=== PATIENT | female | born 1970 | race Caucasian/White ===

== ENCOUNTER 2018-09-12 16:51 | Inpatient (IN) ==
[2018-09-12] MEDS ORDERED: GLUCAGON 1 MG VIAL IM PRN (18:55)
[2018-09-12] MEDS ORDERED: ONDANSETRON 4 MG/2 ML VIAL IV PRN (18:55)
[2018-09-12] MEDS ORDERED: DEXTROSE 50% 25 GM/50 ML SYRINGE IV PRN (18:55)
[2018-09-12] MEDS ORDERED: PROMETHAZINE 25 MG/1 ML VIAL IM PRN (18:55)
[2018-09-12] MEDS: SODIUM CHLORIDE 0.9% 1,000 ML IV SCH (20:00)
[2018-09-12] MEDS ORDERED: INSULIN REGULAR 100 UNIT/ML SUBCUT SCH (21:00)
[2018-09-12] MEDS: INSULIN REGULAR 100 UNIT/ML SUBCUT SCH (23:17)
[2018-09-12] MEDS ORDERED: INFLUENZA VIRUS VACCINE 0.5 ML SYRINGE IM ONE (23:31)
[2018-09-12] MEDS ORDERED: PNEUMOCOCCAL VACCINE (23 VALENT) 0.5 ML VIAL IM ONE (23:31)
[2018-09-13] MEDS: MORPHINE 4 MG/1 ML VIAL IV PRN ×3 (01:37→21:19)
[2018-09-13] MEDS: SODIUM CHLORIDE 0.9% 1,000 ML IV SCH ×3 (03:35→22:27)
[2018-09-13 08:12] LABS: Basophils % 0.5 % (0.0-0.8); Eosinophils # 0.1 10*3/uL (0.0-0.87); Eosinophils % 2.3 % (0.00-10.9); Hemoglobin 11.7 GM/DL (12.0-16.0); Immature Granulocytes % 1.1 %; Immature Granulocytes Absolute 0.07 #; Lymphocytes # 1.9 10*3/uL (1.4-4.0); Lymphocytes % 30.7 % (21.3-54.2); Mean Corpuscular HGB Conc 32.5 GM/DL (32-36); Mean Corpuscular Hemoglobin 30 PG (27-34); Mean Corpuscular Volume 92.3 FL (87-102); Mean Platelet Volume 12.1 FL (9.6-12.0); Monocytes # 0.6 10*3/uL (0.11-0.8); Monocytes % 8.9 % (1.7-12.7); Neutrophils # 3.5 10*3/uL (1.4-7.4); Neutrophils % 56.5 % (38.7-73.9); Platelet Count 223 T/CUMM (130-400); Red Cell Distribution Width 14.6 % (9.3-17.3); White Blood Count 6.2 T/CUMM (4-12)
[2018-09-13] MEDS: INSULIN REGULAR 100 UNIT/ML SUBCUT SCH ×4 (08:26→21:13)
[2018-09-13] MEDS: LISINOPRIL 20 MG TABLET PO SCH (08:27)
[2018-09-13 08:44] LABS: Albumin 1.8 G/DL (3.4-5.0); Bilirubin,Total 6.6 MG/DL (0.2-1.0); Calcium 8.1 MG/DL (8.5-10.1); Osmolality,Calculated 278.7 MOS/KG (273-304); Potassium 3.9 MMOL/L (3.5-5.1); Total Protein 5.8 G/DL (6.4-8.3)
[2018-09-13 09:35] LABS: Hepatitis A Ab IgM Quant 0.09 Index; Hepatitis A Ab IgM Result Negative (Negative); Hepatitis B Core IgM Quant 0.08 Index; Hepatitis B Core IgM Result Negative (Negative); Hepatitis B Surface Ag Quant < 0.10 Index; Hepatitis B Surface Ag Result Negative (Negative); Hepatitis C Virus Ab Quant > 11.00 Index; Hepatitis C Virus Ab Result Positive (Negative)
[2018-09-13] MEDS ORDERED: DEXTROSE 50% 25 GM/50 ML VIAL IV PRN (10:27)
[2018-09-13] MEDS ORDERED: GLUCAGON 1 MG VIAL IM PRN (10:27)
[2018-09-14] MEDS: SODIUM CHLORIDE 0.9% 1,000 ML IV SCH ×3 (01:34→18:30)
[2018-09-14 05:02] LABS: Basophils % 0.4 % (0.0-0.8); Eosinophils # 0.1 10*3/uL (0.0-0.87); Eosinophils % 1.9 % (0.00-10.9); Hematocrit 35.5 VOL% (35.7-47.0); Immature Granulocytes % 0.8 %; Immature Granulocytes Absolute 0.04 #; Lymphocytes # 1.6 10*3/uL (1.4-4.0); Lymphocytes % 29.8 % (21.3-54.2); Mean Corpuscular Hemoglobin 29 PG (27-34); Mean Corpuscular Volume 94.4 FL (87-102); Mean Platelet Volume 12.5 FL (9.6-12.0); Monocytes # 0.7 10*3/uL (0.11-0.8); Monocytes % 12.3 % (1.7-12.7); Neutrophils # 2.9 10*3/uL (1.4-7.4); Neutrophils % 54.8 % (38.7-73.9); Platelet Count 202 T/CUMM (130-400); Red Blood Count 3.76 MC/CUMM (3.8-5.5); Red Cell Distribution Width 14.6 % (9.3-17.3); White Blood Count 5.3 T/CUMM (4-12)
[2018-09-14 05:38] LABS: Albumin 1.7 G/DL (3.4-5.0); Bilirubin,Total 5.9 MG/DL (0.2-1.0); Calcium 8.1 MG/DL (8.5-10.1); Osmolality,Calculated 279.1 MOS/KG (273-304); Potassium 4.1 MMOL/L (3.5-5.1); Total Protein 5.5 G/DL (6.4-8.3)
[2018-09-14] MEDS: INSULIN REGULAR 100 UNIT/ML SUBCUT SCH (08:25)
[2018-09-14] MEDS: LISINOPRIL 20 MG TABLET PO SCH (08:26)
[2018-09-14] MEDS: MORPHINE 4 MG/1 ML VIAL IV PRN ×3 (08:26→22:40)
[2018-09-14] MEDS: INSULIN LISPRO 100 UNIT/ML SUBCUT SCH ×3 (12:29→20:29)
[2018-09-15] MEDS: SODIUM CHLORIDE 0.9% 1,000 ML IV SCH ×3 (04:15→17:29)
[2018-09-15] MEDS: MORPHINE 4 MG/1 ML VIAL IV PRN ×4 (04:17→21:26)
[2018-09-15 05:33] LABS: Basophils % 0.3 % (0.0-0.8); Eosinophils # 0.1 10*3/uL (0.0-0.87); Eosinophils % 2.1 % (0.00-10.9); Hematocrit 35.5 VOL% (35.7-47.0); Hemoglobin 11.2 GM/DL (12.0-16.0); Immature Granulocytes Absolute 0.06 #; Lymphocytes % 32.2 % (21.3-54.2); Mean Corpuscular HGB Conc 31.5 GM/DL (32-36); Mean Corpuscular Hemoglobin 30 PG (27-34); Mean Corpuscular Volume 93.4 FL (87-102); Monocytes # 0.7 10*3/uL (0.11-0.8); Monocytes % 11.1 % (1.7-12.7); Neutrophils # 3.2 10*3/uL (1.4-7.4); Neutrophils % 53.3 % (38.7-73.9); Platelet Count 211 T/CUMM (130-400); Red Cell Distribution Width 14.5 % (9.3-17.3); White Blood Count 6.1 T/CUMM (4-12)
[2018-09-15 05:53] LABS: Albumin 1.8 G/DL (3.4-5.0); Bilirubin,Total 4.7 MG/DL (0.2-1.0); Calcium 8.8 MG/DL (8.5-10.1); Osmolality,Calculated 277.1 MOS/KG (273-304); Potassium 4.1 MMOL/L (3.5-5.1); Total Protein 5.7 G/DL (6.4-8.3)
[2018-09-15] MEDS: LISINOPRIL 20 MG TABLET PO SCH ×2 (08:22→12:34)
[2018-09-15] MEDS: INSULIN LISPRO 100 UNIT/ML SUBCUT SCH ×4 (08:22→21:25)
[2018-09-15] MEDS: glipiZIDE 10 MG TABLET PO SCH (17:28)
[2018-09-16] MEDS: SODIUM CHLORIDE 0.9% 1,000 ML IV SCH ×2 (03:30→13:11)
[2018-09-16 04:31] LABS: Basophils % 0.4 % (0.0-0.8); Eosinophils # 0.1 10*3/uL (0.0-0.87); Hematocrit 36.5 VOL% (35.7-47.0); Hemoglobin 11.5 GM/DL (12.0-16.0); Immature Granulocytes % 1.2 %; Immature Granulocytes Absolute 0.06 #; Lymphocytes # 1.4 10*3/uL (1.4-4.0); Mean Corpuscular HGB Conc 31.5 GM/DL (32-36); Mean Corpuscular Hemoglobin 30 PG (27-34); Mean Corpuscular Volume 94.3 FL (87-102); Mean Platelet Volume 11.8 FL (9.6-12.0); Monocytes # 0.6 10*3/uL (0.11-0.8); Monocytes % 12.4 % (1.7-12.7); Neutrophils # 2.9 10*3/uL (1.4-7.4); Platelet Count 203 T/CUMM (130-400); Red Blood Count 3.87 MC/CUMM (3.8-5.5); Red Cell Distribution Width 14.5 % (9.3-17.3); White Blood Count 5.1 T/CUMM (4-12)
[2018-09-16 04:49] LABS: Albumin 1.8 G/DL (3.4-5.0); Bilirubin,Total 3.5 MG/DL (0.2-1.0); Calcium 8.7 MG/DL (8.5-10.1); Osmolality,Calculated 277.7 MOS/KG (273-304); Potassium 4.2 MMOL/L (3.5-5.1); Total Protein 5.8 G/DL (6.4-8.3)
[2018-09-16] MEDS: MORPHINE 4 MG/1 ML VIAL IV PRN (06:42)
[2018-09-16] MEDS: INSULIN LISPRO 100 UNIT/ML SUBCUT SCH ×4 (08:32→20:30)
[2018-09-16] MEDS: glipiZIDE 10 MG TABLET PO SCH ×2 (08:33→17:18)
[2018-09-16] MEDS: LISINOPRIL 20 MG TABLET PO SCH (09:08)
[2018-09-16] MEDS ORDERED: ONDANSETRON ODT 4 MG TABLET PO PRN (13:43)
[2018-09-16] MEDS: DICYCLOMINE 10 MG CAPSULE PO PRN ×2 (15:10→20:30)
[2018-09-16] MEDS: PANTOPRAZOLE 40 MG TABLET PO SCH (15:10)
[2018-09-17 05:08] LABS: Basophils % 0.4 % (0.0-0.8); Eosinophils # 0.1 10*3/uL (0.0-0.87); Eosinophils % 1.5 % (0.00-10.9); Hematocrit 35.6 VOL% (35.7-47.0); Hemoglobin 11.5 GM/DL (12.0-16.0); Immature Granulocytes % 1.1 %; Immature Granulocytes Absolute 0.06 #; Lymphocytes # 1.7 10*3/uL (1.4-4.0); Lymphocytes % 30.5 % (21.3-54.2); Mean Corpuscular HGB Conc 32.3 GM/DL (32-36); Mean Corpuscular Hemoglobin 30 PG (27-34); Mean Corpuscular Volume 93.9 FL (87-102); Mean Platelet Volume 12.7 FL (9.6-12.0); Monocytes # 0.7 10*3/uL (0.11-0.8); Monocytes % 11.8 % (1.7-12.7); Neutrophils % 54.7 % (38.7-73.9); Platelet Count 193 T/CUMM (130-400); Red Blood Count 3.79 MC/CUMM (3.8-5.5); Red Cell Distribution Width 14.3 % (9.3-17.3); White Blood Count 5.5 T/CUMM (4-12)
[2018-09-17 05:43] LABS: Albumin 1.7 G/DL (3.4-5.0); Bilirubin,Total 2.6 MG/DL (0.2-1.0); Calcium 9.1 MG/DL (8.5-10.1); Osmolality,Calculated 288.1 MOS/KG (273-304); Potassium 3.9 MMOL/L (3.5-5.1); Total Protein 5.9 G/DL (6.4-8.3)
[2018-09-17] MEDS: LISINOPRIL 20 MG TABLET PO SCH (08:22)
[2018-09-17] MEDS: INSULIN LISPRO 100 UNIT/ML SUBCUT SCH ×3 (08:23→17:06)
[2018-09-17] MEDS: glipiZIDE 10 MG TABLET PO SCH ×2 (08:23→17:06)
[2018-09-17] MEDS: PANTOPRAZOLE 40 MG TABLET PO SCH (08:24)
[2018-09-17 11:46] VITALS: BP 149/74
[2018-09-17] MEDS: DICYCLOMINE 10 MG CAPSULE PO PRN (13:43)
== END 2018-09-17 17:09 | disposition home or self-care (01) | DRG 443 ==
LOC: N.3E 18:12 → SUATTDRO 18:12
PROVIDERS: ADMIT Internal Medicine; ATTEND Internal Medicine

== ENCOUNTER 2020-12-04 15:47 | Inpatient (IN) ==
[2020-12-04] MEDS ORDERED: NALOXONE 0.4 MG/ML VIAL IV STA ×2 (16:11)
[2020-12-04] MEDS ORDERED: NALOXONE 0.4 MG/ML VIAL ONE (16:11)
[2020-12-04 16:49] LABS: Basophils % 0.1 % (0.0-0.8); Eosinophils % 0.3 % (0.00-10.9); Hematocrit 28.1 VOL% (35.7-47.0); Hemoglobin 8.5 GM/DL (12.0-16.0); Immature Granulocytes % 0.9 %; Immature Granulocytes Absolute 0.09 #; Lymphocytes # 0.7 10*3/uL (1.4-4.0); Lymphocytes % 6.3 % (21.3-54.2); Mean Corpuscular HGB Conc 30.2 GM/DL (32-36); Mean Corpuscular Volume 93.7 FL (87-102); Mean Platelet Volume 9.3 FL (9.6-12.0); Monocytes % 10.8 % (1.7-12.7); Neutrophils % 81.6 % (38.7-73.9); Platelet Count 344 T/CUMM (130-400); Red Cell Distribution Width 14.5 % (9.3-17.3); White Blood Count 10.6 T/CUMM (4-12)
[2020-12-04 16:58] LABS: Bacteria,Urine Occasional /HPF (Few); Bilirubin,Urine Negative (Negative); Blood, Urine Negative (Negative); Glucose,Urine (UA) >=500 mg/dL (Negative); Hyaline Casts,Urine 1 /LPF (0-3); Ketones,Urine Negative (Negative); Mucus,Urine Occasional /LPF (Occasional); Nitrite,Urine Negative (Negative); Protein,Urine >=500 MG/DL; RBC,Urine 1 /HPF (0-4); Squamous Epithelial Cell,Urine Occasional /HPF (0-10); Urine Appearance CLEAR (Clear); Urine Color Yellow (Yellow); Urine Urobilinogen < 2.0 EU/DL (0.2-1.0); WBC,Urine 13 /HPF (0-6)
[2020-12-04 17:06] LABS: Barbiturates Screen,Urine Negative (Negative); Benzodiazepines Screen,Urine Negative (Negative); Cannabinoid Screen,Urine Negative (Negative); Opiate Screen,Urine Negative (Negative); Phencyclidine Screen,Urine Negative (Negative)
[2020-12-04] MEDS ORDERED: LIDOCAINE 2%/EPI 20 ML VIAL ONE (17:07)
[2020-12-04 17:08] LABS: Lactic Acid 0.5 MMOL/L (0.4-2.0)
[2020-12-04 17:09] LABS: Alanine Aminotransferase 38 U/L (13-56); Alkaline Phosphatase 84 U/L (45-117); Aspartate Amino Transferase 27 U/L (0-37); Bilirubin,Total < 0.39 MG/DL (0.2-1.0); Blood Urea Nitrogen 89 MG/DL (7-18); Calcium 8.5 MG/DL (8.5-10.1); Carbon Dioxide 25 MMOL/L (21-32); Estimated Glom Filtration Rate 8 ML/MIN; Glucose 206 MG/DL (74-106); Osmolality,Calculated 302.1 MOS/KG (273-304); Potassium 4.6 MMOL/L (3.5-5.1); Sodium 135 MMOL/L (136-145); Total Protein 7.6 G/DL (5.0-7.5)
[2020-12-04 17:29] LABS: Urine Specific Gravity 1.014 (1.001-1.035)
[2020-12-04] MEDS ORDERED: GLUCAGON 1 MG VIAL IM PRN (18:17)
[2020-12-04] MEDS ORDERED: LEVOFLOXACIN INJ 100 ML IV ONE (18:27)
[2020-12-04] MEDS ORDERED: LEVOFLOXACIN INJ 500 MG in PREMIX 1 EACH IV ONE (18:30)
[2020-12-04 21:36] LABS: Hepatitis B Core IgM Quant 0.13 Index; Hepatitis B Surface Ag Quant < 0.10 Index; Hepatitis B Surface Ag Result Non-Reactive (NonReactive); Hepatitis C Virus Ab Quant > 11.00 Index; Hepatitis C Virus Ab Result Reactive (NonReactive)
[2020-12-04] MEDS: SODIUM CHLORIDE 0.9% 1,000 ML IV SCH (22:35)
[2020-12-04] MEDS: ENOXAPARIN 30 MG/0.3 ML SYRINGE SUBCUT SCH (22:39)
[2020-12-05] MEDS: INSULIN LISPRO 100 UNIT/ML SUBCUT SCH ×5 (00:34→20:39)
[2020-12-05 02:20] LABS: LDH,Pleural Fluid 414 U/L; Total Protein,Pleural Fluid 4.6 G/DL
[2020-12-05 03:12] LABS: Eosinophils,Pleural Fluid 2 %; Lymphocytes,Pleural Fluid 6 %; Monocytes,Pleural Fluid 2 %; Neutrophils,Pleural Fluid 90 %
[2020-12-05 03:13] LABS: RBC,Pleural Fluid 12641 T/CUMM
[2020-12-05 06:05] LABS: Basophils % 0.1 % (0.0-0.8); Eosinophils # 0.1 10*3/uL (0.0-0.87); Eosinophils % 0.7 % (0.00-10.9); Hematocrit 25.7 VOL% (35.7-47.0); Hemoglobin 7.8 GM/DL (12.0-16.0); Immature Granulocytes % 0.5 %; Immature Granulocytes Absolute 0.05 #; Lymphocytes # 1.1 10*3/uL (1.4-4.0); Lymphocytes % 10.7 % (21.3-54.2); Mean Corpuscular HGB Conc 30.4 GM/DL (32-36); Mean Corpuscular Volume 93.8 FL (87-102); Mean Platelet Volume 9.4 FL (9.6-12.0); Monocytes % 11.5 % (1.7-12.7); Neutrophils % 76.5 % (38.7-73.9); Platelet Count 324 T/CUMM (130-400); Red Blood Count 2.74 MC/CUMM (3.8-5.5); Red Cell Distribution Width 14.6 % (9.3-17.3); White Blood Count 9.8 T/CUMM (4-12)
[2020-12-05 06:39] LABS: Albumin 1.6 G/DL (3.4-5.0); Bilirubin,Total 1.1 MG/DL (0.2-1.0); Calcium 8.3 MG/DL (8.5-10.1); Osmolality,Calculated 300.8 MOS/KG (273-304); Potassium 4.3 MMOL/L (3.5-5.1); Total Protein 6.6 G/DL (5.0-7.5)
[2020-12-05] MEDS: SODIUM CHLORIDE 0.9% 1,000 ML IV SCH ×2 (06:42→13:03)
[2020-12-05] MEDS: MORPHINE 4 MG/1 ML VIAL IV PRN ×3 (08:28→23:04)
[2020-12-05] MEDS: CEFEPIME 1,000 MG in SODIUM CHLORIDE 0.9% 100 ML IV SCH (10:24)
[2020-12-05] MEDS: PANTOPRAZOLE 40 MG TABLET PO SCH (10:24)
[2020-12-05] MEDS: LACTATED RINGERS 1,000 ML IV SCH ×2 (13:49→20:31)
[2020-12-05] MEDS: ENOXAPARIN 30 MG/0.3 ML SYRINGE SUBCUT SCH (20:39)
[2020-12-06] MEDS: LACTATED RINGERS 1,000 ML IV SCH ×3 (03:16→20:01)
[2020-12-06] MEDS: MORPHINE 4 MG/1 ML VIAL IV PRN ×3 (03:49→21:23)
[2020-12-06 05:27] LABS: Basophils % 0.2 % (0.0-0.8); Eosinophils # 0.1 10*3/uL (0.0-0.87); Eosinophils % 1.3 % (0.00-10.9); Hematocrit 25.9 VOL% (35.7-47.0); Hemoglobin 7.6 GM/DL (12.0-16.0); Immature Granulocytes Absolute 0.11 #; Lymphocytes # 1.2 10*3/uL (1.4-4.0); Lymphocytes % 11.1 % (21.3-54.2); Mean Corpuscular HGB Conc 29.3 GM/DL (32-36); Mean Corpuscular Volume 93.8 FL (87-102); Mean Platelet Volume 9.5 FL (9.6-12.0); Monocytes % 12.2 % (1.7-12.7); Neutrophils % 74.2 % (38.7-73.9); Platelet Count 362 T/CUMM (130-400); Red Blood Count 2.76 MC/CUMM (3.8-5.5); Red Cell Distribution Width 14.6 % (9.3-17.3); White Blood Count 10.7 T/CUMM (4-12)
[2020-12-06 05:57] LABS: Calcium 7.9 MG/DL (8.5-10.1); Osmolality,Calculated 300.8 MOS/KG (273-304); Potassium 4.6 MMOL/L (3.5-5.1)
[2020-12-06 06:06] LABS: Total Protein 6.8 G/DL (5.0-7.5)
[2020-12-06 07:20] LABS: Immunoglobulin A (Chem) 141 MG/DL (70-400); Immunoglobulin G (Chem) 2180 MG/DL (700-1600); Immunoglobulin M (Chem) 58 MG/DL (40-230); Random Urine Protein (Bench) 279 MG/DL (<11.9); Total Protein (Chem) 6.8 G/DL (6.4-8.3)
[2020-12-06 08:32] LABS: Albumin (SPE) 2.8 G/DL (3.2-5.3); Albumin (SPE) Rel % 40.6 %; Alpha 1 (SPE) 0.3 G/DL (0.1-0.4); Alpha 1 (SPE) Rel % 4.7 %; Alpha 2 (SPE) 0.8 G/DL (0.4-1.0); Alpha 2 (SPE) Rel % 12.1 %; Beta (SPE) 0.6 G/DL (0.5-1.1); Beta (SPE) Rel % 8.1 %; Gamma (SPE) 2.3 G/DL (0.7-1.7); Gamma (SPE) Rel % 34.5 %
[2020-12-06 09:10] LABS: Albumin (UPER) 217.3 MG/DL; Albumin (UPER) Rel% 77.9 %; Alpha 1 (UPER) 8.9 MG/DL; Alpha 1 (UPER) Rel% 3.2 %; Alpha 2 (UPER) 23.2 MG/DL; Alpha 2 (UPER) Rel % 8.3 %; Beta (UPER) 20.4 MG/DL; Beta (UPER) Rel % 7.3 %; Gamma (UPER) 9.2 MG/DL; Gamma (UPER) Rel % 3.3 %
[2020-12-06] MEDS: PANTOPRAZOLE 40 MG TABLET PO SCH (09:24)
[2020-12-06] MEDS: CEFEPIME 1,000 MG in SODIUM CHLORIDE 0.9% 100 ML IV SCH (09:24)
[2020-12-06] MEDS: INSULIN LISPRO 100 UNIT/ML SUBCUT SCH ×4 (09:43→19:44)
[2020-12-06] MEDS: LEVOFLOXACIN INJ 500 MG in PREMIX 1 EACH IV SCH (11:02)
[2020-12-06 12:28] LABS: Immuno Free Light Chain Lambda 26.15 MG/DL (0.57-2.63)
[2020-12-06] MEDS ORDERED: LEVOFLOXACIN INJ 250 MG in PREMIX 1 EACH IV SCH (18:00)
[2020-12-06] MEDS: ENOXAPARIN 30 MG/0.3 ML SYRINGE SUBCUT SCH (21:23)
[2020-12-07] MEDS: LACTATED RINGERS 1,000 ML IV SCH ×2 (03:05→15:57)
[2020-12-07 06:48] LABS: Basophils % 0.2 % (0.0-0.8); Eosinophils # 0.1 10*3/uL (0.0-0.87); Eosinophils % 1.4 % (0.00-10.9); Hematocrit 26.2 VOL% (35.7-47.0); Hemoglobin 7.6 GM/DL (12.0-16.0); Immature Granulocytes % 1.2 %; Immature Granulocytes Absolute 0.11 #; Lymphocytes # 0.7 10*3/uL (1.4-4.0); Lymphocytes % 7.9 % (21.3-54.2); Mean Corpuscular Volume 96.7 FL (87-102); Mean Platelet Volume 9.3 FL (9.6-12.0); Monocytes % 10.2 % (1.7-12.7); Neutrophils % 79.1 % (38.7-73.9); Platelet Count 344 T/CUMM (130-400); Red Blood Count 2.71 MC/CUMM (3.8-5.5); Red Cell Distribution Width 14.4 % (9.3-17.3); White Blood Count 9.3 T/CUMM (4-12)
[2020-12-07 07:29] LABS: Protein/Creatinine Ratio,Urine 4.5 RATIO
[2020-12-07 07:42] LABS: Calcium 8.3 MG/DL (8.5-10.1); Osmolality,Calculated 299.8 MOS/KG (273-304); Potassium 4.9 MMOL/L (3.5-5.1)
[2020-12-07] MEDS: ONDANSETRON 4 MG/2 ML VIAL IV PRN (07:49)
[2020-12-07] MEDS: INSULIN LISPRO 100 UNIT/ML SUBCUT SCH ×4 (08:23→20:33)
[2020-12-07 08:37] LABS: PT Patient Result 11.2 SECS (9.8-11.9)
[2020-12-07] MEDS: CEFEPIME 1,000 MG in SODIUM CHLORIDE 0.9% 100 ML IV SCH (09:03)
[2020-12-07] MEDS ORDERED: DIAZEPAM 5 MG TABLET PO ONE (09:30)
[2020-12-07] MEDS: PANTOPRAZOLE 40 MG TABLET PO SCH (09:36)
[2020-12-07] MEDS ORDERED: flumazeniL 0.5 MG/5 ML VIAL IV ONE (13:00)
[2020-12-07] MEDS: ENOXAPARIN 30 MG/0.3 ML SYRINGE SUBCUT SCH (20:33)
[2020-12-07] MEDS: ALBUTEROL/IPRATROPIUM 3 ML NEB RESP TX SCH (23:30)
[2020-12-08 05:17] LABS: Basophils % 0.3 % (0.0-0.8); Eosinophils # 0.1 10*3/uL (0.0-0.87); Eosinophils % 0.8 % (0.00-10.9); Hematocrit 24.2 VOL% (35.7-47.0); Immature Granulocytes % 0.9 %; Immature Granulocytes Absolute 0.07 #; Lymphocytes # 0.6 10*3/uL (1.4-4.0); Mean Corpuscular HGB Conc 28.9 GM/DL (32-36); Mean Corpuscular Volume 95.3 FL (87-102); Mean Platelet Volume 9.3 FL (9.6-12.0); Monocytes % 9.6 % (1.7-12.7); Neutrophils % 80.4 % (38.7-73.9); Platelet Count 311 T/CUMM (130-400); Red Blood Count 2.54 MC/CUMM (3.8-5.5); Red Cell Distribution Width 14.1 % (9.3-17.3); White Blood Count 7.4 T/CUMM (4-12)
[2020-12-08 05:45] LABS: Osmolality,Calculated 303.5 MOS/KG (273-304); Potassium 5.3 MMOL/L (3.5-5.1)
[2020-12-08 06:03] LABS: Anisocytosis 1+; Macrocytosis Slight; Platelet Estimate Normal
[2020-12-08] MEDS: ALBUTEROL/IPRATROPIUM 3 ML NEB RESP TX SCH ×3 (07:35→19:23)
[2020-12-08] MEDS: INSULIN LISPRO 100 UNIT/ML SUBCUT SCH ×4 (07:44→21:00)
[2020-12-08] MEDS: LACTATED RINGERS 1,000 ML IV SCH ×2 (07:44→21:00)
[2020-12-08] MEDS: CEFEPIME 1,000 MG in SODIUM CHLORIDE 0.9% 100 ML IV SCH (08:31)
[2020-12-08] MEDS: PANTOPRAZOLE 40 MG TABLET PO SCH (08:31)
[2020-12-08] MEDS: LEVOFLOXACIN INJ 500 MG in PREMIX 1 EACH IV SCH (10:28)
[2020-12-08] MEDS: ONDANSETRON 4 MG/2 ML VIAL IV PRN ×2 (11:58→18:17)
[2020-12-08] MEDS: ENOXAPARIN 30 MG/0.3 ML SYRINGE SUBCUT SCH (21:00)
[2020-12-09] MEDS: ALBUTEROL/IPRATROPIUM 3 ML NEB RESP TX SCH ×4 (00:03→19:08)
[2020-12-09] MEDS: hydrALAZINE 20 MG/1 ML VIAL IV PRN (06:45)
[2020-12-09 06:51] LABS: ABG Base Excess -2.5 MMOL/L (-2.5-2.5); ABG HCO3 22.2 MMOL/L (20-26); ABG Oxygen Saturation 93.8 % (95-100); ABG PCO2 46.1 MM HG (35-48); ABG PH 7.316 (7.35-7.45); ABG PO2 75.3 MM HG (80-95); ABG TCO2 22.3 MMOL/L (23-27)
[2020-12-09] MEDS: MORPHINE 4 MG/1 ML VIAL IV PRN ×2 (07:01→20:00)
[2020-12-09] MEDS: LACTATED RINGERS 1,000 ML IV SCH ×2 (07:05→10:28)
[2020-12-09] MEDS: INSULIN LISPRO 100 UNIT/ML SUBCUT SCH ×4 (07:55→20:00)
[2020-12-09 08:03] LABS: Eosinophils # 0.2 10*3/uL (0.0-0.87); Eosinophils % 1.9 % (0.00-10.9); Hematocrit 23.8 VOL% (35.7-47.0); Hemoglobin 7.2 GM/DL (12.0-16.0); Immature Granulocytes % 0.9 %; Immature Granulocytes Absolute 0.07 #; Lymphocytes # 0.7 10*3/uL (1.4-4.0); Lymphocytes % 8.6 % (21.3-54.2); Mean Corpuscular HGB Conc 30.3 GM/DL (32-36); Mean Corpuscular Volume 94.1 FL (87-102); Mean Platelet Volume 9.4 FL (9.6-12.0); Monocytes % 10.1 % (1.7-12.7); Neutrophils % 78.5 % (38.7-73.9); Platelet Count 314 T/CUMM (130-400); Red Blood Count 2.53 MC/CUMM (3.8-5.5); Red Cell Distribution Width 14.3 % (9.3-17.3); White Blood Count 7.8 T/CUMM (4-12)
[2020-12-09] MEDS: hydrALAZINE 25 MG TABLET PO SCH ×3 (08:37→20:00)
[2020-12-09] MEDS: METOPROLOL TARTRATE 25 MG TABLET PO SCH ×2 (08:37→20:00)
[2020-12-09] MEDS: PANTOPRAZOLE 40 MG TABLET PO SCH (08:37)
[2020-12-09] MEDS: CEFEPIME 1,000 MG in SODIUM CHLORIDE 0.9% 100 ML IV SCH (08:38)
[2020-12-09] MEDS: ISOSORBIDE DINITRATE 10 MG TABLET PO SCH ×3 (08:38→20:00)
[2020-12-09] MEDS: LEVOTHYROXINE 100 MCG TABLET PO SCH (08:38)
[2020-12-09] MEDS: ESCITALOPRAM 10 MG TABLET PO SCH (08:38)
[2020-12-09 12:09] LABS: Calcium 7.9 MG/DL (8.5-10.1); Osmolality,Calculated 307.3 MOS/KG (273-304); Potassium 5.2 MMOL/L (3.5-5.1)
[2020-12-09] MEDS: ONDANSETRON 4 MG/2 ML VIAL IV PRN ×2 (13:16→20:02)
[2020-12-09] MEDS: ENOXAPARIN 30 MG/0.3 ML SYRINGE SUBCUT SCH (20:00)
[2020-12-10] MEDS: ALBUTEROL/IPRATROPIUM 3 ML NEB RESP TX SCH ×4 (00:53→19:44)
[2020-12-10 06:34] LABS: Basophils % 0.2 % (0.0-0.8); Eosinophils # 0.2 10*3/uL (0.0-0.87); Eosinophils % 2.5 % (0.00-10.9); Hematocrit 21.6 VOL% (35.7-47.0); Hemoglobin 6.7 GM/DL (12.0-16.0); Immature Granulocytes % 1.2 %; Immature Granulocytes Absolute 0.08 #; Lymphocytes # 0.6 10*3/uL (1.4-4.0); Lymphocytes % 9.1 % (21.3-54.2); Mean Corpuscular Volume 92.3 FL (87-102); Platelet Count 282 T/CUMM (130-400); Red Blood Count 2.34 MC/CUMM (3.8-5.5); Red Cell Distribution Width 14.4 % (9.3-17.3); White Blood Count 6.5 T/CUMM (4-12)
[2020-12-10 06:52] LABS: Calcium 8.2 MG/DL (8.5-10.1); Osmolality,Calculated 305.4 MOS/KG (273-304); Potassium 4.8 MMOL/L (3.5-5.1)
[2020-12-10] MEDS: LEVOTHYROXINE 100 MCG TABLET PO SCH (07:07)
[2020-12-10] MEDS ORDERED: SODIUM CHLORIDE 0.9% 1,000 ML IV PRN (07:21)
[2020-12-10] MEDS: CEFEPIME 1,000 MG in SODIUM CHLORIDE 0.9% 100 ML IV SCH (08:13)
[2020-12-10] MEDS: ISOSORBIDE DINITRATE 10 MG TABLET PO SCH ×3 (08:14→21:54)
[2020-12-10] MEDS: INSULIN LISPRO 100 UNIT/ML SUBCUT SCH ×4 (08:14→20:51)
[2020-12-10] MEDS: ESCITALOPRAM 10 MG TABLET PO SCH (08:14)
[2020-12-10] MEDS: METOPROLOL TARTRATE 25 MG TABLET PO SCH ×2 (08:14→21:54)
[2020-12-10] MEDS: ERGOCALCIFEROL 50,000 UNIT CAPSULE PO SCH (08:14)
[2020-12-10] MEDS: hydrALAZINE 25 MG TABLET PO SCH ×3 (08:14→21:54)
[2020-12-10] MEDS: PANTOPRAZOLE 40 MG TABLET PO SCH (08:14)
[2020-12-10] MEDS: LACTATED RINGERS 1,000 ML IV SCH ×3 (08:18→17:26)
[2020-12-10] MEDS ORDERED: HEPARIN/NACL 0.9% 2 UNITS/ML 500 ML IV ONE (08:56)
[2020-12-10] MEDS ORDERED: PHENYLEPHRINE DRIP 20 MG/250 ML PREMIX IV ONE (08:56)
[2020-12-10] MEDS ORDERED: propofoL 200 MG/20 ML VIAL IV ONE (09:32)
[2020-12-10] MEDS ORDERED: ROCURONIUM 50 MG/5 ML VIAL IV ONE ×2 (09:32→11:04)
[2020-12-10] MEDS ORDERED: LIDOCAINE 2% 5 ML VIAL ONE ×2 (09:32→11:04)
[2020-12-10] MEDS ORDERED: fentaNYL 100 MCG/2 ML VIAL ONE (09:33)
[2020-12-10] MEDS ORDERED: TALC INTRAPLEURAL POWDER 3 GM VIAL INTRAPLEUR ONE (09:53)
[2020-12-10] MEDS ORDERED: VANCOMYCIN 1,000 MG VIAL ONE (10:25)
[2020-12-10] MEDS ORDERED: VANCOMYCIN INJ 1,000 MG in SODIUM CHLORIDE 0.9% 250 ML IV ONE (11:00)
[2020-12-10] MEDS ORDERED: PHENYLEPHRINE 1 MG/10 ML SYRINGE IV ONE ×2 (11:04→11:30)
[2020-12-10] MEDS ORDERED: SEVOFLURANE 1 UNIT/15 MINUTE INH ONE (11:04)
[2020-12-10] MEDS ORDERED: ceFAZolin 1,000 MG VIAL ONE (11:04)
[2020-12-10] MEDS ORDERED: SODIUM CHLORIDE 0.9% 250 ML IV ONE (11:16)
[2020-12-10] MEDS ORDERED: ONDANSETRON 4 MG/2 ML VIAL IV PRN (12:50)
[2020-12-10] MEDS ORDERED: HYDROmorphone 2 MG/1 ML VIAL IV PRN (12:50)
[2020-12-10] MEDS: hydrALAZINE 20 MG/1 ML VIAL IV PRN (13:58)
[2020-12-10] MEDS: metOLazone 5 MG TABLET PO SCH (14:11)
[2020-12-10] MEDS: LEVOFLOXACIN INJ 500 MG in PREMIX 1 EACH IV SCH (14:11)
[2020-12-10] MEDS: MORPHINE 4 MG/1 ML VIAL IV PRN ×2 (17:25→21:18)
[2020-12-10] MEDS: KETOROLAC 10 MG TABLET PO SCH (18:34)
[2020-12-10] MEDS: METOCLOPRAMIDE 5 MG TABLET PO SCH (21:54)
[2020-12-10] MEDS: GABAPENTIN 100 MG CAPSULE PO SCH (21:54)
[2020-12-10] MEDS: APIXABAN 2.5 MG TABLET PO SCH (21:54)
[2020-12-11] MEDS: LACTATED RINGERS 1,000 ML IV SCH ×5 (01:48→20:00)
[2020-12-11] MEDS: metOLazone 5 MG TABLET PO SCH ×2 (01:49→13:45)
[2020-12-11] MEDS: KETOROLAC 10 MG TABLET PO SCH ×4 (01:49→19:23)
[2020-12-11] MEDS: MORPHINE 4 MG/1 ML VIAL IV PRN (01:50)
[2020-12-11] MEDS: hydrALAZINE 20 MG/1 ML VIAL IV PRN (01:50)
[2020-12-11] MEDS: ALBUTEROL/IPRATROPIUM 3 ML NEB RESP TX SCH ×5 (02:28→23:56)
[2020-12-11 04:43] LABS: Basophils % 0.1 % (0.0-0.8); Eosinophils # 0.1 10*3/uL (0.0-0.87); Eosinophils % 1.2 % (0.00-10.9); Hematocrit 26.8 VOL% (35.7-47.0); Hemoglobin 8.1 GM/DL (12.0-16.0); Immature Granulocytes % 1.1 %; Immature Granulocytes Absolute 0.09 #; Lymphocytes # 0.5 10*3/uL (1.4-4.0); Lymphocytes % 5.8 % (21.3-54.2); Mean Corpuscular HGB Conc 30.2 GM/DL (32-36); Mean Corpuscular Volume 90.2 FL (87-102); Monocytes % 7.2 % (1.7-12.7); Neutrophils % 84.6 % (38.7-73.9); Platelet Count 320 T/CUMM (130-400); Red Blood Count 2.97 MC/CUMM (3.8-5.5); Red Cell Distribution Width 16.6 % (9.3-17.3); White Blood Count 8.1 T/CUMM (4-12)
[2020-12-11 05:05] LABS: ABG Base Excess -3.4 MMOL/L (-2.5-2.5); ABG HCO3 21.6 MMOL/L (20-26); ABG Oxygen Saturation 97.3 % (95-100); ABG PH 7.298 (7.35-7.45); ABG PO2 99.5 MM HG (80-95); ABG TCO2 21.7 MMOL/L (23-27)
[2020-12-11 05:09] LABS: Calcium 8.1 MG/DL (8.5-10.1); Osmolality,Calculated 304.3 MOS/KG (273-304)
[2020-12-11] MEDS: LEVOTHYROXINE 100 MCG TABLET PO SCH (06:21)
[2020-12-11] MEDS: DEXTROSE 50% 25 GM/50 ML VIAL IV PRN ×2 (07:13→16:45)
[2020-12-11] MEDS: INSULIN LISPRO 100 UNIT/ML SUBCUT SCH ×4 (07:30→20:01)
[2020-12-11] MEDS: ASPIRIN CHEW 81 MG TABLET PO SCH (08:08)
[2020-12-11] MEDS: APIXABAN 2.5 MG TABLET PO SCH ×2 (08:08→20:01)
[2020-12-11] MEDS: METOPROLOL TARTRATE 25 MG TABLET PO SCH ×2 (08:08→20:01)
[2020-12-11] MEDS: METOCLOPRAMIDE 5 MG TABLET PO SCH ×2 (08:08→20:01)
[2020-12-11] MEDS: amLODIPine 10 MG TABLET PO SCH (08:08)
[2020-12-11] MEDS: ESCITALOPRAM 10 MG TABLET PO SCH (08:08)
[2020-12-11] MEDS: ISOSORBIDE DINITRATE 10 MG TABLET PO SCH ×3 (08:08→20:01)
[2020-12-11] MEDS: PANTOPRAZOLE 40 MG TABLET PO SCH (08:08)
[2020-12-11] MEDS: ATORVASTATIN 40 MG TABLET PO SCH (08:08)
[2020-12-11] MEDS: FUROSEMIDE 80 MG TABLET PO SCH (08:08)
[2020-12-11] MEDS: hydrALAZINE 25 MG TABLET PO SCH ×3 (08:08→20:01)
[2020-12-11] MEDS: lisinopriL 5 MG TABLET PO SCH (08:08)
[2020-12-11] MEDS: GABAPENTIN 100 MG CAPSULE PO SCH ×2 (08:08→20:01)
[2020-12-11] MEDS: CEFEPIME 1,000 MG in SODIUM CHLORIDE 0.9% 100 ML IV SCH (08:12)
[2020-12-11] MEDS ORDERED: MEROPENEM 1,000 MG in SODIUM CHLORIDE 0.9% 100 ML IV SCH (12:00)
[2020-12-11] MEDS: MEROPENEM 500 MG in SODIUM CHLORIDE 0.9% 100 ML IV SCH (13:45)
[2020-12-11] MEDS: ACETYLCYSTEINE 20% 800 MG/4 ML VIAL RESP TX SCH ×2 (16:12→23:56)
[2020-12-12] MEDS: KETOROLAC 10 MG TABLET PO SCH ×4 (01:13→17:32)
[2020-12-12] MEDS: metOLazone 5 MG TABLET PO SCH ×2 (02:25→14:08)
[2020-12-12] MEDS: LACTATED RINGERS 1,000 ML IV SCH ×4 (02:25→19:19)
[2020-12-12 05:04] LABS: Basophils % 0.1 % (0.0-0.8); Eosinophils # 0.2 10*3/uL (0.0-0.87); Eosinophils % 2.5 % (0.00-10.9); Hematocrit 26.9 VOL% (35.7-47.0); Immature Granulocytes % 1.3 %; Lymphocytes # 0.7 10*3/uL (1.4-4.0); Lymphocytes % 9.2 % (21.3-54.2); Mean Corpuscular HGB Conc 29.7 GM/DL (32-36); Mean Corpuscular Volume 91.2 FL (87-102); Monocytes % 8.1 % (1.7-12.7); Neutrophils % 78.8 % (38.7-73.9); Platelet Count 320 T/CUMM (130-400); Red Blood Count 2.95 MC/CUMM (3.8-5.5); Red Cell Distribution Width 16.9 % (9.3-17.3); White Blood Count 7.9 T/CUMM (4-12)
[2020-12-12 05:25] LABS: Osmolality,Calculated 311.7 MOS/KG (273-304); Potassium 5.1 MMOL/L (3.5-5.1)
[2020-12-12] MEDS: DILTIAZEM INJ 100 MG in SODIUM CHLORIDE 0.9% 100 ML IV SCH (05:51)
[2020-12-12] MEDS ORDERED: METOPROLOL TARTRATE 5 MG/5 ML VIAL IV ONE (06:02)
[2020-12-12] MEDS ORDERED: DILTIAZEM 50 MG/10 ML VIAL IV ONE (06:28)
[2020-12-12] MEDS ORDERED: SODIUM CHLORIDE 0.9% 250 ML IV ONE (06:28)
[2020-12-12] MEDS ORDERED: DILTIAZEM 25 MG/5 ML VIAL IV ONE (06:30)
[2020-12-12] MEDS: LEVOTHYROXINE 100 MCG TABLET PO SCH (06:54)
[2020-12-12] MEDS: ACETYLCYSTEINE 20% 800 MG/4 ML VIAL RESP TX SCH ×2 (07:32→13:24)
[2020-12-12] MEDS: ALBUTEROL/IPRATROPIUM 3 ML NEB RESP TX SCH ×3 (07:32→19:43)
[2020-12-12] MEDS: INSULIN LISPRO 100 UNIT/ML SUBCUT SCH ×3 (08:00→16:41)
[2020-12-12] MEDS: ATORVASTATIN 40 MG TABLET PO SCH (08:28)
[2020-12-12] MEDS: METOCLOPRAMIDE 5 MG TABLET PO SCH ×2 (08:28→20:51)
[2020-12-12] MEDS: ESCITALOPRAM 10 MG TABLET PO SCH (08:28)
[2020-12-12] MEDS: lisinopriL 5 MG TABLET PO SCH (08:28)
[2020-12-12] MEDS: METOPROLOL TARTRATE 25 MG TABLET PO SCH ×2 (08:28→20:50)
[2020-12-12] MEDS: amLODIPine 10 MG TABLET PO SCH (08:28)
[2020-12-12] MEDS: ASPIRIN CHEW 81 MG TABLET PO SCH (08:28)
[2020-12-12] MEDS: PANTOPRAZOLE 40 MG TABLET PO SCH (08:28)
[2020-12-12] MEDS: APIXABAN 2.5 MG TABLET PO SCH ×2 (08:28→20:51)
[2020-12-12] MEDS: GABAPENTIN 100 MG CAPSULE PO SCH ×2 (08:35→20:44)
[2020-12-12] MEDS ORDERED: AMIODARONE INJ 450 MG in DEXTROSE 5% 241 ML IV SCH (09:00)
[2020-12-12] MEDS ORDERED: LACTATED RINGERS 250 ML IV ONE (09:25)
[2020-12-12] MEDS ORDERED: PHENYLEPHRINE DRIP 40 MG/250 ML PREMIX IV ONE (09:28)
[2020-12-12] MEDS ORDERED: PHENYLEPHRINE DRIP 40 MG/250 ML PREMIX IV PRN (09:30)
[2020-12-12] MEDS: LEVOFLOXACIN INJ 500 MG in PREMIX 1 EACH IV SCH (10:05)
[2020-12-12] MEDS: hydrALAZINE 25 MG TABLET PO SCH ×3 (10:11→21:14)
[2020-12-12] MEDS: FUROSEMIDE 80 MG TABLET PO SCH (10:13)
[2020-12-12] MEDS: ISOSORBIDE DINITRATE 10 MG TABLET PO SCH ×3 (10:13→21:14)
[2020-12-12 13:30] LABS: ABG Base Excess -2.7 MMOL/L (-2.5-2.5); ABG Oxygen Saturation 93.9 % (95-100); ABG PCO2 55.8 MM HG (35-48); ABG PH 7.257 (7.35-7.45); ABG PO2 77.4 MM HG (80-95); ABG TCO2 23.4 MMOL/L (23-27)
[2020-12-12] MEDS: MEROPENEM 500 MG in SODIUM CHLORIDE 0.9% 100 ML IV SCH (14:08)
[2020-12-12] MEDS: AMIODARONE INJ 450 MG in DEXTROSE 5% 241 ML IV SCH (17:25)
[2020-12-13] MEDS: INSULIN LISPRO 100 UNIT/ML SUBCUT SCH ×4 (00:07→18:30)
[2020-12-13] MEDS: ALBUTEROL/IPRATROPIUM 3 ML NEB RESP TX SCH ×4 (00:15→20:18)
[2020-12-13] MEDS: ACETYLCYSTEINE 20% 800 MG/4 ML VIAL RESP TX SCH ×3 (00:15→14:09)
[2020-12-13] MEDS: KETOROLAC 10 MG TABLET PO SCH ×4 (00:20→18:10)
[2020-12-13] MEDS: metOLazone 5 MG TABLET PO SCH ×2 (00:20→13:45)
[2020-12-13 04:36] LABS: Basophils % 0.1 % (0.0-0.8); Eosinophils # 0.2 10*3/uL (0.0-0.87); Eosinophils % 1.8 % (0.00-10.9); Hematocrit 27.8 VOL% (35.7-47.0); Hemoglobin 8.5 GM/DL (12.0-16.0); Immature Granulocytes % 1.3 %; Immature Granulocytes Absolute 0.11 #; Lymphocytes # 0.8 10*3/uL (1.4-4.0); Lymphocytes % 9.3 % (21.3-54.2); Mean Corpuscular HGB Conc 30.6 GM/DL (32-36); Mean Corpuscular Volume 91.1 FL (87-102); Mean Platelet Volume 9.1 FL (9.6-12.0); Monocytes % 7.7 % (1.7-12.7); Neutrophils % 79.8 % (38.7-73.9); Platelet Count 290 T/CUMM (130-400); Red Blood Count 3.05 MC/CUMM (3.8-5.5); Red Cell Distribution Width 16.8 % (9.3-17.3); White Blood Count 8.5 T/CUMM (4-12)
[2020-12-13 04:48] LABS: Alanine Aminotransferase < 6 U/L (13-56); Albumin 1.4 G/DL (3.4-5.0); Alkaline Phosphatase 60 U/L (45-117); Aspartate Amino Transferase 14 U/L (0-37); Bilirubin,Total < 0.39 MG/DL (0.2-1.0); Blood Urea Nitrogen 90 MG/DL (7-18); Carbon Dioxide 23 MMOL/L (21-32); Estimated Glom Filtration Rate 10 ML/MIN; Glucose 98 MG/DL (74-106); Osmolality,Calculated 306.4 MOS/KG (273-304); Potassium 5.8 MMOL/L (3.5-5.1); Sodium 140 MMOL/L (136-145); Total Protein 6.2 G/DL (5.0-7.5)
[2020-12-13 04:49] LABS: ABG Base Excess -2.9 MMOL/L (-2.5-2.5); ABG HCO3 22.6 MMOL/L (20-26); ABG Oxygen Saturation 96.7 % (95-100); ABG PH 7.348 (7.35-7.45); ABG PO2 96.2 MM HG (80-95); ABG TCO2 23.9 MMOL/L (23-27)
[2020-12-13] MEDS: DILTIAZEM INJ 100 MG in SODIUM CHLORIDE 0.9% 100 ML IV SCH (05:30)
[2020-12-13] MEDS: LEVOTHYROXINE 100 MCG TABLET PO SCH (06:07)
[2020-12-13] MEDS: METOCLOPRAMIDE 5 MG TABLET PO SCH ×2 (08:51→20:27)
[2020-12-13] MEDS: GABAPENTIN 100 MG CAPSULE PO SCH ×2 (08:51→20:27)
[2020-12-13] MEDS: ATORVASTATIN 40 MG TABLET PO SCH (08:51)
[2020-12-13] MEDS: APIXABAN 2.5 MG TABLET PO SCH ×2 (08:51→20:27)
[2020-12-13] MEDS: ASPIRIN CHEW 81 MG TABLET PO SCH (08:51)
[2020-12-13] MEDS: METOPROLOL TARTRATE 25 MG TABLET PO SCH ×2 (08:51→20:27)
[2020-12-13] MEDS: ESCITALOPRAM 10 MG TABLET PO SCH (08:51)
[2020-12-13] MEDS: FUROSEMIDE 80 MG TABLET PO SCH (08:51)
[2020-12-13] MEDS: AMIODARONE INJ 450 MG in DEXTROSE 5% 241 ML IV SCH (10:43)
[2020-12-13] MEDS: hydrALAZINE 25 MG TABLET PO SCH ×3 (12:00→23:00)
[2020-12-13] MEDS: ISOSORBIDE DINITRATE 10 MG TABLET PO SCH ×3 (12:01→23:00)
[2020-12-13] MEDS: lisinopriL 5 MG TABLET PO SCH (12:01)
[2020-12-13] MEDS: amLODIPine 10 MG TABLET PO SCH (12:01)
[2020-12-13] MEDS: SKIN HEALING OINT (AQUAPHOR) 50 GM TUBE TOP SCH (13:45)
[2020-12-13] MEDS: MEROPENEM 500 MG in SODIUM CHLORIDE 0.9% 100 ML IV SCH (14:45)
[2020-12-13] MEDS: PANTOPRAZOLE 40 MG VIAL IV SCH (14:45)
[2020-12-13] MEDS: FUROSEMIDE 40 MG/4 ML VIAL IV SCH (15:56)
[2020-12-13] MEDS: AMIODARONE 200 MG TABLET PO SCH (20:27)
[2020-12-14] MEDS: ACETYLCYSTEINE 20% 800 MG/4 ML VIAL RESP TX SCH ×3 (00:10→15:05)
[2020-12-14] MEDS: ALBUTEROL/IPRATROPIUM 3 ML NEB RESP TX SCH ×4 (00:10→19:57)
[2020-12-14] MEDS: INSULIN LISPRO 100 UNIT/ML SUBCUT SCH ×5 (00:22→23:52)
[2020-12-14] MEDS: metOLazone 5 MG TABLET PO SCH ×2 (00:23→15:58)
[2020-12-14] MEDS: KETOROLAC 10 MG TABLET PO SCH ×4 (00:23→17:16)
[2020-12-14 04:56] LABS: ABG Base Excess -2.8 MMOL/L (-2.5-2.5); ABG HCO3 22.1 MMOL/L (20-26); ABG Oxygen Saturation 98.4 % (95-100); ABG PH 7.298 (7.35-7.45); ABG TCO2 21.9 MMOL/L (23-27); Basophils % 0.2 % (0.0-0.8); Eosinophils # 0.2 10*3/uL (0.0-0.87); Eosinophils % 1.8 % (0.00-10.9); Hematocrit 28.1 VOL% (35.7-47.0); Hemoglobin 8.3 GM/DL (12.0-16.0); Immature Granulocytes % 1.3 %; Immature Granulocytes Absolute 0.12 #; Lymphocytes # 0.8 10*3/uL (1.4-4.0); Lymphocytes % 8.7 % (21.3-54.2); Mean Corpuscular HGB Conc 29.5 GM/DL (32-36); Mean Corpuscular Volume 92.4 FL (87-102); Mean Platelet Volume 8.8 FL (9.6-12.0); Monocytes % 6.9 % (1.7-12.7); Neutrophils % 81.1 % (38.7-73.9); Platelet Count 266 T/CUMM (130-400); Red Blood Count 3.04 MC/CUMM (3.8-5.5); Red Cell Distribution Width 16.4 % (9.3-17.3); White Blood Count 9.4 T/CUMM (4-12)
[2020-12-14 05:09] LABS: Osmolality,Calculated 309.3 MOS/KG (273-304); Potassium 5.4 MMOL/L (3.5-5.1)
[2020-12-14] MEDS: LEVOTHYROXINE 100 MCG TABLET PO SCH (06:00)
[2020-12-14] MEDS: METOCLOPRAMIDE 5 MG TABLET PO SCH ×2 (09:11→20:38)
[2020-12-14] MEDS: AMIODARONE 200 MG TABLET PO SCH ×2 (09:11→20:38)
[2020-12-14] MEDS: ISOSORBIDE DINITRATE 10 MG TABLET PO SCH ×3 (09:11→20:37)
[2020-12-14] MEDS: ASPIRIN CHEW 81 MG TABLET PO SCH (09:11)
[2020-12-14] MEDS: lisinopriL 5 MG TABLET PO SCH (09:12)
[2020-12-14] MEDS: amLODIPine 10 MG TABLET PO SCH (09:12)
[2020-12-14] MEDS: ATORVASTATIN 40 MG TABLET PO SCH (09:12)
[2020-12-14] MEDS: PANTOPRAZOLE 40 MG VIAL IV SCH (09:12)
[2020-12-14] MEDS: METOPROLOL TARTRATE 25 MG TABLET PO SCH ×2 (09:12→20:38)
[2020-12-14] MEDS: GABAPENTIN 100 MG CAPSULE PO SCH ×2 (09:12→20:38)
[2020-12-14] MEDS: ESCITALOPRAM 10 MG TABLET PO SCH (09:12)
[2020-12-14] MEDS: FUROSEMIDE 40 MG/4 ML VIAL IV SCH ×2 (09:13→15:59)
[2020-12-14] MEDS: SKIN HEALING OINT (AQUAPHOR) 50 GM TUBE TOP SCH (11:20)
[2020-12-14] MEDS: APIXABAN 2.5 MG TABLET PO SCH ×2 (12:08→20:38)
[2020-12-14] MEDS: MEROPENEM 500 MG in SODIUM CHLORIDE 0.9% 100 ML IV SCH (12:08)
[2020-12-14] MEDS ORDERED: HEPARIN 10,000 UNIT/10 ML VIAL IV SCH (16:30)
[2020-12-15] MEDS: KETOROLAC 10 MG TABLET PO SCH ×3 (00:22→11:53)
[2020-12-15] MEDS: ALBUTEROL/IPRATROPIUM 3 ML NEB RESP TX SCH ×4 (00:30→20:07)
[2020-12-15] MEDS: ACETYLCYSTEINE 20% 800 MG/4 ML VIAL RESP TX SCH ×3 (00:30→15:09)
[2020-12-15 04:24] LABS: ABG Base Excess -0.5 MMOL/L (-2.5-2.5); ABG Oxygen Saturation 99.5 % (95-100); ABG PCO2 47.7 MM HG (35-48); ABG PH 7.337 (7.35-7.45); ABG TCO2 23.7 MMOL/L (23-27)
[2020-12-15 04:30] LABS: Basophils % 0.3 % (0.0-0.8); Eosinophils # 0.3 10*3/uL (0.0-0.87); Eosinophils % 2.4 % (0.00-10.9); Hematocrit 29.5 VOL% (35.7-47.0); Hemoglobin 8.8 GM/DL (12.0-16.0); Immature Granulocytes % 1.4 %; Immature Granulocytes Absolute 0.16 #; Lymphocytes # 0.7 10*3/uL (1.4-4.0); Lymphocytes % 6.3 % (21.3-54.2); Mean Corpuscular HGB Conc 29.8 GM/DL (32-36); Mean Corpuscular Volume 91.3 FL (87-102); Mean Platelet Volume 9.4 FL (9.6-12.0); Monocytes % 6.9 % (1.7-12.7); Neutrophils % 82.7 % (38.7-73.9); Platelet Count 328 T/CUMM (130-400); Red Blood Count 3.23 MC/CUMM (3.8-5.5); Red Cell Distribution Width 16.3 % (9.3-17.3); White Blood Count 11.8 T/CUMM (4-12)
[2020-12-15 05:25] LABS: Alanine Aminotransferase < 9 U/L (13-56); Albumin 1.5 G/DL (3.4-5.0); Alkaline Phosphatase 75 U/L (45-117); Aspartate Amino Transferase 16 U/L (0-37); Blood Urea Nitrogen 74 MG/DL (7-18); Calcium 7.8 MG/DL (8.5-10.1); Carbon Dioxide 25 MMOL/L (21-32); Estimated Glom Filtration Rate 11 ML/MIN; Glucose 100 MG/DL (74-106); Osmolality,Calculated 302.3 MOS/KG (273-304); Potassium 4.7 MMOL/L (3.5-5.1); Sodium 141 MMOL/L (136-145); Total Protein 6.5 G/DL (5.0-7.5)
[2020-12-15] MEDS: LEVOTHYROXINE 100 MCG TABLET PO SCH (06:19)
[2020-12-15] MEDS: INSULIN LISPRO 100 UNIT/ML SUBCUT SCH ×4 (06:31→20:34)
[2020-12-15] MEDS ORDERED: ALPRAZolam 0.25 MG TABLET PO PRN (08:13)
[2020-12-15] MEDS: PANTOPRAZOLE 40 MG VIAL IV SCH (09:11)
[2020-12-15] MEDS: ISOSORBIDE DINITRATE 10 MG TABLET PO SCH ×3 (09:12→23:50)
[2020-12-15] MEDS: GABAPENTIN 100 MG CAPSULE PO SCH ×2 (09:12→20:33)
[2020-12-15] MEDS: ESCITALOPRAM 10 MG TABLET PO SCH (09:12)
[2020-12-15] MEDS: ATORVASTATIN 40 MG TABLET PO SCH (09:12)
[2020-12-15] MEDS: METOCLOPRAMIDE 5 MG TABLET PO SCH ×2 (09:12→20:33)
[2020-12-15] MEDS: ASPIRIN CHEW 81 MG TABLET PO SCH (09:12)
[2020-12-15] MEDS: APIXABAN 2.5 MG TABLET PO SCH ×2 (09:12→20:33)
[2020-12-15] MEDS: AMIODARONE 200 MG TABLET PO SCH ×2 (09:13→20:34)
[2020-12-15] MEDS: amLODIPine 10 MG TABLET PO SCH (09:13)
[2020-12-15] MEDS: lisinopriL 5 MG TABLET PO SCH (09:13)
[2020-12-15] MEDS: METOPROLOL TARTRATE 25 MG TABLET PO SCH ×2 (09:13→20:44)
[2020-12-15] MEDS: SKIN HEALING OINT (AQUAPHOR) 50 GM TUBE TOP SCH (09:13)
[2020-12-15] MEDS: MEROPENEM 500 MG in SODIUM CHLORIDE 0.9% 100 ML IV SCH (11:53)
[2020-12-15] MEDS ORDERED: ZINC OXIDE PASTE 113 GM TUBE TOP PRN (17:13)
[2020-12-16] MEDS: ALBUTEROL/IPRATROPIUM 3 ML NEB RESP TX SCH ×4 (00:49→19:32)
[2020-12-16] MEDS: ACETYLCYSTEINE 20% 800 MG/4 ML VIAL RESP TX SCH ×4 (00:49→13:58)
[2020-12-16 04:38] LABS: Basophils % 0.3 % (0.0-0.8); Eosinophils # 0.2 10*3/uL (0.0-0.87); Eosinophils % 2.3 % (0.00-10.9); Hematocrit 26.3 VOL% (35.7-47.0); Hemoglobin 8.1 GM/DL (12.0-16.0); Immature Granulocytes % 1.5 %; Immature Granulocytes Absolute 0.15 #; Lymphocytes # 1.1 10*3/uL (1.4-4.0); Lymphocytes % 11.2 % (21.3-54.2); Mean Corpuscular HGB Conc 30.8 GM/DL (32-36); Mean Corpuscular Volume 89.2 FL (87-102); Mean Platelet Volume 9.3 FL (9.6-12.0); Monocytes % 9.5 % (1.7-12.7); Neutrophils % 75.2 % (38.7-73.9); Platelet Count 266 T/CUMM (130-400); Red Blood Count 2.95 MC/CUMM (3.8-5.5); Red Cell Distribution Width 16.3 % (9.3-17.3); White Blood Count 9.9 T/CUMM (4-12)
[2020-12-16 05:02] LABS: Alanine Aminotransferase < 6 U/L (13-56); Albumin 1.4 G/DL (3.4-5.0); Alkaline Phosphatase 74 U/L (45-117); Aspartate Amino Transferase 16 U/L (0-37); Bilirubin,Total < 0.39 MG/DL (0.2-1.0); Blood Urea Nitrogen 45 MG/DL (7-18); Calcium 7.3 MG/DL (8.5-10.1); Carbon Dioxide 28 MMOL/L (21-32); Estimated Glom Filtration Rate 16 ML/MIN; Glucose 86 MG/DL (74-106); Osmolality,Calculated 291.3 MOS/KG (273-304); Potassium 4.4 MMOL/L (3.5-5.1); Sodium 141 MMOL/L (136-145); Total Protein 5.9 G/DL (5.0-7.5)
[2020-12-16] MEDS: LEVOTHYROXINE 100 MCG TABLET PO SCH (06:34)
[2020-12-16] MEDS: INSULIN LISPRO 100 UNIT/ML SUBCUT SCH ×4 (07:55→21:57)
[2020-12-16] MEDS: amLODIPine 10 MG TABLET PO SCH (08:33)
[2020-12-16] MEDS: AMIODARONE 200 MG TABLET PO SCH ×2 (08:33→21:57)
[2020-12-16] MEDS: APIXABAN 2.5 MG TABLET PO SCH ×2 (08:33→21:56)
[2020-12-16] MEDS: METOCLOPRAMIDE 5 MG TABLET PO SCH ×2 (08:33→21:56)
[2020-12-16] MEDS: ASPIRIN CHEW 81 MG TABLET PO SCH (08:33)
[2020-12-16] MEDS: METOPROLOL TARTRATE 25 MG TABLET PO SCH ×2 (08:33→21:56)
[2020-12-16] MEDS: ATORVASTATIN 40 MG TABLET PO SCH (08:33)
[2020-12-16] MEDS: SKIN HEALING OINT (AQUAPHOR) 50 GM TUBE TOP SCH (08:34)
[2020-12-16] MEDS: ESCITALOPRAM 10 MG TABLET PO SCH (08:34)
[2020-12-16] MEDS: lisinopriL 5 MG TABLET PO SCH (08:34)
[2020-12-16] MEDS: ISOSORBIDE DINITRATE 10 MG TABLET PO SCH ×3 (08:34→21:56)
[2020-12-16] MEDS: GABAPENTIN 100 MG CAPSULE PO SCH ×2 (08:34→21:56)
[2020-12-16] MEDS: PANTOPRAZOLE 40 MG VIAL IV SCH (08:37)
[2020-12-16] MEDS: MEROPENEM 500 MG in SODIUM CHLORIDE 0.9% 100 ML IV SCH (13:37)
[2020-12-17] MEDS: ALBUTEROL/IPRATROPIUM 3 ML NEB RESP TX SCH ×4 (01:09→19:41)
[2020-12-17] MEDS: ACETYLCYSTEINE 20% 800 MG/4 ML VIAL RESP TX SCH ×3 (01:09→15:38)
[2020-12-17 06:00] LABS: Basophils % 0.2 % (0.0-0.8); Eosinophils # 0.2 10*3/uL (0.0-0.87); Eosinophils % 1.8 % (0.00-10.9); Hemoglobin 7.8 GM/DL (12.0-16.0); Immature Granulocytes % 1.5 %; Immature Granulocytes Absolute 0.19 #; Lymphocytes # 1.1 10*3/uL (1.4-4.0); Lymphocytes % 8.6 % (21.3-54.2); Mean Corpuscular HGB Conc 31.2 GM/DL (32-36); Mean Corpuscular Volume 90.3 FL (87-102); Mean Platelet Volume 9.6 FL (9.6-12.0); Monocytes % 8.7 % (1.7-12.7); Neutrophils % 79.2 % (38.7-73.9); Platelet Count 256 T/CUMM (130-400); Red Blood Count 2.77 MC/CUMM (3.8-5.5); Red Cell Distribution Width 16.2 % (9.3-17.3); White Blood Count 12.6 T/CUMM (4-12)
[2020-12-17] MEDS: LEVOTHYROXINE 100 MCG TABLET PO SCH (06:06)
[2020-12-17 06:27] LABS: Alanine Aminotransferase < 6 U/L (13-56); Albumin 1.5 G/DL (3.4-5.0); Alkaline Phosphatase 75 U/L (45-117); Aspartate Amino Transferase 15 U/L (0-37); Bilirubin,Total < 0.39 MG/DL (0.2-1.0); Blood Urea Nitrogen 54 MG/DL (7-18); Calcium 7.7 MG/DL (8.5-10.1); Carbon Dioxide 26 MMOL/L (21-32); Estimated Glom Filtration Rate 14 ML/MIN; Glucose 78 MG/DL (74-106); Osmolality,Calculated 294.3 MOS/KG (273-304); Potassium 4.5 MMOL/L (3.5-5.1); Sodium 141 MMOL/L (136-145); Total Protein 5.8 G/DL (5.0-7.5)
[2020-12-17] MEDS: AMIODARONE 200 MG TABLET PO SCH ×2 (09:08→20:57)
[2020-12-17] MEDS: METOCLOPRAMIDE 5 MG TABLET PO SCH ×2 (09:09→20:57)
[2020-12-17] MEDS: METOPROLOL TARTRATE 25 MG TABLET PO SCH ×2 (09:09→20:57)
[2020-12-17] MEDS: ASPIRIN CHEW 81 MG TABLET PO SCH (09:09)
[2020-12-17] MEDS: GABAPENTIN 100 MG CAPSULE PO SCH ×2 (09:10→20:56)
[2020-12-17] MEDS: INSULIN LISPRO 100 UNIT/ML SUBCUT SCH ×4 (09:10→20:57)
[2020-12-17] MEDS: ATORVASTATIN 40 MG TABLET PO SCH (09:10)
[2020-12-17] MEDS: lisinopriL 5 MG TABLET PO SCH (09:10)
[2020-12-17] MEDS: ESCITALOPRAM 10 MG TABLET PO SCH (09:10)
[2020-12-17] MEDS: ERGOCALCIFEROL 50,000 UNIT CAPSULE PO SCH (09:10)
[2020-12-17] MEDS: APIXABAN 2.5 MG TABLET PO SCH ×2 (09:10→20:56)
[2020-12-17] MEDS: ISOSORBIDE DINITRATE 10 MG TABLET PO SCH ×3 (09:10→20:57)
[2020-12-17] MEDS: SKIN HEALING OINT (AQUAPHOR) 50 GM TUBE TOP SCH (09:11)
[2020-12-17] MEDS: PANTOPRAZOLE 40 MG VIAL IV SCH (09:11)
[2020-12-17] MEDS: amLODIPine 10 MG TABLET PO SCH (09:11)
[2020-12-17] MEDS: MEROPENEM 500 MG in SODIUM CHLORIDE 0.9% 100 ML IV SCH (16:45)
[2020-12-18] MEDS: ACETYLCYSTEINE 20% 800 MG/4 ML VIAL RESP TX SCH ×3 (01:24→13:22)
[2020-12-18] MEDS: ALBUTEROL/IPRATROPIUM 3 ML NEB RESP TX SCH ×4 (01:25→19:48)
[2020-12-18 04:48] LABS: Basophils % 0.2 % (0.0-0.8); Eosinophils # 0.3 10*3/uL (0.0-0.87); Eosinophils % 2.6 % (0.00-10.9); Hematocrit 25.3 VOL% (35.7-47.0); Hemoglobin 7.6 GM/DL (12.0-16.0); Immature Granulocytes % 1.5 %; Immature Granulocytes Absolute 0.14 #; Lymphocytes # 1.1 10*3/uL (1.4-4.0); Lymphocytes % 11.3 % (21.3-54.2); Mean Corpuscular Volume 91.3 FL (87-102); Mean Platelet Volume 9.5 FL (9.6-12.0); Neutrophils % 73.4 % (38.7-73.9); Platelet Count 265 T/CUMM (130-400); Red Blood Count 2.77 MC/CUMM (3.8-5.5); Red Cell Distribution Width 16.1 % (9.3-17.3); White Blood Count 9.5 T/CUMM (4-12)
[2020-12-18 05:11] LABS: Calcium 7.4 MG/DL (8.5-10.1); Osmolality,Calculated 290.1 MOS/KG (273-304); Potassium 4.3 MMOL/L (3.5-5.1)
[2020-12-18] MEDS: LEVOTHYROXINE 100 MCG TABLET PO SCH (07:40)
[2020-12-18] MEDS ORDERED: BUPIVACAINE 0.5% 50 ML VIAL ONE (08:34)
[2020-12-18] MEDS ORDERED: HEPARIN 5,000 UNIT/1 ML VIAL ONE (08:34)
[2020-12-18] MEDS ORDERED: LIDOCAINE 1%/EPI INJ 20 ML VIAL ONE (08:34)
[2020-12-18] MEDS: INSULIN LISPRO 100 UNIT/ML SUBCUT SCH ×4 (08:42→21:21)
[2020-12-18] MEDS ORDERED: SODIUM CHLORIDE 0.9% 250 ML IV SCH (09:00)
[2020-12-18] MEDS ORDERED: fentaNYL 100 MCG/2 ML VIAL ONE (09:04)
[2020-12-18] MEDS ORDERED: MIDAZOLAM 2 MG/2 ML VIAL ONE (09:04)
[2020-12-18] MEDS ORDERED: SODIUM CHLORIDE 0.9% 100 ML IV ONE (09:05)
[2020-12-18] MEDS ORDERED: propofoL 200 MG/20 ML VIAL IV ONE (09:05)
[2020-12-18] MEDS ORDERED: LIDOCAINE 2% 5 ML VIAL ONE (09:05)
[2020-12-18] MEDS: GABAPENTIN 100 MG CAPSULE PO SCH ×2 (09:33→21:21)
[2020-12-18] MEDS: amLODIPine 10 MG TABLET PO SCH (09:33)
[2020-12-18] MEDS: ISOSORBIDE DINITRATE 10 MG TABLET PO SCH ×3 (09:33→21:20)
[2020-12-18] MEDS: AMIODARONE 200 MG TABLET PO SCH ×2 (09:33→21:21)
[2020-12-18] MEDS: ESCITALOPRAM 10 MG TABLET PO SCH (09:33)
[2020-12-18] MEDS: APIXABAN 2.5 MG TABLET PO SCH ×2 (09:33→21:21)
[2020-12-18] MEDS: ASPIRIN CHEW 81 MG TABLET PO SCH (09:33)
[2020-12-18] MEDS: ATORVASTATIN 40 MG TABLET PO SCH (09:33)
[2020-12-18] MEDS: METOPROLOL TARTRATE 25 MG TABLET PO SCH ×2 (09:33→21:20)
[2020-12-18] MEDS: lisinopriL 5 MG TABLET PO SCH (09:33)
[2020-12-18] MEDS: METOCLOPRAMIDE 5 MG TABLET PO SCH ×2 (09:34→21:27)
[2020-12-18] MEDS: SKIN HEALING OINT (AQUAPHOR) 50 GM TUBE TOP SCH (10:53)
[2020-12-18] MEDS: PANTOPRAZOLE 40 MG VIAL IV SCH (12:28)
[2020-12-18] MEDS: MEROPENEM 500 MG in SODIUM CHLORIDE 0.9% 100 ML IV SCH (12:28)
[2020-12-18] MEDS ORDERED: MAGNESIUM CHLORIDE 64 MG TABLET PO ONE (13:23)
[2020-12-19] MEDS: ALBUTEROL/IPRATROPIUM 3 ML NEB RESP TX SCH ×4 (00:21→19:00)
[2020-12-19] MEDS: ACETYLCYSTEINE 20% 800 MG/4 ML VIAL RESP TX SCH ×3 (00:21→14:36)
[2020-12-19] MEDS: LEVOTHYROXINE 100 MCG TABLET PO SCH (06:00)
[2020-12-19 06:10] LABS: Basophils % 0.5 % (0.0-0.8); Eosinophils # 0.3 10*3/uL (0.0-0.87); Eosinophils % 3.2 % (0.00-10.9); Hematocrit 25.8 VOL% (35.7-47.0); Hemoglobin 7.9 GM/DL (12.0-16.0); Immature Granulocytes % 1.4 %; Immature Granulocytes Absolute 0.12 #; Lymphocytes # 1.2 10*3/uL (1.4-4.0); Lymphocytes % 13.4 % (21.3-54.2); Mean Corpuscular HGB Conc 30.6 GM/DL (32-36); Mean Corpuscular Volume 89.3 FL (87-102); Mean Platelet Volume 9.7 FL (9.6-12.0); Monocytes % 10.5 % (1.7-12.7); Platelet Count 263 T/CUMM (130-400); Red Blood Count 2.89 MC/CUMM (3.8-5.5); Red Cell Distribution Width 16.1 % (9.3-17.3); White Blood Count 8.7 T/CUMM (4-12)
[2020-12-19 06:41] LABS: Calcium 7.9 MG/DL (8.5-10.1); Osmolality,Calculated 286.5 MOS/KG (273-304); Potassium 4.8 MMOL/L (3.5-5.1)
[2020-12-19] MEDS: INSULIN LISPRO 100 UNIT/ML SUBCUT SCH ×4 (08:00→21:29)
[2020-12-19] MEDS: GABAPENTIN 100 MG CAPSULE PO SCH ×2 (09:13→21:29)
[2020-12-19] MEDS: SEVELAMER CARBONATE 800 MG TABLET PO SCH ×3 (09:13→16:22)
[2020-12-19] MEDS: ASPIRIN CHEW 81 MG TABLET PO SCH (09:13)
[2020-12-19] MEDS: PANTOPRAZOLE 40 MG VIAL IV SCH (09:13)
[2020-12-19] MEDS: ISOSORBIDE DINITRATE 10 MG TABLET PO SCH ×3 (09:13→21:29)
[2020-12-19] MEDS: METOCLOPRAMIDE 5 MG TABLET PO SCH ×2 (09:14→21:29)
[2020-12-19] MEDS: APIXABAN 2.5 MG TABLET PO SCH ×2 (09:14→21:29)
[2020-12-19] MEDS: ATORVASTATIN 40 MG TABLET PO SCH (09:14)
[2020-12-19] MEDS: METOPROLOL TARTRATE 25 MG TABLET PO SCH ×2 (09:14→21:32)
[2020-12-19] MEDS: SKIN HEALING OINT (AQUAPHOR) 50 GM TUBE TOP SCH (09:14)
[2020-12-19] MEDS: AMIODARONE 200 MG TABLET PO SCH ×2 (09:14→21:32)
[2020-12-19] MEDS: lisinopriL 5 MG TABLET PO SCH (09:14)
[2020-12-19] MEDS: ESCITALOPRAM 10 MG TABLET PO SCH (09:15)
[2020-12-19] MEDS: amLODIPine 10 MG TABLET PO SCH (09:15)
[2020-12-19] MEDS: MEROPENEM 500 MG in SODIUM CHLORIDE 0.9% 100 ML IV SCH (11:40)
[2020-12-19 16:13] LABS: Basophils % 0.3 % (0.0-0.8); Eosinophils # 0.3 10*3/uL (0.0-0.87); Eosinophils % 3.3 % (0.00-10.9); Hematocrit 24.7 VOL% (35.7-47.0); Hemoglobin 7.8 GM/DL (12.0-16.0); Immature Granulocytes % 1.4 %; Immature Granulocytes Absolute 0.12 #; Lymphocytes # 0.8 10*3/uL (1.4-4.0); Lymphocytes % 8.7 % (21.3-54.2); Mean Corpuscular HGB Conc 31.6 GM/DL (32-36); Mean Corpuscular Volume 87.9 FL (87-102); Mean Platelet Volume 9.5 FL (9.6-12.0); Monocytes % 10.1 % (1.7-12.7); Neutrophils % 76.2 % (38.7-73.9); Platelet Count 259 T/CUMM (130-400); Red Blood Count 2.81 MC/CUMM (3.8-5.5); Red Cell Distribution Width 15.9 % (9.3-17.3); White Blood Count 8.7 T/CUMM (4-12)
[2020-12-19 16:37] LABS: % Iron Saturation 28.1 % (18-50); Ferritin 229.8 ng/ml (8-252)
[2020-12-19 16:39] LABS: Folate 5.9 NG/ML (5.38-24.0); Vitamin B12 493 PG/ML (211-911)
[2020-12-19 17:34] LABS: Sedimentation Rate-Westergren 112 MM/HR (0-20)
[2020-12-19] MEDS ORDERED: IRON SUCROSE 100 MG/5 ML VIAL IV ONE (19:21)
[2020-12-20] MEDS: ACETYLCYSTEINE 20% 800 MG/4 ML VIAL RESP TX SCH ×3 (00:33→15:26)
[2020-12-20] MEDS: ALBUTEROL/IPRATROPIUM 3 ML NEB RESP TX SCH ×4 (00:33→19:03)
[2020-12-20 05:12] LABS: Basophils % 0.3 % (0.0-0.8); Eosinophils # 0.3 10*3/uL (0.0-0.87); Eosinophils % 3.4 % (0.00-10.9); Hematocrit 24.8 VOL% (35.7-47.0); Hemoglobin 7.4 GM/DL (12.0-16.0); Immature Granulocytes % 1.3 %; Lymphocytes % 13.1 % (21.3-54.2); Mean Corpuscular HGB Conc 29.8 GM/DL (32-36); Mean Corpuscular Volume 90.5 FL (87-102); Mean Platelet Volume 9.5 FL (9.6-12.0); Monocytes % 13.6 % (1.7-12.7); Neutrophils % 68.3 % (38.7-73.9); Platelet Count 241 T/CUMM (130-400); Red Blood Count 2.74 MC/CUMM (3.8-5.5); Red Cell Distribution Width 15.9 % (9.3-17.3); White Blood Count 7.7 T/CUMM (4-12)
[2020-12-20 05:30] LABS: Calcium 7.5 MG/DL (8.5-10.1); Potassium 4.4 MMOL/L (3.5-5.1)
[2020-12-20] MEDS: LEVOTHYROXINE 100 MCG TABLET PO SCH (06:39)
[2020-12-20] MEDS ORDERED: SODIUM CHLORIDE 0.9% 1,000 ML IV PRN (07:49)
[2020-12-20] MEDS: INSULIN LISPRO 100 UNIT/ML SUBCUT SCH ×4 (09:28→22:08)
[2020-12-20] MEDS: PANTOPRAZOLE 40 MG VIAL IV SCH (09:28)
[2020-12-20] MEDS: METOPROLOL TARTRATE 25 MG TABLET PO SCH ×2 (09:29→22:07)
[2020-12-20] MEDS: APIXABAN 2.5 MG TABLET PO SCH ×2 (09:29→22:07)
[2020-12-20] MEDS: ATORVASTATIN 40 MG TABLET PO SCH (09:29)
[2020-12-20] MEDS: ISOSORBIDE DINITRATE 10 MG TABLET PO SCH ×3 (09:29→22:07)
[2020-12-20] MEDS: SEVELAMER CARBONATE 800 MG TABLET PO SCH ×3 (09:29→16:27)
[2020-12-20] MEDS: AMIODARONE 200 MG TABLET PO SCH ×2 (09:29→22:08)
[2020-12-20] MEDS: ASPIRIN CHEW 81 MG TABLET PO SCH (09:29)
[2020-12-20] MEDS: lisinopriL 5 MG TABLET PO SCH (09:29)
[2020-12-20] MEDS: METOCLOPRAMIDE 5 MG TABLET PO SCH ×2 (09:30→22:08)
[2020-12-20] MEDS: ESCITALOPRAM 10 MG TABLET PO SCH (09:30)
[2020-12-20] MEDS: SKIN HEALING OINT (AQUAPHOR) 50 GM TUBE TOP SCH (09:30)
[2020-12-20] MEDS: amLODIPine 10 MG TABLET PO SCH (09:30)
[2020-12-20] MEDS: GABAPENTIN 100 MG CAPSULE PO SCH ×2 (09:30→22:07)
[2020-12-20] MEDS: MEROPENEM 500 MG in SODIUM CHLORIDE 0.9% 100 ML IV SCH (12:47)
[2020-12-21] MEDS: ALBUTEROL/IPRATROPIUM 3 ML NEB RESP TX SCH ×4 (00:20→20:30)
[2020-12-21] MEDS: ACETYLCYSTEINE 20% 800 MG/4 ML VIAL RESP TX SCH ×3 (00:20→14:45)
[2020-12-21 05:43] LABS: Basophils % 0.4 % (0.0-0.8); Eosinophils # 0.3 10*3/uL (0.0-0.87); Eosinophils % 3.3 % (0.00-10.9); Hematocrit 29.6 VOL% (35.7-47.0); Hemoglobin 8.9 GM/DL (12.0-16.0); Immature Granulocytes % 1.1 %; Lymphocytes # 1.2 10*3/uL (1.4-4.0); Lymphocytes % 12.6 % (21.3-54.2); Mean Corpuscular HGB Conc 30.1 GM/DL (32-36); Mean Corpuscular Volume 91.6 FL (87-102); Mean Platelet Volume 9.8 FL (9.6-12.0); Monocytes % 12.1 % (1.7-12.7); Neutrophils % 70.5 % (38.7-73.9); Platelet Count 249 T/CUMM (130-400); Red Blood Count 3.23 MC/CUMM (3.8-5.5); Red Cell Distribution Width 15.4 % (9.3-17.3); White Blood Count 9.1 T/CUMM (4-12)
[2020-12-21 05:46] LABS: Potassium 4.5 MMOL/L (3.5-5.1)
[2020-12-21] MEDS: INSULIN LISPRO 100 UNIT/ML SUBCUT SCH ×3 (08:28→17:48)
[2020-12-21] MEDS ORDERED: AMIODARONE 200 MG TABLET PO SCH (09:00)
[2020-12-21] MEDS: amLODIPine 10 MG TABLET PO SCH (09:07)
[2020-12-21] MEDS: SEVELAMER CARBONATE 800 MG TABLET PO SCH ×3 (09:07→17:48)
[2020-12-21] MEDS: GABAPENTIN 100 MG CAPSULE PO SCH (09:07)
[2020-12-21] MEDS: ATORVASTATIN 40 MG TABLET PO SCH (09:08)
[2020-12-21] MEDS: ASPIRIN CHEW 81 MG TABLET PO SCH (09:08)
[2020-12-21] MEDS: METOPROLOL TARTRATE 25 MG TABLET PO SCH (09:08)
[2020-12-21] MEDS: LEVOTHYROXINE 100 MCG TABLET PO SCH (09:08)
[2020-12-21] MEDS: ESCITALOPRAM 10 MG TABLET PO SCH (09:08)
[2020-12-21] MEDS: ISOSORBIDE DINITRATE 10 MG TABLET PO SCH ×2 (09:08→17:47)
[2020-12-21] MEDS: METOCLOPRAMIDE 5 MG TABLET PO SCH (09:09)
[2020-12-21] MEDS: lisinopriL 5 MG TABLET PO SCH (09:09)
[2020-12-21] MEDS: APIXABAN 2.5 MG TABLET PO SCH (09:09)
[2020-12-21] MEDS: SKIN HEALING OINT (AQUAPHOR) 50 GM TUBE TOP SCH (09:11)
[2020-12-21] MEDS: MEROPENEM 500 MG in SODIUM CHLORIDE 0.9% 100 ML IV SCH (12:22)
[2020-12-21] MEDS: PANTOPRAZOLE 40 MG VIAL IV SCH (14:55)
[2020-12-21 16:35] VITALS: BP 134/75
== END 2020-12-21 19:30 | DRG 121 ==
LOC: EDUNIT# → EDBD → N.ED 15:47 → SUATTDRO 18:17 → N.TELES 18:17 → N.CC 12-10 12:21 → N.TELES 12-16 13:09
PROVIDERS: ADMIT Internal Medicine; ATTEND Internal Medicine

== ENCOUNTER 2020-12-30 06:30 | Inpatient (IN) ==
[2020-12-30 07:15] LABS: Basophils % 0.4 % (0.0-0.8); Eosinophils # 0.4 10*3/uL (0.0-0.87); Eosinophils % 5.9 % (0.00-10.9); Hematocrit 32.3 VOL% (35.7-47.0); Hemoglobin 9.8 GM/DL (12.0-16.0); Immature Granulocytes % 0.4 %; Immature Granulocytes Absolute 0.03 #; Lymphocytes # 1.4 10*3/uL (1.4-4.0); Lymphocytes % 20.3 % (21.3-54.2); Mean Corpuscular HGB Conc 30.3 GM/DL (32-36); Mean Corpuscular Volume 90.2 FL (87-102); Mean Platelet Volume 9.4 FL (9.6-12.0); Monocytes % 9.8 % (1.7-12.7); Neutrophils % 63.2 % (38.7-73.9); Platelet Count 311 T/CUMM (130-400); Red Blood Count 3.58 MC/CUMM (3.8-5.5); Red Cell Distribution Width 14.7 % (9.3-17.3); White Blood Count 6.9 T/CUMM (4-12)
[2020-12-30 07:37] LABS: Albumin 2.3 G/DL (3.4-5.0); Bilirubin,Total 0.4 MG/DL (0.2-1.0); Calcium 8.4 MG/DL (8.5-10.1); Osmolality,Calculated 276.1 MOS/KG (273-304); Potassium 4.1 MMOL/L (3.5-5.1); Total Protein 8.1 G/DL (6.4-8.2)
[2020-12-30] MEDS ORDERED: GLUCAGON 1 MG VIAL IM PRN (11:13)
[2020-12-30] MEDS ORDERED: ZALEPLON 5 MG CAPSULE PO PRN (11:13)
[2020-12-30] MEDS ORDERED: DEXTROSE 50% 25 GM/50 ML VIAL IV PRN (11:13)
[2020-12-30] MEDS ORDERED: MORPHINE 4 MG/1 ML VIAL IV PRN (11:23)
[2020-12-30] MEDS: cefTRIAXone 1,000 MG in SYRINGE 1 EACH IV SCH (13:51)
[2020-12-30] MEDS: INSULIN REGULAR 100 UNIT/ML SUBCUT SCH ×2 (15:53→20:13)
[2020-12-31 05:09] LABS: Basophils % 0.6 % (0.0-0.8); Eosinophils # 0.3 10*3/uL (0.0-0.87); Eosinophils % 5.3 % (0.00-10.9); Hematocrit 26.1 VOL% (35.7-47.0); Hemoglobin 8.2 GM/DL (12.0-16.0); Immature Granulocytes % 0.5 %; Immature Granulocytes Absolute 0.03 #; Lymphocytes # 1.1 10*3/uL (1.4-4.0); Lymphocytes % 16.8 % (21.3-54.2); Mean Corpuscular HGB Conc 31.4 GM/DL (32-36); Mean Corpuscular Volume 88.2 FL (87-102); Mean Platelet Volume 9.3 FL (9.6-12.0); Neutrophils % 64.8 % (38.7-73.9); Platelet Count 254 T/CUMM (130-400); Red Blood Count 2.96 MC/CUMM (3.8-5.5); Red Cell Distribution Width 14.6 % (9.3-17.3); White Blood Count 6.4 T/CUMM (4-12)
[2020-12-31 05:45] LABS: Calcium 8.3 MG/DL (8.5-10.1); Potassium 3.8 MMOL/L (3.5-5.1); Risk Ratio 1.89; Thyroid Stimulating Hormone 5.85 uIU/ml (0.358-3.74)
[2020-12-31] MEDS: INSULIN REGULAR 100 UNIT/ML SUBCUT SCH ×4 (07:20→20:42)
[2020-12-31] MEDS: PANTOPRAZOLE 40 MG TABLET PO SCH (08:31)
[2020-12-31] MEDS ORDERED: HEPARIN 10,000 UNIT/10 ML VIAL IV SCH (12:00)
[2020-12-31] MEDS: cefTRIAXone 1,000 MG in SYRINGE 1 EACH IV SCH (14:23)
[2020-12-31] MEDS: ONDANSETRON 4 MG/2 ML VIAL IV PRN (19:53)
[2021-01-01 05:47] LABS: Basophils % 0.6 % (0.0-0.8); Eosinophils # 0.3 10*3/uL (0.0-0.87); Eosinophils % 4.6 % (0.00-10.9); Hematocrit 29.5 VOL% (35.7-47.0); Hemoglobin 9.2 GM/DL (12.0-16.0); Immature Granulocytes % 0.7 %; Immature Granulocytes Absolute 0.04 #; Mean Corpuscular HGB Conc 31.2 GM/DL (32-36); Mean Corpuscular Volume 88.6 FL (87-102); Mean Platelet Volume 9.2 FL (9.6-12.0); Monocytes % 10.2 % (1.7-12.7); Neutrophils % 64.9 % (38.7-73.9); Platelet Count 288 T/CUMM (130-400); Red Blood Count 3.33 MC/CUMM (3.8-5.5); Red Cell Distribution Width 14.6 % (9.3-17.3); White Blood Count 5.4 T/CUMM (4-12)
[2021-01-01 06:10] LABS: Calcium 8.4 MG/DL (8.5-10.1); Osmolality,Calculated 269.1 MOS/KG (273-304); Potassium 3.6 MMOL/L (3.5-5.1)
[2021-01-01] MEDS: INSULIN REGULAR 100 UNIT/ML SUBCUT SCH ×3 (08:36→16:39)
[2021-01-01] MEDS: PANTOPRAZOLE 40 MG TABLET PO SCH (08:37)
[2021-01-01] MEDS: cefTRIAXone 1,000 MG in SYRINGE 1 EACH IV SCH (11:01)
[2021-01-01] MEDS: ONDANSETRON 4 MG/2 ML VIAL IV PRN (11:05)
[2021-01-01 16:04] VITALS: BP 175/72
== END 2021-01-01 17:48 | DRG 203 ==
LOC: EDBD → EDUNIT# → N.ED 06:30 → SUATTDRO 11:13 → N.EDINP 11:13 → N.5E 12:53
PROVIDERS: ADMIT Internal Medicine Nephrology; ATTEND Internal Medicine

== ENCOUNTER 2021-07-15 11:49 | Inpatient (IN) ==
[2021-07-15 12:42] LABS: Basophils % 0.2 % (0.0-0.8); Eosinophils % 0.2 % (0.00-10.9); Hematocrit 29.8 VOL% (35.7-47.0); Hemoglobin 9.6 GM/DL (12.0-16.0); Immature Granulocytes Absolute 0.05 #; Lymphocytes # 0.3 10*3/uL (1.4-4.0); Lymphocytes % 6.6 % (21.3-54.2); Mean Corpuscular HGB Conc 32.2 GM/DL (32-36); Mean Corpuscular Volume 97.4 FL (87-102); Monocytes % 3.4 % (1.7-12.7); Neutrophils % 88.6 % (38.7-73.9); Platelet Count 196 T/CUMM (130-400); Red Blood Count 3.06 MC/CUMM (3.8-5.5); Red Cell Distribution Width 15.9 % (9.3-17.3)
[2021-07-15 12:54] LABS: PT Patient Result 10.9 SECS (10.5-12.0)
[2021-07-15 13:57] LABS: Alanine Aminotransferase 32 U/L (13-56); Albumin 2.7 G/DL (3.4-5.0); Alkaline Phosphatase 84 U/L (45-117); Aspartate Amino Transferase 26 U/L (0-37); Bilirubin,Total < 0.39 MG/DL (0.20-1.00); Blood Urea Nitrogen 72 MG/DL (7-18); Calcium 8.8 MG/DL (8.5-10.1); Carbon Dioxide 24 MMOL/L (21-32); Estimated Glom Filtration Rate 6 ML/MIN; Ferritin 1777.8 ng/mL (8-252); Glucose 83 MG/DL (74-106); Osmolality,Calculated 283.5 MOS/KG (273-304); Potassium 4.7 MMOL/L (3.5-5.1); Sodium 132 MMOL/L (136-145); Total Protein 7.3 G/DL (6.4-8.2)
[2021-07-15] MEDS ORDERED: GLUCAGON 1 MG VIAL IM PRN (14:57)
[2021-07-15] MEDS ORDERED: DEXTROSE 50% 25 GM/50 ML VIAL IV PRN (14:57)
[2021-07-15] MEDS ORDERED: AZITHROMYCIN INJ 500 MG in SODIUM CHLORIDE 0.9% 250 ML IV ONE (14:57)
[2021-07-15] MEDS ORDERED: HEPARIN 5,000 UNIT/1 ML VIAL SUBCUT SCH (15:00)
[2021-07-15] MEDS: FAMOTIDINE 20 MG TABLET PO SCH (15:40)
[2021-07-15] MEDS: HEPARIN 5,000 UNIT/1 ML VIAL SUBCUT SCH (16:08)
[2021-07-15] MEDS ORDERED: VANCOMYCIN INJ 500 MG in SODIUM CHLORIDE 0.9% 250 ML IV PRN (16:42)
[2021-07-15] MEDS: INSULIN LISPRO 100 UNIT/ML SUBCUT SCH ×2 (18:02→21:14)
[2021-07-15] MEDS: ONDANSETRON 4 MG/2 ML VIAL IV PRN (18:11)
[2021-07-15] MEDS: ACETAMINOPHEN 325 MG TABLET PO PRN (18:12)
[2021-07-15] MEDS: GABAPENTIN 100 MG CAPSULE PO SCH (18:12)
[2021-07-15] MEDS: SEVELAMER CARBONATE 800 MG TABLET PO SCH ×2 (18:13→22:10)
[2021-07-15] MEDS: METOCLOPRAMIDE 5 MG TABLET PO SCH (18:14)
[2021-07-15] MEDS: METOPROLOL TARTRATE 25 MG TABLET PO SCH (18:14)
[2021-07-15] MEDS: ISOSORBIDE DINITRATE 10 MG TABLET PO SCH ×2 (18:14→22:10)
[2021-07-15] MEDS: AMIODARONE 200 MG TABLET PO SCH (18:14)
[2021-07-15] MEDS: ESCITALOPRAM 10 MG TABLET PO SCH (18:14)
[2021-07-15] MEDS: CEFEPIME 1,000 MG in SODIUM CHLORIDE 0.9% 100 ML IV SCH (18:30)
[2021-07-15] MEDS ORDERED: VANCOMYCIN INJ 1,750 MG in SODIUM CHLORIDE 0.9% 500 ML IV ONE (21:00)
[2021-07-15] MEDS: ASCORBIC ACID 500 MG TABLET PO SCH (22:10)
[2021-07-16] MEDS: HEPARIN 5,000 UNIT/1 ML VIAL SUBCUT SCH ×2 (00:15→08:21)
[2021-07-16] MEDS: ACETAMINOPHEN 325 MG TABLET PO PRN ×3 (02:44→21:22)
[2021-07-16 03:44] LABS: Hematocrit 29.9 VOL% (35.7-47.0); Hemoglobin 9.3 GM/DL (12.0-16.0); Immature Granulocytes Absolute 0.04 #; Lymphocytes # 0.4 10*3/uL (1.4-4.0); Lymphocytes % 8.7 % (21.3-54.2); Mean Corpuscular HGB Conc 31.1 GM/DL (32-36); Mean Platelet Volume 9.7 FL (9.6-12.0); Monocytes % 3.2 % (1.7-12.7); Neutrophils % 87.1 % (38.7-73.9); Platelet Count 169 T/CUMM (130-400); Red Blood Count 2.96 MC/CUMM (3.8-5.5); Red Cell Distribution Width 15.8 % (9.3-17.3)
[2021-07-16 04:12] LABS: Calcium 8.4 MG/DL (8.5-10.1); Ferritin 1813.7 ng/mL (8-252); Osmolality,Calculated 283.8 MOS/KG (273-304); Potassium 5.3 MMOL/L (3.5-5.1)
[2021-07-16] MEDS: ONDANSETRON 4 MG/2 ML VIAL IV PRN ×2 (04:43→09:06)
[2021-07-16] MEDS: amLODIPine 10 MG TABLET PO SCH (06:20)
[2021-07-16] MEDS: AMIODARONE 200 MG TABLET PO SCH ×2 (06:20→17:55)
[2021-07-16] MEDS: LEVOTHYROXINE 100 MCG TABLET PO SCH (06:20)
[2021-07-16] MEDS: METOCLOPRAMIDE 5 MG TABLET PO SCH ×2 (06:20→16:20)
[2021-07-16] MEDS: ISOSORBIDE DINITRATE 10 MG TABLET PO SCH ×3 (06:20→21:23)
[2021-07-16] MEDS: GABAPENTIN 100 MG CAPSULE PO SCH ×2 (06:20→16:21)
[2021-07-16] MEDS: ASPIRIN CHEW 81 MG TABLET PO SCH (06:20)
[2021-07-16] MEDS: SEVELAMER CARBONATE 800 MG TABLET PO SCH ×3 (06:20→21:22)
[2021-07-16] MEDS: METOPROLOL TARTRATE 25 MG TABLET PO SCH ×2 (06:58→16:20)
[2021-07-16] MEDS: AZITHROMYCIN 250 MG TABLET PO SCH (08:19)
[2021-07-16] MEDS: ZINC GLUCONATE 50 MG TABLET PO SCH (08:19)
[2021-07-16] MEDS: ASCORBIC ACID 500 MG TABLET PO SCH ×2 (08:19→21:22)
[2021-07-16] MEDS: CHOLECALCIFEROL 1,000 UNIT TABLET PO SCH (08:19)
[2021-07-16] MEDS: buPROPion SR 150 MG TABLET PO SCH (08:19)
[2021-07-16] MEDS: ATORVASTATIN 40 MG TABLET PO SCH (08:20)
[2021-07-16] MEDS: DEXAMETHASONE 4 MG/1 ML VIAL IV SCH (08:20)
[2021-07-16] MEDS: INSULIN LISPRO 100 UNIT/ML SUBCUT SCH ×4 (08:43→21:45)
[2021-07-16] MEDS ORDERED: PROMETHAZINE INJ 25 MG in SODIUM CHLORIDE 0.9% 50 ML IV PRN (08:54)
[2021-07-16] MEDS ORDERED: EPOETIN ALFA-EPBX 2,000 UNIT/ML VIAL IV PRN (08:57)
[2021-07-16] MEDS: BISACODYL 5 MG TABLET PO PRN (09:06)
[2021-07-16] MEDS: MORPHINE 2 MG/1 ML SYRINGE IV PRN (16:18)
[2021-07-16] MEDS: CEFEPIME 1,000 MG in SODIUM CHLORIDE 0.9% 100 ML IV SCH (16:19)
[2021-07-16] MEDS: FAMOTIDINE 20 MG TABLET PO SCH (16:20)
[2021-07-16] MEDS: ESCITALOPRAM 10 MG TABLET PO SCH (16:22)
[2021-07-16] MEDS: APIXABAN 2.5 MG TABLET PO SCH (21:20)
[2021-07-17] MEDS: MORPHINE 2 MG/1 ML SYRINGE IV PRN ×2 (01:57→16:20)
[2021-07-17 04:29] LABS: Hematocrit 29.3 VOL% (35.7-47.0); Hemoglobin 9.1 GM/DL (12.0-16.0); Immature Granulocytes % 1.1 %; Immature Granulocytes Absolute 0.05 #; Lymphocytes # 0.4 10*3/uL (1.4-4.0); Lymphocytes % 7.6 % (21.3-54.2); Mean Corpuscular HGB Conc 31.1 GM/DL (32-36); Mean Corpuscular Volume 99.7 FL (87-102); Mean Platelet Volume 9.4 FL (9.6-12.0); Neutrophils % 86.3 % (38.7-73.9); Platelet Count 194 T/CUMM (130-400); Red Blood Count 2.94 MC/CUMM (3.8-5.5); Red Cell Distribution Width 15.5 % (9.3-17.3); White Blood Count 4.6 T/CUMM (4-12)
[2021-07-17 04:54] LABS: Calcium 8.2 MG/DL (8.5-10.1); Osmolality,Calculated 283.1 MOS/KG (273-304); Potassium 4.7 MMOL/L (3.5-5.1)
[2021-07-17] MEDS: AMIODARONE 200 MG TABLET PO SCH ×2 (06:00→16:18)
[2021-07-17] MEDS: METOPROLOL TARTRATE 25 MG TABLET PO SCH ×2 (06:00→16:18)
[2021-07-17] MEDS: ASPIRIN CHEW 81 MG TABLET PO SCH (06:00)
[2021-07-17] MEDS: METOCLOPRAMIDE 5 MG TABLET PO SCH ×2 (06:00→16:17)
[2021-07-17] MEDS: amLODIPine 10 MG TABLET PO SCH (06:00)
[2021-07-17] MEDS: GABAPENTIN 100 MG CAPSULE PO SCH ×2 (06:00→16:18)
[2021-07-17] MEDS: SEVELAMER CARBONATE 800 MG TABLET PO SCH ×3 (06:00→21:52)
[2021-07-17] MEDS: LEVOTHYROXINE 100 MCG TABLET PO SCH (06:00)
[2021-07-17] MEDS: ISOSORBIDE DINITRATE 10 MG TABLET PO SCH ×3 (06:00→21:52)
[2021-07-17] MEDS: AZITHROMYCIN 250 MG TABLET PO SCH (08:30)
[2021-07-17] MEDS: BISACODYL 5 MG TABLET PO PRN (08:30)
[2021-07-17] MEDS: buPROPion SR 150 MG TABLET PO SCH (08:30)
[2021-07-17] MEDS: ZINC GLUCONATE 50 MG TABLET PO SCH (08:30)
[2021-07-17] MEDS: INSULIN LISPRO 100 UNIT/ML SUBCUT SCH ×4 (08:31→21:52)
[2021-07-17] MEDS: ASCORBIC ACID 500 MG TABLET PO SCH ×2 (08:31→21:52)
[2021-07-17] MEDS: APIXABAN 2.5 MG TABLET PO SCH ×2 (08:33→21:52)
[2021-07-17] MEDS: ONDANSETRON 4 MG/2 ML VIAL IV PRN (08:35)
[2021-07-17] MEDS: DEXAMETHASONE 4 MG/1 ML VIAL IV SCH (08:39)
[2021-07-17] MEDS: ACETAMINOPHEN 325 MG TABLET PO PRN ×2 (08:40→21:52)
[2021-07-17] MEDS: ATORVASTATIN 40 MG TABLET PO SCH (08:40)
[2021-07-17] MEDS: CHOLECALCIFEROL 1,000 UNIT TABLET PO SCH (08:40)
[2021-07-17] MEDS: guaiFENesin/DM ER 600-30 MG TABLET PO PRN (08:52)
[2021-07-17] MEDS ORDERED: LEVOFLOXACIN INJ 500 MG/100 ML PREMIX IV ONE (13:00)
[2021-07-17] MEDS: FAMOTIDINE 20 MG TABLET PO SCH (14:24)
[2021-07-17] MEDS: ESCITALOPRAM 10 MG TABLET PO SCH (16:18)
[2021-07-18 04:39] LABS: Hematocrit 30.2 VOL% (35.7-47.0); Hemoglobin 9.3 GM/DL (12.0-16.0); Immature Granulocytes % 1.2 %; Immature Granulocytes Absolute 0.06 #; Lymphocytes # 0.3 10*3/uL (1.4-4.0); Lymphocytes % 5.4 % (21.3-54.2); Mean Corpuscular HGB Conc 30.8 GM/DL (32-36); Mean Corpuscular Volume 100.3 FL (87-102); Mean Platelet Volume 9.5 FL (9.6-12.0); Monocytes % 3.6 % (1.7-12.7); Neutrophils % 89.8 % (38.7-73.9); Platelet Count 198 T/CUMM (130-400); Red Blood Count 3.01 MC/CUMM (3.8-5.5); Red Cell Distribution Width 15.3 % (9.3-17.3); White Blood Count 5.2 T/CUMM (4-12)
[2021-07-18 05:02] LABS: Calcium 8.3 MG/DL (8.5-10.1); Potassium 4.8 MMOL/L (3.5-5.1)
[2021-07-18] MEDS: amLODIPine 10 MG TABLET PO SCH (06:03)
[2021-07-18] MEDS: METOCLOPRAMIDE 5 MG TABLET PO SCH ×2 (06:03→17:45)
[2021-07-18] MEDS: SEVELAMER CARBONATE 800 MG TABLET PO SCH ×3 (06:03→20:48)
[2021-07-18] MEDS: ISOSORBIDE DINITRATE 10 MG TABLET PO SCH ×3 (06:03→21:41)
[2021-07-18] MEDS: AMIODARONE 200 MG TABLET PO SCH ×2 (06:03→17:44)
[2021-07-18] MEDS: GABAPENTIN 100 MG CAPSULE PO SCH (06:03)
[2021-07-18] MEDS: LEVOTHYROXINE 100 MCG TABLET PO SCH (06:03)
[2021-07-18] MEDS: METOPROLOL TARTRATE 25 MG TABLET PO SCH ×2 (06:03→17:44)
[2021-07-18] MEDS: ASPIRIN CHEW 81 MG TABLET PO SCH (06:03)
[2021-07-18] MEDS: INSULIN LISPRO 100 UNIT/ML SUBCUT SCH ×4 (07:15→20:47)
[2021-07-18] MEDS: ATORVASTATIN 40 MG TABLET PO SCH (08:51)
[2021-07-18] MEDS: buPROPion SR 150 MG TABLET PO SCH (08:51)
[2021-07-18] MEDS: DEXAMETHASONE 4 MG/1 ML VIAL IV SCH (08:51)
[2021-07-18] MEDS: ASCORBIC ACID 500 MG TABLET PO SCH ×2 (08:51→20:48)
[2021-07-18] MEDS: CHOLECALCIFEROL 1,000 UNIT TABLET PO SCH (08:51)
[2021-07-18] MEDS: ZINC GLUCONATE 50 MG TABLET PO SCH (08:51)
[2021-07-18] MEDS: AZITHROMYCIN 250 MG TABLET PO SCH (08:51)
[2021-07-18] MEDS: APIXABAN 2.5 MG TABLET PO SCH ×2 (08:51→20:46)
[2021-07-18] MEDS: FAMOTIDINE 20 MG TABLET PO SCH (15:53)
[2021-07-18] MEDS ORDERED: DEXTROSE 50% 25 GM/50 ML VIAL IV PRN (16:39)
[2021-07-18] MEDS: ESCITALOPRAM 10 MG TABLET PO SCH (17:44)
[2021-07-19] MEDS: ACETAMINOPHEN 325 MG TABLET PO PRN (02:49)
[2021-07-19] MEDS: ASPIRIN CHEW 81 MG TABLET PO SCH (06:31)
[2021-07-19] MEDS: METOPROLOL TARTRATE 25 MG TABLET PO SCH ×2 (06:32→18:15)
[2021-07-19] MEDS: amLODIPine 10 MG TABLET PO SCH (06:32)
[2021-07-19] MEDS: AMIODARONE 200 MG TABLET PO SCH ×2 (06:32→18:14)
[2021-07-19] MEDS: LEVOTHYROXINE 100 MCG TABLET PO SCH (06:33)
[2021-07-19] MEDS: SEVELAMER CARBONATE 800 MG TABLET PO SCH ×3 (06:33→21:35)
[2021-07-19] MEDS: METOCLOPRAMIDE 5 MG TABLET PO SCH ×2 (06:33→18:15)
[2021-07-19] MEDS: ISOSORBIDE DINITRATE 10 MG TABLET PO SCH ×3 (06:35→21:36)
[2021-07-19 07:38] LABS: Eosinophils % 0.2 % (0.00-10.9); Hematocrit 28.1 VOL% (35.7-47.0); Hemoglobin 8.7 GM/DL (12.0-16.0); Immature Granulocytes % 1.5 %; Lymphocytes # 0.3 10*3/uL (1.4-4.0); Mean Corpuscular Volume 99.6 FL (87-102); Mean Platelet Volume 9.1 FL (9.6-12.0); Monocytes % 3.4 % (1.7-12.7); Neutrophils % 89.9 % (38.7-73.9); Platelet Count 197 T/CUMM (130-400); Red Blood Count 2.82 MC/CUMM (3.8-5.5); White Blood Count 6.6 T/CUMM (4-12)
[2021-07-19 08:07] LABS: Calcium 8.7 MG/DL (8.5-10.1); Osmolality,Calculated 281.4 MOS/KG (273-304); Potassium 4.8 MMOL/L (3.5-5.1)
[2021-07-19] MEDS: INSULIN LISPRO 100 UNIT/ML SUBCUT SCH ×4 (08:22→21:35)
[2021-07-19] MEDS: DEXAMETHASONE 4 MG/1 ML VIAL IV SCH (08:45)
[2021-07-19] MEDS: CHOLECALCIFEROL 1,000 UNIT TABLET PO SCH (08:46)
[2021-07-19] MEDS: ASCORBIC ACID 500 MG TABLET PO SCH ×2 (08:46→21:35)
[2021-07-19] MEDS: APIXABAN 2.5 MG TABLET PO SCH ×2 (08:46→21:36)
[2021-07-19] MEDS: ATORVASTATIN 40 MG TABLET PO SCH (08:46)
[2021-07-19] MEDS: buPROPion SR 150 MG TABLET PO SCH (08:50)
[2021-07-19] MEDS: ZINC GLUCONATE 50 MG TABLET PO SCH (08:51)
[2021-07-19] MEDS: AZITHROMYCIN 250 MG TABLET PO SCH (08:51)
[2021-07-19] MEDS: LEVOFLOXACIN INJ 250 MG/50 ML PREMIX IV SCH (13:18)
[2021-07-19] MEDS: FAMOTIDINE 20 MG TABLET PO SCH (15:28)
[2021-07-19] MEDS: ESCITALOPRAM 10 MG TABLET PO SCH (18:15)
[2021-07-19] MEDS: MELATONIN 3 MG TABLET PO PRN (23:47)
[2021-07-20] MEDS: guaiFENesin/DM ER 600-30 MG TABLET PO PRN ×2 (03:43→21:20)
[2021-07-20 05:23] LABS: Ferritin 3369.4 ng/mL (8-252)
[2021-07-20] MEDS: ASPIRIN CHEW 81 MG TABLET PO SCH (05:34)
[2021-07-20] MEDS: ISOSORBIDE DINITRATE 10 MG TABLET PO SCH ×3 (05:36→21:20)
[2021-07-20] MEDS: SEVELAMER CARBONATE 800 MG TABLET PO SCH ×3 (05:36→21:20)
[2021-07-20] MEDS: METOPROLOL TARTRATE 25 MG TABLET PO SCH ×2 (05:36→17:40)
[2021-07-20] MEDS: AMIODARONE 200 MG TABLET PO SCH ×2 (05:36→17:40)
[2021-07-20] MEDS: METOCLOPRAMIDE 5 MG TABLET PO SCH (05:36)
[2021-07-20] MEDS: amLODIPine 10 MG TABLET PO SCH (05:36)
[2021-07-20] MEDS: LEVOTHYROXINE 100 MCG TABLET PO SCH (05:37)
[2021-07-20] MEDS: INSULIN LISPRO 100 UNIT/ML SUBCUT SCH ×4 (08:32→21:19)
[2021-07-20 10:17] LABS: Hepatitis B Core IgM Quant 0.08 Index; Hepatitis B Surface Ag Quant < 0.10 Index; Hepatitis B Surface Ag Result Non-Reactive (NonReactive); Hepatitis C Virus Ab Quant > 11.00 Index
[2021-07-20 10:48] LABS: Hepatitis C Virus Ab Result Reactive (NonReactive)
[2021-07-20 11:30] LABS: ABG Base Excess 2.1 MMOL/L (-2.5-2.5); ABG HCO3 26.2 MMOL/L (20-26); ABG Oxygen Saturation 91.1 % (95-100); ABG PCO2 38.7 MM HG (35-48); ABG PH 7.448 (7.35-7.45); ABG PO2 58.3 MM HG (80-95); ABG TCO2 27.4 MMOL/L (23-27); Allen Test Positive
[2021-07-20 11:47] LABS: Eosinophils % 0.3 % (0.00-10.9); Hematocrit 30.8 VOL% (35.7-47.0); Hemoglobin 9.9 GM/DL (12.0-16.0); Immature Granulocytes Absolute 0.08 #; Lymphocytes # 0.2 10*3/uL (1.4-4.0); Lymphocytes % 2.9 % (21.3-54.2); Mean Corpuscular HGB Conc 32.1 GM/DL (32-36); Mean Corpuscular Volume 97.2 FL (87-102); Mean Platelet Volume 8.8 FL (9.6-12.0); Monocytes % 2.1 % (1.7-12.7); Neutrophils % 93.7 % (38.7-73.9); Platelet Count 196 T/CUMM (130-400); Red Blood Count 3.17 MC/CUMM (3.8-5.5); Red Cell Distribution Width 15.1 % (9.3-17.3); White Blood Count 7.9 T/CUMM (4-12)
[2021-07-20 11:48] LABS: Alanine Aminotransferase 16 U/L (13-56); Albumin 2.4 G/DL (3.4-5.0); Alkaline Phosphatase 61 U/L (45-117); Aspartate Amino Transferase 25 U/L (0-37); Bilirubin,Indirect 0.3 MG/DL (0.0-1.0); Bilirubin,Total < 0.39 MG/DL (0.20-1.00); Blood Urea Nitrogen 66 MG/DL (7-18); Calcium 9.5 MG/DL (8.5-10.1); Carbon Dioxide 21 MMOL/L (21-32); Estimated Glom Filtration Rate 8 ML/MIN; Glucose 61 MG/DL (74-106); Osmolality,Calculated 278.7 MOS/KG (273-304); Potassium 5.7 MMOL/L (3.5-5.1); Sodium 131 MMOL/L (136-145); Total Protein 7.3 G/DL (6.4-8.2)
[2021-07-20 12:23] LABS: Anisocytosis 1+; Band Neutrophils 12 % (0-10); Eosinophils 2 % (0-10); Lymphocytes 1 % (20-55); Platelet Estimate Normal; Segmented Neutrophils 81 % (50-85); Total Cells Counted 100
[2021-07-20 12:24] LABS: Macrocytosis 1+; Tear Drop Cells Few
[2021-07-20] MEDS: DEXAMETHASONE 4 MG/1 ML VIAL IV SCH (12:38)
[2021-07-20] MEDS: APIXABAN 2.5 MG TABLET PO SCH ×2 (12:38→21:19)
[2021-07-20] MEDS: ATORVASTATIN 40 MG TABLET PO SCH (12:38)
[2021-07-20] MEDS: CHOLECALCIFEROL 1,000 UNIT TABLET PO SCH (12:38)
[2021-07-20] MEDS: ASCORBIC ACID 500 MG TABLET PO SCH ×2 (12:38→21:20)
[2021-07-20] MEDS: buPROPion SR 150 MG TABLET PO SCH (12:39)
[2021-07-20] MEDS: ZINC GLUCONATE 50 MG TABLET PO SCH (12:39)
[2021-07-20] MEDS ORDERED: ALBUTEROL 2.5 MG/3 ML NEB RESP TX PRN (14:27)
[2021-07-20] MEDS: FAMOTIDINE 20 MG TABLET PO SCH (14:55)
[2021-07-20] MEDS: ONDANSETRON 4 MG/2 ML VIAL IV PRN (16:05)
[2021-07-20] MEDS: ESCITALOPRAM 10 MG TABLET PO SCH (17:40)
[2021-07-20] MEDS: MELATONIN 3 MG TABLET PO PRN (21:21)
[2021-07-21] MEDS: SEVELAMER CARBONATE 800 MG TABLET PO SCH ×3 (05:45→20:53)
[2021-07-21] MEDS: METOPROLOL TARTRATE 25 MG TABLET PO SCH ×2 (05:45→17:35)
[2021-07-21] MEDS: AMIODARONE 200 MG TABLET PO SCH ×2 (05:45→17:35)
[2021-07-21] MEDS: ASPIRIN CHEW 81 MG TABLET PO SCH (05:45)
[2021-07-21] MEDS: amLODIPine 10 MG TABLET PO SCH (05:45)
[2021-07-21] MEDS: ISOSORBIDE DINITRATE 10 MG TABLET PO SCH ×3 (05:45→21:06)
[2021-07-21 06:11] LABS: Hematocrit 28.7 VOL% (35.7-47.0); Hemoglobin 9.1 GM/DL (12.0-16.0); Immature Granulocytes % 0.8 %; Immature Granulocytes Absolute 0.05 #; Lymphocytes # 0.2 10*3/uL (1.4-4.0); Lymphocytes % 2.6 % (21.3-54.2); Mean Corpuscular HGB Conc 31.7 GM/DL (32-36); Mean Corpuscular Volume 98.6 FL (87-102); Mean Platelet Volume 9.7 FL (9.6-12.0); Monocytes % 1.8 % (1.7-12.7); Neutrophils % 94.8 % (38.7-73.9); Platelet Count 201 T/CUMM (130-400); Red Blood Count 2.91 MC/CUMM (3.8-5.5); Red Cell Distribution Width 15.1 % (9.3-17.3); White Blood Count 6.6 T/CUMM (4-12)
[2021-07-21 06:17] LABS: ABG Base Excess 1.5 MMOL/L (-2.5-2.5); ABG HCO3 26.3 MMOL/L (20-26); ABG Oxygen Saturation 87.2 % (95-100); ABG PCO2 42.6 MM HG (35-48); ABG PH 7.409 (7.35-7.45); ABG PO2 53.3 MM HG (80-95); ABG TCO2 27.6 MMOL/L (23-27); Allen Test Positive; Pt O2 Delivery Device Other
[2021-07-21 06:32] LABS: Albumin 2.1 G/DL (3.4-5.0); Bilirubin,Direct 0.14 MG/DL (0.0-0.20); Bilirubin,Indirect 0.9 MG/DL (0.0-1.0); Calcium 9.3 MG/DL (8.5-10.1); Potassium 5.1 MMOL/L (3.5-5.1); Total Protein 6.9 G/DL (6.4-8.2)
[2021-07-21] MEDS ORDERED: MORPHINE 2 MG/1 ML SYRINGE ONE (06:33)
[2021-07-21] MEDS ORDERED: ETOMIDATE 20 MG/10 ML VIAL IV ONE ×2 (06:42→06:45)
[2021-07-21] MEDS ORDERED: VECURONIUM 10 MG VIAL IV ONE ×2 (06:42→06:45)
[2021-07-21] MEDS: LEVOTHYROXINE 100 MCG TABLET PO SCH (06:50)
[2021-07-21 07:01] LABS: Band Neutrophils 1 % (0-10); Lymphocytes 1 % (20-55); Segmented Neutrophils 93 % (50-85); Total Cells Counted 100
[2021-07-21 07:02] LABS: Anisocytosis 1+; Macrocytosis Slight; Platelet Estimate Normal; Tear Drop Cells Few
[2021-07-21 07:47] LABS: ABG Base Excess -0.3 MMOL/L (-2.5-2.5); ABG HCO3 26.6 MMOL/L (20-26); ABG Oxygen Saturation 91.9 % (95-100); ABG PCO2 54.1 MM HG (35-48); ABG PH 7.309 (7.35-7.45); ABG PO2 69.6 MM HG (80-95); ABG TCO2 28.2 MMOL/L (23-27)
[2021-07-21] MEDS: INSULIN LISPRO 100 UNIT/ML SUBCUT SCH ×4 (07:47→20:18)
[2021-07-21] MEDS: ZINC GLUCONATE 50 MG TABLET PO SCH (08:06)
[2021-07-21] MEDS: ASCORBIC ACID 500 MG TABLET PO SCH ×2 (08:06→20:53)
[2021-07-21] MEDS: APIXABAN 2.5 MG TABLET PO SCH ×2 (08:06→20:53)
[2021-07-21] MEDS: buPROPion SR 150 MG TABLET PO SCH (08:06)
[2021-07-21] MEDS: ATORVASTATIN 40 MG TABLET PO SCH (08:06)
[2021-07-21] MEDS: CHOLECALCIFEROL 1,000 UNIT TABLET PO SCH (08:06)
[2021-07-21] MEDS: DEXAMETHASONE 4 MG/1 ML VIAL IV SCH (08:08)
[2021-07-21] MEDS ORDERED: FUROSEMIDE 40 MG/4 ML VIAL IV ONE (11:08)
[2021-07-21] MEDS: methylPREDNISolone SOD SUC 40 MG/1 ML VIAL IV SCH ×3 (12:43→23:20)
[2021-07-21] MEDS: LEVOFLOXACIN INJ 250 MG/50 ML PREMIX IV SCH (13:13)
[2021-07-21] MEDS: ALBUTEROL INHALER 18 GM INH SCH ×3 (13:31→20:17)
[2021-07-21] MEDS: FAMOTIDINE 20 MG/2 ML VIAL IV SCH (15:13)
[2021-07-21] MEDS: ESCITALOPRAM 10 MG TABLET PO SCH (17:35)
[2021-07-22] MEDS: ALBUTEROL INHALER 18 GM INH SCH ×4 (00:10→18:34)
[2021-07-22 04:13] LABS: ABG Base Excess -3.1 MMOL/L (-2.5-2.5); ABG HCO3 23.1 MMOL/L (20-26); ABG Oxygen Saturation 97.4 % (95-100); ABG PCO2 46.2 MM HG (35-48); ABG PH 7.316 (7.35-7.45); ABG PO2 103.7 MM HG (80-95); ABG TCO2 24.5 MMOL/L (23-27)
[2021-07-22 04:28] LABS: Hematocrit 30.8 VOL% (35.7-47.0); Hemoglobin 9.2 GM/DL (12.0-16.0); Immature Granulocytes % 0.8 %; Immature Granulocytes Absolute 0.06 #; Lymphocytes # 0.1 10*3/uL (1.4-4.0); Lymphocytes % 1.5 % (21.3-54.2); Mean Corpuscular HGB Conc 29.9 GM/DL (32-36); Mean Platelet Volume 9.5 FL (9.6-12.0); Monocytes % 1.7 % (1.7-12.7); Platelet Count 212 T/CUMM (130-400); Red Blood Count 3.08 MC/CUMM (3.8-5.5); Red Cell Distribution Width 14.9 % (9.3-17.3); White Blood Count 7.2 T/CUMM (4-12)
[2021-07-22 04:53] LABS: Band Neutrophils 1 % (0-10); Lymphocytes 3 % (20-55); Segmented Neutrophils 95 % (50-85); Total Cells Counted 100
[2021-07-22 04:54] LABS: Macrocytosis Slight; Platelet Estimate Normal; Polychromasia Slight
[2021-07-22] MEDS: ASPIRIN CHEW 81 MG TABLET PO SCH (05:01)
[2021-07-22] MEDS: METOPROLOL TARTRATE 25 MG TABLET PO SCH ×2 (05:01→16:00)
[2021-07-22] MEDS: LEVOTHYROXINE 100 MCG TABLET PO SCH (05:01)
[2021-07-22] MEDS: AMIODARONE 200 MG TABLET PO SCH ×2 (05:01→16:00)
[2021-07-22] MEDS: SEVELAMER CARBONATE 800 MG TABLET PO SCH ×3 (05:01→21:03)
[2021-07-22] MEDS: amLODIPine 10 MG TABLET PO SCH (05:01)
[2021-07-22] MEDS: ISOSORBIDE DINITRATE 10 MG TABLET PO SCH ×3 (05:02→21:03)
[2021-07-22] MEDS: methylPREDNISolone SOD SUC 40 MG/1 ML VIAL IV SCH ×3 (05:02→17:02)
[2021-07-22 05:04] LABS: Albumin 2.2 G/DL (3.4-5.0); Bilirubin,Total 0.5 MG/DL (0.20-1.00); Calcium 9.3 MG/DL (8.5-10.1); Osmolality,Calculated 283.5 MOS/KG (273-304); Total Protein 7.2 G/DL (6.4-8.2)
[2021-07-22 05:19] LABS: Calcium 9.2 MG/DL (8.5-10.1); Ferritin 5978.2 ng/mL (8-252); Free T4 (Free Thyroxine) 1.37 NG/DL (0.76-1.46); Osmolality,Calculated 286.4 MOS/KG (273-304)
[2021-07-22 05:51] LABS: Potassium 6.1 MMOL/L (3.5-5.1)
[2021-07-22] MEDS: INSULIN LISPRO 100 UNIT/ML SUBCUT SCH ×3 (07:38→18:34)
[2021-07-22] MEDS: ZINC GLUCONATE 50 MG TABLET PO SCH (08:29)
[2021-07-22] MEDS: APIXABAN 2.5 MG TABLET PO SCH ×2 (08:29→21:03)
[2021-07-22] MEDS: ASCORBIC ACID 500 MG TABLET PO SCH ×2 (08:29→21:03)
[2021-07-22] MEDS: buPROPion SR 150 MG TABLET PO SCH (08:29)
[2021-07-22] MEDS: ATORVASTATIN 40 MG TABLET PO SCH (08:29)
[2021-07-22] MEDS: CHOLECALCIFEROL 1,000 UNIT TABLET PO SCH (08:29)
[2021-07-22] MEDS: AZITHROMYCIN INJ 500 MG in SODIUM CHLORIDE 0.9% 250 ML IV SCH (09:40)
[2021-07-22] MEDS: FAMOTIDINE 20 MG/2 ML VIAL IV SCH (14:03)
[2021-07-22] MEDS ORDERED: TOCILIZUMAB 800 MG in SODIUM CHLORIDE 0.9% 100 ML IV ONE (15:00)
[2021-07-22] MEDS: ESCITALOPRAM 10 MG TABLET PO SCH (16:00)
[2021-07-23] MEDS: INSULIN LISPRO 100 UNIT/ML SUBCUT SCH ×4 (00:10→18:14)
[2021-07-23] MEDS: ALBUTEROL INHALER 18 GM INH SCH ×4 (00:11→19:02)
[2021-07-23] MEDS: methylPREDNISolone SOD SUC 40 MG/1 ML VIAL IV SCH ×4 (00:24→18:15)
[2021-07-23 04:38] LABS: ABG Base Excess -0.1 MMOL/L (-2.5-2.5); ABG HCO3 24.4 MMOL/L (20-26); ABG Oxygen Saturation 98.1 % (95-100); ABG PCO2 42.6 MM HG (35-48); ABG PH 7.379 (7.35-7.45); ABG TCO2 23.1 MMOL/L (23-27)
[2021-07-23] MEDS: LEVOTHYROXINE 100 MCG TABLET PO SCH (05:46)
[2021-07-23] MEDS: SEVELAMER CARBONATE 800 MG TABLET PO SCH ×2 (05:46→21:56)
[2021-07-23] MEDS: METOPROLOL TARTRATE 25 MG TABLET PO SCH ×2 (05:46→21:56)
[2021-07-23] MEDS: AMIODARONE 200 MG TABLET PO SCH ×2 (05:46→22:04)
[2021-07-23] MEDS: ISOSORBIDE DINITRATE 10 MG TABLET PO SCH ×2 (05:46→21:55)
[2021-07-23] MEDS: amLODIPine 10 MG TABLET PO SCH (05:46)
[2021-07-23] MEDS: ASPIRIN CHEW 81 MG TABLET PO SCH (05:46)
[2021-07-23 06:44] LABS: Hematocrit 29.6 VOL% (35.7-47.0); Hemoglobin 9.1 GM/DL (12.0-16.0); Immature Granulocytes % 0.9 %; Immature Granulocytes Absolute 0.08 #; Lymphocytes # 0.1 10*3/uL (1.4-4.0); Lymphocytes % 1.1 % (21.3-54.2); Mean Corpuscular HGB Conc 30.7 GM/DL (32-36); Mean Corpuscular Volume 99.3 FL (87-102); Mean Platelet Volume 9.4 FL (9.6-12.0); Monocytes % 2.3 % (1.7-12.7); Neutrophils % 95.7 % (38.7-73.9); Platelet Count 206 T/CUMM (130-400); Red Blood Count 2.98 MC/CUMM (3.8-5.5); Red Cell Distribution Width 14.4 % (9.3-17.3); White Blood Count 9.3 T/CUMM (4-12)
[2021-07-23 07:10] LABS: Calcium 9.2 MG/DL (8.5-10.1); Osmolality,Calculated 282.5 MOS/KG (273-304); Potassium 4.3 MMOL/L (3.5-5.1)
[2021-07-23 07:14] LABS: Band Neutrophils 5 % (0-10); Lymphocytes 1 % (20-55); Platelet Estimate Normal; Segmented Neutrophils 93 % (50-85); Total Cells Counted 100
[2021-07-23 07:15] LABS: Anisocytosis 2+; Macrocytosis Slight; Polychromasia Slight; Tear Drop Cells Few
[2021-07-23] MEDS: ATORVASTATIN 40 MG TABLET PO SCH (08:37)
[2021-07-23] MEDS: ASCORBIC ACID 500 MG TABLET PO SCH ×2 (08:37→22:03)
[2021-07-23] MEDS: APIXABAN 2.5 MG TABLET PO SCH ×2 (08:37→21:57)
[2021-07-23] MEDS: CHOLECALCIFEROL 1,000 UNIT TABLET PO SCH (08:38)
[2021-07-23] MEDS: ZINC GLUCONATE 50 MG TABLET PO SCH (08:38)
[2021-07-23] MEDS: buPROPion SR 150 MG TABLET PO SCH (08:38)
[2021-07-23] MEDS: AZITHROMYCIN INJ 500 MG in SODIUM CHLORIDE 0.9% 250 ML IV SCH (08:39)
[2021-07-23] MEDS: NYSTATIN 500,000 UNIT/5 ML UDCUP SWISH/SWAL SCH ×4 (13:37→21:58)
[2021-07-23] MEDS: LEVOFLOXACIN INJ 250 MG/50 ML PREMIX IV SCH (13:45)
[2021-07-23] MEDS ORDERED: SODIUM CHLORIDE 1 GM TABLET PO SCH (15:00)
[2021-07-23] MEDS ORDERED: SODIUM BICARBONATE 50 MEQ/50 ML VIAL IV ONE (16:53)
[2021-07-23] MEDS ORDERED: CALCIUM CHLORIDE 1,000 MG/10 ML SYRINGE IV ONE (16:54)
[2021-07-23] MEDS ORDERED: SODIUM BICARB INJ 150 MEQ in STERILE WATER INJ 1,000 ML IV SCH (17:00)
[2021-07-23] MEDS ORDERED: CALCIUM GLUCONATE 1,000 MG in SODIUM CHLORIDE 0.9% 100 ML IV ONE (17:00)
[2021-07-23] MEDS: FAMOTIDINE 20 MG/2 ML VIAL IV SCH (18:14)
[2021-07-23] MEDS: guaiFENesin/DM ER 600-30 MG TABLET PO PRN (21:55)
[2021-07-23] MEDS: ESCITALOPRAM 10 MG TABLET PO SCH (21:56)
[2021-07-24] MEDS: INSULIN LISPRO 100 UNIT/ML SUBCUT SCH ×4 (00:55→18:15)
[2021-07-24] MEDS: methylPREDNISolone SOD SUC 40 MG/1 ML VIAL IV SCH ×4 (01:48→12:06)
[2021-07-24] MEDS: ALBUTEROL INHALER 18 GM INH SCH ×4 (01:53→18:16)
[2021-07-24 03:30] LABS: ABG Base Excess 1.5 MMOL/L (-2.5-2.5); ABG HCO3 25.7 MMOL/L (20-26); ABG Oxygen Saturation 97.5 % (95-100); ABG PH 7.453 (7.35-7.45); ABG PO2 96.7 MM HG (80-95); ABG TCO2 22.7 MMOL/L (23-27)
[2021-07-24] MEDS ORDERED: hydrALAZINE 20 MG/1 ML VIAL IV ONE (03:40)
[2021-07-24 05:03] LABS: Hematocrit 33.7 VOL% (35.7-47.0); Hemoglobin 10.3 GM/DL (12.0-16.0); Immature Granulocytes % 1.1 %; Immature Granulocytes Absolute 0.14 #; Lymphocytes # 0.2 10*3/uL (1.4-4.0); Lymphocytes % 1.6 % (21.3-54.2); Mean Corpuscular HGB Conc 30.6 GM/DL (32-36); Mean Corpuscular Volume 98.3 FL (87-102); Mean Platelet Volume 9.3 FL (9.6-12.0); Monocytes % 2.4 % (1.7-12.7); Neutrophils % 94.9 % (38.7-73.9); Platelet Count 215 T/CUMM (130-400); Red Blood Count 3.43 MC/CUMM (3.8-5.5); Red Cell Distribution Width 14.4 % (9.3-17.3); White Blood Count 12.4 T/CUMM (4-12)
[2021-07-24 05:22] LABS: Lymphocytes 1 % (20-55); Segmented Neutrophils 98 % (50-85); Total Cells Counted 100
[2021-07-24 05:23] LABS: Hypochromia Slight; Macrocytosis Slight; Ovalocytes Slight
[2021-07-24 05:24] LABS: Platelet Estimate Normal
[2021-07-24 05:37] LABS: Calcium 9.2 MG/DL (8.5-10.1); Osmolality,Calculated 288.2 MOS/KG (273-304); Potassium 4.9 MMOL/L (3.5-5.1)
[2021-07-24] MEDS: LEVOTHYROXINE 100 MCG TABLET PO SCH (06:50)
[2021-07-24] MEDS: ACETAMINOPHEN 325 MG TABLET PO PRN ×3 (06:50→22:30)
[2021-07-24] MEDS: ISOSORBIDE DINITRATE 10 MG TABLET PO SCH ×3 (08:07→21:17)
[2021-07-24] MEDS: ASPIRIN CHEW 81 MG TABLET PO SCH (08:07)
[2021-07-24] MEDS: AMIODARONE 200 MG TABLET PO SCH ×2 (08:07→21:16)
[2021-07-24] MEDS: APIXABAN 2.5 MG TABLET PO SCH ×2 (08:07→21:16)
[2021-07-24] MEDS: ASCORBIC ACID 500 MG TABLET PO SCH ×2 (08:08→21:17)
[2021-07-24] MEDS: ZINC GLUCONATE 50 MG TABLET PO SCH (08:08)
[2021-07-24] MEDS: amLODIPine 10 MG TABLET PO SCH (08:08)
[2021-07-24] MEDS: ATORVASTATIN 40 MG TABLET PO SCH (08:08)
[2021-07-24] MEDS: CHOLECALCIFEROL 1,000 UNIT TABLET PO SCH (08:08)
[2021-07-24] MEDS: buPROPion SR 150 MG TABLET PO SCH (08:08)
[2021-07-24] MEDS: METOPROLOL TARTRATE 25 MG TABLET PO SCH ×2 (08:08→21:17)
[2021-07-24] MEDS: SEVELAMER CARBONATE 800 MG TABLET PO SCH ×3 (08:08→21:17)
[2021-07-24] MEDS: NYSTATIN 500,000 UNIT/5 ML UDCUP SWISH/SWAL SCH ×4 (08:08→21:18)
[2021-07-24] MEDS: AZITHROMYCIN INJ 500 MG in SODIUM CHLORIDE 0.9% 250 ML IV SCH (08:33)
[2021-07-24] MEDS: FAMOTIDINE 20 MG/2 ML VIAL IV SCH (15:23)
[2021-07-24] MEDS: ESCITALOPRAM 10 MG TABLET PO SCH (21:17)
[2021-07-25] MEDS: INSULIN LISPRO 100 UNIT/ML SUBCUT SCH ×5 (00:40→23:46)
[2021-07-25] MEDS: methylPREDNISolone SOD SUC 40 MG/1 ML VIAL IV SCH ×5 (00:41→23:41)
[2021-07-25] MEDS: ALBUTEROL INHALER 18 GM INH SCH ×4 (01:00→18:32)
[2021-07-25 04:50] LABS: ABG Base Excess 0.3 MMOL/L (-2.5-2.5); ABG HCO3 24.1 MMOL/L (20-26); ABG Oxygen Saturation 98.3 % (95-100); ABG PCO2 35.6 MM HG (35-48); ABG PH 7.448 (7.35-7.45); ABG PO2 119.9 MM HG (80-95); ABG TCO2 25.2 MMOL/L (23-27)
[2021-07-25] MEDS: ACETAMINOPHEN 325 MG TABLET PO PRN ×2 (06:12→09:41)
[2021-07-25] MEDS: LEVOTHYROXINE 100 MCG TABLET PO SCH (06:12)
[2021-07-25 06:46] LABS: Basophils % 0.1 % (0.0-0.8); Hematocrit 30.4 VOL% (35.7-47.0); Hemoglobin 9.5 GM/DL (12.0-16.0); Immature Granulocytes % 0.6 %; Immature Granulocytes Absolute 0.07 #; Lymphocytes # 0.3 10*3/uL (1.4-4.0); Mean Corpuscular HGB Conc 31.3 GM/DL (32-36); Mean Corpuscular Volume 96.8 FL (87-102); Mean Platelet Volume 9.9 FL (9.6-12.0); Monocytes % 7.1 % (1.7-12.7); Neutrophils % 89.2 % (38.7-73.9); Platelet Count 122 T/CUMM (130-400); Red Blood Count 3.14 MC/CUMM (3.8-5.5); White Blood Count 11.5 T/CUMM (4-12)
[2021-07-25 07:05] LABS: Eosinophils 1 % (0-10); Hypochromia 1+; Lymphocytes 4 % (20-55); Segmented Neutrophils 91 % (50-85); Total Cells Counted 100
[2021-07-25 07:06] LABS: Macrocytosis 1+; Platelet Estimate Adequate
[2021-07-25 07:23] LABS: Calcium 8.7 MG/DL (8.5-10.1); Osmolality,Calculated 290.5 MOS/KG (273-304); Potassium 4.3 MMOL/L (3.5-5.1)
[2021-07-25] MEDS: AMIODARONE 200 MG TABLET PO SCH ×2 (08:37→20:00)
[2021-07-25] MEDS: SEVELAMER CARBONATE 800 MG TABLET PO SCH ×2 (08:37→15:16)
[2021-07-25] MEDS: ZINC GLUCONATE 50 MG TABLET PO SCH (08:37)
[2021-07-25] MEDS: ASCORBIC ACID 500 MG TABLET PO SCH ×2 (08:37→20:00)
[2021-07-25] MEDS: METOPROLOL TARTRATE 25 MG TABLET PO SCH ×2 (08:37→20:00)
[2021-07-25] MEDS: ISOSORBIDE DINITRATE 10 MG TABLET PO SCH ×3 (08:37→20:00)
[2021-07-25] MEDS: APIXABAN 2.5 MG TABLET PO SCH ×2 (08:37→20:00)
[2021-07-25] MEDS: CHOLECALCIFEROL 1,000 UNIT TABLET PO SCH (08:37)
[2021-07-25] MEDS: ASPIRIN CHEW 81 MG TABLET PO SCH (08:37)
[2021-07-25] MEDS: buPROPion SR 150 MG TABLET PO SCH (08:37)
[2021-07-25] MEDS: amLODIPine 10 MG TABLET PO SCH (08:37)
[2021-07-25] MEDS: ATORVASTATIN 40 MG TABLET PO SCH (08:38)
[2021-07-25] MEDS: NYSTATIN 500,000 UNIT/5 ML UDCUP SWISH/SWAL SCH ×4 (08:38→20:00)
[2021-07-25] MEDS: AZITHROMYCIN INJ 500 MG in SODIUM CHLORIDE 0.9% 250 ML IV SCH (08:45)
[2021-07-25] MEDS: INSULIN GLARGINE 100 UNIT/ML SUBCUT SCH (09:24)
[2021-07-25] MEDS: LEVOFLOXACIN INJ 250 MG/50 ML PREMIX IV SCH (12:28)
[2021-07-25] MEDS: FAMOTIDINE 20 MG/2 ML VIAL IV SCH (15:13)
[2021-07-25] MEDS: ESCITALOPRAM 10 MG TABLET PO SCH (20:00)
[2021-07-26] MEDS: ALBUTEROL INHALER 18 GM INH SCH ×5 (01:57→20:44)
[2021-07-26 04:46] LABS: ABG Base Excess -3.1 MMOL/L (-2.5-2.5); ABG HCO3 21.7 MMOL/L (20-26); ABG Oxygen Saturation 93.5 % (95-100); ABG PCO2 40.1 MM HG (35-48); ABG PH 7.351 (7.35-7.45); ABG PO2 73.6 MM HG (80-95); ABG TCO2 20.4 MMOL/L (23-27)
[2021-07-26 05:32] LABS: Basophils % 0.1 % (0.0-0.8); Eosinophils % 0.1 % (0.00-10.9); Hematocrit 30.7 VOL% (35.7-47.0); Hemoglobin 9.7 GM/DL (12.0-16.0); Immature Granulocytes % 0.8 %; Immature Granulocytes Absolute 0.09 #; Lymphocytes # 0.2 10*3/uL (1.4-4.0); Lymphocytes % 2.2 % (21.3-54.2); Mean Corpuscular HGB Conc 31.6 GM/DL (32-36); Mean Corpuscular Volume 96.2 FL (87-102); Mean Platelet Volume 10.9 FL (9.6-12.0); Monocytes % 4.5 % (1.7-12.7); NRBC # 0.02 10*3/uL; Neutrophils % 92.3 % (38.7-73.9); Platelet Count 100 T/CUMM (130-400); Red Blood Count 3.19 MC/CUMM (3.8-5.5); Red Cell Distribution Width 13.6 % (9.3-17.3)
[2021-07-26 05:38] LABS: Calcium 8.9 MG/DL (8.5-10.1); Osmolality,Calculated 291.4 MOS/KG (273-304); Potassium 5.3 MMOL/L (3.5-5.1)
[2021-07-26] MEDS: INSULIN LISPRO 100 UNIT/ML SUBCUT SCH ×3 (05:55→17:26)
[2021-07-26] MEDS: methylPREDNISolone SOD SUC 40 MG/1 ML VIAL IV SCH ×3 (05:56→17:16)
[2021-07-26] MEDS: LEVOTHYROXINE 100 MCG TABLET PO SCH (05:56)
[2021-07-26 06:00] LABS: Lymphocytes 5 % (20-55); Platelet Estimate Adequate; Segmented Neutrophils 93 % (50-85); Total Cells Counted 100
[2021-07-26] MEDS: ZINC GLUCONATE 50 MG TABLET PO SCH (08:18)
[2021-07-26] MEDS: buPROPion SR 150 MG TABLET PO SCH (08:18)
[2021-07-26] MEDS: METOPROLOL TARTRATE 25 MG TABLET PO SCH ×2 (08:19→20:39)
[2021-07-26] MEDS: ASPIRIN CHEW 81 MG TABLET PO SCH (08:19)
[2021-07-26] MEDS: ISOSORBIDE DINITRATE 10 MG TABLET PO SCH ×3 (08:19→20:39)
[2021-07-26] MEDS: CHOLECALCIFEROL 1,000 UNIT TABLET PO SCH (08:19)
[2021-07-26] MEDS: amLODIPine 10 MG TABLET PO SCH (08:19)
[2021-07-26] MEDS: APIXABAN 2.5 MG TABLET PO SCH ×2 (08:19→20:39)
[2021-07-26] MEDS: ATORVASTATIN 40 MG TABLET PO SCH (08:19)
[2021-07-26] MEDS: ASCORBIC ACID 500 MG TABLET PO SCH ×2 (08:19→20:40)
[2021-07-26] MEDS: INSULIN GLARGINE 100 UNIT/ML SUBCUT SCH (08:20)
[2021-07-26] MEDS: AMIODARONE 200 MG TABLET PO SCH ×2 (08:20→20:49)
[2021-07-26] MEDS: SEVELAMER CARBONATE POWDER 2.4 GM PACK PO SCH ×3 (08:20→17:16)
[2021-07-26] MEDS: NYSTATIN 500,000 UNIT/5 ML UDCUP SWISH/SWAL SCH ×4 (08:20→20:39)
[2021-07-26] MEDS: AZITHROMYCIN INJ 500 MG in SODIUM CHLORIDE 0.9% 250 ML IV SCH (08:52)
[2021-07-26] MEDS ORDERED: INSULIN GLARGINE 100 UNIT/ML SUBCUT ONE (12:28)
[2021-07-26] MEDS: FAMOTIDINE 20 MG/2 ML VIAL IV SCH (14:08)
[2021-07-26] MEDS ORDERED: HEPARIN 10,000 UNIT/10 ML VIAL IV ONE (16:00)
[2021-07-26] MEDS: ESCITALOPRAM 10 MG TABLET PO SCH (20:40)
[2021-07-26] MEDS: SODIUM BICARBONATE 650 MG TABLET PO SCH (20:48)
[2021-07-27] MEDS: ACETAMINOPHEN 325 MG TABLET PO PRN ×2 (00:15→12:10)
[2021-07-27] MEDS: methylPREDNISolone SOD SUC 40 MG/1 ML VIAL IV SCH ×5 (00:25→21:38)
[2021-07-27] MEDS: INSULIN LISPRO 100 UNIT/ML SUBCUT SCH ×4 (00:35→17:52)
[2021-07-27] MEDS: ALBUTEROL INHALER 18 GM INH SCH ×4 (03:46→20:49)
[2021-07-27 04:52] LABS: ABG Base Excess -0.6 MMOL/L (-2.5-2.5); ABG HCO3 23.9 MMOL/L (20-26); ABG Oxygen Saturation 97.5 % (95-100); ABG PCO2 38.4 MM HG (35-48); ABG PH 7.403 (7.35-7.45); ABG PO2 98.9 MM HG (80-95); ABG TCO2 21.9 MMOL/L (23-27)
[2021-07-27 06:00] LABS: Hematocrit 32.1 VOL% (35.7-47.0); Immature Granulocytes % 0.8 %; Immature Granulocytes Absolute 0.09 #; Lymphocytes # 0.2 10*3/uL (1.4-4.0); Lymphocytes % 1.8 % (21.3-54.2); Mean Corpuscular HGB Conc 31.2 GM/DL (32-36); Mean Corpuscular Volume 97.6 FL (87-102); Mean Platelet Volume 10.8 FL (9.6-12.0); Monocytes % 6.6 % (1.7-12.7); Neutrophils % 90.8 % (38.7-73.9); Platelet Count 111 T/CUMM (130-400); Red Blood Count 3.29 MC/CUMM (3.8-5.5); Red Cell Distribution Width 13.6 % (9.3-17.3); White Blood Count 11.4 T/CUMM (4-12)
[2021-07-27 06:13] LABS: Calcium 8.7 MG/DL (8.5-10.1); Osmolality,Calculated 291.4 MOS/KG (273-304); Potassium 4.7 MMOL/L (3.5-5.1)
[2021-07-27] MEDS: LEVOTHYROXINE 100 MCG TABLET PO SCH (06:20)
[2021-07-27 06:41] LABS: Band Neutrophils 1 % (0-10); Lymphocytes 2 % (20-55); Segmented Neutrophils 91 % (50-85); Total Cells Counted 100
[2021-07-27 06:42] LABS: Hypochromia 1+; Platelet Estimate Decreased
[2021-07-27] MEDS: AZITHROMYCIN INJ 500 MG in SODIUM CHLORIDE 0.9% 250 ML IV SCH (08:56)
[2021-07-27] MEDS: ASCORBIC ACID 500 MG TABLET PO SCH ×2 (08:57→20:43)
[2021-07-27] MEDS: INSULIN GLARGINE 100 UNIT/ML SUBCUT SCH (08:57)
[2021-07-27] MEDS: CHOLECALCIFEROL 1,000 UNIT TABLET PO SCH (08:58)
[2021-07-27] MEDS: buPROPion SR 150 MG TABLET PO SCH (08:58)
[2021-07-27] MEDS: METOPROLOL TARTRATE 25 MG TABLET PO SCH ×2 (08:58→20:44)
[2021-07-27] MEDS: amLODIPine 10 MG TABLET PO SCH (08:58)
[2021-07-27] MEDS: APIXABAN 2.5 MG TABLET PO SCH ×2 (08:58→21:11)
[2021-07-27] MEDS: ASPIRIN CHEW 81 MG TABLET PO SCH (08:58)
[2021-07-27] MEDS: ATORVASTATIN 40 MG TABLET PO SCH (08:58)
[2021-07-27] MEDS: SODIUM BICARBONATE 650 MG TABLET PO SCH ×2 (08:58→21:13)
[2021-07-27] MEDS: NYSTATIN 500,000 UNIT/5 ML UDCUP SWISH/SWAL SCH ×4 (08:58→20:44)
[2021-07-27] MEDS: AMIODARONE 200 MG TABLET PO SCH ×2 (08:58→20:42)
[2021-07-27] MEDS: ISOSORBIDE DINITRATE 10 MG TABLET PO SCH ×3 (08:58→20:43)
[2021-07-27] MEDS: ZINC GLUCONATE 50 MG TABLET PO SCH (09:23)
[2021-07-27] MEDS: SEVELAMER CARBONATE POWDER 2.4 GM PACK PO SCH ×3 (09:23→17:53)
[2021-07-27] MEDS: cefTRIAXone 1,000 MG in SODIUM CHLORIDE 0.9% 100 ML IV SCH (11:33)
[2021-07-27 13:05] LABS: ABG Base Excess -2.7 MMOL/L (-2.5-2.5); ABG HCO3 22.2 MMOL/L (20-26); ABG PCO2 39.5 MM HG (35-48); ABG PH 7.363 (7.35-7.45); ABG PO2 87.9 MM HG (80-95); ABG TCO2 20.2 MMOL/L (23-27)
[2021-07-27] MEDS: FAMOTIDINE 20 MG/2 ML VIAL IV SCH (14:09)
[2021-07-27] MEDS: ESCITALOPRAM 10 MG TABLET PO SCH (20:44)
[2021-07-28] MEDS: INSULIN LISPRO 100 UNIT/ML SUBCUT SCH ×4 (00:45→17:55)
[2021-07-28] MEDS: ALBUTEROL INHALER 18 GM INH SCH ×4 (01:25→18:55)
[2021-07-28 04:43] LABS: Basophils % 0.2 % (0.0-0.8); Hematocrit 29.8 VOL% (35.7-47.0); Hemoglobin 9.7 GM/DL (12.0-16.0); Immature Granulocytes % 0.9 %; Immature Granulocytes Absolute 0.12 #; Lymphocytes # 0.3 10*3/uL (1.4-4.0); Lymphocytes % 2.7 % (21.3-54.2); Mean Corpuscular HGB Conc 32.6 GM/DL (32-36); Mean Corpuscular Volume 95.2 FL (87-102); Mean Platelet Volume 11.2 FL (9.6-12.0); Monocytes % 6.8 % (1.7-12.7); Neutrophils % 89.4 % (38.7-73.9); Platelet Count 132 T/CUMM (130-400); Red Blood Count 3.13 MC/CUMM (3.8-5.5); Red Cell Distribution Width 13.7 % (9.3-17.3); White Blood Count 12.6 T/CUMM (4-12)
[2021-07-28 05:10] LABS: Calcium 8.9 MG/DL (8.5-10.1); Osmolality,Calculated 296.9 MOS/KG (273-304); Potassium 4.7 MMOL/L (3.5-5.1)
[2021-07-28 05:10] LABS: ABG Base Excess -3.7 MMOL/L (-2.5-2.5); ABG HCO3 21.2 MMOL/L (20-26); ABG Oxygen Saturation 97.8 % (95-100); ABG PCO2 37.7 MM HG (35-48); ABG PH 7.368 (7.35-7.45); ABG PO2 117.3 MM HG (80-95); ABG TCO2 22.4 MMOL/L (23-27)
[2021-07-28 05:24] LABS: Ferritin 2158.1 ng/mL (8-252)
[2021-07-28 05:44] LABS: Hypochromia 1+; Lymphocytes 4 % (20-55); Segmented Neutrophils 92 % (50-85); Total Cells Counted 100
[2021-07-28 05:45] LABS: Macrocytosis Slight; Ovalocytes Slight; Platelet Estimate Adequate
[2021-07-28] MEDS: LEVOTHYROXINE 100 MCG TABLET PO SCH (06:45)
[2021-07-28] MEDS: ISOSORBIDE DINITRATE 10 MG TABLET PO SCH ×3 (08:21→21:06)
[2021-07-28] MEDS: INSULIN GLARGINE 100 UNIT/ML SUBCUT SCH (08:21)
[2021-07-28] MEDS: ASPIRIN CHEW 81 MG TABLET PO SCH (08:22)
[2021-07-28] MEDS: CHOLECALCIFEROL 1,000 UNIT TABLET PO SCH (08:22)
[2021-07-28] MEDS: SODIUM BICARBONATE 650 MG TABLET PO SCH ×2 (08:22→21:06)
[2021-07-28] MEDS: METOPROLOL TARTRATE 25 MG TABLET PO SCH ×2 (08:22→21:07)
[2021-07-28] MEDS: ASCORBIC ACID 500 MG TABLET PO SCH ×2 (08:22→21:06)
[2021-07-28] MEDS: APIXABAN 2.5 MG TABLET PO SCH ×2 (08:23→21:07)
[2021-07-28] MEDS: AMIODARONE 200 MG TABLET PO SCH ×2 (08:23→21:06)
[2021-07-28] MEDS: ZINC GLUCONATE 50 MG TABLET PO SCH (08:23)
[2021-07-28] MEDS: ATORVASTATIN 40 MG TABLET PO SCH (08:23)
[2021-07-28] MEDS: NYSTATIN 500,000 UNIT/5 ML UDCUP SWISH/SWAL SCH ×4 (08:23→21:07)
[2021-07-28] MEDS: amLODIPine 10 MG TABLET PO SCH (08:23)
[2021-07-28] MEDS: SEVELAMER CARBONATE POWDER 2.4 GM PACK PO SCH ×3 (08:31→17:55)
[2021-07-28] MEDS: buPROPion 75 MG TABLET PO SCH ×2 (08:32→21:07)
[2021-07-28 10:21] LABS: HIV Antigen/Antibody Result Nonreactive (Nonreactive)
[2021-07-28] MEDS: methylPREDNISolone SOD SUC 40 MG/1 ML VIAL IV SCH (11:07)
[2021-07-28] MEDS: cefTRIAXone 1,000 MG in SODIUM CHLORIDE 0.9% 100 ML IV SCH (11:07)
[2021-07-28] MEDS: FAMOTIDINE 20 MG/2 ML VIAL IV SCH (15:33)
[2021-07-28] MEDS: ESCITALOPRAM 10 MG TABLET PO SCH (21:06)
[2021-07-29] MEDS: methylPREDNISolone SOD SUC 40 MG/1 ML VIAL IV SCH ×3 (01:02→23:13)
[2021-07-29] MEDS: ALBUTEROL INHALER 18 GM INH SCH ×4 (01:03→18:49)
[2021-07-29] MEDS: INSULIN LISPRO 100 UNIT/ML SUBCUT SCH ×5 (01:15→23:14)
[2021-07-29 05:13] LABS: Calcium 8.9 MG/DL (8.5-10.1); Osmolality,Calculated 306.2 MOS/KG (273-304); Potassium 5.1 MMOL/L (3.5-5.1)
[2021-07-29] MEDS: LEVOTHYROXINE 100 MCG TABLET PO SCH (05:30)
[2021-07-29 05:42] LABS: ABG Base Excess -5.5 MMOL/L (-2.5-2.5); ABG HCO3 19.9 MMOL/L (20-26); ABG Oxygen Saturation 98.1 % (95-100); ABG PCO2 37.4 MM HG (35-48); ABG PH 7.334 (7.35-7.45)
[2021-07-29] MEDS: ZINC GLUCONATE 50 MG TABLET PO SCH (08:51)
[2021-07-29] MEDS: APIXABAN 2.5 MG TABLET PO SCH ×2 (08:51→20:39)
[2021-07-29] MEDS: buPROPion 75 MG TABLET PO SCH ×2 (08:51→20:38)
[2021-07-29] MEDS: ISOSORBIDE DINITRATE 10 MG TABLET PO SCH ×3 (08:51→20:39)
[2021-07-29] MEDS: ASPIRIN CHEW 81 MG TABLET PO SCH (08:51)
[2021-07-29] MEDS: ASCORBIC ACID 500 MG TABLET PO SCH ×2 (08:51→20:38)
[2021-07-29] MEDS: SEVELAMER CARBONATE POWDER 2.4 GM PACK PO SCH ×3 (08:51→16:11)
[2021-07-29] MEDS: amLODIPine 10 MG TABLET PO SCH (08:51)
[2021-07-29] MEDS: ATORVASTATIN 40 MG TABLET PO SCH (08:51)
[2021-07-29] MEDS: METOPROLOL TARTRATE 25 MG TABLET PO SCH ×2 (08:51→20:39)
[2021-07-29] MEDS: SODIUM BICARBONATE 650 MG TABLET PO SCH ×2 (08:51→20:38)
[2021-07-29] MEDS: CHOLECALCIFEROL 1,000 UNIT TABLET PO SCH (08:51)
[2021-07-29] MEDS: AMIODARONE 200 MG TABLET PO SCH ×2 (08:52→20:39)
[2021-07-29] MEDS: INSULIN GLARGINE 100 UNIT/ML SUBCUT SCH (08:52)
[2021-07-29] MEDS: NYSTATIN 500,000 UNIT/5 ML UDCUP SWISH/SWAL SCH ×4 (08:52→20:39)
[2021-07-29] MEDS: cefTRIAXone 1,000 MG in SODIUM CHLORIDE 0.9% 100 ML IV SCH (11:32)
[2021-07-29] MEDS: FAMOTIDINE 20 MG/2 ML VIAL IV SCH (15:29)
[2021-07-29] MEDS ORDERED: HEPARIN 10,000 UNIT/10 ML VIAL IV SCH (16:45)
[2021-07-29] MEDS ORDERED: SODIUM CHLORIDE 0.9% 250 ML IV ONE (17:18)
[2021-07-29] MEDS ORDERED: NOREPINEPHRINE 8 MG in SODIUM CHLORIDE 0.9% 242 ML IV PRN (17:18)
[2021-07-29] MEDS ORDERED: NOREPINEPHRINE 4 MG/4 ML VIAL IV ONE (17:27)
[2021-07-29] MEDS: ESCITALOPRAM 10 MG TABLET PO SCH (20:39)
[2021-07-30] MEDS: ALBUTEROL INHALER 18 GM INH SCH ×4 (00:53→18:02)
[2021-07-30 04:24] LABS: Allen Test Positive; Pt O2 Delivery Device Ventilator
[2021-07-30 04:26] LABS: ABG Base Excess -1.8 MMOL/L (-2.5-2.5); ABG HCO3 22.3 MMOL/L (20-26); ABG Oxygen Saturation 97.1 % (95-100); ABG PCO2 35.1 MM HG (35-48); ABG PO2 102.8 MM HG (80-95); ABG TCO2 23.3 MMOL/L (23-27)
[2021-07-30 04:55] LABS: Basophils % 0.1 % (0.0-0.8); Hematocrit 31.8 VOL% (35.7-47.0); Hemoglobin 10.4 GM/DL (12.0-16.0); Immature Granulocytes % 0.7 %; Immature Granulocytes Absolute 0.16 #; Lymphocytes # 0.6 10*3/uL (1.4-4.0); Lymphocytes % 2.6 % (21.3-54.2); Mean Corpuscular HGB Conc 32.7 GM/DL (32-36); Mean Corpuscular Volume 93.8 FL (87-102); Mean Platelet Volume 11.1 FL (9.6-12.0); Monocytes % 8.8 % (1.7-12.7); Neutrophils % 87.8 % (38.7-73.9); Platelet Count 183 T/CUMM (130-400); Red Blood Count 3.39 MC/CUMM (3.8-5.5); Red Cell Distribution Width 13.9 % (9.3-17.3); White Blood Count 22.3 T/CUMM (4-12)
[2021-07-30 05:16] LABS: Albumin 2.4 G/DL (3.4-5.0); Bilirubin,Total 0.8 MG/DL (0.20-1.00); Calcium 8.7 MG/DL (8.5-10.1); Osmolality,Calculated 296.2 MOS/KG (273-304); Potassium 3.8 MMOL/L (3.5-5.1); Total Protein 5.9 G/DL (6.4-8.2)
[2021-07-30 05:16] LABS: Band Neutrophils 1 % (0-10); Lymphocytes 7 % (20-55); Platelet Estimate Normal; Segmented Neutrophils 88 % (50-85); Total Cells Counted 100
[2021-07-30] MEDS: INSULIN LISPRO 100 UNIT/ML SUBCUT SCH ×4 (05:26→23:30)
[2021-07-30] MEDS: LEVOTHYROXINE 100 MCG TABLET PO SCH (05:26)
[2021-07-30] MEDS: NYSTATIN 500,000 UNIT/5 ML UDCUP SWISH/SWAL SCH ×4 (08:49→20:52)
[2021-07-30] MEDS: ZINC GLUCONATE 50 MG TABLET PO SCH (08:49)
[2021-07-30] MEDS: ASCORBIC ACID 500 MG TABLET PO SCH ×2 (08:49→20:53)
[2021-07-30] MEDS: SODIUM BICARBONATE 650 MG TABLET PO SCH ×2 (08:49→20:52)
[2021-07-30] MEDS: CHOLECALCIFEROL 1,000 UNIT TABLET PO SCH (08:49)
[2021-07-30] MEDS: ISOSORBIDE DINITRATE 10 MG TABLET PO SCH ×3 (08:49→20:52)
[2021-07-30] MEDS: METOPROLOL TARTRATE 25 MG TABLET PO SCH ×2 (08:50→20:53)
[2021-07-30] MEDS: SEVELAMER CARBONATE POWDER 2.4 GM PACK PO SCH ×3 (08:50→16:01)
[2021-07-30] MEDS: ASPIRIN CHEW 81 MG TABLET PO SCH (08:50)
[2021-07-30] MEDS: INSULIN GLARGINE 100 UNIT/ML SUBCUT SCH (08:50)
[2021-07-30] MEDS: APIXABAN 2.5 MG TABLET PO SCH ×2 (08:50→20:20)
[2021-07-30] MEDS: FLUCONAZOLE INJ 200 MG/100 ML PREMIX IV SCH (08:50)
[2021-07-30] MEDS: ATORVASTATIN 40 MG TABLET PO SCH (08:50)
[2021-07-30] MEDS: amLODIPine 10 MG TABLET PO SCH (08:50)
[2021-07-30] MEDS: AMIODARONE 200 MG TABLET PO SCH ×2 (08:50→20:53)
[2021-07-30] MEDS: buPROPion 75 MG TABLET PO SCH ×2 (09:03→20:52)
[2021-07-30] MEDS: methylPREDNISolone SOD SUC 40 MG/1 ML VIAL IV SCH ×2 (11:40→23:29)
[2021-07-30] MEDS: cefTRIAXone 1,000 MG in SODIUM CHLORIDE 0.9% 100 ML IV SCH (11:43)
[2021-07-30] MEDS: PANTOPRAZOLE 40 MG TABLET PO SCH ×2 (11:43→21:07)
[2021-07-30] MEDS: FAMOTIDINE 20 MG/2 ML VIAL IV SCH (15:23)
[2021-07-30] MEDS: hydrALAZINE 20 MG/1 ML VIAL IV PRN (18:26)
[2021-07-30] MEDS: ESCITALOPRAM 10 MG TABLET PO SCH (20:53)
[2021-07-31] MEDS: ALBUTEROL INHALER 18 GM INH SCH ×3 (00:25→13:09)
[2021-07-31 03:29] LABS: ABG Base Excess -2.6 MMOL/L (-2.5-2.5); ABG HCO3 21.6 MMOL/L (20-26); ABG Oxygen Saturation 90.4 % (95-100); ABG PCO2 34.8 MM HG (35-48); ABG TCO2 22.6 MMOL/L (23-27)
[2021-07-31] MEDS: LEVOTHYROXINE 100 MCG TABLET PO SCH (05:23)
[2021-07-31] MEDS: INSULIN LISPRO 100 UNIT/ML SUBCUT SCH ×3 (05:23→17:27)
[2021-07-31 05:36] LABS: Basophils % 0.1 % (0.0-0.8); Hemoglobin 9.3 GM/DL (12.0-16.0); Immature Granulocytes % 1.3 %; Immature Granulocytes Absolute 0.19 #; Lymphocytes # 0.3 10*3/uL (1.4-4.0); Lymphocytes % 1.8 % (21.3-54.2); Mean Corpuscular HGB Conc 32.1 GM/DL (32-36); Mean Corpuscular Volume 94.2 FL (87-102); Mean Platelet Volume 11.6 FL (9.6-12.0); Monocytes % 4.6 % (1.7-12.7); Neutrophils % 92.2 % (38.7-73.9); Platelet Count 148 T/CUMM (130-400); Red Blood Count 3.08 MC/CUMM (3.8-5.5); Red Cell Distribution Width 13.8 % (9.3-17.3); White Blood Count 14.5 T/CUMM (4-12)
[2021-07-31 06:02] LABS: Lymphocytes 1 % (20-55); Platelet Estimate Adequate; Segmented Neutrophils 96 % (50-85); Total Cells Counted 100
[2021-07-31 06:03] LABS: Hypochromia 1+; Microcytosis 1+
[2021-07-31 06:05] LABS: Albumin 2.6 G/DL (3.4-5.0); Bilirubin,Total 0.7 MG/DL (0.20-1.00); Calcium 9.5 MG/DL (8.5-10.1); Osmolality,Calculated 306.5 MOS/KG (273-304); Potassium 4.3 MMOL/L (3.5-5.1); Total Protein 5.9 G/DL (6.4-8.2)
[2021-07-31] MEDS: FLUCONAZOLE INJ 200 MG/100 ML PREMIX IV SCH (08:19)
[2021-07-31] MEDS: CHOLECALCIFEROL 1,000 UNIT TABLET PO SCH (08:20)
[2021-07-31] MEDS: buPROPion 75 MG TABLET PO SCH ×2 (08:20→21:48)
[2021-07-31] MEDS: METOPROLOL TARTRATE 25 MG TABLET PO SCH ×2 (08:21→21:46)
[2021-07-31] MEDS: APIXABAN 2.5 MG TABLET PO SCH (08:21)
[2021-07-31] MEDS: SODIUM BICARBONATE 650 MG TABLET PO SCH ×2 (08:21→21:46)
[2021-07-31] MEDS: ATORVASTATIN 40 MG TABLET PO SCH (08:21)
[2021-07-31] MEDS: ASCORBIC ACID 500 MG TABLET PO SCH ×2 (08:22→21:46)
[2021-07-31] MEDS: ISOSORBIDE DINITRATE 10 MG TABLET PO SCH ×3 (08:22→21:46)
[2021-07-31] MEDS: ASPIRIN CHEW 81 MG TABLET PO SCH (08:22)
[2021-07-31] MEDS: amLODIPine 10 MG TABLET PO SCH (08:22)
[2021-07-31] MEDS: ZINC GLUCONATE 50 MG TABLET PO SCH (08:22)
[2021-07-31] MEDS: AMIODARONE 200 MG TABLET PO SCH ×2 (08:22→21:46)
[2021-07-31] MEDS: SEVELAMER CARBONATE POWDER 2.4 GM PACK PO SCH ×3 (08:22→16:02)
[2021-07-31] MEDS: NYSTATIN 500,000 UNIT/5 ML UDCUP SWISH/SWAL SCH ×4 (08:22→21:46)
[2021-07-31] MEDS: INSULIN GLARGINE 100 UNIT/ML SUBCUT SCH (08:22)
[2021-07-31] MEDS: PANTOPRAZOLE 40 MG TABLET PO SCH ×2 (08:22→21:46)
[2021-07-31] MEDS: cefTRIAXone 1,000 MG in SODIUM CHLORIDE 0.9% 100 ML IV SCH (11:27)
[2021-07-31] MEDS: methylPREDNISolone SOD SUC 40 MG/1 ML VIAL IV SCH (11:28)
[2021-07-31] MEDS: ALBUTEROL/IPRATROPIUM 3 ML NEB RESP TX SCH ×3 (15:00→23:51)
[2021-07-31] MEDS: ESCITALOPRAM 10 MG TABLET PO SCH (21:48)
[2021-08-01] MEDS: INSULIN LISPRO 100 UNIT/ML SUBCUT SCH ×4 (01:38→18:37)
[2021-08-01] MEDS: ALBUTEROL/IPRATROPIUM 3 ML NEB RESP TX SCH ×5 (03:28→19:21)
[2021-08-01 03:46] LABS: ABG Base Excess 0.8 MMOL/L (-2.5-2.5); ABG HCO3 25.1 MMOL/L (20-26); ABG Oxygen Saturation 94.3 % (95-100); ABG PCO2 36.9 MM HG (35-48); ABG PH 7.437 (7.35-7.45); ABG PO2 73.7 MM HG (80-95); ABG TCO2 22.8 MMOL/L (23-27)
[2021-08-01 04:02] LABS: Hematocrit 29.3 VOL% (35.7-47.0); Hemoglobin 9.6 GM/DL (12.0-16.0); Immature Granulocytes % 0.7 %; Lymphocytes # 0.4 10*3/uL (1.4-4.0); Lymphocytes % 2.7 % (21.3-54.2); Mean Corpuscular HGB Conc 32.8 GM/DL (32-36); Mean Corpuscular Volume 94.8 FL (87-102); Mean Platelet Volume 11.3 FL (9.6-12.0); Neutrophils % 87.6 % (38.7-73.9); Platelet Count 158 T/CUMM (130-400); Red Blood Count 3.09 MC/CUMM (3.8-5.5); Red Cell Distribution Width 13.9 % (9.3-17.3); White Blood Count 13.6 T/CUMM (4-12)
[2021-08-01 04:24] LABS: Band Neutrophils 1 % (0-10); Eosinophils 1 % (0-10); Hypochromia 1+; Lymphocytes 4 % (20-55); Microcytosis 1+; Platelet Estimate Adequate; Segmented Neutrophils 87 % (50-85); Total Cells Counted 100
[2021-08-01 04:30] LABS: Calcium 8.6 MG/DL (8.5-10.1); Potassium 4.1 MMOL/L (3.5-5.1)
[2021-08-01] MEDS: LEVOTHYROXINE 100 MCG TABLET PO SCH (07:00)
[2021-08-01] MEDS: SEVELAMER CARBONATE POWDER 2.4 GM PACK PO SCH ×3 (08:17→18:37)
[2021-08-01] MEDS: SODIUM BICARBONATE 650 MG TABLET PO SCH (08:17)
[2021-08-01] MEDS: amLODIPine 10 MG TABLET PO SCH (08:17)
[2021-08-01] MEDS: ATORVASTATIN 40 MG TABLET PO SCH (08:17)
[2021-08-01] MEDS: NYSTATIN 500,000 UNIT/5 ML UDCUP SWISH/SWAL SCH ×4 (08:17→21:27)
[2021-08-01] MEDS: METOPROLOL TARTRATE 25 MG TABLET PO SCH ×2 (08:18→21:27)
[2021-08-01] MEDS: ASPIRIN CHEW 81 MG TABLET PO SCH (08:18)
[2021-08-01] MEDS: PANTOPRAZOLE 40 MG TABLET PO SCH ×2 (08:18→21:27)
[2021-08-01] MEDS: CHOLECALCIFEROL 1,000 UNIT TABLET PO SCH (08:18)
[2021-08-01] MEDS: ISOSORBIDE DINITRATE 10 MG TABLET PO SCH ×3 (08:18→21:27)
[2021-08-01] MEDS: ZINC GLUCONATE 50 MG TABLET PO SCH (08:19)
[2021-08-01] MEDS: ASCORBIC ACID 500 MG TABLET PO SCH ×2 (08:19→21:27)
[2021-08-01] MEDS: FLUCONAZOLE INJ 200 MG/100 ML PREMIX IV SCH (08:22)
[2021-08-01] MEDS: AMIODARONE 200 MG TABLET PO SCH ×2 (08:25→21:27)
[2021-08-01] MEDS: LACTULOSE 20 GM/30 ML UDCUP PO SCH ×2 (08:26→21:26)
[2021-08-01] MEDS ORDERED: INSULIN GLARGINE 100 UNIT/ML SUBCUT SCH (09:00)
[2021-08-01] MEDS ORDERED: methylPREDNISolone SOD SUC 40 MG/1 ML VIAL IV SCH (09:00)
[2021-08-01] MEDS: buPROPion 75 MG TABLET PO SCH ×2 (11:04→21:32)
[2021-08-01] MEDS: cefTRIAXone 1,000 MG in SODIUM CHLORIDE 0.9% 100 ML IV SCH (11:04)
[2021-08-01] MEDS: ESCITALOPRAM 10 MG TABLET PO SCH (21:27)
[2021-08-02] MEDS: ALBUTEROL/IPRATROPIUM 3 ML NEB RESP TX SCH ×7 (00:51→23:48)
[2021-08-02] MEDS: INSULIN LISPRO 100 UNIT/ML SUBCUT SCH ×4 (01:30→18:40)
[2021-08-02 06:33] LABS: Basophils % 0.1 % (0.0-0.8); Hematocrit 28.9 VOL% (35.7-47.0); Hemoglobin 9.2 GM/DL (12.0-16.0); Immature Granulocytes % 1.2 %; Immature Granulocytes Absolute 0.19 #; Lymphocytes # 0.6 10*3/uL (1.4-4.0); Lymphocytes % 3.4 % (21.3-54.2); Mean Corpuscular HGB Conc 31.8 GM/DL (32-36); Mean Corpuscular Volume 95.4 FL (87-102); Mean Platelet Volume 11.1 FL (9.6-12.0); Monocytes % 9.4 % (1.7-12.7); Neutrophils % 85.9 % (38.7-73.9); Platelet Count 170 T/CUMM (130-400); Red Blood Count 3.03 MC/CUMM (3.8-5.5); Red Cell Distribution Width 13.9 % (9.3-17.3); White Blood Count 16.4 T/CUMM (4-12)
[2021-08-02 06:55] LABS: Hypochromia 1+; Lymphocytes 2 % (20-55); Microcytosis 1+; Platelet Estimate Adequate; Segmented Neutrophils 84 % (50-85); Total Cells Counted 100
[2021-08-02 06:59] LABS: Albumin 2.6 G/DL (3.4-5.0); Bilirubin,Total 1.6 MG/DL (0.20-1.00); Calcium 9.2 MG/DL (8.5-10.1); Osmolality,Calculated 302.2 MOS/KG (273-304); Potassium 4.6 MMOL/L (3.5-5.1); Thyroid Stimulating Hormone 2.27 uIU/ml (0.358-3.74); Total Protein 5.8 G/DL (6.4-8.2)
[2021-08-02] MEDS: LEVOTHYROXINE 100 MCG TABLET PO SCH (07:00)
[2021-08-02] MEDS: ISOSORBIDE DINITRATE 10 MG TABLET PO SCH ×2 (08:11→14:16)
[2021-08-02] MEDS: METOPROLOL TARTRATE 25 MG TABLET PO SCH (08:12)
[2021-08-02] MEDS: predniSONE 20 MG TABLET PO SCH (08:12)
[2021-08-02] MEDS: AMIODARONE 200 MG TABLET PO SCH (08:12)
[2021-08-02] MEDS: CHOLECALCIFEROL 1,000 UNIT TABLET PO SCH (08:12)
[2021-08-02] MEDS: NYSTATIN 500,000 UNIT/5 ML UDCUP SWISH/SWAL SCH ×3 (08:12→17:12)
[2021-08-02] MEDS: LACTULOSE 20 GM/30 ML UDCUP PO SCH (08:12)
[2021-08-02] MEDS: amLODIPine 10 MG TABLET PO SCH (08:12)
[2021-08-02] MEDS: ATORVASTATIN 40 MG TABLET PO SCH (08:13)
[2021-08-02] MEDS: FLUCONAZOLE INJ 200 MG/100 ML PREMIX IV SCH (08:13)
[2021-08-02] MEDS: buPROPion 75 MG TABLET PO SCH (08:13)
[2021-08-02] MEDS: ZINC GLUCONATE 50 MG TABLET PO SCH (08:13)
[2021-08-02] MEDS: ASPIRIN CHEW 81 MG TABLET PO SCH (08:13)
[2021-08-02] MEDS: PANTOPRAZOLE 40 MG TABLET PO SCH (08:13)
[2021-08-02] MEDS: SEVELAMER CARBONATE POWDER 2.4 GM PACK PO SCH ×3 (08:13→17:12)
[2021-08-02] MEDS: INSULIN GLARGINE 100 UNIT/ML SUBCUT SCH (08:13)
[2021-08-02] MEDS: ASCORBIC ACID 500 MG TABLET PO SCH (08:13)
[2021-08-02] MEDS: cefTRIAXone 1,000 MG in SODIUM CHLORIDE 0.9% 100 ML IV SCH (11:50)
[2021-08-02 17:06] LABS: Herpesvirus 7 IgM Ab by IFA <1:20
[2021-08-03] MEDS: ISOSORBIDE DINITRATE 10 MG TABLET PO SCH ×4 (01:52→21:16)
[2021-08-03] MEDS: LACTULOSE 20 GM/30 ML UDCUP PO SCH ×3 (01:52→21:16)
[2021-08-03] MEDS: AMIODARONE 200 MG TABLET PO SCH ×3 (01:52→21:16)
[2021-08-03] MEDS: ESCITALOPRAM 10 MG TABLET PO SCH ×2 (01:53→21:26)
[2021-08-03] MEDS: METOPROLOL TARTRATE 25 MG TABLET PO SCH ×3 (01:53→21:16)
[2021-08-03] MEDS: ASCORBIC ACID 500 MG TABLET PO SCH ×3 (01:53→21:16)
[2021-08-03] MEDS: buPROPion 75 MG TABLET PO SCH ×3 (01:53→21:29)
[2021-08-03] MEDS: NYSTATIN 500,000 UNIT/5 ML UDCUP SWISH/SWAL SCH ×5 (01:54→21:17)
[2021-08-03] MEDS: PANTOPRAZOLE 40 MG TABLET PO SCH (01:55)
[2021-08-03] MEDS ORDERED: VANCOMYCIN INJ 2,000 MG in SODIUM CHLORIDE 0.9% 500 ML IV ONE (02:00)
[2021-08-03] MEDS: INSULIN LISPRO 100 UNIT/ML SUBCUT SCH ×4 (02:53→18:18)
[2021-08-03] MEDS: ALBUTEROL/IPRATROPIUM 3 ML NEB RESP TX SCH ×6 (03:17→23:41)
[2021-08-03] MEDS: LEVOTHYROXINE 100 MCG TABLET PO SCH (06:14)
[2021-08-03] MEDS: OMEPRAZOLE ODT 20 MG TABLET NG SCH (09:14)
[2021-08-03] MEDS: amLODIPine 10 MG TABLET PO SCH (09:14)
[2021-08-03] MEDS: ZINC GLUCONATE 50 MG TABLET PO SCH (09:15)
[2021-08-03] MEDS: predniSONE 20 MG TABLET PO SCH (09:15)
[2021-08-03] MEDS: CHOLECALCIFEROL 1,000 UNIT TABLET PO SCH (09:15)
[2021-08-03] MEDS: ATORVASTATIN 40 MG TABLET PO SCH (09:15)
[2021-08-03] MEDS: ASPIRIN CHEW 81 MG TABLET PO SCH (09:16)
[2021-08-03] MEDS: INSULIN GLARGINE 100 UNIT/ML SUBCUT SCH (09:17)
[2021-08-03] MEDS: FLUCONAZOLE INJ 200 MG/100 ML PREMIX IV SCH (09:18)
[2021-08-03] MEDS: SEVELAMER CARBONATE POWDER 2.4 GM PACK PO SCH ×3 (09:21→18:18)
[2021-08-03] MEDS: cefTRIAXone 1,000 MG in SODIUM CHLORIDE 0.9% 100 ML IV SCH (12:22)
[2021-08-03 20:47] LABS: ABG Base Excess 0.4 MMOL/L (-2.5-2.5); ABG HCO3 24.7 MMOL/L (20-26); ABG Oxygen Saturation 92.2 % (95-100); ABG PCO2 33.3 MM HG (35-48); ABG PH 7.463 (7.35-7.45); ABG PO2 65.2 MM HG (80-95); ABG TCO2 22.1 MMOL/L (23-27)
[2021-08-03] MEDS: ACETAMINOPHEN 325 MG TABLET PO PRN (21:13)
[2021-08-03 21:51] LABS: Basophils % 0.1 % (0.0-0.8); Hematocrit 27.2 VOL% (35.7-47.0); Hemoglobin 8.4 GM/DL (12.0-16.0); Immature Granulocytes % 0.7 %; Immature Granulocytes Absolute 0.11 #; Lymphocytes # 0.4 10*3/uL (1.4-4.0); Lymphocytes % 2.4 % (21.3-54.2); Mean Corpuscular HGB Conc 30.9 GM/DL (32-36); Mean Corpuscular Volume 98.6 FL (87-102); Mean Platelet Volume 11.4 FL (9.6-12.0); Monocytes % 6.5 % (1.7-12.7); Neutrophils % 90.3 % (38.7-73.9); Platelet Count 145 T/CUMM (130-400); Red Blood Count 2.76 MC/CUMM (3.8-5.5); Red Cell Distribution Width 13.8 % (9.3-17.3); White Blood Count 14.9 T/CUMM (4-12)
[2021-08-03 22:07] LABS: Alanine Aminotransferase 38 U/L (13-56); Albumin 2.5 G/DL (3.4-5.0); Alkaline Phosphatase 86 U/L (45-117); Aspartate Amino Transferase 25 U/L (0-37); Bilirubin,Total < 0.39 MG/DL (0.20-1.00); Blood Urea Nitrogen 80 MG/DL (7-18); Calcium 8.5 MG/DL (8.5-10.1); Carbon Dioxide 26 MMOL/L (21-32); Estimated Glom Filtration Rate 13 ML/MIN; Glucose 214 MG/DL (74-106); Potassium 4.7 MMOL/L (3.5-5.1); Sodium 136 MMOL/L (136-145); Total Protein 5.2 G/DL (6.4-8.2)
[2021-08-03 22:16] LABS: Eosinophils 2 % (0-10); Lymphocytes 4 % (20-55); Metamyelocytes 1 %; Platelet Estimate Adequate; Segmented Neutrophils 87 % (50-85); Total Cells Counted 100
[2021-08-03 22:18] LABS: Hypochromia Slight
[2021-08-03] MEDS: ONDANSETRON 4 MG/2 ML VIAL IV PRN (22:31)
[2021-08-03] MEDS ORDERED: ETOMIDATE 20 MG/10 ML VIAL IV ONE ×2 (22:56→23:02)
[2021-08-03] MEDS ORDERED: VECURONIUM 10 MG VIAL IV ONE ×2 (22:56→23:03)
[2021-08-04] MEDS: INSULIN LISPRO 100 UNIT/ML SUBCUT SCH ×4 (00:46→18:34)
[2021-08-04 00:53] LABS: ABG Base Excess 0.7 MMOL/L (-2.5-2.5); ABG HCO3 25.1 MMOL/L (20-26); ABG PCO2 36.5 MM HG (35-48); ABG PH 7.438 (7.35-7.45); ABG TCO2 22.9 MMOL/L (23-27)
[2021-08-04] MEDS: PIPERACILLIN/TAZOBACTAM 3,375 MG in SODIUM CHLORIDE 0.9% 100 ML IV SCH ×2 (00:54→12:34)
[2021-08-04 01:06] LABS: Bilirubin,Urine Negative (Negative); Blood, Urine Moderate mg/dL (Negative); Glucose,Urine (UA) Negative (Negative); Ketones,Urine Negative (Negative); Nitrite,Urine Negative (Negative); Protein,Urine 100 MG/DL; RBC,Urine 460 /HPF (0-4); Squamous Epithelial Cell,Urine Many /HPF (0-10); Urine Appearance CLOUDY (Clear); Urine Color Yellow (Yellow); Urine Specific Gravity 1.006 (1.001-1.035); Urine Urobilinogen < 2.0 EU/DL (0.2-1.0)
[2021-08-04] MEDS ORDERED: VANCOMYCIN INJ 2,000 MG in SODIUM CHLORIDE 0.9% 500 ML IV ONE ×2 (02:00→05:00)
[2021-08-04] MEDS: ALBUTEROL/IPRATROPIUM 3 ML NEB RESP TX SCH ×6 (02:15→23:12)
[2021-08-04 04:00] LABS: Hematocrit 22.5 VOL% (35.7-47.0); Hemoglobin 7.2 GM/DL (12.0-16.0); Immature Granulocytes % 0.7 %; Immature Granulocytes Absolute 0.08 #; Lymphocytes # 0.8 10*3/uL (1.4-4.0); Lymphocytes % 6.8 % (21.3-54.2); Monocytes % 9.7 % (1.7-12.7); Neutrophils % 82.8 % (38.7-73.9); Platelet Count 107 T/CUMM (130-400); Red Blood Count 2.32 MC/CUMM (3.8-5.5); Red Cell Distribution Width 13.8 % (9.3-17.3); White Blood Count 11.3 T/CUMM (4-12)
[2021-08-04 04:09] LABS: Albumin 2.2 G/DL (3.4-5.0); Bilirubin,Total 0.4 MG/DL (0.20-1.00); Calcium 8.6 MG/DL (8.5-10.1); Osmolality,Calculated 296.2 MOS/KG (273-304); Potassium 4.3 MMOL/L (3.5-5.1); Total Protein 4.9 G/DL (6.4-8.2)
[2021-08-04] MEDS: LEVOTHYROXINE 100 MCG TABLET PO SCH (06:00)
[2021-08-04] MEDS: LACTULOSE 20 GM/30 ML UDCUP PO SCH ×2 (08:21→20:50)
[2021-08-04] MEDS: ASCORBIC ACID 500 MG TABLET PO SCH ×2 (08:22→20:49)
[2021-08-04] MEDS: CHOLECALCIFEROL 1,000 UNIT TABLET PO SCH (08:22)
[2021-08-04] MEDS: ASPIRIN CHEW 81 MG TABLET PO SCH (08:22)
[2021-08-04] MEDS: NYSTATIN 500,000 UNIT/5 ML UDCUP SWISH/SWAL SCH ×4 (08:23→20:50)
[2021-08-04] MEDS: ZINC GLUCONATE 50 MG TABLET PO SCH (08:23)
[2021-08-04] MEDS: ISOSORBIDE DINITRATE 10 MG TABLET PO SCH ×3 (08:23→20:50)
[2021-08-04] MEDS: AMIODARONE 200 MG TABLET PO SCH ×2 (08:23→20:49)
[2021-08-04] MEDS: SEVELAMER CARBONATE POWDER 2.4 GM PACK PO SCH ×3 (08:23→19:33)
[2021-08-04] MEDS: predniSONE 20 MG TABLET PO SCH (08:23)
[2021-08-04] MEDS: OMEPRAZOLE ODT 20 MG TABLET NG SCH (08:23)
[2021-08-04] MEDS: buPROPion 75 MG TABLET PO SCH ×2 (08:23→20:49)
[2021-08-04] MEDS: INSULIN GLARGINE 100 UNIT/ML SUBCUT SCH (08:24)
[2021-08-04] MEDS: MICAFUNGIN 100 MG in SODIUM CHLORIDE 0.9% 100 ML IV SCH (08:24)
[2021-08-04] MEDS: METOPROLOL TARTRATE 25 MG TABLET PO SCH ×2 (08:36→20:50)
[2021-08-04] MEDS: amLODIPine 10 MG TABLET PO SCH (08:36)
[2021-08-04] MEDS: ATORVASTATIN 40 MG TABLET PO SCH (08:41)
[2021-08-04] MEDS ORDERED: SODIUM CHLORIDE 0.9% 1,000 ML IV PRN (09:38)
[2021-08-04] MEDS: FAMOTIDINE 20 MG/2 ML VIAL IV SCH (10:46)
[2021-08-04] MEDS: methylPREDNISolone SOD SUC 40 MG/1 ML VIAL IV SCH ×2 (10:48→18:35)
[2021-08-04 18:05] LABS: Hematocrit 31.5 VOL% (35.7-47.0); Hemoglobin 9.7 GM/DL (12.0-16.0)
[2021-08-04] MEDS: ESCITALOPRAM 10 MG TABLET PO SCH (20:50)
[2021-08-05] MEDS: INSULIN LISPRO 100 UNIT/ML SUBCUT SCH ×4 (01:04→18:15)
[2021-08-05] MEDS: PIPERACILLIN/TAZOBACTAM 3,375 MG in SODIUM CHLORIDE 0.9% 100 ML IV SCH ×3 (01:05→23:53)
[2021-08-05] MEDS: methylPREDNISolone SOD SUC 40 MG/1 ML VIAL IV SCH ×3 (02:30→18:00)
[2021-08-05] MEDS: ALBUTEROL/IPRATROPIUM 3 ML NEB RESP TX SCH ×6 (03:27→23:00)
[2021-08-05 04:11] LABS: Allen Test Positive; Pt O2 Delivery Device Ventilator
[2021-08-05 04:12] LABS: ABG Base Excess -4.3 MMOL/L (-2.5-2.5); ABG HCO3 19.4 MMOL/L (20-26); ABG Oxygen Saturation 98.6 % (95-100); ABG PH 7.415 (7.35-7.45); ABG PO2 184.3 MM HG (80-95); ABG TCO2 20.4 MMOL/L (23-27)
[2021-08-05] MEDS: LEVOTHYROXINE 100 MCG TABLET PO SCH (05:40)
[2021-08-05 06:29] LABS: Basophils % 0.1 % (0.0-0.8); Hematocrit 30.6 VOL% (35.7-47.0); Hemoglobin 9.8 GM/DL (12.0-16.0); Immature Granulocytes % 0.7 %; Lymphocytes # 0.2 10*3/uL (1.4-4.0); Lymphocytes % 1.2 % (21.3-54.2); Mean Corpuscular Volume 91.9 FL (87-102); Mean Platelet Volume 11.5 FL (9.6-12.0); Monocytes % 2.8 % (1.7-12.7); Neutrophils % 95.2 % (38.7-73.9); Platelet Count 108 T/CUMM (130-400); Red Blood Count 3.33 MC/CUMM (3.8-5.5); White Blood Count 13.7 T/CUMM (4-12)
[2021-08-05 06:53] LABS: Hypochromia 1+; Lymphocytes 1 % (20-55); Microcytosis 1+; Platelet Estimate Decreased; Segmented Neutrophils 95 % (50-85); Total Cells Counted 100
[2021-08-05 06:56] LABS: Calcium 8.9 MG/DL (8.5-10.1); Osmolality,Calculated 308.4 MOS/KG (273-304); Potassium 4.9 MMOL/L (3.5-5.1)
[2021-08-05 07:21] LABS: Alanine Aminotransferase 29 U/L (13-56); Albumin 2.4 G/DL (3.4-5.0); Alkaline Phosphatase 125 U/L (45-117); Aspartate Amino Transferase 17 U/L (0-37); Bilirubin,Total < 0.39 MG/DL (0.20-1.00); Blood Urea Nitrogen 104 MG/DL (7-18); Calcium 8.9 MG/DL (8.5-10.1); Carbon Dioxide 19 MMOL/L (21-32); Estimated Glom Filtration Rate 10 ML/MIN; Glucose 301 MG/DL (74-106); Osmolality,Calculated 311.2 MOS/KG (273-304); Potassium 4.9 MMOL/L (3.5-5.1); Sodium 134 MMOL/L (136-145); Total Protein 5.4 G/DL (6.4-8.2)
[2021-08-05] MEDS ORDERED: VANCOMYCIN INJ 750 MG in SODIUM CHLORIDE 0.9% 250 ML IV PRN (09:00)
[2021-08-05] MEDS: INSULIN GLARGINE 100 UNIT/ML SUBCUT SCH (09:39)
[2021-08-05] MEDS: FAMOTIDINE 20 MG/2 ML VIAL IV SCH (09:41)
[2021-08-05] MEDS: ATORVASTATIN 40 MG TABLET PO SCH (09:42)
[2021-08-05] MEDS: ASPIRIN CHEW 81 MG TABLET PO SCH (09:42)
[2021-08-05] MEDS: NYSTATIN 500,000 UNIT/5 ML UDCUP SWISH/SWAL SCH ×4 (09:42→20:23)
[2021-08-05] MEDS: METOPROLOL TARTRATE 25 MG TABLET PO SCH ×2 (09:42→20:23)
[2021-08-05] MEDS: ASCORBIC ACID 500 MG TABLET PO SCH ×2 (09:42→20:24)
[2021-08-05] MEDS: AMIODARONE 200 MG TABLET PO SCH ×2 (09:42→20:24)
[2021-08-05] MEDS: amLODIPine 10 MG TABLET PO SCH (09:42)
[2021-08-05] MEDS: CHOLECALCIFEROL 1,000 UNIT TABLET PO SCH (09:43)
[2021-08-05] MEDS: buPROPion 75 MG TABLET PO SCH ×2 (09:43→20:23)
[2021-08-05] MEDS: ZINC GLUCONATE 50 MG TABLET PO SCH (09:43)
[2021-08-05] MEDS: MICAFUNGIN 100 MG in SODIUM CHLORIDE 0.9% 100 ML IV SCH (09:44)
[2021-08-05] MEDS: LACTULOSE 20 GM/30 ML UDCUP PO SCH ×2 (09:45→20:32)
[2021-08-05] MEDS: ISOSORBIDE DINITRATE 10 MG TABLET PO SCH ×3 (09:46→20:23)
[2021-08-05] MEDS: SEVELAMER CARBONATE POWDER 2.4 GM PACK PO SCH ×3 (09:47→17:59)
[2021-08-05] MEDS ORDERED: VANCOMYCIN INJ 750 MG in SODIUM CHLORIDE 0.9% 250 ML IV ONE (17:00)
[2021-08-05] MEDS: ESCITALOPRAM 10 MG TABLET PO SCH (20:23)
[2021-08-06] MEDS: INSULIN LISPRO 100 UNIT/ML SUBCUT SCH ×5 (00:28→23:41)
[2021-08-06] MEDS: ALBUTEROL/IPRATROPIUM 3 ML NEB RESP TX SCH ×5 (02:33→19:01)
[2021-08-06] MEDS: methylPREDNISolone SOD SUC 40 MG/1 ML VIAL IV SCH ×3 (04:14→18:28)
[2021-08-06 04:20] LABS: ABG Base Excess 1.3 MMOL/L (-2.5-2.5); ABG HCO3 25.6 MMOL/L (20-26); ABG Oxygen Saturation 99.5 % (95-100); ABG PCO2 32.1 MM HG (35-48); ABG PH 7.486 (7.35-7.45); ABG TCO2 21.8 MMOL/L (23-27)
[2021-08-06 06:36] LABS: Basophils % 0.1 % (0.0-0.8); Hematocrit 31.7 VOL% (35.7-47.0); Hemoglobin 10.2 GM/DL (12.0-16.0); Immature Granulocytes Absolute 0.14 #; Lymphocytes # 0.2 10*3/uL (1.4-4.0); Lymphocytes % 1.5 % (21.3-54.2); Mean Corpuscular HGB Conc 32.2 GM/DL (32-36); Mean Corpuscular Volume 91.4 FL (87-102); Mean Platelet Volume 11.4 FL (9.6-12.0); Monocytes % 2.6 % (1.7-12.7); Neutrophils % 94.8 % (38.7-73.9); Platelet Count 110 T/CUMM (130-400); Red Blood Count 3.47 MC/CUMM (3.8-5.5); Red Cell Distribution Width 16.8 % (9.3-17.3); White Blood Count 13.6 T/CUMM (4-12)
[2021-08-06 06:42] LABS: INR 0.9; PT Patient Result 10.5 SECS (10.5-12.0)
[2021-08-06 07:03] LABS: Albumin 2.3 G/DL (3.4-5.0); Bilirubin,Total 0.8 MG/DL (0.20-1.00); Calcium 8.9 MG/DL (8.5-10.1); Osmolality,Calculated 290.1 MOS/KG (273-304); Potassium 4.4 MMOL/L (3.5-5.1); Total Protein 5.4 G/DL (6.4-8.2)
[2021-08-06 07:06] LABS: Band Neutrophils 1 % (0-10); Lymphocytes 2 % (20-55); Platelet Estimate Normal; Segmented Neutrophils 94 % (50-85); Total Cells Counted 100
[2021-08-06] MEDS ORDERED: fentaNYL 100 MCG/2 ML VIAL ONE (07:56)
[2021-08-06] MEDS ORDERED: MIDAZOLAM 2 MG/2 ML VIAL ONE (07:56)
[2021-08-06] MEDS ORDERED: LACTATED RINGERS 1,000 ML IV SCH (08:00)
[2021-08-06] MEDS ORDERED: BUPIVACAINE MPF 0.25% 30 ML VIAL ONE (08:01)
[2021-08-06] MEDS: SODIUM CHLORIDE 0.9% 1,000 ML IV SCH (08:02)
[2021-08-06] MEDS ORDERED: SEVOFLURANE 1 UNIT/15 MINUTE INH ONE ×2 (08:18→09:51)
[2021-08-06] MEDS ORDERED: ROCURONIUM 50 MG/5 ML VIAL IV ONE (08:20)
[2021-08-06] MEDS ORDERED: ceFAZolin 1,000 MG VIAL ONE (09:33)
[2021-08-06] MEDS ORDERED: SODIUM CHLORIDE 0.9% 250 ML IV ONE (09:51)
[2021-08-06] MEDS: MICAFUNGIN 100 MG in SODIUM CHLORIDE 0.9% 100 ML IV SCH (10:17)
[2021-08-06] MEDS: FAMOTIDINE 20 MG/2 ML VIAL IV SCH (10:22)
[2021-08-06] MEDS: ASCORBIC ACID 500 MG TABLET PO SCH ×2 (10:51→20:13)
[2021-08-06] MEDS: ASPIRIN CHEW 81 MG TABLET PO SCH (10:52)
[2021-08-06] MEDS: buPROPion 75 MG TABLET PO SCH ×2 (10:52→20:13)
[2021-08-06] MEDS: ISOSORBIDE DINITRATE 10 MG TABLET PO SCH ×3 (10:52→20:13)
[2021-08-06] MEDS: CHOLECALCIFEROL 1,000 UNIT TABLET PO SCH (10:52)
[2021-08-06] MEDS: AMIODARONE 200 MG TABLET PO SCH ×2 (10:53→20:13)
[2021-08-06] MEDS: ZINC GLUCONATE 50 MG TABLET PO SCH (10:53)
[2021-08-06] MEDS: LEVOTHYROXINE 100 MCG TABLET PO SCH (10:53)
[2021-08-06] MEDS: ATORVASTATIN 40 MG TABLET PO SCH (10:53)
[2021-08-06] MEDS: LACTULOSE 20 GM/30 ML UDCUP PO SCH ×2 (10:54→20:12)
[2021-08-06] MEDS: amLODIPine 10 MG TABLET PO SCH (10:54)
[2021-08-06] MEDS: METOPROLOL TARTRATE 25 MG TABLET PO SCH ×2 (10:54→20:13)
[2021-08-06] MEDS: INSULIN GLARGINE 100 UNIT/ML SUBCUT SCH (10:55)
[2021-08-06] MEDS: NYSTATIN 500,000 UNIT/5 ML UDCUP SWISH/SWAL SCH ×4 (10:56→20:12)
[2021-08-06] MEDS: SEVELAMER CARBONATE POWDER 2.4 GM PACK PO SCH ×3 (10:56→16:57)
[2021-08-06] MEDS: PIPERACILLIN/TAZOBACTAM 3,375 MG in SODIUM CHLORIDE 0.9% 100 ML IV SCH ×2 (11:35→23:42)
[2021-08-06] MEDS: ESCITALOPRAM 10 MG TABLET PO SCH (20:13)
[2021-08-07] MEDS: ALBUTEROL/IPRATROPIUM 3 ML NEB RESP TX SCH ×7 (00:20→23:12)
[2021-08-07] MEDS: methylPREDNISolone SOD SUC 40 MG/1 ML VIAL IV SCH ×3 (01:15→18:23)
[2021-08-07 03:39] LABS: ABG Base Excess -1.8 MMOL/L (-2.5-2.5); ABG HCO3 21.2 MMOL/L (20-26); ABG Oxygen Saturation 98.6 % (95-100); ABG PCO2 29.8 MM HG (35-48); ABG PO2 171.7 MM HG (80-95); ABG TCO2 22.1 MMOL/L (23-27)
[2021-08-07 05:40] LABS: Basophils % 0.1 % (0.0-0.8); Hematocrit 29.7 VOL% (35.7-47.0); Hemoglobin 9.7 GM/DL (12.0-16.0); Immature Granulocytes % 0.7 %; Immature Granulocytes Absolute 0.08 #; Lymphocytes # 0.2 10*3/uL (1.4-4.0); Lymphocytes % 1.6 % (21.3-54.2); Mean Corpuscular HGB Conc 32.7 GM/DL (32-36); Mean Corpuscular Volume 92.2 FL (87-102); Mean Platelet Volume 12.2 FL (9.6-12.0); Monocytes % 2.7 % (1.7-12.7); Neutrophils % 94.9 % (38.7-73.9); Platelet Count 97 T/CUMM (130-400); Red Blood Count 3.22 MC/CUMM (3.8-5.5); Red Cell Distribution Width 16.7 % (9.3-17.3); White Blood Count 12.3 T/CUMM (4-12)
[2021-08-07] MEDS: INSULIN LISPRO 100 UNIT/ML SUBCUT SCH ×3 (05:43→18:17)
[2021-08-07 05:59] LABS: Albumin 2.4 G/DL (3.4-5.0); Bilirubin,Total 0.5 MG/DL (0.20-1.00); Osmolality,Calculated 295.2 MOS/KG (273-304); Potassium 4.6 MMOL/L (3.5-5.1); Total Protein 5.5 G/DL (6.4-8.2)
[2021-08-07 06:06] LABS: Hypochromia 1+; Microcytosis 1+; Platelet Estimate Decreased; Segmented Neutrophils 96 % (50-85); Total Cells Counted 100
[2021-08-07] MEDS ORDERED: INSULIN GLARGINE 100 UNIT/ML SUBCUT SCH (09:00)
[2021-08-07] MEDS: FAMOTIDINE 20 MG/2 ML VIAL IV SCH (10:10)
[2021-08-07 10:44] LABS: Fungitell Quantitative Value 207 pg/mL (<60 pg/mL)
[2021-08-07] MEDS: SEVELAMER CARBONATE POWDER 2.4 GM PACK PO SCH ×3 (10:55→17:09)
[2021-08-07] MEDS: LACTULOSE 20 GM/30 ML UDCUP PO SCH ×2 (10:55→21:25)
[2021-08-07] MEDS: NYSTATIN 500,000 UNIT/5 ML UDCUP SWISH/SWAL SCH ×4 (10:55→21:24)
[2021-08-07] MEDS: MICAFUNGIN 100 MG in SODIUM CHLORIDE 0.9% 100 ML IV SCH (10:59)
[2021-08-07] MEDS: AMIODARONE 200 MG TABLET PO SCH ×2 (11:47→21:25)
[2021-08-07] MEDS: LEVOTHYROXINE 100 MCG TABLET PO SCH (11:47)
[2021-08-07] MEDS: amLODIPine 10 MG TABLET PO SCH (11:48)
[2021-08-07] MEDS: METOPROLOL TARTRATE 25 MG TABLET PO SCH ×2 (11:48→21:27)
[2021-08-07] MEDS: ISOSORBIDE DINITRATE 10 MG TABLET PO SCH ×3 (11:48→21:25)
[2021-08-07] MEDS ORDERED: propofoL 200 MG/20 ML VIAL IV ONE (13:07)
[2021-08-07] MEDS ORDERED: LIDOCAINE 2% 5 ML VIAL ONE (13:07)
[2021-08-07] MEDS ORDERED: MIDAZOLAM 2 MG/2 ML VIAL ONE (13:07)
[2021-08-07] MEDS ORDERED: ETOMIDATE 20 MG/10 ML VIAL IV ONE (13:10)
[2021-08-07] MEDS ORDERED: PHENYLEPHRINE 1 MG/10 ML SYRINGE IV ONE (13:25)
[2021-08-07] MEDS: PIPERACILLIN/TAZOBACTAM 3,375 MG in SODIUM CHLORIDE 0.9% 100 ML IV SCH (13:58)
[2021-08-07] MEDS: ATORVASTATIN 40 MG TABLET PO SCH (14:02)
[2021-08-07] MEDS: ASPIRIN CHEW 81 MG TABLET PO SCH (14:02)
[2021-08-07] MEDS: ASCORBIC ACID 500 MG TABLET PO SCH ×2 (14:02→21:24)
[2021-08-07] MEDS: buPROPion 75 MG TABLET PO SCH ×2 (14:03→21:25)
[2021-08-07] MEDS: CHOLECALCIFEROL 1,000 UNIT TABLET PO SCH (14:03)
[2021-08-07] MEDS: ZINC GLUCONATE 50 MG TABLET PO SCH (14:03)
[2021-08-07] MEDS ORDERED: VANCOMYCIN INJ 750 MG in SODIUM CHLORIDE 0.9% 250 ML IV ONE (17:00)
[2021-08-07] MEDS: SODIUM CHLORIDE 0.9% 1,000 ML IV SCH (17:50)
[2021-08-07] MEDS: ESCITALOPRAM 10 MG TABLET PO SCH (21:25)
[2021-08-08] MEDS: PIPERACILLIN/TAZOBACTAM 3,375 MG in SODIUM CHLORIDE 0.9% 100 ML IV SCH ×2 (00:19→12:00)
[2021-08-08] MEDS: INSULIN LISPRO 100 UNIT/ML SUBCUT SCH ×4 (01:32→18:41)
[2021-08-08] MEDS: methylPREDNISolone SOD SUC 40 MG/1 ML VIAL IV SCH ×3 (01:49→17:25)
[2021-08-08] MEDS: ALBUTEROL/IPRATROPIUM 3 ML NEB RESP TX SCH ×5 (04:00→19:40)
[2021-08-08 04:10] LABS: ABG Base Excess -0.9 MMOL/L (-2.5-2.5); ABG HCO3 22.6 MMOL/L (20-26); ABG Oxygen Saturation 98.1 % (95-100); ABG PCO2 33.2 MM HG (35-48); ABG PH 7.451 (7.35-7.45); ABG PO2 123.8 MM HG (80-95); ABG TCO2 23.6 MMOL/L (23-27)
[2021-08-08] MEDS: LEVOTHYROXINE 100 MCG TABLET PO SCH (05:37)
[2021-08-08 06:33] LABS: Albumin 2.4 G/DL (3.4-5.0); Bilirubin,Total 1.2 MG/DL (0.20-1.00); Calcium 8.7 MG/DL (8.5-10.1); Potassium 4.4 MMOL/L (3.5-5.1); Total Protein 5.3 G/DL (6.4-8.2)
[2021-08-08] MEDS: NYSTATIN 500,000 UNIT/5 ML UDCUP SWISH/SWAL SCH ×4 (08:21→20:35)
[2021-08-08] MEDS: CHOLECALCIFEROL 1,000 UNIT TABLET PO SCH (08:21)
[2021-08-08] MEDS: LACTULOSE 20 GM/30 ML UDCUP PO SCH ×2 (08:21→20:36)
[2021-08-08] MEDS: ISOSORBIDE DINITRATE 10 MG TABLET PO SCH ×3 (08:21→20:35)
[2021-08-08] MEDS: ZINC GLUCONATE 50 MG TABLET PO SCH (08:21)
[2021-08-08] MEDS: buPROPion 75 MG TABLET PO SCH ×2 (08:22→20:35)
[2021-08-08] MEDS: ASPIRIN CHEW 81 MG TABLET PO SCH (08:22)
[2021-08-08] MEDS: SEVELAMER CARBONATE POWDER 2.4 GM PACK PO SCH ×3 (08:22→17:23)
[2021-08-08] MEDS: ASCORBIC ACID 500 MG TABLET PO SCH ×2 (08:22→20:35)
[2021-08-08] MEDS: ATORVASTATIN 40 MG TABLET PO SCH (08:22)
[2021-08-08] MEDS: amLODIPine 10 MG TABLET PO SCH (08:22)
[2021-08-08] MEDS: INSULIN GLARGINE 100 UNIT/ML SUBCUT SCH (08:23)
[2021-08-08] MEDS: MICAFUNGIN 100 MG in SODIUM CHLORIDE 0.9% 100 ML IV SCH (08:47)
[2021-08-08] MEDS: FAMOTIDINE 20 MG/2 ML VIAL IV SCH (09:06)
[2021-08-08] MEDS: AMIODARONE 200 MG TABLET PO SCH ×2 (10:23→20:35)
[2021-08-08] MEDS: METOPROLOL TARTRATE 25 MG TABLET PO SCH ×2 (10:23→22:10)
[2021-08-08] MEDS: ESCITALOPRAM 10 MG TABLET PO SCH (20:36)
[2021-08-09] MEDS: ALBUTEROL/IPRATROPIUM 3 ML NEB RESP TX SCH ×6 (00:15→19:40)
[2021-08-09] MEDS: INSULIN LISPRO 100 UNIT/ML SUBCUT SCH ×4 (00:48→18:16)
[2021-08-09] MEDS: PIPERACILLIN/TAZOBACTAM 3,375 MG in SODIUM CHLORIDE 0.9% 100 ML IV SCH ×2 (01:25→11:51)
[2021-08-09] MEDS: methylPREDNISolone SOD SUC 40 MG/1 ML VIAL IV SCH ×3 (02:50→18:16)
[2021-08-09 04:27] LABS: ABG Base Excess -1.7 MMOL/L (-2.5-2.5); ABG HCO3 21.7 MMOL/L (20-26); ABG Oxygen Saturation 98.3 % (95-100); ABG PO2 131.4 MM HG (80-95); ABG TCO2 22.7 MMOL/L (23-27)
[2021-08-09] MEDS: LEVOTHYROXINE 100 MCG TABLET PO SCH (06:09)
[2021-08-09 07:02] LABS: Calcium 8.6 MG/DL (8.5-10.1); Potassium 4.3 MMOL/L (3.5-5.1)
[2021-08-09] MEDS: SODIUM CHLORIDE 0.9% 1,000 ML IV SCH ×2 (07:45→08:23)
[2021-08-09] MEDS: METOPROLOL TARTRATE 25 MG TABLET PO SCH ×2 (08:04→22:15)
[2021-08-09] MEDS: buPROPion 75 MG TABLET PO SCH ×2 (08:04→20:52)
[2021-08-09] MEDS: LACTULOSE 20 GM/30 ML UDCUP PO SCH ×2 (08:04→20:51)
[2021-08-09] MEDS: ATORVASTATIN 40 MG TABLET PO SCH (08:04)
[2021-08-09] MEDS: ZINC GLUCONATE 50 MG TABLET PO SCH (08:04)
[2021-08-09] MEDS: NYSTATIN 500,000 UNIT/5 ML UDCUP SWISH/SWAL SCH ×4 (08:04→20:52)
[2021-08-09] MEDS: CHOLECALCIFEROL 1,000 UNIT TABLET PO SCH (08:04)
[2021-08-09] MEDS: ASPIRIN CHEW 81 MG TABLET PO SCH (08:04)
[2021-08-09] MEDS: amLODIPine 10 MG TABLET PO SCH (08:05)
[2021-08-09] MEDS: MICAFUNGIN 100 MG in SODIUM CHLORIDE 0.9% 100 ML IV SCH (08:05)
[2021-08-09] MEDS: ASCORBIC ACID 500 MG TABLET PO SCH ×2 (08:05→20:52)
[2021-08-09] MEDS: SEVELAMER CARBONATE POWDER 2.4 GM PACK PO SCH ×3 (08:05→16:43)
[2021-08-09] MEDS: ISOSORBIDE DINITRATE 10 MG TABLET PO SCH ×3 (08:05→20:52)
[2021-08-09] MEDS: AMIODARONE 200 MG TABLET PO SCH ×2 (08:05→20:52)
[2021-08-09] MEDS: INSULIN GLARGINE 100 UNIT/ML SUBCUT SCH (08:24)
[2021-08-09] MEDS: FAMOTIDINE 20 MG/2 ML VIAL IV SCH (09:52)
[2021-08-09] MEDS ORDERED: VANCOMYCIN INJ 500 MG in SODIUM CHLORIDE 0.9% 100 ML IV PRN (15:00)
[2021-08-09] MEDS ORDERED: VANCOMYCIN INJ 500 MG in SODIUM CHLORIDE 0.9% 100 ML IV ONE (17:00)
[2021-08-09] MEDS: ZINC OXIDE 16% PASTE 57 GM TUBE TOP SCH (20:50)
[2021-08-09] MEDS: ESCITALOPRAM 10 MG TABLET PO SCH (20:52)
[2021-08-10] MEDS: ALBUTEROL/IPRATROPIUM 3 ML NEB RESP TX SCH ×7 (00:30→23:15)
[2021-08-10] MEDS: INSULIN LISPRO 100 UNIT/ML SUBCUT SCH ×4 (00:35→17:42)
[2021-08-10] MEDS: PIPERACILLIN/TAZOBACTAM 3,375 MG in SODIUM CHLORIDE 0.9% 100 ML IV SCH (00:35)
[2021-08-10] MEDS: methylPREDNISolone SOD SUC 40 MG/1 ML VIAL IV SCH ×3 (03:00→21:05)
[2021-08-10 04:40] LABS: ABG Base Excess -0.4 MMOL/L (-2.5-2.5); ABG HCO3 24.1 MMOL/L (20-26); ABG Oxygen Saturation 99.8 % (95-100); ABG PCO2 32.2 MM HG (35-48); ABG PH 7.459 (7.35-7.45); ABG TCO2 20.9 MMOL/L (23-27)
[2021-08-10 05:08] LABS: Calcium 8.5 MG/DL (8.5-10.1); Osmolality,Calculated 288.2 MOS/KG (273-304); Potassium 3.8 MMOL/L (3.5-5.1)
[2021-08-10] MEDS: LEVOTHYROXINE 100 MCG TABLET PO SCH (05:40)
[2021-08-10] MEDS: MICAFUNGIN 100 MG in SODIUM CHLORIDE 0.9% 100 ML IV SCH (08:35)
[2021-08-10] MEDS: SEVELAMER CARBONATE POWDER 2.4 GM PACK PO SCH ×3 (08:47→16:21)
[2021-08-10] MEDS: ZINC OXIDE 16% PASTE 57 GM TUBE TOP SCH ×2 (08:47→21:05)
[2021-08-10] MEDS: INSULIN GLARGINE 100 UNIT/ML SUBCUT SCH (08:47)
[2021-08-10] MEDS: buPROPion 75 MG TABLET PO SCH ×2 (08:48→21:06)
[2021-08-10] MEDS: amLODIPine 10 MG TABLET PO SCH (08:48)
[2021-08-10] MEDS: ZINC GLUCONATE 50 MG TABLET PO SCH (08:48)
[2021-08-10] MEDS: ASCORBIC ACID 500 MG TABLET PO SCH ×2 (08:48→21:06)
[2021-08-10] MEDS: METOPROLOL TARTRATE 25 MG TABLET PO SCH ×2 (08:48→21:05)
[2021-08-10] MEDS: NYSTATIN 500,000 UNIT/5 ML UDCUP SWISH/SWAL SCH ×4 (08:48→21:05)
[2021-08-10] MEDS: ISOSORBIDE DINITRATE 10 MG TABLET PO SCH ×3 (08:48→21:05)
[2021-08-10] MEDS: ASPIRIN CHEW 81 MG TABLET PO SCH (08:48)
[2021-08-10] MEDS: ATORVASTATIN 40 MG TABLET PO SCH (08:48)
[2021-08-10] MEDS: CHOLECALCIFEROL 1,000 UNIT TABLET PO SCH (08:48)
[2021-08-10] MEDS: AMIODARONE 200 MG TABLET PO SCH ×2 (08:49→21:05)
[2021-08-10] MEDS: FAMOTIDINE 20 MG/2 ML VIAL IV SCH (09:05)
[2021-08-10] MEDS: LACTULOSE 20 GM/30 ML UDCUP PO SCH (09:47)
[2021-08-10] MEDS: ESCITALOPRAM 10 MG TABLET PO SCH (21:05)
[2021-08-11] MEDS: INSULIN LISPRO 100 UNIT/ML SUBCUT SCH ×4 (00:30→19:37)
[2021-08-11] MEDS: ALBUTEROL/IPRATROPIUM 3 ML NEB RESP TX SCH ×4 (02:46→14:52)
[2021-08-11 04:25] LABS: Hematocrit 29.6 VOL% (35.7-47.0); Hemoglobin 9.3 GM/DL (12.0-16.0); Immature Granulocytes % 0.4 %; Immature Granulocytes Absolute 0.02 #; Lymphocytes # 0.2 10*3/uL (1.4-4.0); Lymphocytes % 3.5 % (21.3-54.2); Mean Corpuscular HGB Conc 31.4 GM/DL (32-36); Mean Corpuscular Volume 93.1 FL (87-102); Mean Platelet Volume 10.9 FL (9.6-12.0); Monocytes % 5.5 % (1.7-12.7); Neutrophils % 90.6 % (38.7-73.9); Red Blood Count 3.18 MC/CUMM (3.8-5.5); Red Cell Distribution Width 16.8 % (9.3-17.3)
[2021-08-11 04:37] LABS: ABG Base Excess -0.3 MMOL/L (-2.5-2.5); ABG HCO3 24.2 MMOL/L (20-26); ABG Oxygen Saturation 99.4 % (95-100); ABG PCO2 37.6 MM HG (35-48); ABG PH 7.413 (7.35-7.45); ABG TCO2 21.6 MMOL/L (23-27)
[2021-08-11 04:37] LABS: Calcium 8.7 MG/DL (8.5-10.1); Osmolality,Calculated 286.5 MOS/KG (273-304); Potassium 4.1 MMOL/L (3.5-5.1)
[2021-08-11 04:38] LABS: Platelet Count 81 T/CUMM (130-400); White Blood Count 5.5 T/CUMM (4-12)
[2021-08-11 04:47] LABS: Hypochromia 1+; Lymphocytes 1 % (20-55); Microcytosis 1+; Platelet Estimate Decreased; Segmented Neutrophils 93 % (50-85); Total Cells Counted 100
[2021-08-11] MEDS: LEVOTHYROXINE 100 MCG TABLET PO SCH (06:13)
[2021-08-11] MEDS: NYSTATIN 500,000 UNIT/5 ML UDCUP SWISH/SWAL SCH ×4 (09:49→22:00)
[2021-08-11] MEDS: predniSONE 20 MG TABLET PEG SCH ×2 (09:49→22:00)
[2021-08-11] MEDS: ATORVASTATIN 40 MG TABLET PO SCH (09:50)
[2021-08-11] MEDS: METOPROLOL TARTRATE 25 MG TABLET PO SCH ×2 (09:50→22:30)
[2021-08-11] MEDS: CHOLECALCIFEROL 1,000 UNIT TABLET PO SCH (09:50)
[2021-08-11] MEDS: AMIODARONE 200 MG TABLET PO SCH ×2 (09:50→22:00)
[2021-08-11] MEDS: ASCORBIC ACID 500 MG TABLET PO SCH ×2 (09:51→22:00)
[2021-08-11] MEDS: ZINC GLUCONATE 50 MG TABLET PO SCH (09:51)
[2021-08-11] MEDS: INSULIN GLARGINE 100 UNIT/ML SUBCUT SCH (09:51)
[2021-08-11] MEDS: ASPIRIN CHEW 81 MG TABLET PO SCH (09:51)
[2021-08-11] MEDS: SEVELAMER CARBONATE POWDER 2.4 GM PACK PO SCH ×3 (09:51→17:00)
[2021-08-11] MEDS: amLODIPine 10 MG TABLET PO SCH (09:51)
[2021-08-11] MEDS: ISOSORBIDE DINITRATE 10 MG TABLET PO SCH ×3 (09:51→22:30)
[2021-08-11] MEDS: buPROPion 75 MG TABLET PO SCH ×2 (09:51→22:00)
[2021-08-11] MEDS: ZINC OXIDE 16% PASTE 57 GM TUBE TOP SCH ×2 (09:52→22:00)
[2021-08-11] MEDS: FAMOTIDINE 8 MG/ML 50 ML/BOTTLE PEG SCH (10:06)
[2021-08-11] MEDS: MICAFUNGIN 100 MG in SODIUM CHLORIDE 0.9% 100 ML IV SCH (10:06)
[2021-08-11] MEDS: SODIUM CHLORIDE 1 GM TABLET PO SCH (13:04)
[2021-08-11] MEDS: ESCITALOPRAM 10 MG TABLET PO SCH (22:00)
[2021-08-12] MEDS: ALBUTEROL/IPRATROPIUM 3 ML NEB RESP TX SCH ×9 (00:15→23:08)
[2021-08-12] MEDS: INSULIN LISPRO 100 UNIT/ML SUBCUT SCH ×4 (00:30→17:02)
[2021-08-12 05:46] LABS: ABG Base Excess -3.1 MMOL/L (-2.5-2.5); ABG Oxygen Saturation 97.7 % (95-100); ABG PCO2 34.1 MM HG (35-48); ABG PH 7.407 (7.35-7.45); ABG PO2 114.5 MM HG (80-95)
[2021-08-12] MEDS: LEVOTHYROXINE 100 MCG TABLET PO SCH (06:25)
[2021-08-12 06:49] LABS: Osmolality,Calculated 287.7 MOS/KG (273-304); Potassium 4.4 MMOL/L (3.5-5.1)
[2021-08-12] MEDS: ZINC GLUCONATE 50 MG TABLET PO SCH (09:09)
[2021-08-12] MEDS: ASCORBIC ACID 500 MG TABLET PO SCH ×2 (09:10→22:19)
[2021-08-12] MEDS: CHOLECALCIFEROL 1,000 UNIT TABLET PO SCH (09:10)
[2021-08-12] MEDS: ASPIRIN CHEW 81 MG TABLET PO SCH (09:11)
[2021-08-12] MEDS: buPROPion 75 MG TABLET PO SCH ×2 (09:11→22:19)
[2021-08-12] MEDS: ATORVASTATIN 40 MG TABLET PO SCH (09:11)
[2021-08-12] MEDS: SODIUM CHLORIDE 1 GM TABLET PO SCH (09:11)
[2021-08-12] MEDS: AMIODARONE 200 MG TABLET PO SCH ×2 (09:12→22:18)
[2021-08-12] MEDS: predniSONE 20 MG TABLET PEG SCH ×2 (09:12→22:19)
[2021-08-12] MEDS: NYSTATIN 500,000 UNIT/5 ML UDCUP SWISH/SWAL SCH ×4 (09:12→22:19)
[2021-08-12] MEDS: SEVELAMER CARBONATE POWDER 2.4 GM PACK PO SCH ×3 (09:13→17:02)
[2021-08-12] MEDS: INSULIN GLARGINE 100 UNIT/ML SUBCUT SCH (09:13)
[2021-08-12] MEDS: ZINC OXIDE 16% PASTE 57 GM TUBE TOP SCH ×2 (09:15→22:18)
[2021-08-12] MEDS: FAMOTIDINE 8 MG/ML 50 ML/BOTTLE PEG SCH (09:17)
[2021-08-12] MEDS: amLODIPine 10 MG TABLET PO SCH (10:54)
[2021-08-12] MEDS: METOPROLOL TARTRATE 25 MG TABLET PO SCH ×2 (10:54→22:19)
[2021-08-12] MEDS: ISOSORBIDE DINITRATE 10 MG TABLET PO SCH ×3 (10:54→22:18)
[2021-08-12] MEDS ORDERED: ALBUMIN 5% 25 GM/500 ML VIAL IV ONE (15:49)
[2021-08-12] MEDS ORDERED: ALBUMIN 25% 12.5 GM/50 ML VIAL IV ONE (15:57)
[2021-08-12] MEDS: ESCITALOPRAM 10 MG TABLET PO SCH (22:19)
[2021-08-13] MEDS: INSULIN LISPRO 100 UNIT/ML SUBCUT SCH ×4 (03:07→17:00)
[2021-08-13] MEDS: ALBUTEROL/IPRATROPIUM 3 ML NEB RESP TX SCH ×6 (03:50→23:23)
[2021-08-13 04:07] LABS: ABG Base Excess 1.3 MMOL/L (-2.5-2.5); ABG HCO3 25.6 MMOL/L (20-26); ABG Oxygen Saturation 98.7 % (95-100); ABG PCO2 39.6 MM HG (35-48); ABG PH 7.422 (7.35-7.45); ABG TCO2 23.5 MMOL/L (23-27)
[2021-08-13 04:43] LABS: Hematocrit 29.8 VOL% (35.7-47.0); Hemoglobin 9.6 GM/DL (12.0-16.0); Immature Granulocytes % 0.8 %; Immature Granulocytes Absolute 0.04 #; Lymphocytes # 0.2 10*3/uL (1.4-4.0); Lymphocytes % 3.1 % (21.3-54.2); Mean Corpuscular HGB Conc 32.2 GM/DL (32-36); Mean Corpuscular Volume 92.5 FL (87-102); Mean Platelet Volume 11.3 FL (9.6-12.0); Monocytes % 4.7 % (1.7-12.7); Neutrophils % 91.4 % (38.7-73.9); Platelet Count 87 T/CUMM (130-400); Red Blood Count 3.22 MC/CUMM (3.8-5.5); Red Cell Distribution Width 17.9 % (9.3-17.3); White Blood Count 5.1 T/CUMM (4-12)
[2021-08-13 04:59] LABS: Calcium 8.9 MG/DL (8.5-10.1); Potassium 4.3 MMOL/L (3.5-5.1)
[2021-08-13 05:14] LABS: Band Neutrophils 3 % (0-10); Hypochromia 1+; Lymphocytes 2 % (20-55); Microcytosis 1+; Ovalocytes Slight; Platelet Estimate Decreased; Segmented Neutrophils 89 % (50-85); Total Cells Counted 100
[2021-08-13] MEDS: INSULIN GLARGINE 100 UNIT/ML SUBCUT SCH (08:46)
[2021-08-13] MEDS: ASPIRIN CHEW 81 MG TABLET PO SCH (08:48)
[2021-08-13] MEDS: CHOLECALCIFEROL 1,000 UNIT TABLET PO SCH (08:48)
[2021-08-13] MEDS: SEVELAMER CARBONATE POWDER 2.4 GM PACK PO SCH ×3 (08:48→16:58)
[2021-08-13] MEDS: NYSTATIN 500,000 UNIT/5 ML UDCUP SWISH/SWAL SCH ×4 (08:48→21:47)
[2021-08-13] MEDS: SODIUM CHLORIDE 1 GM TABLET PO SCH (08:48)
[2021-08-13] MEDS: ASCORBIC ACID 500 MG TABLET PO SCH ×2 (08:49→21:24)
[2021-08-13] MEDS: LEVOTHYROXINE 100 MCG TABLET PO SCH (08:49)
[2021-08-13] MEDS: predniSONE 20 MG TABLET PEG SCH ×2 (08:49→21:24)
[2021-08-13] MEDS: ATORVASTATIN 40 MG TABLET PO SCH (08:49)
[2021-08-13] MEDS: AMIODARONE 200 MG TABLET PO SCH ×2 (08:49→21:24)
[2021-08-13] MEDS: ZINC GLUCONATE 50 MG TABLET PO SCH (08:49)
[2021-08-13] MEDS: buPROPion 75 MG TABLET PO SCH ×2 (08:49→21:23)
[2021-08-13] MEDS: ZINC OXIDE 16% PASTE 57 GM TUBE TOP SCH ×2 (08:50→21:23)
[2021-08-13] MEDS: METOPROLOL TARTRATE 25 MG TABLET PO SCH ×2 (08:52→21:24)
[2021-08-13] MEDS: FAMOTIDINE 8 MG/ML 50 ML/BOTTLE PEG SCH (09:00)
[2021-08-13] MEDS: ISOSORBIDE DINITRATE 10 MG TABLET PO SCH ×3 (09:05→21:24)
[2021-08-13] MEDS: ESCITALOPRAM 10 MG TABLET PO SCH (21:24)
[2021-08-14] MEDS: INSULIN LISPRO 100 UNIT/ML SUBCUT SCH ×4 (01:30→19:09)
[2021-08-14] MEDS: ALBUTEROL/IPRATROPIUM 3 ML NEB RESP TX SCH ×6 (03:03→23:05)
[2021-08-14 04:02] LABS: Basophils % 0.2 % (0.0-0.8); Hematocrit 28.9 VOL% (35.7-47.0); Hemoglobin 9.1 GM/DL (12.0-16.0); Immature Granulocytes % 0.7 %; Immature Granulocytes Absolute 0.04 #; Lymphocytes # 0.1 10*3/uL (1.4-4.0); Lymphocytes % 1.9 % (21.3-54.2); Mean Corpuscular HGB Conc 31.5 GM/DL (32-36); Mean Corpuscular Volume 95.1 FL (87-102); Mean Platelet Volume 11.5 FL (9.6-12.0); Monocytes % 5.3 % (1.7-12.7); Neutrophils % 91.9 % (38.7-73.9); Platelet Count 101 T/CUMM (130-400); Red Blood Count 3.04 MC/CUMM (3.8-5.5); Red Cell Distribution Width 18.2 % (9.3-17.3); White Blood Count 5.7 T/CUMM (4-12)
[2021-08-14 04:22] LABS: Bilirubin,Total 0.4 MG/DL (0.20-1.00); Calcium 9.8 MG/DL (8.5-10.1); Osmolality,Calculated 291.4 MOS/KG (273-304); Potassium 4.6 MMOL/L (3.5-5.1)
[2021-08-14 04:27] LABS: Band Neutrophils 3 % (0-10); Hypochromia Slight; Lymphocytes 1 % (20-55); Segmented Neutrophils 93 % (50-85); Total Cells Counted 100
[2021-08-14 04:28] LABS: Anisocytosis 1+; Microcytosis 1+; Ovalocytes Slight; Platelet Estimate Decreased
[2021-08-14] MEDS: ASPIRIN CHEW 81 MG TABLET PO SCH (08:35)
[2021-08-14] MEDS: METOPROLOL TARTRATE 25 MG TABLET PO SCH ×2 (08:35→21:14)
[2021-08-14] MEDS: ISOSORBIDE DINITRATE 10 MG TABLET PO SCH ×3 (08:35→21:14)
[2021-08-14] MEDS: ASCORBIC ACID 500 MG TABLET PO SCH ×2 (08:35→21:15)
[2021-08-14] MEDS: NYSTATIN 500,000 UNIT/5 ML UDCUP SWISH/SWAL SCH ×4 (08:36→21:13)
[2021-08-14] MEDS: LEVOTHYROXINE 100 MCG TABLET PO SCH (08:36)
[2021-08-14] MEDS: CHOLECALCIFEROL 1,000 UNIT TABLET PO SCH (08:36)
[2021-08-14] MEDS: SEVELAMER CARBONATE POWDER 2.4 GM PACK PO SCH ×3 (08:37→17:16)
[2021-08-14] MEDS: ATORVASTATIN 40 MG TABLET PO SCH (08:37)
[2021-08-14] MEDS: buPROPion 75 MG TABLET PO SCH ×2 (08:37→21:14)
[2021-08-14] MEDS: predniSONE 20 MG TABLET PEG SCH ×2 (08:37→21:14)
[2021-08-14] MEDS: ZINC OXIDE 16% PASTE 57 GM TUBE TOP SCH (08:37)
[2021-08-14] MEDS: ZINC GLUCONATE 50 MG TABLET PO SCH (08:37)
[2021-08-14] MEDS: SODIUM CHLORIDE 1 GM TABLET PO SCH (08:37)
[2021-08-14] MEDS: AMIODARONE 200 MG TABLET PO SCH ×2 (08:37→21:14)
[2021-08-14] MEDS: FAMOTIDINE 8 MG/ML 50 ML/BOTTLE PEG SCH (08:38)
[2021-08-14] MEDS: INSULIN GLARGINE 100 UNIT/ML SUBCUT SCH (08:38)
[2021-08-14] MEDS: ESCITALOPRAM 10 MG TABLET PO SCH (21:13)
[2021-08-15] MEDS: INSULIN LISPRO 100 UNIT/ML SUBCUT SCH ×4 (00:52→20:01)
[2021-08-15] MEDS: ZINC OXIDE 16% PASTE 57 GM TUBE TOP SCH ×2 (02:45→20:03)
[2021-08-15] MEDS: ALBUTEROL/IPRATROPIUM 3 ML NEB RESP TX SCH ×6 (03:54→22:29)
[2021-08-15 05:56] LABS: Basophils % 0.2 % (0.0-0.8); Hematocrit 32.4 VOL% (35.7-47.0); Immature Granulocytes % 0.8 %; Immature Granulocytes Absolute 0.05 #; Lymphocytes # 0.1 10*3/uL (1.4-4.0); Lymphocytes % 1.8 % (21.3-54.2); Mean Corpuscular HGB Conc 30.9 GM/DL (32-36); Mean Corpuscular Volume 95.3 FL (87-102); Mean Platelet Volume 11.4 FL (9.6-12.0); Monocytes % 6.4 % (1.7-12.7); Neutrophils % 90.8 % (38.7-73.9); Platelet Count 100 T/CUMM (130-400); Red Cell Distribution Width 18.2 % (9.3-17.3); White Blood Count 6.6 T/CUMM (4-12)
[2021-08-15] MEDS: LEVOTHYROXINE 100 MCG TABLET PO SCH (06:18)
[2021-08-15 06:24] LABS: Band Neutrophils 2 % (0-10); Hypochromia Slight; Platelet Estimate Normal; Segmented Neutrophils 90 % (50-85); Total Cells Counted 100
[2021-08-15 07:06] LABS: Alanine Aminotransferase 25 U/L (13-56); Albumin 1.9 G/DL (3.4-5.0); Alkaline Phosphatase 194 U/L (45-117); Aspartate Amino Transferase 31 U/L (0-37); Bilirubin,Total < 0.39 MG/DL (0.20-1.00); Blood Urea Nitrogen 46 MG/DL (7-18); Calcium 9.3 MG/DL (8.5-10.1); Carbon Dioxide 22 MMOL/L (21-32); Estimated Glom Filtration Rate 22 ML/MIN; Glucose 167 MG/DL (74-106); Osmolality,Calculated 283.2 MOS/KG (273-304); Potassium 4.2 MMOL/L (3.5-5.1); Sodium 134 MMOL/L (136-145); Total Protein 5.5 G/DL (6.4-8.2)
[2021-08-15] MEDS: INSULIN GLARGINE 100 UNIT/ML SUBCUT SCH (09:30)
[2021-08-15] MEDS: FAMOTIDINE 8 MG/ML 50 ML/BOTTLE PEG SCH (09:30)
[2021-08-15] MEDS: ISOSORBIDE DINITRATE 10 MG TABLET PO SCH ×3 (09:31→21:03)
[2021-08-15] MEDS: CHOLECALCIFEROL 1,000 UNIT TABLET PO SCH (09:31)
[2021-08-15] MEDS: SEVELAMER CARBONATE POWDER 2.4 GM PACK PO SCH ×3 (09:31→16:01)
[2021-08-15] MEDS: buPROPion 75 MG TABLET PO SCH ×2 (09:31→21:03)
[2021-08-15] MEDS: ZINC GLUCONATE 50 MG TABLET PO SCH (09:31)
[2021-08-15] MEDS: METOPROLOL TARTRATE 25 MG TABLET PO SCH ×2 (09:32→21:04)
[2021-08-15] MEDS: ASCORBIC ACID 500 MG TABLET PO SCH ×2 (09:32→21:04)
[2021-08-15] MEDS: SODIUM CHLORIDE 1 GM TABLET PO SCH (09:32)
[2021-08-15] MEDS: predniSONE 20 MG TABLET PEG SCH ×2 (09:32→21:04)
[2021-08-15] MEDS: AMIODARONE 200 MG TABLET PO SCH ×2 (09:32→21:05)
[2021-08-15] MEDS: NYSTATIN 500,000 UNIT/5 ML UDCUP SWISH/SWAL SCH ×4 (09:32→21:05)
[2021-08-15] MEDS: ASPIRIN CHEW 81 MG TABLET PO SCH (09:32)
[2021-08-15] MEDS: ATORVASTATIN 40 MG TABLET PO SCH (09:32)
[2021-08-15] MEDS: MENTHOL/ZINC OXIDE OINT 71 GM JAR TOP SCH ×2 (20:02→21:03)
[2021-08-15] MEDS: ESCITALOPRAM 10 MG TABLET PO SCH (21:04)
[2021-08-16] MEDS: INSULIN LISPRO 100 UNIT/ML SUBCUT SCH ×4 (01:15→18:01)
[2021-08-16] MEDS: ALBUTEROL/IPRATROPIUM 3 ML NEB RESP TX SCH ×6 (03:10→23:00)
[2021-08-16] MEDS: LEVOTHYROXINE 100 MCG TABLET PO SCH (07:04)
[2021-08-16] MEDS: ASPIRIN CHEW 81 MG TABLET PO SCH (09:19)
[2021-08-16] MEDS: METOPROLOL TARTRATE 25 MG TABLET PO SCH ×2 (09:19→21:56)
[2021-08-16] MEDS: predniSONE 20 MG TABLET PEG SCH ×2 (09:19→21:56)
[2021-08-16] MEDS: ASCORBIC ACID 500 MG TABLET PO SCH ×2 (09:19→21:56)
[2021-08-16] MEDS: ISOSORBIDE DINITRATE 10 MG TABLET PO SCH ×3 (09:20→21:55)
[2021-08-16] MEDS: buPROPion 75 MG TABLET PO SCH ×2 (09:20→21:56)
[2021-08-16] MEDS: SODIUM CHLORIDE 1 GM TABLET PO SCH (09:20)
[2021-08-16] MEDS: ATORVASTATIN 40 MG TABLET PO SCH (09:20)
[2021-08-16] MEDS: ZINC GLUCONATE 50 MG TABLET PO SCH (09:20)
[2021-08-16] MEDS: AMIODARONE 200 MG TABLET PO SCH ×2 (09:20→21:55)
[2021-08-16] MEDS: CHOLECALCIFEROL 1,000 UNIT TABLET PO SCH (09:20)
[2021-08-16] MEDS: NYSTATIN 500,000 UNIT/5 ML UDCUP SWISH/SWAL SCH ×4 (09:21→21:56)
[2021-08-16] MEDS: SEVELAMER CARBONATE POWDER 2.4 GM PACK PO SCH (09:21)
[2021-08-16] MEDS: FAMOTIDINE 8 MG/ML 50 ML/BOTTLE PEG SCH (09:21)
[2021-08-16] MEDS: INSULIN GLARGINE 100 UNIT/ML SUBCUT SCH (09:30)
[2021-08-16] MEDS: MENTHOL/ZINC OXIDE OINT 71 GM JAR TOP SCH ×2 (11:30→21:45)
[2021-08-16] MEDS: ESCITALOPRAM 10 MG TABLET PO SCH (21:56)
[2021-08-17] MEDS: INSULIN LISPRO 100 UNIT/ML SUBCUT SCH ×4 (02:07→17:46)
[2021-08-17] MEDS: ALBUTEROL/IPRATROPIUM 3 ML NEB RESP TX SCH ×6 (03:00→23:26)
[2021-08-17 06:08] LABS: Hematocrit 29.9 VOL% (35.7-47.0); Hemoglobin 9.2 GM/DL (12.0-16.0); Immature Granulocytes % 0.8 %; Immature Granulocytes Absolute 0.05 #; Lymphocytes # 0.1 10*3/uL (1.4-4.0); Mean Corpuscular HGB Conc 30.8 GM/DL (32-36); Mean Corpuscular Volume 94.9 FL (87-102); Mean Platelet Volume 10.4 FL (9.6-12.0); Monocytes % 5.4 % (1.7-12.7); Neutrophils % 91.8 % (38.7-73.9); Platelet Count 91 T/CUMM (130-400); Red Blood Count 3.15 MC/CUMM (3.8-5.5); Red Cell Distribution Width 17.8 % (9.3-17.3); White Blood Count 6.5 T/CUMM (4-12)
[2021-08-17 06:19] LABS: Calcium 8.9 MG/DL (8.5-10.1); Osmolality,Calculated 286.4 MOS/KG (273-304)
[2021-08-17 06:35] LABS: Band Neutrophils 6 % (0-10); Lymphocytes 1 % (20-55); Platelet Estimate Adequate; Segmented Neutrophils 89 % (50-85); Total Cells Counted 100
[2021-08-17] MEDS: LEVOTHYROXINE 100 MCG TABLET PO SCH (06:37)
[2021-08-17] MEDS: NYSTATIN 500,000 UNIT/5 ML UDCUP SWISH/SWAL SCH ×4 (08:02→20:34)
[2021-08-17] MEDS: ISOSORBIDE DINITRATE 10 MG TABLET PO SCH ×3 (08:02→20:33)
[2021-08-17] MEDS: SODIUM CHLORIDE 1 GM TABLET PO SCH (08:02)
[2021-08-17] MEDS: buPROPion 75 MG TABLET PO SCH ×2 (08:02→20:33)
[2021-08-17] MEDS: ASPIRIN CHEW 81 MG TABLET PO SCH (08:02)
[2021-08-17] MEDS: CHOLECALCIFEROL 1,000 UNIT TABLET PO SCH (08:02)
[2021-08-17] MEDS: predniSONE 20 MG TABLET PEG SCH ×2 (08:03→20:33)
[2021-08-17] MEDS: ATORVASTATIN 40 MG TABLET PO SCH (08:03)
[2021-08-17] MEDS: ZINC GLUCONATE 50 MG TABLET PO SCH (08:03)
[2021-08-17] MEDS: ASCORBIC ACID 500 MG TABLET PO SCH ×2 (08:03→20:33)
[2021-08-17] MEDS: MENTHOL/ZINC OXIDE OINT 71 GM JAR TOP SCH ×2 (08:03→20:32)
[2021-08-17] MEDS: INSULIN GLARGINE 100 UNIT/ML SUBCUT SCH (08:03)
[2021-08-17] MEDS: METOPROLOL TARTRATE 25 MG TABLET PO SCH ×2 (08:03→20:33)
[2021-08-17] MEDS: AMIODARONE 200 MG TABLET PO SCH ×2 (08:03→20:32)
[2021-08-17] MEDS: FAMOTIDINE 8 MG/ML 50 ML/BOTTLE PEG SCH (08:04)
[2021-08-17] MEDS: ESCITALOPRAM 10 MG TABLET PO SCH (20:33)
[2021-08-18] MEDS: INSULIN LISPRO 100 UNIT/ML SUBCUT SCH ×5 (00:24→23:52)
[2021-08-18] MEDS: ALBUTEROL/IPRATROPIUM 3 ML NEB RESP TX SCH ×6 (02:57→22:32)
[2021-08-18] MEDS: LEVOTHYROXINE 100 MCG TABLET PO SCH (05:22)
[2021-08-18] MEDS: INSULIN GLARGINE 100 UNIT/ML SUBCUT SCH (09:05)
[2021-08-18] MEDS: predniSONE 20 MG TABLET PEG SCH ×2 (09:05→20:47)
[2021-08-18] MEDS: SODIUM CHLORIDE 1 GM TABLET PO SCH (09:06)
[2021-08-18] MEDS: CHOLECALCIFEROL 1,000 UNIT TABLET PO SCH (09:06)
[2021-08-18] MEDS: ISOSORBIDE DINITRATE 10 MG TABLET PO SCH ×3 (09:06→20:48)
[2021-08-18] MEDS: ZINC GLUCONATE 50 MG TABLET PO SCH (09:06)
[2021-08-18] MEDS: METOPROLOL TARTRATE 25 MG TABLET PO SCH ×2 (09:06→20:48)
[2021-08-18] MEDS: ASCORBIC ACID 500 MG TABLET PO SCH ×2 (09:06→20:47)
[2021-08-18] MEDS: ASPIRIN CHEW 81 MG TABLET PO SCH (09:06)
[2021-08-18] MEDS: ATORVASTATIN 40 MG TABLET PO SCH (09:06)
[2021-08-18] MEDS: buPROPion 75 MG TABLET PO SCH ×2 (09:06→20:47)
[2021-08-18] MEDS: AMIODARONE 200 MG TABLET PO SCH ×2 (09:06→20:47)
[2021-08-18] MEDS: NYSTATIN 500,000 UNIT/5 ML UDCUP SWISH/SWAL SCH ×4 (09:07→20:48)
[2021-08-18] MEDS: MENTHOL/ZINC OXIDE OINT 71 GM JAR TOP SCH ×2 (09:10→20:47)
[2021-08-18] MEDS: FAMOTIDINE 8 MG/ML 50 ML/BOTTLE PEG SCH (12:45)
[2021-08-18] MEDS: ESCITALOPRAM 10 MG TABLET PO SCH (20:47)
[2021-08-19] MEDS: ALBUTEROL/IPRATROPIUM 3 ML NEB RESP TX SCH ×5 (03:15→19:43)
[2021-08-19] MEDS: LEVOTHYROXINE 100 MCG TABLET PO SCH (05:31)
[2021-08-19] MEDS: INSULIN LISPRO 100 UNIT/ML SUBCUT SCH ×4 (05:31→23:57)
[2021-08-19 05:59] LABS: Hematocrit 31.8 VOL% (35.7-47.0); Hemoglobin 10.1 GM/DL (12.0-16.0); Immature Granulocytes % 0.9 %; Immature Granulocytes Absolute 0.07 #; Lymphocytes # 0.2 10*3/uL (1.4-4.0); Mean Corpuscular HGB Conc 31.8 GM/DL (32-36); Mean Corpuscular Volume 94.4 FL (87-102); Mean Platelet Volume 10.4 FL (9.6-12.0); Monocytes % 4.5 % (1.7-12.7); Neutrophils % 92.6 % (38.7-73.9); Platelet Count 101 T/CUMM (130-400); Red Blood Count 3.37 MC/CUMM (3.8-5.5); Red Cell Distribution Width 17.7 % (9.3-17.3); White Blood Count 7.8 T/CUMM (4-12)
[2021-08-19 06:11] LABS: Calcium 9.3 MG/DL (8.5-10.1); Osmolality,Calculated 299.5 MOS/KG (273-304)
[2021-08-19 07:04] LABS: Band Neutrophils 1 % (0-10); Lymphocytes 1 % (20-55); Microcytosis 1+; Segmented Neutrophils 94 % (50-85); Total Cells Counted 100
[2021-08-19 07:05] LABS: Ovalocytes Slight
[2021-08-19 07:06] LABS: Platelet Estimate Decreased
[2021-08-19 07:07] LABS: Hypochromia Slight
[2021-08-19] MEDS: FAMOTIDINE 8 MG/ML 50 ML/BOTTLE PEG SCH (09:52)
[2021-08-19] MEDS: INSULIN GLARGINE 100 UNIT/ML SUBCUT SCH (09:52)
[2021-08-19] MEDS: NYSTATIN 500,000 UNIT/5 ML UDCUP SWISH/SWAL SCH ×5 (09:53→22:33)
[2021-08-19] MEDS: CHOLECALCIFEROL 1,000 UNIT TABLET PO SCH (09:54)
[2021-08-19] MEDS: ASPIRIN CHEW 81 MG TABLET PO SCH (09:54)
[2021-08-19] MEDS: AMIODARONE 200 MG TABLET PO SCH ×2 (09:54→22:34)
[2021-08-19] MEDS: predniSONE 20 MG TABLET PEG SCH ×2 (09:54→22:33)
[2021-08-19] MEDS: SODIUM CHLORIDE 1 GM TABLET PO SCH (09:54)
[2021-08-19] MEDS: ISOSORBIDE DINITRATE 10 MG TABLET PO SCH ×3 (09:54→22:34)
[2021-08-19] MEDS: buPROPion 75 MG TABLET PO SCH ×2 (09:54→22:34)
[2021-08-19] MEDS: ATORVASTATIN 40 MG TABLET PO SCH (09:54)
[2021-08-19] MEDS: ASCORBIC ACID 500 MG TABLET PO SCH (09:55)
[2021-08-19] MEDS: MENTHOL/ZINC OXIDE OINT 71 GM JAR TOP SCH ×2 (09:55→22:34)
[2021-08-19] MEDS: ZINC GLUCONATE 50 MG TABLET PO SCH (09:55)
[2021-08-19] MEDS: METOPROLOL TARTRATE 25 MG TABLET PO SCH ×2 (10:21→22:33)
[2021-08-19] MEDS ORDERED: INSULIN GLARGINE 100 UNIT/ML SUBCUT ONE (11:00)
[2021-08-19] MEDS: APIXABAN 2.5 MG TABLET PO SCH (22:34)
[2021-08-19] MEDS: ESCITALOPRAM 10 MG TABLET PO SCH (22:34)
[2021-08-19] MEDS: ACETAMINOPHEN 325 MG TABLET PO PRN (23:57)
[2021-08-20] MEDS: ALBUTEROL/IPRATROPIUM 3 ML NEB RESP TX SCH ×7 (00:10→21:05)
[2021-08-20] MEDS: LEVOTHYROXINE 100 MCG TABLET PO SCH (05:34)
[2021-08-20] MEDS: INSULIN LISPRO 100 UNIT/ML SUBCUT SCH ×3 (05:34→18:31)
[2021-08-20] MEDS: CHOLECALCIFEROL 1,000 UNIT TABLET PO SCH (08:40)
[2021-08-20] MEDS: INSULIN GLARGINE 100 UNIT/ML SUBCUT SCH (08:40)
[2021-08-20] MEDS: AMIODARONE 200 MG TABLET PO SCH ×2 (08:40→21:34)
[2021-08-20] MEDS: SODIUM CHLORIDE 1 GM TABLET PO SCH (08:40)
[2021-08-20] MEDS: ISOSORBIDE DINITRATE 10 MG TABLET PO SCH ×3 (08:40→21:34)
[2021-08-20] MEDS: ASPIRIN CHEW 81 MG TABLET PO SCH (08:40)
[2021-08-20] MEDS: APIXABAN 2.5 MG TABLET PO SCH ×2 (08:40→21:34)
[2021-08-20] MEDS: METOPROLOL TARTRATE 25 MG TABLET PO SCH ×2 (08:40→21:34)
[2021-08-20] MEDS: NYSTATIN 500,000 UNIT/5 ML UDCUP SWISH/SWAL SCH ×4 (08:40→21:35)
[2021-08-20] MEDS: predniSONE 20 MG TABLET PEG SCH ×2 (08:40→21:34)
[2021-08-20] MEDS: buPROPion 75 MG TABLET PO SCH ×2 (08:40→21:34)
[2021-08-20] MEDS: ATORVASTATIN 40 MG TABLET PO SCH (08:40)
[2021-08-20] MEDS: MENTHOL/ZINC OXIDE OINT 71 GM JAR TOP SCH ×2 (08:40→21:35)
[2021-08-20] MEDS: FAMOTIDINE 8 MG/ML 50 ML/BOTTLE PEG SCH (08:40)
[2021-08-20] MEDS: ESCITALOPRAM 10 MG TABLET PO SCH (21:35)
[2021-08-20] MEDS: ACETAMINOPHEN 325 MG TABLET PO PRN (21:51)
[2021-08-21] MEDS: ALBUTEROL/IPRATROPIUM 3 ML NEB RESP TX SCH ×9 (00:05→22:43)
[2021-08-21] MEDS: INSULIN LISPRO 100 UNIT/ML SUBCUT SCH ×4 (00:20→18:11)
[2021-08-21] MEDS: LEVOTHYROXINE 100 MCG TABLET PO SCH (05:55)
[2021-08-21 08:41] LABS: Hematocrit 29.6 VOL% (35.7-47.0); Hemoglobin 9.6 GM/DL (12.0-16.0); Immature Granulocytes % 0.7 %; Immature Granulocytes Absolute 0.05 #; Lymphocytes # 0.1 10*3/uL (1.4-4.0); Lymphocytes % 1.3 % (21.3-54.2); Mean Corpuscular HGB Conc 32.4 GM/DL (32-36); Mean Corpuscular Volume 93.4 FL (87-102); Monocytes % 3.9 % (1.7-12.7); Neutrophils % 94.1 % (38.7-73.9); Platelet Count 85 T/CUMM (130-400); Red Blood Count 3.17 MC/CUMM (3.8-5.5); Red Cell Distribution Width 17.3 % (9.3-17.3); White Blood Count 7.5 T/CUMM (4-12)
[2021-08-21 08:57] LABS: Calcium 8.6 MG/DL (8.5-10.1); Osmolality,Calculated 281.1 MOS/KG (273-304); Potassium 3.4 MMOL/L (3.5-5.1)
[2021-08-21 09:00] LABS: Band Neutrophils 2 % (0-10); Hypochromia Slight; Lymphocytes 1 % (20-55); Microcytosis 1+; Segmented Neutrophils 93 % (50-85); Total Cells Counted 100
[2021-08-21 09:01] LABS: Ovalocytes Slight; Platelet Estimate Decreased
[2021-08-21 11:26] LABS: Hepatitis B Surface Ag Quant < 0.10 Index; Hepatitis B Surface Ag Result Non-Reactive (NonReactive)
[2021-08-21] MEDS: METOPROLOL TARTRATE 25 MG TABLET PO SCH ×2 (12:15→22:06)
[2021-08-21] MEDS: AMIODARONE 200 MG TABLET PO SCH ×2 (12:15→22:07)
[2021-08-21] MEDS: ASPIRIN CHEW 81 MG TABLET PO SCH (12:15)
[2021-08-21] MEDS: MENTHOL/ZINC OXIDE OINT 71 GM JAR TOP SCH ×2 (12:15→22:07)
[2021-08-21] MEDS: SODIUM CHLORIDE 1 GM TABLET PO SCH (12:15)
[2021-08-21] MEDS: FAMOTIDINE 8 MG/ML 50 ML/BOTTLE PEG SCH (12:15)
[2021-08-21] MEDS: predniSONE 20 MG TABLET PEG SCH ×2 (12:15→22:06)
[2021-08-21] MEDS: buPROPion 75 MG TABLET PO SCH ×2 (12:15→22:06)
[2021-08-21] MEDS: CHOLECALCIFEROL 1,000 UNIT TABLET PO SCH (12:15)
[2021-08-21] MEDS: APIXABAN 2.5 MG TABLET PO SCH ×2 (12:15→22:07)
[2021-08-21] MEDS: ATORVASTATIN 40 MG TABLET PO SCH (12:15)
[2021-08-21] MEDS: NYSTATIN 500,000 UNIT/5 ML UDCUP SWISH/SWAL SCH ×4 (12:15→22:06)
[2021-08-21] MEDS: ISOSORBIDE DINITRATE 10 MG TABLET PO SCH ×3 (12:15→22:06)
[2021-08-21] MEDS: INSULIN GLARGINE 100 UNIT/ML SUBCUT SCH (12:46)
[2021-08-21] MEDS: ESCITALOPRAM 10 MG TABLET PO SCH (22:06)
[2021-08-22] MEDS: INSULIN LISPRO 100 UNIT/ML SUBCUT SCH ×4 (00:26→18:40)
[2021-08-22] MEDS: ALBUTEROL/IPRATROPIUM 3 ML NEB RESP TX SCH ×5 (03:46→19:40)
[2021-08-22] MEDS: LEVOTHYROXINE 100 MCG TABLET PO SCH (05:37)
[2021-08-22 05:52] LABS: Hemoglobin 8.5 GM/DL (12.0-16.0); Immature Granulocytes % 0.9 %; Immature Granulocytes Absolute 0.05 #; Lymphocytes # 0.1 10*3/uL (1.4-4.0); Lymphocytes % 1.7 % (21.3-54.2); Mean Corpuscular HGB Conc 31.5 GM/DL (32-36); Mean Corpuscular Volume 95.1 FL (87-102); Mean Platelet Volume 10.4 FL (9.6-12.0); Monocytes % 5.6 % (1.7-12.7); Neutrophils % 91.8 % (38.7-73.9); Platelet Count 75 T/CUMM (130-400); Red Blood Count 2.84 MC/CUMM (3.8-5.5); Red Cell Distribution Width 17.3 % (9.3-17.3); White Blood Count 5.8 T/CUMM (4-12)
[2021-08-22 06:06] LABS: Calcium 8.8 MG/DL (8.5-10.1); Osmolality,Calculated 287.4 MOS/KG (273-304); Potassium 3.9 MMOL/L (3.5-5.1)
[2021-08-22 06:14] LABS: Lymphocytes 4 % (20-55); Segmented Neutrophils 93 % (50-85); Total Cells Counted 100
[2021-08-22 06:15] LABS: Hypochromia Slight; Microcytosis 1+; Ovalocytes Slight; Platelet Estimate Decreased; Tear Drop Cells Slight
[2021-08-22] MEDS: ISOSORBIDE DINITRATE 10 MG TABLET PO SCH ×3 (09:59→22:52)
[2021-08-22] MEDS: ATORVASTATIN 40 MG TABLET PO SCH (09:59)
[2021-08-22] MEDS: AMIODARONE 200 MG TABLET PO SCH ×2 (09:59→22:51)
[2021-08-22] MEDS: buPROPion 75 MG TABLET PO SCH ×2 (10:00→22:51)
[2021-08-22] MEDS: METOPROLOL TARTRATE 25 MG TABLET PO SCH ×2 (10:00→22:51)
[2021-08-22] MEDS: NYSTATIN 500,000 UNIT/5 ML UDCUP SWISH/SWAL SCH ×4 (10:00→22:51)
[2021-08-22] MEDS: predniSONE 20 MG TABLET PEG SCH (10:00)
[2021-08-22] MEDS: CHOLECALCIFEROL 1,000 UNIT TABLET PO SCH (10:00)
[2021-08-22] MEDS: ASPIRIN CHEW 81 MG TABLET PO SCH (10:00)
[2021-08-22] MEDS: APIXABAN 2.5 MG TABLET PO SCH (10:00)
[2021-08-22] MEDS: INSULIN GLARGINE 100 UNIT/ML SUBCUT SCH (10:01)
[2021-08-22] MEDS: MENTHOL/ZINC OXIDE OINT 71 GM JAR TOP SCH ×2 (10:01→22:52)
[2021-08-22] MEDS: FAMOTIDINE 8 MG/ML 50 ML/BOTTLE PEG SCH (10:02)
[2021-08-22] MEDS ORDERED: FUROSEMIDE 40 MG/4 ML VIAL IV ONE (17:23)
[2021-08-22 22:47] LABS: INR 0.9; PT Patient Result 10.3 SECS (10.5-12.0); Partial Thromboplastin Time 20.1 SECS (23.8-32.1)
[2021-08-22] MEDS: ESCITALOPRAM 10 MG TABLET PO SCH (22:51)
[2021-08-22] MEDS: NIFEdipine 10 MG CAPSULE PO SCH (22:51)
[2021-08-23] MEDS: INSULIN LISPRO 100 UNIT/ML SUBCUT SCH ×4 (00:20→17:54)
[2021-08-23] MEDS: ALBUTEROL/IPRATROPIUM 3 ML NEB RESP TX SCH ×7 (03:00→23:37)
[2021-08-23] MEDS: LEVOTHYROXINE 100 MCG TABLET PO SCH (05:36)
[2021-08-23] MEDS: CHOLECALCIFEROL 1,000 UNIT TABLET PO SCH (10:04)
[2021-08-23] MEDS: NYSTATIN 500,000 UNIT/5 ML UDCUP SWISH/SWAL SCH ×4 (10:04→22:19)
[2021-08-23] MEDS: ISOSORBIDE DINITRATE 10 MG TABLET PO SCH ×3 (10:04→22:20)
[2021-08-23] MEDS: predniSONE 20 MG TABLET PEG SCH (10:05)
[2021-08-23] MEDS: METOPROLOL TARTRATE 25 MG TABLET PO SCH ×2 (10:05→22:19)
[2021-08-23] MEDS: NIFEdipine 10 MG CAPSULE PO SCH ×3 (10:05→22:19)
[2021-08-23] MEDS: ATORVASTATIN 40 MG TABLET PO SCH (10:05)
[2021-08-23] MEDS: ASPIRIN CHEW 81 MG TABLET PO SCH (10:05)
[2021-08-23] MEDS: AMIODARONE 200 MG TABLET PO SCH ×2 (10:05→22:20)
[2021-08-23] MEDS: buPROPion 75 MG TABLET PO SCH ×2 (10:09→22:19)
[2021-08-23] MEDS: MENTHOL/ZINC OXIDE OINT 71 GM JAR TOP SCH ×2 (10:09→22:19)
[2021-08-23] MEDS: FAMOTIDINE 8 MG/ML 50 ML/BOTTLE PEG SCH (10:10)
[2021-08-23] MEDS: INSULIN GLARGINE 100 UNIT/ML SUBCUT SCH (10:34)
[2021-08-23 14:59] LABS: Glucose,Pleural Fluid 158 MG/DL; LDH,Body Fluid 121 U/L
[2021-08-23 16:23] LABS: Lymphocytes,Pleural Fluid 69 %; Monocytes,Pleural Fluid 2 %; Neutrophils,Pleural Fluid 29 %
[2021-08-23 16:24] LABS: RBC,Pleural Fluid 45 T/CUMM
[2021-08-23] MEDS: ESCITALOPRAM 10 MG TABLET PO SCH (22:19)
[2021-08-24] MEDS: INSULIN LISPRO 100 UNIT/ML SUBCUT SCH ×4 (00:54→17:00)
[2021-08-24] MEDS: ALBUTEROL/IPRATROPIUM 3 ML NEB RESP TX SCH ×5 (03:08→19:10)
[2021-08-24] MEDS: LEVOTHYROXINE 100 MCG TABLET PO SCH (08:06)
[2021-08-24] MEDS: CHOLECALCIFEROL 1,000 UNIT TABLET PO SCH (09:11)
[2021-08-24] MEDS: INSULIN GLARGINE 100 UNIT/ML SUBCUT SCH (09:11)
[2021-08-24] MEDS: ASPIRIN CHEW 81 MG TABLET PO SCH (09:11)
[2021-08-24] MEDS: METOPROLOL TARTRATE 25 MG TABLET PO SCH ×2 (09:12→22:12)
[2021-08-24] MEDS: AMIODARONE 200 MG TABLET PO SCH ×2 (09:12→22:12)
[2021-08-24] MEDS: NIFEdipine 10 MG CAPSULE PO SCH ×3 (09:12→22:12)
[2021-08-24] MEDS: ATORVASTATIN 40 MG TABLET PO SCH (09:12)
[2021-08-24] MEDS: FAMOTIDINE 8 MG/ML 50 ML/BOTTLE PEG SCH (09:12)
[2021-08-24] MEDS: predniSONE 20 MG TABLET PEG SCH (09:12)
[2021-08-24] MEDS: buPROPion 75 MG TABLET PO SCH ×2 (09:12→22:12)
[2021-08-24] MEDS: ISOSORBIDE DINITRATE 10 MG TABLET PO SCH ×3 (09:12→22:11)
[2021-08-24] MEDS: NYSTATIN 500,000 UNIT/5 ML UDCUP SWISH/SWAL SCH ×4 (09:12→22:12)
[2021-08-24] MEDS: MENTHOL/ZINC OXIDE OINT 71 GM JAR TOP SCH ×2 (09:13→22:11)
[2021-08-24] MEDS: ESCITALOPRAM 10 MG TABLET PO SCH (22:12)
[2021-08-25] MEDS: ALBUTEROL/IPRATROPIUM 3 ML NEB RESP TX SCH ×6 (00:35→19:55)
[2021-08-25] MEDS: INSULIN LISPRO 100 UNIT/ML SUBCUT SCH ×4 (01:05→17:05)
[2021-08-25] MEDS: LEVOTHYROXINE 100 MCG TABLET PO SCH (06:54)
[2021-08-25] MEDS: predniSONE 20 MG TABLET PEG SCH (10:03)
[2021-08-25] MEDS: NIFEdipine 10 MG CAPSULE PO SCH ×3 (10:03→23:32)
[2021-08-25] MEDS: NYSTATIN 500,000 UNIT/5 ML UDCUP SWISH/SWAL SCH ×4 (10:03→23:31)
[2021-08-25] MEDS: METOPROLOL TARTRATE 25 MG TABLET PO SCH ×2 (10:04→23:32)
[2021-08-25] MEDS: ATORVASTATIN 40 MG TABLET PO SCH (10:04)
[2021-08-25] MEDS: ISOSORBIDE DINITRATE 10 MG TABLET PO SCH ×3 (10:04→23:32)
[2021-08-25] MEDS: buPROPion 75 MG TABLET PO SCH ×2 (10:04→23:31)
[2021-08-25] MEDS: MENTHOL/ZINC OXIDE OINT 71 GM JAR TOP SCH ×2 (10:04→23:32)
[2021-08-25] MEDS: ASPIRIN CHEW 81 MG TABLET PO SCH (10:04)
[2021-08-25] MEDS: CHOLECALCIFEROL 1,000 UNIT TABLET PO SCH (10:04)
[2021-08-25] MEDS: INSULIN GLARGINE 100 UNIT/ML SUBCUT SCH (10:05)
[2021-08-25] MEDS: AMIODARONE 200 MG TABLET PO SCH ×2 (10:05→23:32)
[2021-08-25] MEDS: FAMOTIDINE 8 MG/ML 50 ML/BOTTLE PEG SCH (10:06)
[2021-08-25] MEDS: ESCITALOPRAM 10 MG TABLET PO SCH (23:32)
[2021-08-26] MEDS: ALBUTEROL/IPRATROPIUM 3 ML NEB RESP TX SCH ×6 (00:23→19:38)
[2021-08-26 06:35] LABS: Hematocrit 24.5 VOL% (35.7-47.0); Hemoglobin 7.8 GM/DL (12.0-16.0); Immature Granulocytes % 1.1 %; Immature Granulocytes Absolute 0.03 #; Lymphocytes # 0.2 10*3/uL (1.4-4.0); Lymphocytes % 5.8 % (21.3-54.2); Mean Corpuscular HGB Conc 31.8 GM/DL (32-36); Mean Corpuscular Volume 94.2 FL (87-102); Mean Platelet Volume 10.5 FL (9.6-12.0); Monocytes % 10.8 % (1.7-12.7); Neutrophils % 82.3 % (38.7-73.9); Red Cell Distribution Width 17.4 % (9.3-17.3); White Blood Count 2.8 T/CUMM (4-12)
[2021-08-26 06:52] LABS: Platelet Count 74 T/CUMM (130-400)
[2021-08-26 06:53] LABS: Calcium 8.7 MG/DL (8.5-10.1); Osmolality,Calculated 294.2 MOS/KG (273-304)
[2021-08-26 06:57] LABS: Hypochromia 1+; Lymphocytes 7 % (20-55); Microcytosis 1+; Platelet Estimate Decreased; Segmented Neutrophils 87 % (50-85); Total Cells Counted 100
[2021-08-26] MEDS: INSULIN LISPRO 100 UNIT/ML SUBCUT SCH ×3 (06:57→18:48)
[2021-08-26] MEDS: LEVOTHYROXINE 100 MCG TABLET PO SCH (07:14)
[2021-08-26] MEDS: ASPIRIN CHEW 81 MG TABLET PO SCH (10:50)
[2021-08-26] MEDS: buPROPion 75 MG TABLET PO SCH ×2 (10:50→22:41)
[2021-08-26] MEDS: predniSONE 20 MG TABLET PEG SCH (10:50)
[2021-08-26] MEDS: METOPROLOL TARTRATE 25 MG TABLET PO SCH ×2 (10:50→22:41)
[2021-08-26] MEDS: CHOLECALCIFEROL 1,000 UNIT TABLET PO SCH (10:50)
[2021-08-26] MEDS: MENTHOL/ZINC OXIDE OINT 71 GM JAR TOP SCH ×2 (10:50→22:43)
[2021-08-26] MEDS: INSULIN GLARGINE 100 UNIT/ML SUBCUT SCH (10:50)
[2021-08-26] MEDS: AMIODARONE 200 MG TABLET PO SCH ×2 (10:51→22:41)
[2021-08-26] MEDS: ATORVASTATIN 40 MG TABLET PO SCH (10:51)
[2021-08-26] MEDS: NIFEdipine 10 MG CAPSULE PO SCH ×3 (10:51→22:41)
[2021-08-26] MEDS: NYSTATIN 500,000 UNIT/5 ML UDCUP SWISH/SWAL SCH ×4 (10:51→22:42)
[2021-08-26] MEDS: ISOSORBIDE DINITRATE 10 MG TABLET PO SCH ×3 (10:51→22:41)
[2021-08-26] MEDS: FAMOTIDINE 8 MG/ML 50 ML/BOTTLE PEG SCH (10:55)
[2021-08-26] MEDS ORDERED: SODIUM CHLORIDE 0.9% 500 ML IV ONE (12:09)
[2021-08-26] MEDS: ESCITALOPRAM 10 MG TABLET PO SCH (22:41)
[2021-08-27] MEDS: ALBUTEROL/IPRATROPIUM 3 ML NEB RESP TX SCH ×6 (01:13→20:08)
[2021-08-27 05:23] LABS: Hematocrit 22.7 VOL% (35.7-47.0); Hemoglobin 7.2 GM/DL (12.0-16.0); Immature Granulocytes % 0.3 %; Immature Granulocytes Absolute 0.01 #; Lymphocytes # 0.2 10*3/uL (1.4-4.0); Lymphocytes % 6.2 % (21.3-54.2); Mean Corpuscular HGB Conc 31.7 GM/DL (32-36); Mean Corpuscular Volume 94.6 FL (87-102); Mean Platelet Volume 10.9 FL (9.6-12.0); Neutrophils % 84.5 % (38.7-73.9); Platelet Count 79 T/CUMM (130-400); Red Cell Distribution Width 17.1 % (9.3-17.3); White Blood Count 3.2 T/CUMM (4-12)
[2021-08-27 05:34] LABS: Calcium 8.9 MG/DL (8.5-10.1); Osmolality,Calculated 282.2 MOS/KG (273-304); Potassium 3.7 MMOL/L (3.5-5.1)
[2021-08-27] MEDS: INSULIN LISPRO 100 UNIT/ML SUBCUT SCH ×4 (05:43→17:43)
[2021-08-27] MEDS: LEVOTHYROXINE 100 MCG TABLET PO SCH (05:44)
[2021-08-27 05:53] LABS: Hypochromia 1+; Lymphocytes 5 % (20-55); Microcytosis 1+; Platelet Estimate Decreased; Segmented Neutrophils 84 % (50-85); Total Cells Counted 100
[2021-08-27] MEDS: FAMOTIDINE 8 MG/ML 50 ML/BOTTLE PEG SCH (09:56)
[2021-08-27] MEDS: ATORVASTATIN 40 MG TABLET PO SCH (09:57)
[2021-08-27] MEDS: NIFEdipine 10 MG CAPSULE PO SCH ×3 (09:57→21:49)
[2021-08-27] MEDS: ASPIRIN CHEW 81 MG TABLET PO SCH (09:57)
[2021-08-27] MEDS: buPROPion 75 MG TABLET PO SCH ×2 (09:57→21:49)
[2021-08-27] MEDS: predniSONE 20 MG TABLET PEG SCH (09:57)
[2021-08-27] MEDS: NYSTATIN 500,000 UNIT/5 ML UDCUP SWISH/SWAL SCH ×4 (09:57→21:48)
[2021-08-27] MEDS: METOPROLOL TARTRATE 25 MG TABLET PO SCH ×2 (09:57→21:48)
[2021-08-27] MEDS: AMIODARONE 200 MG TABLET PO SCH ×2 (09:57→21:48)
[2021-08-27] MEDS: ISOSORBIDE DINITRATE 10 MG TABLET PO SCH ×3 (09:57→21:51)
[2021-08-27] MEDS: CHOLECALCIFEROL 1,000 UNIT TABLET PO SCH (09:57)
[2021-08-27] MEDS: MENTHOL/ZINC OXIDE OINT 71 GM JAR TOP SCH ×2 (09:57→22:05)
[2021-08-27] MEDS: INSULIN GLARGINE 100 UNIT/ML SUBCUT SCH (10:10)
[2021-08-27] MEDS: ESCITALOPRAM 10 MG TABLET PO SCH (21:48)
[2021-08-28] MEDS: INSULIN LISPRO 100 UNIT/ML SUBCUT SCH ×4 (00:01→18:38)
[2021-08-28] MEDS: ALBUTEROL/IPRATROPIUM 3 ML NEB RESP TX SCH ×6 (00:45→20:08)
[2021-08-28] MEDS: LEVOTHYROXINE 100 MCG TABLET PO SCH (05:38)
[2021-08-28 05:39] LABS: Calcium 8.7 MG/DL (8.5-10.1); Potassium 4.5 MMOL/L (3.5-5.1)
[2021-08-28] MEDS ORDERED: EPOETIN ALFA-EPBX 2,000 UNIT/ML VIAL SUBCUT ONE (08:30)
[2021-08-28] MEDS: ISOSORBIDE DINITRATE 10 MG TABLET PO SCH ×3 (11:20→21:58)
[2021-08-28] MEDS: NIFEdipine 10 MG CAPSULE PO SCH ×3 (11:20→22:03)
[2021-08-28] MEDS: CHOLECALCIFEROL 1,000 UNIT TABLET PO SCH (11:28)
[2021-08-28] MEDS: predniSONE 20 MG TABLET PEG SCH (11:28)
[2021-08-28] MEDS: ATORVASTATIN 40 MG TABLET PO SCH (11:28)
[2021-08-28] MEDS: METOPROLOL TARTRATE 25 MG TABLET PO SCH ×2 (11:28→21:58)
[2021-08-28] MEDS: buPROPion 75 MG TABLET PO SCH ×2 (11:28→21:58)
[2021-08-28] MEDS: AMIODARONE 200 MG TABLET PO SCH ×2 (11:28→21:58)
[2021-08-28] MEDS: ASPIRIN CHEW 81 MG TABLET PO SCH (11:29)
[2021-08-28] MEDS: NYSTATIN 500,000 UNIT/5 ML UDCUP SWISH/SWAL SCH ×4 (11:29→21:58)
[2021-08-28] MEDS: FAMOTIDINE 8 MG/ML 50 ML/BOTTLE PEG SCH (11:30)
[2021-08-28] MEDS: INSULIN GLARGINE 100 UNIT/ML SUBCUT SCH (11:35)
[2021-08-28] MEDS: MENTHOL/ZINC OXIDE OINT 71 GM JAR TOP SCH ×2 (11:37→21:30)
[2021-08-28] MEDS: ESCITALOPRAM 10 MG TABLET PO SCH (21:58)
[2021-08-29] MEDS: ALBUTEROL/IPRATROPIUM 3 ML NEB RESP TX SCH ×6 (00:33→19:30)
[2021-08-29] MEDS: INSULIN LISPRO 100 UNIT/ML SUBCUT SCH ×4 (01:49→18:43)
[2021-08-29] MEDS: ONDANSETRON 4 MG/2 ML VIAL IV PRN ×2 (04:06→14:47)
[2021-08-29] MEDS: PIPERACILLIN/TAZOBACTAM 3,375 MG in SODIUM CHLORIDE 0.9% 100 ML IV SCH ×3 (04:58→22:47)
[2021-08-29 07:14] LABS: Eosinophils % 0.4 % (0.00-10.9); Hematocrit 25.5 VOL% (35.7-47.0); Hemoglobin 8.2 GM/DL (12.0-16.0); Immature Granulocytes % 0.6 %; Immature Granulocytes Absolute 0.03 #; Lymphocytes # 0.3 10*3/uL (1.4-4.0); Lymphocytes % 6.4 % (21.3-54.2); Mean Corpuscular HGB Conc 32.2 GM/DL (32-36); Mean Corpuscular Volume 93.1 FL (87-102); Mean Platelet Volume 10.4 FL (9.6-12.0); Neutrophils % 82.6 % (38.7-73.9); Platelet Count 107 T/CUMM (130-400); Red Blood Count 2.74 MC/CUMM (3.8-5.5); Red Cell Distribution Width 17.3 % (9.3-17.3); White Blood Count 5.1 T/CUMM (4-12)
[2021-08-29 07:24] LABS: Potassium 3.8 MMOL/L (3.5-5.1)
[2021-08-29 07:36] LABS: Hypochromia 1+; Lymphocytes 5 % (20-55); Microcytosis 1+; Platelet Estimate Decreased; Segmented Neutrophils 87 % (50-85); Total Cells Counted 100
[2021-08-29] MEDS: ASPIRIN CHEW 81 MG TABLET PO SCH (09:38)
[2021-08-29] MEDS: INSULIN GLARGINE 100 UNIT/ML SUBCUT SCH (09:38)
[2021-08-29] MEDS: predniSONE 20 MG TABLET PEG SCH (09:38)
[2021-08-29] MEDS: CHOLECALCIFEROL 1,000 UNIT TABLET PO SCH (09:38)
[2021-08-29] MEDS: NIFEdipine 10 MG CAPSULE PO SCH ×3 (09:39→22:48)
[2021-08-29] MEDS: ISOSORBIDE DINITRATE 10 MG TABLET PO SCH ×3 (09:39→22:48)
[2021-08-29] MEDS: ATORVASTATIN 40 MG TABLET PO SCH (09:39)
[2021-08-29] MEDS: METOPROLOL TARTRATE 25 MG TABLET PO SCH ×2 (09:39→22:48)
[2021-08-29] MEDS: buPROPion 75 MG TABLET PO SCH ×2 (09:39→22:48)
[2021-08-29] MEDS: AMIODARONE 200 MG TABLET PO SCH ×2 (09:39→22:48)
[2021-08-29] MEDS: NYSTATIN 500,000 UNIT/5 ML UDCUP SWISH/SWAL SCH ×4 (09:39→22:48)
[2021-08-29] MEDS: MENTHOL/ZINC OXIDE OINT 71 GM JAR TOP SCH ×2 (09:40→22:48)
[2021-08-29] MEDS: FAMOTIDINE 8 MG/ML 50 ML/BOTTLE PEG SCH (09:48)
[2021-08-29] MEDS: LEVOTHYROXINE 100 MCG TABLET PO SCH (09:48)
[2021-08-29] MEDS: ESCITALOPRAM 10 MG TABLET PO SCH (22:48)
[2021-08-30] MEDS: ALBUTEROL/IPRATROPIUM 3 ML NEB RESP TX SCH ×6 (00:30→20:17)
[2021-08-30] MEDS: INSULIN LISPRO 100 UNIT/ML SUBCUT SCH ×4 (00:58→17:54)
[2021-08-30 05:09] LABS: Hematocrit 20.1 VOL% (35.7-47.0); Immature Granulocytes % 0.5 %; Immature Granulocytes Absolute 0.02 #; Lymphocytes # 0.2 10*3/uL (1.4-4.0); Lymphocytes % 4.4 % (21.3-54.2); Mean Corpuscular HGB Conc 30.8 GM/DL (32-36); Mean Corpuscular Volume 95.7 FL (87-102); Mean Platelet Volume 10.2 FL (9.6-12.0); Neutrophils % 89.1 % (38.7-73.9); Platelet Count 78 T/CUMM (130-400); Red Cell Distribution Width 17.7 % (9.3-17.3); White Blood Count 3.9 T/CUMM (4-12)
[2021-08-30 05:12] LABS: Hemoglobin 6.2 GM/DL (12.0-16.0)
[2021-08-30] MEDS ORDERED: SODIUM CHLORIDE 0.9% 1,000 ML IV PRN (05:22)
[2021-08-30 05:32] LABS: Band Neutrophils 2 % (0-10); Hypochromia 1+; Lymphocytes 4 % (20-55); Microcytosis 1+; Platelet Estimate Decreased; Segmented Neutrophils 89 % (50-85); Total Cells Counted 100
[2021-08-30 05:36] LABS: Albumin 1.8 G/DL (3.4-5.0); Bilirubin,Total 1.1 MG/DL (0.20-1.00); Osmolality,Calculated 292.2 MOS/KG (273-304); Potassium 4.1 MMOL/L (3.5-5.1); Total Protein 4.8 G/DL (6.4-8.2)
[2021-08-30] MEDS: LEVOTHYROXINE 100 MCG TABLET PO SCH (06:28)
[2021-08-30] MEDS: PIPERACILLIN/TAZOBACTAM 3,375 MG in SODIUM CHLORIDE 0.9% 100 ML IV SCH ×3 (06:31→22:28)
[2021-08-30] MEDS: FAMOTIDINE 8 MG/ML 50 ML/BOTTLE PEG SCH (13:36)
[2021-08-30] MEDS: predniSONE 20 MG TABLET PEG SCH (13:36)
[2021-08-30] MEDS: ASPIRIN CHEW 81 MG TABLET PO SCH (13:36)
[2021-08-30] MEDS: ISOSORBIDE DINITRATE 10 MG TABLET PO SCH ×3 (13:36→22:26)
[2021-08-30] MEDS: NIFEdipine 10 MG CAPSULE PO SCH ×3 (13:36→22:28)
[2021-08-30] MEDS: CHOLECALCIFEROL 1,000 UNIT TABLET PO SCH (13:36)
[2021-08-30] MEDS: MENTHOL/ZINC OXIDE OINT 71 GM JAR TOP SCH ×2 (13:36→22:26)
[2021-08-30] MEDS: AMIODARONE 200 MG TABLET PO SCH ×2 (13:37→22:26)
[2021-08-30] MEDS: NYSTATIN 500,000 UNIT/5 ML UDCUP SWISH/SWAL SCH ×4 (13:37→22:28)
[2021-08-30] MEDS: INSULIN GLARGINE 100 UNIT/ML SUBCUT SCH (13:37)
[2021-08-30] MEDS: METOPROLOL TARTRATE 25 MG TABLET PO SCH ×2 (13:37→22:28)
[2021-08-30] MEDS: ATORVASTATIN 40 MG TABLET PO SCH (13:37)
[2021-08-30] MEDS: buPROPion 75 MG TABLET PO SCH ×2 (13:38→22:28)
[2021-08-30 17:11] LABS: Hematocrit 30.7 VOL% (35.7-47.0)
[2021-08-30 17:12] LABS: Hemoglobin 9.8 GM/DL (12.0-16.0)
[2021-08-30] MEDS: ESCITALOPRAM 10 MG TABLET PO SCH (22:27)
[2021-08-31] MEDS: ALBUTEROL/IPRATROPIUM 3 ML NEB RESP TX SCH ×7 (00:26→23:37)
[2021-08-31] MEDS: INSULIN LISPRO 100 UNIT/ML SUBCUT SCH ×5 (05:14→23:35)
[2021-08-31 06:08] LABS: Calcium 8.7 MG/DL (8.5-10.1); Osmolality,Calculated 289.7 MOS/KG (273-304); Potassium 4.6 MMOL/L (3.5-5.1)
[2021-08-31] MEDS: PIPERACILLIN/TAZOBACTAM 3,375 MG in SODIUM CHLORIDE 0.9% 100 ML IV SCH ×3 (06:25→23:35)
[2021-08-31] MEDS: LEVOTHYROXINE 100 MCG TABLET PO SCH (06:26)
[2021-08-31 08:32] LABS: Eosinophils % 0.2 % (0.00-10.9); Hematocrit 29.2 VOL% (35.7-47.0); Hemoglobin 9.3 GM/DL (12.0-16.0); Immature Granulocytes % 0.7 %; Immature Granulocytes Absolute 0.03 #; Lymphocytes # 0.2 10*3/uL (1.4-4.0); Lymphocytes % 4.6 % (21.3-54.2); Mean Corpuscular HGB Conc 31.8 GM/DL (32-36); Mean Corpuscular Volume 90.7 FL (87-102); Mean Platelet Volume 10.1 FL (9.6-12.0); Neutrophils % 89.5 % (38.7-73.9); Platelet Count 72 T/CUMM (130-400); Red Blood Count 3.22 MC/CUMM (3.8-5.5); Red Cell Distribution Width 17.5 % (9.3-17.3); White Blood Count 4.4 T/CUMM (4-12)
[2021-08-31] MEDS: INSULIN GLARGINE 100 UNIT/ML SUBCUT SCH (09:19)
[2021-08-31] MEDS: MENTHOL/ZINC OXIDE OINT 71 GM JAR TOP SCH ×2 (09:19→21:43)
[2021-08-31] MEDS: ATORVASTATIN 40 MG TABLET PO SCH (09:19)
[2021-08-31] MEDS: ISOSORBIDE DINITRATE 10 MG TABLET PO SCH ×3 (09:19→21:42)
[2021-08-31] MEDS: ASPIRIN CHEW 81 MG TABLET PO SCH (09:19)
[2021-08-31] MEDS: AMIODARONE 200 MG TABLET PO SCH ×2 (09:20→21:42)
[2021-08-31] MEDS: NYSTATIN 500,000 UNIT/5 ML UDCUP SWISH/SWAL SCH ×4 (09:20→21:43)
[2021-08-31] MEDS: predniSONE 20 MG TABLET PEG SCH (09:20)
[2021-08-31] MEDS: METOPROLOL TARTRATE 25 MG TABLET PO SCH ×2 (09:20→21:43)
[2021-08-31] MEDS: buPROPion 75 MG TABLET PO SCH ×2 (09:20→21:43)
[2021-08-31] MEDS: CHOLECALCIFEROL 1,000 UNIT TABLET PO SCH (09:20)
[2021-08-31] MEDS: NIFEdipine 10 MG CAPSULE PO SCH ×3 (09:20→21:43)
[2021-08-31] MEDS: FAMOTIDINE 8 MG/ML 50 ML/BOTTLE PEG SCH (09:21)
[2021-08-31 09:32] LABS: Hypochromia Slight; Lymphocytes 6 % (20-55); Platelet Estimate Decreased; Polychromasia Slight; Segmented Neutrophils 91 % (50-85); Total Cells Counted 100
[2021-08-31] MEDS: ESCITALOPRAM 10 MG TABLET PO SCH (21:43)
[2021-09-01] MEDS: ALBUTEROL/IPRATROPIUM 3 ML NEB RESP TX SCH ×5 (03:14→21:20)
[2021-09-01 13:15] LABS: Hemoglobin 9.1 GM/DL (12.0-16.0); Immature Granulocytes % 0.9 %; Immature Granulocytes Absolute 0.04 #; Lymphocytes # 0.2 10*3/uL (1.4-4.0); Lymphocytes % 3.4 % (21.3-54.2); Mean Corpuscular HGB Conc 31.4 GM/DL (32-36); Mean Corpuscular Volume 90.3 FL (87-102); Mean Platelet Volume 9.6 FL (9.6-12.0); Monocytes % 5.4 % (1.7-12.7); Neutrophils % 90.3 % (38.7-73.9); Platelet Count 79 T/CUMM (130-400); Red Blood Count 3.21 MC/CUMM (3.8-5.5); Red Cell Distribution Width 17.2 % (9.3-17.3); White Blood Count 4.7 T/CUMM (4-12)
[2021-09-01] MEDS: INSULIN LISPRO 100 UNIT/ML SUBCUT SCH ×3 (13:18→23:43)
[2021-09-01] MEDS: LEVOTHYROXINE 100 MCG TABLET PO SCH (13:18)
[2021-09-01] MEDS: PIPERACILLIN/TAZOBACTAM 3,375 MG in SODIUM CHLORIDE 0.9% 100 ML IV SCH ×3 (13:19→21:58)
[2021-09-01] MEDS: AMIODARONE 200 MG TABLET PO SCH ×2 (13:19→21:57)
[2021-09-01] MEDS: MENTHOL/ZINC OXIDE OINT 71 GM JAR TOP SCH ×2 (13:19→22:08)
[2021-09-01] MEDS: ASPIRIN CHEW 81 MG TABLET PO SCH (13:19)
[2021-09-01] MEDS: NYSTATIN 500,000 UNIT/5 ML UDCUP SWISH/SWAL SCH ×4 (13:20→21:58)
[2021-09-01] MEDS: METOPROLOL TARTRATE 25 MG TABLET PO SCH ×2 (13:20→21:57)
[2021-09-01] MEDS: ISOSORBIDE DINITRATE 10 MG TABLET PO SCH ×3 (13:20→21:57)
[2021-09-01] MEDS: FAMOTIDINE 8 MG/ML 50 ML/BOTTLE PEG SCH (13:20)
[2021-09-01] MEDS: INSULIN GLARGINE 100 UNIT/ML SUBCUT SCH (13:20)
[2021-09-01] MEDS: ATORVASTATIN 40 MG TABLET PO SCH (13:20)
[2021-09-01] MEDS: predniSONE 20 MG TABLET PEG SCH (13:21)
[2021-09-01] MEDS: buPROPion 75 MG TABLET PO SCH ×2 (13:21→21:57)
[2021-09-01] MEDS: CHOLECALCIFEROL 1,000 UNIT TABLET PO SCH (13:21)
[2021-09-01] MEDS: NIFEdipine 10 MG CAPSULE PO SCH ×3 (13:21→22:02)
[2021-09-01 13:39] LABS: Alanine Aminotransferase 138 U/L (13-56); Albumin 1.9 G/DL (3.4-5.0); Alkaline Phosphatase 264 U/L (45-117); Aspartate Amino Transferase 49 U/L (0-37); Bilirubin,Total < 0.39 MG/DL (0.20-1.00); Calcium 8.4 MG/DL (8.5-10.1); Total Protein 5.1 G/DL (6.4-8.2)
[2021-09-01 13:40] LABS: Blood Urea Nitrogen 66 MG/DL (7-18); Carbon Dioxide 27 MMOL/L (21-32); Estimated Glom Filtration Rate 27 ML/MIN; Glucose 142 MG/DL (74-106); Osmolality,Calculated 293.8 MOS/KG (273-304); Sodium 137 MMOL/L (136-145)
[2021-09-01 14:01] LABS: Anisocytosis 1+; Band Neutrophils 4 % (0-10); Basophilic Stippling Slight; Eosinophils 2 % (0-10); Lymphocytes 8 % (20-55); Segmented Neutrophils 82 % (50-85); Total Cells Counted 100
[2021-09-01 14:02] LABS: Macrocytosis Slight; Ovalocytes Few; Platelet Estimate Decreased
[2021-09-01] MEDS: ESCITALOPRAM 10 MG TABLET PO SCH (21:59)
[2021-09-02] MEDS: ALBUTEROL/IPRATROPIUM 3 ML NEB RESP TX SCH ×7 (00:21→23:30)
[2021-09-02] MEDS: LEVOTHYROXINE 100 MCG TABLET PO SCH (05:30)
[2021-09-02] MEDS: INSULIN LISPRO 100 UNIT/ML SUBCUT SCH ×3 (05:30→17:18)
[2021-09-02] MEDS: PIPERACILLIN/TAZOBACTAM 3,375 MG in SODIUM CHLORIDE 0.9% 100 ML IV SCH ×3 (05:31→22:44)
[2021-09-02 06:15] LABS: Hematocrit 29.3 VOL% (35.7-47.0); Hemoglobin 9.3 GM/DL (12.0-16.0); Immature Granulocytes % 0.7 %; Immature Granulocytes Absolute 0.03 #; Lymphocytes # 0.2 10*3/uL (1.4-4.0); Lymphocytes % 4.2 % (21.3-54.2); Mean Corpuscular HGB Conc 31.7 GM/DL (32-36); Mean Corpuscular Volume 90.7 FL (87-102); Mean Platelet Volume 9.5 FL (9.6-12.0); Monocytes % 7.2 % (1.7-12.7); Neutrophils % 87.9 % (38.7-73.9); Platelet Count 71 T/CUMM (130-400); Red Blood Count 3.23 MC/CUMM (3.8-5.5); Red Cell Distribution Width 17.4 % (9.3-17.3); White Blood Count 4.3 T/CUMM (4-12)
[2021-09-02 06:31] LABS: Osmolality,Calculated 296.8 MOS/KG (273-304); Potassium 3.9 MMOL/L (3.5-5.1)
[2021-09-02 06:36] LABS: Hypochromia 1+; Lymphocytes 8 % (20-55); Platelet Estimate Decreased; Segmented Neutrophils 89 % (50-85); Total Cells Counted 100
[2021-09-02] MEDS: MENTHOL/ZINC OXIDE OINT 71 GM JAR TOP SCH ×2 (11:50→21:06)
[2021-09-02] MEDS: NYSTATIN 500,000 UNIT/5 ML UDCUP SWISH/SWAL SCH ×4 (11:50→21:07)
[2021-09-02] MEDS: AMIODARONE 200 MG TABLET PO SCH ×2 (11:51→21:07)
[2021-09-02] MEDS: CHOLECALCIFEROL 1,000 UNIT TABLET PO SCH (11:51)
[2021-09-02] MEDS: predniSONE 20 MG TABLET PEG SCH (11:51)
[2021-09-02] MEDS: buPROPion 75 MG TABLET PO SCH ×2 (11:51→21:07)
[2021-09-02] MEDS: METOPROLOL TARTRATE 25 MG TABLET PO SCH ×2 (11:52→21:07)
[2021-09-02] MEDS: NIFEdipine 10 MG CAPSULE PO SCH ×3 (11:52→21:07)
[2021-09-02] MEDS: ISOSORBIDE DINITRATE 10 MG TABLET PO SCH ×3 (11:52→21:06)
[2021-09-02] MEDS: ASPIRIN CHEW 81 MG TABLET PO SCH (11:52)
[2021-09-02] MEDS: ATORVASTATIN 40 MG TABLET PO SCH (11:52)
[2021-09-02] MEDS: INSULIN GLARGINE 100 UNIT/ML SUBCUT SCH (11:53)
[2021-09-02] MEDS: FAMOTIDINE 8 MG/ML 50 ML/BOTTLE PEG SCH (11:53)
[2021-09-02 16:43] LABS: Calcium 8.5 MG/DL (8.5-10.1); Osmolality,Calculated 283.8 MOS/KG (273-304); Potassium 4.3 MMOL/L (3.5-5.1)
[2021-09-02] MEDS: ESCITALOPRAM 10 MG TABLET PO SCH (21:07)
[2021-09-02] MEDS: guaiFENesin/DM ER 600-30 MG TABLET PO PRN (21:07)
[2021-09-03] MEDS: ALBUTEROL/IPRATROPIUM 3 ML NEB RESP TX SCH ×5 (03:40→20:32)
[2021-09-03] MEDS: LEVOTHYROXINE 100 MCG TABLET PO SCH (05:31)
[2021-09-03] MEDS: PIPERACILLIN/TAZOBACTAM 3,375 MG in SODIUM CHLORIDE 0.9% 100 ML IV SCH ×3 (05:31→21:31)
[2021-09-03] MEDS: INSULIN LISPRO 100 UNIT/ML SUBCUT SCH ×4 (05:40→17:11)
[2021-09-03] MEDS: AMIODARONE 200 MG TABLET PO SCH ×2 (09:49→21:26)
[2021-09-03] MEDS: buPROPion 75 MG TABLET PO SCH (09:50)
[2021-09-03] MEDS: METOPROLOL TARTRATE 25 MG TABLET PO SCH ×2 (09:50→21:26)
[2021-09-03] MEDS: ASPIRIN CHEW 81 MG TABLET PO SCH (09:50)
[2021-09-03] MEDS: predniSONE 20 MG TABLET PEG SCH (09:50)
[2021-09-03] MEDS: NIFEdipine 10 MG CAPSULE PO SCH ×3 (09:50→21:27)
[2021-09-03] MEDS: CHOLECALCIFEROL 1,000 UNIT TABLET PO SCH (09:51)
[2021-09-03] MEDS: ISOSORBIDE DINITRATE 10 MG TABLET PO SCH ×3 (09:51→21:26)
[2021-09-03] MEDS: ATORVASTATIN 40 MG TABLET PO SCH (09:51)
[2021-09-03] MEDS: NYSTATIN 500,000 UNIT/5 ML UDCUP SWISH/SWAL SCH ×4 (09:52→21:25)
[2021-09-03] MEDS: FAMOTIDINE 8 MG/ML 50 ML/BOTTLE PEG SCH (09:52)
[2021-09-03] MEDS: MENTHOL/ZINC OXIDE OINT 71 GM JAR TOP SCH ×2 (09:52→21:25)
[2021-09-03] MEDS: INSULIN GLARGINE 100 UNIT/ML SUBCUT SCH (09:56)
[2021-09-03] MEDS ORDERED: hydrALAZINE 20 MG/1 ML VIAL IV PRN (19:39)
[2021-09-03] MEDS ORDERED: METOPROLOL TARTRATE 5 MG/5 ML VIAL IV ONE (21:00)
[2021-09-03] MEDS: ESCITALOPRAM 10 MG TABLET PO SCH (21:26)
[2021-09-04] MEDS: DEXTROSE 50% 25 GM/50 ML SYRINGE IV PRN ×3 (00:15→14:52)
[2021-09-04] MEDS: ALBUTEROL/IPRATROPIUM 3 ML NEB RESP TX SCH ×6 (00:18→20:10)
[2021-09-04] MEDS: INSULIN LISPRO 100 UNIT/ML SUBCUT SCH ×4 (00:49→18:23)
[2021-09-04] MEDS: buPROPion 75 MG TABLET PO SCH ×3 (00:49→22:23)
[2021-09-04] MEDS: LEVOTHYROXINE 100 MCG TABLET PO SCH (06:02)
[2021-09-04] MEDS: PIPERACILLIN/TAZOBACTAM 3,375 MG in SODIUM CHLORIDE 0.9% 100 ML IV SCH (06:03)
[2021-09-04 06:19] LABS: Basophils % 0.2 % (0.0-0.8); Eosinophils % 0.2 % (0.00-10.9); Hemoglobin 9.1 GM/DL (12.0-16.0); Immature Granulocytes % 0.9 %; Immature Granulocytes Absolute 0.05 #; Lymphocytes # 0.4 10*3/uL (1.4-4.0); Lymphocytes % 7.7 % (21.3-54.2); Mean Corpuscular HGB Conc 32.5 GM/DL (32-36); Mean Platelet Volume 9.3 FL (9.6-12.0); Platelet Count 71 T/CUMM (130-400); Red Blood Count 3.11 MC/CUMM (3.8-5.5); Red Cell Distribution Width 17.5 % (9.3-17.3); White Blood Count 5.3 T/CUMM (4-12)
[2021-09-04 06:44] LABS: Hypochromia Slight; Platelet Estimate Decreased
[2021-09-04 06:56] LABS: Calcium 8.2 MG/DL (8.5-10.1); Osmolality,Calculated 300.4 MOS/KG (273-304)
[2021-09-04] MEDS: NYSTATIN 500,000 UNIT/5 ML UDCUP SWISH/SWAL SCH ×4 (10:59→22:24)
[2021-09-04] MEDS: INSULIN GLARGINE 100 UNIT/ML SUBCUT SCH (10:59)
[2021-09-04] MEDS: MENTHOL/ZINC OXIDE OINT 71 GM JAR TOP SCH ×2 (13:35→22:24)
[2021-09-04] MEDS: AMIODARONE 200 MG TABLET PO SCH ×2 (13:36→22:24)
[2021-09-04] MEDS: ISOSORBIDE DINITRATE 10 MG TABLET PO SCH ×3 (13:36→22:23)
[2021-09-04] MEDS: NIFEdipine 10 MG CAPSULE PO SCH ×3 (13:36→22:23)
[2021-09-04] MEDS: METOPROLOL TARTRATE 25 MG TABLET PO SCH ×2 (13:36→22:23)
[2021-09-04] MEDS: FAMOTIDINE 8 MG/ML 50 ML/BOTTLE PEG SCH (15:50)
[2021-09-04] MEDS: ASPIRIN CHEW 81 MG TABLET PO SCH (15:50)
[2021-09-04] MEDS: ATORVASTATIN 40 MG TABLET PO SCH (15:50)
[2021-09-04] MEDS: CHOLECALCIFEROL 1,000 UNIT TABLET PO SCH (15:50)
[2021-09-04] MEDS: predniSONE 20 MG TABLET PEG SCH (15:52)
[2021-09-04] MEDS: ESCITALOPRAM 10 MG TABLET PO SCH (22:23)
[2021-09-05] MEDS: ALBUTEROL/IPRATROPIUM 3 ML NEB RESP TX SCH ×6 (00:22→20:38)
[2021-09-05] MEDS: INSULIN LISPRO 100 UNIT/ML SUBCUT SCH ×5 (03:48→23:53)
[2021-09-05 04:00] LABS: Eosinophils % 0.8 % (0.00-10.9); Hemoglobin 8.7 GM/DL (12.0-16.0); Immature Granulocytes % 1.1 %; Immature Granulocytes Absolute 0.04 #; Lymphocytes # 0.3 10*3/uL (1.4-4.0); Lymphocytes % 9.1 % (21.3-54.2); Mean Corpuscular HGB Conc 32.2 GM/DL (32-36); Mean Platelet Volume 9.8 FL (9.6-12.0); Monocytes % 7.4 % (1.7-12.7); Neutrophils % 81.6 % (38.7-73.9); Platelet Count 73 T/CUMM (130-400); Red Cell Distribution Width 17.7 % (9.3-17.3); White Blood Count 3.6 T/CUMM (4-12)
[2021-09-05 04:17] LABS: Hypochromia 1+; Microcytosis 1+; Platelet Estimate Decreased
[2021-09-05] MEDS: INSULIN GLARGINE 100 UNIT/ML SUBCUT SCH (08:00)
[2021-09-05] MEDS: METOPROLOL TARTRATE 25 MG TABLET PO SCH ×2 (08:02→23:05)
[2021-09-05] MEDS: NIFEdipine 10 MG CAPSULE PO SCH (08:02)
[2021-09-05] MEDS: buPROPion 75 MG TABLET PO SCH ×2 (08:02→23:05)
[2021-09-05] MEDS: ATORVASTATIN 40 MG TABLET PO SCH (08:02)
[2021-09-05] MEDS: NYSTATIN 500,000 UNIT/5 ML UDCUP SWISH/SWAL SCH (08:02)
[2021-09-05] MEDS: predniSONE 20 MG TABLET PEG SCH (08:02)
[2021-09-05] MEDS: ASPIRIN CHEW 81 MG TABLET PO SCH (08:02)
[2021-09-05] MEDS: LEVOTHYROXINE 100 MCG TABLET PO SCH (08:02)
[2021-09-05] MEDS: AMIODARONE 200 MG TABLET PO SCH ×2 (08:02→23:05)
[2021-09-05] MEDS: ISOSORBIDE DINITRATE 10 MG TABLET PO SCH ×3 (08:02→23:05)
[2021-09-05] MEDS: FAMOTIDINE 8 MG/ML 50 ML/BOTTLE PEG SCH (08:03)
[2021-09-05] MEDS: CHOLECALCIFEROL 1,000 UNIT TABLET PO SCH (08:05)
[2021-09-05] MEDS: MENTHOL/ZINC OXIDE OINT 71 GM JAR TOP SCH ×2 (11:14→22:18)
[2021-09-05] MEDS: amLODIPine 10 MG TABLET PEG SCH (16:36)
[2021-09-05] MEDS: ESCITALOPRAM 10 MG TABLET PO SCH (23:05)
[2021-09-06] MEDS: ALBUTEROL/IPRATROPIUM 3 ML NEB RESP TX SCH ×6 (00:16→19:55)
[2021-09-06 05:48] LABS: Eosinophils % 0.4 % (0.00-10.9); Hematocrit 27.1 VOL% (35.7-47.0); Hemoglobin 8.6 GM/DL (12.0-16.0); Immature Granulocytes % 1.1 %; Immature Granulocytes Absolute 0.05 #; Lymphocytes # 0.4 10*3/uL (1.4-4.0); Lymphocytes % 9.1 % (21.3-54.2); Mean Corpuscular HGB Conc 31.7 GM/DL (32-36); Mean Platelet Volume 9.4 FL (9.6-12.0); Monocytes % 7.6 % (1.7-12.7); Neutrophils % 81.8 % (38.7-73.9); Platelet Count 83 T/CUMM (130-400); Red Blood Count 3.01 MC/CUMM (3.8-5.5); White Blood Count 4.6 T/CUMM (4-12)
[2021-09-06 06:15] LABS: Hypochromia Slight; Lymphocytes 12 % (20-55); Platelet Estimate Decreased; Segmented Neutrophils 83 % (50-85); Total Cells Counted 100
[2021-09-06] MEDS: LEVOTHYROXINE 100 MCG TABLET PO SCH (06:33)
[2021-09-06] MEDS: DEXTROSE 50% 25 GM/50 ML SYRINGE IV PRN ×2 (07:01→13:38)
[2021-09-06] MEDS: INSULIN LISPRO 100 UNIT/ML SUBCUT SCH ×3 (07:02→17:23)
[2021-09-06] MEDS: INSULIN GLARGINE 100 UNIT/ML SUBCUT SCH ×2 (09:00→13:35)
[2021-09-06] MEDS: MENTHOL/ZINC OXIDE OINT 71 GM JAR TOP SCH ×2 (13:45→21:53)
[2021-09-06] MEDS: AMIODARONE 200 MG TABLET PO SCH ×2 (13:59→21:53)
[2021-09-06] MEDS: ATORVASTATIN 40 MG TABLET PO SCH (13:59)
[2021-09-06] MEDS: ISOSORBIDE DINITRATE 10 MG TABLET PO SCH ×3 (13:59→21:52)
[2021-09-06] MEDS: predniSONE 20 MG TABLET PEG SCH (14:00)
[2021-09-06] MEDS: amLODIPine 10 MG TABLET PEG SCH (14:00)
[2021-09-06] MEDS: FAMOTIDINE 8 MG/ML 50 ML/BOTTLE PEG SCH (14:00)
[2021-09-06] MEDS: buPROPion 75 MG TABLET PO SCH ×2 (14:00→21:52)
[2021-09-06] MEDS: CHOLECALCIFEROL 1,000 UNIT TABLET PO SCH (14:00)
[2021-09-06] MEDS: METOPROLOL TARTRATE 25 MG TABLET PO SCH ×2 (14:00→21:52)
[2021-09-06] MEDS: ESCITALOPRAM 10 MG TABLET PO SCH (21:53)
[2021-09-06] MEDS: ACETAMINOPHEN 325 MG TABLET PO PRN (22:40)
[2021-09-07] MEDS: ALBUTEROL/IPRATROPIUM 3 ML NEB RESP TX SCH ×7 (00:13→23:56)
[2021-09-07] MEDS: INSULIN LISPRO 100 UNIT/ML SUBCUT SCH ×3 (06:31→22:31)
[2021-09-07] MEDS: buPROPion 75 MG TABLET PO SCH ×2 (10:18→22:36)
[2021-09-07] MEDS: ISOSORBIDE DINITRATE 10 MG TABLET PO SCH ×3 (10:18→22:37)
[2021-09-07] MEDS: CHOLECALCIFEROL 1,000 UNIT TABLET PO SCH (10:18)
[2021-09-07] MEDS: ATORVASTATIN 40 MG TABLET PO SCH (10:18)
[2021-09-07] MEDS: METOPROLOL TARTRATE 25 MG TABLET PO SCH ×2 (10:18→22:36)
[2021-09-07] MEDS: predniSONE 20 MG TABLET PEG SCH (10:18)
[2021-09-07] MEDS: amLODIPine 10 MG TABLET PEG SCH (10:19)
[2021-09-07] MEDS: AMIODARONE 200 MG TABLET PO SCH ×2 (10:19→22:37)
[2021-09-07] MEDS: INSULIN GLARGINE 100 UNIT/ML SUBCUT SCH (10:19)
[2021-09-07] MEDS: FAMOTIDINE 8 MG/ML 50 ML/BOTTLE PEG SCH (12:44)
[2021-09-07] MEDS: MENTHOL/ZINC OXIDE OINT 71 GM JAR TOP SCH ×2 (16:26→22:32)
[2021-09-07] MEDS: LEVOTHYROXINE 100 MCG TABLET PO SCH (19:38)
[2021-09-07] MEDS: ESCITALOPRAM 10 MG TABLET PO SCH (22:37)
[2021-09-08] MEDS: DEXTROSE 50% 25 GM/50 ML SYRINGE IV PRN ×2 (02:52→06:21)
[2021-09-08] MEDS: INSULIN LISPRO 100 UNIT/ML SUBCUT SCH ×5 (03:01→23:47)
[2021-09-08] MEDS: ALBUTEROL/IPRATROPIUM 3 ML NEB RESP TX SCH ×5 (03:29→20:30)
[2021-09-08] MEDS: buPROPion 75 MG TABLET PO SCH ×2 (09:48→21:33)
[2021-09-08] MEDS: ISOSORBIDE DINITRATE 10 MG TABLET PO SCH ×3 (09:48→21:33)
[2021-09-08] MEDS: MENTHOL/ZINC OXIDE OINT 71 GM JAR TOP SCH ×2 (09:49→21:34)
[2021-09-08] MEDS: FAMOTIDINE 8 MG/ML 50 ML/BOTTLE PEG SCH (09:49)
[2021-09-08] MEDS: INSULIN GLARGINE 100 UNIT/ML SUBCUT SCH (09:49)
[2021-09-08] MEDS: predniSONE 20 MG TABLET PEG SCH (09:49)
[2021-09-08] MEDS: LEVOTHYROXINE 100 MCG TABLET PO SCH (09:49)
[2021-09-08] MEDS: AMIODARONE 200 MG TABLET PO SCH ×2 (09:49→21:34)
[2021-09-08] MEDS: amLODIPine 10 MG TABLET PEG SCH (09:49)
[2021-09-08] MEDS: ATORVASTATIN 40 MG TABLET PO SCH (09:49)
[2021-09-08] MEDS: METOPROLOL TARTRATE 25 MG TABLET PO SCH ×2 (09:49→21:33)
[2021-09-08] MEDS: CHOLECALCIFEROL 1,000 UNIT TABLET PO SCH (09:49)
[2021-09-08] MEDS: ACETAMINOPHEN 325 MG TABLET PO PRN (15:47)
[2021-09-08] MEDS: ESCITALOPRAM 10 MG TABLET PO SCH (21:33)
[2021-09-09] MEDS: ALBUTEROL/IPRATROPIUM 3 ML NEB RESP TX SCH ×7 (00:30→23:52)
[2021-09-09 05:06] LABS: Osmolality,Calculated 283.1 MOS/KG (273-304); Potassium 3.3 MMOL/L (3.5-5.1)
[2021-09-09] MEDS: INSULIN LISPRO 100 UNIT/ML SUBCUT SCH ×3 (05:22→17:50)
[2021-09-09] MEDS ORDERED: POTASSIUM CHLORIDE 20 MEQ TABLET PO PRN (08:52)
[2021-09-09] MEDS: INSULIN GLARGINE 100 UNIT/ML SUBCUT SCH (10:44)
[2021-09-09] MEDS: AMIODARONE 200 MG TABLET PO SCH ×3 (10:44→22:07)
[2021-09-09] MEDS: amLODIPine 10 MG TABLET PEG SCH ×2 (10:44→13:42)
[2021-09-09] MEDS: ISOSORBIDE DINITRATE 10 MG TABLET PO SCH ×4 (10:44→22:06)
[2021-09-09] MEDS: MENTHOL/ZINC OXIDE OINT 71 GM JAR TOP SCH ×2 (10:44→22:07)
[2021-09-09] MEDS: METOPROLOL TARTRATE 25 MG TABLET PO SCH ×3 (10:44→22:07)
[2021-09-09] MEDS: ATORVASTATIN 40 MG TABLET PO SCH ×2 (10:44→13:43)
[2021-09-09] MEDS: LEVOTHYROXINE 100 MCG TABLET PO SCH ×2 (10:44→13:43)
[2021-09-09] MEDS: CHOLECALCIFEROL 1,000 UNIT TABLET PO SCH ×2 (10:45→13:43)
[2021-09-09] MEDS: buPROPion 75 MG TABLET PO SCH ×3 (10:45→22:06)
[2021-09-09] MEDS: FAMOTIDINE 8 MG/ML 50 ML/BOTTLE PEG SCH (10:45)
[2021-09-09] MEDS: predniSONE 20 MG TABLET PEG SCH ×2 (10:45→13:43)
[2021-09-09] MEDS: ESCITALOPRAM 10 MG TABLET PO SCH (22:07)
[2021-09-09] MEDS: ACETAMINOPHEN 325 MG TABLET PO PRN (22:59)
[2021-09-10] MEDS: INSULIN LISPRO 100 UNIT/ML SUBCUT SCH ×4 (01:28→17:51)
[2021-09-10] MEDS: ALBUTEROL/IPRATROPIUM 3 ML NEB RESP TX SCH ×6 (03:00→23:32)
[2021-09-10] MEDS: LEVOTHYROXINE 100 MCG TABLET PO SCH (06:06)
[2021-09-10] MEDS: CHOLECALCIFEROL 1,000 UNIT TABLET PO SCH (09:30)
[2021-09-10] MEDS: AMIODARONE 200 MG TABLET PO SCH ×2 (09:30→22:37)
[2021-09-10] MEDS: MENTHOL/ZINC OXIDE OINT 71 GM JAR TOP SCH ×2 (09:30→22:37)
[2021-09-10] MEDS: METOPROLOL TARTRATE 25 MG TABLET PO SCH ×2 (09:30→22:39)
[2021-09-10] MEDS: ATORVASTATIN 40 MG TABLET PO SCH (09:30)
[2021-09-10] MEDS: ISOSORBIDE DINITRATE 10 MG TABLET PO SCH ×3 (09:30→22:37)
[2021-09-10] MEDS: FAMOTIDINE 8 MG/ML 50 ML/BOTTLE PEG SCH (09:30)
[2021-09-10] MEDS: buPROPion 75 MG TABLET PO SCH ×2 (09:30→22:39)
[2021-09-10] MEDS: predniSONE 20 MG TABLET PEG SCH (09:30)
[2021-09-10] MEDS: amLODIPine 10 MG TABLET PEG SCH (09:30)
[2021-09-10] MEDS: INSULIN GLARGINE 100 UNIT/ML SUBCUT SCH (10:05)
[2021-09-10] MEDS: ACETAMINOPHEN 325 MG TABLET PO PRN (11:54)
[2021-09-10] MEDS: ESCITALOPRAM 10 MG TABLET PO SCH (22:38)
[2021-09-11] MEDS: INSULIN LISPRO 100 UNIT/ML SUBCUT SCH ×4 (00:10→18:07)
[2021-09-11] MEDS: ALBUTEROL/IPRATROPIUM 3 ML NEB RESP TX SCH ×5 (03:21→20:25)
[2021-09-11 05:48] LABS: Hematocrit 23.2 VOL% (35.7-47.0); Hemoglobin 7.3 GM/DL (12.0-16.0); Immature Granulocytes % 0.9 %; Immature Granulocytes Absolute 0.06 #; Lymphocytes # 0.4 10*3/uL (1.4-4.0); Lymphocytes % 5.3 % (21.3-54.2); Mean Corpuscular HGB Conc 31.5 GM/DL (32-36); Mean Corpuscular Volume 92.4 FL (87-102); Mean Platelet Volume 9.1 FL (9.6-12.0); Monocytes % 9.2 % (1.7-12.7); Neutrophils % 84.6 % (38.7-73.9); Platelet Count 160 T/CUMM (130-400); Red Blood Count 2.51 MC/CUMM (3.8-5.5); Red Cell Distribution Width 19.9 % (9.3-17.3); White Blood Count 6.6 T/CUMM (4-12)
[2021-09-11] MEDS: LEVOTHYROXINE 100 MCG TABLET PO SCH (05:51)
[2021-09-11 06:07] LABS: Calcium 8.9 MG/DL (8.5-10.1)
[2021-09-11 06:41] LABS: Band Neutrophils 2 % (0-10); Lymphocytes 3 % (20-55); Platelet Estimate Adequate; Segmented Neutrophils 88 % (50-85); Total Cells Counted 100
[2021-09-11 06:42] LABS: Hypochromia 1+; Microcytosis 1+
[2021-09-11] MEDS: INSULIN GLARGINE 100 UNIT/ML SUBCUT SCH (09:00)
[2021-09-11] MEDS: predniSONE 20 MG TABLET PEG SCH (13:05)
[2021-09-11] MEDS: amLODIPine 10 MG TABLET PEG SCH (13:05)
[2021-09-11] MEDS: CHOLECALCIFEROL 1,000 UNIT TABLET PO SCH (13:05)
[2021-09-11] MEDS: ATORVASTATIN 40 MG TABLET PO SCH (13:05)
[2021-09-11] MEDS: FAMOTIDINE 8 MG/ML 50 ML/BOTTLE PEG SCH (13:05)
[2021-09-11] MEDS: AMIODARONE 200 MG TABLET PO SCH ×2 (13:42→21:11)
[2021-09-11] MEDS: ISOSORBIDE DINITRATE 10 MG TABLET PO SCH ×3 (13:42→21:10)
[2021-09-11] MEDS: METOPROLOL TARTRATE 25 MG TABLET PO SCH ×2 (13:43→21:10)
[2021-09-11] MEDS: buPROPion 75 MG TABLET PO SCH ×2 (13:44→21:10)
[2021-09-11] MEDS: MENTHOL/ZINC OXIDE OINT 71 GM JAR TOP SCH ×2 (14:22→21:11)
[2021-09-11] MEDS: ESCITALOPRAM 10 MG TABLET PO SCH (21:11)
[2021-09-12] MEDS: INSULIN LISPRO 100 UNIT/ML SUBCUT SCH ×5 (00:19→23:45)
[2021-09-12] MEDS: ALBUTEROL/IPRATROPIUM 3 ML NEB RESP TX SCH ×5 (00:30→14:40)
[2021-09-12 05:19] LABS: Hematocrit 20.5 VOL% (35.7-47.0); Hemoglobin 6.6 GM/DL (12.0-16.0); Immature Granulocytes % 1.1 %; Immature Granulocytes Absolute 0.05 #; Lymphocytes # 0.4 10*3/uL (1.4-4.0); Lymphocytes % 8.9 % (21.3-54.2); Mean Corpuscular HGB Conc 32.2 GM/DL (32-36); Mean Corpuscular Volume 92.8 FL (87-102); Mean Platelet Volume 9.4 FL (9.6-12.0); Monocytes % 8.9 % (1.7-12.7); Neutrophils % 81.1 % (38.7-73.9); Platelet Count 144 T/CUMM (130-400); Red Blood Count 2.21 MC/CUMM (3.8-5.5); Red Cell Distribution Width 20.3 % (9.3-17.3); White Blood Count 4.6 T/CUMM (4-12)
[2021-09-12 05:32] LABS: Band Neutrophils 1 % (0-10); Hypochromia 2+; Lymphocytes 6 % (20-55); Platelet Estimate Normal; Segmented Neutrophils 86 % (50-85); Total Cells Counted 100
[2021-09-12] MEDS: LEVOTHYROXINE 100 MCG TABLET PO SCH (06:41)
[2021-09-12] MEDS: predniSONE 20 MG TABLET PEG SCH (08:35)
[2021-09-12] MEDS: AMIODARONE 200 MG TABLET PO SCH ×2 (08:35→23:10)
[2021-09-12] MEDS: ATORVASTATIN 40 MG TABLET PO SCH (08:35)
[2021-09-12] MEDS: ISOSORBIDE DINITRATE 10 MG TABLET PO SCH ×3 (08:35→23:10)
[2021-09-12] MEDS: amLODIPine 10 MG TABLET PEG SCH (08:35)
[2021-09-12] MEDS: FAMOTIDINE 8 MG/ML 50 ML/BOTTLE PEG SCH (08:35)
[2021-09-12] MEDS: buPROPion 75 MG TABLET PO SCH ×2 (08:35→23:10)
[2021-09-12] MEDS: METOPROLOL TARTRATE 25 MG TABLET PO SCH ×2 (08:35→23:10)
[2021-09-12] MEDS: INSULIN GLARGINE 100 UNIT/ML SUBCUT SCH (08:35)
[2021-09-12] MEDS: CHOLECALCIFEROL 1,000 UNIT TABLET PO SCH (08:35)
[2021-09-12] MEDS ORDERED: SODIUM CHLORIDE 0.9% 1,000 ML IV PRN (08:47)
[2021-09-12] MEDS ORDERED: diphenhydrAMINE 25 MG/10 ML UDCUP PO PRN (08:51)
[2021-09-12] MEDS: MENTHOL/ZINC OXIDE OINT 71 GM JAR TOP SCH ×2 (09:00→23:10)
[2021-09-12] MEDS: PIPERACILLIN/TAZOBACTAM 3,375 MG in SODIUM CHLORIDE 0.9% 100 ML IV SCH (23:00)
[2021-09-12] MEDS: ESCITALOPRAM 10 MG TABLET PO SCH (23:10)
[2021-09-13] MEDS: PIPERACILLIN/TAZOBACTAM 3,375 MG in SODIUM CHLORIDE 0.9% 100 ML IV SCH (05:45)
[2021-09-13] MEDS: LEVOTHYROXINE 100 MCG TABLET PO SCH (05:50)
[2021-09-13] MEDS: INSULIN LISPRO 100 UNIT/ML SUBCUT SCH ×3 (06:13→17:27)
[2021-09-13] MEDS: ALBUTEROL/IPRATROPIUM 3 ML NEB RESP TX SCH ×7 (07:22→23:52)
[2021-09-13] MEDS ORDERED: SODIUM CHLORIDE 0.9% 1,000 ML IV PRN (08:33)
[2021-09-13] MEDS: AMIODARONE 200 MG TABLET PO SCH ×2 (09:00→21:32)
[2021-09-13] MEDS: INSULIN GLARGINE 100 UNIT/ML SUBCUT SCH (10:40)
[2021-09-13] MEDS: ISOSORBIDE DINITRATE 10 MG TABLET PO SCH ×3 (10:40→21:31)
[2021-09-13] MEDS: ATORVASTATIN 40 MG TABLET PO SCH (10:40)
[2021-09-13] MEDS: buPROPion 75 MG TABLET PO SCH ×2 (10:41→21:31)
[2021-09-13] MEDS: METOPROLOL TARTRATE 25 MG TABLET PO SCH ×2 (10:41→21:31)
[2021-09-13] MEDS: CHOLECALCIFEROL 1,000 UNIT TABLET PO SCH (10:41)
[2021-09-13] MEDS: predniSONE 20 MG TABLET PEG SCH (10:41)
[2021-09-13] MEDS: amLODIPine 10 MG TABLET PEG SCH (10:41)
[2021-09-13] MEDS: FAMOTIDINE 8 MG/ML 50 ML/BOTTLE PEG SCH (10:41)
[2021-09-13] MEDS: MENTHOL/ZINC OXIDE OINT 71 GM JAR TOP SCH ×2 (16:01→21:32)
[2021-09-13] MEDS: ESCITALOPRAM 10 MG TABLET PO SCH (21:32)
[2021-09-14] MEDS: INSULIN LISPRO 100 UNIT/ML SUBCUT SCH ×5 (00:05→23:52)
[2021-09-14] MEDS: ALBUTEROL/IPRATROPIUM 3 ML NEB RESP TX SCH ×7 (03:53→23:19)
[2021-09-14] MEDS: LEVOTHYROXINE 100 MCG TABLET PO SCH (06:33)
[2021-09-14] MEDS ORDERED: FUROSEMIDE 40 MG/4 ML VIAL IV ONE (09:55)
[2021-09-14] MEDS: INSULIN GLARGINE 100 UNIT/ML SUBCUT SCH (09:56)
[2021-09-14] MEDS: ISOSORBIDE DINITRATE 10 MG TABLET PO SCH ×4 (10:00→23:52)
[2021-09-14] MEDS: amLODIPine 10 MG TABLET PEG SCH (10:00)
[2021-09-14] MEDS: ATORVASTATIN 40 MG TABLET PO SCH (10:00)
[2021-09-14] MEDS: AMIODARONE 200 MG TABLET PO SCH ×3 (10:00→23:52)
[2021-09-14] MEDS: METOPROLOL TARTRATE 25 MG TABLET PO SCH ×3 (10:00→23:51)
[2021-09-14] MEDS: CHOLECALCIFEROL 1,000 UNIT TABLET PO SCH (10:00)
[2021-09-14] MEDS: predniSONE 20 MG TABLET PEG SCH (10:00)
[2021-09-14] MEDS: buPROPion 75 MG TABLET PO SCH ×3 (10:00→23:51)
[2021-09-14] MEDS: FAMOTIDINE 8 MG/ML 50 ML/BOTTLE PEG SCH (10:01)
[2021-09-14 10:17] LABS: Basophils % 0.2 % (0.0-0.8); Eosinophils % 0.5 % (0.00-10.9); Hematocrit 31.9 VOL% (35.7-47.0); Hemoglobin 10.2 GM/DL (12.0-16.0); Immature Granulocytes % 2.8 %; Immature Granulocytes Absolute 0.12 #; Lymphocytes # 0.5 10*3/uL (1.4-4.0); Lymphocytes % 11.2 % (21.3-54.2); Mean Corpuscular Volume 90.6 FL (87-102); Mean Platelet Volume 8.8 FL (9.6-12.0); Monocytes % 9.3 % (1.7-12.7); Platelet Count 159 T/CUMM (130-400); Red Blood Count 3.52 MC/CUMM (3.8-5.5); Red Cell Distribution Width 19.4 % (9.3-17.3); White Blood Count 4.3 T/CUMM (4-12)
[2021-09-14 10:43] LABS: Anisocytosis 1+; Band Neutrophils 6 % (0-10); Eosinophils 1 % (0-10); Lymphocytes 13 % (20-55); Platelet Estimate Normal; Segmented Neutrophils 72 % (50-85); Smudge Cells Few; Total Cells Counted 100
[2021-09-14] MEDS: MENTHOL/ZINC OXIDE OINT 71 GM JAR TOP SCH ×2 (18:41→22:26)
[2021-09-14] MEDS: ACETAMINOPHEN 325 MG TABLET PO PRN (22:25)
[2021-09-14] MEDS: ESCITALOPRAM 10 MG TABLET PO SCH ×2 (22:26→23:51)
[2021-09-14] MEDS ORDERED: METOPROLOL TARTRATE 5 MG/5 ML VIAL IV ONE (23:06)
[2021-09-15] MEDS: DEXTROSE 5% 1,000 ML IV SCH ×3 (00:06→21:27)
[2021-09-15] MEDS ORDERED: FUROSEMIDE 40 MG/4 ML VIAL IV ONE (02:57)
[2021-09-15] MEDS ORDERED: FUROSEMIDE 100 MG/10 ML VIAL IV ONE (03:30)
[2021-09-15] MEDS: DEXTROSE 50% 25 GM/50 ML SYRINGE IV PRN (03:45)
[2021-09-15] MEDS: ALBUTEROL/IPRATROPIUM 3 ML NEB RESP TX SCH ×5 (03:56→19:50)
[2021-09-15 05:58] LABS: Calcium 8.7 MG/DL (8.5-10.1); Osmolality,Calculated 275.5 MOS/KG (273-304); Potassium 3.9 MMOL/L (3.5-5.1)
[2021-09-15] MEDS: INSULIN LISPRO 100 UNIT/ML SUBCUT SCH ×3 (06:38→17:46)
[2021-09-15] MEDS: LEVOTHYROXINE 100 MCG TABLET PO SCH (06:38)
[2021-09-15] MEDS: INSULIN GLARGINE 100 UNIT/ML SUBCUT SCH (08:21)
[2021-09-15] MEDS: ATORVASTATIN 40 MG TABLET PO SCH (08:50)
[2021-09-15] MEDS: predniSONE 20 MG TABLET PEG SCH (08:51)
[2021-09-15] MEDS: buPROPion 75 MG TABLET PO SCH ×2 (08:51→21:27)
[2021-09-15] MEDS: amLODIPine 10 MG TABLET PEG SCH (08:51)
[2021-09-15] MEDS: CHOLECALCIFEROL 1,000 UNIT TABLET PO SCH (08:51)
[2021-09-15] MEDS: AMIODARONE 200 MG TABLET PO SCH ×2 (08:51→21:27)
[2021-09-15] MEDS: METOPROLOL TARTRATE 25 MG TABLET PO SCH ×2 (08:51→21:27)
[2021-09-15] MEDS: ISOSORBIDE DINITRATE 10 MG TABLET PO SCH ×3 (08:51→21:27)
[2021-09-15] MEDS: MENTHOL/ZINC OXIDE OINT 71 GM JAR TOP SCH ×2 (08:52→21:27)
[2021-09-15] MEDS: FAMOTIDINE 8 MG/ML 50 ML/BOTTLE PEG SCH (08:52)
[2021-09-15] MEDS ORDERED: FUROSEMIDE 40 MG TABLET PO SCH (09:00)
[2021-09-15] MEDS: ESCITALOPRAM 10 MG TABLET PO SCH (21:27)
[2021-09-16] MEDS: ALBUTEROL/IPRATROPIUM 3 ML NEB RESP TX SCH ×6 (00:37→20:55)
[2021-09-16] MEDS: INSULIN LISPRO 100 UNIT/ML SUBCUT SCH ×5 (01:06→23:56)
[2021-09-16] MEDS: LEVOTHYROXINE 100 MCG TABLET PO SCH (05:28)
[2021-09-16] MEDS: DEXTROSE 5% 1,000 ML IV SCH ×2 (07:59→16:12)
[2021-09-16] MEDS: predniSONE 20 MG TABLET PEG SCH (08:00)
[2021-09-16] MEDS: AMIODARONE 200 MG TABLET PO SCH ×2 (08:00→21:51)
[2021-09-16] MEDS: FAMOTIDINE 8 MG/ML 50 ML/BOTTLE PEG SCH (08:00)
[2021-09-16] MEDS: buPROPion 75 MG TABLET PO SCH ×2 (08:00→21:51)
[2021-09-16] MEDS: ATORVASTATIN 40 MG TABLET PO SCH (08:00)
[2021-09-16] MEDS: CHOLECALCIFEROL 1,000 UNIT TABLET PO SCH (08:00)
[2021-09-16] MEDS: MENTHOL/ZINC OXIDE OINT 71 GM JAR TOP SCH ×2 (08:01→23:14)
[2021-09-16] MEDS: FUROSEMIDE 40 MG TABLET PO SCH (08:01)
[2021-09-16] MEDS: INSULIN GLARGINE 100 UNIT/ML SUBCUT SCH (08:01)
[2021-09-16] MEDS: ISOSORBIDE DINITRATE 10 MG TABLET PO SCH ×3 (08:01→21:51)
[2021-09-16] MEDS: amLODIPine 10 MG TABLET PEG SCH (08:02)
[2021-09-16] MEDS: METOPROLOL TARTRATE 25 MG TABLET PO SCH ×2 (08:02→21:51)
[2021-09-16] MEDS: ESCITALOPRAM 10 MG TABLET PO SCH (21:51)
[2021-09-17] MEDS: ALBUTEROL/IPRATROPIUM 3 ML NEB RESP TX SCH ×6 (00:25→20:50)
[2021-09-17] MEDS: DEXTROSE 5% 1,000 ML IV SCH ×3 (04:07→23:57)
[2021-09-17] MEDS: LEVOTHYROXINE 100 MCG TABLET PO SCH (05:47)
[2021-09-17] MEDS: INSULIN LISPRO 100 UNIT/ML SUBCUT SCH ×4 (06:01→23:57)
[2021-09-17 06:46] LABS: Basophils % 0.1 % (0.0-0.8); Eosinophils % 0.3 % (0.00-10.9); Hematocrit 31.4 VOL% (35.7-47.0); Hemoglobin 10.2 GM/DL (12.0-16.0); Immature Granulocytes % 2.9 %; Lymphocytes # 0.7 10*3/uL (1.4-4.0); Lymphocytes % 10.7 % (21.3-54.2); Mean Corpuscular HGB Conc 32.5 GM/DL (32-36); Mean Corpuscular Volume 91.3 FL (87-102); Monocytes % 6.5 % (1.7-12.7); Neutrophils % 79.5 % (38.7-73.9); Platelet Count 193 T/CUMM (130-400); Red Blood Count 3.44 MC/CUMM (3.8-5.5); Red Cell Distribution Width 19.4 % (9.3-17.3); White Blood Count 6.9 T/CUMM (4-12)
[2021-09-17 07:13] LABS: Calcium 9.3 MG/DL (8.5-10.1); Osmolality,Calculated 272.8 MOS/KG (273-304); Potassium 3.9 MMOL/L (3.5-5.1)
[2021-09-17] MEDS: CHOLECALCIFEROL 1,000 UNIT TABLET PO SCH (10:18)
[2021-09-17] MEDS: ISOSORBIDE DINITRATE 10 MG TABLET PO SCH ×3 (10:18→21:01)
[2021-09-17] MEDS: INSULIN GLARGINE 100 UNIT/ML SUBCUT SCH (10:18)
[2021-09-17] MEDS: buPROPion 75 MG TABLET PO SCH ×2 (10:18→21:01)
[2021-09-17] MEDS: FUROSEMIDE 40 MG TABLET PO SCH (10:18)
[2021-09-17] MEDS: predniSONE 20 MG TABLET PEG SCH (10:19)
[2021-09-17] MEDS: amLODIPine 10 MG TABLET PEG SCH (10:19)
[2021-09-17] MEDS: ATORVASTATIN 40 MG TABLET PO SCH (10:19)
[2021-09-17] MEDS: AMIODARONE 200 MG TABLET PO SCH ×2 (10:19→21:01)
[2021-09-17] MEDS: METOPROLOL TARTRATE 25 MG TABLET PO SCH ×2 (10:19→21:01)
[2021-09-17] MEDS: FAMOTIDINE 8 MG/ML 50 ML/BOTTLE PEG SCH (10:20)
[2021-09-17] MEDS: MENTHOL/ZINC OXIDE OINT 71 GM JAR TOP SCH ×2 (10:42→21:19)
[2021-09-17 12:26] LABS: INR 0.9; PT Patient Result 10.3 SECS (10.5-12.0)
[2021-09-17 14:42] LABS: Amylase,Body Fluid 29 U/L; Glucose,Pleural Fluid 110 MG/DL; LDH,Body Fluid 123 U/L; Total Protein,Body Fluid < 2.0 G/DL; Triglycerides,Body Fluid < 15 MG/DL
[2021-09-17 15:00] LABS: Lymphocytes,Pleural Fluid 83 %; Monocytes,Pleural Fluid 1 %; Neutrophils,Pleural Fluid 16 %
[2021-09-17 15:02] LABS: RBC,Pleural Fluid 185 T/CUMM
[2021-09-17] MEDS: ACETAMINOPHEN 325 MG TABLET PO PRN (16:01)
[2021-09-17] MEDS: ESCITALOPRAM 10 MG TABLET PO SCH (21:01)
[2021-09-18] MEDS: ALBUTEROL/IPRATROPIUM 3 ML NEB RESP TX SCH ×7 (03:26→23:40)
[2021-09-18 06:00] LABS: Basophils % 0.1 % (0.0-0.8); Eosinophils % 0.3 % (0.00-10.9); Hematocrit 33.5 VOL% (35.7-47.0); Hemoglobin 10.6 GM/DL (12.0-16.0); Immature Granulocytes % 1.8 %; Immature Granulocytes Absolute 0.13 #; Lymphocytes # 0.7 10*3/uL (1.4-4.0); Lymphocytes % 10.2 % (21.3-54.2); Mean Corpuscular HGB Conc 31.6 GM/DL (32-36); Mean Corpuscular Volume 90.3 FL (87-102); Mean Platelet Volume 8.9 FL (9.6-12.0); Monocytes % 8.5 % (1.7-12.7); Neutrophils % 79.1 % (38.7-73.9); Platelet Count 203 T/CUMM (130-400); Red Blood Count 3.71 MC/CUMM (3.8-5.5); Red Cell Distribution Width 19.6 % (9.3-17.3); White Blood Count 7.2 T/CUMM (4-12)
[2021-09-18] MEDS: INSULIN LISPRO 100 UNIT/ML SUBCUT SCH ×3 (06:24→17:56)
[2021-09-18 06:28] LABS: Calcium 9.1 MG/DL (8.5-10.1); Osmolality,Calculated 274.9 MOS/KG (273-304)
[2021-09-18] MEDS: LEVOTHYROXINE 100 MCG TABLET PO SCH (06:42)
[2021-09-18] MEDS ORDERED: SODIUM CHLORIDE 0.9% 1,000 ML IV SCH (08:00)
[2021-09-18] MEDS: METOPROLOL TARTRATE 25 MG TABLET PO SCH ×2 (13:00→21:07)
[2021-09-18] MEDS: predniSONE 20 MG TABLET PEG SCH (13:00)
[2021-09-18] MEDS: ATORVASTATIN 40 MG TABLET PO SCH (13:00)
[2021-09-18] MEDS: MENTHOL/ZINC OXIDE OINT 71 GM JAR TOP SCH ×2 (13:00→21:08)
[2021-09-18] MEDS: AMIODARONE 200 MG TABLET PO SCH ×2 (13:00→21:08)
[2021-09-18] MEDS: ISOSORBIDE DINITRATE 10 MG TABLET PO SCH ×3 (13:00→21:07)
[2021-09-18] MEDS: buPROPion 75 MG TABLET PO SCH ×2 (13:00→21:07)
[2021-09-18] MEDS: CHOLECALCIFEROL 1,000 UNIT TABLET PO SCH (13:00)
[2021-09-18] MEDS: INSULIN GLARGINE 100 UNIT/ML SUBCUT SCH (13:00)
[2021-09-18] MEDS: FAMOTIDINE 8 MG/ML 50 ML/BOTTLE PEG SCH (13:00)
[2021-09-18] MEDS: amLODIPine 10 MG TABLET PEG SCH (13:00)
[2021-09-18] MEDS: ACETAMINOPHEN 325 MG TABLET PO PRN (21:06)
[2021-09-19] MEDS: INSULIN LISPRO 100 UNIT/ML SUBCUT SCH ×4 (00:36→19:02)
[2021-09-19] MEDS: ALBUTEROL/IPRATROPIUM 3 ML NEB RESP TX SCH ×6 (03:50→23:50)
[2021-09-19 05:18] LABS: Basophils % 0.2 % (0.0-0.8); Eosinophils % 0.2 % (0.00-10.9); Hematocrit 30.2 VOL% (35.7-47.0); Hemoglobin 9.6 GM/DL (12.0-16.0); Immature Granulocytes % 4.3 %; Immature Granulocytes Absolute 0.27 #; Lymphocytes # 0.7 10*3/uL (1.4-4.0); Lymphocytes % 10.7 % (21.3-54.2); Mean Corpuscular HGB Conc 31.8 GM/DL (32-36); Mean Corpuscular Volume 91.5 FL (87-102); Monocytes % 9.1 % (1.7-12.7); NRBC # 0.02 10*3/uL; Neutrophils % 75.5 % (38.7-73.9); Platelet Count 197 T/CUMM (130-400); Red Cell Distribution Width 19.8 % (9.3-17.3); White Blood Count 6.2 T/CUMM (4-12)
[2021-09-19 05:37] LABS: Calcium 9.2 MG/DL (8.5-10.1); Osmolality,Calculated 275.5 MOS/KG (273-304); Potassium 3.7 MMOL/L (3.5-5.1)
[2021-09-19] MEDS: LEVOTHYROXINE 100 MCG TABLET PO SCH (05:42)
[2021-09-19] MEDS: INSULIN GLARGINE 100 UNIT/ML SUBCUT SCH (08:59)
[2021-09-19] MEDS: predniSONE 20 MG TABLET PEG SCH (08:59)
[2021-09-19] MEDS: ISOSORBIDE DINITRATE 10 MG TABLET PO SCH ×3 (08:59→21:46)
[2021-09-19] MEDS: AMIODARONE 200 MG TABLET PO SCH ×2 (08:59→21:46)
[2021-09-19] MEDS: METOPROLOL TARTRATE 25 MG TABLET PO SCH ×2 (08:59→21:46)
[2021-09-19] MEDS: CHOLECALCIFEROL 1,000 UNIT TABLET PO SCH (09:00)
[2021-09-19] MEDS: buPROPion 75 MG TABLET PO SCH ×2 (09:00→21:46)
[2021-09-19] MEDS: ATORVASTATIN 40 MG TABLET PO SCH (09:00)
[2021-09-19] MEDS: amLODIPine 10 MG TABLET PEG SCH (09:00)
[2021-09-19] MEDS: MENTHOL/ZINC OXIDE OINT 71 GM JAR TOP SCH ×2 (09:03→21:47)
[2021-09-19] MEDS: FAMOTIDINE 8 MG/ML 50 ML/BOTTLE PEG SCH (09:06)
[2021-09-19] MEDS: ONDANSETRON 4 MG/2 ML VIAL IV PRN (21:45)
[2021-09-19] MEDS: guaiFENesin/DM ER 600-30 MG TABLET PO PRN (21:46)
[2021-09-19] MEDS: ACETAMINOPHEN 325 MG TABLET PO PRN (21:46)
[2021-09-20] MEDS: INSULIN LISPRO 100 UNIT/ML SUBCUT SCH ×4 (00:05→18:59)
[2021-09-20] MEDS: ALBUTEROL/IPRATROPIUM 3 ML NEB RESP TX SCH ×5 (03:09→19:56)
[2021-09-20 05:04] LABS: Basophils % 0.1 % (0.0-0.8); Eosinophils % 0.1 % (0.00-10.9); Hematocrit 34.5 VOL% (35.7-47.0); Hemoglobin 10.9 GM/DL (12.0-16.0); Immature Granulocytes % 2.3 %; Immature Granulocytes Absolute 0.17 #; Lymphocytes # 0.8 10*3/uL (1.4-4.0); Lymphocytes % 10.3 % (21.3-54.2); Mean Corpuscular HGB Conc 31.6 GM/DL (32-36); Mean Platelet Volume 9.5 FL (9.6-12.0); Monocytes % 7.9 % (1.7-12.7); Neutrophils % 79.3 % (38.7-73.9); Platelet Count 234 T/CUMM (130-400); Red Blood Count 3.75 MC/CUMM (3.8-5.5); Red Cell Distribution Width 19.9 % (9.3-17.3); White Blood Count 7.5 T/CUMM (4-12)
[2021-09-20 05:21] LABS: Calcium 9.6 MG/DL (8.5-10.1); Osmolality,Calculated 278.7 MOS/KG (273-304); Potassium 4.3 MMOL/L (3.5-5.1)
[2021-09-20] MEDS: LEVOTHYROXINE 100 MCG TABLET PO SCH (05:40)
[2021-09-20] MEDS: ACETAMINOPHEN 325 MG TABLET PO PRN (05:40)
[2021-09-20] MEDS ORDERED: EPOETIN ALFA-EPBX 2,000 UNIT/ML VIAL IV PRN (10:01)
[2021-09-20] MEDS: CHOLECALCIFEROL 1,000 UNIT TABLET PO SCH (14:00)
[2021-09-20] MEDS: METOPROLOL TARTRATE 25 MG TABLET PO SCH ×2 (14:00→21:22)
[2021-09-20] MEDS: MENTHOL/ZINC OXIDE OINT 71 GM JAR TOP SCH ×2 (14:00→21:25)
[2021-09-20] MEDS: predniSONE 20 MG TABLET PEG SCH (14:01)
[2021-09-20] MEDS: amLODIPine 10 MG TABLET PEG SCH (14:01)
[2021-09-20] MEDS: ATORVASTATIN 40 MG TABLET PO SCH (14:01)
[2021-09-20] MEDS: buPROPion 75 MG TABLET PO SCH ×2 (14:01→21:22)
[2021-09-20] MEDS: AMIODARONE 200 MG TABLET PO SCH ×2 (14:01→21:23)
[2021-09-20] MEDS: FAMOTIDINE 8 MG/ML 50 ML/BOTTLE PEG SCH (14:01)
[2021-09-20] MEDS: INSULIN GLARGINE 100 UNIT/ML SUBCUT SCH (14:02)
[2021-09-20] MEDS: ISOSORBIDE DINITRATE 10 MG TABLET PO SCH ×3 (14:02→21:22)
[2021-09-20] MEDS: guaiFENesin/DM ER 600-30 MG TABLET PO PRN (21:23)
[2021-09-21] MEDS: ALBUTEROL/IPRATROPIUM 3 ML NEB RESP TX SCH ×6 (00:51→20:06)
[2021-09-21] MEDS: INSULIN LISPRO 100 UNIT/ML SUBCUT SCH ×4 (01:31→17:24)
[2021-09-21 06:14] LABS: Basophils % 0.1 % (0.0-0.8); Eosinophils % 0.1 % (0.00-10.9); Hematocrit 34.4 VOL% (35.7-47.0); Hemoglobin 10.9 GM/DL (12.0-16.0); Immature Granulocytes % 2.9 %; Immature Granulocytes Absolute 0.26 #; Lymphocytes # 0.8 10*3/uL (1.4-4.0); Lymphocytes % 8.3 % (21.3-54.2); Mean Corpuscular HGB Conc 31.7 GM/DL (32-36); Mean Corpuscular Volume 92.2 FL (87-102); Mean Platelet Volume 9.2 FL (9.6-12.0); Monocytes % 7.2 % (1.7-12.7); Neutrophils % 81.4 % (38.7-73.9); Platelet Count 243 T/CUMM (130-400); Red Blood Count 3.73 MC/CUMM (3.8-5.5); Red Cell Distribution Width 20.5 % (9.3-17.3); White Blood Count 9.1 T/CUMM (4-12)
[2021-09-21 06:44] LABS: Calcium 9.4 MG/DL (8.5-10.1); Osmolality,Calculated 281.1 MOS/KG (273-304); Potassium 3.9 MMOL/L (3.5-5.1)
[2021-09-21] MEDS: LEVOTHYROXINE 100 MCG TABLET PO SCH (09:29)
[2021-09-21] MEDS: MENTHOL/ZINC OXIDE OINT 71 GM JAR TOP SCH ×2 (09:46→21:52)
[2021-09-21] MEDS: buPROPion 75 MG TABLET PO SCH ×2 (09:46→21:52)
[2021-09-21] MEDS: ISOSORBIDE DINITRATE 10 MG TABLET PO SCH ×3 (09:46→21:52)
[2021-09-21] MEDS: INSULIN GLARGINE 100 UNIT/ML SUBCUT SCH (09:46)
[2021-09-21] MEDS: AMIODARONE 200 MG TABLET PO SCH ×2 (09:47→21:52)
[2021-09-21] MEDS: amLODIPine 10 MG TABLET PEG SCH (09:47)
[2021-09-21] MEDS: CHOLECALCIFEROL 1,000 UNIT TABLET PO SCH (09:47)
[2021-09-21] MEDS: predniSONE 20 MG TABLET PEG SCH (09:47)
[2021-09-21] MEDS: FAMOTIDINE 8 MG/ML 50 ML/BOTTLE PEG SCH (09:47)
[2021-09-21] MEDS: METOPROLOL TARTRATE 25 MG TABLET PO SCH ×2 (09:47→21:52)
[2021-09-21] MEDS: ATORVASTATIN 40 MG TABLET PO SCH (09:47)
[2021-09-21] MEDS: FLUCONAZOLE 100 MG TABLET PO SCH (12:27)
[2021-09-21] MEDS: CEFEPIME 1,000 MG in SODIUM CHLORIDE 0.9% 100 ML IV SCH (15:24)
[2021-09-21] MEDS ORDERED: VANCOMYCIN INJ 1,250 MG in SODIUM CHLORIDE 0.9% 250 ML IV SCH (18:00)
[2021-09-21] MEDS: ACETAMINOPHEN 325 MG TABLET PO PRN (19:17)
[2021-09-21] MEDS ORDERED: VANCOMYCIN INJ 1,750 MG in SODIUM CHLORIDE 0.9% 500 ML IV ONE (21:00)
[2021-09-22] MEDS: ALBUTEROL/IPRATROPIUM 3 ML NEB RESP TX SCH ×7 (00:05→23:45)
[2021-09-22] MEDS: CEFEPIME 1,000 MG in SODIUM CHLORIDE 0.9% 100 ML IV SCH ×4 (00:51→22:09)
[2021-09-22] MEDS: INSULIN LISPRO 100 UNIT/ML SUBCUT SCH ×4 (01:00→18:16)
[2021-09-22 05:55] LABS: Basophils % 0.1 % (0.0-0.8); Eosinophils % 0.3 % (0.00-10.9); Hematocrit 29.4 VOL% (35.7-47.0); Hemoglobin 9.3 GM/DL (12.0-16.0); Immature Granulocytes % 2.8 %; Immature Granulocytes Absolute 0.22 #; Mean Corpuscular HGB Conc 31.6 GM/DL (32-36); Mean Corpuscular Volume 92.2 FL (87-102); Mean Platelet Volume 8.9 FL (9.6-12.0); Monocytes % 10.3 % (1.7-12.7); NRBC # 0.02 10*3/uL; Neutrophils % 74.5 % (38.7-73.9); Platelet Count 240 T/CUMM (130-400); Red Blood Count 3.19 MC/CUMM (3.8-5.5); Red Cell Distribution Width 19.9 % (9.3-17.3)
[2021-09-22 06:13] LABS: Calcium 9.1 MG/DL (8.5-10.1); Osmolality,Calculated 279.5 MOS/KG (273-304)
[2021-09-22] MEDS: LEVOTHYROXINE 100 MCG TABLET PO SCH (06:41)
[2021-09-22] MEDS: ISOSORBIDE DINITRATE 10 MG TABLET PO SCH ×3 (10:50→22:08)
[2021-09-22] MEDS: MENTHOL/ZINC OXIDE OINT 71 GM JAR TOP SCH ×2 (10:50→22:09)
[2021-09-22] MEDS: METOPROLOL TARTRATE 25 MG TABLET PO SCH ×2 (10:50→22:09)
[2021-09-22] MEDS: FLUCONAZOLE 100 MG TABLET PO SCH (10:50)
[2021-09-22] MEDS: amLODIPine 10 MG TABLET PEG SCH (10:50)
[2021-09-22] MEDS: INSULIN GLARGINE 100 UNIT/ML SUBCUT SCH (10:50)
[2021-09-22] MEDS: CHOLECALCIFEROL 1,000 UNIT TABLET PO SCH (10:50)
[2021-09-22] MEDS: ATORVASTATIN 40 MG TABLET PO SCH (10:50)
[2021-09-22] MEDS: buPROPion 75 MG TABLET PO SCH ×2 (10:50→22:08)
[2021-09-22] MEDS: AMIODARONE 200 MG TABLET PO SCH ×2 (10:50→22:09)
[2021-09-22] MEDS: FAMOTIDINE 8 MG/ML 50 ML/BOTTLE PEG SCH (10:50)
[2021-09-22] MEDS: predniSONE 20 MG TABLET PEG SCH (10:50)
[2021-09-22] MEDS ORDERED: VANCOMYCIN INJ 500 MG in SODIUM CHLORIDE 0.9% 100 ML IV PRN (17:00)
[2021-09-22] MEDS: ACETAMINOPHEN 325 MG TABLET PO PRN (22:12)
[2021-09-23] MEDS: INSULIN LISPRO 100 UNIT/ML SUBCUT SCH ×4 (01:06→17:54)
[2021-09-23] MEDS: ALBUTEROL/IPRATROPIUM 3 ML NEB RESP TX SCH ×6 (03:32→23:35)
[2021-09-23 06:20] LABS: Basophils % 0.1 % (0.0-0.8); Eosinophils % 0.2 % (0.00-10.9); Hematocrit 30.6 VOL% (35.7-47.0); Hemoglobin 9.8 GM/DL (12.0-16.0); Immature Granulocytes % 3.4 %; Immature Granulocytes Absolute 0.31 #; Lymphocytes # 0.8 10*3/uL (1.4-4.0); Lymphocytes % 8.4 % (21.3-54.2); Mean Corpuscular Volume 92.2 FL (87-102); Monocytes % 7.6 % (1.7-12.7); Neutrophils % 80.3 % (38.7-73.9); Platelet Count 261 T/CUMM (130-400); Red Blood Count 3.32 MC/CUMM (3.8-5.5); Red Cell Distribution Width 19.8 % (9.3-17.3); White Blood Count 9.2 T/CUMM (4-12)
[2021-09-23] MEDS: CEFEPIME 1,000 MG in SODIUM CHLORIDE 0.9% 100 ML IV SCH ×2 (06:33→15:38)
[2021-09-23] MEDS: LEVOTHYROXINE 100 MCG TABLET PO SCH (06:33)
[2021-09-23 06:57] LABS: Calcium 9.6 MG/DL (8.5-10.1); Osmolality,Calculated 279.1 MOS/KG (273-304); Potassium 4.4 MMOL/L (3.5-5.1)
[2021-09-23 07:04] LABS: Hypochromia 1+; Lymphocytes 7 % (20-55); Microcytosis 1+; Platelet Estimate Adequate; Segmented Neutrophils 86 % (50-85); Total Cells Counted 100
[2021-09-23] MEDS: MENTHOL/ZINC OXIDE OINT 71 GM JAR TOP SCH ×2 (10:12→22:14)
[2021-09-23] MEDS: amLODIPine 10 MG TABLET PEG SCH (10:13)
[2021-09-23] MEDS: METOPROLOL TARTRATE 25 MG TABLET PO SCH ×2 (10:13→22:14)
[2021-09-23] MEDS: predniSONE 20 MG TABLET PEG SCH (10:13)
[2021-09-23] MEDS: buPROPion 75 MG TABLET PO SCH ×2 (10:13→22:14)
[2021-09-23] MEDS: ISOSORBIDE DINITRATE 10 MG TABLET PO SCH ×3 (10:13→22:14)
[2021-09-23] MEDS: CHOLECALCIFEROL 1,000 UNIT TABLET PO SCH (10:13)
[2021-09-23] MEDS: INSULIN GLARGINE 100 UNIT/ML SUBCUT SCH (10:14)
[2021-09-23] MEDS: ATORVASTATIN 40 MG TABLET PO SCH (10:14)
[2021-09-23] MEDS: AMIODARONE 200 MG TABLET PO SCH ×2 (10:14→22:14)
[2021-09-23] MEDS: FLUCONAZOLE 100 MG TABLET PO SCH (10:14)
[2021-09-23] MEDS: FAMOTIDINE 8 MG/ML 50 ML/BOTTLE PEG SCH (10:15)
[2021-09-23 13:14] LABS: Hepatitis B Core IgM Quant 0.15 Index; Hepatitis B Surface Ag Quant < 0.10 Index; Hepatitis B Surface Ag Result Non-Reactive (NonReactive); Hepatitis C Virus Ab Quant > 11.00 Index; Hepatitis C Virus Ab Result Reactive (NonReactive)
[2021-09-23] MEDS ORDERED: VANCOMYCIN INJ 500 MG in SODIUM CHLORIDE 0.9% 100 ML IV ONE ×2 (17:00→21:00)
[2021-09-24] MEDS: INSULIN LISPRO 100 UNIT/ML SUBCUT SCH ×5 (01:09→23:59)
[2021-09-24] MEDS: ALBUTEROL/IPRATROPIUM 3 ML NEB RESP TX SCH ×5 (03:25→20:58)
[2021-09-24] MEDS: CEFEPIME 1,000 MG in SODIUM CHLORIDE 0.9% 100 ML IV SCH ×4 (03:36→22:03)
[2021-09-24] MEDS: LEVOTHYROXINE 100 MCG TABLET PO SCH (05:35)
[2021-09-24 05:36] LABS: M. Tuberculosis PCR Result Negative (Negative); M. Tuberculosis PCR Source Pleural fluid
[2021-09-24 06:11] LABS: Calcium 8.9 MG/DL (8.5-10.1); Osmolality,Calculated 276.5 MOS/KG (273-304); Potassium 3.6 MMOL/L (3.5-5.1)
[2021-09-24] MEDS: ISOSORBIDE DINITRATE 10 MG TABLET PO SCH ×3 (09:43→21:39)
[2021-09-24] MEDS: buPROPion 75 MG TABLET PO SCH ×2 (09:43→21:39)
[2021-09-24] MEDS: predniSONE 20 MG TABLET PEG SCH (09:43)
[2021-09-24] MEDS: FLUCONAZOLE 100 MG TABLET PO SCH (09:43)
[2021-09-24] MEDS: amLODIPine 10 MG TABLET PEG SCH (09:43)
[2021-09-24] MEDS: ATORVASTATIN 40 MG TABLET PO SCH (09:43)
[2021-09-24] MEDS: AMIODARONE 200 MG TABLET PO SCH ×2 (09:43→21:40)
[2021-09-24] MEDS: METOPROLOL TARTRATE 25 MG TABLET PO SCH ×2 (09:44→21:39)
[2021-09-24] MEDS: CHOLECALCIFEROL 1,000 UNIT TABLET PO SCH (09:44)
[2021-09-24] MEDS: FAMOTIDINE 8 MG/ML 50 ML/BOTTLE PEG SCH (09:50)
[2021-09-24] MEDS: MENTHOL/ZINC OXIDE OINT 71 GM JAR TOP SCH ×2 (09:52→21:40)
[2021-09-24] MEDS: INSULIN GLARGINE 100 UNIT/ML SUBCUT SCH (09:55)
[2021-09-24] MEDS: ACETAMINOPHEN 325 MG TABLET PO PRN (21:39)
[2021-09-25] MEDS: ALBUTEROL/IPRATROPIUM 3 ML NEB RESP TX SCH ×6 (00:31→20:49)
[2021-09-25] MEDS: CEFEPIME 1,000 MG in SODIUM CHLORIDE 0.9% 100 ML IV SCH ×3 (06:13→22:28)
[2021-09-25] MEDS: LEVOTHYROXINE 100 MCG TABLET PO SCH (06:13)
[2021-09-25] MEDS: INSULIN LISPRO 100 UNIT/ML SUBCUT SCH ×3 (06:40→18:44)
[2021-09-25] MEDS: INSULIN GLARGINE 100 UNIT/ML SUBCUT SCH (09:20)
[2021-09-25] MEDS: MENTHOL/ZINC OXIDE OINT 71 GM JAR TOP SCH ×2 (14:14→21:33)
[2021-09-25] MEDS: predniSONE 20 MG TABLET PEG SCH (14:15)
[2021-09-25] MEDS: METOPROLOL TARTRATE 25 MG TABLET PO SCH ×2 (14:15→21:32)
[2021-09-25] MEDS: FLUCONAZOLE 100 MG TABLET PO SCH (14:15)
[2021-09-25] MEDS: ATORVASTATIN 40 MG TABLET PO SCH (14:15)
[2021-09-25] MEDS: CHOLECALCIFEROL 1,000 UNIT TABLET PO SCH (14:15)
[2021-09-25] MEDS: amLODIPine 10 MG TABLET PEG SCH (14:16)
[2021-09-25] MEDS: buPROPion 75 MG TABLET PO SCH ×2 (14:16→21:32)
[2021-09-25] MEDS: ISOSORBIDE DINITRATE 10 MG TABLET PO SCH ×3 (14:16→21:32)
[2021-09-25] MEDS: AMIODARONE 200 MG TABLET PO SCH ×2 (14:16→21:33)
[2021-09-25] MEDS: FAMOTIDINE 8 MG/ML 50 ML/BOTTLE PEG SCH (14:20)
[2021-09-25] MEDS ORDERED: VANCOMYCIN INJ 500 MG in SODIUM CHLORIDE 0.9% 100 ML IV ONE (17:00)
[2021-09-25] MEDS: ACETAMINOPHEN 325 MG TABLET PO PRN (17:21)
[2021-09-26] MEDS: ALBUTEROL/IPRATROPIUM 3 ML NEB RESP TX SCH ×6 (00:50→20:20)
[2021-09-26] MEDS: INSULIN LISPRO 100 UNIT/ML SUBCUT SCH ×4 (01:46→18:39)
[2021-09-26 05:31] LABS: Basophils % 0.1 % (0.0-0.8); Eosinophils % 0.1 % (0.00-10.9); Hematocrit 31.3 VOL% (35.7-47.0); Hemoglobin 9.7 GM/DL (12.0-16.0); Immature Granulocytes % 3.9 %; Immature Granulocytes Absolute 0.32 #; Lymphocytes # 0.7 10*3/uL (1.4-4.0); Lymphocytes % 8.5 % (21.3-54.2); Mean Corpuscular Volume 94.6 FL (87-102); Mean Platelet Volume 9.2 FL (9.6-12.0); Monocytes % 7.7 % (1.7-12.7); Neutrophils % 79.7 % (38.7-73.9); Platelet Count 253 T/CUMM (130-400); Red Blood Count 3.31 MC/CUMM (3.8-5.5); Red Cell Distribution Width 20.6 % (9.3-17.3); White Blood Count 8.2 T/CUMM (4-12)
[2021-09-26 05:44] LABS: Calcium 8.9 MG/DL (8.5-10.1); Osmolality,Calculated 276.2 MOS/KG (273-304); Potassium 3.8 MMOL/L (3.5-5.1)
[2021-09-26] MEDS: LEVOTHYROXINE 100 MCG TABLET PO SCH (06:39)
[2021-09-26] MEDS: CEFEPIME 1,000 MG in SODIUM CHLORIDE 0.9% 100 ML IV SCH ×3 (07:47→22:37)
[2021-09-26] MEDS: MENTHOL/ZINC OXIDE OINT 71 GM JAR TOP SCH ×2 (10:50→22:36)
[2021-09-26] MEDS: INSULIN GLARGINE 100 UNIT/ML SUBCUT SCH (10:51)
[2021-09-26] MEDS: METOPROLOL TARTRATE 25 MG TABLET PO SCH ×2 (10:51→22:36)
[2021-09-26] MEDS: ISOSORBIDE DINITRATE 10 MG TABLET PO SCH ×3 (10:51→22:36)
[2021-09-26] MEDS: AMIODARONE 200 MG TABLET PO SCH ×2 (10:52→22:36)
[2021-09-26] MEDS: buPROPion 75 MG TABLET PO SCH ×2 (10:52→22:36)
[2021-09-26] MEDS: FAMOTIDINE 8 MG/ML 50 ML/BOTTLE PEG SCH (10:52)
[2021-09-26] MEDS: amLODIPine 10 MG TABLET PEG SCH (10:52)
[2021-09-26] MEDS: FLUCONAZOLE 100 MG TABLET PO SCH (10:52)
[2021-09-26] MEDS: ATORVASTATIN 40 MG TABLET PO SCH (10:52)
[2021-09-26] MEDS: predniSONE 20 MG TABLET PEG SCH (10:52)
[2021-09-26] MEDS: CHOLECALCIFEROL 1,000 UNIT TABLET PO SCH (10:52)
[2021-09-27] MEDS: INSULIN LISPRO 100 UNIT/ML SUBCUT SCH ×4 (01:06→18:23)
[2021-09-27] MEDS: ACETAMINOPHEN 325 MG TABLET PO PRN (01:09)
[2021-09-27] MEDS: ALBUTEROL/IPRATROPIUM 3 ML NEB RESP TX SCH ×6 (01:10→19:34)
[2021-09-27] MEDS: LEVOTHYROXINE 100 MCG TABLET PO SCH (05:20)
[2021-09-27] MEDS: ATORVASTATIN 40 MG TABLET PO SCH (08:49)
[2021-09-27] MEDS: MENTHOL/ZINC OXIDE OINT 71 GM JAR TOP SCH ×2 (08:49→20:17)
[2021-09-27] MEDS: METOPROLOL TARTRATE 25 MG TABLET PO SCH ×2 (08:49→20:15)
[2021-09-27] MEDS: amLODIPine 10 MG TABLET PEG SCH (08:49)
[2021-09-27] MEDS: ISOSORBIDE DINITRATE 10 MG TABLET PO SCH ×3 (08:49→20:15)
[2021-09-27] MEDS: predniSONE 20 MG TABLET PEG SCH (08:49)
[2021-09-27] MEDS: AMIODARONE 200 MG TABLET PO SCH ×2 (08:49→20:16)
[2021-09-27] MEDS: buPROPion 75 MG TABLET PO SCH ×2 (08:49→20:15)
[2021-09-27] MEDS: CHOLECALCIFEROL 1,000 UNIT TABLET PO SCH (08:49)
[2021-09-27] MEDS: FLUCONAZOLE 100 MG TABLET PO SCH (08:49)
[2021-09-27] MEDS: ONDANSETRON 4 MG/2 ML VIAL IV PRN (08:50)
[2021-09-27] MEDS: CEFEPIME 1,000 MG in SODIUM CHLORIDE 0.9% 100 ML IV SCH ×3 (08:50→23:40)
[2021-09-27] MEDS: INSULIN GLARGINE 100 UNIT/ML SUBCUT SCH (08:51)
[2021-09-27] MEDS: FAMOTIDINE 8 MG/ML 50 ML/BOTTLE PEG SCH (08:54)
[2021-09-27] MEDS ORDERED: VANCOMYCIN INJ 500 MG in SODIUM CHLORIDE 0.9% 100 ML IV ONE (17:00)
[2021-09-28] MEDS: ALBUTEROL/IPRATROPIUM 3 ML NEB RESP TX SCH ×6 (01:34→20:00)
[2021-09-28] MEDS: INSULIN LISPRO 100 UNIT/ML SUBCUT SCH ×4 (02:25→18:38)
[2021-09-28] MEDS: LEVOTHYROXINE 100 MCG TABLET PO SCH (06:01)
[2021-09-28] MEDS: CEFEPIME 1,000 MG in SODIUM CHLORIDE 0.9% 100 ML IV SCH (07:40)
[2021-09-28] MEDS: CHOLECALCIFEROL 1,000 UNIT TABLET PO SCH (10:05)
[2021-09-28] MEDS: INSULIN GLARGINE 100 UNIT/ML SUBCUT SCH (10:06)
[2021-09-28] MEDS: METOPROLOL TARTRATE 25 MG TABLET PO SCH ×2 (10:06→21:38)
[2021-09-28] MEDS: FLUCONAZOLE 100 MG TABLET PO SCH (10:06)
[2021-09-28] MEDS: buPROPion 75 MG TABLET PO SCH ×2 (10:06→21:38)
[2021-09-28] MEDS: ISOSORBIDE DINITRATE 10 MG TABLET PO SCH ×3 (10:06→21:37)
[2021-09-28] MEDS: AMIODARONE 200 MG TABLET PO SCH ×2 (10:06→21:39)
[2021-09-28] MEDS: ATORVASTATIN 40 MG TABLET PO SCH (10:06)
[2021-09-28] MEDS: predniSONE 20 MG TABLET PEG SCH (10:06)
[2021-09-28] MEDS: amLODIPine 10 MG TABLET PEG SCH (10:07)
[2021-09-28] MEDS: FAMOTIDINE 8 MG/ML 50 ML/BOTTLE PEG SCH (10:28)
[2021-09-28] MEDS: MENTHOL/ZINC OXIDE OINT 71 GM JAR TOP SCH (10:28)
[2021-09-29] MEDS: ALBUTEROL/IPRATROPIUM 3 ML NEB RESP TX SCH ×7 (00:27→23:26)
[2021-09-29] MEDS: ACETAMINOPHEN 325 MG TABLET PO PRN ×3 (00:42→21:37)
[2021-09-29] MEDS: INSULIN LISPRO 100 UNIT/ML SUBCUT SCH ×5 (00:51→23:49)
[2021-09-29] MEDS: ONDANSETRON 4 MG/2 ML VIAL IV PRN ×2 (01:34→21:38)
[2021-09-29] MEDS: LEVOTHYROXINE 100 MCG TABLET PO SCH (05:33)
[2021-09-29] MEDS: AMIODARONE 200 MG TABLET PO SCH ×2 (09:22→21:38)
[2021-09-29] MEDS: CHOLECALCIFEROL 1,000 UNIT TABLET PO SCH (09:22)
[2021-09-29] MEDS: ISOSORBIDE DINITRATE 10 MG TABLET PO SCH ×3 (09:22→21:37)
[2021-09-29] MEDS: buPROPion 75 MG TABLET PO SCH ×2 (09:22→21:37)
[2021-09-29] MEDS: INSULIN GLARGINE 100 UNIT/ML SUBCUT SCH (09:22)
[2021-09-29] MEDS: amLODIPine 10 MG TABLET PEG SCH (09:22)
[2021-09-29] MEDS: METOPROLOL TARTRATE 25 MG TABLET PO SCH ×2 (09:22→21:37)
[2021-09-29] MEDS: ATORVASTATIN 40 MG TABLET PO SCH (09:22)
[2021-09-29] MEDS: predniSONE 20 MG TABLET PEG SCH (09:22)
[2021-09-29] MEDS: MENTHOL/ZINC OXIDE OINT 71 GM JAR TOP SCH ×3 (09:23→21:38)
[2021-09-29] MEDS: FAMOTIDINE 8 MG/ML 50 ML/BOTTLE PEG SCH (09:37)
[2021-09-29] MEDS: BISACODYL 5 MG TABLET PO PRN (21:38)
[2021-09-30] MEDS: ALBUTEROL/IPRATROPIUM 3 ML NEB RESP TX SCH ×5 (03:30→20:27)
[2021-09-30] MEDS: INSULIN LISPRO 100 UNIT/ML SUBCUT SCH (06:15)
[2021-09-30] MEDS: LEVOTHYROXINE 100 MCG TABLET PO SCH (06:15)
[2021-09-30] MEDS: MENTHOL/ZINC OXIDE OINT 71 GM JAR TOP SCH ×2 (09:33→22:15)
[2021-09-30] MEDS: ISOSORBIDE DINITRATE 10 MG TABLET PO SCH ×3 (09:34→22:15)
[2021-09-30] MEDS: INSULIN GLARGINE 100 UNIT/ML SUBCUT SCH (09:34)
[2021-09-30] MEDS: amLODIPine 10 MG TABLET PEG SCH (09:35)
[2021-09-30] MEDS: buPROPion 75 MG TABLET PO SCH ×2 (09:35→22:15)
[2021-09-30] MEDS: ATORVASTATIN 40 MG TABLET PO SCH (09:35)
[2021-09-30] MEDS: METOPROLOL TARTRATE 25 MG TABLET PO SCH ×2 (09:35→22:15)
[2021-09-30] MEDS: CHOLECALCIFEROL 1,000 UNIT TABLET PO SCH (09:35)
[2021-09-30] MEDS: AMIODARONE 200 MG TABLET PO SCH ×2 (09:36→22:16)
[2021-09-30] MEDS: predniSONE 20 MG TABLET PEG SCH (09:36)
[2021-09-30] MEDS: FAMOTIDINE 8 MG/ML 50 ML/BOTTLE PEG SCH (09:45)
[2021-10-01] MEDS: ALBUTEROL/IPRATROPIUM 3 ML NEB RESP TX SCH ×7 (00:09→22:54)
[2021-10-01] MEDS: LEVOTHYROXINE 100 MCG TABLET PO SCH (05:30)
[2021-10-01 05:36] LABS: Basophils % 0.2 % (0.0-0.8); Eosinophils % 0.4 % (0.00-10.9); Hematocrit 33.4 VOL% (35.7-47.0); Hemoglobin 10.3 GM/DL (12.0-16.0); Immature Granulocytes % 1.5 %; Immature Granulocytes Absolute 0.15 #; Lymphocytes # 0.8 10*3/uL (1.4-4.0); Lymphocytes % 7.6 % (21.3-54.2); Mean Corpuscular HGB Conc 30.8 GM/DL (32-36); Mean Platelet Volume 9.9 FL (9.6-12.0); Monocytes % 9.4 % (1.7-12.7); Neutrophils % 80.9 % (38.7-73.9); Platelet Count 224 T/CUMM (130-400); Red Blood Count 3.48 MC/CUMM (3.8-5.5); Red Cell Distribution Width 21.9 % (9.3-17.3); White Blood Count 10.2 T/CUMM (4-12)
[2021-10-01 05:57] LABS: Calcium 9.1 MG/DL (8.5-10.1); Osmolality,Calculated 279.8 MOS/KG (273-304); Potassium 3.8 MMOL/L (3.5-5.1)
[2021-10-01] MEDS: CHOLECALCIFEROL 1,000 UNIT TABLET PO SCH (09:25)
[2021-10-01] MEDS: INSULIN GLARGINE 100 UNIT/ML SUBCUT SCH (09:25)
[2021-10-01] MEDS: predniSONE 10 MG TABLET PEG SCH (09:25)
[2021-10-01] MEDS: amLODIPine 10 MG TABLET PEG SCH (09:25)
[2021-10-01] MEDS: ATORVASTATIN 40 MG TABLET PO SCH (09:25)
[2021-10-01] MEDS: AMIODARONE 200 MG TABLET PO SCH ×2 (09:25→21:54)
[2021-10-01] MEDS: METOPROLOL TARTRATE 25 MG TABLET PO SCH ×2 (09:25→21:54)
[2021-10-01] MEDS: ISOSORBIDE DINITRATE 10 MG TABLET PO SCH ×3 (09:25→21:54)
[2021-10-01] MEDS: buPROPion 75 MG TABLET PO SCH ×2 (09:25→21:54)
[2021-10-01] MEDS: FAMOTIDINE 8 MG/ML 50 ML/BOTTLE PEG SCH (09:26)
[2021-10-01] MEDS: MENTHOL/ZINC OXIDE OINT 71 GM JAR TOP SCH ×2 (10:30→21:54)
[2021-10-02] MEDS: ALBUTEROL/IPRATROPIUM 3 ML NEB RESP TX SCH ×6 (03:13→23:39)
[2021-10-02] MEDS: LEVOTHYROXINE 100 MCG TABLET PO SCH (05:28)
[2021-10-02 05:48] LABS: Calcium 9.3 MG/DL (8.5-10.1); Osmolality,Calculated 282.1 MOS/KG (273-304)
[2021-10-02] MEDS: amLODIPine 10 MG TABLET PEG SCH ×2 (07:29→09:25)
[2021-10-02] MEDS: predniSONE 10 MG TABLET PEG SCH ×2 (07:29→09:25)
[2021-10-02] MEDS: AMIODARONE 200 MG TABLET PO SCH ×3 (07:29→21:53)
[2021-10-02] MEDS: ISOSORBIDE DINITRATE 10 MG TABLET PO SCH ×4 (07:29→21:52)
[2021-10-02] MEDS: CHOLECALCIFEROL 1,000 UNIT TABLET PO SCH ×2 (07:30→09:25)
[2021-10-02] MEDS: METOPROLOL TARTRATE 25 MG TABLET PO SCH ×3 (07:30→21:53)
[2021-10-02] MEDS: ATORVASTATIN 40 MG TABLET PO SCH ×2 (07:30→09:24)
[2021-10-02] MEDS: buPROPion 75 MG TABLET PO SCH ×3 (07:30→21:52)
[2021-10-02] MEDS: FAMOTIDINE 8 MG/ML 50 ML/BOTTLE PEG SCH ×2 (07:31→09:25)
[2021-10-02] MEDS: INSULIN GLARGINE 100 UNIT/ML SUBCUT SCH (09:00)
[2021-10-02] MEDS: MENTHOL/ZINC OXIDE OINT 71 GM JAR TOP SCH ×2 (13:30→21:53)
[2021-10-03] MEDS: ALBUTEROL/IPRATROPIUM 3 ML NEB RESP TX SCH ×5 (03:34→20:04)
[2021-10-03] MEDS: LEVOTHYROXINE 100 MCG TABLET PO SCH (05:33)
[2021-10-03] MEDS: ATORVASTATIN 40 MG TABLET PO SCH (10:07)
[2021-10-03] MEDS: CHOLECALCIFEROL 1,000 UNIT TABLET PO SCH (10:07)
[2021-10-03] MEDS: buPROPion 75 MG TABLET PO SCH ×2 (10:08→21:08)
[2021-10-03] MEDS: amLODIPine 10 MG TABLET PEG SCH (10:08)
[2021-10-03] MEDS: METOPROLOL TARTRATE 25 MG TABLET PO SCH ×2 (10:08→21:08)
[2021-10-03] MEDS: ISOSORBIDE DINITRATE 10 MG TABLET PO SCH ×3 (10:08→21:08)
[2021-10-03] MEDS: AMIODARONE 200 MG TABLET PO SCH ×2 (10:08→21:09)
[2021-10-03] MEDS: INSULIN GLARGINE 100 UNIT/ML SUBCUT SCH (10:08)
[2021-10-03] MEDS: predniSONE 10 MG TABLET PEG SCH (10:08)
[2021-10-03] MEDS: FAMOTIDINE 8 MG/ML 50 ML/BOTTLE PEG SCH (10:11)
[2021-10-03] MEDS: MENTHOL/ZINC OXIDE OINT 71 GM JAR TOP SCH ×2 (10:11→21:09)
[2021-10-04] MEDS: ALBUTEROL/IPRATROPIUM 3 ML NEB RESP TX SCH ×5 (00:04→19:48)
[2021-10-04] MEDS: LEVOTHYROXINE 100 MCG TABLET PO SCH (05:49)
[2021-10-04] MEDS: predniSONE 10 MG TABLET PEG SCH (09:27)
[2021-10-04] MEDS: METOPROLOL TARTRATE 25 MG TABLET PO SCH ×2 (09:28→20:49)
[2021-10-04] MEDS: buPROPion 75 MG TABLET PO SCH ×2 (09:28→20:49)
[2021-10-04] MEDS: ISOSORBIDE DINITRATE 10 MG TABLET PO SCH ×3 (09:28→20:49)
[2021-10-04] MEDS: amLODIPine 10 MG TABLET PEG SCH (09:28)
[2021-10-04] MEDS: AMIODARONE 200 MG TABLET PO SCH ×2 (09:29→20:49)
[2021-10-04] MEDS: MENTHOL/ZINC OXIDE OINT 71 GM JAR TOP SCH ×2 (09:30→20:48)
[2021-10-04] MEDS: FAMOTIDINE 8 MG/ML 50 ML/BOTTLE PEG SCH (09:30)
[2021-10-04] MEDS: CHOLECALCIFEROL 1,000 UNIT TABLET PO SCH (09:31)
[2021-10-04] MEDS: INSULIN GLARGINE 100 UNIT/ML SUBCUT SCH (09:31)
[2021-10-04] MEDS: ATORVASTATIN 40 MG TABLET PO SCH (20:06)
[2021-10-05] MEDS: ALBUTEROL/IPRATROPIUM 3 ML NEB RESP TX SCH ×6 (00:12→20:17)
[2021-10-05] MEDS: LEVOTHYROXINE 100 MCG TABLET PO SCH (06:20)
[2021-10-05] MEDS: INSULIN GLARGINE 100 UNIT/ML SUBCUT SCH (09:01)
[2021-10-05] MEDS: guaiFENesin/DM ER 600-30 MG TABLET PO PRN (09:01)
[2021-10-05] MEDS: predniSONE 10 MG TABLET PEG SCH (09:02)
[2021-10-05] MEDS: CHOLECALCIFEROL 1,000 UNIT TABLET PO SCH (09:02)
[2021-10-05] MEDS: METOPROLOL TARTRATE 25 MG TABLET PO SCH ×2 (09:02→23:23)
[2021-10-05] MEDS: buPROPion 75 MG TABLET PO SCH ×2 (09:02→23:23)
[2021-10-05] MEDS: ISOSORBIDE DINITRATE 10 MG TABLET PO SCH ×3 (09:02→23:23)
[2021-10-05] MEDS: ATORVASTATIN 40 MG TABLET PO SCH (09:03)
[2021-10-05] MEDS: amLODIPine 10 MG TABLET PEG SCH (09:03)
[2021-10-05] MEDS: AMIODARONE 200 MG TABLET PO SCH ×2 (09:04→23:23)
[2021-10-05] MEDS: MENTHOL/ZINC OXIDE OINT 71 GM JAR TOP SCH ×2 (09:04→21:07)
[2021-10-05] MEDS: FAMOTIDINE 8 MG/ML 50 ML/BOTTLE PEG SCH (09:04)
[2021-10-06] MEDS: ALBUTEROL/IPRATROPIUM 3 ML NEB RESP TX SCH ×7 (00:26→23:38)
[2021-10-06] MEDS: LEVOTHYROXINE 100 MCG TABLET PO SCH (08:06)
[2021-10-06] MEDS: INSULIN GLARGINE 100 UNIT/ML SUBCUT SCH (11:41)
[2021-10-06] MEDS: ISOSORBIDE DINITRATE 10 MG TABLET PO SCH ×3 (11:42→21:43)
[2021-10-06] MEDS: amLODIPine 10 MG TABLET PEG SCH (11:42)
[2021-10-06] MEDS: CHOLECALCIFEROL 1,000 UNIT TABLET PO SCH (11:42)
[2021-10-06] MEDS: AMIODARONE 200 MG TABLET PO SCH ×2 (11:42→21:43)
[2021-10-06] MEDS: ATORVASTATIN 40 MG TABLET PO SCH (11:42)
[2021-10-06] MEDS: METOPROLOL TARTRATE 25 MG TABLET PO SCH ×2 (11:43→21:43)
[2021-10-06] MEDS: buPROPion 75 MG TABLET PO SCH ×2 (11:43→21:43)
[2021-10-06] MEDS: predniSONE 10 MG TABLET PEG SCH (11:43)
[2021-10-06] MEDS: MENTHOL/ZINC OXIDE OINT 71 GM JAR TOP SCH ×2 (11:44→21:43)
[2021-10-06] MEDS: FAMOTIDINE 8 MG/ML 50 ML/BOTTLE PEG SCH (11:44)
[2021-10-07 05:45] LABS: Basophils % 0.2 % (0.0-0.8); Eosinophils # 0.1 10*3/uL (0.0-0.87); Eosinophils % 1.4 % (0.00-10.9); Hemoglobin 9.3 GM/DL (12.0-16.0); Immature Granulocytes Absolute 0.13 #; Lymphocytes # 0.9 10*3/uL (1.4-4.0); Lymphocytes % 13.4 % (21.3-54.2); Mean Corpuscular HGB Conc 32.1 GM/DL (32-36); Mean Corpuscular Volume 93.9 FL (87-102); Monocytes % 10.8 % (1.7-12.7); Neutrophils % 72.2 % (38.7-73.9); Platelet Count 191 T/CUMM (130-400); Red Blood Count 3.09 MC/CUMM (3.8-5.5); White Blood Count 6.7 T/CUMM (4-12)
[2021-10-07 05:59] LABS: Calcium 9.8 MG/DL (8.5-10.1); Osmolality,Calculated 279.7 MOS/KG (273-304); Potassium 4.2 MMOL/L (3.5-5.1)
[2021-10-07 06:09] LABS: Anisocytosis 2+; Macrocytosis Slight; Platelet Estimate Normal
[2021-10-07] MEDS: LEVOTHYROXINE 100 MCG TABLET PO SCH (06:15)
[2021-10-07] MEDS: ALBUTEROL/IPRATROPIUM 3 ML NEB RESP TX SCH ×5 (07:49→23:43)
[2021-10-07] MEDS: ATORVASTATIN 40 MG TABLET PO SCH (08:41)
[2021-10-07] MEDS: ISOSORBIDE DINITRATE 10 MG TABLET PO SCH ×3 (08:41→20:52)
[2021-10-07] MEDS: buPROPion 75 MG TABLET PO SCH ×2 (08:41→20:53)
[2021-10-07] MEDS: INSULIN GLARGINE 100 UNIT/ML SUBCUT SCH (08:41)
[2021-10-07] MEDS: predniSONE 10 MG TABLET PEG SCH (08:42)
[2021-10-07] MEDS: AMIODARONE 200 MG TABLET PO SCH ×2 (08:42→20:53)
[2021-10-07] MEDS: CHOLECALCIFEROL 1,000 UNIT TABLET PO SCH (08:42)
[2021-10-07] MEDS: FAMOTIDINE 8 MG/ML 50 ML/BOTTLE PEG SCH (08:49)
[2021-10-07] MEDS: MENTHOL/ZINC OXIDE OINT 71 GM JAR TOP SCH ×2 (08:49→23:15)
[2021-10-07] MEDS: guaiFENesin/DM ER 600-30 MG TABLET PO PRN (08:58)
[2021-10-07] MEDS: ACETAMINOPHEN 325 MG TABLET PO PRN (08:58)
[2021-10-07] MEDS ORDERED: EPOETIN ALFA-EPBX 2,000 UNIT/ML VIAL IV PRN (09:02)
[2021-10-07] MEDS: amLODIPine 10 MG TABLET PEG SCH (10:06)
[2021-10-07] MEDS: METOPROLOL TARTRATE 25 MG TABLET PO SCH ×2 (10:06→20:52)
[2021-10-08] MEDS: ALBUTEROL/IPRATROPIUM 3 ML NEB RESP TX SCH ×7 (03:17→23:45)
[2021-10-08] MEDS: LEVOTHYROXINE 100 MCG TABLET PO SCH (05:10)
[2021-10-08] MEDS: DEXTROSE 50% 25 GM/50 ML SYRINGE IV PRN (05:26)
[2021-10-08] MEDS: guaiFENesin/DM ER 600-30 MG TABLET PO PRN (10:25)
[2021-10-08] MEDS: ISOSORBIDE DINITRATE 10 MG TABLET PO SCH ×3 (10:25→21:44)
[2021-10-08] MEDS: MENTHOL/ZINC OXIDE OINT 71 GM JAR TOP SCH ×2 (10:26→21:48)
[2021-10-08] MEDS: buPROPion 75 MG TABLET PO SCH ×2 (10:26→21:44)
[2021-10-08] MEDS: CHOLECALCIFEROL 1,000 UNIT TABLET PO SCH (10:26)
[2021-10-08] MEDS: ATORVASTATIN 40 MG TABLET PO SCH (10:26)
[2021-10-08] MEDS: METOPROLOL TARTRATE 25 MG TABLET PO SCH ×2 (10:26→21:44)
[2021-10-08] MEDS: predniSONE 10 MG TABLET PEG SCH (10:26)
[2021-10-08] MEDS: AMIODARONE 200 MG TABLET PO SCH ×2 (10:26→21:44)
[2021-10-08] MEDS: amLODIPine 10 MG TABLET PEG SCH (10:26)
[2021-10-08] MEDS: FAMOTIDINE 8 MG/ML 50 ML/BOTTLE PEG SCH (10:27)
[2021-10-08] MEDS: INSULIN GLARGINE 100 UNIT/ML SUBCUT SCH (11:12)
[2021-10-09] MEDS: ALBUTEROL/IPRATROPIUM 3 ML NEB RESP TX SCH ×6 (03:45→23:59)
[2021-10-09] MEDS: LEVOTHYROXINE 100 MCG TABLET PO SCH (05:39)
[2021-10-09 05:50] LABS: Calcium 9.2 MG/DL (8.5-10.1); Osmolality,Calculated 280.4 MOS/KG (273-304); Potassium 3.8 MMOL/L (3.5-5.1)
[2021-10-09] MEDS: MENTHOL/ZINC OXIDE OINT 71 GM JAR TOP SCH ×2 (10:00→21:23)
[2021-10-09] MEDS: INSULIN GLARGINE 100 UNIT/ML SUBCUT SCH (11:09)
[2021-10-09] MEDS: ISOSORBIDE DINITRATE 10 MG TABLET PO SCH ×3 (11:09→21:20)
[2021-10-09] MEDS: AMIODARONE 200 MG TABLET PO SCH ×2 (11:09→21:21)
[2021-10-09] MEDS: METOPROLOL TARTRATE 25 MG TABLET PO SCH ×2 (11:10→21:21)
[2021-10-09] MEDS: ATORVASTATIN 40 MG TABLET PO SCH (11:10)
[2021-10-09] MEDS: buPROPion 75 MG TABLET PO SCH ×2 (11:10→21:20)
[2021-10-09] MEDS: FAMOTIDINE 8 MG/ML 50 ML/BOTTLE PEG SCH (11:10)
[2021-10-09] MEDS: CHOLECALCIFEROL 1,000 UNIT TABLET PO SCH (11:10)
[2021-10-09] MEDS: amLODIPine 10 MG TABLET PEG SCH (11:10)
[2021-10-10] MEDS: ALBUTEROL/IPRATROPIUM 3 ML NEB RESP TX SCH ×6 (03:15→23:40)
[2021-10-10] MEDS: LEVOTHYROXINE 100 MCG TABLET PO SCH (06:14)
[2021-10-10] MEDS: METOPROLOL TARTRATE 25 MG TABLET PO SCH ×2 (09:14→21:35)
[2021-10-10] MEDS: CHOLECALCIFEROL 1,000 UNIT TABLET PO SCH (09:14)
[2021-10-10] MEDS: buPROPion 75 MG TABLET PO SCH ×2 (09:14→21:35)
[2021-10-10] MEDS: ISOSORBIDE DINITRATE 10 MG TABLET PO SCH ×3 (09:14→21:35)
[2021-10-10] MEDS: FAMOTIDINE 8 MG/ML 50 ML/BOTTLE PEG SCH (09:14)
[2021-10-10] MEDS: MENTHOL/ZINC OXIDE OINT 71 GM JAR TOP SCH ×2 (09:14→21:35)
[2021-10-10] MEDS: AMIODARONE 200 MG TABLET PO SCH ×2 (09:15→21:35)
[2021-10-10] MEDS: INSULIN GLARGINE 100 UNIT/ML SUBCUT SCH (09:15)
[2021-10-10] MEDS: ATORVASTATIN 40 MG TABLET PO SCH (09:15)
[2021-10-10] MEDS: amLODIPine 10 MG TABLET PEG SCH (09:15)
[2021-10-11] MEDS: ALBUTEROL/IPRATROPIUM 3 ML NEB RESP TX SCH ×5 (04:35→19:21)
[2021-10-11] MEDS: LEVOTHYROXINE 100 MCG TABLET PO SCH (05:52)
[2021-10-11] MEDS: ONDANSETRON 4 MG/2 ML VIAL IV PRN (06:29)
[2021-10-11] MEDS: CHOLECALCIFEROL 1,000 UNIT TABLET PO SCH (08:29)
[2021-10-11] MEDS: ATORVASTATIN 40 MG TABLET PO SCH (08:29)
[2021-10-11] MEDS: buPROPion 75 MG TABLET PO SCH ×2 (08:30→21:16)
[2021-10-11] MEDS: FAMOTIDINE 8 MG/ML 50 ML/BOTTLE PEG SCH (08:30)
[2021-10-11] MEDS: amLODIPine 10 MG TABLET PEG SCH (08:30)
[2021-10-11] MEDS: ISOSORBIDE DINITRATE 10 MG TABLET PO SCH ×3 (08:30→21:16)
[2021-10-11] MEDS: INSULIN GLARGINE 100 UNIT/ML SUBCUT SCH (08:30)
[2021-10-11] MEDS: METOPROLOL TARTRATE 25 MG TABLET PO SCH ×2 (08:30→21:16)
[2021-10-11] MEDS: AMIODARONE 200 MG TABLET PO SCH ×2 (08:30→21:16)
[2021-10-11] MEDS: MENTHOL/ZINC OXIDE OINT 71 GM JAR TOP SCH ×2 (09:47→21:17)
[2021-10-11 11:09] LABS: % Iron Saturation 47.9 % (18-50); Ferritin 1764.6 ng/mL (8-252)
[2021-10-11] MEDS: guaiFENesin/DM ER 600-30 MG TABLET PO PRN (21:17)
[2021-10-12] MEDS: ALBUTEROL/IPRATROPIUM 3 ML NEB RESP TX SCH ×7 (00:04→23:20)
[2021-10-12] MEDS: LEVOTHYROXINE 100 MCG TABLET PO SCH (08:43)
[2021-10-12] MEDS: INSULIN GLARGINE 100 UNIT/ML SUBCUT SCH (08:43)
[2021-10-12] MEDS: buPROPion 75 MG TABLET PO SCH ×2 (08:43→21:33)
[2021-10-12] MEDS: amLODIPine 10 MG TABLET PEG SCH (08:43)
[2021-10-12] MEDS: ISOSORBIDE DINITRATE 10 MG TABLET PO SCH ×3 (08:43→21:32)
[2021-10-12] MEDS: AMIODARONE 200 MG TABLET PO SCH ×2 (08:43→21:32)
[2021-10-12] MEDS: CHOLECALCIFEROL 1,000 UNIT TABLET PO SCH (08:43)
[2021-10-12] MEDS: METOPROLOL TARTRATE 25 MG TABLET PO SCH ×2 (08:43→21:32)
[2021-10-12] MEDS: ATORVASTATIN 40 MG TABLET PO SCH (08:44)
[2021-10-12] MEDS: FAMOTIDINE 8 MG/ML 50 ML/BOTTLE PEG SCH (08:44)
[2021-10-12] MEDS: MENTHOL/ZINC OXIDE OINT 71 GM JAR TOP SCH ×2 (08:44→21:33)
[2021-10-13] MEDS: ALBUTEROL/IPRATROPIUM 3 ML NEB RESP TX SCH ×6 (04:35→22:57)
[2021-10-13] MEDS: LEVOTHYROXINE 100 MCG TABLET PO SCH (05:49)
[2021-10-13] MEDS: amLODIPine 10 MG TABLET PEG SCH (09:36)
[2021-10-13] MEDS: ATORVASTATIN 40 MG TABLET PO SCH (09:36)
[2021-10-13] MEDS: ISOSORBIDE DINITRATE 10 MG TABLET PO SCH ×3 (09:36→21:57)
[2021-10-13] MEDS: METOPROLOL TARTRATE 25 MG TABLET PO SCH ×2 (09:36→21:57)
[2021-10-13] MEDS: buPROPion 75 MG TABLET PO SCH ×2 (09:36→21:56)
[2021-10-13] MEDS: CHOLECALCIFEROL 1,000 UNIT TABLET PO SCH (09:36)
[2021-10-13] MEDS: MENTHOL/ZINC OXIDE OINT 71 GM JAR TOP SCH ×2 (09:37→21:57)
[2021-10-13] MEDS: FAMOTIDINE 8 MG/ML 50 ML/BOTTLE PEG SCH (09:37)
[2021-10-13] MEDS: INSULIN GLARGINE 100 UNIT/ML SUBCUT SCH (09:37)
[2021-10-13] MEDS: AMIODARONE 200 MG TABLET PO SCH ×2 (09:37→21:57)
[2021-10-13] MEDS: ONDANSETRON 4 MG/2 ML VIAL IV PRN (15:48)
[2021-10-13] MEDS: ACETAMINOPHEN 325 MG TABLET PO PRN (18:44)
[2021-10-14] MEDS: ALBUTEROL/IPRATROPIUM 3 ML NEB RESP TX SCH ×2 (03:28→10:16)
[2021-10-14 05:40] LABS: Basophils % 0.3 % (0.0-0.8); Eosinophils # 0.1 10*3/uL (0.0-0.87); Eosinophils % 2.1 % (0.00-10.9); Hematocrit 32.8 VOL% (35.7-47.0); Hemoglobin 10.3 GM/DL (12.0-16.0); Immature Granulocytes % 1.4 %; Immature Granulocytes Absolute 0.09 #; Lymphocytes % 15.2 % (21.3-54.2); Mean Corpuscular HGB Conc 31.4 GM/DL (32-36); Mean Corpuscular Volume 95.6 FL (87-102); Mean Platelet Volume 9.4 FL (9.6-12.0); Monocytes % 12.6 % (1.7-12.7); Neutrophils % 68.4 % (38.7-73.9); Platelet Count 264 T/CUMM (130-400); Red Blood Count 3.43 MC/CUMM (3.8-5.5); Red Cell Distribution Width 18.7 % (9.3-17.3); White Blood Count 6.6 T/CUMM (4-12)
[2021-10-14] MEDS: LEVOTHYROXINE 100 MCG TABLET PO SCH (06:02)
[2021-10-14 06:03] LABS: Calcium 10.4 MG/DL (8.5-10.1); Osmolality,Calculated 284.4 MOS/KG (273-304); Potassium 3.7 MMOL/L (3.5-5.1)
[2021-10-14] MEDS ORDERED: ALBUTEROL/IPRATROPIUM 3 ML NEB RESP TX PRN (10:29)
[2021-10-14] MEDS: buPROPion 75 MG TABLET PO SCH ×2 (13:00→21:42)
[2021-10-14] MEDS: ATORVASTATIN 40 MG TABLET PO SCH (13:00)
[2021-10-14] MEDS: AMIODARONE 200 MG TABLET PO SCH ×2 (13:00→21:41)
[2021-10-14] MEDS: amLODIPine 10 MG TABLET PEG SCH (13:00)
[2021-10-14] MEDS: FAMOTIDINE 8 MG/ML 50 ML/BOTTLE PEG SCH (13:00)
[2021-10-14] MEDS: METOPROLOL TARTRATE 25 MG TABLET PO SCH ×2 (13:00→21:42)
[2021-10-14] MEDS: MENTHOL/ZINC OXIDE OINT 71 GM JAR TOP SCH ×2 (13:00→21:41)
[2021-10-14] MEDS: ISOSORBIDE DINITRATE 10 MG TABLET PO SCH ×3 (13:07→21:41)
[2021-10-14] MEDS: INSULIN GLARGINE 100 UNIT/ML SUBCUT SCH (13:07)
[2021-10-14] MEDS: CHOLECALCIFEROL 1,000 UNIT TABLET PO SCH (13:08)
[2021-10-14] MEDS: ONDANSETRON 4 MG/2 ML VIAL IV PRN (14:15)
[2021-10-14] MEDS: ACETAMINOPHEN 325 MG TABLET PO PRN (21:42)
[2021-10-15] MEDS: ONDANSETRON 4 MG/2 ML VIAL IV PRN ×2 (00:38→15:02)
[2021-10-15] MEDS: LEVOTHYROXINE 100 MCG TABLET PO SCH (06:07)
[2021-10-15] MEDS: INSULIN GLARGINE 100 UNIT/ML SUBCUT SCH (09:47)
[2021-10-15] MEDS: MENTHOL/ZINC OXIDE OINT 71 GM JAR TOP SCH ×2 (09:48→22:21)
[2021-10-15] MEDS: ATORVASTATIN 40 MG TABLET PO SCH (09:48)
[2021-10-15] MEDS: CHOLECALCIFEROL 1,000 UNIT TABLET PO SCH (09:48)
[2021-10-15] MEDS: METOPROLOL TARTRATE 25 MG TABLET PO SCH ×2 (09:48→22:21)
[2021-10-15] MEDS: ISOSORBIDE DINITRATE 10 MG TABLET PO SCH ×3 (09:48→22:21)
[2021-10-15] MEDS: buPROPion 75 MG TABLET PO SCH ×2 (09:48→22:21)
[2021-10-15] MEDS: AMIODARONE 200 MG TABLET PO SCH ×2 (09:48→22:22)
[2021-10-15] MEDS: amLODIPine 10 MG TABLET PEG SCH (09:48)
[2021-10-15] MEDS: FAMOTIDINE 8 MG/ML 50 ML/BOTTLE PEG SCH (10:45)
[2021-10-15] MEDS: BISACODYL 5 MG TABLET PO PRN (22:23)
[2021-10-16] MEDS: LEVOTHYROXINE 100 MCG TABLET PO SCH (05:22)
[2021-10-16] MEDS: ATORVASTATIN 40 MG TABLET PO SCH (08:46)
[2021-10-16] MEDS: ISOSORBIDE DINITRATE 10 MG TABLET PO SCH ×3 (08:46→21:31)
[2021-10-16] MEDS: MENTHOL/ZINC OXIDE OINT 71 GM JAR TOP SCH ×2 (08:47→21:34)
[2021-10-16] MEDS: amLODIPine 10 MG TABLET PEG SCH (08:47)
[2021-10-16] MEDS: AMIODARONE 200 MG TABLET PO SCH ×2 (08:47→21:31)
[2021-10-16] MEDS: CHOLECALCIFEROL 1,000 UNIT TABLET PO SCH (08:47)
[2021-10-16] MEDS: METOPROLOL TARTRATE 25 MG TABLET PO SCH ×2 (08:47→21:31)
[2021-10-16] MEDS: buPROPion 75 MG TABLET PO SCH ×2 (08:47→21:31)
[2021-10-16] MEDS: FAMOTIDINE 8 MG/ML 50 ML/BOTTLE PEG SCH (10:36)
[2021-10-16] MEDS: HYDROcod/ACETAMIN 7.5-325 MG/15 ML UDCUP PO PRN (21:32)
[2021-10-17] MEDS: LEVOTHYROXINE 100 MCG TABLET PO SCH (05:44)
[2021-10-17] MEDS: ATORVASTATIN 40 MG TABLET PO SCH (09:08)
[2021-10-17] MEDS: amLODIPine 10 MG TABLET PEG SCH (09:08)
[2021-10-17] MEDS: ISOSORBIDE DINITRATE 10 MG TABLET PO SCH ×3 (09:08→22:05)
[2021-10-17] MEDS: buPROPion 75 MG TABLET PO SCH ×2 (09:08→22:05)
[2021-10-17] MEDS: METOPROLOL TARTRATE 25 MG TABLET PO SCH ×2 (09:08→22:05)
[2021-10-17] MEDS: CHOLECALCIFEROL 1,000 UNIT TABLET PO SCH (09:08)
[2021-10-17] MEDS: MENTHOL/ZINC OXIDE OINT 71 GM JAR TOP SCH ×2 (09:09→22:04)
[2021-10-17] MEDS: AMIODARONE 200 MG TABLET PO SCH ×2 (09:09→22:05)
[2021-10-17] MEDS: FAMOTIDINE 8 MG/ML 50 ML/BOTTLE PEG SCH (09:10)
[2021-10-17] MEDS: HYDROcod/ACETAMIN 7.5-325 MG/15 ML UDCUP PO PRN (22:04)
[2021-10-18] MEDS: LEVOTHYROXINE 100 MCG TABLET PO SCH (06:45)
[2021-10-18] MEDS: ISOSORBIDE DINITRATE 10 MG TABLET PO SCH ×3 (14:29→21:51)
[2021-10-18] MEDS: CHOLECALCIFEROL 1,000 UNIT TABLET PO SCH (14:45)
[2021-10-18] MEDS: FAMOTIDINE 8 MG/ML 50 ML/BOTTLE PEG SCH (14:46)
[2021-10-18] MEDS: MENTHOL/ZINC OXIDE OINT 71 GM JAR TOP SCH ×2 (14:46→21:51)
[2021-10-18] MEDS: amLODIPine 10 MG TABLET PEG SCH (14:46)
[2021-10-18] MEDS: METOPROLOL TARTRATE 25 MG TABLET PO SCH ×2 (14:46→21:50)
[2021-10-18] MEDS: ATORVASTATIN 40 MG TABLET PO SCH (14:47)
[2021-10-18] MEDS: AMIODARONE 200 MG TABLET PO SCH ×2 (14:47→21:51)
[2021-10-18] MEDS: buPROPion 75 MG TABLET PO SCH ×2 (14:47→21:51)
[2021-10-19] MEDS: LEVOTHYROXINE 100 MCG TABLET PO SCH (06:00)
[2021-10-19] MEDS: ISOSORBIDE DINITRATE 10 MG TABLET PO SCH ×3 (10:00→21:48)
[2021-10-19] MEDS: METOPROLOL TARTRATE 25 MG TABLET PO SCH ×2 (10:00→21:48)
[2021-10-19] MEDS: AMIODARONE 200 MG TABLET PO SCH ×2 (10:00→21:48)
[2021-10-19] MEDS: guaiFENesin/DM ER 600-30 MG TABLET PO PRN ×2 (10:00→22:32)
[2021-10-19] MEDS: amLODIPine 10 MG TABLET PEG SCH (10:00)
[2021-10-19] MEDS: buPROPion 75 MG TABLET PO SCH ×2 (10:00→21:48)
[2021-10-19] MEDS: MENTHOL/ZINC OXIDE OINT 71 GM JAR TOP SCH ×2 (10:00→21:44)
[2021-10-19] MEDS: CHOLECALCIFEROL 1,000 UNIT TABLET PO SCH (10:00)
[2021-10-19] MEDS: FAMOTIDINE 8 MG/ML 50 ML/BOTTLE PEG SCH (10:01)
[2021-10-19] MEDS: ATORVASTATIN 40 MG TABLET PO SCH (10:01)
[2021-10-19] MEDS: ONDANSETRON 4 MG/2 ML VIAL IV PRN (20:05)
[2021-10-19] MEDS: HYDROcod/ACETAMIN 7.5-325 MG/15 ML UDCUP PO PRN (21:55)
[2021-10-20] MEDS: HYDROcod/ACETAMIN 7.5-325 MG/15 ML UDCUP PO PRN ×3 (06:34→22:51)
[2021-10-20] MEDS: LEVOTHYROXINE 100 MCG TABLET PO SCH (06:34)
[2021-10-20] MEDS: ISOSORBIDE DINITRATE 10 MG TABLET PO SCH ×3 (10:28→21:59)
[2021-10-20] MEDS: AMIODARONE 200 MG TABLET PO SCH ×2 (10:28→21:59)
[2021-10-20] MEDS: amLODIPine 10 MG TABLET PEG SCH (10:29)
[2021-10-20] MEDS: METOPROLOL TARTRATE 25 MG TABLET PO SCH ×2 (10:35→21:59)
[2021-10-20] MEDS: buPROPion 75 MG TABLET PO SCH ×2 (10:35→21:59)
[2021-10-20] MEDS: MENTHOL/ZINC OXIDE OINT 71 GM JAR TOP SCH ×2 (10:36→21:59)
[2021-10-20] MEDS: ATORVASTATIN 40 MG TABLET PO SCH (10:36)
[2021-10-20] MEDS: FAMOTIDINE 8 MG/ML 50 ML/BOTTLE PEG SCH (11:53)
[2021-10-20] MEDS: CHOLECALCIFEROL 1,000 UNIT TABLET PO SCH (11:55)
[2021-10-20] MEDS: ONDANSETRON 4 MG/2 ML VIAL IV PRN (22:52)
[2021-10-21 05:51] LABS: Basophils % 0.2 % (0.0-0.8); Eosinophils # 0.1 10*3/uL (0.0-0.87); Eosinophils % 1.6 % (0.00-10.9); Hematocrit 32.8 VOL% (35.7-47.0); Hemoglobin 10.1 GM/DL (12.0-16.0); Immature Granulocytes % 1.6 %; Immature Granulocytes Absolute 0.13 #; Lymphocytes # 1.2 10*3/uL (1.4-4.0); Lymphocytes % 15.2 % (21.3-54.2); Mean Corpuscular HGB Conc 30.8 GM/DL (32-36); Mean Corpuscular Volume 98.5 FL (87-102); Mean Platelet Volume 9.2 FL (9.6-12.0); Monocytes % 10.1 % (1.7-12.7); Neutrophils % 71.3 % (38.7-73.9); Platelet Count 237 T/CUMM (130-400); Red Blood Count 3.33 MC/CUMM (3.8-5.5); Red Cell Distribution Width 19.4 % (9.3-17.3)
[2021-10-21 06:16] LABS: Calcium 10.8 MG/DL (8.5-10.1); Osmolality,Calculated 281.5 MOS/KG (273-304); Potassium 4.4 MMOL/L (3.5-5.1)
[2021-10-21 06:27] LABS: Bilirubin,Total 0.6 MG/DL (0.20-1.00); Calcium 10.6 MG/DL (8.5-10.1); Osmolality,Calculated 279.7 MOS/KG (273-304); Potassium 4.3 MMOL/L (3.5-5.1); Total Protein 6.6 G/DL (6.4-8.2)
[2021-10-21] MEDS: ISOSORBIDE DINITRATE 10 MG TABLET PO SCH ×3 (08:40→20:45)
[2021-10-21] MEDS: MENTHOL/ZINC OXIDE OINT 71 GM JAR TOP SCH ×2 (08:40→20:44)
[2021-10-21] MEDS: METOPROLOL TARTRATE 25 MG TABLET PO SCH ×2 (08:41→20:44)
[2021-10-21] MEDS: LEVOTHYROXINE 100 MCG TABLET PO SCH (08:41)
[2021-10-21] MEDS: amLODIPine 10 MG TABLET PEG SCH (08:41)
[2021-10-21] MEDS: AMIODARONE 200 MG TABLET PO SCH ×2 (08:41→20:44)
[2021-10-21] MEDS: buPROPion 75 MG TABLET PO SCH ×2 (08:41→20:45)
[2021-10-21] MEDS: CHOLECALCIFEROL 1,000 UNIT TABLET PO SCH (08:41)
[2021-10-21] MEDS: ATORVASTATIN 40 MG TABLET PO SCH (08:41)
[2021-10-21] MEDS: FAMOTIDINE 8 MG/ML 50 ML/BOTTLE PEG SCH (08:42)
[2021-10-21] MEDS: HYDROcod/ACETAMIN 7.5-325 MG/15 ML UDCUP PO PRN ×2 (08:42→20:44)
[2021-10-21] MEDS ORDERED: EPOETIN ALFA-EPBX 2,000 UNIT/ML VIAL IV ONE (11:00)
[2021-10-22] MEDS: HYDROcod/ACETAMIN 7.5-325 MG/15 ML UDCUP PO PRN (03:17)
[2021-10-22] MEDS: LEVOTHYROXINE 100 MCG TABLET PO SCH (06:08)
[2021-10-22] MEDS: ATORVASTATIN 40 MG TABLET PO SCH (09:36)
[2021-10-22] MEDS: CHOLECALCIFEROL 1,000 UNIT TABLET PO SCH (09:36)
[2021-10-22] MEDS: buPROPion 75 MG TABLET PO SCH ×2 (09:36→21:08)
[2021-10-22] MEDS: ISOSORBIDE DINITRATE 10 MG TABLET PO SCH ×3 (09:36→21:08)
[2021-10-22] MEDS: AMIODARONE 200 MG TABLET PO SCH ×2 (09:37→21:08)
[2021-10-22] MEDS: MENTHOL/ZINC OXIDE OINT 71 GM JAR TOP SCH ×2 (09:37→21:09)
[2021-10-22] MEDS: amLODIPine 10 MG TABLET PEG SCH (09:37)
[2021-10-22] MEDS: FAMOTIDINE 8 MG/ML 50 ML/BOTTLE PEG SCH (09:37)
[2021-10-22] MEDS: METOPROLOL TARTRATE 25 MG TABLET PO SCH ×2 (09:37→21:08)
[2021-10-22] MEDS: ONDANSETRON 4 MG/2 ML VIAL IV PRN (16:56)
[2021-10-23] MEDS: ACETAMINOPHEN 325 MG TABLET PO PRN (02:34)
[2021-10-23] MEDS: LEVOTHYROXINE 100 MCG TABLET PO SCH (05:51)
[2021-10-23] MEDS: ATORVASTATIN 40 MG TABLET PO SCH (13:00)
[2021-10-23] MEDS: ISOSORBIDE DINITRATE 10 MG TABLET PO SCH ×3 (13:00→22:08)
[2021-10-23] MEDS: buPROPion 75 MG TABLET PO SCH ×2 (13:00→22:08)
[2021-10-23] MEDS: AMIODARONE 200 MG TABLET PO SCH ×2 (13:00→22:08)
[2021-10-23] MEDS: METOPROLOL TARTRATE 25 MG TABLET PO SCH ×2 (13:00→22:08)
[2021-10-23] MEDS: CHOLECALCIFEROL 1,000 UNIT TABLET PO SCH (13:00)
[2021-10-23] MEDS: FAMOTIDINE 8 MG/ML 50 ML/BOTTLE PEG SCH (13:00)
[2021-10-23] MEDS: amLODIPine 10 MG TABLET PEG SCH (13:00)
[2021-10-23] MEDS: MENTHOL/ZINC OXIDE OINT 71 GM JAR TOP SCH ×2 (15:27→22:08)
[2021-10-24] MEDS: LEVOTHYROXINE 100 MCG TABLET PO SCH (05:42)
[2021-10-24 07:17] LABS: Calcium 10.2 MG/DL (8.5-10.1); Osmolality,Calculated 278.1 MOS/KG (273-304); Potassium 3.7 MMOL/L (3.5-5.1)
[2021-10-24] MEDS: CHOLECALCIFEROL 1,000 UNIT TABLET PO SCH (08:18)
[2021-10-24] MEDS: buPROPion 75 MG TABLET PO SCH ×2 (08:18→22:54)
[2021-10-24] MEDS: MENTHOL/ZINC OXIDE OINT 71 GM JAR TOP SCH ×2 (08:18→23:44)
[2021-10-24] MEDS: METOPROLOL TARTRATE 25 MG TABLET PO SCH ×2 (08:18→22:54)
[2021-10-24] MEDS: ISOSORBIDE DINITRATE 10 MG TABLET PO SCH ×3 (08:18→22:53)
[2021-10-24] MEDS: ATORVASTATIN 40 MG TABLET PO SCH (08:18)
[2021-10-24] MEDS: FAMOTIDINE 8 MG/ML 50 ML/BOTTLE PEG SCH (08:18)
[2021-10-24] MEDS: amLODIPine 10 MG TABLET PEG SCH (08:18)
[2021-10-24] MEDS: AMIODARONE 200 MG TABLET PO SCH ×2 (08:18→22:54)
[2021-10-24] MEDS: guaiFENesin/DM ER 600-30 MG TABLET PO PRN (23:50)
[2021-10-25] MEDS: LEVOTHYROXINE 100 MCG TABLET PO SCH (06:29)
[2021-10-25 10:28] LABS: Hepatitis B Core IgM Quant 0.22 Index; Hepatitis B Surface Ag Quant < 0.10 Index; Hepatitis B Surface Ag Result Non-Reactive (NonReactive); Hepatitis C Virus Ab Quant > 11.00 Index; Hepatitis C Virus Ab Result Reactive (NonReactive)
[2021-10-25] MEDS: ISOSORBIDE DINITRATE 10 MG TABLET PO SCH ×3 (14:42→21:28)
[2021-10-25] MEDS: AMIODARONE 200 MG TABLET PO SCH ×2 (14:42→21:30)
[2021-10-25] MEDS: ATORVASTATIN 40 MG TABLET PO SCH (14:43)
[2021-10-25] MEDS: buPROPion 75 MG TABLET PO SCH ×2 (14:43→21:28)
[2021-10-25] MEDS: CHOLECALCIFEROL 1,000 UNIT TABLET PO SCH (14:43)
[2021-10-25] MEDS: FAMOTIDINE 8 MG/ML 50 ML/BOTTLE PEG SCH (14:43)
[2021-10-25] MEDS: amLODIPine 10 MG TABLET PEG SCH (14:43)
[2021-10-25] MEDS: METOPROLOL TARTRATE 25 MG TABLET PO SCH ×2 (14:43→21:28)
[2021-10-25] MEDS: MENTHOL/ZINC OXIDE OINT 71 GM JAR TOP SCH ×2 (19:56→21:38)
[2021-10-26] MEDS: LEVOTHYROXINE 100 MCG TABLET PO SCH (05:57)
[2021-10-26] MEDS: MENTHOL/ZINC OXIDE OINT 71 GM JAR TOP SCH ×2 (09:00→22:21)
[2021-10-26] MEDS: ATORVASTATIN 40 MG TABLET PO SCH (10:26)
[2021-10-26] MEDS: buPROPion 75 MG TABLET PO SCH ×2 (10:26→22:20)
[2021-10-26] MEDS: amLODIPine 10 MG TABLET PEG SCH (10:27)
[2021-10-26] MEDS: AMIODARONE 200 MG TABLET PO SCH ×2 (10:27→22:20)
[2021-10-26] MEDS: CHOLECALCIFEROL 1,000 UNIT TABLET PO SCH (10:27)
[2021-10-26] MEDS: ISOSORBIDE DINITRATE 10 MG TABLET PO SCH ×3 (10:27→22:20)
[2021-10-26] MEDS: METOPROLOL TARTRATE 25 MG TABLET PO SCH ×2 (10:27→22:20)
[2021-10-26] MEDS: FAMOTIDINE 8 MG/ML 50 ML/BOTTLE PEG SCH (10:28)
[2021-10-27] MEDS: guaiFENesin/DM ER 600-30 MG TABLET PO PRN ×3 (02:48→21:58)
[2021-10-27] MEDS: LEVOTHYROXINE 100 MCG TABLET PO SCH (05:51)
[2021-10-27] MEDS: ATORVASTATIN 40 MG TABLET PO SCH (11:30)
[2021-10-27] MEDS: ISOSORBIDE DINITRATE 10 MG TABLET PO SCH ×3 (11:30→21:58)
[2021-10-27] MEDS: CHOLECALCIFEROL 1,000 UNIT TABLET PO SCH (11:30)
[2021-10-27] MEDS: buPROPion 75 MG TABLET PO SCH ×2 (11:30→21:58)
[2021-10-27] MEDS: amLODIPine 10 MG TABLET PEG SCH (11:30)
[2021-10-27] MEDS: AMIODARONE 200 MG TABLET PO SCH ×2 (11:30→21:58)
[2021-10-27] MEDS: FAMOTIDINE 8 MG/ML 50 ML/BOTTLE PEG SCH (11:31)
[2021-10-27] MEDS: METOPROLOL TARTRATE 25 MG TABLET PO SCH ×2 (11:31→21:58)
[2021-10-27] MEDS: ONDANSETRON 4 MG/2 ML VIAL IV PRN (15:57)
[2021-10-27] MEDS: ACETAMINOPHEN 325 MG TABLET PO PRN (21:58)
[2021-10-27] MEDS: MENTHOL/ZINC OXIDE OINT 71 GM JAR TOP SCH (22:00)
[2021-10-28] MEDS: MENTHOL/ZINC OXIDE OINT 71 GM JAR TOP SCH ×3 (01:32→21:59)
[2021-10-28] MEDS: HYDROcod/ACETAMIN 7.5-325 MG/15 ML UDCUP PO PRN ×3 (03:46→21:59)
[2021-10-28] MEDS: LEVOTHYROXINE 100 MCG TABLET PO SCH (05:20)
[2021-10-28 05:26] LABS: Basophils % 0.2 % (0.0-0.8); Eosinophils % 0.2 % (0.00-10.9); Hematocrit 27.5 VOL% (35.7-47.0); Hemoglobin 8.5 GM/DL (12.0-16.0); Immature Granulocytes % 1.3 %; Immature Granulocytes Absolute 0.14 #; Lymphocytes % 8.9 % (21.3-54.2); Mean Corpuscular HGB Conc 30.9 GM/DL (32-36); Mean Corpuscular Volume 99.3 FL (87-102); Mean Platelet Volume 9.2 FL (9.6-12.0); Monocytes % 12.7 % (1.7-12.7); Neutrophils % 76.7 % (38.7-73.9); Platelet Count 259 T/CUMM (130-400); Red Blood Count 2.77 MC/CUMM (3.8-5.5); Red Cell Distribution Width 18.8 % (9.3-17.3); White Blood Count 11.1 T/CUMM (4-12)
[2021-10-28 05:59] LABS: Calcium 10.9 MG/DL (8.5-10.1); Osmolality,Calculated 280.9 MOS/KG (273-304); Potassium 3.9 MMOL/L (3.5-5.1)
[2021-10-28] MEDS: AMIODARONE 200 MG TABLET PO SCH ×2 (14:17→21:59)
[2021-10-28] MEDS: ATORVASTATIN 40 MG TABLET PO SCH (14:17)
[2021-10-28] MEDS: CHOLECALCIFEROL 1,000 UNIT TABLET PO SCH (14:17)
[2021-10-28] MEDS: buPROPion 75 MG TABLET PO SCH ×2 (14:17→21:59)
[2021-10-28] MEDS: METOPROLOL TARTRATE 25 MG TABLET PO SCH ×2 (14:17→21:59)
[2021-10-28] MEDS: amLODIPine 10 MG TABLET PEG SCH (14:18)
[2021-10-28] MEDS: ISOSORBIDE DINITRATE 10 MG TABLET PO SCH ×2 (14:18→21:59)
[2021-10-28] MEDS: guaiFENesin/DM ER 600-30 MG TABLET PO PRN (14:28)
[2021-10-28] MEDS: FAMOTIDINE 8 MG/ML 50 ML/BOTTLE PEG SCH (21:59)
[2021-10-29 03:39] LABS: ABG Base Excess 2.7 MMOL/L (-2.5-2.5); ABG HCO3 26.8 MMOL/L (20-26); ABG Oxygen Saturation 97.1 % (95-100); ABG PCO2 47.2 MM HG (35-48); ABG PH 7.385 (7.35-7.45); ABG PO2 87.3 MM HG (80-95)
[2021-10-29] MEDS: LEVOTHYROXINE 100 MCG TABLET PO SCH (05:54)
[2021-10-29] MEDS: MENTHOL/ZINC OXIDE OINT 71 GM JAR TOP SCH ×2 (09:09→21:59)
[2021-10-29] MEDS: METOPROLOL TARTRATE 25 MG TABLET PO SCH ×2 (09:09→21:54)
[2021-10-29] MEDS: ATORVASTATIN 40 MG TABLET PO SCH (09:09)
[2021-10-29] MEDS: amLODIPine 10 MG TABLET PEG SCH (09:10)
[2021-10-29] MEDS: AMIODARONE 200 MG TABLET PO SCH (09:10)
[2021-10-29] MEDS: buPROPion 75 MG TABLET PO SCH ×2 (09:10→21:54)
[2021-10-29] MEDS: CHOLECALCIFEROL 1,000 UNIT TABLET PO SCH (09:10)
[2021-10-29] MEDS: ISOSORBIDE DINITRATE 10 MG TABLET PO SCH ×3 (09:10→21:54)
[2021-10-29] MEDS: ONDANSETRON 4 MG/2 ML VIAL IV PRN (09:11)
[2021-10-29] MEDS: FAMOTIDINE 8 MG/ML 50 ML/BOTTLE PEG SCH (09:15)
[2021-10-29] MEDS: HYDROcod/ACETAMIN 7.5-325 MG/15 ML UDCUP PO PRN (15:23)
[2021-10-29] MEDS: guaiFENesin/DM ER 600-30 MG TABLET PO PRN (15:24)
[2021-10-30] MEDS: HYDROcod/ACETAMIN 7.5-325 MG/15 ML UDCUP PO PRN ×2 (02:24→13:23)
[2021-10-30] MEDS: guaiFENesin 200 MG/10 ML UDCUP PO PRN ×2 (02:24→13:22)
[2021-10-30] MEDS: ONDANSETRON 4 MG/2 ML VIAL IV PRN (03:45)
[2021-10-30] MEDS: LEVOTHYROXINE 100 MCG TABLET PO SCH (06:03)
[2021-10-30] MEDS: guaiFENesin/DM ER 600-30 MG TABLET PO PRN (06:22)
[2021-10-30] MEDS: CHOLECALCIFEROL 1,000 UNIT TABLET PO SCH (13:23)
[2021-10-30] MEDS: prednisoLONE 15 MG/5 ML ORAL.SYR PO SCH (13:23)
[2021-10-30] MEDS: FAMOTIDINE 8 MG/ML 50 ML/BOTTLE PEG SCH (13:24)
[2021-10-30] MEDS: METOPROLOL TARTRATE 25 MG TABLET PO SCH ×2 (13:24→22:34)
[2021-10-30] MEDS: ISOSORBIDE DINITRATE 10 MG TABLET PO SCH ×3 (13:24→22:34)
[2021-10-30] MEDS: AMIODARONE 200 MG TABLET PO SCH (13:24)
[2021-10-30] MEDS: ATORVASTATIN 40 MG TABLET PO SCH (13:24)
[2021-10-30] MEDS: buPROPion 75 MG TABLET PO SCH ×2 (13:24→22:34)
[2021-10-30] MEDS: MENTHOL/ZINC OXIDE OINT 71 GM JAR TOP SCH ×2 (13:24→22:34)
[2021-10-30] MEDS: amLODIPine 10 MG TABLET PEG SCH (13:25)
[2021-10-31] MEDS: LEVOTHYROXINE 100 MCG TABLET PO SCH (06:19)
[2021-10-31] MEDS: ATORVASTATIN 40 MG TABLET PO SCH (08:49)
[2021-10-31] MEDS: ISOSORBIDE DINITRATE 10 MG TABLET PO SCH ×3 (08:49→21:36)
[2021-10-31] MEDS: amLODIPine 10 MG TABLET PEG SCH (08:49)
[2021-10-31] MEDS: MENTHOL/ZINC OXIDE OINT 71 GM JAR TOP SCH ×2 (08:49→21:37)
[2021-10-31] MEDS: METOPROLOL TARTRATE 25 MG TABLET PO SCH ×2 (08:49→21:36)
[2021-10-31] MEDS: prednisoLONE 15 MG/5 ML ORAL.SYR PO SCH (08:49)
[2021-10-31] MEDS: AMIODARONE 200 MG TABLET PO SCH (08:49)
[2021-10-31] MEDS: buPROPion 75 MG TABLET PO SCH ×2 (08:49→21:36)
[2021-10-31] MEDS: FAMOTIDINE 8 MG/ML 50 ML/BOTTLE PEG SCH (08:50)
[2021-10-31] MEDS: guaiFENesin 200 MG/10 ML UDCUP PO PRN (09:02)
[2021-10-31] MEDS: HYDROcod/ACETAMIN 7.5-325 MG/15 ML UDCUP PO PRN ×2 (09:02→21:37)
[2021-10-31] MEDS: CHOLECALCIFEROL 1,000 UNIT TABLET PO SCH (16:14)
[2021-10-31] MEDS: guaiFENesin/DM ER 600-30 MG TABLET PO PRN (21:36)
[2021-11-01] MEDS: LEVOTHYROXINE 100 MCG TABLET PO SCH (05:51)
[2021-11-01] MEDS: METOPROLOL TARTRATE 25 MG TABLET PO SCH ×2 (09:14→22:28)
[2021-11-01] MEDS: buPROPion 75 MG TABLET PO SCH ×2 (09:14→22:28)
[2021-11-01] MEDS: amLODIPine 10 MG TABLET PEG SCH (09:14)
[2021-11-01] MEDS: ISOSORBIDE DINITRATE 10 MG TABLET PO SCH ×3 (09:14→22:28)
[2021-11-01] MEDS: FAMOTIDINE 8 MG/ML 50 ML/BOTTLE PEG SCH (09:15)
[2021-11-01] MEDS: MENTHOL/ZINC OXIDE OINT 71 GM JAR TOP SCH ×2 (09:15→22:29)
[2021-11-01] MEDS: prednisoLONE 15 MG/5 ML ORAL.SYR PO SCH (09:15)
[2021-11-01] MEDS: AMIODARONE 200 MG TABLET PO SCH (09:15)
[2021-11-01] MEDS: ATORVASTATIN 40 MG TABLET PO SCH (09:15)
[2021-11-01] MEDS: CHOLECALCIFEROL 1,000 UNIT TABLET PO SCH (09:15)
[2021-11-01] MEDS ORDERED: EPOETIN ALFA-EPBX 3,000 UNIT/ML VIAL IV PRN (09:28)
[2021-11-01] MEDS: HYDROcod/ACETAMIN 7.5-325 MG/15 ML UDCUP PO PRN (22:28)
[2021-11-01] MEDS: guaiFENesin/DM ER 600-30 MG TABLET PO PRN (22:28)
[2021-11-02 05:57] LABS: Basophils % 0.2 % (0.0-0.8); Eosinophils % 0.4 % (0.00-10.9); Hematocrit 29.6 VOL% (35.7-47.0); Hemoglobin 9.1 GM/DL (12.0-16.0); Immature Granulocytes Absolute 0.38 #; Lymphocytes # 1.2 10*3/uL (1.4-4.0); Mean Corpuscular HGB Conc 30.7 GM/DL (32-36); Mean Corpuscular Volume 102.1 FL (87-102); Mean Platelet Volume 9.1 FL (9.6-12.0); Monocytes % 12.1 % (1.7-12.7); NRBC # 0.03 10*3/uL; Neutrophils % 71.3 % (38.7-73.9); Platelet Count 327 T/CUMM (130-400); Red Cell Distribution Width 18.6 % (9.3-17.3); White Blood Count 9.6 T/CUMM (4-12)
[2021-11-02] MEDS: LEVOTHYROXINE 100 MCG TABLET PO SCH (06:05)
[2021-11-02 06:59] LABS: Calcium 9.4 MG/DL (8.5-10.1); Osmolality,Calculated 268.8 MOS/KG (273-304); Potassium 3.8 MMOL/L (3.5-5.1)
[2021-11-02] MEDS: prednisoLONE 15 MG/5 ML ORAL.SYR PO SCH (10:42)
[2021-11-02] MEDS: buPROPion 75 MG TABLET PO SCH ×2 (10:42→21:19)
[2021-11-02] MEDS: ISOSORBIDE DINITRATE 10 MG TABLET PO SCH ×3 (10:42→21:20)
[2021-11-02] MEDS: AMIODARONE 200 MG TABLET PO SCH (10:43)
[2021-11-02] MEDS: FAMOTIDINE 8 MG/ML 50 ML/BOTTLE PEG SCH (10:43)
[2021-11-02] MEDS: METOPROLOL TARTRATE 25 MG TABLET PO SCH ×2 (10:43→21:20)
[2021-11-02] MEDS: amLODIPine 10 MG TABLET PEG SCH (10:43)
[2021-11-02] MEDS: MENTHOL/ZINC OXIDE OINT 71 GM JAR TOP SCH ×2 (10:43→21:00)
[2021-11-02] MEDS: ATORVASTATIN 40 MG TABLET PO SCH (10:43)
[2021-11-02] MEDS: CHOLECALCIFEROL 1,000 UNIT TABLET PO SCH (10:44)
[2021-11-02] MEDS: guaiFENesin/DM ER 600-30 MG TABLET PO PRN (21:19)
[2021-11-02] MEDS: HYDROcod/ACETAMIN 7.5-325 MG/15 ML UDCUP PO PRN (21:20)
[2021-11-03] MEDS: LEVOTHYROXINE 100 MCG TABLET PO SCH (06:17)
[2021-11-03] MEDS: AMIODARONE 200 MG TABLET PO SCH (09:57)
[2021-11-03] MEDS: METOPROLOL TARTRATE 25 MG TABLET PO SCH ×2 (09:57→20:49)
[2021-11-03] MEDS: ATORVASTATIN 40 MG TABLET PO SCH (09:57)
[2021-11-03] MEDS: amLODIPine 10 MG TABLET PEG SCH (09:57)
[2021-11-03] MEDS: buPROPion 75 MG TABLET PO SCH ×2 (09:57→20:49)
[2021-11-03] MEDS: ISOSORBIDE DINITRATE 10 MG TABLET PO SCH ×3 (09:57→20:49)
[2021-11-03] MEDS: MENTHOL/ZINC OXIDE OINT 71 GM JAR TOP SCH ×2 (09:58→20:51)
[2021-11-03] MEDS: CHOLECALCIFEROL 1,000 UNIT TABLET PO SCH (09:58)
[2021-11-03] MEDS: FAMOTIDINE 8 MG/ML 50 ML/BOTTLE PEG SCH (09:58)
[2021-11-03] MEDS: prednisoLONE 15 MG/5 ML ORAL.SYR PO SCH (09:58)
[2021-11-03] MEDS: guaiFENesin/DM ER 600-30 MG TABLET PO PRN (20:49)
[2021-11-03] MEDS: HYDROcod/ACETAMIN 7.5-325 MG/15 ML UDCUP PO PRN (20:50)
[2021-11-04 06:13] LABS: Calcium 9.2 MG/DL (8.5-10.1); Osmolality,Calculated 281.9 MOS/KG (273-304); Potassium 4.2 MMOL/L (3.5-5.1)
[2021-11-04] MEDS: LEVOTHYROXINE 100 MCG TABLET PO SCH (06:13)
[2021-11-04] MEDS ORDERED: prednisoLONE 15 MG/5 ML ORAL.SYR PO SCH (09:00)
[2021-11-04] MEDS: HYDROcod/ACETAMIN 7.5-325 MG/15 ML UDCUP PO PRN (10:18)
[2021-11-04] MEDS: prednisoLONE 15 MG/5 ML ORAL.SYR PO SCH (10:27)
[2021-11-04] MEDS: FAMOTIDINE 8 MG/ML 50 ML/BOTTLE PEG SCH (10:32)
[2021-11-04] MEDS: ISOSORBIDE DINITRATE 10 MG TABLET PO SCH ×3 (10:35→21:59)
[2021-11-04] MEDS: amLODIPine 10 MG TABLET PEG SCH (10:39)
[2021-11-04] MEDS: buPROPion 75 MG TABLET PO SCH ×2 (10:42→21:59)
[2021-11-04] MEDS: CHOLECALCIFEROL 1,000 UNIT TABLET PO SCH (10:45)
[2021-11-04] MEDS: METOPROLOL TARTRATE 25 MG TABLET PO SCH ×2 (10:47→21:59)
[2021-11-04] MEDS: AMIODARONE 200 MG TABLET PO SCH (10:50)
[2021-11-04] MEDS: ATORVASTATIN 40 MG TABLET PO SCH (10:53)
[2021-11-04 14:46] LABS: % Iron Saturation 42.9 % (18-50)
[2021-11-04 17:37] LABS: Folate 17.88 NG/ML (5.38-24.0)
[2021-11-04] MEDS: guaiFENesin/DM ER 600-30 MG TABLET PO PRN (21:59)
[2021-11-04] MEDS: ACETAMINOPHEN 325 MG TABLET PO PRN (21:59)
[2021-11-04] MEDS: MENTHOL/ZINC OXIDE OINT 71 GM JAR TOP SCH ×2 (22:00→23:35)
[2021-11-05] MEDS: LEVOTHYROXINE 100 MCG TABLET PO SCH ×2 (04:16→05:36)
[2021-11-05] MEDS: ACETAMINOPHEN 325 MG TABLET PO PRN ×2 (04:16→20:15)
[2021-11-05 06:04] LABS: Basophils % 0.2 % (0.0-0.8); Eosinophils # 0.1 10*3/uL (0.0-0.87); Eosinophils % 0.4 % (0.00-10.9); Hematocrit 30.9 VOL% (35.7-47.0); Hemoglobin 9.2 GM/DL (12.0-16.0); Immature Granulocytes Absolute 0.26 #; Lymphocytes # 1.2 10*3/uL (1.4-4.0); Mean Corpuscular HGB Conc 29.8 GM/DL (32-36); Mean Corpuscular Volume 107.3 FL (87-102); Mean Platelet Volume 9.8 FL (9.6-12.0); Monocytes % 8.7 % (1.7-12.7); Neutrophils % 79.7 % (38.7-73.9); Platelet Count 215 T/CUMM (130-400); Red Blood Count 2.88 MC/CUMM (3.8-5.5); White Blood Count 13.1 T/CUMM (4-12)
[2021-11-05 06:14] LABS: Calcium 8.8 MG/DL (8.5-10.1); Osmolality,Calculated 266.1 MOS/KG (273-304); Potassium 4.4 MMOL/L (3.5-5.1)
[2021-11-05] MEDS: MENTHOL/ZINC OXIDE OINT 71 GM JAR TOP SCH ×2 (10:20→20:15)
[2021-11-05] MEDS: ATORVASTATIN 40 MG TABLET PO SCH (10:20)
[2021-11-05] MEDS: ISOSORBIDE DINITRATE 10 MG TABLET PO SCH ×3 (10:20→20:14)
[2021-11-05] MEDS: buPROPion 75 MG TABLET PO SCH ×2 (10:21→20:14)
[2021-11-05] MEDS: METOPROLOL TARTRATE 25 MG TABLET PO SCH ×2 (10:22→20:15)
[2021-11-05] MEDS: AMIODARONE 200 MG TABLET PO SCH (10:22)
[2021-11-05] MEDS: CHOLECALCIFEROL 1,000 UNIT TABLET PO SCH (10:22)
[2021-11-05] MEDS: amLODIPine 10 MG TABLET PEG SCH (10:23)
[2021-11-05] MEDS: prednisoLONE 15 MG/5 ML ORAL.SYR PO SCH (10:23)
[2021-11-05] MEDS: FAMOTIDINE 8 MG/ML 50 ML/BOTTLE PEG SCH (10:25)
[2021-11-05] MEDS: GABAPENTIN 50 MG/ML 30 ML/BOTTLE PO SCH (11:25)
[2021-11-06] MEDS: HYDROcod/ACETAMIN 7.5-325 MG/15 ML UDCUP PO PRN ×3 (00:15→21:15)
[2021-11-06] MEDS: LEVOTHYROXINE 100 MCG TABLET PO SCH (05:25)
[2021-11-06 05:47] LABS: Basophils % 0.2 % (0.0-0.8); Eosinophils # 0.1 10*3/uL (0.0-0.87); Eosinophils % 0.8 % (0.00-10.9); Hemoglobin 8.8 GM/DL (12.0-16.0); Immature Granulocytes % 1.1 %; Immature Granulocytes Absolute 0.11 #; Lymphocytes # 0.9 10*3/uL (1.4-4.0); Mean Corpuscular HGB Conc 31.4 GM/DL (32-36); Mean Corpuscular Volume 100.7 FL (87-102); Mean Platelet Volume 9.6 FL (9.6-12.0); Monocytes % 10.4 % (1.7-12.7); Neutrophils % 78.5 % (38.7-73.9); Platelet Count 248 T/CUMM (130-400); Red Blood Count 2.78 MC/CUMM (3.8-5.5); Red Cell Distribution Width 18.7 % (9.3-17.3); White Blood Count 10.1 T/CUMM (4-12)
[2021-11-06 06:16] LABS: Calcium 8.6 MG/DL (8.5-10.1); Osmolality,Calculated 279.5 MOS/KG (273-304)
[2021-11-06] MEDS: ATORVASTATIN 40 MG TABLET PO SCH (14:59)
[2021-11-06] MEDS: amLODIPine 10 MG TABLET PEG SCH (14:59)
[2021-11-06] MEDS: FAMOTIDINE 8 MG/ML 50 ML/BOTTLE PEG SCH (14:59)
[2021-11-06] MEDS: CHOLECALCIFEROL 1,000 UNIT TABLET PO SCH (15:00)
[2021-11-06] MEDS: buPROPion 75 MG TABLET PO SCH ×2 (15:00→21:15)
[2021-11-06] MEDS: ISOSORBIDE DINITRATE 10 MG TABLET PO SCH ×3 (15:00→21:15)
[2021-11-06] MEDS: METOPROLOL TARTRATE 25 MG TABLET PO SCH ×2 (15:00→21:15)
[2021-11-06] MEDS: AMIODARONE 200 MG TABLET PO SCH (15:00)
[2021-11-06] MEDS: GABAPENTIN 50 MG/ML 30 ML/BOTTLE PO SCH (15:01)
[2021-11-06] MEDS: MENTHOL/ZINC OXIDE OINT 71 GM JAR TOP SCH ×2 (15:01→21:15)
[2021-11-07] MEDS ORDERED: VECURONIUM 10 MG VIAL IV ONE (05:51)
[2021-11-07] MEDS ORDERED: ETOMIDATE 20 MG/10 ML VIAL IV ONE (05:51)
[2021-11-07 06:26] LABS: ABG Base Excess 0.8 MMOL/L (-2.5-2.5); ABG HCO3 25.1 MMOL/L (20-26); ABG PCO2 40.6 MM HG (35-48); ABG PH 7.405 (7.35-7.45); ABG TCO2 23.3 MMOL/L (23-27)
[2021-11-07] MEDS ORDERED: CLINDAMYCIN INJ 600 MG/50 ML PREMIX IV SCH (06:30)
[2021-11-07] MEDS: LEVOTHYROXINE 100 MCG TABLET PO SCH (06:31)
[2021-11-07 06:51] LABS: Basophils % 0.3 % (0.0-0.8); Eosinophils # 0.1 10*3/uL (0.0-0.87); Eosinophils % 1.4 % (0.00-10.9); Hematocrit 31.7 VOL% (35.7-47.0); Hemoglobin 9.8 GM/DL (12.0-16.0); Immature Granulocytes Absolute 0.24 #; Lymphocytes # 0.7 10*3/uL (1.4-4.0); Lymphocytes % 9.1 % (21.3-54.2); Mean Corpuscular HGB Conc 30.9 GM/DL (32-36); Mean Corpuscular Volume 102.3 FL (87-102); Mean Platelet Volume 9.2 FL (9.6-12.0); NRBC # 0.02 10*3/uL; Neutrophils % 77.2 % (38.7-73.9); Platelet Count 240 T/CUMM (130-400); Red Cell Distribution Width 18.8 % (9.3-17.3)
[2021-11-07 07:10] LABS: Albumin 2.1 G/DL (3.4-5.0); Bilirubin,Total 1.7 MG/DL (0.20-1.00); Osmolality,Calculated 281.8 MOS/KG (273-304); Potassium 3.8 MMOL/L (3.5-5.1); Total Protein 6.1 G/DL (6.4-8.2)
[2021-11-07] MEDS: CHOLECALCIFEROL 1,000 UNIT TABLET PO SCH (09:05)
[2021-11-07] MEDS: METOPROLOL TARTRATE 25 MG TABLET PO SCH ×2 (09:05→20:13)
[2021-11-07] MEDS: ATORVASTATIN 40 MG TABLET PO SCH (09:05)
[2021-11-07] MEDS: ISOSORBIDE DINITRATE 10 MG TABLET PO SCH ×3 (09:05→20:13)
[2021-11-07] MEDS: buPROPion 75 MG TABLET PO SCH ×2 (09:05→20:13)
[2021-11-07] MEDS: AMIODARONE 200 MG TABLET PO SCH (09:06)
[2021-11-07] MEDS: amLODIPine 10 MG TABLET PEG SCH (09:06)
[2021-11-07] MEDS: MENTHOL/ZINC OXIDE OINT 71 GM JAR TOP SCH ×2 (10:42→20:44)
[2021-11-07] MEDS: GABAPENTIN 50 MG/ML 30 ML/BOTTLE PO SCH (10:47)
[2021-11-07] MEDS: FAMOTIDINE 8 MG/ML 50 ML/BOTTLE PEG SCH (10:48)
[2021-11-07] MEDS: INSULIN REGULAR 100 UNIT/ML SUBCUT SCH ×2 (12:21→19:02)
[2021-11-07] MEDS ORDERED: PIPERACILLIN/TAZOBACTAM 3,375 MG VIAL IV ONE (12:27)
[2021-11-07] MEDS: PIPERACILLIN/TAZOBACTAM 3,375 MG in SODIUM CHLORIDE 0.9% 100 ML IV SCH ×2 (12:31→20:14)
[2021-11-08] MEDS: INSULIN REGULAR 100 UNIT/ML SUBCUT SCH ×4 (00:17→18:19)
[2021-11-08 04:20] LABS: ABG Base Excess 1.2 MMOL/L (-2.5-2.5); ABG HCO3 25.5 MMOL/L (20-26); ABG Oxygen Saturation 97.1 % (95-100); ABG PCO2 37.6 MM HG (35-48); ABG PH 7.436 (7.35-7.45); ABG PO2 86.7 MM HG (80-95); ABG TCO2 23.6 MMOL/L (23-27)
[2021-11-08] MEDS: PIPERACILLIN/TAZOBACTAM 3,375 MG in SODIUM CHLORIDE 0.9% 100 ML IV SCH ×3 (04:31→20:04)
[2021-11-08] MEDS: LEVOTHYROXINE 100 MCG TABLET PO SCH (05:16)
[2021-11-08 06:13] LABS: Basophils % 0.4 % (0.0-0.8); Eosinophils # 0.1 10*3/uL (0.0-0.87); Eosinophils % 1.2 % (0.00-10.9); Hematocrit 26.3 VOL% (35.7-47.0); Hemoglobin 8.1 GM/DL (12.0-16.0); Immature Granulocytes % 1.2 %; Immature Granulocytes Absolute 0.09 #; Lymphocytes # 0.8 10*3/uL (1.4-4.0); Lymphocytes % 10.5 % (21.3-54.2); Mean Corpuscular HGB Conc 30.8 GM/DL (32-36); Mean Platelet Volume 9.8 FL (9.6-12.0); Monocytes % 10.6 % (1.7-12.7); Neutrophils % 76.1 % (38.7-73.9); Platelet Count 241 T/CUMM (130-400); Red Blood Count 2.53 MC/CUMM (3.8-5.5); Red Cell Distribution Width 18.8 % (9.3-17.3); White Blood Count 7.5 T/CUMM (4-12)
[2021-11-08 06:40] LABS: Calcium 8.8 MG/DL (8.5-10.1); Osmolality,Calculated 278.4 MOS/KG (273-304)
[2021-11-08] MEDS: buPROPion 75 MG TABLET PO SCH ×2 (09:25→20:04)
[2021-11-08] MEDS: ISOSORBIDE DINITRATE 10 MG TABLET PO SCH ×3 (09:25→20:04)
[2021-11-08] MEDS: MENTHOL/ZINC OXIDE OINT 71 GM JAR TOP SCH ×2 (09:25→20:05)
[2021-11-08] MEDS: ATORVASTATIN 40 MG TABLET PO SCH (09:25)
[2021-11-08] MEDS: METOPROLOL TARTRATE 25 MG TABLET PO SCH ×2 (09:25→20:04)
[2021-11-08] MEDS: AMIODARONE 200 MG TABLET PO SCH (09:25)
[2021-11-08] MEDS: CHOLECALCIFEROL 1,000 UNIT TABLET PO SCH (09:25)
[2021-11-08] MEDS: amLODIPine 10 MG TABLET PEG SCH (09:25)
[2021-11-08] MEDS: GABAPENTIN 50 MG/ML 30 ML/BOTTLE PO SCH (11:07)
[2021-11-08] MEDS: FAMOTIDINE 8 MG/ML 50 ML/BOTTLE PEG SCH (11:07)
[2021-11-08] MEDS ORDERED: PIPERACILLIN/TAZOBACTAM 3,375 MG VIAL IV ONE (12:14)
[2021-11-08] MEDS: HYDROcod/ACETAMIN 7.5-325 MG/15 ML UDCUP PO PRN (20:39)
[2021-11-09] MEDS: INSULIN REGULAR 100 UNIT/ML SUBCUT SCH ×5 (00:10→23:53)
[2021-11-09] MEDS: PIPERACILLIN/TAZOBACTAM 3,375 MG in SODIUM CHLORIDE 0.9% 100 ML IV SCH ×3 (04:02→20:40)
[2021-11-09] MEDS: LEVOTHYROXINE 100 MCG TABLET PO SCH (06:32)
[2021-11-09 06:52] LABS: Basophils % 0.4 % (0.0-0.8); Eosinophils # 0.1 10*3/uL (0.0-0.87); Eosinophils % 2.2 % (0.00-10.9); Hematocrit 26.2 VOL% (35.7-47.0); Hemoglobin 7.9 GM/DL (12.0-16.0); Lymphocytes # 0.9 10*3/uL (1.4-4.0); Lymphocytes % 16.4 % (21.3-54.2); Mean Corpuscular HGB Conc 30.2 GM/DL (32-36); Mean Corpuscular Volume 103.6 FL (87-102); Mean Platelet Volume 9.6 FL (9.6-12.0); Monocytes % 14.2 % (1.7-12.7); Neutrophils % 64.8 % (38.7-73.9); Platelet Count 223 T/CUMM (130-400); Red Blood Count 2.53 MC/CUMM (3.8-5.5); Red Cell Distribution Width 18.8 % (9.3-17.3); White Blood Count 5.4 T/CUMM (4-12)
[2021-11-09 07:10] LABS: Albumin 1.5 G/DL (3.4-5.0); Bilirubin,Total 0.6 MG/DL (0.20-1.00); Osmolality,Calculated 277.8 MOS/KG (273-304); Potassium 3.7 MMOL/L (3.5-5.1); Total Protein 5.2 G/DL (6.4-8.2)
[2021-11-09 07:33] LABS: ABG Base Excess 2.5 MMOL/L (-2.5-2.5); ABG HCO3 26.7 MMOL/L (20-26); ABG Oxygen Saturation 97.5 % (95-100); ABG PCO2 39.1 MM HG (35-48); ABG PH 7.443 (7.35-7.45); ABG PO2 90.3 MM HG (80-95); ABG TCO2 24.9 MMOL/L (23-27); Pt O2 Delivery Device Ventilator
[2021-11-09 09:44] LABS: ABG Base Excess 2.2 MMOL/L (-2.5-2.5); ABG HCO3 26.4 MMOL/L (20-26); ABG Oxygen Saturation 97.6 % (95-100); ABG PCO2 41.9 MM HG (35-48); ABG PH 7.416 (7.35-7.45); ABG PO2 97.7 MM HG (80-95); ABG TCO2 24.9 MMOL/L (23-27); Pt O2 Delivery Device Ventilator
[2021-11-09] MEDS: amLODIPine 10 MG TABLET PEG SCH (09:47)
[2021-11-09] MEDS: ISOSORBIDE DINITRATE 10 MG TABLET PO SCH ×3 (09:47→20:39)
[2021-11-09] MEDS: AMIODARONE 200 MG TABLET PO SCH (09:47)
[2021-11-09] MEDS: CHOLECALCIFEROL 1,000 UNIT TABLET PO SCH (09:48)
[2021-11-09] MEDS: ATORVASTATIN 40 MG TABLET PO SCH (09:48)
[2021-11-09] MEDS: FAMOTIDINE 8 MG/ML 50 ML/BOTTLE PEG SCH (09:48)
[2021-11-09] MEDS: METOPROLOL TARTRATE 25 MG TABLET PO SCH ×2 (09:48→20:39)
[2021-11-09] MEDS: GABAPENTIN 50 MG/ML 30 ML/BOTTLE PO SCH (09:48)
[2021-11-09] MEDS: buPROPion 75 MG TABLET PO SCH ×2 (09:48→20:39)
[2021-11-09] MEDS: HEPARIN 5,000 UNIT/1 ML VIAL SUBCUT SCH ×2 (09:48→18:22)
[2021-11-09] MEDS: MENTHOL/ZINC OXIDE OINT 71 GM JAR TOP SCH ×2 (10:09→20:40)
[2021-11-09] MEDS: ALBUTEROL/IPRATROPIUM 3 ML NEB RESP TX SCH ×2 (13:01→19:45)
[2021-11-09] MEDS: HYDROcod/ACETAMIN 7.5-325 MG/15 ML UDCUP PO PRN (16:22)
[2021-11-09] MEDS: DEXTROSE 10% 250 ML BAG IV PRN (23:50)
[2021-11-10] MEDS ORDERED: PIPERACILLIN/TAZOBACTAM 3,375 MG VIAL IV ONE ×2 (01:04→12:56)
[2021-11-10] MEDS: ALBUTEROL/IPRATROPIUM 3 ML NEB RESP TX SCH ×4 (01:13→20:19)
[2021-11-10] MEDS: ONDANSETRON 4 MG/2 ML VIAL IV PRN (02:40)
[2021-11-10] MEDS: HEPARIN 5,000 UNIT/1 ML VIAL SUBCUT SCH ×3 (03:00→18:31)
[2021-11-10] MEDS: PIPERACILLIN/TAZOBACTAM 3,375 MG in SODIUM CHLORIDE 0.9% 100 ML IV SCH ×3 (03:00→19:27)
[2021-11-10] MEDS: hydrALAZINE 20 MG/1 ML VIAL IV PRN (03:14)
[2021-11-10] MEDS: LEVOTHYROXINE 100 MCG TABLET PO SCH (05:10)
[2021-11-10] MEDS: DEXTROSE 10% 250 ML BAG IV PRN (05:10)
[2021-11-10] MEDS: INSULIN REGULAR 100 UNIT/ML SUBCUT SCH ×4 (05:43→23:51)
[2021-11-10] MEDS: HYDROcod/ACETAMIN 7.5-325 MG/15 ML UDCUP PO PRN (06:02)
[2021-11-10] MEDS: ATORVASTATIN 40 MG TABLET PO SCH (09:10)
[2021-11-10] MEDS: FAMOTIDINE 8 MG/ML 50 ML/BOTTLE PEG SCH (09:10)
[2021-11-10] MEDS: buPROPion 75 MG TABLET PO SCH ×2 (09:10→21:35)
[2021-11-10] MEDS: amLODIPine 10 MG TABLET PEG SCH (09:11)
[2021-11-10] MEDS: ISOSORBIDE DINITRATE 10 MG TABLET PO SCH ×3 (09:11→21:34)
[2021-11-10] MEDS: AMIODARONE 200 MG TABLET PO SCH (09:11)
[2021-11-10] MEDS: CHOLECALCIFEROL 1,000 UNIT TABLET PO SCH (09:11)
[2021-11-10] MEDS: MENTHOL/ZINC OXIDE OINT 71 GM JAR TOP SCH ×2 (09:16→21:37)
[2021-11-10] MEDS: METOPROLOL TARTRATE 25 MG TABLET PO SCH ×2 (09:16→21:35)
[2021-11-10] MEDS: GABAPENTIN 50 MG/ML 30 ML/BOTTLE PO SCH (09:17)
[2021-11-10] MEDS: DORNASE ALFA 2.5 MG/2.5 ML VIAL RESP TX SCH (20:26)
[2021-11-11] MEDS: ALBUTEROL/IPRATROPIUM 3 ML NEB RESP TX SCH ×4 (00:42→19:35)
[2021-11-11] MEDS: HEPARIN 5,000 UNIT/1 ML VIAL SUBCUT SCH ×3 (01:08→18:27)
[2021-11-11] MEDS: PIPERACILLIN/TAZOBACTAM 3,375 MG in SODIUM CHLORIDE 0.9% 100 ML IV SCH ×3 (03:46→21:52)
[2021-11-11 04:49] LABS: Basophils % 0.3 % (0.0-0.8); Eosinophils # 0.1 10*3/uL (0.0-0.87); Eosinophils % 1.4 % (0.00-10.9); Hematocrit 26.8 VOL% (35.7-47.0); Hemoglobin 8.1 GM/DL (12.0-16.0); Immature Granulocytes Absolute 0.07 #; Lymphocytes % 14.5 % (21.3-54.2); Mean Corpuscular HGB Conc 30.2 GM/DL (32-36); Mean Corpuscular Volume 103.1 FL (87-102); Mean Platelet Volume 8.6 FL (9.6-12.0); Monocytes % 10.1 % (1.7-12.7); Neutrophils % 72.7 % (38.7-73.9); Platelet Count 222 T/CUMM (130-400); Red Cell Distribution Width 17.9 % (9.3-17.3); White Blood Count 6.9 T/CUMM (4-12)
[2021-11-11 05:15] LABS: Calcium 8.5 MG/DL (8.5-10.1); Potassium 3.3 MMOL/L (3.5-5.1)
[2021-11-11] MEDS: INSULIN REGULAR 100 UNIT/ML SUBCUT SCH ×3 (05:56→17:07)
[2021-11-11] MEDS: LEVOTHYROXINE 100 MCG TABLET PO SCH (05:56)
[2021-11-11] MEDS: DORNASE ALFA 2.5 MG/2.5 ML VIAL RESP TX SCH ×2 (06:57→19:35)
[2021-11-11] MEDS: ISOSORBIDE DINITRATE 10 MG TABLET PO SCH ×3 (08:51→21:52)
[2021-11-11] MEDS: amLODIPine 10 MG TABLET PEG SCH (08:51)
[2021-11-11] MEDS: METOPROLOL TARTRATE 25 MG TABLET PO SCH ×2 (08:52→21:52)
[2021-11-11] MEDS: CHOLECALCIFEROL 1,000 UNIT TABLET PO SCH (08:52)
[2021-11-11] MEDS: AMIODARONE 200 MG TABLET PO SCH (08:52)
[2021-11-11] MEDS: ATORVASTATIN 40 MG TABLET PO SCH (08:52)
[2021-11-11] MEDS: MENTHOL/ZINC OXIDE OINT 71 GM JAR TOP SCH ×2 (08:52→21:52)
[2021-11-11] MEDS: buPROPion 75 MG TABLET PO SCH ×2 (08:52→21:52)
[2021-11-11] MEDS: GABAPENTIN 50 MG/ML 30 ML/BOTTLE PO SCH (09:27)
[2021-11-11] MEDS: FAMOTIDINE 8 MG/ML 50 ML/BOTTLE PEG SCH (09:27)
[2021-11-11] MEDS ORDERED: PIPERACILLIN/TAZOBACTAM 3,375 MG VIAL IV ONE (11:27)
[2021-11-11] MEDS: HYDROcod/ACETAMIN 7.5-325 MG/15 ML UDCUP PO PRN (21:55)
[2021-11-12] MEDS: INSULIN REGULAR 100 UNIT/ML SUBCUT SCH ×4 (00:22→18:28)
[2021-11-12] MEDS: ALBUTEROL/IPRATROPIUM 3 ML NEB RESP TX SCH ×4 (01:15→19:46)
[2021-11-12] MEDS: LEVOTHYROXINE 100 MCG TABLET PO SCH (05:20)
[2021-11-12] MEDS: PIPERACILLIN/TAZOBACTAM 3,375 MG in SODIUM CHLORIDE 0.9% 100 ML IV SCH ×3 (05:20→22:06)
[2021-11-12] MEDS: HEPARIN 5,000 UNIT/1 ML VIAL SUBCUT SCH ×3 (05:20→18:28)
[2021-11-12 05:46] LABS: Calcium 8.2 MG/DL (8.5-10.1); Osmolality,Calculated 277.7 MOS/KG (273-304); Potassium 3.2 MMOL/L (3.5-5.1)
[2021-11-12] MEDS: DORNASE ALFA 2.5 MG/2.5 ML VIAL RESP TX SCH ×2 (07:51→19:46)
[2021-11-12] MEDS: METOPROLOL TARTRATE 25 MG TABLET PO SCH ×2 (09:18→22:06)
[2021-11-12] MEDS: ATORVASTATIN 40 MG TABLET PO SCH (09:18)
[2021-11-12] MEDS: CHOLECALCIFEROL 1,000 UNIT TABLET PO SCH (09:18)
[2021-11-12] MEDS: ISOSORBIDE DINITRATE 10 MG TABLET PO SCH ×3 (09:18→22:06)
[2021-11-12] MEDS: buPROPion 75 MG TABLET PO SCH ×2 (09:19→22:06)
[2021-11-12] MEDS: amLODIPine 10 MG TABLET PEG SCH (09:19)
[2021-11-12] MEDS: AMIODARONE 200 MG TABLET PO SCH (09:19)
[2021-11-12] MEDS: FAMOTIDINE 8 MG/ML 50 ML/BOTTLE PEG SCH (09:49)
[2021-11-12] MEDS: GABAPENTIN 50 MG/ML 30 ML/BOTTLE PO SCH (09:49)
[2021-11-12] MEDS: MENTHOL/ZINC OXIDE OINT 71 GM JAR TOP SCH ×2 (10:32→22:06)
[2021-11-12] MEDS: HYDROcod/ACETAMIN 7.5-325 MG/15 ML UDCUP PO PRN ×2 (10:48→22:05)
[2021-11-13] MEDS: INSULIN REGULAR 100 UNIT/ML SUBCUT SCH ×4 (00:31→17:19)
[2021-11-13] MEDS: ALBUTEROL/IPRATROPIUM 3 ML NEB RESP TX SCH ×4 (01:00→19:43)
[2021-11-13] MEDS: HEPARIN 5,000 UNIT/1 ML VIAL SUBCUT SCH ×3 (03:00→17:03)
[2021-11-13] MEDS: PIPERACILLIN/TAZOBACTAM 3,375 MG in SODIUM CHLORIDE 0.9% 100 ML IV SCH ×3 (03:01→20:04)
[2021-11-13] MEDS: LEVOTHYROXINE 100 MCG TABLET PO SCH (06:56)
[2021-11-13] MEDS: DORNASE ALFA 2.5 MG/2.5 ML VIAL RESP TX SCH ×2 (07:00→19:50)
[2021-11-13 07:03] LABS: Basophils % 0.3 % (0.0-0.8); Eosinophils # 0.1 10*3/uL (0.0-0.87); Eosinophils % 1.9 % (0.00-10.9); Hematocrit 27.8 VOL% (35.7-47.0); Hemoglobin 8.5 GM/DL (12.0-16.0); Immature Granulocytes % 1.8 %; Immature Granulocytes Absolute 0.11 #; Lymphocytes # 0.9 10*3/uL (1.4-4.0); Lymphocytes % 14.6 % (21.3-54.2); Mean Corpuscular HGB Conc 30.6 GM/DL (32-36); Mean Corpuscular Volume 102.6 FL (87-102); Mean Platelet Volume 8.4 FL (9.6-12.0); Monocytes % 11.7 % (1.7-12.7); Neutrophils % 69.7 % (38.7-73.9); Platelet Count 225 T/CUMM (130-400); Red Blood Count 2.71 MC/CUMM (3.8-5.5); Red Cell Distribution Width 17.9 % (9.3-17.3); White Blood Count 6.2 T/CUMM (4-12)
[2021-11-13 07:21] LABS: Osmolality,Calculated 283.4 MOS/KG (273-304); Potassium 3.2 MMOL/L (3.5-5.1)
[2021-11-13] MEDS: AMIODARONE 200 MG TABLET PO SCH (14:21)
[2021-11-13] MEDS: ISOSORBIDE DINITRATE 10 MG TABLET PO SCH ×3 (14:21→22:33)
[2021-11-13] MEDS: CHOLECALCIFEROL 1,000 UNIT TABLET PO SCH (14:21)
[2021-11-13] MEDS: buPROPion 75 MG TABLET PO SCH ×2 (14:21→22:33)
[2021-11-13] MEDS: FAMOTIDINE 8 MG/ML 50 ML/BOTTLE PEG SCH (14:22)
[2021-11-13] MEDS: GABAPENTIN 50 MG/ML 30 ML/BOTTLE PO SCH (14:22)
[2021-11-13] MEDS: METOPROLOL TARTRATE 25 MG TABLET PO SCH ×2 (14:22→22:32)
[2021-11-13] MEDS: ATORVASTATIN 40 MG TABLET PO SCH (14:22)
[2021-11-13] MEDS: amLODIPine 10 MG TABLET PEG SCH (14:22)
[2021-11-13] MEDS: MENTHOL/ZINC OXIDE OINT 71 GM JAR TOP SCH ×2 (14:23→22:33)
[2021-11-14] MEDS: ALBUTEROL/IPRATROPIUM 3 ML NEB RESP TX SCH ×4 (00:38→18:55)
[2021-11-14] MEDS: HEPARIN 5,000 UNIT/1 ML VIAL SUBCUT SCH ×3 (01:17→22:48)
[2021-11-14] MEDS: INSULIN REGULAR 100 UNIT/ML SUBCUT SCH ×4 (01:17→18:02)
[2021-11-14] MEDS: PIPERACILLIN/TAZOBACTAM 3,375 MG in SODIUM CHLORIDE 0.9% 100 ML IV SCH ×3 (05:28→22:46)
[2021-11-14] MEDS: LEVOTHYROXINE 100 MCG TABLET PO SCH (05:28)
[2021-11-14] MEDS: ACETAMINOPHEN 325 MG TABLET PO PRN ×2 (05:34→22:56)
[2021-11-14 05:42] LABS: Basophils % 0.3 % (0.0-0.8); Eosinophils # 0.1 10*3/uL (0.0-0.87); Eosinophils % 1.7 % (0.00-10.9); Hematocrit 27.1 VOL% (35.7-47.0); Hemoglobin 8.4 GM/DL (12.0-16.0); Immature Granulocytes % 1.9 %; Immature Granulocytes Absolute 0.12 #; Lymphocytes # 1.2 10*3/uL (1.4-4.0); Lymphocytes % 18.3 % (21.3-54.2); Mean Corpuscular Volume 101.9 FL (87-102); Mean Platelet Volume 8.6 FL (9.6-12.0); Monocytes % 11.7 % (1.7-12.7); NRBC # 0.02 10*3/uL; Neutrophils % 66.1 % (38.7-73.9); Platelet Count 232 T/CUMM (130-400); Red Blood Count 2.66 MC/CUMM (3.8-5.5); Red Cell Distribution Width 18.2 % (9.3-17.3); White Blood Count 6.3 T/CUMM (4-12)
[2021-11-14 06:08] LABS: Calcium 8.1 MG/DL (8.5-10.1); Osmolality,Calculated 278.5 MOS/KG (273-304); Potassium 3.1 MMOL/L (3.5-5.1)
[2021-11-14] MEDS: DORNASE ALFA 2.5 MG/2.5 ML VIAL RESP TX SCH ×2 (07:25→18:55)
[2021-11-14] MEDS: CHOLECALCIFEROL 1,000 UNIT TABLET PO SCH (09:10)
[2021-11-14] MEDS: ISOSORBIDE DINITRATE 10 MG TABLET PO SCH ×3 (09:10→22:47)
[2021-11-14] MEDS: METOPROLOL TARTRATE 25 MG TABLET PO SCH ×2 (09:11→22:48)
[2021-11-14] MEDS: FAMOTIDINE 8 MG/ML 50 ML/BOTTLE PEG SCH (09:11)
[2021-11-14] MEDS: buPROPion 75 MG TABLET PO SCH ×2 (09:11→22:48)
[2021-11-14] MEDS: AMIODARONE 200 MG TABLET PO SCH (09:11)
[2021-11-14] MEDS: GABAPENTIN 50 MG/ML 30 ML/BOTTLE PO SCH (09:11)
[2021-11-14] MEDS: amLODIPine 10 MG TABLET PEG SCH (09:11)
[2021-11-14] MEDS: ATORVASTATIN 40 MG TABLET PO SCH (09:11)
[2021-11-14] MEDS: MENTHOL/ZINC OXIDE OINT 71 GM JAR TOP SCH ×2 (09:18→22:47)
[2021-11-15] MEDS: ALBUTEROL/IPRATROPIUM 3 ML NEB RESP TX SCH ×4 (00:14→19:34)
[2021-11-15] MEDS: INSULIN REGULAR 100 UNIT/ML SUBCUT SCH ×3 (00:54→15:20)
[2021-11-15] MEDS: PIPERACILLIN/TAZOBACTAM 3,375 MG in SODIUM CHLORIDE 0.9% 100 ML IV SCH (05:48)
[2021-11-15] MEDS: LEVOTHYROXINE 100 MCG TABLET PO SCH (05:49)
[2021-11-15] MEDS: HEPARIN 5,000 UNIT/1 ML VIAL SUBCUT SCH ×3 (05:49→22:49)
[2021-11-15 06:14] LABS: Basophils % 0.5 % (0.0-0.8); Eosinophils # 0.1 10*3/uL (0.0-0.87); Hematocrit 28.6 VOL% (35.7-47.0); Hemoglobin 8.7 GM/DL (12.0-16.0); Immature Granulocytes % 1.4 %; Immature Granulocytes Absolute 0.09 #; Lymphocytes # 1.1 10*3/uL (1.4-4.0); Lymphocytes % 16.5 % (21.3-54.2); Mean Corpuscular HGB Conc 30.4 GM/DL (32-36); Mean Corpuscular Volume 100.7 FL (87-102); Mean Platelet Volume 8.7 FL (9.6-12.0); Monocytes % 12.7 % (1.7-12.7); Neutrophils % 66.9 % (38.7-73.9); Platelet Count 221 T/CUMM (130-400); Red Blood Count 2.84 MC/CUMM (3.8-5.5); Red Cell Distribution Width 17.5 % (9.3-17.3); White Blood Count 6.5 T/CUMM (4-12)
[2021-11-15 06:33] LABS: Calcium 7.9 MG/DL (8.5-10.1); Osmolality,Calculated 276.8 MOS/KG (273-304); Potassium 3.2 MMOL/L (3.5-5.1)
[2021-11-15] MEDS: DORNASE ALFA 2.5 MG/2.5 ML VIAL RESP TX SCH ×2 (07:20→19:34)
[2021-11-15] MEDS: ISOSORBIDE DINITRATE 10 MG TABLET PO SCH ×3 (13:35→22:49)
[2021-11-15] MEDS: CHOLECALCIFEROL 1,000 UNIT TABLET PO SCH (13:35)
[2021-11-15] MEDS: ATORVASTATIN 40 MG TABLET PO SCH (13:35)
[2021-11-15] MEDS: GABAPENTIN 50 MG/ML 30 ML/BOTTLE PO SCH (13:37)
[2021-11-15] MEDS: buPROPion 75 MG TABLET PO SCH ×2 (15:06→22:48)
[2021-11-15] MEDS: METOPROLOL TARTRATE 25 MG TABLET PO SCH ×2 (15:06→22:49)
[2021-11-15] MEDS: amLODIPine 10 MG TABLET PEG SCH (15:07)
[2021-11-15] MEDS: AMIODARONE 200 MG TABLET PO SCH (15:07)
[2021-11-15] MEDS: MENTHOL/ZINC OXIDE OINT 71 GM JAR TOP SCH ×2 (15:08→22:49)
[2021-11-15] MEDS: FAMOTIDINE 8 MG/ML 50 ML/BOTTLE PEG SCH (15:08)
[2021-11-15] MEDS: ACETAMINOPHEN 325 MG TABLET PO PRN (22:48)
[2021-11-16] MEDS: ALBUTEROL/IPRATROPIUM 3 ML NEB RESP TX SCH ×4 (01:18→19:42)
[2021-11-16 05:09] LABS: Basophils % 0.7 % (0.0-0.8); Eosinophils # 0.1 10*3/uL (0.0-0.87); Eosinophils % 2.4 % (0.00-10.9); Hematocrit 28.8 VOL% (35.7-47.0); Hemoglobin 8.7 GM/DL (12.0-16.0); Immature Granulocytes % 1.3 %; Immature Granulocytes Absolute 0.08 #; Lymphocytes % 17.2 % (21.3-54.2); Mean Corpuscular HGB Conc 30.2 GM/DL (32-36); Mean Corpuscular Volume 103.6 FL (87-102); Mean Platelet Volume 9.1 FL (9.6-12.0); Monocytes % 11.4 % (1.7-12.7); Platelet Count 226 T/CUMM (130-400); Red Blood Count 2.78 MC/CUMM (3.8-5.5); Red Cell Distribution Width 17.8 % (9.3-17.3); White Blood Count 5.9 T/CUMM (4-12)
[2021-11-16 05:34] LABS: Calcium 8.2 MG/DL (8.5-10.1); Potassium 3.3 MMOL/L (3.5-5.1)
[2021-11-16] MEDS: HEPARIN 5,000 UNIT/1 ML VIAL SUBCUT SCH ×3 (05:36→20:37)
[2021-11-16] MEDS: LEVOTHYROXINE 100 MCG TABLET PO SCH (05:36)
[2021-11-16] MEDS: DORNASE ALFA 2.5 MG/2.5 ML VIAL RESP TX SCH ×2 (07:52→19:42)
[2021-11-16] MEDS: METOPROLOL TARTRATE 25 MG TABLET PO SCH ×2 (10:42→20:40)
[2021-11-16] MEDS: amLODIPine 10 MG TABLET PEG SCH (10:42)
[2021-11-16] MEDS: CHOLECALCIFEROL 1,000 UNIT TABLET PO SCH (10:42)
[2021-11-16] MEDS: ISOSORBIDE DINITRATE 10 MG TABLET PO SCH ×3 (10:43→20:41)
[2021-11-16] MEDS: buPROPion 75 MG TABLET PO SCH ×2 (10:43→20:41)
[2021-11-16] MEDS: AMIODARONE 200 MG TABLET PO SCH (10:43)
[2021-11-16] MEDS: ATORVASTATIN 40 MG TABLET PO SCH (10:43)
[2021-11-16] MEDS: GABAPENTIN 50 MG/ML 30 ML/BOTTLE PO SCH (10:43)
[2021-11-16] MEDS: FAMOTIDINE 8 MG/ML 50 ML/BOTTLE PEG SCH (10:44)
[2021-11-16] MEDS: ACETAMINOPHEN 325 MG TABLET PO PRN (20:40)
[2021-11-16] MEDS: MENTHOL/ZINC OXIDE OINT 71 GM JAR TOP SCH (20:57)
[2021-11-17] MEDS: ALBUTEROL/IPRATROPIUM 3 ML NEB RESP TX SCH ×4 (01:30→20:00)
[2021-11-17 05:16] LABS: Basophils % 0.4 % (0.0-0.8); Eosinophils # 0.1 10*3/uL (0.0-0.87); Eosinophils % 1.7 % (0.00-10.9); Hematocrit 29.9 VOL% (35.7-47.0); Hemoglobin 8.9 GM/DL (12.0-16.0); Immature Granulocytes Absolute 0.07 #; Mean Corpuscular HGB Conc 29.8 GM/DL (32-36); Mean Corpuscular Volume 102.7 FL (87-102); Mean Platelet Volume 8.7 FL (9.6-12.0); Monocytes % 9.9 % (1.7-12.7); Platelet Count 237 T/CUMM (130-400); Red Blood Count 2.91 MC/CUMM (3.8-5.5); Red Cell Distribution Width 17.8 % (9.3-17.3); White Blood Count 6.9 T/CUMM (4-12)
[2021-11-17 05:34] LABS: Calcium 8.1 MG/DL (8.5-10.1); Osmolality,Calculated 281.5 MOS/KG (273-304); Potassium 3.2 MMOL/L (3.5-5.1)
[2021-11-17] MEDS: HEPARIN 5,000 UNIT/1 ML VIAL SUBCUT SCH ×3 (06:04→21:19)
[2021-11-17] MEDS: LEVOTHYROXINE 100 MCG TABLET PO SCH (06:05)
[2021-11-17] MEDS: DORNASE ALFA 2.5 MG/2.5 ML VIAL RESP TX SCH ×2 (07:36→20:00)
[2021-11-17] MEDS: ATORVASTATIN 40 MG TABLET PO SCH (09:28)
[2021-11-17] MEDS: amLODIPine 10 MG TABLET PEG SCH (09:28)
[2021-11-17] MEDS: buPROPion 75 MG TABLET PO SCH ×2 (09:29→21:19)
[2021-11-17] MEDS: METOPROLOL TARTRATE 25 MG TABLET PO SCH ×2 (09:29→21:18)
[2021-11-17] MEDS: CHOLECALCIFEROL 1,000 UNIT TABLET PO SCH (09:29)
[2021-11-17] MEDS: MENTHOL/ZINC OXIDE OINT 71 GM JAR TOP SCH ×2 (09:29→21:19)
[2021-11-17] MEDS: ISOSORBIDE DINITRATE 10 MG TABLET PO SCH ×3 (09:29→21:19)
[2021-11-17] MEDS: AMIODARONE 200 MG TABLET PO SCH (09:29)
[2021-11-17] MEDS: FAMOTIDINE 8 MG/ML 50 ML/BOTTLE PEG SCH (09:30)
[2021-11-17] MEDS: GABAPENTIN 50 MG/ML 30 ML/BOTTLE PO SCH (09:30)
[2021-11-17] MEDS: ONDANSETRON 4 MG/2 ML VIAL IV PRN (09:31)
[2021-11-17] MEDS: BENZONATATE 100 MG CAPSULE PO SCH (21:18)
[2021-11-17] MEDS: ACETAMINOPHEN 325 MG TABLET PO PRN (21:18)
[2021-11-18] MEDS: ALBUTEROL/IPRATROPIUM 3 ML NEB RESP TX SCH ×4 (01:39→20:31)
[2021-11-18] MEDS: LEVOTHYROXINE 100 MCG TABLET PO SCH (05:58)
[2021-11-18] MEDS: HEPARIN 5,000 UNIT/1 ML VIAL SUBCUT SCH ×3 (05:59→21:59)
[2021-11-18] MEDS: DORNASE ALFA 2.5 MG/2.5 ML VIAL RESP TX SCH ×2 (07:42→20:31)
[2021-11-18 07:44] LABS: Calcium 8.9 MG/DL (8.5-10.1); Osmolality,Calculated 278.8 MOS/KG (273-304)
[2021-11-18 10:49] LABS: Basophils # 0.1 # (0.0-0.1); Basophils % 0.9 % (0.2-1.0); Eosinophils # 0.1 # (0.0-0.70); Eosinophils % 2.4 % (0.0-10.0); Hematocrit 30.6 VOL% (37.0-47.0); Hemoglobin 9.6 GM/DL (12.0-16.0); Lymphocytes % 16.5 % (20.5-45.5); Mean Corpuscular HGB Conc 31.4 GM/DL (32-36); Mean Corpuscular Volume 102.3 FL (81-99); Mean Platelet Volume 9.6 FL (7.4-10.4); Monocytes % 13.3 % (5.5-11.7); Platelet Count 236 T/CUMM (130-400); Red Blood Count 2.99 MC/CUMM (4.20-5.40); White Blood Count 5.9 T/CUMM (4.8-10.8)
[2021-11-18] MEDS: AMIODARONE 200 MG TABLET PO SCH (13:45)
[2021-11-18] MEDS: METOPROLOL TARTRATE 25 MG TABLET PO SCH ×2 (13:46→21:59)
[2021-11-18] MEDS: ISOSORBIDE DINITRATE 10 MG TABLET PO SCH ×3 (13:46→21:59)
[2021-11-18] MEDS: amLODIPine 10 MG TABLET PEG SCH (13:46)
[2021-11-18] MEDS: CHOLECALCIFEROL 1,000 UNIT TABLET PO SCH (13:46)
[2021-11-18] MEDS: buPROPion 75 MG TABLET PO SCH ×2 (13:46→21:59)
[2021-11-18] MEDS: ATORVASTATIN 40 MG TABLET PO SCH (13:46)
[2021-11-18] MEDS: FAMOTIDINE 8 MG/ML 50 ML/BOTTLE PEG SCH (13:47)
[2021-11-18] MEDS: BENZONATATE 100 MG CAPSULE PO SCH ×3 (13:47→21:59)
[2021-11-18] MEDS: MENTHOL/ZINC OXIDE OINT 71 GM JAR TOP SCH ×2 (13:47→22:00)
[2021-11-18] MEDS: GABAPENTIN 50 MG/ML 30 ML/BOTTLE PO SCH (13:47)
[2021-11-18] MEDS: ACETAMINOPHEN 325 MG TABLET PO PRN (22:09)
[2021-11-19] MEDS: ALBUTEROL/IPRATROPIUM 3 ML NEB RESP TX SCH ×4 (02:04→19:17)
[2021-11-19] MEDS: LEVOTHYROXINE 100 MCG TABLET PO SCH (05:44)
[2021-11-19] MEDS: HEPARIN 5,000 UNIT/1 ML VIAL SUBCUT SCH ×3 (05:45→22:05)
[2021-11-19] MEDS: DORNASE ALFA 2.5 MG/2.5 ML VIAL RESP TX SCH ×2 (07:13→19:17)
[2021-11-19] MEDS: BENZONATATE 100 MG CAPSULE PO SCH ×3 (09:07→22:04)
[2021-11-19] MEDS: amLODIPine 10 MG TABLET PEG SCH (09:07)
[2021-11-19] MEDS: ISOSORBIDE DINITRATE 10 MG TABLET PO SCH ×3 (09:07→22:05)
[2021-11-19] MEDS: CHOLECALCIFEROL 1,000 UNIT TABLET PO SCH (09:07)
[2021-11-19] MEDS: METOPROLOL TARTRATE 25 MG TABLET PO SCH ×2 (09:07→22:04)
[2021-11-19] MEDS: MENTHOL/ZINC OXIDE OINT 71 GM JAR TOP SCH (09:07)
[2021-11-19] MEDS: GABAPENTIN 50 MG/ML 30 ML/BOTTLE PO SCH (09:08)
[2021-11-19] MEDS: ATORVASTATIN 40 MG TABLET PO SCH (09:08)
[2021-11-19] MEDS: FAMOTIDINE 8 MG/ML 50 ML/BOTTLE PEG SCH (09:08)
[2021-11-19] MEDS: buPROPion 75 MG TABLET PO SCH ×2 (09:08→22:05)
[2021-11-19] MEDS: AMIODARONE 200 MG TABLET PO SCH (09:08)
[2021-11-19] MEDS: ACETAMINOPHEN 325 MG TABLET PO PRN (22:04)
[2021-11-20] MEDS: ALBUTEROL/IPRATROPIUM 3 ML NEB RESP TX SCH ×4 (01:40→19:15)
[2021-11-20] MEDS: ACETAMINOPHEN 325 MG TABLET PO PRN ×2 (03:37→21:35)
[2021-11-20] MEDS: LEVOTHYROXINE 100 MCG TABLET PO SCH (06:22)
[2021-11-20] MEDS: HEPARIN 5,000 UNIT/1 ML VIAL SUBCUT SCH ×3 (06:22→21:36)
[2021-11-20] MEDS: DORNASE ALFA 2.5 MG/2.5 ML VIAL RESP TX SCH ×2 (07:30→19:15)
[2021-11-20] MEDS: ISOSORBIDE DINITRATE 10 MG TABLET PO SCH ×3 (10:27→21:34)
[2021-11-20] MEDS: BENZONATATE 100 MG CAPSULE PO SCH ×3 (10:27→21:35)
[2021-11-20] MEDS: MENTHOL/ZINC OXIDE OINT 71 GM JAR TOP SCH ×3 (10:28→22:37)
[2021-11-20] MEDS: ATORVASTATIN 40 MG TABLET PO SCH (13:12)
[2021-11-20] MEDS: AMIODARONE 200 MG TABLET PO SCH (13:12)
[2021-11-20] MEDS: amLODIPine 10 MG TABLET PEG SCH (13:13)
[2021-11-20] MEDS: FAMOTIDINE 8 MG/ML 50 ML/BOTTLE PEG SCH ×2 (13:13→13:20)
[2021-11-20] MEDS: METOPROLOL TARTRATE 25 MG TABLET PO SCH ×2 (13:13→21:35)
[2021-11-20] MEDS: GABAPENTIN 50 MG/ML 30 ML/BOTTLE PO SCH (13:13)
[2021-11-20] MEDS: CHOLECALCIFEROL 1,000 UNIT TABLET PO SCH (13:14)
[2021-11-20] MEDS: buPROPion 75 MG TABLET PO SCH ×2 (13:14→21:35)
[2021-11-20] MEDS: FAMOTIDINE 20 MG TABLET PEG SCH (13:21)
[2021-11-21] MEDS: ALBUTEROL/IPRATROPIUM 3 ML NEB RESP TX SCH ×4 (00:29→19:51)
[2021-11-21] MEDS: LEVOTHYROXINE 100 MCG TABLET PO SCH (06:13)
[2021-11-21] MEDS: HEPARIN 5,000 UNIT/1 ML VIAL SUBCUT SCH ×3 (06:13→20:24)
[2021-11-21] MEDS: DORNASE ALFA 2.5 MG/2.5 ML VIAL RESP TX SCH ×2 (07:55→19:51)
[2021-11-21] MEDS: ISOSORBIDE DINITRATE 10 MG TABLET PO SCH ×3 (09:46→20:23)
[2021-11-21] MEDS: ATORVASTATIN 40 MG TABLET PO SCH (09:46)
[2021-11-21] MEDS: FAMOTIDINE 20 MG TABLET PEG SCH (09:47)
[2021-11-21] MEDS: buPROPion 75 MG TABLET PO SCH ×2 (09:47→20:23)
[2021-11-21] MEDS: CHOLECALCIFEROL 1,000 UNIT TABLET PO SCH (09:47)
[2021-11-21] MEDS: MENTHOL/ZINC OXIDE OINT 71 GM JAR TOP SCH ×2 (09:47→21:58)
[2021-11-21] MEDS: AMIODARONE 200 MG TABLET PO SCH (09:47)
[2021-11-21] MEDS: METOPROLOL TARTRATE 25 MG TABLET PO SCH ×2 (09:47→20:23)
[2021-11-21] MEDS: GABAPENTIN 50 MG/ML 30 ML/BOTTLE PO SCH (09:47)
[2021-11-21] MEDS: BENZONATATE 100 MG CAPSULE PO SCH ×3 (09:47→20:23)
[2021-11-21] MEDS: amLODIPine 10 MG TABLET PEG SCH (09:47)
[2021-11-22] MEDS: ALBUTEROL/IPRATROPIUM 3 ML NEB RESP TX SCH ×4 (00:34→19:33)
[2021-11-22] MEDS: HEPARIN 5,000 UNIT/1 ML VIAL SUBCUT SCH ×3 (05:06→21:08)
[2021-11-22] MEDS: LEVOTHYROXINE 100 MCG TABLET PO SCH (05:06)
[2021-11-22] MEDS: ACETAMINOPHEN 325 MG TABLET PO PRN (07:35)
[2021-11-22] MEDS: DORNASE ALFA 2.5 MG/2.5 ML VIAL RESP TX SCH ×2 (07:45→19:33)
[2021-11-22] MEDS: MENTHOL/ZINC OXIDE OINT 71 GM JAR TOP SCH ×2 (13:52→21:12)
[2021-11-22] MEDS: ISOSORBIDE DINITRATE 10 MG TABLET PO SCH ×3 (13:52→21:08)
[2021-11-22] MEDS: amLODIPine 10 MG TABLET PEG SCH (13:52)
[2021-11-22] MEDS: ATORVASTATIN 40 MG TABLET PO SCH (13:53)
[2021-11-22] MEDS: AMIODARONE 200 MG TABLET PO SCH (13:53)
[2021-11-22] MEDS: METOPROLOL TARTRATE 25 MG TABLET PO SCH ×2 (13:53→21:08)
[2021-11-22] MEDS: CHOLECALCIFEROL 1,000 UNIT TABLET PO SCH (13:53)
[2021-11-22] MEDS: BENZONATATE 100 MG CAPSULE PO SCH ×3 (13:53→21:08)
[2021-11-22] MEDS: FAMOTIDINE 20 MG TABLET PEG SCH (13:53)
[2021-11-22] MEDS: buPROPion 75 MG TABLET PO SCH ×2 (13:53→21:08)
[2021-11-22] MEDS: GABAPENTIN 50 MG/ML 30 ML/BOTTLE PO SCH (14:00)
[2021-11-23] MEDS: ALBUTEROL/IPRATROPIUM 3 ML NEB RESP TX SCH ×4 (00:05→19:05)
[2021-11-23] MEDS: LEVOTHYROXINE 100 MCG TABLET PO SCH (05:32)
[2021-11-23] MEDS: HEPARIN 5,000 UNIT/1 ML VIAL SUBCUT SCH ×3 (05:33→21:19)
[2021-11-23 07:16] LABS: Basophils % 0.4 % (0.0-0.8); Eosinophils # 0.1 10*3/uL (0.0-0.87); Eosinophils % 2.3 % (0.00-10.9); Hematocrit 30.6 VOL% (35.7-47.0); Hemoglobin 9.1 GM/DL (12.0-16.0); Immature Granulocytes % 0.5 %; Immature Granulocytes Absolute 0.03 #; Lymphocytes # 0.8 10*3/uL (1.4-4.0); Lymphocytes % 14.6 % (21.3-54.2); Mean Corpuscular HGB Conc 29.7 GM/DL (32-36); Mean Corpuscular Volume 105.2 FL (87-102); Mean Platelet Volume 9.5 FL (9.6-12.0); Monocytes % 12.8 % (1.7-12.7); Neutrophils % 69.4 % (38.7-73.9); Platelet Count 273 T/CUMM (130-400); Red Blood Count 2.91 MC/CUMM (3.8-5.5); Red Cell Distribution Width 16.4 % (9.3-17.3); White Blood Count 5.6 T/CUMM (4-12)
[2021-11-23 07:43] LABS: Calcium 8.6 MG/DL (8.5-10.1); Osmolality,Calculated 279.7 MOS/KG (273-304); Potassium 4.6 MMOL/L (3.5-5.1)
[2021-11-23] MEDS: DORNASE ALFA 2.5 MG/2.5 ML VIAL RESP TX SCH ×2 (07:45→19:05)
[2021-11-23] MEDS: MENTHOL/ZINC OXIDE OINT 71 GM JAR TOP SCH ×2 (10:45→21:33)
[2021-11-23] MEDS: METOPROLOL TARTRATE 25 MG TABLET PO SCH (10:45)
[2021-11-23] MEDS: amLODIPine 10 MG TABLET PEG SCH (10:45)
[2021-11-23] MEDS: AMIODARONE 200 MG TABLET PO SCH (10:46)
[2021-11-23] MEDS: ATORVASTATIN 40 MG TABLET PO SCH (10:46)
[2021-11-23] MEDS: CHOLECALCIFEROL 1,000 UNIT TABLET PO SCH (10:46)
[2021-11-23] MEDS: ISOSORBIDE DINITRATE 10 MG TABLET PO SCH ×2 (10:46→15:25)
[2021-11-23] MEDS: buPROPion 75 MG TABLET PO SCH (10:46)
[2021-11-23] MEDS: BENZONATATE 100 MG CAPSULE PO SCH ×2 (10:46→15:26)
[2021-11-23] MEDS: FAMOTIDINE 20 MG TABLET PEG SCH (10:46)
[2021-11-23] MEDS: GABAPENTIN 50 MG/ML 30 ML/BOTTLE PO SCH (10:52)
[2021-11-23] MEDS: ONDANSETRON 4 MG/2 ML VIAL IV PRN ×2 (15:15→19:35)
[2021-11-23] MEDS ORDERED: PROMETHAZINE 25 MG/1 ML VIAL IM PRN (18:12)
[2021-11-24] MEDS: METOPROLOL TARTRATE 25 MG TABLET PO SCH ×3 (00:01→20:49)
[2021-11-24] MEDS: buPROPion 75 MG TABLET PO SCH ×3 (00:01→20:49)
[2021-11-24] MEDS: BENZONATATE 100 MG CAPSULE PO SCH ×4 (00:02→20:49)
[2021-11-24] MEDS: ISOSORBIDE DINITRATE 10 MG TABLET PO SCH ×4 (00:02→20:48)
[2021-11-24] MEDS: ALBUTEROL/IPRATROPIUM 3 ML NEB RESP TX SCH ×4 (00:14→19:02)
[2021-11-24] MEDS: LEVOTHYROXINE 100 MCG TABLET PO SCH (05:32)
[2021-11-24] MEDS: HEPARIN 5,000 UNIT/1 ML VIAL SUBCUT SCH ×3 (05:32→20:48)
[2021-11-24] MEDS: DORNASE ALFA 2.5 MG/2.5 ML VIAL RESP TX SCH ×2 (08:27→19:02)
[2021-11-24] MEDS: GABAPENTIN 50 MG/ML 30 ML/BOTTLE PO SCH (08:49)
[2021-11-24] MEDS: MENTHOL/ZINC OXIDE OINT 71 GM JAR TOP SCH ×2 (08:49→20:49)
[2021-11-24] MEDS: FAMOTIDINE 20 MG TABLET PEG SCH (08:50)
[2021-11-24] MEDS: CHOLECALCIFEROL 1,000 UNIT TABLET PO SCH (08:50)
[2021-11-24] MEDS: AMIODARONE 200 MG TABLET PO SCH (08:51)
[2021-11-24] MEDS: ATORVASTATIN 40 MG TABLET PO SCH (08:51)
[2021-11-24] MEDS: amLODIPine 10 MG TABLET PEG SCH (08:52)
[2021-11-24] MEDS: hydrALAZINE 10 MG TABLET PO SCH (20:49)
[2021-11-25] MEDS: ALBUTEROL/IPRATROPIUM 3 ML NEB RESP TX SCH ×4 (00:12→21:00)
[2021-11-25] MEDS: ONDANSETRON 4 MG/2 ML VIAL IV PRN (00:46)
[2021-11-25] MEDS ORDERED: FUROSEMIDE 40 MG/4 ML VIAL IV ONE (02:08)
[2021-11-25] MEDS ORDERED: methylPREDNISolone SOD SUC 125 MG/2 ML VIAL IV ONE (02:08)
[2021-11-25 02:45] LABS: Alanine Aminotransferase 37 U/L (13-56); Albumin 2.1 G/DL (3.4-5.0); Alkaline Phosphatase 194 U/L (45-117); Aspartate Amino Transferase 41 U/L (0-37); Bilirubin,Total < 0.39 MG/DL (0.20-1.00); Blood Urea Nitrogen 48 MG/DL (7-18); Calcium 8.6 MG/DL (8.5-10.1); Carbon Dioxide 26 MMOL/L (21-32); Estimated Glom Filtration Rate 11 ML/MIN; Glucose 76 MG/DL (74-106); Osmolality,Calculated 281.1 MOS/KG (273-304); Sodium 135 MMOL/L (136-145); Total Protein 6.6 G/DL (6.4-8.2)
[2021-11-25 03:09] LABS: ABG Base Excess 0.4 MMOL/L (-2.5-2.5); ABG HCO3 24.8 MMOL/L (20-26); ABG Oxygen Saturation 99.1 % (95-100); ABG PH 7.398 (7.35-7.45); Allen Test Positive
[2021-11-25 03:11] LABS: Potassium 6.5 MMOL/L (3.5-5.1)
[2021-11-25] MEDS: LEVOTHYROXINE 100 MCG TABLET PO SCH (05:35)
[2021-11-25] MEDS: HEPARIN 5,000 UNIT/1 ML VIAL SUBCUT SCH ×3 (05:35→21:31)
[2021-11-25] MEDS: DORNASE ALFA 2.5 MG/2.5 ML VIAL RESP TX SCH ×2 (07:25→20:50)
[2021-11-25 10:28] LABS: Hepatitis B Core IgM Quant 0.17 Index; Hepatitis B Surface Ag Quant < 0.10 Index; Hepatitis B Surface Ag Result Non-Reactive (NonReactive); Hepatitis C Virus Ab Quant > 11.00 Index; Hepatitis C Virus Ab Result Reactive (NonReactive)
[2021-11-25] MEDS: BENZONATATE 100 MG CAPSULE PO SCH ×3 (14:18→21:31)
[2021-11-25] MEDS: ISOSORBIDE DINITRATE 10 MG TABLET PO SCH ×3 (14:19→21:31)
[2021-11-25] MEDS: AMIODARONE 200 MG TABLET PO SCH (14:27)
[2021-11-25] MEDS: CHOLECALCIFEROL 1,000 UNIT TABLET PO SCH (14:27)
[2021-11-25] MEDS: FAMOTIDINE 20 MG TABLET PEG SCH (14:27)
[2021-11-25] MEDS: METOPROLOL TARTRATE 25 MG TABLET PO SCH ×2 (14:28→21:31)
[2021-11-25] MEDS: hydrALAZINE 10 MG TABLET PO SCH ×2 (14:28→21:31)
[2021-11-25] MEDS: MENTHOL/ZINC OXIDE OINT 71 GM JAR TOP SCH ×2 (14:28→21:37)
[2021-11-25] MEDS: buPROPion 75 MG TABLET PO SCH ×2 (14:28→21:31)
[2021-11-25] MEDS: ATORVASTATIN 40 MG TABLET PO SCH (14:28)
[2021-11-25] MEDS: amLODIPine 10 MG TABLET PEG SCH (14:28)
[2021-11-25] MEDS: GABAPENTIN 50 MG/ML 30 ML/BOTTLE PO SCH (14:36)
[2021-11-25] MEDS ORDERED: TUBERCULIN SKIN TEST 0.1 ML SYRINGE INTRADERM ONE (17:00)
[2021-11-26] MEDS: ALBUTEROL/IPRATROPIUM 3 ML NEB RESP TX SCH ×4 (01:49→19:42)
[2021-11-26] MEDS: LEVOTHYROXINE 100 MCG TABLET PO SCH (06:06)
[2021-11-26] MEDS: HEPARIN 5,000 UNIT/1 ML VIAL SUBCUT SCH ×3 (06:07→21:11)
[2021-11-26] MEDS: DORNASE ALFA 2.5 MG/2.5 ML VIAL RESP TX SCH ×2 (07:33→19:47)
[2021-11-26] MEDS: ISOSORBIDE DINITRATE 10 MG TABLET PO SCH ×3 (09:57→21:11)
[2021-11-26] MEDS: ATORVASTATIN 40 MG TABLET PO SCH (10:00)
[2021-11-26] MEDS: FAMOTIDINE 20 MG TABLET PEG SCH (10:01)
[2021-11-26] MEDS: CHOLECALCIFEROL 1,000 UNIT TABLET PO SCH (10:03)
[2021-11-26] MEDS: AMIODARONE 200 MG TABLET PO SCH (10:04)
[2021-11-26] MEDS: buPROPion 75 MG TABLET PO SCH ×2 (10:05→21:11)
[2021-11-26] MEDS: BENZONATATE 100 MG CAPSULE PO SCH ×3 (10:05→21:11)
[2021-11-26] MEDS: hydrALAZINE 10 MG TABLET PO SCH ×2 (10:06→21:11)
[2021-11-26] MEDS: METOPROLOL TARTRATE 25 MG TABLET PO SCH ×2 (10:07→21:11)
[2021-11-26] MEDS: amLODIPine 10 MG TABLET PEG SCH (10:08)
[2021-11-26] MEDS: MENTHOL/ZINC OXIDE OINT 71 GM JAR TOP SCH ×2 (10:11→21:14)
[2021-11-26] MEDS: GABAPENTIN 50 MG/ML 30 ML/BOTTLE PO SCH (10:28)
[2021-11-27] MEDS: ALBUTEROL/IPRATROPIUM 3 ML NEB RESP TX SCH ×4 (00:50→19:11)
[2021-11-27] MEDS: ACETAMINOPHEN 325 MG TABLET PO PRN (01:04)
[2021-11-27 05:41] LABS: Basophils % 0.3 % (0.0-0.8); Eosinophils # 0.3 10*3/uL (0.0-0.87); Eosinophils % 3.6 % (0.00-10.9); Hematocrit 29.9 VOL% (35.7-47.0); Immature Granulocytes % 1.1 %; Immature Granulocytes Absolute 0.08 #; Lymphocytes # 1.2 10*3/uL (1.4-4.0); Lymphocytes % 16.3 % (21.3-54.2); Mean Corpuscular HGB Conc 30.1 GM/DL (32-36); Mean Corpuscular Volume 103.8 FL (87-102); Mean Platelet Volume 9.4 FL (9.6-12.0); Neutrophils % 65.7 % (38.7-73.9); Platelet Count 280 T/CUMM (130-400); Red Blood Count 2.88 MC/CUMM (3.8-5.5); Red Cell Distribution Width 15.4 % (9.3-17.3); White Blood Count 7.5 T/CUMM (4-12)
[2021-11-27 05:53] LABS: Calcium 8.6 MG/DL (8.5-10.1); Osmolality,Calculated 278.4 MOS/KG (273-304); Potassium 5.1 MMOL/L (3.5-5.1)
[2021-11-27] MEDS: LEVOTHYROXINE 100 MCG TABLET PO SCH (05:59)
[2021-11-27] MEDS: HEPARIN 5,000 UNIT/1 ML VIAL SUBCUT SCH ×2 (05:59→22:34)
[2021-11-27] MEDS: DORNASE ALFA 2.5 MG/2.5 ML VIAL RESP TX SCH ×2 (06:55→19:11)
[2021-11-27] MEDS ORDERED: HEPARIN 10,000 UNIT/10 ML VIAL IV SCH (09:45)
[2021-11-27] MEDS: AMIODARONE 200 MG TABLET PO SCH (12:45)
[2021-11-27] MEDS: buPROPion 75 MG TABLET PO SCH ×2 (12:45→22:33)
[2021-11-27] MEDS: BENZONATATE 100 MG CAPSULE PO SCH ×3 (12:45→22:33)
[2021-11-27] MEDS: ATORVASTATIN 40 MG TABLET PO SCH (12:45)
[2021-11-27] MEDS: FAMOTIDINE 20 MG TABLET PEG SCH (12:45)
[2021-11-27] MEDS: CHOLECALCIFEROL 1,000 UNIT TABLET PO SCH (12:46)
[2021-11-27] MEDS: amLODIPine 10 MG TABLET PEG SCH (12:47)
[2021-11-27] MEDS: hydrALAZINE 10 MG TABLET PO SCH ×2 (12:47→22:32)
[2021-11-27] MEDS: METOPROLOL TARTRATE 25 MG TABLET PO SCH ×2 (12:47→22:34)
[2021-11-27] MEDS: ISOSORBIDE DINITRATE 10 MG TABLET PO SCH ×3 (12:49→22:34)
[2021-11-27] MEDS: GABAPENTIN 50 MG/ML 30 ML/BOTTLE PO SCH (12:53)
[2021-11-27] MEDS: ONDANSETRON 4 MG/2 ML VIAL IV PRN (13:50)
[2021-11-27] MEDS: MENTHOL/ZINC OXIDE OINT 71 GM JAR TOP SCH ×2 (15:21→22:34)
[2021-11-27] MEDS ORDERED: APIXABAN 2.5 MG TABLET PO SCH (21:00)
[2021-11-28] MEDS: ALBUTEROL/IPRATROPIUM 3 ML NEB RESP TX SCH ×4 (00:03→19:21)
[2021-11-28] MEDS: LEVOTHYROXINE 100 MCG TABLET PO SCH (05:44)
[2021-11-28] MEDS: DORNASE ALFA 2.5 MG/2.5 ML VIAL RESP TX SCH ×2 (07:14→19:21)
[2021-11-28] MEDS: HEPARIN 5,000 UNIT/1 ML VIAL SUBCUT SCH ×2 (10:03→21:58)
[2021-11-28] MEDS: CHOLECALCIFEROL 1,000 UNIT TABLET PO SCH (10:05)
[2021-11-28] MEDS: BENZONATATE 100 MG CAPSULE PO SCH ×3 (10:05→21:57)
[2021-11-28] MEDS: buPROPion 75 MG TABLET PO SCH ×2 (10:05→21:58)
[2021-11-28] MEDS: AMIODARONE 200 MG TABLET PO SCH (10:05)
[2021-11-28] MEDS: FAMOTIDINE 20 MG TABLET PEG SCH (10:06)
[2021-11-28] MEDS: amLODIPine 10 MG TABLET PEG SCH (10:07)
[2021-11-28] MEDS: ATORVASTATIN 40 MG TABLET PO SCH (10:07)
[2021-11-28] MEDS: hydrALAZINE 10 MG TABLET PO SCH ×2 (10:07→21:58)
[2021-11-28] MEDS: ISOSORBIDE DINITRATE 10 MG TABLET PO SCH ×3 (10:08→21:58)
[2021-11-28] MEDS: MENTHOL/ZINC OXIDE OINT 71 GM JAR TOP SCH ×2 (10:10→21:58)
[2021-11-28] MEDS: GABAPENTIN 50 MG/ML 30 ML/BOTTLE PO SCH (10:11)
[2021-11-28] MEDS: METOPROLOL TARTRATE 25 MG TABLET PO SCH ×2 (10:17→21:58)
[2021-11-28] MEDS: BISACODYL 5 MG TABLET PO PRN (15:36)
[2021-11-29] MEDS: ALBUTEROL/IPRATROPIUM 3 ML NEB RESP TX SCH ×4 (00:03→19:40)
[2021-11-29] MEDS: LEVOTHYROXINE 100 MCG TABLET PO SCH (05:44)
[2021-11-29] MEDS: DORNASE ALFA 2.5 MG/2.5 ML VIAL RESP TX SCH ×2 (07:35→19:40)
[2021-11-29] MEDS ORDERED: POTASSIUM CHLORIDE 20 MEQ TABLET PO PRN (07:55)
[2021-11-29] MEDS: CHOLECALCIFEROL 1,000 UNIT TABLET PO SCH (08:53)
[2021-11-29] MEDS: FAMOTIDINE 20 MG TABLET PEG SCH (08:53)
[2021-11-29] MEDS: BISACODYL 5 MG TABLET PO PRN (08:54)
[2021-11-29] MEDS: AMIODARONE 200 MG TABLET PO SCH (08:55)
[2021-11-29] MEDS: buPROPion 75 MG TABLET PO SCH ×2 (08:55→21:16)
[2021-11-29] MEDS: ATORVASTATIN 40 MG TABLET PO SCH (08:56)
[2021-11-29] MEDS: ISOSORBIDE DINITRATE 10 MG TABLET PO SCH ×3 (08:56→21:16)
[2021-11-29] MEDS: HEPARIN 5,000 UNIT/1 ML VIAL SUBCUT SCH ×2 (08:56→21:17)
[2021-11-29] MEDS: GABAPENTIN 50 MG/ML 30 ML/BOTTLE PO SCH (09:00)
[2021-11-29] MEDS ORDERED: SODIUM PHOSPHATE ENEMA 133 ML BOTTLE RECTAL ONE (13:00)
[2021-11-29] MEDS: hydrALAZINE 10 MG TABLET PO SCH ×2 (17:52→21:16)
[2021-11-29] MEDS: METOPROLOL TARTRATE 25 MG TABLET PO SCH ×2 (17:52→21:16)
[2021-11-29] MEDS: amLODIPine 10 MG TABLET PEG SCH (17:53)
[2021-11-29] MEDS: MENTHOL/ZINC OXIDE OINT 71 GM JAR TOP SCH ×2 (17:54→21:16)
[2021-11-29] MEDS: BENZONATATE 100 MG CAPSULE PO SCH ×2 (21:16→21:18)
[2021-11-30] MEDS: ALBUTEROL/IPRATROPIUM 3 ML NEB RESP TX SCH ×4 (01:16→19:46)
[2021-11-30] MEDS: LEVOTHYROXINE 100 MCG TABLET PO SCH (06:18)
[2021-11-30] MEDS: DORNASE ALFA 2.5 MG/2.5 ML VIAL RESP TX SCH ×2 (07:37→19:46)
[2021-11-30] MEDS: CHOLECALCIFEROL 1,000 UNIT TABLET PO SCH (12:47)
[2021-11-30] MEDS: amLODIPine 10 MG TABLET PEG SCH (12:48)
[2021-11-30] MEDS: ATORVASTATIN 40 MG TABLET PO SCH (12:48)
[2021-11-30] MEDS: buPROPion 75 MG TABLET PO SCH ×2 (12:48→21:35)
[2021-11-30] MEDS: BENZONATATE 100 MG CAPSULE PO SCH ×4 (12:48→21:35)
[2021-11-30] MEDS: AMIODARONE 200 MG TABLET PO SCH (12:49)
[2021-11-30] MEDS: METOPROLOL TARTRATE 25 MG TABLET PO SCH ×2 (12:49→21:35)
[2021-11-30] MEDS: FAMOTIDINE 20 MG TABLET PEG SCH (12:49)
[2021-11-30] MEDS: hydrALAZINE 10 MG TABLET PO SCH ×2 (12:49→21:35)
[2021-11-30] MEDS: ISOSORBIDE DINITRATE 10 MG TABLET PO SCH ×3 (12:50→21:35)
[2021-11-30] MEDS: HEPARIN 5,000 UNIT/1 ML VIAL SUBCUT SCH ×2 (12:51→21:35)
[2021-11-30] MEDS: GABAPENTIN 50 MG/ML 30 ML/BOTTLE PO SCH (13:16)
[2021-11-30] MEDS: MENTHOL/ZINC OXIDE OINT 71 GM JAR TOP SCH ×2 (13:16→21:35)
[2021-11-30] MEDS ORDERED: MINERAL OIL ENEMA 133 ML BOTTLE RECTAL ONE (13:50)
[2021-11-30] MEDS: ONDANSETRON 4 MG/2 ML VIAL IV PRN ×2 (16:57→22:03)
[2021-11-30] MEDS: BISACODYL 5 MG TABLET PO PRN (17:08)
[2021-11-30] MEDS: ACETAMINOPHEN 325 MG TABLET PO PRN (21:35)
[2021-12-01] MEDS: ALBUTEROL/IPRATROPIUM 3 ML NEB RESP TX SCH ×4 (01:41→19:50)
[2021-12-01 06:19] LABS: Basophils % 0.5 % (0.0-0.8); Eosinophils # 0.2 10*3/uL (0.0-0.87); Eosinophils % 2.5 % (0.00-10.9); Hematocrit 34.3 VOL% (35.7-47.0); Hemoglobin 10.3 GM/DL (12.0-16.0); Immature Granulocytes % 4.9 %; Immature Granulocytes Absolute 0.43 #; Lymphocytes # 0.8 10*3/uL (1.4-4.0); Lymphocytes % 9.5 % (21.3-54.2); Mean Corpuscular Volume 100.3 FL (87-102); Mean Platelet Volume 9.2 FL (9.6-12.0); Monocytes % 14.1 % (1.7-12.7); Neutrophils % 68.5 % (38.7-73.9); Platelet Count 328 T/CUMM (130-400); Red Blood Count 3.42 MC/CUMM (3.8-5.5); Red Cell Distribution Width 14.6 % (9.3-17.3); White Blood Count 8.8 T/CUMM (4-12)
[2021-12-01 06:29] LABS: Calcium 8.9 MG/DL (8.5-10.1); Osmolality,Calculated 280.8 MOS/KG (273-304); Potassium 3.9 MMOL/L (3.5-5.1)
[2021-12-01] MEDS: ONDANSETRON 4 MG/2 ML VIAL IV PRN ×3 (06:36→22:28)
[2021-12-01] MEDS: DORNASE ALFA 2.5 MG/2.5 ML VIAL RESP TX SCH ×2 (07:37→19:50)
[2021-12-01] MEDS: ISOSORBIDE DINITRATE 10 MG TABLET PO SCH ×3 (08:52→22:27)
[2021-12-01] MEDS: CHOLECALCIFEROL 1,000 UNIT TABLET PO SCH (08:52)
[2021-12-01] MEDS: FAMOTIDINE 20 MG TABLET PEG SCH (08:53)
[2021-12-01] MEDS: METOPROLOL TARTRATE 25 MG TABLET PO SCH ×2 (08:53→22:27)
[2021-12-01] MEDS: ATORVASTATIN 40 MG TABLET PO SCH (08:53)
[2021-12-01] MEDS: LEVOTHYROXINE 100 MCG TABLET PO SCH (08:54)
[2021-12-01] MEDS: BENZONATATE 100 MG CAPSULE PO SCH ×3 (08:54→22:27)
[2021-12-01] MEDS: amLODIPine 10 MG TABLET PEG SCH (08:54)
[2021-12-01] MEDS: hydrALAZINE 10 MG TABLET PO SCH ×2 (08:55→22:27)
[2021-12-01] MEDS: AMIODARONE 200 MG TABLET PO SCH (08:55)
[2021-12-01] MEDS: HEPARIN 5,000 UNIT/1 ML VIAL SUBCUT SCH ×2 (08:58→22:25)
[2021-12-01] MEDS: buPROPion 75 MG TABLET PO SCH ×2 (09:33→22:27)
[2021-12-01] MEDS: MENTHOL/ZINC OXIDE OINT 71 GM JAR TOP SCH ×2 (09:40→22:28)
[2021-12-01] MEDS: GABAPENTIN 50 MG/ML 30 ML/BOTTLE PO SCH (09:48)
[2021-12-01] MEDS: ACETAMINOPHEN 325 MG TABLET PO PRN (22:27)
[2021-12-01] MEDS: POLYETHYLENE GLYCOL POWDER 17 GM PACK PO PRN (22:30)
[2021-12-02] MEDS: ALBUTEROL/IPRATROPIUM 3 ML NEB RESP TX SCH ×4 (02:05→19:20)
[2021-12-02] MEDS: LEVOTHYROXINE 100 MCG TABLET PO SCH (06:04)
[2021-12-02] MEDS: DORNASE ALFA 2.5 MG/2.5 ML VIAL RESP TX SCH ×2 (07:36→19:20)
[2021-12-02] MEDS: ATORVASTATIN 40 MG TABLET PO SCH (09:01)
[2021-12-02] MEDS: BENZONATATE 100 MG CAPSULE PO SCH ×3 (09:01→22:00)
[2021-12-02] MEDS: GABAPENTIN 50 MG/ML 30 ML/BOTTLE PO SCH (09:01)
[2021-12-02] MEDS: MENTHOL/ZINC OXIDE OINT 71 GM JAR TOP SCH ×2 (09:01→22:01)
[2021-12-02] MEDS: buPROPion 75 MG TABLET PO SCH ×2 (09:01→22:00)
[2021-12-02] MEDS: AMIODARONE 200 MG TABLET PO SCH (09:01)
[2021-12-02] MEDS: ISOSORBIDE DINITRATE 10 MG TABLET PO SCH ×3 (09:01→21:59)
[2021-12-02] MEDS: FAMOTIDINE 20 MG TABLET PEG SCH (09:01)
[2021-12-02] MEDS: CHOLECALCIFEROL 1,000 UNIT TABLET PO SCH (09:01)
[2021-12-02] MEDS: METOPROLOL TARTRATE 25 MG TABLET PO SCH ×2 (09:01→22:00)
[2021-12-02] MEDS: ONDANSETRON 4 MG/2 ML VIAL IV PRN (09:01)
[2021-12-02] MEDS: hydrALAZINE 10 MG TABLET PO SCH ×2 (09:01→22:00)
[2021-12-02] MEDS: amLODIPine 10 MG TABLET PEG SCH (09:01)
[2021-12-02] MEDS: METOCLOPRAMIDE 10 MG/10 ML UDCUP PEG SCH ×3 (13:50→21:59)
[2021-12-02] MEDS: HEPARIN 5,000 UNIT/1 ML VIAL SUBCUT SCH ×2 (13:50→21:59)
[2021-12-02] MEDS: MIRTAZAPINE 15 MG TABLET PO SCH (22:00)
[2021-12-03] MEDS: ALBUTEROL/IPRATROPIUM 3 ML NEB RESP TX SCH ×4 (00:35→19:20)
[2021-12-03] MEDS: LEVOTHYROXINE 100 MCG TABLET PO SCH (05:27)
[2021-12-03] MEDS: DORNASE ALFA 2.5 MG/2.5 ML VIAL RESP TX SCH (07:38)
[2021-12-03] MEDS: BISACODYL 5 MG TABLET PO PRN (08:30)
[2021-12-03] MEDS: ISOSORBIDE DINITRATE 10 MG TABLET PO SCH ×3 (08:30→22:03)
[2021-12-03] MEDS: METOPROLOL TARTRATE 25 MG TABLET PO SCH ×2 (08:30→22:03)
[2021-12-03] MEDS: GABAPENTIN 50 MG/ML 30 ML/BOTTLE PO SCH (08:30)
[2021-12-03] MEDS: buPROPion 75 MG TABLET PO SCH ×2 (08:30→22:03)
[2021-12-03] MEDS: ATORVASTATIN 40 MG TABLET PO SCH (08:30)
[2021-12-03] MEDS: hydrALAZINE 10 MG TABLET PO SCH ×2 (08:30→22:03)
[2021-12-03] MEDS: POLYETHYLENE GLYCOL POWDER 17 GM PACK PO PRN (08:30)
[2021-12-03] MEDS: FAMOTIDINE 20 MG TABLET PEG SCH (08:30)
[2021-12-03] MEDS: BENZONATATE 100 MG CAPSULE PO SCH ×3 (08:30→22:03)
[2021-12-03] MEDS: AMIODARONE 200 MG TABLET PO SCH (08:30)
[2021-12-03] MEDS: METOCLOPRAMIDE 10 MG/10 ML UDCUP PEG SCH ×4 (08:30→22:02)
[2021-12-03] MEDS: CHOLECALCIFEROL 1,000 UNIT TABLET PO SCH (08:30)
[2021-12-03] MEDS: amLODIPine 10 MG TABLET PEG SCH (08:30)
[2021-12-03] MEDS: HEPARIN 5,000 UNIT/1 ML VIAL SUBCUT SCH ×2 (08:30→22:04)
[2021-12-03] MEDS: MENTHOL/ZINC OXIDE OINT 71 GM JAR TOP SCH ×2 (09:00→22:04)
[2021-12-03] MEDS: MEGESTROL 40 MG TABLET PO SCH ×2 (17:50→22:02)
[2021-12-03] MEDS: MIRTAZAPINE 15 MG TABLET PO SCH (22:04)
[2021-12-04] MEDS: ALBUTEROL/IPRATROPIUM 3 ML NEB RESP TX SCH ×4 (00:10→19:51)
[2021-12-04] MEDS: LEVOTHYROXINE 100 MCG TABLET PO SCH (05:24)
[2021-12-04 05:25] LABS: Basophils # 0.1 10*3/uL (0.0-0.2); Basophils % 0.5 % (0.0-0.8); Eosinophils # 0.1 10*3/uL (0.0-0.87); Eosinophils % 0.9 % (0.00-10.9); Hematocrit 33.2 VOL% (35.7-47.0); Hemoglobin 9.9 GM/DL (12.0-16.0); Immature Granulocytes % 5.2 %; Immature Granulocytes Absolute 0.73 #; Lymphocytes # 2.2 10*3/uL (1.4-4.0); Lymphocytes % 15.5 % (21.3-54.2); Mean Corpuscular HGB Conc 29.8 GM/DL (32-36); Mean Corpuscular Volume 99.4 FL (87-102); Mean Platelet Volume 9.1 FL (9.6-12.0); Monocytes % 11.5 % (1.7-12.7); Neutrophils % 66.4 % (38.7-73.9); Platelet Count 319 T/CUMM (130-400); Red Blood Count 3.34 MC/CUMM (3.8-5.5); Red Cell Distribution Width 14.5 % (9.3-17.3); White Blood Count 13.9 T/CUMM (4-12)
[2021-12-04 05:42] LABS: Calcium 8.6 MG/DL (8.5-10.1); Osmolality,Calculated 281.1 MOS/KG (273-304); Potassium 3.8 MMOL/L (3.5-5.1)
[2021-12-04 06:08] LABS: Anisocytosis 1+; Band Neutrophils 9 % (0-10); Eosinophils 3 % (0-10); Lymphocytes 26 % (20-55); Metamyelocytes 1 %; Platelet Estimate Normal; Segmented Neutrophils 53 % (50-85); Total Cells Counted 100
[2021-12-04 06:09] LABS: Atypical Lymphocytes Few; Macrocytosis Slight; Tear Drop Cells Few
[2021-12-04] MEDS: METOCLOPRAMIDE 10 MG/10 ML UDCUP PEG SCH ×4 (09:24→21:19)
[2021-12-04] MEDS: HEPARIN 5,000 UNIT/1 ML VIAL SUBCUT SCH ×2 (09:24→21:18)
[2021-12-04] MEDS: CHOLECALCIFEROL 1,000 UNIT TABLET PO SCH (09:25)
[2021-12-04] MEDS: ISOSORBIDE DINITRATE 10 MG TABLET PO SCH ×3 (09:25→21:20)
[2021-12-04] MEDS: FAMOTIDINE 20 MG TABLET PEG SCH (09:25)
[2021-12-04] MEDS: METOPROLOL TARTRATE 25 MG TABLET PO SCH ×2 (09:25→21:19)
[2021-12-04] MEDS: hydrALAZINE 10 MG TABLET PO SCH ×2 (09:25→21:19)
[2021-12-04] MEDS: amLODIPine 10 MG TABLET PEG SCH (09:25)
[2021-12-04] MEDS: ATORVASTATIN 40 MG TABLET PO SCH (09:26)
[2021-12-04] MEDS: MEGESTROL 40 MG TABLET PO SCH ×2 (09:26→21:20)
[2021-12-04] MEDS: BENZONATATE 100 MG CAPSULE PO SCH ×3 (09:26→21:19)
[2021-12-04] MEDS: buPROPion 75 MG TABLET PO SCH ×2 (09:26→21:19)
[2021-12-04] MEDS: AMIODARONE 200 MG TABLET PO SCH (09:26)
[2021-12-04] MEDS: MENTHOL/ZINC OXIDE OINT 71 GM JAR TOP SCH ×2 (13:48→21:20)
[2021-12-04] MEDS: GABAPENTIN 50 MG/ML 30 ML/BOTTLE PO SCH (13:49)
[2021-12-04] MEDS: POLYETHYLENE GLYCOL POWDER 17 GM PACK PO PRN (21:19)
[2021-12-04] MEDS: ACETAMINOPHEN 325 MG TABLET PO PRN (21:19)
[2021-12-04] MEDS: MIRTAZAPINE 15 MG TABLET PO SCH (21:20)
[2021-12-05] MEDS: ALBUTEROL/IPRATROPIUM 3 ML NEB RESP TX SCH ×3 (02:29→19:24)
[2021-12-05] MEDS: LEVOTHYROXINE 100 MCG TABLET PO SCH (05:45)
[2021-12-05] MEDS ORDERED: EPOETIN ALFA-EPBX 3,000 UNIT/ML VIAL IV PRN (08:31)
[2021-12-05] MEDS: BENZONATATE 100 MG CAPSULE PO SCH ×3 (09:52→21:12)
[2021-12-05] MEDS: AMIODARONE 200 MG TABLET PO SCH (09:52)
[2021-12-05] MEDS: MEGESTROL 40 MG TABLET PO SCH ×2 (09:52→21:12)
[2021-12-05] MEDS: MENTHOL/ZINC OXIDE OINT 71 GM JAR TOP SCH ×2 (09:52→21:11)
[2021-12-05] MEDS: ISOSORBIDE DINITRATE 10 MG TABLET PO SCH ×3 (09:52→21:11)
[2021-12-05] MEDS: METOCLOPRAMIDE 10 MG/10 ML UDCUP PEG SCH ×4 (09:52→21:11)
[2021-12-05] MEDS: METOPROLOL TARTRATE 25 MG TABLET PO SCH ×2 (09:52→21:11)
[2021-12-05] MEDS: amLODIPine 10 MG TABLET PEG SCH (09:52)
[2021-12-05] MEDS: POLYETHYLENE GLYCOL POWDER 17 GM PACK PO PRN (09:52)
[2021-12-05] MEDS: FAMOTIDINE 20 MG TABLET PEG SCH (09:52)
[2021-12-05] MEDS: buPROPion 75 MG TABLET PO SCH ×2 (09:52→21:11)
[2021-12-05] MEDS: ATORVASTATIN 40 MG TABLET PO SCH (09:52)
[2021-12-05] MEDS: CHOLECALCIFEROL 1,000 UNIT TABLET PO SCH (09:52)
[2021-12-05] MEDS: HEPARIN 5,000 UNIT/1 ML VIAL SUBCUT SCH ×2 (09:52→21:13)
[2021-12-05] MEDS: BISACODYL 5 MG TABLET PO PRN (09:52)
[2021-12-05] MEDS: hydrALAZINE 10 MG TABLET PO SCH ×2 (09:52→21:11)
[2021-12-05] MEDS: GABAPENTIN 50 MG/ML 30 ML/BOTTLE PO SCH (13:28)
[2021-12-05] MEDS: ACETAMINOPHEN 325 MG TABLET PO PRN (21:11)
[2021-12-05] MEDS: MIRTAZAPINE 15 MG TABLET PO SCH (21:12)
[2021-12-06] MEDS: ALBUTEROL/IPRATROPIUM 3 ML NEB RESP TX SCH ×5 (01:32→19:04)
[2021-12-06] MEDS: LEVOTHYROXINE 100 MCG TABLET PO SCH (05:20)
[2021-12-06] MEDS: ATORVASTATIN 40 MG TABLET PO SCH (12:54)
[2021-12-06] MEDS: hydrALAZINE 10 MG TABLET PO SCH ×2 (12:55→21:30)
[2021-12-06] MEDS: BENZONATATE 100 MG CAPSULE PO SCH ×3 (12:55→21:30)
[2021-12-06] MEDS: AMIODARONE 200 MG TABLET PO SCH (12:55)
[2021-12-06] MEDS: amLODIPine 10 MG TABLET PEG SCH (12:55)
[2021-12-06] MEDS: CHOLECALCIFEROL 1,000 UNIT TABLET PO SCH (12:56)
[2021-12-06] MEDS: FAMOTIDINE 20 MG TABLET PEG SCH (12:56)
[2021-12-06] MEDS: ISOSORBIDE DINITRATE 10 MG TABLET PO SCH ×3 (12:56→21:30)
[2021-12-06] MEDS: buPROPion 75 MG TABLET PO SCH ×2 (12:56→21:31)
[2021-12-06] MEDS: METOCLOPRAMIDE 10 MG/10 ML UDCUP PEG SCH ×4 (13:00→21:30)
[2021-12-06] MEDS: MEGESTROL 40 MG TABLET PO SCH ×2 (13:02→21:31)
[2021-12-06] MEDS: MENTHOL/ZINC OXIDE OINT 71 GM JAR TOP SCH ×2 (13:03→21:29)
[2021-12-06] MEDS: GABAPENTIN 50 MG/ML 30 ML/BOTTLE PO SCH (13:03)
[2021-12-06] MEDS: HEPARIN 5,000 UNIT/1 ML VIAL SUBCUT SCH ×2 (13:03→21:29)
[2021-12-06] MEDS: METOPROLOL TARTRATE 25 MG TABLET PO SCH ×2 (13:04→21:30)
[2021-12-06] MEDS: MIRTAZAPINE 15 MG TABLET PO SCH (21:30)
[2021-12-06] MEDS: ACETAMINOPHEN 325 MG TABLET PO PRN (21:31)
[2021-12-07] MEDS: ALBUTEROL/IPRATROPIUM 3 ML NEB RESP TX SCH ×4 (00:01→19:03)
[2021-12-07] MEDS: LEVOTHYROXINE 100 MCG TABLET PO SCH (05:28)
[2021-12-07] MEDS: FAMOTIDINE 20 MG TABLET PEG SCH (09:39)
[2021-12-07] MEDS: buPROPion 75 MG TABLET PO SCH ×2 (09:39→21:04)
[2021-12-07] MEDS: ATORVASTATIN 40 MG TABLET PO SCH (09:40)
[2021-12-07] MEDS: BENZONATATE 100 MG CAPSULE PO SCH ×3 (09:40→21:04)
[2021-12-07] MEDS: ISOSORBIDE DINITRATE 10 MG TABLET PO SCH ×3 (09:40→21:03)
[2021-12-07] MEDS: amLODIPine 10 MG TABLET PEG SCH (09:40)
[2021-12-07] MEDS: AMIODARONE 200 MG TABLET PO SCH (09:40)
[2021-12-07] MEDS: CHOLECALCIFEROL 1,000 UNIT TABLET PO SCH (09:40)
[2021-12-07] MEDS: METOPROLOL TARTRATE 25 MG TABLET PO SCH ×2 (09:40→21:04)
[2021-12-07] MEDS: MEGESTROL 40 MG TABLET PO SCH ×2 (09:40→21:03)
[2021-12-07] MEDS: hydrALAZINE 10 MG TABLET PO SCH ×2 (09:40→21:04)
[2021-12-07] MEDS: GABAPENTIN 50 MG/ML 30 ML/BOTTLE PO SCH (09:41)
[2021-12-07] MEDS: MENTHOL/ZINC OXIDE OINT 71 GM JAR TOP SCH ×2 (09:41→21:05)
[2021-12-07] MEDS: METOCLOPRAMIDE 10 MG/10 ML UDCUP PEG SCH ×4 (09:41→21:02)
[2021-12-07] MEDS: HEPARIN 5,000 UNIT/1 ML VIAL SUBCUT SCH ×2 (09:41→21:05)
[2021-12-07] MEDS: MIRTAZAPINE 15 MG TABLET PO SCH (21:03)
[2021-12-08] MEDS: ALBUTEROL/IPRATROPIUM 3 ML NEB RESP TX SCH ×4 (00:26→19:12)
[2021-12-08] MEDS: LEVOTHYROXINE 100 MCG TABLET PO SCH (05:26)
[2021-12-08] MEDS: buPROPion 75 MG TABLET PO SCH ×2 (08:41→21:07)
[2021-12-08] MEDS: amLODIPine 10 MG TABLET PEG SCH (08:41)
[2021-12-08] MEDS: METOCLOPRAMIDE 10 MG/10 ML UDCUP PEG SCH ×4 (08:41→21:09)
[2021-12-08] MEDS: ISOSORBIDE DINITRATE 10 MG TABLET PO SCH ×3 (08:41→21:09)
[2021-12-08] MEDS: FAMOTIDINE 20 MG TABLET PEG SCH (08:41)
[2021-12-08] MEDS: AMIODARONE 200 MG TABLET PO SCH (08:42)
[2021-12-08] MEDS: ATORVASTATIN 40 MG TABLET PO SCH (08:42)
[2021-12-08] MEDS: MENTHOL/ZINC OXIDE OINT 71 GM JAR TOP SCH ×2 (08:42→21:09)
[2021-12-08] MEDS: MEGESTROL 40 MG TABLET PO SCH ×2 (08:42→21:50)
[2021-12-08] MEDS: CHOLECALCIFEROL 1,000 UNIT TABLET PO SCH (08:42)
[2021-12-08] MEDS: BENZONATATE 100 MG CAPSULE PO SCH ×3 (08:42→21:09)
[2021-12-08] MEDS: hydrALAZINE 10 MG TABLET PO SCH ×2 (08:42→21:09)
[2021-12-08] MEDS: METOPROLOL TARTRATE 25 MG TABLET PO SCH ×2 (08:42→21:08)
[2021-12-08] MEDS: GABAPENTIN 50 MG/ML 30 ML/BOTTLE PO SCH (08:43)
[2021-12-08] MEDS: HEPARIN 5,000 UNIT/1 ML VIAL SUBCUT SCH ×2 (08:43→21:11)
[2021-12-08] MEDS: DOCUSATE SODIUM 100 MG CAPSULE PO SCH ×2 (10:49→21:08)
[2021-12-08] MEDS: POLYETHYLENE GLYCOL POWDER 17 GM PACK PO SCH (10:49)
[2021-12-08] MEDS: ONDANSETRON 4 MG/2 ML VIAL IV PRN (15:01)
[2021-12-08] MEDS: MIRTAZAPINE 15 MG TABLET PO SCH (21:08)
[2021-12-09] MEDS: ALBUTEROL/IPRATROPIUM 3 ML NEB RESP TX SCH ×4 (00:19→19:44)
[2021-12-09] MEDS: LEVOTHYROXINE 100 MCG TABLET PO SCH (05:30)
[2021-12-09] MEDS: ONDANSETRON 4 MG/2 ML VIAL IV PRN (06:20)
[2021-12-09] MEDS: METOCLOPRAMIDE 10 MG/10 ML UDCUP PEG SCH ×4 (10:20→21:12)
[2021-12-09] MEDS: ISOSORBIDE DINITRATE 10 MG TABLET PO SCH ×3 (10:20→21:11)
[2021-12-09] MEDS: BENZONATATE 100 MG CAPSULE PO SCH ×3 (10:21→21:12)
[2021-12-09] MEDS: GABAPENTIN 50 MG/ML 30 ML/BOTTLE PO SCH (12:25)
[2021-12-09] MEDS: ATORVASTATIN 40 MG TABLET PO SCH (12:26)
[2021-12-09] MEDS: POLYETHYLENE GLYCOL POWDER 17 GM PACK PO SCH (12:26)
[2021-12-09] MEDS: AMIODARONE 200 MG TABLET PO SCH (12:26)
[2021-12-09] MEDS: MEGESTROL 40 MG TABLET PO SCH ×2 (12:26→21:10)
[2021-12-09] MEDS: HEPARIN 5,000 UNIT/1 ML VIAL SUBCUT SCH ×2 (12:26→21:15)
[2021-12-09] MEDS: CHOLECALCIFEROL 1,000 UNIT TABLET PO SCH (12:26)
[2021-12-09] MEDS: hydrALAZINE 10 MG TABLET PO SCH ×2 (12:27→21:11)
[2021-12-09] MEDS: FAMOTIDINE 20 MG TABLET PEG SCH (12:27)
[2021-12-09] MEDS: amLODIPine 10 MG TABLET PEG SCH (12:27)
[2021-12-09] MEDS: buPROPion 75 MG TABLET PO SCH ×2 (12:28→21:12)
[2021-12-09] MEDS: DOCUSATE SODIUM 100 MG CAPSULE PO SCH ×2 (12:28→21:14)
[2021-12-09] MEDS: METOPROLOL TARTRATE 25 MG TABLET PO SCH ×2 (12:28→21:11)
[2021-12-09] MEDS: MENTHOL/ZINC OXIDE OINT 71 GM JAR TOP SCH ×2 (15:52→22:15)
[2021-12-09] MEDS: MIRTAZAPINE 15 MG TABLET PO SCH (21:11)
[2021-12-09] MEDS: ACETAMINOPHEN 325 MG TABLET PO PRN (21:12)
[2021-12-10] MEDS: ALBUTEROL/IPRATROPIUM 3 ML NEB RESP TX SCH ×4 (01:45→19:42)
[2021-12-10] MEDS: LEVOTHYROXINE 100 MCG TABLET PO SCH (05:35)
[2021-12-10] MEDS: HEPARIN 5,000 UNIT/1 ML VIAL SUBCUT SCH ×2 (09:13→20:44)
[2021-12-10] MEDS: METOCLOPRAMIDE 10 MG/10 ML UDCUP PEG SCH ×4 (09:13→20:43)
[2021-12-10] MEDS: FAMOTIDINE 20 MG TABLET PEG SCH (09:14)
[2021-12-10] MEDS: ATORVASTATIN 40 MG TABLET PO SCH (09:14)
[2021-12-10] MEDS: BENZONATATE 100 MG CAPSULE PO SCH ×3 (09:14→20:42)
[2021-12-10] MEDS: METOPROLOL TARTRATE 25 MG TABLET PO SCH ×2 (09:14→20:43)
[2021-12-10] MEDS: MEGESTROL 40 MG TABLET PO SCH ×2 (09:14→20:43)
[2021-12-10] MEDS: AMIODARONE 200 MG TABLET PO SCH (09:14)
[2021-12-10] MEDS: hydrALAZINE 10 MG TABLET PO SCH ×2 (09:15→20:43)
[2021-12-10] MEDS: amLODIPine 10 MG TABLET PEG SCH (09:16)
[2021-12-10] MEDS: POLYETHYLENE GLYCOL POWDER 17 GM PACK PO SCH (09:16)
[2021-12-10] MEDS: CHOLECALCIFEROL 1,000 UNIT TABLET PO SCH (09:17)
[2021-12-10] MEDS: buPROPion 75 MG TABLET PO SCH ×2 (09:17→20:43)
[2021-12-10] MEDS: DOCUSATE SODIUM 100 MG CAPSULE PO SCH ×2 (09:17→20:43)
[2021-12-10] MEDS: ISOSORBIDE DINITRATE 10 MG TABLET PO SCH ×3 (09:17→20:42)
[2021-12-10] MEDS: GABAPENTIN 50 MG/ML 30 ML/BOTTLE PO SCH (09:18)
[2021-12-10] MEDS: MENTHOL/ZINC OXIDE OINT 71 GM JAR TOP SCH ×2 (09:21→20:44)
[2021-12-10] MEDS: MIRTAZAPINE 15 MG TABLET PO SCH (20:43)
[2021-12-10] MEDS: ONDANSETRON 4 MG/2 ML VIAL IV PRN (20:53)
[2021-12-11] MEDS: ALBUTEROL/IPRATROPIUM 3 ML NEB RESP TX SCH ×4 (00:09→19:24)
[2021-12-11] MEDS: LEVOTHYROXINE 100 MCG TABLET PO SCH (05:02)
[2021-12-11] MEDS: HEPARIN 5,000 UNIT/1 ML VIAL SUBCUT SCH ×2 (08:39→21:01)
[2021-12-11] MEDS: FAMOTIDINE 20 MG TABLET PEG SCH (08:39)
[2021-12-11] MEDS: ISOSORBIDE DINITRATE 10 MG TABLET PO SCH ×3 (08:39→21:00)
[2021-12-11] MEDS: hydrALAZINE 10 MG TABLET PO SCH ×2 (08:40→20:59)
[2021-12-11] MEDS: METOCLOPRAMIDE 10 MG/10 ML UDCUP PEG SCH ×4 (08:40→21:00)
[2021-12-11] MEDS: METOPROLOL TARTRATE 25 MG TABLET PO SCH ×2 (08:40→20:59)
[2021-12-11] MEDS: buPROPion 75 MG TABLET PO SCH ×2 (08:40→21:01)
[2021-12-11] MEDS: DOCUSATE SODIUM 100 MG CAPSULE PO SCH ×2 (08:40→21:00)
[2021-12-11] MEDS: AMIODARONE 200 MG TABLET PO SCH (08:40)
[2021-12-11] MEDS: BENZONATATE 100 MG CAPSULE PO SCH ×3 (08:40→21:00)
[2021-12-11] MEDS: ATORVASTATIN 40 MG TABLET PO SCH (08:40)
[2021-12-11] MEDS: MEGESTROL 40 MG TABLET PO SCH ×2 (08:40→20:59)
[2021-12-11] MEDS: CHOLECALCIFEROL 1,000 UNIT TABLET PO SCH (08:40)
[2021-12-11] MEDS: amLODIPine 10 MG TABLET PEG SCH (08:40)
[2021-12-11] MEDS: MENTHOL/ZINC OXIDE OINT 71 GM JAR TOP SCH ×2 (08:41→21:01)
[2021-12-11] MEDS: POLYETHYLENE GLYCOL POWDER 17 GM PACK PO SCH (08:41)
[2021-12-11] MEDS: GABAPENTIN 50 MG/ML 30 ML/BOTTLE PO SCH (08:42)
[2021-12-11] MEDS: ACETAMINOPHEN 325 MG TABLET PO PRN ×2 (17:40→21:05)
[2021-12-11] MEDS: MIRTAZAPINE 15 MG TABLET PO SCH (20:59)
[2021-12-12] MEDS: ALBUTEROL/IPRATROPIUM 3 ML NEB RESP TX SCH ×4 (00:16→19:33)
[2021-12-12] MEDS: LEVOTHYROXINE 100 MCG TABLET PO SCH (05:28)
[2021-12-12] MEDS: buPROPion 75 MG TABLET PO SCH ×2 (09:33→22:23)
[2021-12-12] MEDS: HEPARIN 5,000 UNIT/1 ML VIAL SUBCUT SCH ×2 (09:33→22:24)
[2021-12-12] MEDS: ATORVASTATIN 40 MG TABLET PO SCH (09:33)
[2021-12-12] MEDS: FAMOTIDINE 20 MG TABLET PEG SCH (09:33)
[2021-12-12] MEDS: hydrALAZINE 10 MG TABLET PO SCH ×2 (09:33→22:22)
[2021-12-12] MEDS: METOCLOPRAMIDE 10 MG/10 ML UDCUP PEG SCH ×4 (09:33→22:35)
[2021-12-12] MEDS: ISOSORBIDE DINITRATE 10 MG TABLET PO SCH ×3 (09:34→22:23)
[2021-12-12] MEDS: DOCUSATE SODIUM 100 MG CAPSULE PO SCH ×2 (09:34→22:22)
[2021-12-12] MEDS: BENZONATATE 100 MG CAPSULE PO SCH ×3 (09:34→22:22)
[2021-12-12] MEDS: amLODIPine 10 MG TABLET PEG SCH (09:34)
[2021-12-12] MEDS: CHOLECALCIFEROL 1,000 UNIT TABLET PO SCH (09:34)
[2021-12-12] MEDS: METOPROLOL TARTRATE 25 MG TABLET PO SCH ×2 (09:34→22:24)
[2021-12-12] MEDS: MEGESTROL 40 MG TABLET PO SCH ×2 (09:34→22:23)
[2021-12-12] MEDS: MENTHOL/ZINC OXIDE OINT 71 GM JAR TOP SCH ×2 (09:34→22:24)
[2021-12-12] MEDS: AMIODARONE 200 MG TABLET PO SCH (09:34)
[2021-12-12] MEDS: POLYETHYLENE GLYCOL POWDER 17 GM PACK PO SCH (09:39)
[2021-12-12] MEDS: GABAPENTIN 50 MG/ML 30 ML/BOTTLE PO SCH (09:40)
[2021-12-12] MEDS: ACETAMINOPHEN 325 MG TABLET PO PRN (22:22)
[2021-12-12] MEDS: MIRTAZAPINE 15 MG TABLET PO SCH (22:23)
[2021-12-13] MEDS: ALBUTEROL/IPRATROPIUM 3 ML NEB RESP TX SCH ×4 (00:45→19:35)
[2021-12-13] MEDS: LEVOTHYROXINE 100 MCG TABLET PO SCH (06:03)
[2021-12-13] MEDS: HEPARIN 5,000 UNIT/1 ML VIAL SUBCUT SCH ×2 (09:55→22:14)
[2021-12-13] MEDS: METOCLOPRAMIDE 10 MG/10 ML UDCUP PEG SCH ×4 (09:55→22:15)
[2021-12-13] MEDS: CHOLECALCIFEROL 1,000 UNIT TABLET PO SCH (14:13)
[2021-12-13] MEDS: MEGESTROL 40 MG TABLET PO SCH ×2 (14:13→22:14)
[2021-12-13] MEDS: hydrALAZINE 10 MG TABLET PO SCH ×2 (14:13→22:14)
[2021-12-13] MEDS: FAMOTIDINE 20 MG TABLET PEG SCH (14:13)
[2021-12-13] MEDS: BENZONATATE 100 MG CAPSULE PO SCH ×3 (14:14→22:14)
[2021-12-13] MEDS: ATORVASTATIN 40 MG TABLET PO SCH (14:14)
[2021-12-13] MEDS: buPROPion 75 MG TABLET PO SCH ×2 (14:14→22:14)
[2021-12-13] MEDS: AMIODARONE 200 MG TABLET PO SCH (14:14)
[2021-12-13] MEDS: DOCUSATE SODIUM 100 MG CAPSULE PO SCH ×2 (14:14→22:15)
[2021-12-13] MEDS: GABAPENTIN 50 MG/ML 30 ML/BOTTLE PO SCH ×2 (14:39→16:22)
[2021-12-13] MEDS: ISOSORBIDE DINITRATE 10 MG TABLET PO SCH ×3 (14:39→22:14)
[2021-12-13] MEDS: POLYETHYLENE GLYCOL POWDER 17 GM PACK PO SCH (14:39)
[2021-12-13] MEDS: METOPROLOL TARTRATE 25 MG TABLET PO SCH ×2 (14:39→22:13)
[2021-12-13] MEDS: amLODIPine 10 MG TABLET PEG SCH (14:40)
[2021-12-13] MEDS: MENTHOL/ZINC OXIDE OINT 71 GM JAR TOP SCH ×2 (14:47→22:15)
[2021-12-13] MEDS: ACETAMINOPHEN 325 MG TABLET PO PRN (22:13)
[2021-12-13] MEDS: MIRTAZAPINE 15 MG TABLET PO SCH (22:14)
[2021-12-14] MEDS: ALBUTEROL/IPRATROPIUM 3 ML NEB RESP TX SCH ×4 (01:35→19:25)
[2021-12-14] MEDS: LEVOTHYROXINE 100 MCG TABLET PO SCH (05:11)
[2021-12-14] MEDS: METOCLOPRAMIDE 10 MG/10 ML UDCUP PEG SCH ×2 (08:55→12:20)
[2021-12-14] MEDS: HEPARIN 5,000 UNIT/1 ML VIAL SUBCUT SCH ×2 (09:00→20:32)
[2021-12-14] MEDS: amLODIPine 10 MG TABLET PEG SCH (09:01)
[2021-12-14] MEDS: ATORVASTATIN 40 MG TABLET PO SCH (09:01)
[2021-12-14] MEDS: METOPROLOL TARTRATE 25 MG TABLET PO SCH ×2 (09:01→20:31)
[2021-12-14] MEDS: buPROPion 75 MG TABLET PO SCH ×2 (09:01→20:32)
[2021-12-14] MEDS: FAMOTIDINE 20 MG TABLET PEG SCH (09:02)
[2021-12-14] MEDS: ISOSORBIDE DINITRATE 10 MG TABLET PO SCH ×3 (09:02→20:32)
[2021-12-14] MEDS: BENZONATATE 100 MG CAPSULE PO SCH ×3 (09:02→20:33)
[2021-12-14] MEDS: hydrALAZINE 10 MG TABLET PO SCH ×2 (09:02→20:32)
[2021-12-14] MEDS: AMIODARONE 200 MG TABLET PO SCH (09:02)
[2021-12-14] MEDS: MEGESTROL 40 MG TABLET PO SCH ×2 (09:02→20:32)
[2021-12-14] MEDS: DOCUSATE SODIUM 100 MG CAPSULE PO SCH ×2 (09:02→20:33)
[2021-12-14] MEDS: CHOLECALCIFEROL 1,000 UNIT TABLET PO SCH (09:02)
[2021-12-14] MEDS: MENTHOL/ZINC OXIDE OINT 71 GM JAR TOP SCH ×2 (09:03→20:37)
[2021-12-14] MEDS: GABAPENTIN 50 MG/ML 30 ML/BOTTLE PO SCH (09:09)
[2021-12-14] MEDS: POLYETHYLENE GLYCOL POWDER 17 GM PACK PO SCH (09:11)
[2021-12-14] MEDS: METOCLOPRAMIDE 5 MG TABLET PO SCH ×2 (16:08→20:33)
[2021-12-14] MEDS: MIRTAZAPINE 15 MG TABLET PO SCH (20:32)
[2021-12-15] MEDS: ALBUTEROL/IPRATROPIUM 3 ML NEB RESP TX SCH ×4 (01:50→19:15)
[2021-12-15] MEDS: LEVOTHYROXINE 100 MCG TABLET PO SCH (05:26)
[2021-12-15 07:52] LABS: Basophils % 0.6 % (0.0-0.8); Eosinophils # 0.2 10*3/uL (0.0-0.87); Eosinophils % 3.7 % (0.00-10.9); Hematocrit 36.1 VOL% (35.7-47.0); Hemoglobin 10.9 GM/DL (12.0-16.0); Immature Granulocytes % 1.1 %; Immature Granulocytes Absolute 0.07 #; Lymphocytes % 15.3 % (21.3-54.2); Mean Corpuscular HGB Conc 30.2 GM/DL (32-36); Mean Corpuscular Volume 95.8 FL (87-102); Mean Platelet Volume 9.4 FL (9.6-12.0); Monocytes % 9.6 % (1.7-12.7); Neutrophils % 69.7 % (38.7-73.9); Platelet Count 300 T/CUMM (130-400); Red Blood Count 3.77 MC/CUMM (3.8-5.5); White Blood Count 6.5 T/CUMM (4-12)
[2021-12-15 08:09] LABS: Parathyroid Hormone Intact 80.7 PG/ML (18.4-80.1)
[2021-12-15 08:17] LABS: Calcium 9.3 MG/DL (8.5-10.1); Osmolality,Calculated 284.2 MOS/KG (273-304); Potassium 5.9 MMOL/L (3.5-5.1)
[2021-12-15] MEDS: METOCLOPRAMIDE 5 MG TABLET PO SCH ×4 (11:06→21:15)
[2021-12-15] MEDS: CHOLECALCIFEROL 1,000 UNIT TABLET PO SCH (11:07)
[2021-12-15] MEDS: hydrALAZINE 10 MG TABLET PO SCH ×2 (11:07→21:14)
[2021-12-15] MEDS: buPROPion 75 MG TABLET PO SCH ×2 (11:07→21:14)
[2021-12-15] MEDS: HEPARIN 5,000 UNIT/1 ML VIAL SUBCUT SCH ×2 (11:07→21:14)
[2021-12-15] MEDS: MEGESTROL 40 MG TABLET PO SCH ×2 (11:08→21:14)
[2021-12-15] MEDS: BENZONATATE 100 MG CAPSULE PO SCH ×3 (11:08→21:14)
[2021-12-15] MEDS: ISOSORBIDE DINITRATE 10 MG TABLET PO SCH ×3 (11:08→21:14)
[2021-12-15] MEDS: amLODIPine 10 MG TABLET PEG SCH (11:08)
[2021-12-15] MEDS: FAMOTIDINE 20 MG TABLET PEG SCH (11:08)
[2021-12-15] MEDS: DOCUSATE SODIUM 100 MG CAPSULE PO SCH ×2 (11:08→21:14)
[2021-12-15] MEDS: METOPROLOL TARTRATE 25 MG TABLET PO SCH ×2 (11:09→21:14)
[2021-12-15] MEDS: ATORVASTATIN 40 MG TABLET PO SCH (11:09)
[2021-12-15] MEDS: AMIODARONE 200 MG TABLET PO SCH (11:09)
[2021-12-15] MEDS: POLYETHYLENE GLYCOL POWDER 17 GM PACK PO SCH (11:33)
[2021-12-15] MEDS: MENTHOL/ZINC OXIDE OINT 71 GM JAR TOP SCH ×2 (12:23→21:15)
[2021-12-15] MEDS: GABAPENTIN 50 MG/ML 30 ML/BOTTLE PO SCH (12:23)
[2021-12-15] MEDS: MIRTAZAPINE 15 MG TABLET PO SCH (21:14)
[2021-12-16] MEDS: ALBUTEROL/IPRATROPIUM 3 ML NEB RESP TX SCH ×4 (01:45→19:28)
[2021-12-16] MEDS: LEVOTHYROXINE 100 MCG TABLET PO SCH (07:03)
[2021-12-16] MEDS: METOCLOPRAMIDE 5 MG TABLET PO SCH ×4 (14:03→21:52)
[2021-12-16] MEDS: BENZONATATE 100 MG CAPSULE PO SCH ×2 (14:04→14:12)
[2021-12-16] MEDS: ISOSORBIDE DINITRATE 10 MG TABLET PO SCH ×3 (14:04→21:54)
[2021-12-16] MEDS: FAMOTIDINE 20 MG TABLET PEG SCH (14:09)
[2021-12-16] MEDS: buPROPion 75 MG TABLET PO SCH ×2 (14:09→21:52)
[2021-12-16] MEDS: ATORVASTATIN 40 MG TABLET PO SCH (14:10)
[2021-12-16] MEDS: AMIODARONE 200 MG TABLET PO SCH (14:10)
[2021-12-16] MEDS: hydrALAZINE 10 MG TABLET PO SCH ×2 (14:11→21:53)
[2021-12-16] MEDS: MEGESTROL 40 MG TABLET PO SCH ×2 (14:11→21:52)
[2021-12-16] MEDS: HEPARIN 5,000 UNIT/1 ML VIAL SUBCUT SCH ×2 (14:12→21:55)
[2021-12-16] MEDS: CHOLECALCIFEROL 1,000 UNIT TABLET PO SCH (14:12)
[2021-12-16] MEDS: METOPROLOL TARTRATE 25 MG TABLET PO SCH ×2 (14:12→21:54)
[2021-12-16] MEDS: DOCUSATE SODIUM 100 MG CAPSULE PO SCH ×2 (14:12→21:53)
[2021-12-16] MEDS: amLODIPine 10 MG TABLET PEG SCH (14:12)
[2021-12-16] MEDS: GABAPENTIN 50 MG/ML 30 ML/BOTTLE PO SCH (14:13)
[2021-12-16] MEDS: POLYETHYLENE GLYCOL POWDER 17 GM PACK PO SCH ×2 (14:13→21:55)
[2021-12-16] MEDS: MENTHOL/ZINC OXIDE OINT 71 GM JAR TOP SCH ×2 (14:13→21:54)
[2021-12-16] MEDS: SEVELAMER CARBONATE 800 MG TABLET PO SCH ×2 (14:15→16:28)
[2021-12-16] MEDS ORDERED: BENZONATATE 100 MG CAPSULE PO PRN (16:51)
[2021-12-16] MEDS: MIRTAZAPINE 15 MG TABLET PO SCH (21:53)
[2021-12-17] MEDS: ALBUTEROL/IPRATROPIUM 3 ML NEB RESP TX SCH ×4 (00:25→19:34)
[2021-12-17] MEDS: LEVOTHYROXINE 100 MCG TABLET PO SCH (05:24)
[2021-12-17] MEDS: HEPARIN 5,000 UNIT/1 ML VIAL SUBCUT SCH ×2 (09:23→21:06)
[2021-12-17] MEDS: ISOSORBIDE DINITRATE 10 MG TABLET PO SCH ×3 (09:23→21:04)
[2021-12-17] MEDS: FAMOTIDINE 20 MG TABLET PEG SCH (09:24)
[2021-12-17] MEDS: AMIODARONE 200 MG TABLET PO SCH (09:24)
[2021-12-17] MEDS: hydrALAZINE 10 MG TABLET PO SCH ×2 (09:24→21:05)
[2021-12-17] MEDS: CHOLECALCIFEROL 1,000 UNIT TABLET PO SCH (09:24)
[2021-12-17] MEDS: MEGESTROL 40 MG TABLET PO SCH ×2 (09:24→21:04)
[2021-12-17] MEDS: ATORVASTATIN 40 MG TABLET PO SCH (09:25)
[2021-12-17] MEDS: buPROPion 75 MG TABLET PO SCH ×2 (09:25→21:06)
[2021-12-17] MEDS: SEVELAMER CARBONATE 800 MG TABLET PO SCH ×3 (09:25→16:12)
[2021-12-17] MEDS: METOPROLOL TARTRATE 25 MG TABLET PO SCH ×2 (09:25→21:06)
[2021-12-17] MEDS: amLODIPine 10 MG TABLET PEG SCH (09:25)
[2021-12-17] MEDS: METOCLOPRAMIDE 5 MG TABLET PO SCH ×4 (09:25→21:05)
[2021-12-17] MEDS: MENTHOL/ZINC OXIDE OINT 71 GM JAR TOP SCH ×2 (09:25→21:10)
[2021-12-17] MEDS: DOCUSATE SODIUM 100 MG CAPSULE PO SCH ×2 (09:25→21:06)
[2021-12-17] MEDS: POLYETHYLENE GLYCOL POWDER 17 GM PACK PO SCH ×2 (09:26→21:15)
[2021-12-17] MEDS: GABAPENTIN 50 MG/ML 30 ML/BOTTLE PO SCH (09:26)
[2021-12-17] MEDS: MIRTAZAPINE 15 MG TABLET PO SCH (21:05)
[2021-12-18] MEDS: ALBUTEROL/IPRATROPIUM 3 ML NEB RESP TX SCH ×4 (01:03→19:51)
[2021-12-18 05:20] LABS: Basophils % 0.5 % (0.0-0.8); Eosinophils # 0.3 10*3/uL (0.0-0.87); Eosinophils % 5.5 % (0.00-10.9); Hematocrit 32.4 VOL% (35.7-47.0); Hemoglobin 9.5 GM/DL (12.0-16.0); Immature Granulocytes % 1.1 %; Immature Granulocytes Absolute 0.06 #; Lymphocytes % 18.4 % (21.3-54.2); Mean Corpuscular HGB Conc 29.3 GM/DL (32-36); Mean Corpuscular Volume 99.1 FL (87-102); Mean Platelet Volume 9.8 FL (9.6-12.0); Monocytes % 15.1 % (1.7-12.7); Neutrophils % 59.4 % (38.7-73.9); Platelet Count 301 T/CUMM (130-400); Red Blood Count 3.27 MC/CUMM (3.8-5.5); Red Cell Distribution Width 14.1 % (9.3-17.3); White Blood Count 5.6 T/CUMM (4-12)
[2021-12-18 05:44] LABS: Calcium 8.7 MG/DL (8.5-10.1); Osmolality,Calculated 288.5 MOS/KG (273-304); Potassium 4.9 MMOL/L (3.5-5.1)
[2021-12-18] MEDS: LEVOTHYROXINE 100 MCG TABLET PO SCH (05:57)
[2021-12-18] MEDS: CHOLECALCIFEROL 1,000 UNIT TABLET PO SCH (11:38)
[2021-12-18] MEDS: FAMOTIDINE 20 MG TABLET PEG SCH (11:38)
[2021-12-18] MEDS: MEGESTROL 40 MG TABLET PO SCH ×2 (11:38→20:31)
[2021-12-18] MEDS: AMIODARONE 200 MG TABLET PO SCH (11:38)
[2021-12-18] MEDS: amLODIPine 10 MG TABLET PEG SCH (11:38)
[2021-12-18] MEDS: METOCLOPRAMIDE 5 MG TABLET PO SCH ×4 (11:39→20:31)
[2021-12-18] MEDS: MENTHOL/ZINC OXIDE OINT 71 GM JAR TOP SCH ×2 (11:39→20:32)
[2021-12-18] MEDS: SEVELAMER CARBONATE 800 MG TABLET PO SCH ×3 (11:39→16:47)
[2021-12-18] MEDS: ATORVASTATIN 40 MG TABLET PO SCH (11:39)
[2021-12-18] MEDS: buPROPion 75 MG TABLET PO SCH ×2 (11:39→20:30)
[2021-12-18] MEDS: HEPARIN 5,000 UNIT/1 ML VIAL SUBCUT SCH ×2 (11:40→20:29)
[2021-12-18] MEDS: POLYETHYLENE GLYCOL POWDER 17 GM PACK PO SCH ×2 (11:41→20:30)
[2021-12-18] MEDS: GABAPENTIN 50 MG/ML 30 ML/BOTTLE PO SCH (11:45)
[2021-12-18] MEDS: hydrALAZINE 10 MG TABLET PO SCH ×2 (15:06→20:31)
[2021-12-18] MEDS: METOPROLOL TARTRATE 25 MG TABLET PO SCH ×2 (15:06→20:31)
[2021-12-18] MEDS: ISOSORBIDE DINITRATE 10 MG TABLET PO SCH ×3 (15:06→20:31)
[2021-12-18] MEDS: DOCUSATE SODIUM 100 MG CAPSULE PO SCH ×2 (15:06→20:31)
[2021-12-18] MEDS: ACETAMINOPHEN 325 MG TABLET PO PRN (20:30)
[2021-12-18] MEDS: MIRTAZAPINE 15 MG TABLET PO SCH (20:31)
[2021-12-19] MEDS: ACETAMINOPHEN 325 MG TABLET PO PRN (00:31)
[2021-12-19] MEDS: ALBUTEROL/IPRATROPIUM 3 ML NEB RESP TX SCH ×4 (01:30→19:30)
[2021-12-19] MEDS: LEVOTHYROXINE 100 MCG TABLET PO SCH (05:42)
[2021-12-19 06:03] LABS: Calcium 8.4 MG/DL (8.5-10.1); Potassium 4.3 MMOL/L (3.5-5.1)
[2021-12-19] MEDS: METOCLOPRAMIDE 5 MG TABLET PO SCH ×4 (09:36→22:02)
[2021-12-19] MEDS: POLYETHYLENE GLYCOL POWDER 17 GM PACK PO SCH ×2 (09:38→22:04)
[2021-12-19] MEDS: ISOSORBIDE DINITRATE 10 MG TABLET PO SCH ×3 (09:39→22:02)
[2021-12-19] MEDS: MEGESTROL 40 MG TABLET PO SCH ×2 (09:40→22:03)
[2021-12-19] MEDS: FAMOTIDINE 20 MG TABLET PEG SCH (09:41)
[2021-12-19] MEDS: AMIODARONE 200 MG TABLET PO SCH (09:41)
[2021-12-19] MEDS: METOPROLOL TARTRATE 25 MG TABLET PO SCH ×2 (09:41→22:03)
[2021-12-19] MEDS: buPROPion 75 MG TABLET PO SCH ×2 (09:42→22:02)
[2021-12-19] MEDS: ATORVASTATIN 40 MG TABLET PO SCH (09:42)
[2021-12-19] MEDS: amLODIPine 10 MG TABLET PEG SCH (09:42)
[2021-12-19] MEDS: hydrALAZINE 25 MG TABLET PO SCH ×2 (09:42→22:03)
[2021-12-19] MEDS: HEPARIN 5,000 UNIT/1 ML VIAL SUBCUT SCH ×2 (09:43→22:02)
[2021-12-19] MEDS: GABAPENTIN 50 MG/ML 30 ML/BOTTLE PO SCH (09:43)
[2021-12-19] MEDS: CHOLECALCIFEROL 1,000 UNIT TABLET PO SCH (09:43)
[2021-12-19] MEDS: SEVELAMER CARBONATE 800 MG TABLET PO SCH ×3 (09:44→16:43)
[2021-12-19] MEDS: DOCUSATE SODIUM 100 MG CAPSULE PO SCH ×2 (09:44→22:04)
[2021-12-19] MEDS: MENTHOL/ZINC OXIDE OINT 71 GM JAR TOP SCH ×2 (10:21→22:04)
[2021-12-19] MEDS: MIRTAZAPINE 15 MG TABLET PO SCH (22:03)
[2021-12-20] MEDS: ALBUTEROL/IPRATROPIUM 3 ML NEB RESP TX SCH ×4 (00:45→19:28)
[2021-12-20] MEDS: LEVOTHYROXINE 100 MCG TABLET PO SCH (05:17)
[2021-12-20 06:29] LABS: Calcium 8.7 MG/DL (8.5-10.1)
[2021-12-20 09:28] LABS: Basophils % 0.5 % (0.0-0.8); Eosinophils # 0.3 10*3/uL (0.0-0.87); Hematocrit 34.5 VOL% (35.7-47.0); Hemoglobin 10.2 GM/DL (12.0-16.0); Immature Granulocytes % 0.8 %; Immature Granulocytes Absolute 0.03 #; Lymphocytes # 0.8 10*3/uL (1.4-4.0); Lymphocytes % 19.8 % (21.3-54.2); Mean Corpuscular HGB Conc 29.6 GM/DL (32-36); Mean Corpuscular Volume 99.4 FL (87-102); Mean Platelet Volume 9.1 FL (9.6-12.0); Monocytes % 13.8 % (1.7-12.7); Neutrophils % 58.1 % (38.7-73.9); Platelet Count 289 T/CUMM (130-400); Red Blood Count 3.47 MC/CUMM (3.8-5.5)
[2021-12-20] MEDS: CHOLECALCIFEROL 1,000 UNIT TABLET PO SCH (09:33)
[2021-12-20] MEDS: FAMOTIDINE 20 MG TABLET PEG SCH (09:34)
[2021-12-20] MEDS: buPROPion 75 MG TABLET PO SCH ×2 (09:34→22:03)
[2021-12-20] MEDS: SEVELAMER CARBONATE 800 MG TABLET PO SCH ×3 (09:34→17:21)
[2021-12-20] MEDS: METOCLOPRAMIDE 5 MG TABLET PO SCH ×4 (09:34→22:03)
[2021-12-20] MEDS: ATORVASTATIN 40 MG TABLET PO SCH (09:34)
[2021-12-20] MEDS: AMIODARONE 200 MG TABLET PO SCH (09:34)
[2021-12-20] MEDS: ISOSORBIDE DINITRATE 10 MG TABLET PO SCH ×3 (09:34→22:03)
[2021-12-20] MEDS: HEPARIN 5,000 UNIT/1 ML VIAL SUBCUT SCH ×2 (09:35→22:02)
[2021-12-20] MEDS: GABAPENTIN 50 MG/ML 30 ML/BOTTLE PO SCH (09:40)
[2021-12-20] MEDS: DOCUSATE SODIUM 100 MG CAPSULE PO SCH ×2 (09:43→22:16)
[2021-12-20] MEDS: POLYETHYLENE GLYCOL POWDER 17 GM PACK PO SCH ×2 (09:43→22:17)
[2021-12-20] MEDS: MENTHOL/ZINC OXIDE OINT 71 GM JAR TOP SCH ×2 (09:43→22:02)
[2021-12-20] MEDS: amLODIPine 10 MG TABLET PEG SCH (12:56)
[2021-12-20] MEDS: hydrALAZINE 25 MG TABLET PO SCH ×2 (12:56→22:03)
[2021-12-20] MEDS: METOPROLOL TARTRATE 25 MG TABLET PO SCH ×2 (12:56→22:03)
[2021-12-20] MEDS: MEGESTROL 40 MG TABLET PO SCH ×2 (12:56→22:02)
[2021-12-20 19:54] LABS: Hepatitis B Surface Ag Quant < 0.10 Index; Hepatitis B Surface Ag Result Non-Reactive (NonReactive)
[2021-12-20] MEDS: MIRTAZAPINE 15 MG TABLET PO SCH (22:02)
[2021-12-20] MEDS: ACETAMINOPHEN 325 MG TABLET PO PRN (22:06)
[2021-12-21] MEDS: ALBUTEROL/IPRATROPIUM 3 ML NEB RESP TX SCH ×4 (00:17→19:35)
[2021-12-21 05:46] LABS: Calcium 9.2 MG/DL (8.5-10.1); Osmolality,Calculated 280.7 MOS/KG (273-304); Potassium 4.7 MMOL/L (3.5-5.1)
[2021-12-21] MEDS: LEVOTHYROXINE 100 MCG TABLET PO SCH (06:10)
[2021-12-21] MEDS: SEVELAMER CARBONATE 800 MG TABLET PO SCH ×3 (09:22→17:18)
[2021-12-21] MEDS: MEGESTROL 40 MG TABLET PO SCH ×2 (09:23→22:32)
[2021-12-21] MEDS: ISOSORBIDE DINITRATE 10 MG TABLET PO SCH ×3 (09:23→22:32)
[2021-12-21] MEDS: hydrALAZINE 25 MG TABLET PO SCH ×2 (09:23→22:31)
[2021-12-21] MEDS: METOCLOPRAMIDE 5 MG TABLET PO SCH ×4 (09:23→22:30)
[2021-12-21] MEDS: buPROPion 75 MG TABLET PO SCH ×2 (09:23→22:30)
[2021-12-21] MEDS: FAMOTIDINE 20 MG TABLET PEG SCH (09:23)
[2021-12-21] MEDS: ATORVASTATIN 40 MG TABLET PO SCH (09:23)
[2021-12-21] MEDS: amLODIPine 10 MG TABLET PEG SCH (09:23)
[2021-12-21] MEDS: AMIODARONE 200 MG TABLET PO SCH (09:23)
[2021-12-21] MEDS: CHOLECALCIFEROL 1,000 UNIT TABLET PO SCH (09:23)
[2021-12-21] MEDS: METOPROLOL TARTRATE 25 MG TABLET PO SCH ×2 (09:23→22:32)
[2021-12-21] MEDS: HEPARIN 5,000 UNIT/1 ML VIAL SUBCUT SCH ×2 (09:24→22:33)
[2021-12-21] MEDS: POLYETHYLENE GLYCOL POWDER 17 GM PACK PO SCH ×2 (09:24→22:30)
[2021-12-21] MEDS: MENTHOL/ZINC OXIDE OINT 71 GM JAR TOP SCH ×2 (09:24→22:33)
[2021-12-21] MEDS: GABAPENTIN 50 MG/ML 30 ML/BOTTLE PO SCH (09:24)
[2021-12-21] MEDS: DOCUSATE SODIUM 100 MG CAPSULE PO SCH ×2 (09:24→22:33)
[2021-12-21] MEDS: MIRTAZAPINE 15 MG TABLET PO SCH (22:31)
[2021-12-22] MEDS: ALBUTEROL/IPRATROPIUM 3 ML NEB RESP TX SCH ×4 (00:06→19:27)
[2021-12-22 00:27] LABS: Hepatitis B Core IgM Quant 0.12 Index; Hepatitis B Surface Ag Quant < 0.10 Index; Hepatitis B Surface Ag Result Non-Reactive (NonReactive); Hepatitis C Virus Ab Quant > 11.00 Index; Hepatitis C Virus Ab Result Reactive (NonReactive)
[2021-12-22 05:44] LABS: Calcium 9.2 MG/DL (8.5-10.1); Osmolality,Calculated 283.8 MOS/KG (273-304)
[2021-12-22] MEDS: LEVOTHYROXINE 100 MCG TABLET PO SCH (05:52)
[2021-12-22] MEDS: METOCLOPRAMIDE 5 MG TABLET PO SCH ×4 (09:02→22:49)
[2021-12-22] MEDS: buPROPion 75 MG TABLET PO SCH ×2 (09:05→22:49)
[2021-12-22] MEDS: ATORVASTATIN 40 MG TABLET PO SCH (09:05)
[2021-12-22] MEDS: FAMOTIDINE 20 MG TABLET PEG SCH (09:05)
[2021-12-22] MEDS: AMIODARONE 200 MG TABLET PO SCH (09:06)
[2021-12-22] MEDS: METOPROLOL TARTRATE 25 MG TABLET PO SCH ×2 (09:06→22:48)
[2021-12-22] MEDS: CHOLECALCIFEROL 1,000 UNIT TABLET PO SCH (09:06)
[2021-12-22] MEDS: HEPARIN 5,000 UNIT/1 ML VIAL SUBCUT SCH ×2 (09:06→22:52)
[2021-12-22] MEDS: MENTHOL/ZINC OXIDE OINT 71 GM JAR TOP SCH ×2 (09:07→22:54)
[2021-12-22] MEDS: amLODIPine 10 MG TABLET PEG SCH (09:07)
[2021-12-22] MEDS: hydrALAZINE 25 MG TABLET PO SCH ×2 (09:07→22:48)
[2021-12-22] MEDS: ISOSORBIDE DINITRATE 10 MG TABLET PO SCH ×3 (09:07→22:49)
[2021-12-22] MEDS: SEVELAMER CARBONATE 800 MG TABLET PO SCH ×3 (09:07→17:01)
[2021-12-22] MEDS: MEGESTROL 40 MG TABLET PO SCH ×2 (09:08→22:48)
[2021-12-22] MEDS: GABAPENTIN 50 MG/ML 30 ML/BOTTLE PO SCH (09:12)
[2021-12-22] MEDS: DOCUSATE SODIUM 100 MG CAPSULE PO SCH ×2 (09:13→22:53)
[2021-12-22] MEDS: POLYETHYLENE GLYCOL POWDER 17 GM PACK PO SCH ×2 (09:13→22:54)
[2021-12-22] MEDS: MIRTAZAPINE 15 MG TABLET PO SCH (22:49)
[2021-12-22] MEDS: ACETAMINOPHEN 325 MG TABLET PO PRN (22:53)
[2021-12-23] MEDS: ALBUTEROL/IPRATROPIUM 3 ML NEB RESP TX SCH ×4 (00:15→19:10)
[2021-12-23 05:47] LABS: Calcium 8.9 MG/DL (8.5-10.1); Potassium 5.8 MMOL/L (3.5-5.1)
[2021-12-23] MEDS: LEVOTHYROXINE 100 MCG TABLET PO SCH (05:59)
[2021-12-23] MEDS: POLYETHYLENE GLYCOL POWDER 17 GM PACK PO SCH ×2 (09:12→21:46)
[2021-12-23] MEDS: METOCLOPRAMIDE 5 MG TABLET PO SCH ×4 (09:12→21:45)
[2021-12-23] MEDS: buPROPion 75 MG TABLET PO SCH ×2 (09:12→21:45)
[2021-12-23] MEDS: SEVELAMER CARBONATE 800 MG TABLET PO SCH ×3 (09:13→17:07)
[2021-12-23] MEDS: ATORVASTATIN 40 MG TABLET PO SCH (09:13)
[2021-12-23] MEDS: METOPROLOL TARTRATE 25 MG TABLET PO SCH ×2 (09:13→21:45)
[2021-12-23] MEDS: FAMOTIDINE 20 MG TABLET PEG SCH (09:13)
[2021-12-23] MEDS: CHOLECALCIFEROL 1,000 UNIT TABLET PO SCH (09:13)
[2021-12-23] MEDS: ISOSORBIDE DINITRATE 10 MG TABLET PO SCH ×3 (09:14→21:46)
[2021-12-23] MEDS: DOCUSATE SODIUM 100 MG CAPSULE PO SCH ×2 (09:14→21:45)
[2021-12-23] MEDS: amLODIPine 10 MG TABLET PEG SCH (09:14)
[2021-12-23] MEDS: MENTHOL/ZINC OXIDE OINT 71 GM JAR TOP SCH ×2 (09:15→21:52)
[2021-12-23] MEDS: HEPARIN 5,000 UNIT/1 ML VIAL SUBCUT SCH ×2 (09:15→21:46)
[2021-12-23] MEDS: hydrALAZINE 25 MG TABLET PO SCH ×2 (09:16→21:45)
[2021-12-23] MEDS: MEGESTROL 40 MG TABLET PO SCH ×2 (09:17→21:45)
[2021-12-23] MEDS: GABAPENTIN 50 MG/ML 30 ML/BOTTLE PO SCH (09:22)
[2021-12-23] MEDS: AMIODARONE 200 MG TABLET PO SCH (09:24)
[2021-12-23] MEDS: MIRTAZAPINE 15 MG TABLET PO SCH (21:46)
[2021-12-24] MEDS: ALBUTEROL/IPRATROPIUM 3 ML NEB RESP TX SCH ×4 (00:05→19:40)
[2021-12-24] MEDS: LEVOTHYROXINE 100 MCG TABLET PO SCH (05:17)
[2021-12-24 05:57] LABS: Basophils % 0.4 % (0.0-0.8); Eosinophils # 0.3 10*3/uL (0.0-0.87); Eosinophils % 5.9 % (0.00-10.9); Hematocrit 32.5 VOL% (35.7-47.0); Hemoglobin 9.6 GM/DL (12.0-16.0); Immature Granulocytes % 0.4 %; Immature Granulocytes Absolute 0.02 #; Lymphocytes # 1.1 10*3/uL (1.4-4.0); Lymphocytes % 22.5 % (21.3-54.2); Mean Corpuscular HGB Conc 29.5 GM/DL (32-36); Mean Corpuscular Volume 97.9 FL (87-102); Mean Platelet Volume 9.8 FL (9.6-12.0); Monocytes % 17.4 % (1.7-12.7); Neutrophils % 53.4 % (38.7-73.9); Platelet Count 237 T/CUMM (130-400); Red Blood Count 3.32 MC/CUMM (3.8-5.5); Red Cell Distribution Width 14.2 % (9.3-17.3); White Blood Count 4.9 T/CUMM (4-12)
[2021-12-24 06:13] LABS: Calcium 8.9 MG/DL (8.5-10.1); Osmolality,Calculated 277.1 MOS/KG (273-304); Potassium 5.2 MMOL/L (3.5-5.1)
[2021-12-24 06:19] LABS: Band Neutrophils 1 % (0-10); Eosinophils 3 % (0-10); Hypochromia 1+; Lymphocytes 16 % (20-55); Microcytosis 1+; Platelet Estimate Adequate; Segmented Neutrophils 62 % (50-85); Total Cells Counted 100
[2021-12-24] MEDS ORDERED: SODIUM POLYSTYRENE SULFATE 15 GM/60 ML BOTTLE PO ONE (08:04)
[2021-12-24] MEDS: CHOLECALCIFEROL 1,000 UNIT TABLET PO SCH (09:28)
[2021-12-24] MEDS: buPROPion 75 MG TABLET PO SCH ×2 (09:29→21:26)
[2021-12-24] MEDS: FAMOTIDINE 20 MG TABLET PEG SCH (09:29)
[2021-12-24] MEDS: ATORVASTATIN 40 MG TABLET PO SCH (09:29)
[2021-12-24] MEDS: METOCLOPRAMIDE 5 MG TABLET PO SCH ×4 (09:29→21:26)
[2021-12-24] MEDS: DOCUSATE SODIUM 100 MG CAPSULE PO SCH ×2 (09:29→21:26)
[2021-12-24] MEDS: METOPROLOL TARTRATE 25 MG TABLET PO SCH ×2 (09:31→21:27)
[2021-12-24] MEDS: AMIODARONE 200 MG TABLET PO SCH (09:31)
[2021-12-24] MEDS: SEVELAMER CARBONATE 800 MG TABLET PO SCH ×3 (09:31→16:50)
[2021-12-24] MEDS: hydrALAZINE 25 MG TABLET PO SCH ×2 (09:31→21:27)
[2021-12-24] MEDS: MENTHOL/ZINC OXIDE OINT 71 GM JAR TOP SCH ×2 (09:31→21:28)
[2021-12-24] MEDS: HEPARIN 5,000 UNIT/1 ML VIAL SUBCUT SCH ×2 (09:32→21:28)
[2021-12-24] MEDS: POLYETHYLENE GLYCOL POWDER 17 GM PACK PO SCH ×2 (09:32→21:27)
[2021-12-24] MEDS: MEGESTROL 40 MG TABLET PO SCH ×2 (09:32→21:27)
[2021-12-24] MEDS: amLODIPine 10 MG TABLET PEG SCH (09:32)
[2021-12-24] MEDS: GABAPENTIN 50 MG/ML 30 ML/BOTTLE PO SCH (09:32)
[2021-12-24] MEDS: ISOSORBIDE DINITRATE 10 MG TABLET PO SCH ×3 (09:32→21:26)
[2021-12-24] MEDS: MIRTAZAPINE 15 MG TABLET PO SCH (21:26)
[2021-12-25] MEDS: ALBUTEROL/IPRATROPIUM 3 ML NEB RESP TX SCH ×4 (00:20→19:34)
[2021-12-25] MEDS: LEVOTHYROXINE 100 MCG TABLET PO SCH (05:02)
[2021-12-25 05:15] LABS: Basophils % 0.4 % (0.0-0.8); Eosinophils # 0.3 10*3/uL (0.0-0.87); Eosinophils % 5.1 % (0.00-10.9); Hemoglobin 9.8 GM/DL (12.0-16.0); Immature Granulocytes % 0.8 %; Immature Granulocytes Absolute 0.04 #; Lymphocytes # 1.1 10*3/uL (1.4-4.0); Mean Corpuscular HGB Conc 29.7 GM/DL (32-36); Mean Corpuscular Volume 96.8 FL (87-102); Mean Platelet Volume 9.1 FL (9.6-12.0); Monocytes % 15.2 % (1.7-12.7); Neutrophils % 55.5 % (38.7-73.9); Platelet Count 249 T/CUMM (130-400); Red Blood Count 3.41 MC/CUMM (3.8-5.5); Red Cell Distribution Width 13.8 % (9.3-17.3); White Blood Count 4.9 T/CUMM (4-12)
[2021-12-25 05:47] LABS: Calcium 8.7 MG/DL (8.5-10.1); Osmolality,Calculated 285.8 MOS/KG (273-304); Potassium 5.4 MMOL/L (3.5-5.1)
[2021-12-25] MEDS: METOCLOPRAMIDE 5 MG TABLET PO SCH ×4 (14:24→20:50)
[2021-12-25] MEDS: FAMOTIDINE 20 MG TABLET PEG SCH (14:25)
[2021-12-25] MEDS: SEVELAMER CARBONATE 800 MG TABLET PO SCH ×3 (14:25→16:05)
[2021-12-25] MEDS: DOCUSATE SODIUM 100 MG CAPSULE PO SCH ×2 (14:26→20:50)
[2021-12-25] MEDS: amLODIPine 10 MG TABLET PEG SCH (14:26)
[2021-12-25] MEDS: CHOLECALCIFEROL 1,000 UNIT TABLET PO SCH (14:27)
[2021-12-25] MEDS: buPROPion 75 MG TABLET PO SCH ×2 (14:27→20:49)
[2021-12-25] MEDS: hydrALAZINE 25 MG TABLET PO SCH ×2 (14:28→20:50)
[2021-12-25] MEDS: MEGESTROL 40 MG TABLET PO SCH ×2 (14:28→20:50)
[2021-12-25] MEDS: AMIODARONE 200 MG TABLET PO SCH (14:28)
[2021-12-25] MEDS: HEPARIN 5,000 UNIT/1 ML VIAL SUBCUT SCH ×2 (14:29→20:51)
[2021-12-25] MEDS: ATORVASTATIN 40 MG TABLET PO SCH (14:33)
[2021-12-25] MEDS: ISOSORBIDE DINITRATE 10 MG TABLET PO SCH ×3 (14:33→20:50)
[2021-12-25] MEDS: METOPROLOL TARTRATE 25 MG TABLET PO SCH ×2 (14:34→20:50)
[2021-12-25] MEDS: POLYETHYLENE GLYCOL POWDER 17 GM PACK PO SCH ×2 (14:35→20:49)
[2021-12-25] MEDS: GABAPENTIN 50 MG/ML 30 ML/BOTTLE PO SCH (14:35)
[2021-12-25] MEDS: MENTHOL/ZINC OXIDE OINT 71 GM JAR TOP SCH ×2 (14:36→21:01)
[2021-12-25] MEDS: MIRTAZAPINE 15 MG TABLET PO SCH (20:50)
[2021-12-25] MEDS: ACETAMINOPHEN 325 MG TABLET PO PRN (20:59)
[2021-12-26] MEDS: ALBUTEROL/IPRATROPIUM 3 ML NEB RESP TX SCH ×3 (00:54→13:03)
[2021-12-26] MEDS: LEVOTHYROXINE 100 MCG TABLET PO SCH (05:33)
[2021-12-26 05:41] LABS: Basophils % 0.2 % (0.0-0.8); Eosinophils # 0.2 10*3/uL (0.0-0.87); Eosinophils % 4.7 % (0.00-10.9); Hematocrit 33.5 VOL% (35.7-47.0); Immature Granulocytes % 0.6 %; Immature Granulocytes Absolute 0.03 #; Lymphocytes # 0.9 10*3/uL (1.4-4.0); Lymphocytes % 19.2 % (21.3-54.2); Mean Corpuscular HGB Conc 29.9 GM/DL (32-36); Mean Platelet Volume 9.3 FL (9.6-12.0); Monocytes % 12.7 % (1.7-12.7); Neutrophils % 62.6 % (38.7-73.9); Platelet Count 252 T/CUMM (130-400); Red Blood Count 3.42 MC/CUMM (3.8-5.5); Red Cell Distribution Width 14.1 % (9.3-17.3); White Blood Count 4.9 T/CUMM (4-12)
[2021-12-26 05:53] LABS: Calcium 8.9 MG/DL (8.5-10.1); Potassium 4.6 MMOL/L (3.5-5.1)
[2021-12-26] MEDS: hydrALAZINE 25 MG TABLET PO SCH (08:23)
[2021-12-26] MEDS: METOCLOPRAMIDE 5 MG TABLET PO SCH ×2 (08:23→12:32)
[2021-12-26] MEDS: SEVELAMER CARBONATE 800 MG TABLET PO SCH ×2 (08:23→12:31)
[2021-12-26] MEDS: AMIODARONE 200 MG TABLET PO SCH (08:24)
[2021-12-26] MEDS: DOCUSATE SODIUM 100 MG CAPSULE PO SCH (08:24)
[2021-12-26] MEDS: MENTHOL/ZINC OXIDE OINT 71 GM JAR TOP SCH (08:24)
[2021-12-26] MEDS: MEGESTROL 40 MG TABLET PO SCH (08:25)
[2021-12-26] MEDS: ISOSORBIDE DINITRATE 10 MG TABLET PO SCH ×2 (08:25→14:03)
[2021-12-26] MEDS: METOPROLOL TARTRATE 25 MG TABLET PO SCH (08:25)
[2021-12-26] MEDS: ATORVASTATIN 40 MG TABLET PO SCH (08:25)
[2021-12-26] MEDS: amLODIPine 10 MG TABLET PEG SCH (08:26)
[2021-12-26] MEDS: POLYETHYLENE GLYCOL POWDER 17 GM PACK PO SCH (08:26)
[2021-12-26] MEDS: GABAPENTIN 50 MG/ML 30 ML/BOTTLE PO SCH (08:26)
[2021-12-26] MEDS: FAMOTIDINE 20 MG TABLET PEG SCH (08:26)
[2021-12-26] MEDS: buPROPion 75 MG TABLET PO SCH (08:27)
[2021-12-26] MEDS: CHOLECALCIFEROL 1,000 UNIT TABLET PO SCH (08:27)
[2021-12-26] MEDS: ACETAMINOPHEN 325 MG TABLET PO PRN (08:28)
[2021-12-26] MEDS: HEPARIN 5,000 UNIT/1 ML VIAL SUBCUT SCH (08:28)
[2021-12-26] MEDS ORDERED: TUBERCULIN SKIN TEST 0.1 ML SYRINGE INTRADERM ONE (11:22)
[2021-12-26 13:07] VITALS: BP 150/67
== END 2021-12-26 14:45 | DRG 5 ==
LOC: EDBD → EDUNIT# → N.ED 11:49 → SUATTDRO 14:57 → N.EDINP 14:57 → N.2E 16:33 → N.CC 07-21 06:31 → N.3E 08-02 17:19 → N.ICU 08-03 21:49 → N.5E 08-17 11:45 → N.CC 11-07 05:57 → N.5E 11-11 18:16
PROVIDERS: ADMIT Internal Medicine; ATTEND Internal Medicine
PROC: EGDWPEG (ICD-10-PCS; 2021-08-07 11:35)
PROC: IRTHORA (2021-09-17 15:05)

== ENCOUNTER 2022-01-12 20:15 | Inpatient (IN) ==
[2022-01-12 20:40] LABS: Basophils % 0.1 % (0.0-0.8); Eosinophils % 0.5 % (0.00-10.9); Hematocrit 24.8 VOL% (35.7-47.0); Hemoglobin 7.3 GM/DL (12.0-16.0); Immature Granulocytes % 0.6 %; Immature Granulocytes Absolute 0.05 #; Lymphocytes # 0.5 10*3/uL (1.4-4.0); Lymphocytes % 6.5 % (21.3-54.2); Mean Corpuscular HGB Conc 29.4 GM/DL (32-36); Mean Corpuscular Volume 96.9 FL (87-102); Mean Platelet Volume 9.7 FL (9.6-12.0); Monocytes # 1.1 10*3/uL (0.11-0.8); Monocytes % 13.8 % (1.7-12.7); Neutrophils % 78.5 % (38.7-73.9); Platelet Count 164 T/CUMM (130-400); Red Blood Count 2.56 MC/CUMM (3.8-5.5); Red Cell Distribution Width 14.9 % (9.3-17.3); White Blood Count 7.8 T/CUMM (4-12)
[2022-01-12 21:12] LABS: Calcium 8.5 MG/DL (8.5-10.1); Osmolality,Calculated 270.8 MOS/KG (273-304); Potassium 4.1 MMOL/L (3.5-5.1)
[2022-01-12] MEDS ORDERED: PIPERACILLIN/TAZOBACTAM 3,375 MG in SODIUM CHLORIDE 0.9% 100 ML IV STA (22:25)
[2022-01-12] MEDS ORDERED: LEVOFLOXACIN INJ 500 MG/100 ML PREMIX IV STA (22:25)
[2022-01-12] MEDS ORDERED: hydrALAZINE 20 MG/1 ML VIAL IV PRN (22:58)
[2022-01-12] MEDS ORDERED: ONDANSETRON 4 MG/2 ML VIAL IV PRN (22:58)
[2022-01-12] MEDS ORDERED: DEXTROSE 10% 250 ML BAG IV PRN (22:58)
[2022-01-12] MEDS ORDERED: GLUCAGON 1 MG VIAL IM PRN (22:58)
[2022-01-12] MEDS ORDERED: HEPARIN 5,000 UNIT/1 ML VIAL SUBCUT SCH (23:00)
[2022-01-13 04:42] LABS: Basophils % 0.1 % (0.0-0.8); Eosinophils # 0.1 10*3/uL (0.0-0.87); Eosinophils % 1.7 % (0.00-10.9); Hematocrit 23.7 VOL% (35.7-47.0); Hemoglobin 6.9 GM/DL (12.0-16.0); Immature Granulocytes % 0.7 %; Immature Granulocytes Absolute 0.05 #; Lymphocytes # 0.8 10*3/uL (1.4-4.0); Lymphocytes % 11.1 % (21.3-54.2); Mean Corpuscular HGB Conc 29.1 GM/DL (32-36); Mean Corpuscular Volume 96.7 FL (87-102); Mean Platelet Volume 9.4 FL (9.6-12.0); Monocytes # 1.1 10*3/uL (0.11-0.8); Monocytes % 15.8 % (1.7-12.7); Neutrophils % 70.6 % (38.7-73.9); Platelet Count 156 T/CUMM (130-400); Red Blood Count 2.45 MC/CUMM (3.8-5.5); Red Cell Distribution Width 14.8 % (9.3-17.3)
[2022-01-13 05:02] LABS: Eosinophils 6 % (0-10); Hypochromia 1+; Lymphocytes 8 % (20-55); Microcytosis 1+; Platelet Estimate Adequate; Total Cells Counted 100
[2022-01-13 05:27] LABS: Alanine Aminotransferase 29 U/L (13-56); Albumin 1.9 G/DL (3.4-5.0); Alkaline Phosphatase 89 U/L (45-117); Aspartate Amino Transferase 27 U/L (0-37); Bilirubin,Total < 0.39 MG/DL (0.20-1.00); Blood Urea Nitrogen 47 MG/DL (7-18); Calcium 8.6 MG/DL (8.5-10.1); Carbon Dioxide 32 MMOL/L (21-32); Chloride 93 MMOL/L (98-107); Estimated Glom Filtration Rate 13 ML/MIN; Glucose 72 MG/DL (74-106); Osmolality,Calculated 267.1 MOS/KG (273-304); Potassium 4.1 MMOL/L (3.5-5.1); Sodium 128 MMOL/L (136-145); Total Protein 6.1 G/DL (6.4-8.2)
[2022-01-13] MEDS: ALBUTEROL/IPRATROPIUM 3 ML NEB RESP TX SCH ×4 (07:03→19:14)
[2022-01-13] MEDS: INSULIN LISPRO 100 UNIT/ML SUBCUT SCH ×2 (09:29→21:08)
[2022-01-13] MEDS: AZITHROMYCIN INJ 500 MG in SODIUM CHLORIDE 0.9% 250 ML IV SCH (10:30)
[2022-01-13] MEDS: PANTOPRAZOLE 40 MG TABLET PO SCH (10:30)
[2022-01-13] MEDS: PIPERACILLIN/TAZOBACTAM 3,375 MG in SODIUM CHLORIDE 0.9% 100 ML IV SCH ×2 (12:20→22:48)
[2022-01-13] MEDS ORDERED: ALTEPLASE 2 MG VIAL INTRACATH ONE (13:30)
[2022-01-13] MEDS ORDERED: SODIUM CHLORIDE 0.9% 1,000 ML IV PRN (14:14)
[2022-01-13] MEDS ORDERED: ACETAMINOPHEN 325 MG TABLET PO PRN (20:05)
[2022-01-13] MEDS ORDERED: ONDANSETRON ODT 4 MG TABLET PO PRN (20:05)
[2022-01-13] MEDS: METOPROLOL TARTRATE 25 MG TABLET PO SCH (21:08)
[2022-01-13] MEDS: ASPIRIN CHEW 81 MG TABLET PO SCH (21:08)
[2022-01-13] MEDS: POLYETHYLENE GLYCOL POWDER 17 GM PACK PO SCH (21:08)
[2022-01-13] MEDS: traZODone 50 MG TABLET PO SCH (21:09)
[2022-01-13] MEDS: ISOSORBIDE DINITRATE 10 MG TABLET PO SCH (21:09)
[2022-01-13] MEDS: ATORVASTATIN 40 MG TABLET PO SCH (21:09)
[2022-01-13] MEDS: hydrALAZINE 25 MG TABLET PO SCH (21:09)
[2022-01-13] MEDS: amLODIPine 10 MG TABLET PO SCH (21:09)
[2022-01-13] MEDS: MEGESTROL 40 MG TABLET PO SCH (21:09)
[2022-01-14] MEDS: ALBUTEROL/IPRATROPIUM 3 ML NEB RESP TX SCH ×4 (00:29→19:45)
[2022-01-14] MEDS: INSULIN LISPRO 100 UNIT/ML SUBCUT SCH ×4 (02:14→16:10)
[2022-01-14] MEDS: SEVELAMER CARBONATE 800 MG TABLET PO SCH ×4 (02:14→17:00)
[2022-01-14 05:32] LABS: Basophils % 0.2 % (0.0-0.8); Eosinophils % 0.4 % (0.00-10.9); Hematocrit 27.4 VOL% (35.7-47.0); Hemoglobin 8.4 GM/DL (12.0-16.0); Immature Granulocytes % 0.7 %; Immature Granulocytes Absolute 0.04 #; Lymphocytes # 0.6 10*3/uL (1.4-4.0); Lymphocytes % 11.2 % (21.3-54.2); Mean Corpuscular HGB Conc 30.7 GM/DL (32-36); Mean Corpuscular Volume 93.5 FL (87-102); Mean Platelet Volume 10.6 FL (9.6-12.0); Monocytes % 17.7 % (1.7-12.7); Neutrophils % 69.8 % (38.7-73.9); Platelet Count 145 T/CUMM (130-400); Red Blood Count 2.93 MC/CUMM (3.8-5.5); Red Cell Distribution Width 15.3 % (9.3-17.3); White Blood Count 5.5 T/CUMM (4-12)
[2022-01-14 05:55] LABS: Calcium 8.5 MG/DL (8.5-10.1); Osmolality,Calculated 277.8 MOS/KG (273-304); Potassium 3.9 MMOL/L (3.5-5.1)
[2022-01-14] MEDS: METOCLOPRAMIDE 5 MG TABLET PO SCH ×2 (05:56→17:00)
[2022-01-14] MEDS: AMIODARONE 200 MG TABLET PO SCH ×2 (05:56→17:00)
[2022-01-14] MEDS: LEVOTHYROXINE 100 MCG TABLET PO SCH (05:56)
[2022-01-14] MEDS: METOPROLOL TARTRATE 25 MG TABLET PO SCH ×2 (05:56→17:00)
[2022-01-14] MEDS: ISOSORBIDE DINITRATE 10 MG TABLET PO SCH ×3 (05:56→21:47)
[2022-01-14] MEDS: GABAPENTIN 300 MG CAPSULE PO SCH ×2 (05:56→17:00)
[2022-01-14 06:06] LABS: Hypochromia 1+; Lymphocytes 9 % (20-55); Microcytosis 1+; Platelet Estimate Adequate; Total Cells Counted 100
[2022-01-14] MEDS ORDERED: ERGOCALCIFEROL 50,000 UNIT CAPSULE PO SCH (09:00)
[2022-01-14] MEDS ORDERED: POLYETHYLENE GLYCOL POWDER 17 GM PACK PO SCH (09:00)
[2022-01-14] MEDS: MEGESTROL 40 MG TABLET PO SCH ×2 (10:26→21:47)
[2022-01-14] MEDS: AZITHROMYCIN INJ 500 MG in SODIUM CHLORIDE 0.9% 250 ML IV SCH (10:26)
[2022-01-14] MEDS: hydrALAZINE 25 MG TABLET PO SCH ×2 (10:27→21:46)
[2022-01-14] MEDS: PANTOPRAZOLE 40 MG TABLET PO SCH (10:27)
[2022-01-14] MEDS: POLYETHYLENE GLYCOL POWDER 17 GM PACK PO SCH ×2 (10:27→21:49)
[2022-01-14] MEDS: buPROPion SR 150 MG TABLET PO SCH (10:27)
[2022-01-14] MEDS: MULTIVITAMIN (BEROCCA) TABLET PO SCH (10:27)
[2022-01-14] MEDS: PIPERACILLIN/TAZOBACTAM 3,375 MG in SODIUM CHLORIDE 0.9% 100 ML IV SCH (12:41)
[2022-01-14] MEDS ORDERED: VANCOMYCIN INJ 750 MG in SODIUM CHLORIDE 0.9% 250 ML IV PRN (13:03)
[2022-01-14] MEDS ORDERED: VANCOMYCIN INJ 2,250 MG in SODIUM CHLORIDE 0.9% 250 ML IV ONE (17:00)
[2022-01-14] MEDS: ESCITALOPRAM 10 MG TABLET PO SCH (17:00)
[2022-01-14] MEDS: amLODIPine 10 MG TABLET PO SCH (21:46)
[2022-01-14] MEDS: ATORVASTATIN 40 MG TABLET PO SCH (21:47)
[2022-01-14] MEDS: ASPIRIN CHEW 81 MG TABLET PO SCH (21:47)
[2022-01-14] MEDS: traZODone 50 MG TABLET PO SCH (21:47)
[2022-01-14] MEDS: ZINC OXIDE PASTE 113 GM TUBE TOP SCH (21:48)
[2022-01-15] MEDS: ALBUTEROL/IPRATROPIUM 3 ML NEB RESP TX SCH ×4 (00:28→19:20)
[2022-01-15] MEDS: INSULIN LISPRO 100 UNIT/ML SUBCUT SCH ×5 (02:15→20:19)
[2022-01-15] MEDS: PIPERACILLIN/TAZOBACTAM 3,375 MG in SODIUM CHLORIDE 0.9% 100 ML IV SCH ×2 (02:16→17:38)
[2022-01-15] MEDS: METOPROLOL TARTRATE 25 MG TABLET PO SCH ×2 (05:57→17:39)
[2022-01-15] MEDS: METOCLOPRAMIDE 5 MG TABLET PO SCH ×2 (05:57→17:39)
[2022-01-15] MEDS: LEVOTHYROXINE 100 MCG TABLET PO SCH (05:57)
[2022-01-15] MEDS: AMIODARONE 200 MG TABLET PO SCH ×2 (05:57→17:39)
[2022-01-15] MEDS: ISOSORBIDE DINITRATE 10 MG TABLET PO SCH ×3 (05:57→22:53)
[2022-01-15] MEDS: GABAPENTIN 300 MG CAPSULE PO SCH ×2 (05:57→17:39)
[2022-01-15] MEDS ORDERED: BUPIVACAINE MPF 0.25% 30 ML VIAL ONE (07:45)
[2022-01-15] MEDS ORDERED: LIDOCAINE 1%/EPI INJ 20 ML VIAL ONE (07:45)
[2022-01-15] MEDS ORDERED: HEPARIN 5,000 UNIT/1 ML VIAL ONE (07:45)
[2022-01-15] MEDS ORDERED: SODIUM CHLORIDE 0.9% 250 ML IV SCH (08:00)
[2022-01-15] MEDS ORDERED: KETAMINE 500 MG/10 ML VIAL ONE (08:01)
[2022-01-15] MEDS ORDERED: MIDAZOLAM 2 MG/2 ML VIAL ONE (08:01)
[2022-01-15 08:28] LABS: Basophils % 0.2 % (0.0-0.8); Eosinophils # 0.2 10*3/uL (0.0-0.87); Eosinophils % 3.5 % (0.00-10.9); Hematocrit 27.5 VOL% (35.7-47.0); Hemoglobin 8.2 GM/DL (12.0-16.0); Immature Granulocytes Absolute 0.05 #; Lymphocytes # 0.9 10*3/uL (1.4-4.0); Lymphocytes % 18.2 % (21.3-54.2); Mean Corpuscular HGB Conc 29.8 GM/DL (32-36); Mean Corpuscular Volume 92.9 FL (87-102); Monocytes # 0.7 10*3/uL (0.11-0.8); Monocytes % 14.3 % (1.7-12.7); Neutrophils % 62.8 % (38.7-73.9); Platelet Count 155 T/CUMM (130-400); Red Blood Count 2.96 MC/CUMM (3.8-5.5); Red Cell Distribution Width 14.9 % (9.3-17.3); White Blood Count 4.8 T/CUMM (4-12)
[2022-01-15 08:45] LABS: Calcium 8.1 MG/DL (8.5-10.1); Potassium 4.5 MMOL/L (3.5-5.1)
[2022-01-15] MEDS ORDERED: HYDROmorphone 1 MG/1 ML SYRINGE IV PRN (09:27)
[2022-01-15] MEDS ORDERED: HYDROmorphone 1 MG/1 ML SYRINGE ONE (09:29)
[2022-01-15] MEDS: hydrALAZINE 25 MG TABLET PO SCH ×2 (10:53→20:19)
[2022-01-15] MEDS: SEVELAMER CARBONATE 800 MG TABLET PO SCH ×3 (10:53→17:39)
[2022-01-15] MEDS: PANTOPRAZOLE 40 MG TABLET PO SCH (10:54)
[2022-01-15] MEDS: MULTIVITAMIN (BEROCCA) TABLET PO SCH (10:54)
[2022-01-15] MEDS: MEGESTROL 40 MG TABLET PO SCH ×2 (10:54→20:18)
[2022-01-15] MEDS: buPROPion SR 150 MG TABLET PO SCH (10:54)
[2022-01-15] MEDS: ZINC OXIDE PASTE 113 GM TUBE TOP SCH ×2 (10:54→20:19)
[2022-01-15] MEDS: POLYETHYLENE GLYCOL POWDER 17 GM PACK PO SCH ×2 (10:54→20:21)
[2022-01-15] MEDS ORDERED: HEPARIN 10,000 UNIT/10 ML VIAL IV SCH (11:00)
[2022-01-15] MEDS: AZITHROMYCIN INJ 500 MG in SODIUM CHLORIDE 0.9% 250 ML IV SCH (17:38)
[2022-01-15] MEDS: ESCITALOPRAM 10 MG TABLET PO SCH (17:39)
[2022-01-15] MEDS: amLODIPine 10 MG TABLET PO SCH (20:18)
[2022-01-15] MEDS: ASPIRIN CHEW 81 MG TABLET PO SCH (20:18)
[2022-01-15] MEDS: traZODone 50 MG TABLET PO SCH (20:18)
[2022-01-15] MEDS: ATORVASTATIN 40 MG TABLET PO SCH (20:18)
[2022-01-16] MEDS: ALBUTEROL/IPRATROPIUM 3 ML NEB RESP TX SCH ×4 (00:05→19:15)
[2022-01-16 05:16] LABS: Basophils % 0.2 % (0.0-0.8); Eosinophils # 0.2 10*3/uL (0.0-0.87); Eosinophils % 3.9 % (0.00-10.9); Hematocrit 28.1 VOL% (35.7-47.0); Hemoglobin 8.4 GM/DL (12.0-16.0); Immature Granulocytes % 1.2 %; Immature Granulocytes Absolute 0.06 #; Lymphocytes % 19.5 % (21.3-54.2); Mean Corpuscular HGB Conc 29.9 GM/DL (32-36); Mean Corpuscular Volume 94.6 FL (87-102); Mean Platelet Volume 9.8 FL (9.6-12.0); Monocytes # 0.7 10*3/uL (0.11-0.8); Monocytes % 13.1 % (1.7-12.7); Neutrophils % 62.1 % (38.7-73.9); Platelet Count 178 T/CUMM (130-400); Red Blood Count 2.97 MC/CUMM (3.8-5.5); Red Cell Distribution Width 15.1 % (9.3-17.3); White Blood Count 5.2 T/CUMM (4-12)
[2022-01-16] MEDS: PIPERACILLIN/TAZOBACTAM 3,375 MG in SODIUM CHLORIDE 0.9% 100 ML IV SCH ×2 (05:33→16:44)
[2022-01-16] MEDS: GABAPENTIN 300 MG CAPSULE PO SCH ×2 (05:33→16:43)
[2022-01-16] MEDS: METOPROLOL TARTRATE 25 MG TABLET PO SCH ×2 (05:33→16:43)
[2022-01-16] MEDS: LEVOTHYROXINE 100 MCG TABLET PO SCH (05:34)
[2022-01-16] MEDS: AMIODARONE 200 MG TABLET PO SCH ×2 (05:34→16:43)
[2022-01-16] MEDS: METOCLOPRAMIDE 5 MG TABLET PO SCH ×2 (05:34→16:43)
[2022-01-16] MEDS: ISOSORBIDE DINITRATE 10 MG TABLET PO SCH ×3 (05:34→21:00)
[2022-01-16 05:36] LABS: Calcium 8.2 MG/DL (8.5-10.1); Potassium 4.1 MMOL/L (3.5-5.1)
[2022-01-16] MEDS: INSULIN LISPRO 100 UNIT/ML SUBCUT SCH ×4 (07:43→21:01)
[2022-01-16] MEDS: hydrALAZINE 25 MG TABLET PO SCH ×2 (09:09→20:59)
[2022-01-16] MEDS: MEGESTROL 40 MG TABLET PO SCH ×2 (09:09→21:00)
[2022-01-16] MEDS: PANTOPRAZOLE 40 MG TABLET PO SCH (09:10)
[2022-01-16] MEDS: MULTIVITAMIN (BEROCCA) TABLET PO SCH (09:10)
[2022-01-16] MEDS: POLYETHYLENE GLYCOL POWDER 17 GM PACK PO SCH ×2 (09:10→21:01)
[2022-01-16] MEDS: ZINC OXIDE PASTE 113 GM TUBE TOP SCH ×2 (09:10→21:00)
[2022-01-16] MEDS: SEVELAMER CARBONATE 800 MG TABLET PO SCH ×3 (09:10→16:45)
[2022-01-16] MEDS: AZITHROMYCIN INJ 500 MG in SODIUM CHLORIDE 0.9% 250 ML IV SCH (09:10)
[2022-01-16] MEDS: buPROPion SR 150 MG TABLET PO SCH (09:10)
[2022-01-16] MEDS: guaiFENesin/DM ER 600-30 MG TABLET PO SCH ×2 (16:43→20:59)
[2022-01-16] MEDS: BENZONATATE 100 MG CAPSULE PO SCH ×2 (16:43→20:59)
[2022-01-16] MEDS: ESCITALOPRAM 10 MG TABLET PO SCH (16:43)
[2022-01-16] MEDS: traZODone 50 MG TABLET PO SCH (20:59)
[2022-01-16] MEDS: ATORVASTATIN 40 MG TABLET PO SCH (21:00)
[2022-01-16] MEDS: ASPIRIN CHEW 81 MG TABLET PO SCH (21:00)
[2022-01-16] MEDS: amLODIPine 10 MG TABLET PO SCH (21:00)
[2022-01-17] MEDS: ALBUTEROL/IPRATROPIUM 3 ML NEB RESP TX SCH ×4 (00:10→18:58)
[2022-01-17 05:18] LABS: Basophils % 0.5 % (0.0-0.8); Eosinophils # 0.2 10*3/uL (0.0-0.87); Eosinophils % 3.1 % (0.00-10.9); Hematocrit 28.8 VOL% (35.7-47.0); Hemoglobin 8.5 GM/DL (12.0-16.0); Immature Granulocytes % 1.5 %; Immature Granulocytes Absolute 0.09 #; Lymphocytes # 1.1 10*3/uL (1.4-4.0); Lymphocytes % 17.9 % (21.3-54.2); Mean Corpuscular HGB Conc 29.5 GM/DL (32-36); Mean Corpuscular Volume 94.1 FL (87-102); Mean Platelet Volume 9.6 FL (9.6-12.0); Monocytes # 0.6 10*3/uL (0.11-0.8); Monocytes % 9.9 % (1.7-12.7); Neutrophils % 67.1 % (38.7-73.9); Platelet Count 199 T/CUMM (130-400); Red Blood Count 3.06 MC/CUMM (3.8-5.5); White Blood Count 5.9 T/CUMM (4-12)
[2022-01-17] MEDS: METOCLOPRAMIDE 5 MG TABLET PO SCH ×2 (05:30→17:20)
[2022-01-17] MEDS: LEVOTHYROXINE 100 MCG TABLET PO SCH (05:30)
[2022-01-17] MEDS: ISOSORBIDE DINITRATE 10 MG TABLET PO SCH ×3 (05:30→21:44)
[2022-01-17] MEDS: GABAPENTIN 300 MG CAPSULE PO SCH ×2 (05:31→17:20)
[2022-01-17] MEDS: METOPROLOL TARTRATE 25 MG TABLET PO SCH ×2 (05:31→17:20)
[2022-01-17] MEDS: AMIODARONE 200 MG TABLET PO SCH ×2 (05:31→17:20)
[2022-01-17] MEDS: PIPERACILLIN/TAZOBACTAM 3,375 MG in SODIUM CHLORIDE 0.9% 100 ML IV SCH ×2 (05:31→17:21)
[2022-01-17 05:33] LABS: Calcium 8.5 MG/DL (8.5-10.1); Osmolality,Calculated 275.2 MOS/KG (273-304); Potassium 4.5 MMOL/L (3.5-5.1)
[2022-01-17] MEDS: INSULIN LISPRO 100 UNIT/ML SUBCUT SCH ×4 (09:27→21:44)
[2022-01-17] MEDS: MEGESTROL 40 MG TABLET PO SCH ×2 (09:28→21:44)
[2022-01-17] MEDS: SEVELAMER CARBONATE 800 MG TABLET PO SCH ×3 (09:28→17:20)
[2022-01-17] MEDS: MULTIVITAMIN (BEROCCA) TABLET PO SCH (09:28)
[2022-01-17] MEDS: ZINC OXIDE PASTE 113 GM TUBE TOP SCH ×2 (09:28→21:44)
[2022-01-17] MEDS: hydrALAZINE 25 MG TABLET PO SCH ×2 (09:28→21:44)
[2022-01-17] MEDS: POLYETHYLENE GLYCOL POWDER 17 GM PACK PO SCH ×2 (09:29→23:47)
[2022-01-17] MEDS: guaiFENesin/DM ER 600-30 MG TABLET PO SCH ×2 (09:29→21:44)
[2022-01-17] MEDS: BENZONATATE 100 MG CAPSULE PO SCH ×3 (09:29→21:44)
[2022-01-17] MEDS: buPROPion SR 150 MG TABLET PO SCH (09:29)
[2022-01-17] MEDS: PANTOPRAZOLE 40 MG TABLET PO SCH (09:29)
[2022-01-17] MEDS: AZITHROMYCIN INJ 500 MG in SODIUM CHLORIDE 0.9% 250 ML IV SCH (13:15)
[2022-01-17] MEDS: ESCITALOPRAM 10 MG TABLET PO SCH (17:20)
[2022-01-17] MEDS: ASPIRIN CHEW 81 MG TABLET PO SCH (21:44)
[2022-01-17] MEDS: ATORVASTATIN 40 MG TABLET PO SCH (21:44)
[2022-01-17] MEDS: traZODone 50 MG TABLET PO SCH (21:44)
[2022-01-17] MEDS: amLODIPine 10 MG TABLET PO SCH (21:44)
[2022-01-18] MEDS: ALBUTEROL/IPRATROPIUM 3 ML NEB RESP TX SCH ×5 (00:03→23:50)
[2022-01-18 05:31] LABS: Basophils % 0.6 % (0.0-0.8); Eosinophils # 0.2 10*3/uL (0.0-0.87); Eosinophils % 3.3 % (0.00-10.9); Hematocrit 27.3 VOL% (35.7-47.0); Hemoglobin 8.1 GM/DL (12.0-16.0); Immature Granulocytes % 1.4 %; Immature Granulocytes Absolute 0.07 #; Lymphocytes # 1.1 10*3/uL (1.4-4.0); Lymphocytes % 21.9 % (21.3-54.2); Mean Corpuscular HGB Conc 29.7 GM/DL (32-36); Mean Corpuscular Volume 94.1 FL (87-102); Mean Platelet Volume 9.2 FL (9.6-12.0); Monocytes # 0.6 10*3/uL (0.11-0.8); Monocytes % 10.9 % (1.7-12.7); Neutrophils % 61.9 % (38.7-73.9); Platelet Count 204 T/CUMM (130-400); White Blood Count 5.2 T/CUMM (4-12)
[2022-01-18] MEDS: GABAPENTIN 300 MG CAPSULE PO SCH ×2 (05:31→16:44)
[2022-01-18] MEDS: METOPROLOL TARTRATE 25 MG TABLET PO SCH ×2 (05:31→16:43)
[2022-01-18] MEDS: ISOSORBIDE DINITRATE 10 MG TABLET PO SCH ×3 (05:31→21:36)
[2022-01-18] MEDS: METOCLOPRAMIDE 5 MG TABLET PO SCH ×2 (05:31→16:43)
[2022-01-18] MEDS: LEVOTHYROXINE 100 MCG TABLET PO SCH (05:31)
[2022-01-18] MEDS: AMIODARONE 200 MG TABLET PO SCH ×2 (05:31→16:43)
[2022-01-18] MEDS: PIPERACILLIN/TAZOBACTAM 3,375 MG in SODIUM CHLORIDE 0.9% 100 ML IV SCH ×2 (05:31→16:43)
[2022-01-18 05:46] LABS: Calcium 8.2 MG/DL (8.5-10.1); Osmolality,Calculated 274.1 MOS/KG (273-304); Potassium 4.4 MMOL/L (3.5-5.1)
[2022-01-18] MEDS: POLYETHYLENE GLYCOL POWDER 17 GM PACK PO SCH ×2 (09:30→21:37)
[2022-01-18] MEDS: ZINC OXIDE PASTE 113 GM TUBE TOP SCH ×2 (09:30→21:36)
[2022-01-18] MEDS: MULTIVITAMIN (BEROCCA) TABLET PO SCH (09:31)
[2022-01-18] MEDS: PANTOPRAZOLE 40 MG TABLET PO SCH (09:32)
[2022-01-18] MEDS: guaiFENesin/DM ER 600-30 MG TABLET PO SCH ×2 (09:32→21:36)
[2022-01-18] MEDS: BENZONATATE 100 MG CAPSULE PO SCH ×3 (09:32→21:35)
[2022-01-18] MEDS: SEVELAMER CARBONATE 800 MG TABLET PO SCH ×3 (09:32→16:43)
[2022-01-18] MEDS: hydrALAZINE 25 MG TABLET PO SCH ×2 (09:32→21:36)
[2022-01-18] MEDS: MEGESTROL 40 MG TABLET PO SCH ×2 (09:32→21:35)
[2022-01-18] MEDS: buPROPion SR 150 MG TABLET PO SCH (09:32)
[2022-01-18] MEDS: INSULIN LISPRO 100 UNIT/ML SUBCUT SCH ×4 (09:54→23:00)
[2022-01-18] MEDS: ESCITALOPRAM 10 MG TABLET PO SCH (16:43)
[2022-01-18] MEDS: ASPIRIN CHEW 81 MG TABLET PO SCH (21:35)
[2022-01-18] MEDS: amLODIPine 10 MG TABLET PO SCH (21:35)
[2022-01-18] MEDS: ATORVASTATIN 40 MG TABLET PO SCH (21:35)
[2022-01-18] MEDS: traZODone 50 MG TABLET PO SCH (21:36)
[2022-01-19] MEDS: LEVOTHYROXINE 100 MCG TABLET PO SCH (05:35)
[2022-01-19] MEDS: GABAPENTIN 300 MG CAPSULE PO SCH ×2 (05:35→16:45)
[2022-01-19] MEDS: ISOSORBIDE DINITRATE 10 MG TABLET PO SCH ×3 (05:35→21:12)
[2022-01-19] MEDS: METOCLOPRAMIDE 5 MG TABLET PO SCH ×2 (05:35→16:39)
[2022-01-19] MEDS: METOPROLOL TARTRATE 25 MG TABLET PO SCH ×2 (05:35→16:46)
[2022-01-19] MEDS: PIPERACILLIN/TAZOBACTAM 3,375 MG in SODIUM CHLORIDE 0.9% 100 ML IV SCH ×2 (05:36→16:37)
[2022-01-19] MEDS: AMIODARONE 200 MG TABLET PO SCH ×2 (05:37→16:38)
[2022-01-19 06:33] LABS: Basophils % 0.4 % (0.0-0.8); Eosinophils # 0.2 10*3/uL (0.0-0.87); Eosinophils % 3.7 % (0.00-10.9); Hematocrit 31.4 VOL% (35.7-47.0); Hemoglobin 9.3 GM/DL (12.0-16.0); Immature Granulocytes % 1.6 %; Immature Granulocytes Absolute 0.08 #; Lymphocytes % 19.2 % (21.3-54.2); Mean Corpuscular HGB Conc 29.6 GM/DL (32-36); Mean Platelet Volume 9.2 FL (9.6-12.0); Monocytes # 0.5 10*3/uL (0.11-0.8); Monocytes % 9.7 % (1.7-12.7); Neutrophils % 65.4 % (38.7-73.9); Platelet Count 271 T/CUMM (130-400); Red Blood Count 3.34 MC/CUMM (3.8-5.5); Red Cell Distribution Width 15.4 % (9.3-17.3); White Blood Count 5.2 T/CUMM (4-12)
[2022-01-19 07:01] LABS: Calcium 9.2 MG/DL (8.5-10.1); Osmolality,Calculated 277.2 MOS/KG (273-304); Potassium 4.8 MMOL/L (3.5-5.1)
[2022-01-19] MEDS: ALBUTEROL/IPRATROPIUM 3 ML NEB RESP TX SCH ×3 (07:27→18:51)
[2022-01-19] MEDS: guaiFENesin/DM ER 600-30 MG TABLET PO SCH ×2 (09:19→21:10)
[2022-01-19] MEDS: SEVELAMER CARBONATE 800 MG TABLET PO SCH ×3 (09:19→16:39)
[2022-01-19] MEDS: buPROPion SR 150 MG TABLET PO SCH (09:19)
[2022-01-19] MEDS: hydrALAZINE 25 MG TABLET PO SCH ×2 (09:19→21:12)
[2022-01-19] MEDS: BENZONATATE 100 MG CAPSULE PO SCH ×3 (09:20→21:12)
[2022-01-19] MEDS: PANTOPRAZOLE 40 MG TABLET PO SCH (09:20)
[2022-01-19] MEDS: MULTIVITAMIN (BEROCCA) TABLET PO SCH (09:20)
[2022-01-19] MEDS: POLYETHYLENE GLYCOL POWDER 17 GM PACK PO SCH ×2 (11:14→21:20)
[2022-01-19] MEDS: MEGESTROL 40 MG TABLET PO SCH ×2 (11:14→21:12)
[2022-01-19] MEDS: ZINC OXIDE PASTE 113 GM TUBE TOP SCH ×2 (11:15→21:19)
[2022-01-19] MEDS: INSULIN LISPRO 100 UNIT/ML SUBCUT SCH ×3 (11:15→16:36)
[2022-01-19] MEDS: ESCITALOPRAM 10 MG TABLET PO SCH (16:46)
[2022-01-19] MEDS: traZODone 50 MG TABLET PO SCH (21:10)
[2022-01-19] MEDS: ATORVASTATIN 40 MG TABLET PO SCH (21:12)
[2022-01-19] MEDS: amLODIPine 10 MG TABLET PO SCH (21:18)
[2022-01-19] MEDS: ASPIRIN CHEW 81 MG TABLET PO SCH (21:18)
[2022-01-20] MEDS: ALBUTEROL/IPRATROPIUM 3 ML NEB RESP TX SCH ×4 (00:40→19:25)
[2022-01-20] MEDS: INSULIN LISPRO 100 UNIT/ML SUBCUT SCH ×5 (02:43→21:45)
[2022-01-20] MEDS: PIPERACILLIN/TAZOBACTAM 3,375 MG in SODIUM CHLORIDE 0.9% 100 ML IV SCH (05:27)
[2022-01-20] MEDS: LEVOTHYROXINE 100 MCG TABLET PO SCH (05:27)
[2022-01-20] MEDS: GABAPENTIN 300 MG CAPSULE PO SCH ×2 (05:28→17:13)
[2022-01-20] MEDS: METOPROLOL TARTRATE 25 MG TABLET PO SCH ×2 (05:28→17:13)
[2022-01-20] MEDS: ISOSORBIDE DINITRATE 10 MG TABLET PO SCH ×3 (05:28→21:15)
[2022-01-20] MEDS: AMIODARONE 200 MG TABLET PO SCH ×2 (05:31→17:13)
[2022-01-20] MEDS: METOCLOPRAMIDE 5 MG TABLET PO SCH ×2 (05:31→17:13)
[2022-01-20 06:25] LABS: Basophils % 0.5 % (0.0-0.8); Eosinophils # 0.2 10*3/uL (0.0-0.87); Eosinophils % 3.1 % (0.00-10.9); Hematocrit 28.4 VOL% (35.7-47.0); Hemoglobin 8.4 GM/DL (12.0-16.0); Immature Granulocytes % 0.9 %; Immature Granulocytes Absolute 0.05 #; Lymphocytes % 16.5 % (21.3-54.2); Mean Corpuscular HGB Conc 29.6 GM/DL (32-36); Mean Platelet Volume 9.5 FL (9.6-12.0); Monocytes # 0.6 10*3/uL (0.11-0.8); Monocytes % 10.3 % (1.7-12.7); Neutrophils % 68.7 % (38.7-73.9); Platelet Count 258 T/CUMM (130-400); Red Blood Count 2.99 MC/CUMM (3.8-5.5); Red Cell Distribution Width 15.2 % (9.3-17.3); White Blood Count 5.8 T/CUMM (4-12)
[2022-01-20 06:33] LABS: Albumin 2.1 G/DL (3.4-5.0); Calcium 8.4 MG/DL (8.5-10.1); Osmolality,Calculated 283.2 MOS/KG (273-304); Phosphorous 5.2 MG/DL (2.5-4.9); Potassium 5.5 MMOL/L (3.5-5.1)
[2022-01-20] MEDS: BENZONATATE 100 MG CAPSULE PO SCH ×3 (08:13→20:25)
[2022-01-20] MEDS: POLYETHYLENE GLYCOL POWDER 17 GM PACK PO SCH ×2 (08:13→20:25)
[2022-01-20] MEDS: MEGESTROL 40 MG TABLET PO SCH ×2 (08:14→20:25)
[2022-01-20] MEDS: MULTIVITAMIN (BEROCCA) TABLET PO SCH (08:14)
[2022-01-20] MEDS: buPROPion SR 150 MG TABLET PO SCH (08:14)
[2022-01-20] MEDS: PANTOPRAZOLE 40 MG TABLET PO SCH (08:14)
[2022-01-20] MEDS: SEVELAMER CARBONATE 800 MG TABLET PO SCH ×3 (08:14→17:13)
[2022-01-20] MEDS: hydrALAZINE 25 MG TABLET PO SCH ×2 (08:15→20:25)
[2022-01-20] MEDS: ZINC OXIDE PASTE 113 GM TUBE TOP SCH ×2 (08:15→20:25)
[2022-01-20] MEDS: guaiFENesin/DM ER 600-30 MG TABLET PO SCH ×2 (08:15→20:25)
[2022-01-20 10:24] LABS: Hepatitis B Surface Ag Quant < 0.10 Index; Hepatitis B Surface Ag Result Non-Reactive (NonReactive)
[2022-01-20] MEDS: cefTRIAXone 1,000 MG in SODIUM CHLORIDE 0.9% 100 ML IV SCH (17:12)
[2022-01-20] MEDS: ESCITALOPRAM 10 MG TABLET PO SCH (17:13)
[2022-01-20] MEDS: ATORVASTATIN 40 MG TABLET PO SCH (20:25)
[2022-01-20] MEDS: traZODone 50 MG TABLET PO SCH (20:25)
[2022-01-20] MEDS: amLODIPine 10 MG TABLET PO SCH (20:25)
[2022-01-20] MEDS: ASPIRIN CHEW 81 MG TABLET PO SCH (20:25)
[2022-01-21] MEDS: ALBUTEROL/IPRATROPIUM 3 ML NEB RESP TX SCH ×5 (01:05→19:45)
[2022-01-21] MEDS: METOCLOPRAMIDE 5 MG TABLET PO SCH ×2 (05:55→17:02)
[2022-01-21] MEDS: AMIODARONE 200 MG TABLET PO SCH ×2 (05:55→17:03)
[2022-01-21] MEDS: ISOSORBIDE DINITRATE 10 MG TABLET PO SCH ×3 (05:55→21:20)
[2022-01-21] MEDS: GABAPENTIN 300 MG CAPSULE PO SCH ×2 (05:55→17:03)
[2022-01-21] MEDS: LEVOTHYROXINE 100 MCG TABLET PO SCH (05:55)
[2022-01-21] MEDS: METOPROLOL TARTRATE 25 MG TABLET PO SCH ×2 (05:55→17:03)
[2022-01-21] MEDS: ZINC OXIDE PASTE 113 GM TUBE TOP SCH ×2 (11:30→20:20)
[2022-01-21] MEDS: INSULIN LISPRO 100 UNIT/ML SUBCUT SCH ×3 (11:56→20:20)
[2022-01-21] MEDS: SEVELAMER CARBONATE 800 MG TABLET PO SCH ×3 (11:56→17:02)
[2022-01-21] MEDS: POLYETHYLENE GLYCOL POWDER 17 GM PACK PO SCH ×2 (11:57→20:20)
[2022-01-21] MEDS: hydrALAZINE 25 MG TABLET PO SCH ×2 (11:57→20:20)
[2022-01-21] MEDS: MULTIVITAMIN (BEROCCA) TABLET PO SCH (11:57)
[2022-01-21] MEDS: MEGESTROL 40 MG TABLET PO SCH ×2 (11:57→20:20)
[2022-01-21] MEDS: guaiFENesin/DM ER 600-30 MG TABLET PO SCH ×2 (11:57→20:20)
[2022-01-21] MEDS: BENZONATATE 100 MG CAPSULE PO SCH ×3 (11:58→20:20)
[2022-01-21] MEDS: buPROPion SR 150 MG TABLET PO SCH (11:58)
[2022-01-21] MEDS: PANTOPRAZOLE 40 MG TABLET PO SCH (11:58)
[2022-01-21] MEDS: cefTRIAXone 1,000 MG in SODIUM CHLORIDE 0.9% 100 ML IV SCH (17:01)
[2022-01-21] MEDS: ESCITALOPRAM 10 MG TABLET PO SCH (17:03)
[2022-01-21] MEDS: ATORVASTATIN 40 MG TABLET PO SCH (20:20)
[2022-01-21] MEDS: ASPIRIN CHEW 81 MG TABLET PO SCH (20:20)
[2022-01-21] MEDS: amLODIPine 10 MG TABLET PO SCH (20:20)
[2022-01-21] MEDS: traZODone 50 MG TABLET PO SCH (20:20)
[2022-01-22] MEDS: ALBUTEROL/IPRATROPIUM 3 ML NEB RESP TX SCH ×2 (00:55→07:35)
[2022-01-22] MEDS: GABAPENTIN 300 MG CAPSULE PO SCH (05:50)
[2022-01-22] MEDS: ISOSORBIDE DINITRATE 10 MG TABLET PO SCH (05:50)
[2022-01-22] MEDS: METOPROLOL TARTRATE 25 MG TABLET PO SCH (05:50)
[2022-01-22] MEDS: AMIODARONE 200 MG TABLET PO SCH (05:50)
[2022-01-22] MEDS: METOCLOPRAMIDE 5 MG TABLET PO SCH (05:50)
[2022-01-22] MEDS: LEVOTHYROXINE 100 MCG TABLET PO SCH (05:50)
[2022-01-22] MEDS: INSULIN LISPRO 100 UNIT/ML SUBCUT SCH ×2 (07:42→14:52)
[2022-01-22] MEDS: SEVELAMER CARBONATE 800 MG TABLET PO SCH ×2 (14:50→15:34)
[2022-01-22] MEDS: MEGESTROL 40 MG TABLET PO SCH (14:51)
[2022-01-22] MEDS: hydrALAZINE 25 MG TABLET PO SCH (14:51)
[2022-01-22] MEDS: guaiFENesin/DM ER 600-30 MG TABLET PO SCH (14:51)
[2022-01-22] MEDS: POLYETHYLENE GLYCOL POWDER 17 GM PACK PO SCH (14:51)
[2022-01-22] MEDS: BENZONATATE 100 MG CAPSULE PO SCH (14:51)
[2022-01-22] MEDS: MULTIVITAMIN (BEROCCA) TABLET PO SCH (15:34)
[2022-01-22] MEDS: PANTOPRAZOLE 40 MG TABLET PO SCH (15:34)
[2022-01-22] MEDS: buPROPion SR 150 MG TABLET PO SCH (15:34)
[2022-01-22] MEDS: ZINC OXIDE PASTE 113 GM TUBE TOP SCH (15:34)
[2022-01-22 16:30] VITALS: BP 137/63
== END 2022-01-22 16:23 | DRG 137 ==
LOC: EDUNIT# → EDBD → N.ED 20:15 → SUATTDRO 22:58 → N.EDINP 22:58 → N.5E 01-13 12:15
PROVIDERS: ADMIT Hospitalist; ATTEND Internal Medicine

== ENCOUNTER 2022-01-23 01:23 | Inpatient (IN) ==
[2022-01-23 01:53] LABS: Basophils % 0.7 % (0.0-0.8); Eosinophils # 0.1 10*3/uL (0.0-0.87); Eosinophils % 2.2 % (0.00-10.9); Hematocrit 27.1 VOL% (35.7-47.0); Hemoglobin 8.1 GM/DL (12.0-16.0); Immature Granulocytes % 0.8 %; Immature Granulocytes Absolute 0.05 #; Lymphocytes # 0.9 10*3/uL (1.4-4.0); Lymphocytes % 14.8 % (21.3-54.2); Mean Corpuscular HGB Conc 29.9 GM/DL (32-36); Mean Corpuscular Volume 94.4 FL (87-102); Monocytes # 0.6 10*3/uL (0.11-0.8); Monocytes % 10.7 % (1.7-12.7); Neutrophils % 70.8 % (38.7-73.9); Platelet Count 294 T/CUMM (130-400); Red Blood Count 2.87 MC/CUMM (3.8-5.5); Red Cell Distribution Width 15.6 % (9.3-17.3)
[2022-01-23] MEDS ORDERED: ALBUTEROL/IPRATROPIUM 3 ML NEB RESP TX STA (02:06)
[2022-01-23] MEDS ORDERED: MORPHINE 2 MG/1 ML SYRINGE IV STA (02:06)
[2022-01-23] MEDS ORDERED: PIPERACILLIN/TAZOBACTAM 3,375 MG in SODIUM CHLORIDE 0.9% 100 ML IV STA (02:06)
[2022-01-23] MEDS ORDERED: methylPREDNISolone SOD SUC 125 MG/2 ML VIAL IV STA (02:06)
[2022-01-23] MEDS ORDERED: ONDANSETRON 4 MG/2 ML VIAL IV STA (02:06)
[2022-01-23] MEDS ORDERED: ALBUTEROL/IPRATROPIUM 3 ML NEB RESP TX ONE (02:12)
[2022-01-23 02:13] LABS: Albumin 2.1 G/DL (3.4-5.0); Bilirubin,Total 0.4 MG/DL (0.20-1.00); Calcium 8.8 MG/DL (8.5-10.1); Potassium 3.8 MMOL/L (3.5-5.1); Total Protein 6.7 G/DL (6.4-8.2)
[2022-01-23 02:26] LABS: Partial Thromboplastin Time 27.4 SECS (23.8-32.1)
[2022-01-23 02:30] LABS: Arterial Base Excess iSTAT 4 MMOL/L (-2.5-2.5); Arterial O2 Saturation iSTAT 100 % (95-100); Arterial PCO2 iSTAT 45 MM HG (35-48); Arterial PO2 iSTAT 185 MM HG (80-95); Arterial Total CO2 iSTAT 30 MMO/L (23-27); Arterial pH iSTAT 7.419 (7.35-7.45)
[2022-01-23] MEDS ORDERED: ACETAMINOPHEN 325 MG TABLET PO PRN (03:51)
[2022-01-23] MEDS ORDERED: ONDANSETRON 4 MG/2 ML VIAL IV PRN (03:51)
[2022-01-23] MEDS ORDERED: GLUCAGON 1 MG VIAL IM PRN (03:51)
[2022-01-23] MEDS ORDERED: DEXTROSE 10% 250 ML BAG IV PRN (03:51)
[2022-01-23] MEDS ORDERED: DEXTROSE 50% 25 GM/50 ML VIAL IV PRN (03:51)
[2022-01-23] MEDS: hydrALAZINE 20 MG/1 ML VIAL IV PRN ×2 (05:07→16:21)
[2022-01-23] MEDS ORDERED: VANCOMYCIN INJ 750 MG in SODIUM CHLORIDE 0.9% 250 ML IV PRN (05:22)
[2022-01-23] MEDS ORDERED: VANCOMYCIN INJ 2,500 MG in SODIUM CHLORIDE 0.9% 500 ML IV ONE (07:30)
[2022-01-23] MEDS: ALBUTEROL/IPRATROPIUM 3 ML NEB RESP TX SCH ×3 (07:30→19:22)
[2022-01-23] MEDS: INSULIN LISPRO 100 UNIT/ML SUBCUT SCH ×4 (07:30→21:00)
[2022-01-23] MEDS: PANTOPRAZOLE 40 MG TABLET PO SCH (09:05)
[2022-01-23] MEDS: MORPHINE 2 MG/1 ML SYRINGE IV PRN ×2 (10:15→16:22)
[2022-01-23 11:23] LABS: Arterial Base Excess iSTAT 1 MMOL/L (-2.5-2.5); Arterial Bicarbonate iSTAT 26.2 MMOL/L (20-26); Arterial O2 Saturation iSTAT 100 % (95-100); Arterial PCO2 iSTAT 42 MM HG (35-48); Arterial PO2 iSTAT 175 MM HG (80-95); Arterial Total CO2 iSTAT 27 MMO/L (23-27); Arterial pH iSTAT 7.407 (7.35-7.45)
[2022-01-23] MEDS: GABAPENTIN 300 MG CAPSULE PO SCH ×2 (11:48→17:49)
[2022-01-23] MEDS: PIPERACILLIN/TAZOBACTAM 3,375 MG in SODIUM CHLORIDE 0.9% 100 ML IV SCH (14:35)
[2022-01-23] MEDS: BENZONATATE 100 MG CAPSULE PO SCH ×2 (16:20→23:03)
[2022-01-23] MEDS: AMIODARONE 200 MG TABLET PO SCH (17:49)
[2022-01-23] MEDS: ESCITALOPRAM 10 MG TABLET PO SCH (17:49)
[2022-01-23] MEDS: METOPROLOL TARTRATE 25 MG TABLET PO SCH (17:49)
[2022-01-23 17:53] LABS: Arterial Base Excess iSTAT 1 MMOL/L (-2.5-2.5); Arterial Bicarbonate iSTAT 25.9 MMOL/L (20-26); Arterial O2 Saturation iSTAT 96 % (95-100); Arterial PCO2 iSTAT 42 MM HG (35-48); Arterial PO2 iSTAT 83 MM HG (80-95); Arterial Total CO2 iSTAT 27 MMO/L (23-27); Arterial pH iSTAT 7.399 (7.35-7.45)
[2022-01-23] MEDS: SEVELAMER CARBONATE 800 MG TABLET PO SCH ×2 (18:06→23:03)
[2022-01-23] MEDS: ISOSORBIDE DINITRATE 10 MG TABLET PO SCH ×2 (18:07→23:04)
[2022-01-23] MEDS: HEPARIN 5,000 UNIT/1 ML VIAL SUBCUT SCH (18:22)
[2022-01-23] MEDS: guaiFENesin/DM ER 600-30 MG TABLET PO SCH (23:00)
[2022-01-23] MEDS: buPROPion SR 150 MG TABLET PO SCH (23:02)
[2022-01-23] MEDS: ASPIRIN CHEW 81 MG TABLET PO SCH (23:03)
[2022-01-23] MEDS: amLODIPine 10 MG TABLET PO SCH (23:03)
[2022-01-23] MEDS: MEGESTROL 40 MG TABLET PO SCH (23:04)
[2022-01-23] MEDS: ATORVASTATIN 40 MG TABLET PO SCH (23:05)
[2022-01-23] MEDS: POLYETHYLENE GLYCOL POWDER 17 GM PACK PO SCH (23:05)
[2022-01-23] MEDS: hydrALAZINE 25 MG TABLET PO SCH (23:16)
[2022-01-23] MEDS: traZODone 50 MG TABLET PO SCH (23:16)
[2022-01-23] MEDS: ZINC OXIDE PASTE 113 GM TUBE TOP SCH (23:18)
[2022-01-24] MEDS: ALBUTEROL/IPRATROPIUM 3 ML NEB RESP TX SCH ×4 (00:25→19:24)
[2022-01-24] MEDS: HEPARIN 5,000 UNIT/1 ML VIAL SUBCUT SCH ×3 (03:00→21:17)
[2022-01-24] MEDS: PIPERACILLIN/TAZOBACTAM 3,375 MG in SODIUM CHLORIDE 0.9% 100 ML IV SCH ×2 (03:45→15:59)
[2022-01-24] MEDS: SEVELAMER CARBONATE 800 MG TABLET PO SCH ×3 (05:06→21:15)
[2022-01-24] MEDS: ISOSORBIDE DINITRATE 10 MG TABLET PO SCH ×3 (05:06→21:15)
[2022-01-24] MEDS: AMIODARONE 200 MG TABLET PO SCH ×2 (05:06→16:00)
[2022-01-24] MEDS: METOPROLOL TARTRATE 25 MG TABLET PO SCH ×2 (05:06→16:00)
[2022-01-24] MEDS: GABAPENTIN 300 MG CAPSULE PO SCH ×2 (05:07→16:00)
[2022-01-24] MEDS: METOCLOPRAMIDE 5 MG TABLET PO SCH ×2 (05:13→16:01)
[2022-01-24 06:07] LABS: Basophils % 0.3 % (0.0-0.8); Eosinophils % 0.1 % (0.00-10.9); Hematocrit 27.5 VOL% (35.7-47.0); Hemoglobin 8.2 GM/DL (12.0-16.0); Immature Granulocytes % 0.7 %; Immature Granulocytes Absolute 0.05 #; Lymphocytes # 0.8 10*3/uL (1.4-4.0); Lymphocytes % 10.5 % (21.3-54.2); Mean Corpuscular HGB Conc 29.8 GM/DL (32-36); Mean Corpuscular Volume 94.2 FL (87-102); Mean Platelet Volume 8.9 FL (9.6-12.0); Monocytes # 0.5 10*3/uL (0.11-0.8); Monocytes % 6.4 % (1.7-12.7); Platelet Count 269 T/CUMM (130-400); Red Blood Count 2.92 MC/CUMM (3.8-5.5); Red Cell Distribution Width 15.5 % (9.3-17.3); White Blood Count 7.5 T/CUMM (4-12)
[2022-01-24 06:21] LABS: Calcium 9.3 MG/DL (8.5-10.1); Osmolality,Calculated 275.5 MOS/KG (273-304); Potassium 4.8 MMOL/L (3.5-5.1)
[2022-01-24] MEDS: guaiFENesin/DM ER 600-30 MG TABLET PO SCH ×2 (08:37→21:15)
[2022-01-24] MEDS: PANTOPRAZOLE 40 MG TABLET PO SCH (08:37)
[2022-01-24] MEDS: MEGESTROL 40 MG TABLET PO SCH ×2 (08:37→21:16)
[2022-01-24] MEDS: hydrALAZINE 25 MG TABLET PO SCH ×2 (08:37→21:15)
[2022-01-24] MEDS: BENZONATATE 100 MG CAPSULE PO SCH ×3 (08:37→21:15)
[2022-01-24] MEDS: INSULIN LISPRO 100 UNIT/ML SUBCUT SCH ×4 (08:38→21:17)
[2022-01-24] MEDS: ZINC OXIDE PASTE 113 GM TUBE TOP SCH ×2 (08:39→21:16)
[2022-01-24] MEDS: POLYETHYLENE GLYCOL POWDER 17 GM PACK PO SCH ×2 (08:39→21:15)
[2022-01-24] MEDS: ESCITALOPRAM 10 MG TABLET PO SCH (16:06)
[2022-01-24] MEDS: buPROPion SR 150 MG TABLET PO SCH (21:15)
[2022-01-24] MEDS: ASPIRIN CHEW 81 MG TABLET PO SCH (21:15)
[2022-01-24] MEDS: ATORVASTATIN 40 MG TABLET PO SCH (21:15)
[2022-01-24] MEDS: traZODone 50 MG TABLET PO SCH (21:15)
[2022-01-24] MEDS: amLODIPine 10 MG TABLET PO SCH (21:15)
[2022-01-24] MEDS: LEVOTHYROXINE 100 MCG TABLET PO SCH (23:04)
[2022-01-25] MEDS: PIPERACILLIN/TAZOBACTAM 3,375 MG in SODIUM CHLORIDE 0.9% 100 ML IV SCH ×2 (03:15→14:17)
[2022-01-25] MEDS: LEVOTHYROXINE 100 MCG TABLET PO SCH (05:43)
[2022-01-25] MEDS: METOPROLOL TARTRATE 25 MG TABLET PO SCH ×2 (05:43→17:44)
[2022-01-25] MEDS: AMIODARONE 200 MG TABLET PO SCH ×2 (05:43→17:44)
[2022-01-25] MEDS: GABAPENTIN 300 MG CAPSULE PO SCH ×2 (05:43→17:42)
[2022-01-25] MEDS: SEVELAMER CARBONATE 800 MG TABLET PO SCH ×3 (05:43→21:44)
[2022-01-25] MEDS: ISOSORBIDE DINITRATE 10 MG TABLET PO SCH ×3 (05:43→21:43)
[2022-01-25] MEDS: METOCLOPRAMIDE 5 MG TABLET PO SCH ×3 (05:43→18:16)
[2022-01-25] MEDS: ALBUTEROL/IPRATROPIUM 3 ML NEB RESP TX SCH ×4 (07:16→19:08)
[2022-01-25 07:21] LABS: Basophils % 0.4 % (0.0-0.8); Eosinophils # 0.2 10*3/uL (0.0-0.87); Eosinophils % 3.5 % (0.00-10.9); Hematocrit 24.6 VOL% (35.7-47.0); Hemoglobin 7.3 GM/DL (12.0-16.0); Immature Granulocytes % 0.7 %; Immature Granulocytes Absolute 0.03 #; Lymphocytes # 1.1 10*3/uL (1.4-4.0); Mean Corpuscular HGB Conc 29.7 GM/DL (32-36); Mean Platelet Volume 8.9 FL (9.6-12.0); Monocytes # 0.3 10*3/uL (0.11-0.8); Monocytes % 7.2 % (1.7-12.7); Neutrophils % 63.2 % (38.7-73.9); Platelet Count 267 T/CUMM (130-400); Red Blood Count 2.59 MC/CUMM (3.8-5.5); Red Cell Distribution Width 15.6 % (9.3-17.3); White Blood Count 4.6 T/CUMM (4-12)
[2022-01-25 07:48] LABS: Calcium 8.2 MG/DL (8.5-10.1); Potassium 4.6 MMOL/L (3.5-5.1)
[2022-01-25] MEDS ORDERED: HEPARIN 10,000 UNIT/10 ML VIAL IV ONE (08:00)
[2022-01-25] MEDS: INSULIN LISPRO 100 UNIT/ML SUBCUT SCH ×4 (08:04→22:15)
[2022-01-25] MEDS: HEPARIN 5,000 UNIT/1 ML VIAL SUBCUT SCH ×2 (10:16→21:45)
[2022-01-25] MEDS: MEGESTROL 40 MG TABLET PO SCH ×2 (10:16→21:44)
[2022-01-25] MEDS: ZINC OXIDE PASTE 113 GM TUBE TOP SCH ×2 (10:16→21:45)
[2022-01-25] MEDS: POLYETHYLENE GLYCOL POWDER 17 GM PACK PO SCH ×2 (10:16→21:45)
[2022-01-25] MEDS: PANTOPRAZOLE 40 MG TABLET PO SCH (10:16)
[2022-01-25] MEDS: hydrALAZINE 25 MG TABLET PO SCH ×2 (10:16→21:44)
[2022-01-25] MEDS: guaiFENesin/DM ER 600-30 MG TABLET PO SCH ×2 (10:17→21:44)
[2022-01-25] MEDS: BENZONATATE 100 MG CAPSULE PO SCH ×3 (10:17→21:44)
[2022-01-25] MEDS: ESCITALOPRAM 10 MG TABLET PO SCH (17:44)
[2022-01-25] MEDS ORDERED: INSULIN GLARGINE 100 UNIT/ML SUBCUT SCH (21:00)
[2022-01-25] MEDS: buPROPion SR 150 MG TABLET PO SCH (21:43)
[2022-01-25] MEDS: traZODone 50 MG TABLET PO SCH (21:44)
[2022-01-25] MEDS: ATORVASTATIN 40 MG TABLET PO SCH (21:44)
[2022-01-25] MEDS: ASPIRIN CHEW 81 MG TABLET PO SCH (21:44)
[2022-01-25] MEDS: amLODIPine 10 MG TABLET PO SCH (21:44)
[2022-01-26] MEDS: PIPERACILLIN/TAZOBACTAM 3,375 MG in SODIUM CHLORIDE 0.9% 100 ML IV SCH ×2 (02:27→16:38)
[2022-01-26] MEDS: GABAPENTIN 300 MG CAPSULE PO SCH ×2 (06:11→18:07)
[2022-01-26] MEDS: METOPROLOL TARTRATE 25 MG TABLET PO SCH ×2 (06:11→16:35)
[2022-01-26] MEDS: METOCLOPRAMIDE 5 MG TABLET PO SCH ×2 (06:11→16:34)
[2022-01-26] MEDS: SEVELAMER CARBONATE 800 MG TABLET PO SCH ×3 (06:11→21:13)
[2022-01-26] MEDS: AMIODARONE 200 MG TABLET PO SCH ×2 (06:11→16:35)
[2022-01-26] MEDS: LEVOTHYROXINE 100 MCG TABLET PO SCH (06:11)
[2022-01-26] MEDS: ISOSORBIDE DINITRATE 10 MG TABLET PO SCH ×3 (06:12→21:13)
[2022-01-26 06:27] LABS: Basophils % 0.5 % (0.0-0.8); Eosinophils # 0.2 10*3/uL (0.0-0.87); Eosinophils % 4.1 % (0.00-10.9); Hematocrit 26.6 VOL% (35.7-47.0); Hemoglobin 7.9 GM/DL (12.0-16.0); Immature Granulocytes % 0.5 %; Immature Granulocytes Absolute 0.02 #; Lymphocytes % 22.4 % (21.3-54.2); Mean Corpuscular HGB Conc 29.7 GM/DL (32-36); Mean Corpuscular Volume 94.7 FL (87-102); Mean Platelet Volume 9.1 FL (9.6-12.0); Monocytes # 0.5 10*3/uL (0.11-0.8); Monocytes % 10.9 % (1.7-12.7); Neutrophils % 61.6 % (38.7-73.9); Platelet Count 257 T/CUMM (130-400); Red Blood Count 2.81 MC/CUMM (3.8-5.5); Red Cell Distribution Width 15.5 % (9.3-17.3); White Blood Count 4.4 T/CUMM (4-12)
[2022-01-26 06:59] LABS: Calcium 8.3 MG/DL (8.5-10.1); Osmolality,Calculated 280.1 MOS/KG (273-304); Potassium 4.6 MMOL/L (3.5-5.1)
[2022-01-26] MEDS: ALBUTEROL/IPRATROPIUM 3 ML NEB RESP TX SCH ×4 (07:46→19:10)
[2022-01-26] MEDS: INSULIN LISPRO 100 UNIT/ML SUBCUT SCH ×4 (08:41→22:42)
[2022-01-26] MEDS: PANTOPRAZOLE 40 MG TABLET PO SCH (10:02)
[2022-01-26] MEDS: hydrALAZINE 25 MG TABLET PO SCH ×2 (10:02→21:13)
[2022-01-26] MEDS: BENZONATATE 100 MG CAPSULE PO SCH ×3 (10:02→21:13)
[2022-01-26] MEDS: MEGESTROL 40 MG TABLET PO SCH ×2 (10:02→21:13)
[2022-01-26] MEDS: guaiFENesin/DM ER 600-30 MG TABLET PO SCH ×2 (10:02→22:42)
[2022-01-26] MEDS: HEPARIN 5,000 UNIT/1 ML VIAL SUBCUT SCH ×2 (10:03→21:14)
[2022-01-26] MEDS: POLYETHYLENE GLYCOL POWDER 17 GM PACK PO SCH ×2 (10:03→21:14)
[2022-01-26] MEDS: ZINC OXIDE PASTE 113 GM TUBE TOP SCH ×2 (10:11→21:14)
[2022-01-26 11:04] LABS: Arterial Base Excess iSTAT 0 MMOL/L (-2.5-2.5); Arterial Bicarbonate iSTAT 25.5 MMOL/L (20-26); Arterial O2 Saturation iSTAT 97 % (95-100); Arterial PCO2 iSTAT 43 MM HG (35-48); Arterial PO2 iSTAT 98 MM HG (80-95); Arterial Total CO2 iSTAT 27 MMO/L (23-27)
[2022-01-26] MEDS: ESCITALOPRAM 10 MG TABLET PO SCH (18:07)
[2022-01-26] MEDS: ATORVASTATIN 40 MG TABLET PO SCH (21:13)
[2022-01-26] MEDS: amLODIPine 10 MG TABLET PO SCH (21:13)
[2022-01-26] MEDS: ASPIRIN CHEW 81 MG TABLET PO SCH (21:13)
[2022-01-26] MEDS: traZODone 50 MG TABLET PO SCH (21:13)
[2022-01-26] MEDS: buPROPion SR 150 MG TABLET PO SCH (21:13)
[2022-01-26] MEDS: INSULIN GLARGINE 100 UNIT/ML SUBCUT SCH (21:14)
[2022-01-27] MEDS: ALBUTEROL/IPRATROPIUM 3 ML NEB RESP TX SCH ×4 (00:10→19:00)
[2022-01-27] MEDS: PIPERACILLIN/TAZOBACTAM 3,375 MG in SODIUM CHLORIDE 0.9% 100 ML IV SCH ×2 (02:29→17:40)
[2022-01-27] MEDS: METOPROLOL TARTRATE 25 MG TABLET PO SCH ×2 (05:33→17:41)
[2022-01-27] MEDS: AMIODARONE 200 MG TABLET PO SCH ×2 (05:33→17:41)
[2022-01-27] MEDS: ISOSORBIDE DINITRATE 10 MG TABLET PO SCH ×3 (05:33→21:41)
[2022-01-27] MEDS: METOCLOPRAMIDE 5 MG TABLET PO SCH ×2 (06:08→17:41)
[2022-01-27] MEDS: GABAPENTIN 300 MG CAPSULE PO SCH ×2 (06:08→17:41)
[2022-01-27] MEDS: SEVELAMER CARBONATE 800 MG TABLET PO SCH ×3 (06:08→21:41)
[2022-01-27] MEDS: LEVOTHYROXINE 100 MCG TABLET PO SCH (06:11)
[2022-01-27] MEDS ORDERED: MEPERIDINE 50 MG/1 ML VIAL IM ONE (07:00)
[2022-01-27] MEDS ORDERED: PROMETHAZINE 25 MG/1 ML VIAL IM ONE (07:00)
[2022-01-27] MEDS ORDERED: LIDOCAINE 1% 20 ML VIAL MISC INJ ONE (07:30)
[2022-01-27] MEDS ORDERED: MIDAZOLAM 2 MG/2 ML VIAL IV ONE (07:30)
[2022-01-27] MEDS ORDERED: LIDOCAINE 2% VISCOUS 100 ML BOTTLE SWISH/SPIT ONE (07:30)
[2022-01-27] MEDS ORDERED: LIDOCAINE 2% 20 ML VIAL RESP TX ONE (07:30)
[2022-01-27 08:47] LABS: Basophils % 0.2 % (0.0-0.8); Eosinophils # 0.2 10*3/uL (0.0-0.87); Eosinophils % 3.4 % (0.00-10.9); Hematocrit 24.9 VOL% (35.7-47.0); Hemoglobin 7.4 GM/DL (12.0-16.0); Immature Granulocytes % 0.6 %; Immature Granulocytes Absolute 0.03 #; Lymphocytes # 0.9 10*3/uL (1.4-4.0); Lymphocytes % 20.2 % (21.3-54.2); Mean Corpuscular HGB Conc 29.7 GM/DL (32-36); Mean Corpuscular Volume 93.6 FL (87-102); Mean Platelet Volume 9.3 FL (9.6-12.0); Monocytes # 0.5 10*3/uL (0.11-0.8); Monocytes % 10.9 % (1.7-12.7); Neutrophils % 64.7 % (38.7-73.9); Platelet Count 251 T/CUMM (130-400); Red Blood Count 2.66 MC/CUMM (3.8-5.5); Red Cell Distribution Width 15.6 % (9.3-17.3); White Blood Count 4.7 T/CUMM (4-12)
[2022-01-27 08:59] LABS: PT Patient Result 10.8 SECS (10.5-12.0)
[2022-01-27] MEDS ORDERED: ERGOCALCIFEROL 50,000 UNIT CAPSULE PO SCH (09:00)
[2022-01-27 09:06] LABS: Calcium 8.3 MG/DL (8.5-10.1); Osmolality,Calculated 281.2 MOS/KG (273-304); Potassium 5.3 MMOL/L (3.5-5.1)
[2022-01-27] MEDS: hydrALAZINE 25 MG TABLET PO SCH ×2 (10:35→21:42)
[2022-01-27] MEDS: HEPARIN 5,000 UNIT/1 ML VIAL SUBCUT SCH ×2 (10:35→21:46)
[2022-01-27] MEDS: BENZONATATE 100 MG CAPSULE PO SCH ×3 (10:35→21:41)
[2022-01-27] MEDS: ZINC OXIDE PASTE 113 GM TUBE TOP SCH ×2 (10:35→21:41)
[2022-01-27] MEDS: MEGESTROL 40 MG TABLET PO SCH ×2 (10:35→22:05)
[2022-01-27] MEDS: PANTOPRAZOLE 40 MG TABLET PO SCH (10:35)
[2022-01-27] MEDS: guaiFENesin/DM ER 600-30 MG TABLET PO SCH ×2 (10:35→22:05)
[2022-01-27] MEDS: POLYETHYLENE GLYCOL POWDER 17 GM PACK PO SCH ×2 (10:35→21:42)
[2022-01-27] MEDS: INSULIN LISPRO 100 UNIT/ML SUBCUT SCH ×3 (12:36→21:42)
[2022-01-27] MEDS ORDERED: GLUCAGON 1 MG VIAL IM PRN (12:56)
[2022-01-27] MEDS ORDERED: DEXTROSE 50% 25 GM/50 ML VIAL IV PRN (12:56)
[2022-01-27] MEDS ORDERED: HEPARIN 10,000 UNIT/10 ML VIAL IV SCH (17:30)
[2022-01-27] MEDS: ESCITALOPRAM 10 MG TABLET PO SCH (17:41)
[2022-01-27] MEDS ORDERED: FUROSEMIDE 40 MG/4 ML VIAL IV ONE (19:43)
[2022-01-27] MEDS ORDERED: methylPREDNISolone SOD SUC 125 MG/2 ML VIAL IV ONE (19:44)
[2022-01-27] MEDS ORDERED: ALBUTEROL 1.25 MG/3 ML NEB RESP TX PRN (20:24)
[2022-01-27] MEDS: INSULIN GLARGINE 100 UNIT/ML SUBCUT SCH (21:40)
[2022-01-27] MEDS: amLODIPine 10 MG TABLET PO SCH (21:41)
[2022-01-27] MEDS: ASPIRIN CHEW 81 MG TABLET PO SCH (21:41)
[2022-01-27] MEDS: traZODone 50 MG TABLET PO SCH (21:41)
[2022-01-27] MEDS: buPROPion SR 150 MG TABLET PO SCH (21:41)
[2022-01-27] MEDS: ATORVASTATIN 40 MG TABLET PO SCH (22:05)
[2022-01-28] MEDS: ALBUTEROL/IPRATROPIUM 3 ML NEB RESP TX SCH ×4 (00:05→19:19)
[2022-01-28] MEDS: PIPERACILLIN/TAZOBACTAM 3,375 MG in SODIUM CHLORIDE 0.9% 100 ML IV SCH (02:52)
[2022-01-28] MEDS: methylPREDNISolone SOD SUC 40 MG/1 ML VIAL IV SCH ×4 (02:54→21:15)
[2022-01-28] MEDS: GABAPENTIN 300 MG CAPSULE PO SCH ×2 (05:09→16:45)
[2022-01-28] MEDS: METOCLOPRAMIDE 5 MG TABLET PO SCH ×2 (05:09→16:45)
[2022-01-28] MEDS: SEVELAMER CARBONATE 800 MG TABLET PO SCH ×3 (05:09→21:12)
[2022-01-28 05:11] LABS: Hematocrit 26.7 VOL% (35.7-47.0); Hemoglobin 8.1 GM/DL (12.0-16.0); Immature Granulocytes % 0.8 %; Immature Granulocytes Absolute 0.02 #; Lymphocytes # 0.2 10*3/uL (1.4-4.0); Lymphocytes % 6.2 % (21.3-54.2); Mean Corpuscular HGB Conc 30.3 GM/DL (32-36); Mean Corpuscular Volume 92.7 FL (87-102); Mean Platelet Volume 9.3 FL (9.6-12.0); Monocytes # 0.1 10*3/uL (0.11-0.8); Monocytes % 1.9 % (1.7-12.7); Neutrophils % 91.1 % (38.7-73.9); Platelet Count 228 T/CUMM (130-400); Red Blood Count 2.88 MC/CUMM (3.8-5.5); Red Cell Distribution Width 15.2 % (9.3-17.3); White Blood Count 2.6 T/CUMM (4-12)
[2022-01-28 05:30] LABS: Osmolality,Calculated 272.7 MOS/KG (273-304); Potassium 5.1 MMOL/L (3.5-5.1)
[2022-01-28 05:33] LABS: Eosinophils 1 % (0-10); Hypochromia 1+; Lymphocytes 3 % (20-55); Microcytosis 1+; Platelet Estimate Normal; Total Cells Counted 100
[2022-01-28] MEDS: LEVOTHYROXINE 100 MCG TABLET PO SCH (06:05)
[2022-01-28] MEDS: ISOSORBIDE DINITRATE 10 MG TABLET PO SCH ×3 (06:05→21:13)
[2022-01-28] MEDS: AMIODARONE 200 MG TABLET PO SCH ×2 (06:05→16:45)
[2022-01-28] MEDS: METOPROLOL TARTRATE 25 MG TABLET PO SCH ×2 (07:29→16:45)
[2022-01-28] MEDS: POLYETHYLENE GLYCOL POWDER 17 GM PACK PO SCH ×2 (09:02→21:13)
[2022-01-28] MEDS: HEPARIN 5,000 UNIT/1 ML VIAL SUBCUT SCH ×2 (09:03→21:14)
[2022-01-28] MEDS: ZINC OXIDE PASTE 113 GM TUBE TOP SCH ×2 (09:03→21:16)
[2022-01-28] MEDS: hydrALAZINE 25 MG TABLET PO SCH (09:04)
[2022-01-28] MEDS: PANTOPRAZOLE 40 MG TABLET PO SCH (09:04)
[2022-01-28] MEDS: guaiFENesin/DM ER 600-30 MG TABLET PO SCH ×2 (09:04→21:12)
[2022-01-28] MEDS: MEGESTROL 40 MG TABLET PO SCH ×2 (09:04→21:13)
[2022-01-28] MEDS: BENZONATATE 100 MG CAPSULE PO SCH ×3 (09:04→21:13)
[2022-01-28] MEDS: INSULIN LISPRO 100 UNIT/ML SUBCUT SCH ×4 (09:40→21:14)
[2022-01-28] MEDS: ESCITALOPRAM 10 MG TABLET PO SCH (16:45)
[2022-01-28] MEDS: traZODone 50 MG TABLET PO SCH (21:12)
[2022-01-28] MEDS: amLODIPine 10 MG TABLET PO SCH (21:13)
[2022-01-28] MEDS: ASPIRIN CHEW 81 MG TABLET PO SCH (21:13)
[2022-01-28] MEDS: buPROPion SR 150 MG TABLET PO SCH (21:13)
[2022-01-28] MEDS: ATORVASTATIN 40 MG TABLET PO SCH (21:13)
[2022-01-28] MEDS: INSULIN GLARGINE 100 UNIT/ML SUBCUT SCH (21:14)
[2022-01-29] MEDS: ALBUTEROL/IPRATROPIUM 3 ML NEB RESP TX SCH ×4 (00:52→19:18)
[2022-01-29] MEDS: methylPREDNISolone SOD SUC 40 MG/1 ML VIAL IV SCH ×4 (03:54→21:08)
[2022-01-29] MEDS: SEVELAMER CARBONATE 800 MG TABLET PO SCH ×3 (05:54→20:46)
[2022-01-29] MEDS: GABAPENTIN 300 MG CAPSULE PO SCH ×2 (05:54→17:04)
[2022-01-29] MEDS: LEVOTHYROXINE 100 MCG TABLET PO SCH (05:54)
[2022-01-29] MEDS: AMIODARONE 200 MG TABLET PO SCH ×2 (05:54→17:03)
[2022-01-29] MEDS: METOCLOPRAMIDE 5 MG TABLET PO SCH ×2 (05:54→17:03)
[2022-01-29] MEDS: ISOSORBIDE DINITRATE 10 MG TABLET PO SCH ×4 (05:55→21:00)
[2022-01-29] MEDS: METOPROLOL TARTRATE 25 MG TABLET PO SCH ×2 (05:55→17:10)
[2022-01-29 07:36] LABS: Osmolality,Calculated 283.7 MOS/KG (273-304); Potassium 5.7 MMOL/L (3.5-5.1)
[2022-01-29 08:59] LABS: Hematocrit 26.3 VOL% (35.7-47.0); Mean Corpuscular Volume 92.9 FL (87-102); Red Blood Count 2.83 MC/CUMM (3.8-5.5); White Blood Count 5.5 T/CUMM (4-12)
[2022-01-29 09:00] LABS: Immature Granulocytes % 1.1 %; Immature Granulocytes Absolute 0.06 #; Lymphocytes # 0.2 10*3/uL (1.4-4.0); Lymphocytes % 4.2 % (21.3-54.2); Mean Corpuscular HGB Conc 30.4 GM/DL (32-36); Mean Platelet Volume 9.6 FL (9.6-12.0); Monocytes # 0.3 10*3/uL (0.11-0.8); Monocytes % 4.7 % (1.7-12.7); Platelet Count 279 T/CUMM (130-400); Red Cell Distribution Width 15.3 % (9.3-17.3)
[2022-01-29] MEDS: INSULIN LISPRO 100 UNIT/ML SUBCUT SCH ×4 (09:03→20:49)
[2022-01-29 09:22] LABS: Lymphocytes 4 % (20-55); Platelet Estimate Adequate; Total Cells Counted 100
[2022-01-29] MEDS: ZINC OXIDE PASTE 113 GM TUBE TOP SCH ×2 (12:07→20:48)
[2022-01-29] MEDS: BENZONATATE 100 MG CAPSULE PO SCH ×3 (12:08→20:46)
[2022-01-29] MEDS: POLYETHYLENE GLYCOL POWDER 17 GM PACK PO SCH ×2 (13:09→21:00)
[2022-01-29] MEDS: PANTOPRAZOLE 40 MG TABLET PO SCH (13:09)
[2022-01-29] MEDS: HEPARIN 5,000 UNIT/1 ML VIAL SUBCUT SCH ×2 (13:18→20:49)
[2022-01-29] MEDS: MEGESTROL 40 MG TABLET PO SCH ×2 (13:19→20:46)
[2022-01-29] MEDS: guaiFENesin/DM ER 600-30 MG TABLET PO SCH ×2 (13:26→20:46)
[2022-01-29 15:08] LABS: Calcium 8.5 MG/DL (8.5-10.1); Osmolality,Calculated 285.8 MOS/KG (273-304); Potassium 3.9 MMOL/L (3.5-5.1)
[2022-01-29] MEDS ORDERED: VANCOMYCIN INJ 1,000 MG in SODIUM CHLORIDE 0.9% 250 ML IV SCH (17:00)
[2022-01-29] MEDS: ESCITALOPRAM 10 MG TABLET PO SCH (17:03)
[2022-01-29] MEDS: amLODIPine 10 MG TABLET PO SCH (20:45)
[2022-01-29] MEDS: ATORVASTATIN 40 MG TABLET PO SCH (20:46)
[2022-01-29] MEDS: traZODone 50 MG TABLET PO SCH (20:46)
[2022-01-29] MEDS: buPROPion SR 150 MG TABLET PO SCH (20:46)
[2022-01-29] MEDS: ASPIRIN CHEW 81 MG TABLET PO SCH (20:46)
[2022-01-29] MEDS: INSULIN GLARGINE 100 UNIT/ML SUBCUT SCH (20:48)
[2022-01-30] MEDS: ALBUTEROL/IPRATROPIUM 3 ML NEB RESP TX SCH ×3 (00:15→13:42)
[2022-01-30 05:33] LABS: Hematocrit 24.6 VOL% (35.7-47.0); Hemoglobin 7.1 GM/DL (12.0-16.0); Immature Granulocytes % 0.5 %; Immature Granulocytes Absolute 0.02 #; Lymphocytes # 0.2 10*3/uL (1.4-4.0); Lymphocytes % 4.7 % (21.3-54.2); Mean Corpuscular HGB Conc 28.9 GM/DL (32-36); Mean Corpuscular Volume 94.6 FL (87-102); Mean Platelet Volume 9.8 FL (9.6-12.0); Monocytes # 0.1 10*3/uL (0.11-0.8); Monocytes % 2.4 % (1.7-12.7); Neutrophils % 92.4 % (38.7-73.9); Platelet Count 244 T/CUMM (130-400); Red Cell Distribution Width 15.6 % (9.3-17.3); White Blood Count 4.2 T/CUMM (4-12)
[2022-01-30 05:49] LABS: Potassium 4.6 MMOL/L (3.5-5.1)
[2022-01-30] MEDS: AMIODARONE 200 MG TABLET PO SCH (05:50)
[2022-01-30] MEDS: LEVOTHYROXINE 100 MCG TABLET PO SCH (05:50)
[2022-01-30] MEDS: METOPROLOL TARTRATE 25 MG TABLET PO SCH (05:50)
[2022-01-30] MEDS: ISOSORBIDE DINITRATE 10 MG TABLET PO SCH (05:50)
[2022-01-30] MEDS: METOCLOPRAMIDE 5 MG TABLET PO SCH (05:51)
[2022-01-30] MEDS: SEVELAMER CARBONATE 800 MG TABLET PO SCH (05:51)
[2022-01-30] MEDS: GABAPENTIN 300 MG CAPSULE PO SCH (05:51)
[2022-01-30 05:53] LABS: Lymphocytes 5 % (20-55); Platelet Estimate Adequate; Total Cells Counted 100
[2022-01-30] MEDS: methylPREDNISolone SOD SUC 40 MG/1 ML VIAL IV SCH ×2 (06:12→14:28)
[2022-01-30] MEDS: INSULIN LISPRO 100 UNIT/ML SUBCUT SCH ×2 (09:21→14:28)
[2022-01-30] MEDS: POLYETHYLENE GLYCOL POWDER 17 GM PACK PO SCH (09:21)
[2022-01-30] MEDS: MEGESTROL 40 MG TABLET PO SCH (09:22)
[2022-01-30] MEDS: BENZONATATE 100 MG CAPSULE PO SCH ×2 (09:22→14:27)
[2022-01-30] MEDS: HEPARIN 5,000 UNIT/1 ML VIAL SUBCUT SCH (09:22)
[2022-01-30] MEDS: PANTOPRAZOLE 40 MG TABLET PO SCH (09:22)
[2022-01-30] MEDS: guaiFENesin/DM ER 600-30 MG TABLET PO SCH (09:22)
[2022-01-30] MEDS: ZINC OXIDE PASTE 113 GM TUBE TOP SCH (09:25)
[2022-01-30 12:01] VITALS: BP 147/80
[2022-01-30 12:55] LABS: Hematocrit 26.2 VOL% (35.7-47.0); Hemoglobin 7.7 GM/DL (12.0-16.0)
== END 2022-01-30 15:30 | DRG 194 ==
LOC: EDBD → EDUNIT# → N.ED 01:23 → N.EDINP 03:51 → SUATTDRO 03:51 → N.3E 17:10
PROVIDERS: ADMIT Internal Medicine; ATTEND Internal Medicine

== ENCOUNTER 2022-02-03 15:05 | Inpatient (IN) ==
[2022-02-03 15:57] LABS: Hematocrit 26.2 VOL% (35.7-47.0); Immature Granulocytes % 1.1 %; Immature Granulocytes Absolute 0.11 #; Lymphocytes # 0.4 10*3/uL (1.4-4.0); Mean Corpuscular HGB Conc 30.5 GM/DL (32-36); Mean Corpuscular Volume 93.6 FL (87-102); Mean Platelet Volume 9.8 FL (9.6-12.0); Monocytes # 0.5 10*3/uL (0.11-0.8); Monocytes % 4.8 % (1.7-12.7); Neutrophils % 90.1 % (38.7-73.9); Platelet Count 332 T/CUMM (130-400); Red Cell Distribution Width 15.8 % (9.3-17.3); White Blood Count 9.8 T/CUMM (4-12)
[2022-02-03 16:27] LABS: Basophilic Stippling Slight; Lymphocytes 5 % (20-55); Total Cells Counted 100
[2022-02-03 16:28] LABS: Microcytosis 1+; Platelet Estimate Normal
[2022-02-03 16:34] LABS: Albumin 2.5 G/DL (3.4-5.0); Bilirubin,Total 0.6 MG/DL (0.20-1.00); Calcium 8.7 MG/DL (8.5-10.1); Osmolality,Calculated 287.7 MOS/KG (273-304); Potassium 4.2 MMOL/L (3.5-5.1); Total Protein 6.5 G/DL (6.4-8.2)
[2022-02-03] MEDS ORDERED: cefTRIAXone 1,000 MG in SODIUM CHLORIDE 0.9% 100 ML IV STA (17:12)
[2022-02-03] MEDS ORDERED: GLUCAGON 1 MG VIAL IM PRN (17:52)
[2022-02-03] MEDS ORDERED: DEXTROSE 10% 250 ML BAG IV PRN (17:52)
[2022-02-03] MEDS ORDERED: ONDANSETRON 4 MG/2 ML VIAL IV PRN (17:52)
[2022-02-03] MEDS ORDERED: ENOXAPARIN 30 MG/0.3 ML SYRINGE SUBCUT SCH (18:30)
[2022-02-03] MEDS: cefTRIAXone 2,000 MG in SODIUM CHLORIDE 0.9% 100 ML IV SCH (18:42)
[2022-02-03] MEDS: ALBUTEROL 2.5 MG/3 ML NEB RESP TX SCH (20:01)
[2022-02-03] MEDS: ATORVASTATIN 40 MG TABLET PO SCH (20:42)
[2022-02-03] MEDS: ASPIRIN CHEW 81 MG TABLET PO SCH (20:42)
[2022-02-03] MEDS: INSULIN LISPRO 100 UNIT/ML SUBCUT SCH (20:48)
[2022-02-03] MEDS: DOXYCYCLINE HYCLATE 100 MG CAPSULE PO SCH (23:35)
[2022-02-03] MEDS: SEVELAMER CARBONATE 800 MG TABLET PO SCH (23:35)
[2022-02-03] MEDS: ISOSORBIDE DINITRATE 10 MG TABLET PO SCH (23:35)
[2022-02-03] MEDS: buPROPion SR 150 MG TABLET PO SCH (23:35)
[2022-02-04] MEDS: ALBUTEROL 2.5 MG/3 ML NEB RESP TX SCH ×4 (00:36→19:46)
[2022-02-04 05:34] LABS: Eosinophils # 0.1 10*3/uL (0.0-0.87); Eosinophils % 0.7 % (0.00-10.9); Hemoglobin 7.5 GM/DL (12.0-16.0); Immature Granulocytes Absolute 0.08 #; Lymphocytes # 0.9 10*3/uL (1.4-4.0); Lymphocytes % 10.9 % (21.3-54.2); Mean Corpuscular Volume 93.3 FL (87-102); Mean Platelet Volume 9.9 FL (9.6-12.0); Monocytes # 0.7 10*3/uL (0.11-0.8); Monocytes % 9.2 % (1.7-12.7); NRBC # 0.02 10*3/uL; Neutrophils % 78.2 % (38.7-73.9); Platelet Count 306 T/CUMM (130-400); Red Blood Count 2.68 MC/CUMM (3.8-5.5); Red Cell Distribution Width 15.8 % (9.3-17.3); White Blood Count 8.1 T/CUMM (4-12)
[2022-02-04 06:06] LABS: Calcium 8.6 MG/DL (8.5-10.1); Osmolality,Calculated 286.5 MOS/KG (273-304); Potassium 4.1 MMOL/L (3.5-5.1)
[2022-02-04] MEDS: ISOSORBIDE DINITRATE 10 MG TABLET PO SCH ×3 (06:14→22:09)
[2022-02-04] MEDS: LEVOTHYROXINE 100 MCG TABLET PO SCH (06:14)
[2022-02-04] MEDS: SEVELAMER CARBONATE 800 MG TABLET PO SCH ×3 (06:15→22:09)
[2022-02-04] MEDS: PANTOPRAZOLE 40 MG TABLET PO SCH (06:15)
[2022-02-04] MEDS: GABAPENTIN 100 MG CAPSULE PO SCH ×2 (06:15→16:56)
[2022-02-04] MEDS ORDERED: AZITHROMYCIN 250 MG TABLET PO SCH (09:00)
[2022-02-04] MEDS: DOXYCYCLINE HYCLATE 100 MG CAPSULE PO SCH ×2 (10:22→22:09)
[2022-02-04] MEDS: INSULIN LISPRO 100 UNIT/ML SUBCUT SCH ×4 (10:23→22:10)
[2022-02-04] MEDS: HEPARIN 5,000 UNIT/1 ML VIAL SUBCUT SCH ×2 (14:05→23:25)
[2022-02-04] MEDS ORDERED: ESCITALOPRAM 10 MG TABLET PO SCH (17:00)
[2022-02-04] MEDS: cefTRIAXone 2,000 MG in SODIUM CHLORIDE 0.9% 100 ML IV SCH (17:30)
[2022-02-04] MEDS: buPROPion SR 150 MG TABLET PO SCH (22:09)
[2022-02-04] MEDS: ATORVASTATIN 40 MG TABLET PO SCH (22:09)
[2022-02-04] MEDS: ASPIRIN CHEW 81 MG TABLET PO SCH (22:09)
[2022-02-05] MEDS: ALBUTEROL 2.5 MG/3 ML NEB RESP TX SCH ×3 (00:30→12:15)
[2022-02-05 05:31] LABS: Eosinophils # 0.2 10*3/uL (0.0-0.87); Eosinophils % 2.6 % (0.00-10.9); Hematocrit 23.4 VOL% (35.7-47.0); Hemoglobin 7.1 GM/DL (12.0-16.0); Immature Granulocytes Absolute 0.07 #; Lymphocytes # 1.2 10*3/uL (1.4-4.0); Lymphocytes % 16.8 % (21.3-54.2); Mean Corpuscular HGB Conc 30.3 GM/DL (32-36); Mean Corpuscular Volume 93.6 FL (87-102); Mean Platelet Volume 9.6 FL (9.6-12.0); Monocytes # 0.9 10*3/uL (0.11-0.8); Monocytes % 13.4 % (1.7-12.7); Neutrophils % 66.2 % (38.7-73.9); Platelet Count 276 T/CUMM (130-400)
[2022-02-05 05:47] LABS: Calcium 8.5 MG/DL (8.5-10.1); Osmolality,Calculated 283.4 MOS/KG (273-304); Potassium 4.6 MMOL/L (3.5-5.1)
[2022-02-05] MEDS: LEVOTHYROXINE 100 MCG TABLET PO SCH (06:49)
[2022-02-05] MEDS: PANTOPRAZOLE 40 MG TABLET PO SCH (06:49)
[2022-02-05] MEDS: SEVELAMER CARBONATE 800 MG TABLET PO SCH (06:49)
[2022-02-05] MEDS: ISOSORBIDE DINITRATE 10 MG TABLET PO SCH (06:49)
[2022-02-05] MEDS: GABAPENTIN 100 MG CAPSULE PO SCH (06:49)
[2022-02-05] MEDS: INSULIN LISPRO 100 UNIT/ML SUBCUT SCH ×2 (08:13→13:20)
[2022-02-05] MEDS ORDERED: SODIUM CHLORIDE 0.9% 1,000 ML IV PRN (08:17)
[2022-02-05] MEDS ORDERED: HEPARIN 10,000 UNIT/10 ML VIAL IV SCH (10:00)
[2022-02-05] MEDS: HEPARIN 5,000 UNIT/1 ML VIAL SUBCUT SCH (13:44)
[2022-02-05] MEDS: DOXYCYCLINE HYCLATE 100 MG CAPSULE PO SCH (13:44)
[2022-02-05 13:45] LABS: Hematocrit 26.7 VOL% (35.7-47.0); Hemoglobin 8.3 GM/DL (12.0-16.0)
[2022-02-05 16:25] VITALS: BP 170/77
== END 2022-02-05 15:49 | DRG 139 ==
LOC: EDBD → EDUNIT# → N.ED 15:05 → N.EDINP 17:52 → SUATTDRO 17:52 → N.TELES 02-04 00:39
PROVIDERS: ADMIT Emergency Medicine; ATTEND Internal Medicine

== ENCOUNTER 2022-02-13 09:48 | Inpatient (IN) ==
[2022-02-13 10:29] LABS: Eosinophils % 0.4 % (0.00-10.9); Hematocrit 22.5 VOL% (35.7-47.0); Hemoglobin 6.7 GM/DL (12.0-16.0); Immature Granulocytes % 0.8 %; Immature Granulocytes Absolute 0.04 #; Lymphocytes # 0.1 10*3/uL (1.4-4.0); Lymphocytes % 2.5 % (21.3-54.2); Mean Corpuscular HGB Conc 29.8 GM/DL (32-36); Mean Corpuscular Volume 95.3 FL (87-102); Mean Platelet Volume 9.2 FL (9.6-12.0); Monocytes # 0.3 10*3/uL (0.11-0.8); Monocytes % 6.3 % (1.7-12.7); Platelet Count 157 T/CUMM (130-400); Red Blood Count 2.36 MC/CUMM (3.8-5.5); Red Cell Distribution Width 18.1 % (9.3-17.3); White Blood Count 4.8 T/CUMM (4-12)
[2022-02-13 10:46] LABS: Hypochromia 1+
[2022-02-13 10:47] LABS: Microcytosis Slight; Platelet Estimate Adequate
[2022-02-13 10:54] LABS: Albumin 2.5 G/DL (3.4-5.0); Bilirubin,Total 0.6 MG/DL (0.20-1.00); Potassium 4.5 MMOL/L (3.5-5.1); Total Protein 6.5 G/DL (6.4-8.2)
[2022-02-13] MEDS ORDERED: ACETAMINOPHEN 500 MG TABLET PO STA (10:58)
[2022-02-13] MEDS ORDERED: cefTRIAXone 1,000 MG in SODIUM CHLORIDE 0.9% 100 ML IV STA (11:05)
[2022-02-13 11:16] LABS: Mucus,Urine Occasional /LPF (Occasional); RBC,Urine 51 /HPF (0-4); Squamous Epithelial Cell,Urine Occasional /HPF (0-10)
[2022-02-13 11:17] LABS: Urine Appearance Cloudy (Clear); Urine Color Yellow (Yellow); Urine pH 7.5 (4.5-8.0)
[2022-02-13 11:18] LABS: Bilirubin,Urine Negative (Negative); Blood, Urine Trace mg/dL (Negative); Glucose,Urine (UA) 100 mg/dL (Negative); Ketones,Urine Negative (Negative); Nitrite,Urine Negative (Negative); Protein,Urine >=300 mg/dL (Negative); Urine Urobilinogen 0.2 eU/dL (<2.0)
[2022-02-13] MEDS ORDERED: ALUMINUM/MAGNES/SIMETH MAX STR 30 ML UDCUP PO PRN (12:14)
[2022-02-13] MEDS ORDERED: GLUCAGON 1 MG VIAL IM PRN (12:14)
[2022-02-13] MEDS ORDERED: ONDANSETRON 4 MG/2 ML VIAL IV PRN (12:14)
[2022-02-13] MEDS ORDERED: SODIUM CHLORIDE 0.9% 1,000 ML IV PRN (12:21)
[2022-02-13] MEDS ORDERED: CLINDAMYCIN INJ 600 MG/50 ML PREMIX IV SCH (13:00)
[2022-02-13 13:14] LABS: Hematocrit 21.7 VOL% (35.7-47.0); Hemoglobin 6.6 GM/DL (12.0-16.0)
[2022-02-13] MEDS: ALBUTEROL/IPRATROPIUM 3 ML NEB RESP TX SCH ×3 (13:38→23:00)
[2022-02-13] MEDS: ISOSORBIDE DINITRATE 10 MG TABLET PO SCH ×2 (15:16→21:05)
[2022-02-13] MEDS: AZITHROMYCIN INJ 500 MG in SODIUM CHLORIDE 0.9% 250 ML IV SCH (15:17)
[2022-02-13] MEDS: SEVELAMER CARBONATE 800 MG TABLET PO SCH (17:26)
[2022-02-13] MEDS: INSULIN LISPRO 100 UNIT/ML SUBCUT SCH ×2 (18:38→21:05)
[2022-02-13] MEDS: metroNIDAZOLE INJ 500 MG/100 ML PREMIX IV SCH (19:19)
[2022-02-13] MEDS: METOPROLOL TARTRATE 25 MG TABLET PO SCH (21:05)
[2022-02-13] MEDS: AMIODARONE 200 MG TABLET PO SCH (21:05)
[2022-02-13] MEDS: traZODone 50 MG TABLET PO SCH (21:05)
[2022-02-13] MEDS: GABAPENTIN 100 MG CAPSULE PO SCH (21:05)
[2022-02-13] MEDS: METOCLOPRAMIDE 5 MG TABLET PO SCH (21:05)
[2022-02-13] MEDS: ASPIRIN CHEW 81 MG TABLET PO SCH (21:05)
[2022-02-13] MEDS: buPROPion SR 150 MG TABLET PO SCH (21:05)
[2022-02-13] MEDS: ATORVASTATIN 40 MG TABLET PO SCH (21:05)
[2022-02-14] MEDS: metroNIDAZOLE INJ 500 MG/100 ML PREMIX IV SCH ×3 (03:00→16:20)
[2022-02-14] MEDS: ALBUTEROL/IPRATROPIUM 3 ML NEB RESP TX SCH ×6 (03:40→23:00)
[2022-02-14] MEDS: LEVOTHYROXINE 100 MCG TABLET PO SCH (06:05)
[2022-02-14 06:18] LABS: Eosinophils % 0.4 % (0.00-10.9); Immature Granulocytes % 0.8 %; Immature Granulocytes Absolute 0.02 #; Lymphocytes # 0.2 10*3/uL (1.4-4.0); Mean Platelet Volume 9.3 FL (9.6-12.0); Monocytes # 0.3 10*3/uL (0.11-0.8); Monocytes % 11.6 % (1.7-12.7); Neutrophils % 79.2 % (38.7-73.9); Platelet Count 120 T/CUMM (130-400); Red Cell Distribution Width 17.8 % (9.3-17.3); White Blood Count 2.5 T/CUMM (4-12)
[2022-02-14 06:23] LABS: Hemoglobin 5.7 GM/DL (12.0-16.0)
[2022-02-14 06:42] LABS: Albumin 2.3 G/DL (3.4-5.0); Bilirubin,Total 0.4 MG/DL (0.20-1.00); Calcium 9.3 MG/DL (8.5-10.1); Osmolality,Calculated 281.1 MOS/KG (273-304); Potassium 4.6 MMOL/L (3.5-5.1); Total Protein 6.1 G/DL (6.4-8.2)
[2022-02-14] MEDS: ISOSORBIDE DINITRATE 10 MG TABLET PO SCH ×3 (08:06→20:12)
[2022-02-14] MEDS: GABAPENTIN 100 MG CAPSULE PO SCH ×2 (08:06→20:11)
[2022-02-14] MEDS: SEVELAMER CARBONATE 800 MG TABLET PO SCH ×3 (08:06→16:20)
[2022-02-14] MEDS: ESCITALOPRAM 10 MG TABLET PO SCH (08:07)
[2022-02-14] MEDS: METOCLOPRAMIDE 5 MG TABLET PO SCH ×2 (08:07→20:12)
[2022-02-14] MEDS: AMIODARONE 200 MG TABLET PO SCH ×2 (08:07→20:11)
[2022-02-14] MEDS: PANTOPRAZOLE 40 MG TABLET PO SCH (08:08)
[2022-02-14] MEDS: METOPROLOL TARTRATE 25 MG TABLET PO SCH ×2 (08:08→20:12)
[2022-02-14] MEDS: INSULIN LISPRO 100 UNIT/ML SUBCUT SCH ×4 (08:24→21:14)
[2022-02-14 12:12] LABS: Hematocrit 29.3 VOL% (35.7-47.0); Hemoglobin 8.9 GM/DL (12.0-16.0)
[2022-02-14] MEDS ORDERED: cefTRIAXone 2,000 MG in SODIUM CHLORIDE 0.9% 100 ML IV SCH (12:30)
[2022-02-14] MEDS ORDERED: HEPARIN 10,000 UNIT/10 ML VIAL IV SCH (13:00)
[2022-02-14] MEDS: AZITHROMYCIN INJ 500 MG in SODIUM CHLORIDE 0.9% 250 ML IV SCH (14:30)
[2022-02-14] MEDS: ASPIRIN CHEW 81 MG TABLET PO SCH (20:11)
[2022-02-14] MEDS: ATORVASTATIN 40 MG TABLET PO SCH (20:11)
[2022-02-14] MEDS: buPROPion SR 150 MG TABLET PO SCH (20:12)
[2022-02-14] MEDS: traZODone 50 MG TABLET PO SCH (20:12)
[2022-02-14] MEDS ORDERED: MORPHINE 2 MG/1 ML SYRINGE IV ONE (20:31)
[2022-02-14] MEDS ORDERED: ALBUTEROL 1.25 MG/3 ML NEB RESP TX ONE (20:43)
[2022-02-14] MEDS ORDERED: FUROSEMIDE 40 MG/4 ML VIAL IV ONE (20:46)
[2022-02-15] MEDS: metroNIDAZOLE INJ 500 MG/100 ML PREMIX IV SCH ×2 (00:05→09:25)
[2022-02-15] MEDS: ALBUTEROL/IPRATROPIUM 3 ML NEB RESP TX SCH ×6 (03:05→23:00)
[2022-02-15] MEDS: LEVOTHYROXINE 100 MCG TABLET PO SCH (05:38)
[2022-02-15] MEDS: INSULIN LISPRO 100 UNIT/ML SUBCUT SCH ×4 (08:19→20:37)
[2022-02-15] MEDS: ESCITALOPRAM 10 MG TABLET PO SCH (09:25)
[2022-02-15] MEDS: SEVELAMER CARBONATE 800 MG TABLET PO SCH ×3 (09:25→17:37)
[2022-02-15] MEDS: GABAPENTIN 100 MG CAPSULE PO SCH ×2 (09:25→20:36)
[2022-02-15] MEDS: ISOSORBIDE DINITRATE 10 MG TABLET PO SCH ×3 (09:25→20:35)
[2022-02-15] MEDS: METOCLOPRAMIDE 5 MG TABLET PO SCH ×2 (09:25→20:36)
[2022-02-15] MEDS: PANTOPRAZOLE 40 MG TABLET PO SCH (09:25)
[2022-02-15] MEDS: METOPROLOL TARTRATE 25 MG TABLET PO SCH ×2 (09:25→20:36)
[2022-02-15] MEDS: AMIODARONE 200 MG TABLET PO SCH ×2 (09:25→20:35)
[2022-02-15] MEDS: PIPERACILLIN/TAZOBACTAM 3,375 MG in SODIUM CHLORIDE 0.9% 100 ML IV SCH (11:41)
[2022-02-15 15:31] LABS: Eosinophils % 1.3 % (0.00-10.9); Hematocrit 26.8 VOL% (35.7-47.0); Hemoglobin 8.2 GM/DL (12.0-16.0); Immature Granulocytes Absolute 0.03 #; Lymphocytes # 0.3 10*3/uL (1.4-4.0); Lymphocytes % 9.8 % (21.3-54.2); Mean Corpuscular HGB Conc 30.6 GM/DL (32-36); Mean Corpuscular Volume 90.8 FL (87-102); Mean Platelet Volume 10.4 FL (9.6-12.0); Monocytes # 0.3 10*3/uL (0.11-0.8); Monocytes % 8.9 % (1.7-12.7); Platelet Count 131 T/CUMM (130-400); Red Blood Count 2.95 MC/CUMM (3.8-5.5); Red Cell Distribution Width 19.5 % (9.3-17.3); White Blood Count 3.1 T/CUMM (4-12)
[2022-02-15 15:56] LABS: Albumin 2.3 G/DL (3.4-5.0); Calcium 8.2 MG/DL (8.5-10.1); Osmolality,Calculated 279.1 MOS/KG (273-304); Phosphorous 4.2 MG/DL (2.5-4.9); Potassium 4.5 MMOL/L (3.5-5.1)
[2022-02-15] MEDS: buPROPion SR 150 MG TABLET PO SCH (20:36)
[2022-02-15] MEDS: ASPIRIN CHEW 81 MG TABLET PO SCH (20:36)
[2022-02-15] MEDS: traZODone 50 MG TABLET PO SCH (20:36)
[2022-02-15] MEDS: ATORVASTATIN 40 MG TABLET PO SCH (20:36)
[2022-02-16] MEDS: PIPERACILLIN/TAZOBACTAM 3,375 MG in SODIUM CHLORIDE 0.9% 100 ML IV SCH ×2 (00:45→12:28)
[2022-02-16] MEDS: ALBUTEROL/IPRATROPIUM 3 ML NEB RESP TX SCH ×6 (03:20→23:34)
[2022-02-16] MEDS: LEVOTHYROXINE 100 MCG TABLET PO SCH (05:43)
[2022-02-16 05:46] LABS: Eosinophils # 0.1 10*3/uL (0.0-0.87); Eosinophils % 3.4 % (0.00-10.9); Hematocrit 28.9 VOL% (35.7-47.0); Hemoglobin 8.7 GM/DL (12.0-16.0); Immature Granulocytes % 0.9 %; Immature Granulocytes Absolute 0.02 #; Lymphocytes # 0.3 10*3/uL (1.4-4.0); Lymphocytes % 12.9 % (21.3-54.2); Mean Corpuscular HGB Conc 30.1 GM/DL (32-36); Mean Corpuscular Volume 90.9 FL (87-102); Mean Platelet Volume 9.9 FL (9.6-12.0); Monocytes # 0.2 10*3/uL (0.11-0.8); Monocytes % 7.8 % (1.7-12.7); Platelet Count 135 T/CUMM (130-400); Red Blood Count 3.18 MC/CUMM (3.8-5.5); White Blood Count 2.3 T/CUMM (4-12)
[2022-02-16 06:09] LABS: Albumin 2.4 G/DL (3.4-5.0); Calcium 8.8 MG/DL (8.5-10.1); Osmolality,Calculated 281.1 MOS/KG (273-304); Phosphorous 5.1 MG/DL (2.5-4.9); Potassium 4.3 MMOL/L (3.5-5.1)
[2022-02-16] MEDS ORDERED: HEPARIN 5,000 UNIT/1 ML VIAL SUBCUT SCH (09:00)
[2022-02-16] MEDS: INSULIN LISPRO 100 UNIT/ML SUBCUT SCH ×4 (09:40→20:44)
[2022-02-16] MEDS: GABAPENTIN 100 MG CAPSULE PO SCH ×2 (09:41→20:43)
[2022-02-16] MEDS: METOCLOPRAMIDE 5 MG TABLET PO SCH ×2 (09:41→20:43)
[2022-02-16] MEDS: PANTOPRAZOLE 40 MG TABLET PO SCH (09:41)
[2022-02-16] MEDS: SEVELAMER CARBONATE 800 MG TABLET PO SCH ×3 (09:41→17:24)
[2022-02-16] MEDS: ESCITALOPRAM 10 MG TABLET PO SCH (09:41)
[2022-02-16] MEDS: ISOSORBIDE DINITRATE 10 MG TABLET PO SCH ×3 (09:41→20:43)
[2022-02-16] MEDS: AMIODARONE 200 MG TABLET PO SCH ×2 (09:41→20:42)
[2022-02-16] MEDS: METOPROLOL TARTRATE 25 MG TABLET PO SCH ×2 (09:47→20:43)
[2022-02-16 12:16] LABS: PT Patient Result 11.1 SECS (10.5-12.0)
[2022-02-16 12:23] LABS: Albumin 2.4 G/DL (3.4-5.0); Total Protein 6.5 G/DL (6.4-8.2)
[2022-02-16] MEDS: traZODone 50 MG TABLET PO SCH (20:42)
[2022-02-16] MEDS: ATORVASTATIN 40 MG TABLET PO SCH (20:42)
[2022-02-16] MEDS: ERGOCALCIFEROL 50,000 UNIT CAPSULE PO SCH (20:43)
[2022-02-16] MEDS: buPROPion SR 150 MG TABLET PO SCH (20:43)
[2022-02-17] MEDS: PIPERACILLIN/TAZOBACTAM 3,375 MG in SODIUM CHLORIDE 0.9% 100 ML IV SCH ×2 (01:21→16:29)
[2022-02-17] MEDS: MORPHINE 2 MG/1 ML SYRINGE IV PRN (01:22)
[2022-02-17] MEDS: ALBUTEROL/IPRATROPIUM 3 ML NEB RESP TX SCH ×6 (03:35→23:10)
[2022-02-17] MEDS: LEVOTHYROXINE 100 MCG TABLET PO SCH (05:30)
[2022-02-17 05:40] LABS: Eosinophils % 1.2 % (0.00-10.9); Hematocrit 26.7 VOL% (35.7-47.0); Immature Granulocytes % 0.6 %; Immature Granulocytes Absolute 0.01 #; Lymphocytes # 0.2 10*3/uL (1.4-4.0); Lymphocytes % 12.5 % (21.3-54.2); Mean Corpuscular Volume 91.1 FL (87-102); Mean Platelet Volume 10.4 FL (9.6-12.0); Monocytes # 0.2 10*3/uL (0.11-0.8); Monocytes % 10.7 % (1.7-12.7); Platelet Count 136 T/CUMM (130-400); Red Blood Count 2.93 MC/CUMM (3.8-5.5); Red Cell Distribution Width 18.8 % (9.3-17.3); White Blood Count 1.7 T/CUMM (4-12)
[2022-02-17 05:53] LABS: Albumin 2.3 G/DL (3.4-5.0); Calcium 8.4 MG/DL (8.5-10.1); Osmolality,Calculated 283.1 MOS/KG (273-304); Phosphorous 5.2 MG/DL (2.5-4.9); Potassium 5.1 MMOL/L (3.5-5.1)
[2022-02-17 06:14] LABS: Eosinophils 2 % (0-10); Hypochromia Slight; Lymphocytes 13 % (20-55); Platelet Estimate Normal; Total Cells Counted 100
[2022-02-17] MEDS: DEXTROSE 10% 250 ML BAG IV PRN (06:15)
[2022-02-17 09:28] LABS: Arterial Base Excess iSTAT -1 MMOL/L (-2.5-2.5); Arterial Bicarbonate iSTAT 25.1 MMOL/L (20-26); Arterial O2 Saturation iSTAT 91 % (95-100); Arterial PCO2 iSTAT 49 MM HG (35-48); Arterial PO2 iSTAT 68 MM HG (80-95); Arterial Total CO2 iSTAT 27 MMO/L (23-27); Arterial pH iSTAT 7.315 (7.35-7.45)
[2022-02-17] MEDS: INSULIN LISPRO 100 UNIT/ML SUBCUT SCH ×4 (09:31→22:03)
[2022-02-17] MEDS: SEVELAMER CARBONATE 800 MG TABLET PO SCH ×3 (09:32→16:30)
[2022-02-17] MEDS: GABAPENTIN 100 MG CAPSULE PO SCH ×2 (10:00→20:17)
[2022-02-17] MEDS: ISOSORBIDE DINITRATE 10 MG TABLET PO SCH ×3 (10:00→20:16)
[2022-02-17] MEDS: METOCLOPRAMIDE 5 MG TABLET PO SCH ×2 (10:00→22:13)
[2022-02-17] MEDS: METOPROLOL TARTRATE 25 MG TABLET PO SCH ×2 (10:00→20:15)
[2022-02-17] MEDS: AMIODARONE 200 MG TABLET PO SCH ×2 (10:01→20:16)
[2022-02-17] MEDS: ESCITALOPRAM 10 MG TABLET PO SCH (10:01)
[2022-02-17] MEDS: PANTOPRAZOLE 40 MG TABLET PO SCH (10:01)
[2022-02-17] MEDS ORDERED: HEPARIN 10,000 UNIT/10 ML VIAL IV PRN (15:30)
[2022-02-17] MEDS ORDERED: VANCOMYCIN INJ 750 MG in SODIUM CHLORIDE 0.9% 250 ML IV PRN (18:00)
[2022-02-17 19:01] LABS: Arterial Base Excess iSTAT 2 MMOL/L (-2.5-2.5); Arterial Bicarbonate iSTAT 27.7 MMOL/L (20-26); Arterial O2 Saturation iSTAT 99 % (95-100); Arterial PCO2 iSTAT 50 MM HG (35-48); Arterial PO2 iSTAT 133 MM HG (80-95); Arterial Total CO2 iSTAT 29 MMO/L (23-27); Arterial pH iSTAT 7.351 (7.35-7.45)
[2022-02-17] MEDS ORDERED: VANCOMYCIN INJ 2,500 MG in SODIUM CHLORIDE 0.9% 500 ML IV ONE (19:30)
[2022-02-17] MEDS ORDERED: hydrALAZINE 20 MG/1 ML VIAL IV PRN (19:53)
[2022-02-17] MEDS: buPROPion SR 150 MG TABLET PO SCH (20:16)
[2022-02-17] MEDS: DOCUSATE SODIUM 100 MG CAPSULE PO PRN (20:16)
[2022-02-17] MEDS: ATORVASTATIN 40 MG TABLET PO SCH (20:16)
[2022-02-17] MEDS: traZODone 50 MG TABLET PO SCH (20:16)
[2022-02-17] MEDS ORDERED: FUROSEMIDE 40 MG/4 ML VIAL IV ONE (20:30)
[2022-02-17 21:49] LABS: ABG Base Excess 0.5 MMOL/L (-2.5-2.5); ABG HCO3 24.9 MMOL/L (20-26); ABG PCO2 46.2 MM HG (35-48); ABG PH 7.361 (7.35-7.45); ABG TCO2 24.4 MMOL/L (23-27)
[2022-02-17] MEDS: ACETAMINOPHEN 325 MG TABLET PO PRN (23:05)
[2022-02-18] MEDS: MEROPENEM 500 MG in SODIUM CHLORIDE 0.9% 100 ML IV SCH ×2 (00:02→20:12)
[2022-02-18] MEDS: ALBUTEROL/IPRATROPIUM 3 ML NEB RESP TX SCH ×6 (03:39→23:40)
[2022-02-18 06:00] LABS: Eosinophils % 0.4 % (0.00-10.9); Hemoglobin 8.3 GM/DL (12.0-16.0); Immature Granulocytes % 0.4 %; Immature Granulocytes Absolute 0.01 #; Lymphocytes # 0.3 10*3/uL (1.4-4.0); Lymphocytes % 12.4 % (21.3-54.2); Mean Corpuscular HGB Conc 30.7 GM/DL (32-36); Mean Corpuscular Volume 91.2 FL (87-102); Mean Platelet Volume 9.9 FL (9.6-12.0); Monocytes # 0.2 10*3/uL (0.11-0.8); Monocytes % 8.2 % (1.7-12.7); Neutrophils % 78.6 % (38.7-73.9); Platelet Count 131 T/CUMM (130-400); Red Blood Count 2.96 MC/CUMM (3.8-5.5); Red Cell Distribution Width 18.6 % (9.3-17.3); White Blood Count 2.3 T/CUMM (4-12)
[2022-02-18 06:19] LABS: Calcium 8.5 MG/DL (8.5-10.1); Phosphorous 4.2 MG/DL (2.5-4.9); Potassium 4.3 MMOL/L (3.5-5.1)
[2022-02-18] MEDS: LEVOTHYROXINE 100 MCG TABLET PO SCH (08:04)
[2022-02-18 08:26] LABS: Arterial Base Excess iSTAT 1 MMOL/L (-2.5-2.5); Arterial Bicarbonate iSTAT 27.6 MMOL/L (20-26); Arterial O2 Saturation iSTAT 100 % (95-100); Arterial PCO2 iSTAT 50 MM HG (35-48); Arterial PO2 iSTAT 192 MM HG (80-95); Arterial Total CO2 iSTAT 29 MMO/L (23-27); Arterial pH iSTAT 7.346 (7.35-7.45)
[2022-02-18] MEDS: INSULIN LISPRO 100 UNIT/ML SUBCUT SCH ×4 (08:36→20:34)
[2022-02-18] MEDS: AMIODARONE 200 MG TABLET PO SCH ×2 (09:07→20:12)
[2022-02-18] MEDS: ESCITALOPRAM 10 MG TABLET PO SCH (09:07)
[2022-02-18] MEDS: ISOSORBIDE DINITRATE 10 MG TABLET PO SCH ×3 (09:07→20:12)
[2022-02-18] MEDS: GABAPENTIN 100 MG CAPSULE PO SCH ×2 (09:08→20:12)
[2022-02-18] MEDS: PANTOPRAZOLE 40 MG TABLET PO SCH (09:08)
[2022-02-18] MEDS: METOCLOPRAMIDE 5 MG TABLET PO SCH ×2 (09:08→20:12)
[2022-02-18] MEDS: SEVELAMER CARBONATE 800 MG TABLET PO SCH ×3 (09:08→18:39)
[2022-02-18] MEDS: METOPROLOL TARTRATE 25 MG TABLET PO SCH ×2 (09:21→20:12)
[2022-02-18 12:19] LABS: Lymphocytes,Pleural Fluid 87 %; Monocytes,Pleural Fluid 7 %; Neutrophils,Pleural Fluid 6 %
[2022-02-18 12:20] LABS: RBC,Pleural Fluid 24933 T/CUMM
[2022-02-18 12:22] LABS: Glucose,Pleural Fluid 54 MG/DL; LDH,Body Fluid 103 U/L; Total Protein,Body Fluid 2.3 G/DL
[2022-02-18] MEDS: DEXTROSE 10% 250 ML BAG IV PRN ×2 (13:41→20:25)
[2022-02-18] MEDS: traZODone 50 MG TABLET PO SCH (20:12)
[2022-02-18] MEDS: buPROPion SR 150 MG TABLET PO SCH (20:12)
[2022-02-18] MEDS: ATORVASTATIN 40 MG TABLET PO SCH (20:12)
[2022-02-19] MEDS: DEXTROSE 10% 250 ML BAG IV PRN (00:30)
[2022-02-19] MEDS: guaiFENesin 200 MG/10 ML UDCUP PO PRN ×2 (02:23→21:47)
[2022-02-19] MEDS: ALBUTEROL/IPRATROPIUM 3 ML NEB RESP TX SCH ×6 (04:10→23:50)
[2022-02-19 04:32] LABS: Basophils % 0.2 % (0.0-0.8); Eosinophils # 0.1 10*3/uL (0.0-0.87); Eosinophils % 1.4 % (0.00-10.9); Hematocrit 26.5 VOL% (35.7-47.0); Immature Granulocytes % 0.2 %; Immature Granulocytes Absolute 0.01 #; Lymphocytes # 0.4 10*3/uL (1.4-4.0); Lymphocytes % 9.4 % (21.3-54.2); Mean Corpuscular HGB Conc 30.2 GM/DL (32-36); Mean Corpuscular Volume 90.4 FL (87-102); Mean Platelet Volume 10.2 FL (9.6-12.0); Monocytes # 0.4 10*3/uL (0.11-0.8); Monocytes % 8.9 % (1.7-12.7); Neutrophils % 79.9 % (38.7-73.9); Platelet Count 160 T/CUMM (130-400); Red Blood Count 2.93 MC/CUMM (3.8-5.5); Red Cell Distribution Width 18.5 % (9.3-17.3); White Blood Count 4.3 T/CUMM (4-12)
[2022-02-19 04:52] LABS: Calcium 8.4 MG/DL (8.5-10.1); Osmolality,Calculated 281.1 MOS/KG (273-304); Potassium 4.3 MMOL/L (3.5-5.1)
[2022-02-19] MEDS: LEVOTHYROXINE 100 MCG TABLET PO SCH (05:58)
[2022-02-19 09:29] LABS: Alanine Aminotransferase 18 U/L (13-56); Albumin 2.1 G/DL (3.4-5.0); Alkaline Phosphatase 65 U/L (45-117); Aspartate Amino Transferase 23 U/L (0-37); Bilirubin,Total < 0.39 MG/DL (0.20-1.00); Blood Urea Nitrogen 44 MG/DL (7-18); Calcium 8.7 MG/DL (8.5-10.1); Carbon Dioxide 25 MMOL/L (21-32); Chloride 102 MMOL/L (98-107); Glucose 68 MG/DL (74-106); Osmolality,Calculated 276.2 MOS/KG (273-304); Potassium 4.7 MMOL/L (3.5-5.1); Sodium 134 MMOL/L (136-145); Total Protein 6.3 G/DL (6.4-8.2)
[2022-02-19] MEDS: ESCITALOPRAM 10 MG TABLET PO SCH (10:05)
[2022-02-19] MEDS: SEVELAMER CARBONATE 800 MG TABLET PO SCH ×3 (10:06→18:46)
[2022-02-19] MEDS: METOPROLOL TARTRATE 25 MG TABLET PO SCH ×2 (10:06→20:40)
[2022-02-19] MEDS: AMIODARONE 200 MG TABLET PO SCH ×2 (10:06→20:40)
[2022-02-19] MEDS: ISOSORBIDE DINITRATE 10 MG TABLET PO SCH ×3 (10:06→20:40)
[2022-02-19] MEDS: METOCLOPRAMIDE 5 MG TABLET PO SCH ×2 (10:06→20:40)
[2022-02-19] MEDS: GABAPENTIN 100 MG CAPSULE PO SCH ×2 (10:07→20:40)
[2022-02-19] MEDS: PANTOPRAZOLE 40 MG TABLET PO SCH (12:09)
[2022-02-19] MEDS: INSULIN LISPRO 100 UNIT/ML SUBCUT SCH ×4 (12:09→21:08)
[2022-02-19] MEDS ORDERED: VANCOMYCIN INJ 750 MG in SODIUM CHLORIDE 0.9% 250 ML IV ONE ×2 (17:00→20:00)
[2022-02-19] MEDS: MEROPENEM 500 MG in SODIUM CHLORIDE 0.9% 100 ML IV SCH (20:30)
[2022-02-19] MEDS: buPROPion SR 150 MG TABLET PO SCH (20:40)
[2022-02-19] MEDS: traZODone 50 MG TABLET PO SCH (20:40)
[2022-02-19] MEDS: ATORVASTATIN 40 MG TABLET PO SCH (20:40)
[2022-02-20] MEDS: ALBUTEROL/IPRATROPIUM 3 ML NEB RESP TX SCH ×6 (03:40→22:31)
[2022-02-20 04:12] LABS: Basophils % 0.2 % (0.0-0.8); Eosinophils # 0.1 10*3/uL (0.0-0.87); Eosinophils % 1.1 % (0.00-10.9); Hemoglobin 8.4 GM/DL (12.0-16.0); Immature Granulocytes % 0.4 %; Immature Granulocytes Absolute 0.02 #; Lymphocytes # 0.5 10*3/uL (1.4-4.0); Lymphocytes % 10.7 % (21.3-54.2); Mean Corpuscular Volume 90.6 FL (87-102); Mean Platelet Volume 9.7 FL (9.6-12.0); Monocytes # 0.4 10*3/uL (0.11-0.8); Monocytes % 8.8 % (1.7-12.7); Neutrophils % 78.8 % (38.7-73.9); Platelet Count 181 T/CUMM (130-400); Red Blood Count 3.09 MC/CUMM (3.8-5.5); Red Cell Distribution Width 18.6 % (9.3-17.3); White Blood Count 4.8 T/CUMM (4-12)
[2022-02-20 04:46] LABS: Albumin 1.9 G/DL (3.4-5.0); Bilirubin,Total 0.4 MG/DL (0.20-1.00); Calcium 8.3 MG/DL (8.5-10.1); Osmolality,Calculated 276.8 MOS/KG (273-304); Potassium 3.5 MMOL/L (3.5-5.1)
[2022-02-20] MEDS: LEVOTHYROXINE 100 MCG TABLET PO SCH (05:40)
[2022-02-20] MEDS: ALBUTEROL 1.25 MG/3 ML NEB RESP TX PRN (07:26)
[2022-02-20] MEDS: INSULIN LISPRO 100 UNIT/ML SUBCUT SCH ×4 (09:38→20:27)
[2022-02-20] MEDS: SEVELAMER CARBONATE 800 MG TABLET PO SCH ×3 (09:47→16:59)
[2022-02-20] MEDS: GABAPENTIN 100 MG CAPSULE PO SCH ×2 (09:48→20:20)
[2022-02-20] MEDS: PANTOPRAZOLE 40 MG TABLET PO SCH (09:48)
[2022-02-20] MEDS: METOPROLOL TARTRATE 25 MG TABLET PO SCH ×2 (09:48→20:20)
[2022-02-20] MEDS: ESCITALOPRAM 10 MG TABLET PO SCH (09:48)
[2022-02-20] MEDS: AMIODARONE 200 MG TABLET PO SCH ×2 (09:48→20:20)
[2022-02-20] MEDS: METOCLOPRAMIDE 5 MG TABLET PO SCH ×2 (09:48→20:20)
[2022-02-20] MEDS: ISOSORBIDE DINITRATE 10 MG TABLET PO SCH ×3 (09:49→20:20)
[2022-02-20] MEDS: MENTHOL/ZINC OXIDE OINT 71 GM JAR TOP SCH ×2 (16:12→20:20)
[2022-02-20] MEDS: buPROPion SR 150 MG TABLET PO SCH (20:20)
[2022-02-20] MEDS: MEROPENEM 500 MG in SODIUM CHLORIDE 0.9% 100 ML IV SCH (20:20)
[2022-02-20] MEDS: traZODone 50 MG TABLET PO SCH (20:20)
[2022-02-20] MEDS: ATORVASTATIN 40 MG TABLET PO SCH (20:20)
[2022-02-21] MEDS: ALBUTEROL/IPRATROPIUM 3 ML NEB RESP TX SCH ×6 (03:12→23:38)
[2022-02-21 04:38] LABS: Basophils % 0.2 % (0.0-0.8); Eosinophils # 0.1 10*3/uL (0.0-0.87); Eosinophils % 2.2 % (0.00-10.9); Hematocrit 29.4 VOL% (35.7-47.0); Hemoglobin 8.9 GM/DL (12.0-16.0); Immature Granulocytes % 0.5 %; Immature Granulocytes Absolute 0.02 #; Lymphocytes # 0.5 10*3/uL (1.4-4.0); Lymphocytes % 13.2 % (21.3-54.2); Mean Corpuscular HGB Conc 30.3 GM/DL (32-36); Mean Corpuscular Volume 90.5 FL (87-102); Mean Platelet Volume 9.9 FL (9.6-12.0); Monocytes # 0.4 10*3/uL (0.11-0.8); Monocytes % 10.4 % (1.7-12.7); Neutrophils % 73.5 % (38.7-73.9); Platelet Count 220 T/CUMM (130-400); Red Blood Count 3.25 MC/CUMM (3.8-5.5); Red Cell Distribution Width 18.3 % (9.3-17.3)
[2022-02-21 05:01] LABS: Albumin 1.8 G/DL (3.4-5.0); Bilirubin,Total 0.4 MG/DL (0.20-1.00); Calcium 8.6 MG/DL (8.5-10.1); Osmolality,Calculated 276.1 MOS/KG (273-304); Platelet Estimate Normal; Potassium 3.9 MMOL/L (3.5-5.1)
[2022-02-21 05:02] LABS: Anisocytosis 1+; Burr Cells Few; Tear Drop Cells Few
[2022-02-21] MEDS: LEVOTHYROXINE 100 MCG TABLET PO SCH (05:47)
[2022-02-21] MEDS: INSULIN LISPRO 100 UNIT/ML SUBCUT SCH ×4 (07:37→21:02)
[2022-02-21] MEDS: SEVELAMER CARBONATE 800 MG TABLET PO SCH ×3 (08:00→17:30)
[2022-02-21] MEDS: ISOSORBIDE DINITRATE 10 MG TABLET PO SCH ×3 (09:27→20:50)
[2022-02-21] MEDS: METOPROLOL TARTRATE 25 MG TABLET PO SCH ×2 (09:27→20:49)
[2022-02-21] MEDS: GABAPENTIN 100 MG CAPSULE PO SCH ×2 (09:27→20:49)
[2022-02-21] MEDS: AMIODARONE 200 MG TABLET PO SCH ×2 (09:27→20:50)
[2022-02-21] MEDS: ESCITALOPRAM 10 MG TABLET PO SCH (09:27)
[2022-02-21] MEDS: MENTHOL/ZINC OXIDE OINT 71 GM JAR TOP SCH ×2 (09:27→20:50)
[2022-02-21] MEDS: PANTOPRAZOLE 40 MG TABLET PO SCH (09:28)
[2022-02-21] MEDS: METOCLOPRAMIDE 5 MG TABLET PO SCH ×2 (09:28→20:49)
[2022-02-21 14:38] LABS: M. Tuberculosis PCR Result Negative (Negative); M. Tuberculosis PCR Source PLEURAL FLUID
[2022-02-21] MEDS ORDERED: VANCOMYCIN INJ 750 MG in SODIUM CHLORIDE 0.9% 250 ML IV ONE ×2 (17:00→18:30)
[2022-02-21] MEDS: MEROPENEM 500 MG in SODIUM CHLORIDE 0.9% 100 ML IV SCH (20:48)
[2022-02-21] MEDS: ATORVASTATIN 40 MG TABLET PO SCH (20:49)
[2022-02-21] MEDS: traZODone 50 MG TABLET PO SCH (20:49)
[2022-02-21] MEDS: ACETAMINOPHEN 325 MG TABLET PO PRN (20:50)
[2022-02-21] MEDS: DOCUSATE SODIUM 100 MG CAPSULE PO PRN (20:50)
[2022-02-21] MEDS: buPROPion SR 150 MG TABLET PO SCH (20:52)
[2022-02-22] MEDS: ALBUTEROL/IPRATROPIUM 3 ML NEB RESP TX SCH ×6 (03:30→23:20)
[2022-02-22 04:42] LABS: Basophils % 0.2 % (0.0-0.8); Eosinophils # 0.2 10*3/uL (0.0-0.87); Eosinophils % 3.4 % (0.00-10.9); Hematocrit 29.1 VOL% (35.7-47.0); Hemoglobin 8.8 GM/DL (12.0-16.0); Immature Granulocytes % 0.6 %; Immature Granulocytes Absolute 0.03 #; Lymphocytes # 0.6 10*3/uL (1.4-4.0); Lymphocytes % 12.6 % (21.3-54.2); Mean Corpuscular HGB Conc 30.2 GM/DL (32-36); Mean Corpuscular Volume 90.4 FL (87-102); Mean Platelet Volume 9.7 FL (9.6-12.0); Monocytes # 0.5 10*3/uL (0.11-0.8); Monocytes % 10.9 % (1.7-12.7); Neutrophils % 72.3 % (38.7-73.9); Platelet Count 249 T/CUMM (130-400); Red Blood Count 3.22 MC/CUMM (3.8-5.5); Red Cell Distribution Width 18.1 % (9.3-17.3); White Blood Count 4.7 T/CUMM (4-12)
[2022-02-22 05:04] LABS: Alanine Aminotransferase 12 U/L (13-56); Albumin 1.8 G/DL (3.4-5.0); Alkaline Phosphatase 68 U/L (45-117); Aspartate Amino Transferase 15 U/L (0-37); Bilirubin,Total < 0.39 MG/DL (0.20-1.00); Blood Urea Nitrogen 26 MG/DL (7-18); Calcium 8.8 MG/DL (8.5-10.1); Carbon Dioxide 27 MMOL/L (21-32); Chloride 104 MMOL/L (98-107); Glucose 87 MG/DL (74-106); Potassium 3.5 MMOL/L (3.5-5.1); Sodium 136 MMOL/L (136-145); Total Protein 6.1 G/DL (6.4-8.2)
[2022-02-22] MEDS: LEVOTHYROXINE 100 MCG TABLET PO SCH (05:46)
[2022-02-22] MEDS: INSULIN LISPRO 100 UNIT/ML SUBCUT SCH ×4 (08:13→22:02)
[2022-02-22] MEDS: METOCLOPRAMIDE 5 MG TABLET PO SCH ×2 (08:20→21:04)
[2022-02-22] MEDS: PANTOPRAZOLE 40 MG TABLET PO SCH (08:20)
[2022-02-22] MEDS: GABAPENTIN 100 MG CAPSULE PO SCH ×2 (08:20→21:05)
[2022-02-22] MEDS: SEVELAMER CARBONATE 800 MG TABLET PO SCH ×3 (08:20→18:06)
[2022-02-22] MEDS: AMIODARONE 200 MG TABLET PO SCH ×2 (08:20→21:57)
[2022-02-22] MEDS: ISOSORBIDE DINITRATE 10 MG TABLET PO SCH ×3 (08:21→21:05)
[2022-02-22] MEDS: ESCITALOPRAM 10 MG TABLET PO SCH (08:21)
[2022-02-22] MEDS: METOPROLOL TARTRATE 25 MG TABLET PO SCH ×2 (08:23→21:03)
[2022-02-22] MEDS: MENTHOL/ZINC OXIDE OINT 71 GM JAR TOP SCH ×2 (15:38→21:06)
[2022-02-22] MEDS: MEROPENEM 500 MG in SODIUM CHLORIDE 0.9% 100 ML IV SCH (19:02)
[2022-02-22] MEDS: ATORVASTATIN 40 MG TABLET PO SCH (21:05)
[2022-02-22] MEDS: buPROPion SR 150 MG TABLET PO SCH (21:05)
[2022-02-22] MEDS: traZODone 50 MG TABLET PO SCH (21:05)
[2022-02-22] MEDS: MORPHINE 2 MG/1 ML SYRINGE IV PRN (21:10)
[2022-02-22] MEDS ORDERED: NITROGLYCERIN SL 0.4 MG TABLET SL ONE (21:58)
[2022-02-22] MEDS ORDERED: MORPHINE 2 MG/1 ML SYRINGE IV ONE (21:58)
[2022-02-22] MEDS: NITROGLYCERIN SL 0.4 MG TABLET SL PRN ×2 (22:04→22:09)
[2022-02-23 01:15] LABS: Basophils % 0.2 % (0.0-0.8); Eosinophils # 0.1 10*3/uL (0.0-0.87); Eosinophils % 2.4 % (0.00-10.9); Hematocrit 27.8 VOL% (35.7-47.0); Hemoglobin 8.4 GM/DL (12.0-16.0); Immature Granulocytes % 0.9 %; Immature Granulocytes Absolute 0.04 #; Lymphocytes # 0.7 10*3/uL (1.4-4.0); Lymphocytes % 14.1 % (21.3-54.2); Mean Corpuscular HGB Conc 30.2 GM/DL (32-36); Mean Corpuscular Volume 89.7 FL (87-102); Mean Platelet Volume 8.8 FL (9.6-12.0); Monocytes # 0.6 10*3/uL (0.11-0.8); Monocytes % 12.2 % (1.7-12.7); Neutrophils % 70.2 % (38.7-73.9); Platelet Count 260 T/CUMM (130-400); Red Cell Distribution Width 18.3 % (9.3-17.3); White Blood Count 4.6 T/CUMM (4-12)
[2022-02-23 02:25] LABS: Alanine Aminotransferase 12 U/L (13-56); Albumin 1.9 G/DL (3.4-5.0); Alkaline Phosphatase 70 U/L (45-117); Aspartate Amino Transferase 14 U/L (0-37); Bilirubin,Total < 0.39 MG/DL (0.20-1.00); Blood Urea Nitrogen 32 MG/DL (7-18); Calcium 8.5 MG/DL (8.5-10.1); Carbon Dioxide 26 MMOL/L (21-32); Chloride 104 MMOL/L (98-107); Glucose 79 MG/DL (74-106); Sodium 136 MMOL/L (136-145); Total Protein 6.1 G/DL (6.4-8.2)
[2022-02-23] MEDS: ALBUTEROL 1.25 MG/3 ML NEB RESP TX PRN (03:29)
[2022-02-23] MEDS: LEVOTHYROXINE 100 MCG TABLET PO SCH (05:50)
[2022-02-23] MEDS: ALBUTEROL/IPRATROPIUM 3 ML NEB RESP TX SCH ×6 (06:11→23:55)
[2022-02-23] MEDS: SEVELAMER CARBONATE 800 MG TABLET PO SCH ×3 (07:53→17:10)
[2022-02-23] MEDS: INSULIN LISPRO 100 UNIT/ML SUBCUT SCH ×4 (07:53→20:53)
[2022-02-23] MEDS: METOCLOPRAMIDE 5 MG TABLET PO SCH ×2 (08:00→20:52)
[2022-02-23] MEDS: GABAPENTIN 100 MG CAPSULE PO SCH ×2 (08:00→20:51)
[2022-02-23] MEDS: ISOSORBIDE DINITRATE 10 MG TABLET PO SCH ×3 (08:00→20:52)
[2022-02-23] MEDS: ESCITALOPRAM 10 MG TABLET PO SCH (08:00)
[2022-02-23] MEDS: METOPROLOL TARTRATE 25 MG TABLET PO SCH ×2 (08:00→20:53)
[2022-02-23] MEDS: PANTOPRAZOLE 40 MG TABLET PO SCH (08:00)
[2022-02-23] MEDS: AMIODARONE 200 MG TABLET PO SCH ×2 (08:01→20:52)
[2022-02-23] MEDS: MENTHOL/ZINC OXIDE OINT 71 GM JAR TOP SCH ×2 (08:01→20:53)
[2022-02-23] MEDS: traZODone 50 MG TABLET PO SCH (20:51)
[2022-02-23] MEDS: ATORVASTATIN 40 MG TABLET PO SCH (20:51)
[2022-02-23] MEDS: ERGOCALCIFEROL 50,000 UNIT CAPSULE PO SCH (20:51)
[2022-02-23] MEDS: MEROPENEM 500 MG in SODIUM CHLORIDE 0.9% 100 ML IV SCH (20:52)
[2022-02-23] MEDS: buPROPion SR 150 MG TABLET PO SCH (20:52)
[2022-02-23] MEDS: MORPHINE 2 MG/1 ML SYRINGE IV PRN (21:06)
[2022-02-24] MEDS: ALBUTEROL/IPRATROPIUM 3 ML NEB RESP TX SCH ×6 (03:08→23:12)
[2022-02-24 05:32] LABS: Basophils % 0.2 % (0.0-0.8); Eosinophils # 0.1 10*3/uL (0.0-0.87); Hematocrit 27.6 VOL% (35.7-47.0); Hemoglobin 8.5 GM/DL (12.0-16.0); Immature Granulocytes % 1.1 %; Immature Granulocytes Absolute 0.05 #; Lymphocytes # 0.8 10*3/uL (1.4-4.0); Lymphocytes % 18.4 % (21.3-54.2); Mean Corpuscular HGB Conc 30.8 GM/DL (32-36); Mean Corpuscular Volume 89.3 FL (87-102); Mean Platelet Volume 9.3 FL (9.6-12.0); Monocytes # 0.6 10*3/uL (0.11-0.8); Monocytes % 12.7 % (1.7-12.7); Neutrophils % 65.6 % (38.7-73.9); Platelet Count 276 T/CUMM (130-400); Red Blood Count 3.09 MC/CUMM (3.8-5.5); Red Cell Distribution Width 17.9 % (9.3-17.3); White Blood Count 4.6 T/CUMM (4-12)
[2022-02-24] MEDS: LEVOTHYROXINE 100 MCG TABLET PO SCH (05:39)
[2022-02-24 05:52] LABS: Albumin 1.9 G/DL (3.4-5.0); Bilirubin,Total 0.4 MG/DL (0.20-1.00); Calcium 8.8 MG/DL (8.5-10.1); Osmolality,Calculated 278.1 MOS/KG (273-304); Potassium 4.7 MMOL/L (3.5-5.1); Total Protein 6.4 G/DL (6.4-8.2)
[2022-02-24] MEDS: INSULIN LISPRO 100 UNIT/ML SUBCUT SCH ×4 (08:23→20:14)
[2022-02-24] MEDS: SEVELAMER CARBONATE 800 MG TABLET PO SCH ×3 (09:24→16:51)
[2022-02-24] MEDS: METOPROLOL TARTRATE 25 MG TABLET PO SCH ×2 (12:58→21:08)
[2022-02-24] MEDS: GABAPENTIN 100 MG CAPSULE PO SCH ×2 (12:58→21:07)
[2022-02-24] MEDS: ISOSORBIDE DINITRATE 10 MG TABLET PO SCH ×3 (12:58→21:08)
[2022-02-24] MEDS: ESCITALOPRAM 10 MG TABLET PO SCH (12:58)
[2022-02-24] MEDS: AMIODARONE 200 MG TABLET PO SCH ×2 (12:58→21:08)
[2022-02-24] MEDS: MENTHOL/ZINC OXIDE OINT 71 GM JAR TOP SCH ×2 (12:59→21:08)
[2022-02-24] MEDS: PANTOPRAZOLE 40 MG TABLET PO SCH (12:59)
[2022-02-24] MEDS: METOCLOPRAMIDE 5 MG TABLET PO SCH ×2 (13:22→21:08)
[2022-02-24] MEDS ORDERED: VANCOMYCIN INJ 750 MG in SODIUM CHLORIDE 0.9% 250 ML IV ONE (17:00)
[2022-02-24] MEDS: MEROPENEM 500 MG in SODIUM CHLORIDE 0.9% 100 ML IV SCH (18:53)
[2022-02-24] MEDS: traZODone 50 MG TABLET PO SCH (21:08)
[2022-02-24] MEDS: ATORVASTATIN 40 MG TABLET PO SCH (21:08)
[2022-02-24] MEDS: buPROPion SR 150 MG TABLET PO SCH (21:10)
[2022-02-25] MEDS: ALBUTEROL/IPRATROPIUM 3 ML NEB RESP TX SCH ×6 (02:55→23:50)
[2022-02-25] MEDS: ACETAMINOPHEN 325 MG TABLET PO PRN (04:41)
[2022-02-25 05:24] LABS: Basophils % 0.4 % (0.0-0.8); Eosinophils # 0.1 10*3/uL (0.0-0.87); Eosinophils % 1.5 % (0.00-10.9); Hematocrit 28.2 VOL% (35.7-47.0); Hemoglobin 8.6 GM/DL (12.0-16.0); Immature Granulocytes % 1.7 %; Immature Granulocytes Absolute 0.09 #; Lymphocytes # 0.9 10*3/uL (1.4-4.0); Lymphocytes % 17.3 % (21.3-54.2); Mean Corpuscular HGB Conc 30.5 GM/DL (32-36); Mean Corpuscular Volume 89.5 FL (87-102); Mean Platelet Volume 9.2 FL (9.6-12.0); Monocytes # 0.7 10*3/uL (0.11-0.8); Monocytes % 13.5 % (1.7-12.7); Neutrophils % 65.6 % (38.7-73.9); Platelet Count 300 T/CUMM (130-400); Red Blood Count 3.15 MC/CUMM (3.8-5.5); Red Cell Distribution Width 18.1 % (9.3-17.3); White Blood Count 5.3 T/CUMM (4-12)
[2022-02-25 05:35] LABS: Calcium 8.6 MG/DL (8.5-10.1); Potassium 4.5 MMOL/L (3.5-5.1)
[2022-02-25] MEDS: LEVOTHYROXINE 100 MCG TABLET PO SCH (06:27)
[2022-02-25] MEDS: INSULIN LISPRO 100 UNIT/ML SUBCUT SCH ×4 (08:10→21:19)
[2022-02-25] MEDS: GABAPENTIN 100 MG CAPSULE PO SCH ×2 (09:43→21:17)
[2022-02-25] MEDS: AMIODARONE 200 MG TABLET PO SCH ×2 (09:43→21:18)
[2022-02-25] MEDS: ESCITALOPRAM 10 MG TABLET PO SCH (09:43)
[2022-02-25] MEDS: SEVELAMER CARBONATE 800 MG TABLET PO SCH ×3 (09:43→17:31)
[2022-02-25] MEDS: PANTOPRAZOLE 40 MG TABLET PO SCH (09:43)
[2022-02-25] MEDS: ISOSORBIDE DINITRATE 10 MG TABLET PO SCH ×3 (09:43→21:19)
[2022-02-25] MEDS: METOCLOPRAMIDE 5 MG TABLET PO SCH ×2 (09:43→21:18)
[2022-02-25] MEDS: METOPROLOL TARTRATE 25 MG TABLET PO SCH ×2 (09:43→21:17)
[2022-02-25] MEDS: MENTHOL/ZINC OXIDE OINT 71 GM JAR TOP SCH ×2 (09:44→21:19)
[2022-02-25] MEDS: traZODone 50 MG TABLET PO SCH (21:18)
[2022-02-25] MEDS: buPROPion SR 150 MG TABLET PO SCH (21:18)
[2022-02-25] MEDS: ATORVASTATIN 40 MG TABLET PO SCH (21:19)
[2022-02-26] MEDS: ALBUTEROL/IPRATROPIUM 3 ML NEB RESP TX SCH ×6 (03:47→23:53)
[2022-02-26 05:18] LABS: Basophils % 0.4 % (0.0-0.8); Eosinophils # 0.1 10*3/uL (0.0-0.87); Eosinophils % 1.6 % (0.00-10.9); Hematocrit 26.9 VOL% (35.7-47.0); Hemoglobin 8.3 GM/DL (12.0-16.0); Immature Granulocytes % 2.4 %; Immature Granulocytes Absolute 0.13 #; Lymphocytes # 0.9 10*3/uL (1.4-4.0); Lymphocytes % 16.4 % (21.3-54.2); Mean Corpuscular HGB Conc 30.9 GM/DL (32-36); Mean Corpuscular Volume 89.7 FL (87-102); Mean Platelet Volume 9.6 FL (9.6-12.0); Monocytes # 0.8 10*3/uL (0.11-0.8); Monocytes % 14.4 % (1.7-12.7); Neutrophils % 64.8 % (38.7-73.9); Platelet Count 293 T/CUMM (130-400); Red Cell Distribution Width 17.9 % (9.3-17.3); White Blood Count 5.5 T/CUMM (4-12)
[2022-02-26 05:32] LABS: Calcium 8.6 MG/DL (8.5-10.1); Osmolality,Calculated 276.1 MOS/KG (273-304); Potassium 4.8 MMOL/L (3.5-5.1)
[2022-02-26] MEDS: LEVOTHYROXINE 100 MCG TABLET PO SCH (06:11)
[2022-02-26] MEDS: SEVELAMER CARBONATE 800 MG TABLET PO SCH ×3 (13:19→18:02)
[2022-02-26] MEDS: METOCLOPRAMIDE 5 MG TABLET PO SCH ×2 (13:35→21:15)
[2022-02-26] MEDS: ESCITALOPRAM 10 MG TABLET PO SCH (13:35)
[2022-02-26] MEDS: ISOSORBIDE DINITRATE 10 MG TABLET PO SCH ×3 (13:35→21:14)
[2022-02-26] MEDS: GABAPENTIN 100 MG CAPSULE PO SCH ×2 (13:35→21:13)
[2022-02-26] MEDS: METOPROLOL TARTRATE 25 MG TABLET PO SCH ×2 (13:36→21:14)
[2022-02-26] MEDS: PANTOPRAZOLE 40 MG TABLET PO SCH (13:36)
[2022-02-26] MEDS: AMIODARONE 200 MG TABLET PO SCH ×2 (13:36→21:13)
[2022-02-26] MEDS: INSULIN LISPRO 100 UNIT/ML SUBCUT SCH ×3 (13:36→21:16)
[2022-02-26] MEDS: MENTHOL/ZINC OXIDE OINT 71 GM JAR TOP SCH ×2 (13:37→21:15)
[2022-02-26] MEDS: ATORVASTATIN 40 MG TABLET PO SCH (21:13)
[2022-02-26] MEDS: traZODone 50 MG TABLET PO SCH (21:14)
[2022-02-26] MEDS: buPROPion SR 150 MG TABLET PO SCH (21:14)
[2022-02-27] MEDS: ALBUTEROL/IPRATROPIUM 3 ML NEB RESP TX SCH ×3 (02:59→11:09)
[2022-02-27] MEDS: LEVOTHYROXINE 100 MCG TABLET PO SCH (05:34)
[2022-02-27 05:45] LABS: Basophils % 0.5 % (0.0-0.8); Eosinophils # 0.1 10*3/uL (0.0-0.87); Hematocrit 27.4 VOL% (35.7-47.0); Hemoglobin 8.3 GM/DL (12.0-16.0); Immature Granulocytes % 3.9 %; Immature Granulocytes Absolute 0.17 #; Lymphocytes # 0.7 10*3/uL (1.4-4.0); Mean Corpuscular HGB Conc 30.3 GM/DL (32-36); Mean Corpuscular Volume 90.1 FL (87-102); Mean Platelet Volume 9.4 FL (9.6-12.0); Monocytes # 0.6 10*3/uL (0.11-0.8); Monocytes % 14.1 % (1.7-12.7); Neutrophils % 64.5 % (38.7-73.9); Platelet Count 239 T/CUMM (130-400); Red Blood Count 3.04 MC/CUMM (3.8-5.5); Red Cell Distribution Width 17.6 % (9.3-17.3); White Blood Count 4.4 T/CUMM (4-12)
[2022-02-27 06:05] LABS: Calcium 8.7 MG/DL (8.5-10.1); Osmolality,Calculated 271.1 MOS/KG (273-304); Potassium 4.4 MMOL/L (3.5-5.1)
[2022-02-27] MEDS: ISOSORBIDE DINITRATE 10 MG TABLET PO SCH (10:24)
[2022-02-27] MEDS: SEVELAMER CARBONATE 800 MG TABLET PO SCH (10:24)
[2022-02-27] MEDS: ESCITALOPRAM 10 MG TABLET PO SCH (10:24)
[2022-02-27] MEDS: AMIODARONE 200 MG TABLET PO SCH (10:25)
[2022-02-27] MEDS: PANTOPRAZOLE 40 MG TABLET PO SCH (10:25)
[2022-02-27] MEDS: INSULIN LISPRO 100 UNIT/ML SUBCUT SCH (10:25)
[2022-02-27] MEDS: METOCLOPRAMIDE 5 MG TABLET PO SCH (10:25)
[2022-02-27] MEDS: GABAPENTIN 100 MG CAPSULE PO SCH (10:25)
[2022-02-27 12:10] VITALS: BP 162/69
== END 2022-02-27 13:24 | DRG 137 ==
LOC: N.ED 09:48 → N.EDINP 12:14 → SUATTDRO 12:14 → N.EDINP 14:06 → N.5E 14:17 → N.CC 02-17 19:04 → N.TELEN 02-23 10:48
PROVIDERS: ADMIT Internal Medicine; ATTEND Internal Medicine

== ENCOUNTER 2022-02-28 15:57 | Inpatient (IN) ==
[2022-02-28 18:17] LABS: Arterial Base Excess iSTAT 5 MMOL/L (-2.5-2.5); Arterial Bicarbonate iSTAT 31.1 MMOL/L (20-26); Arterial O2 Saturation iSTAT 49 % (95-100); Arterial PCO2 iSTAT 56 MM HG (35-48); Arterial PO2 iSTAT 28 MM HG (80-95); Arterial Total CO2 iSTAT 33 MMO/L (23-27); Arterial pH iSTAT 7.352 (7.35-7.45)
[2022-02-28 18:30] LABS: Arterial Base Excess iSTAT 4 MMOL/L (-2.5-2.5); Arterial Bicarbonate iSTAT 29.4 MMOL/L (20-26); Arterial O2 Saturation iSTAT 98 % (95-100); Arterial PCO2 iSTAT 49 MM HG (35-48); Arterial PO2 iSTAT 117 MM HG (80-95); Arterial Total CO2 iSTAT 31 MMO/L (23-27); Arterial pH iSTAT 7.386 (7.35-7.45)
[2022-02-28 18:55] LABS: Basophils % 0.2 % (0.0-0.8); Eosinophils # 0.1 10*3/uL (0.0-0.87); Eosinophils % 2.7 % (0.00-10.9); Hematocrit 28.2 VOL% (35.7-47.0); Hemoglobin 8.7 GM/DL (12.0-16.0); Immature Granulocytes % 4.9 %; Immature Granulocytes Absolute 0.25 #; Lymphocytes # 0.6 10*3/uL (1.4-4.0); Lymphocytes % 12.4 % (21.3-54.2); Mean Corpuscular HGB Conc 30.9 GM/DL (32-36); Mean Corpuscular Volume 88.7 FL (87-102); Mean Platelet Volume 9.2 FL (9.6-12.0); Monocytes # 0.6 10*3/uL (0.11-0.8); Monocytes % 11.4 % (1.7-12.7); Neutrophils % 68.4 % (38.7-73.9); Platelet Count 266 T/CUMM (130-400); Red Blood Count 3.18 MC/CUMM (3.8-5.5); Red Cell Distribution Width 17.3 % (9.3-17.3); White Blood Count 5.1 T/CUMM (4-12)
[2022-02-28 19:05] LABS: PT Patient Result 11.1 SECS (10.5-12.0)
[2022-02-28 19:12] LABS: Alanine Aminotransferase 12 U/L (13-56); Albumin 2.2 G/DL (3.4-5.0); Alkaline Phosphatase 85 U/L (45-117); Aspartate Amino Transferase 18 U/L (0-37); Bilirubin,Total < 0.39 MG/DL (0.20-1.00); Blood Urea Nitrogen 22 MG/DL (7-18); Calcium 8.4 MG/DL (8.5-10.1); Carbon Dioxide 32 MMOL/L (21-32); Chloride 101 MMOL/L (98-107); Glucose 79 MG/DL (74-106); Osmolality,Calculated 274.8 MOS/KG (273-304); Potassium 3.9 MMOL/L (3.5-5.1); Sodium 137 MMOL/L (136-145); Total Protein 6.3 G/DL (6.4-8.2)
[2022-02-28] MEDS ORDERED: GLUCAGON 1 MG VIAL IM PRN ×2 (20:50→20:59)
[2022-02-28] MEDS ORDERED: DEXTROSE 50% 25 GM/50 ML VIAL IV PRN (20:50)
[2022-02-28] MEDS ORDERED: MAGNESIUM SULF RIDER 4 GM/100 ML PREMIX IV PRN (20:51)
[2022-02-28] MEDS ORDERED: MAGNESIUM SULF RIDER 2 GM/50 ML PREMIX IV PRN (20:51)
[2022-02-28] MEDS ORDERED: ONDANSETRON 4 MG/2 ML VIAL IV PRN (20:51)
[2022-02-28] MEDS ORDERED: ACETAMINOPHEN 325 MG TABLET PO PRN (20:56)
[2022-02-28] MEDS ORDERED: hydrALAZINE 20 MG/1 ML VIAL IV PRN (21:02)
[2022-02-28] MEDS ORDERED: DEXTROSE 10% 250 ML BAG IV PRN (21:16)
[2022-02-28] MEDS: ATORVASTATIN 40 MG TABLET PO SCH (21:39)
[2022-02-28] MEDS: ISOSORBIDE DINITRATE 20 MG TABLET PO SCH (21:40)
[2022-02-28] MEDS: GABAPENTIN 100 MG CAPSULE PO SCH (21:40)
[2022-02-28] MEDS: carvediloL 3.125 MG TABLET PO SCH (21:40)
[2022-02-28] MEDS: ASPIRIN CHEW 81 MG TABLET PO SCH (21:41)
[2022-02-28] MEDS: HEPARIN 5,000 UNIT/1 ML VIAL SUBCUT SCH (22:17)
[2022-02-28] MEDS: INSULIN REGULAR 100 UNIT/ML SUBCUT SCH (22:52)
[2022-02-28] MEDS: METOCLOPRAMIDE 5 MG TABLET PO SCH (23:02)
[2022-02-28] MEDS: ERGOCALCIFEROL 50,000 UNIT CAPSULE PO SCH (23:02)
[2022-02-28] MEDS: AMIODARONE 200 MG TABLET PO SCH (23:02)
[2022-02-28] MEDS: SEVELAMER CARBONATE 800 MG TABLET PO SCH (23:03)
[2022-02-28] MEDS: buPROPion SR 150 MG TABLET PO SCH (23:03)
[2022-02-28] MEDS ORDERED: ALBUTEROL/IPRATROPIUM 3 ML NEB RESP TX ONE (23:47)
[2022-03-01] MEDS: ALBUTEROL/IPRATROPIUM 3 ML NEB RESP TX SCH ×4 (00:35→19:11)
[2022-03-01 00:44] LABS: Basophils % 0.2 % (0.0-0.8); Eosinophils # 0.1 10*3/uL (0.0-0.87); Eosinophils % 2.7 % (0.00-10.9); Hematocrit 25.5 VOL% (35.7-47.0); Immature Granulocytes % 4.5 %; Lymphocytes # 0.9 10*3/uL (1.4-4.0); Lymphocytes % 19.2 % (21.3-54.2); Mean Corpuscular HGB Conc 31.4 GM/DL (32-36); Mean Corpuscular Volume 88.2 FL (87-102); Mean Platelet Volume 9.1 FL (9.6-12.0); Monocytes # 0.6 10*3/uL (0.11-0.8); Monocytes % 13.4 % (1.7-12.7); Platelet Count 201 T/CUMM (130-400); Red Blood Count 2.89 MC/CUMM (3.8-5.5); Red Cell Distribution Width 17.4 % (9.3-17.3); White Blood Count 4.5 T/CUMM (4-12)
[2022-03-01 01:16] LABS: Alanine Aminotransferase 10 U/L (13-56); Albumin 1.9 G/DL (3.4-5.0); Alkaline Phosphatase 65 U/L (45-117); Aspartate Amino Transferase 15 U/L (0-37); Bilirubin,Total < 0.39 MG/DL (0.20-1.00); Blood Urea Nitrogen 24 MG/DL (7-18); Calcium 8.4 MG/DL (8.5-10.1); Carbon Dioxide 25 MMOL/L (21-32); Chloride 103 MMOL/L (98-107); Glucose 70 MG/DL (74-106); Potassium 3.8 MMOL/L (3.5-5.1); Sodium 136 MMOL/L (136-145)
[2022-03-01] MEDS: LEVOTHYROXINE 100 MCG TABLET PO SCH (05:40)
[2022-03-01] MEDS ORDERED: HEPARIN 10,000 UNIT/10 ML VIAL IV PRN (09:33)
[2022-03-01] MEDS: INSULIN REGULAR 100 UNIT/ML SUBCUT SCH ×4 (12:25→20:21)
[2022-03-01] MEDS: AMIODARONE 200 MG TABLET PO SCH ×2 (14:52→20:50)
[2022-03-01] MEDS: HEPARIN 5,000 UNIT/1 ML VIAL SUBCUT SCH ×2 (14:53→20:21)
[2022-03-01] MEDS: ISOSORBIDE DINITRATE 20 MG TABLET PO SCH ×3 (14:53→20:52)
[2022-03-01] MEDS: carvediloL 3.125 MG TABLET PO SCH ×2 (14:53→20:50)
[2022-03-01] MEDS: SEVELAMER CARBONATE 800 MG TABLET PO SCH ×3 (14:54→20:22)
[2022-03-01] MEDS: METOCLOPRAMIDE 5 MG TABLET PO SCH ×2 (14:54→20:52)
[2022-03-01] MEDS: GABAPENTIN 100 MG CAPSULE PO SCH ×2 (14:54→20:47)
[2022-03-01] MEDS: ASPIRIN CHEW 81 MG TABLET PO SCH (15:25)
[2022-03-01] MEDS: ESCITALOPRAM 10 MG TABLET PO SCH (15:25)
[2022-03-01] MEDS: PANTOPRAZOLE 40 MG TABLET PO SCH (15:25)
[2022-03-01] MEDS: ERGOCALCIFEROL 50,000 UNIT CAPSULE PO SCH (20:21)
[2022-03-01] MEDS: buPROPion SR 150 MG TABLET PO SCH (20:22)
[2022-03-01] MEDS: ATORVASTATIN 40 MG TABLET PO SCH (20:47)
[2022-03-02] MEDS: ALBUTEROL/IPRATROPIUM 3 ML NEB RESP TX SCH ×4 (00:11→19:51)
[2022-03-02] MEDS: LEVOTHYROXINE 100 MCG TABLET PO SCH (05:21)
[2022-03-02 06:08] LABS: Basophils % 0.5 % (0.0-0.8); Eosinophils # 0.1 10*3/uL (0.0-0.87); Eosinophils % 2.2 % (0.00-10.9); Hematocrit 25.5 VOL% (35.7-47.0); Hemoglobin 7.7 GM/DL (12.0-16.0); Immature Granulocytes % 2.7 %; Immature Granulocytes Absolute 0.11 #; Lymphocytes # 0.6 10*3/uL (1.4-4.0); Mean Corpuscular HGB Conc 30.2 GM/DL (32-36); Mean Corpuscular Volume 89.8 FL (87-102); Mean Platelet Volume 9.3 FL (9.6-12.0); Monocytes # 0.6 10*3/uL (0.11-0.8); Monocytes % 13.5 % (1.7-12.7); Neutrophils % 66.1 % (38.7-73.9); Platelet Count 211 T/CUMM (130-400); Red Blood Count 2.84 MC/CUMM (3.8-5.5); Red Cell Distribution Width 17.6 % (9.3-17.3); White Blood Count 4.1 T/CUMM (4-12)
[2022-03-02 06:36] LABS: Alanine Aminotransferase 10 U/L (13-56); Alkaline Phosphatase 66 U/L (45-117); Aspartate Amino Transferase 16 U/L (0-37); Bilirubin,Total < 0.39 MG/DL (0.20-1.00); Blood Urea Nitrogen 18 MG/DL (7-18); Calcium 8.7 MG/DL (8.5-10.1); Carbon Dioxide 27 MMOL/L (21-32); Chloride 105 MMOL/L (98-107); Glucose 69 MG/DL (74-106); Potassium 3.9 MMOL/L (3.5-5.1); Sodium 136 MMOL/L (136-145); Total Protein 6.3 G/DL (6.4-8.2)
[2022-03-02] MEDS: INSULIN REGULAR 100 UNIT/ML SUBCUT SCH ×3 (07:51→19:36)
[2022-03-02] MEDS: HEPARIN 5,000 UNIT/1 ML VIAL SUBCUT SCH ×2 (09:10→23:10)
[2022-03-02] MEDS: ESCITALOPRAM 10 MG TABLET PO SCH (09:10)
[2022-03-02] MEDS: METOCLOPRAMIDE 5 MG TABLET PO SCH ×2 (09:10→23:11)
[2022-03-02] MEDS: GABAPENTIN 100 MG CAPSULE PO SCH ×2 (09:37→23:11)
[2022-03-02] MEDS: SEVELAMER CARBONATE 800 MG TABLET PO SCH ×3 (09:37→23:11)
[2022-03-02] MEDS: AMIODARONE 200 MG TABLET PO SCH ×2 (09:37→23:11)
[2022-03-02] MEDS: ISOSORBIDE DINITRATE 20 MG TABLET PO SCH ×3 (09:37→23:10)
[2022-03-02] MEDS: carvediloL 3.125 MG TABLET PO SCH ×2 (09:38→23:11)
[2022-03-02] MEDS: PANTOPRAZOLE 40 MG TABLET PO SCH (09:38)
[2022-03-02] MEDS: ASPIRIN CHEW 81 MG TABLET PO SCH (09:38)
[2022-03-02] MEDS ORDERED: ALBUTEROL 1.25 MG/3 ML NEB RESP TX PRN (09:55)
[2022-03-02] MEDS: buPROPion SR 150 MG TABLET PO SCH (23:10)
[2022-03-02] MEDS: ATORVASTATIN 40 MG TABLET PO SCH (23:11)
[2022-03-02] MEDS: ERGOCALCIFEROL 50,000 UNIT CAPSULE PO SCH (23:12)
[2022-03-03] MEDS: ALBUTEROL/IPRATROPIUM 3 ML NEB RESP TX SCH ×4 (00:40→19:35)
[2022-03-03] MEDS: INSULIN REGULAR 100 UNIT/ML SUBCUT SCH ×5 (00:42→21:48)
[2022-03-03 05:05] LABS: Basophils % 0.7 % (0.0-0.8); Eosinophils # 0.1 10*3/uL (0.0-0.87); Eosinophils % 2.7 % (0.00-10.9); Hematocrit 26.7 VOL% (35.7-47.0); Hemoglobin 8.1 GM/DL (12.0-16.0); Immature Granulocytes % 2.2 %; Lymphocytes # 0.6 10*3/uL (1.4-4.0); Lymphocytes % 13.7 % (21.3-54.2); Mean Corpuscular HGB Conc 30.3 GM/DL (32-36); Mean Corpuscular Volume 89.3 FL (87-102); Mean Platelet Volume 9.4 FL (9.6-12.0); Monocytes # 0.7 10*3/uL (0.11-0.8); Monocytes % 14.6 % (1.7-12.7); Neutrophils % 66.1 % (38.7-73.9); Platelet Count 226 T/CUMM (130-400); Red Blood Count 2.99 MC/CUMM (3.8-5.5); Red Cell Distribution Width 17.7 % (9.3-17.3); White Blood Count 4.5 T/CUMM (4-12)
[2022-03-03 05:31] LABS: Alanine Aminotransferase 11 U/L (13-56); Albumin 2.1 G/DL (3.4-5.0); Alkaline Phosphatase 83 U/L (45-117); Aspartate Amino Transferase 16 U/L (0-37); Bilirubin,Total < 0.39 MG/DL (0.20-1.00); Blood Urea Nitrogen 26 MG/DL (7-18); Calcium 8.9 MG/DL (8.5-10.1); Carbon Dioxide 27 MMOL/L (21-32); Chloride 104 MMOL/L (98-107); Glucose 81 MG/DL (74-106); Osmolality,Calculated 276.8 MOS/KG (273-304); Sodium 137 MMOL/L (136-145); Total Protein 6.5 G/DL (6.4-8.2)
[2022-03-03] MEDS: LEVOTHYROXINE 100 MCG TABLET PO SCH (06:44)
[2022-03-03] MEDS: AMIODARONE 200 MG TABLET PO SCH ×2 (12:01→21:48)
[2022-03-03] MEDS: carvediloL 3.125 MG TABLET PO SCH ×2 (12:02→21:48)
[2022-03-03] MEDS: GABAPENTIN 100 MG CAPSULE PO SCH ×2 (12:02→21:48)
[2022-03-03] MEDS: SEVELAMER CARBONATE 800 MG TABLET PO SCH ×3 (12:02→21:48)
[2022-03-03] MEDS: HEPARIN 5,000 UNIT/1 ML VIAL SUBCUT SCH ×2 (12:03→21:48)
[2022-03-03] MEDS: ASPIRIN CHEW 81 MG TABLET PO SCH (14:00)
[2022-03-03] MEDS: PANTOPRAZOLE 40 MG TABLET PO SCH (14:00)
[2022-03-03] MEDS: ESCITALOPRAM 10 MG TABLET PO SCH (14:00)
[2022-03-03] MEDS: METOCLOPRAMIDE 5 MG TABLET PO SCH ×2 (14:00→21:48)
[2022-03-03] MEDS: ISOSORBIDE DINITRATE 20 MG TABLET PO SCH ×3 (14:52→21:48)
[2022-03-03] MEDS: guaiFENesin/DM ER 600-30 MG TABLET PO SCH ×2 (15:17→21:48)
[2022-03-03] MEDS: buPROPion SR 150 MG TABLET PO SCH (21:48)
[2022-03-03] MEDS: ATORVASTATIN 40 MG TABLET PO SCH (21:48)
[2022-03-03] MEDS: ERGOCALCIFEROL 50,000 UNIT CAPSULE PO SCH (21:48)
[2022-03-04] MEDS: ALBUTEROL/IPRATROPIUM 3 ML NEB RESP TX SCH ×3 (00:15→14:20)
[2022-03-04 04:53] LABS: Basophils % 0.5 % (0.0-0.8); Eosinophils # 0.1 10*3/uL (0.0-0.87); Hematocrit 25.1 VOL% (35.7-47.0); Hemoglobin 7.6 GM/DL (12.0-16.0); Immature Granulocytes % 1.2 %; Immature Granulocytes Absolute 0.05 #; Lymphocytes # 0.6 10*3/uL (1.4-4.0); Mean Corpuscular HGB Conc 30.3 GM/DL (32-36); Mean Corpuscular Volume 90.9 FL (87-102); Mean Platelet Volume 9.7 FL (9.6-12.0); Monocytes # 0.5 10*3/uL (0.11-0.8); Monocytes % 12.1 % (1.7-12.7); Neutrophils % 68.2 % (38.7-73.9); Platelet Count 226 T/CUMM (130-400); Red Blood Count 2.76 MC/CUMM (3.8-5.5); Red Cell Distribution Width 17.8 % (9.3-17.3); White Blood Count 4.1 T/CUMM (4-12)
[2022-03-04 05:02] LABS: Calcium 8.7 MG/DL (8.5-10.1); Osmolality,Calculated 274.7 MOS/KG (273-304); Potassium 3.9 MMOL/L (3.5-5.1)
[2022-03-04] MEDS: LEVOTHYROXINE 100 MCG TABLET PO SCH (05:31)
[2022-03-04] MEDS: INSULIN REGULAR 100 UNIT/ML SUBCUT SCH ×3 (08:56→17:47)
[2022-03-04] MEDS: SEVELAMER CARBONATE 800 MG TABLET PO SCH ×2 (09:46→15:32)
[2022-03-04] MEDS: PANTOPRAZOLE 40 MG TABLET PO SCH (09:46)
[2022-03-04] MEDS: AMIODARONE 200 MG TABLET PO SCH (09:46)
[2022-03-04] MEDS: HEPARIN 5,000 UNIT/1 ML VIAL SUBCUT SCH (09:46)
[2022-03-04] MEDS: ESCITALOPRAM 10 MG TABLET PO SCH (09:46)
[2022-03-04] MEDS: ASPIRIN CHEW 81 MG TABLET PO SCH (09:47)
[2022-03-04] MEDS: METOCLOPRAMIDE 5 MG TABLET PO SCH (09:47)
[2022-03-04] MEDS: ISOSORBIDE DINITRATE 20 MG TABLET PO SCH ×2 (09:47→16:24)
[2022-03-04] MEDS: carvediloL 3.125 MG TABLET PO SCH (09:47)
[2022-03-04] MEDS: GABAPENTIN 100 MG CAPSULE PO SCH (09:47)
[2022-03-04 12:11] VITALS: BP 167/74
[2022-03-04] MEDS: guaiFENesin/DM ER 600-30 MG TABLET PO SCH (14:11)
[2022-03-04] MEDS ORDERED: ZINC OXIDE PASTE 113 GM TUBE TOP PRN (15:00)
== END 2022-03-04 18:10 | DRG 194 ==
LOC: EDBD → EDUNIT# → N.ED 15:57 → SUATTDRO 19:49 → N.EDINP 19:49 → N.TELEN 20:58
PROVIDERS: ADMIT Hospitalist; ATTEND Family Medicine

== ENCOUNTER 2022-03-26 10:42 | Observation (INO) ==
[2022-03-26 11:31] LABS: Basophils % 0.4 % (0.0-0.8); Eosinophils # 0.2 10*3/uL (0.0-0.87); Eosinophils % 3.2 % (0.00-10.9); Hematocrit 26.2 VOL% (35.7-47.0); Hemoglobin 7.9 GM/DL (12.0-16.0); Immature Granulocytes % 1.9 %; Immature Granulocytes Absolute 0.09 #; Lymphocytes # 0.5 10*3/uL (1.4-4.0); Lymphocytes % 9.7 % (21.3-54.2); Mean Corpuscular HGB Conc 30.2 GM/DL (32-36); Mean Corpuscular Volume 94.9 FL (87-102); Monocytes # 0.6 10*3/uL (0.11-0.8); Monocytes % 12.9 % (1.7-12.7); Neutrophils % 71.9 % (38.7-73.9); Platelet Count 244 T/CUMM (130-400); Red Blood Count 2.76 MC/CUMM (3.8-5.5); Red Cell Distribution Width 18.6 % (9.3-17.3); White Blood Count 4.7 T/CUMM (4-12)
[2022-03-26 11:51] LABS: Albumin 2.4 G/DL (3.4-5.0); Bilirubin,Total 0.5 MG/DL (0.20-1.00); Calcium 8.9 MG/DL (8.5-10.1); Osmolality,Calculated 286.1 MOS/KG (273-304); Potassium 4.7 MMOL/L (3.5-5.1); Total Protein 6.3 G/DL (6.4-8.2)
[2022-03-26] MEDS ORDERED: ALBUTEROL/IPRATROPIUM 3 ML NEB RESP TX STA (12:34)
[2022-03-26] MEDS ORDERED: GLUCAGON 1 MG VIAL IM PRN (13:46)
[2022-03-26] MEDS ORDERED: ONDANSETRON 4 MG/2 ML VIAL IV PRN (13:46)
[2022-03-26] MEDS ORDERED: ACETAMINOPHEN 325 MG TABLET PO PRN (13:46)
[2022-03-26] MEDS ORDERED: DOCUSATE SODIUM 100 MG CAPSULE PO PRN (13:46)
[2022-03-26] MEDS ORDERED: DEXTROSE 10% 250 ML BAG IV PRN (13:55)
[2022-03-26] MEDS ORDERED: ALBUTEROL 1.25 MG/3 ML NEB RESP TX PRN (14:06)
[2022-03-26] MEDS ORDERED: ALBUTEROL/IPRATROPIUM 3 ML NEB RESP TX PRN (14:06)
[2022-03-26] MEDS: INSULIN LISPRO 100 UNIT/ML SUBCUT SCH ×2 (16:48→20:20)
[2022-03-26] MEDS: traZODone 50 MG TABLET PO SCH (17:14)
[2022-03-26] MEDS: carvediloL 6.25 MG TABLET PO SCH (17:14)
[2022-03-26] MEDS: GABAPENTIN 100 MG CAPSULE PO SCH (17:14)
[2022-03-26] MEDS: METOCLOPRAMIDE 5 MG TABLET PO SCH (17:14)
[2022-03-26] MEDS: ISOSORBIDE DINITRATE 20 MG TABLET PO SCH ×2 (17:14→21:12)
[2022-03-26] MEDS: SEVELAMER CARBONATE 800 MG TABLET PO SCH ×2 (17:14→21:12)
[2022-03-26] MEDS ORDERED: buPROPion SR 150 MG TABLET PO SCH (21:00)
[2022-03-26] MEDS: AMIODARONE 200 MG TABLET PO SCH (21:06)
[2022-03-26] MEDS: guaiFENesin/DM ER 600-30 MG TABLET PO SCH (21:12)
[2022-03-27 04:53] LABS: Basophils % 0.4 % (0.0-0.8); Eosinophils # 0.1 10*3/uL (0.0-0.87); Hematocrit 24.1 VOL% (35.7-47.0); Hemoglobin 7.3 GM/DL (12.0-16.0); Immature Granulocytes % 0.7 %; Immature Granulocytes Absolute 0.04 #; Lymphocytes # 0.6 10*3/uL (1.4-4.0); Lymphocytes % 10.4 % (21.3-54.2); Mean Corpuscular HGB Conc 30.3 GM/DL (32-36); Mean Corpuscular Volume 93.4 FL (87-102); Mean Platelet Volume 10.1 FL (9.6-12.0); Monocytes # 0.6 10*3/uL (0.11-0.8); Monocytes % 11.3 % (1.7-12.7); Neutrophils % 75.2 % (38.7-73.9); Platelet Count 197 T/CUMM (130-400); Red Blood Count 2.58 MC/CUMM (3.8-5.5); Red Cell Distribution Width 18.6 % (9.3-17.3); White Blood Count 5.4 T/CUMM (4-12)
[2022-03-27 05:13] LABS: Calcium 8.7 MG/DL (8.5-10.1); Potassium 4.7 MMOL/L (3.5-5.1)
[2022-03-27] MEDS: AMIODARONE 200 MG TABLET PO SCH (05:38)
[2022-03-27] MEDS: SEVELAMER CARBONATE 800 MG TABLET PO SCH ×4 (05:48→17:19)
[2022-03-27] MEDS: METOCLOPRAMIDE 5 MG TABLET PO SCH ×2 (05:48→17:19)
[2022-03-27] MEDS: carvediloL 6.25 MG TABLET PO SCH ×2 (05:49→17:19)
[2022-03-27] MEDS: GABAPENTIN 100 MG CAPSULE PO SCH ×2 (05:49→17:19)
[2022-03-27] MEDS: ISOSORBIDE DINITRATE 20 MG TABLET PO SCH ×2 (05:49→17:19)
[2022-03-27] MEDS ORDERED: LEVOTHYROXINE 100 MCG TABLET PO SCH (06:00)
[2022-03-27] MEDS ORDERED: APIXABAN 2.5 MG TABLET PO SCH (06:00)
[2022-03-27] MEDS ORDERED: ATORVASTATIN 40 MG TABLET PO SCH (06:00)
[2022-03-27] MEDS ORDERED: ESCITALOPRAM 10 MG TABLET PO SCH (06:00)
[2022-03-27] MEDS: INSULIN LISPRO 100 UNIT/ML SUBCUT SCH ×3 (07:56→17:23)
[2022-03-27] MEDS ORDERED: PANTOPRAZOLE 40 MG TABLET PO SCH (09:00)
[2022-03-27] MEDS: guaiFENesin/DM ER 600-30 MG TABLET PO SCH (09:23)
[2022-03-27] MEDS ORDERED: HEPARIN 10,000 UNIT/10 ML VIAL IV SCH (16:30)
[2022-03-27] MEDS: traZODone 50 MG TABLET PO SCH (17:19)
[2022-03-27 17:39] VITALS: BP 143/61
== END 2022-03-27 18:19 ==
LOC: N.ED 10:42 → N.EDINP 10:42 → N.3E 19:45
PROVIDERS: ADMIT Internal Medicine; ATTEND Internal Medicine

== ENCOUNTER 2022-03-29 21:09 | Inpatient (IN) ==
[2022-03-29] MEDS ORDERED: ALBUTEROL/IPRATROPIUM 3 ML NEB RESP TX STA ×2 (21:41→21:42)
[2022-03-29 21:45] LABS: Basophils % 0.1 % (0.0-0.8); Eosinophils # 0.2 10*3/uL (0.0-0.87); Eosinophils % 2.2 % (0.00-10.9); Hematocrit 25.8 VOL% (35.7-47.0); Hemoglobin 7.8 GM/DL (12.0-16.0); Immature Granulocytes % 1.5 %; Lymphocytes # 0.7 10*3/uL (1.4-4.0); Lymphocytes % 10.6 % (21.3-54.2); Mean Corpuscular HGB Conc 30.2 GM/DL (32-36); Mean Corpuscular Volume 93.8 FL (87-102); Mean Platelet Volume 9.8 FL (9.6-12.0); Monocytes # 0.6 10*3/uL (0.11-0.8); Monocytes % 9.1 % (1.7-12.7); Neutrophils % 76.5 % (38.7-73.9); Platelet Count 247 T/CUMM (130-400); Red Blood Count 2.75 MC/CUMM (3.8-5.5); Red Cell Distribution Width 18.4 % (9.3-17.3); White Blood Count 6.7 T/CUMM (4-12)
[2022-03-29 21:57] LABS: INR 1.1; PT Patient Result 11.8 SECS (10.5-12.0); Partial Thromboplastin Time 89.4 SECS (23.7-32.9)
[2022-03-29 22:04] LABS: Arterial Base Excess iSTAT 0 MMOL/L (-2.5-2.5); Arterial Bicarbonate iSTAT 25.3 MMOL/L (20-26); Arterial O2 Saturation iSTAT 69 % (95-100); Arterial PCO2 iSTAT 46 MM HG (35-48); Arterial PO2 iSTAT 38 MM HG (80-95); Arterial Total CO2 iSTAT 27 MMO/L (23-27); Arterial pH iSTAT 7.354 (7.35-7.45)
[2022-03-29 22:09] LABS: Arterial Base Excess iSTAT 0 MMOL/L (-2.5-2.5); Arterial Bicarbonate iSTAT 25.6 MMOL/L (20-26); Arterial O2 Saturation iSTAT 96 % (95-100); Arterial PCO2 iSTAT 48 MM HG (35-48); Arterial PO2 iSTAT 88 MM HG (80-95); Arterial Total CO2 iSTAT 27 MMO/L (23-27); Arterial pH iSTAT 7.332 (7.35-7.45)
[2022-03-29 22:30] LABS: Albumin 2.4 G/DL (3.4-5.0); Bilirubin,Total 0.6 MG/DL (0.20-1.00); Calcium 8.7 MG/DL (8.5-10.1); Potassium 4.7 MMOL/L (3.5-5.1); Thyroid Stimulating Hormone 24.2 uIU/ml (0.358-3.74); Total Protein 6.5 G/DL (6.4-8.2)
[2022-03-29] MEDS ORDERED: ASPIRIN CHEW 81 MG TABLET PO STA (22:46)
[2022-03-29] MEDS ORDERED: cefTRIAXone 1,000 MG in SODIUM CHLORIDE 0.9% 100 ML IV STA (22:53)
[2022-03-29 22:57] LABS: Acetaminophen < 2.0 UG/ML (10-30); Salicylate < 2.8 MG/DL (2.8-20)
[2022-03-29] MEDS ORDERED: ASPIRIN 325 MG TABLET ONE (23:50)
[2022-03-30] MEDS ORDERED: ACETAMINOPHEN 325 MG TABLET PO PRN (00:02)
[2022-03-30] MEDS ORDERED: GLUCAGON 1 MG VIAL IM PRN (00:02)
[2022-03-30] MEDS: ALBUTEROL 2.5 MG/3 ML NEB RESP TX SCH ×4 (00:30→19:10)
[2022-03-30 04:35] LABS: Basophils % 0.3 % (0.0-0.8); Eosinophils # 0.1 10*3/uL (0.0-0.87); Eosinophils % 2.1 % (0.00-10.9); Hematocrit 24.2 VOL% (35.7-47.0); Hemoglobin 7.3 GM/DL (12.0-16.0); Immature Granulocytes % 1.3 %; Immature Granulocytes Absolute 0.08 #; Lymphocytes # 0.8 10*3/uL (1.4-4.0); Lymphocytes % 12.4 % (21.3-54.2); Mean Corpuscular HGB Conc 30.2 GM/DL (32-36); Mean Corpuscular Volume 92.7 FL (87-102); Mean Platelet Volume 9.3 FL (9.6-12.0); Monocytes # 0.7 10*3/uL (0.11-0.8); Monocytes % 10.7 % (1.7-12.7); Neutrophils % 73.2 % (38.7-73.9); Platelet Count 205 T/CUMM (130-400); Red Blood Count 2.61 MC/CUMM (3.8-5.5); Red Cell Distribution Width 18.3 % (9.3-17.3); White Blood Count 6.1 T/CUMM (4-12)
[2022-03-30 04:56] LABS: Calcium 8.6 MG/DL (8.5-10.1); Potassium 4.6 MMOL/L (3.5-5.1)
[2022-03-30] MEDS: ASPIRIN EC 81 MG TABLET PO SCH (06:13)
[2022-03-30] MEDS: ATORVASTATIN 40 MG TABLET PO SCH (06:13)
[2022-03-30] MEDS: APIXABAN 2.5 MG TABLET PO SCH (06:13)
[2022-03-30] MEDS: ISOSORBIDE DINITRATE 20 MG TABLET PO SCH ×3 (06:13→20:55)
[2022-03-30] MEDS: carvediloL 6.25 MG TABLET PO SCH ×2 (06:13→17:40)
[2022-03-30] MEDS: AMIODARONE 200 MG TABLET PO SCH ×2 (06:13→20:56)
[2022-03-30] MEDS: GABAPENTIN 100 MG CAPSULE PO SCH ×2 (06:14→17:39)
[2022-03-30] MEDS: SEVELAMER CARBONATE 800 MG TABLET PO SCH ×3 (07:54→20:56)
[2022-03-30] MEDS: METOCLOPRAMIDE 5 MG TABLET PO SCH ×2 (07:54→17:39)
[2022-03-30] MEDS: LEVOTHYROXINE 112 MCG TABLET PO SCH (07:55)
[2022-03-30] MEDS: metOLazone 5 MG TABLET PO SCH ×2 (07:55→17:39)
[2022-03-30] MEDS: INSULIN REGULAR 100 UNIT/ML SUBCUT SCH ×2 (09:31→17:01)
[2022-03-30] MEDS: DOCUSATE SODIUM 100 MG CAPSULE PO SCH ×2 (09:37→20:55)
[2022-03-30] MEDS: guaiFENesin/DM ER 600-30 MG TABLET PO SCH ×2 (09:38→20:56)
[2022-03-30] MEDS: PANTOPRAZOLE 40 MG TABLET PO SCH (09:38)
[2022-03-30] MEDS: traZODone 50 MG TABLET PO SCH (17:39)
[2022-03-30] MEDS: buPROPion SR 150 MG TABLET PO SCH (20:55)
[2022-03-31] MEDS: ALBUTEROL 2.5 MG/3 ML NEB RESP TX SCH ×4 (00:20→19:59)
[2022-03-31] MEDS: ATORVASTATIN 40 MG TABLET PO SCH (05:38)
[2022-03-31] MEDS: ASPIRIN EC 81 MG TABLET PO SCH (05:38)
[2022-03-31] MEDS: GABAPENTIN 100 MG CAPSULE PO SCH ×2 (05:38→17:02)
[2022-03-31] MEDS: ISOSORBIDE DINITRATE 20 MG TABLET PO SCH ×3 (05:39→21:09)
[2022-03-31] MEDS: carvediloL 6.25 MG TABLET PO SCH ×2 (05:39→17:02)
[2022-03-31] MEDS: METOCLOPRAMIDE 5 MG TABLET PO SCH ×2 (05:39→17:02)
[2022-03-31] MEDS: AMIODARONE 200 MG TABLET PO SCH ×2 (05:39→21:09)
[2022-03-31] MEDS: LEVOTHYROXINE 112 MCG TABLET PO SCH (05:39)
[2022-03-31] MEDS: metOLazone 5 MG TABLET PO SCH ×2 (05:39→17:02)
[2022-03-31] MEDS: APIXABAN 2.5 MG TABLET PO SCH (05:39)
[2022-03-31] MEDS: SEVELAMER CARBONATE 800 MG TABLET PO SCH ×3 (05:39→21:09)
[2022-03-31] MEDS: INSULIN REGULAR 100 UNIT/ML SUBCUT SCH ×2 (08:24→16:44)
[2022-03-31] MEDS: PANTOPRAZOLE 40 MG TABLET PO SCH (09:50)
[2022-03-31] MEDS: DOCUSATE SODIUM 100 MG CAPSULE PO SCH ×2 (09:50→21:09)
[2022-03-31] MEDS: VENLAFAXINE XR 75 MG CAPSULE PO SCH (09:50)
[2022-03-31] MEDS: guaiFENesin/DM ER 600-30 MG TABLET PO SCH ×2 (09:50→21:09)
[2022-03-31] MEDS ORDERED: HEPARIN 10,000 UNIT/10 ML VIAL IV PRN (12:56)
[2022-03-31] MEDS: traZODone 50 MG TABLET PO SCH (17:01)
[2022-03-31] MEDS: buPROPion SR 150 MG TABLET PO SCH (21:09)
[2022-04-01] MEDS: ALBUTEROL 2.5 MG/3 ML NEB RESP TX SCH ×4 (01:23→19:58)
[2022-04-01] MEDS: guaiFENesin 200 MG/10 ML UDCUP PO PRN ×2 (04:19→08:43)
[2022-04-01] MEDS: METOCLOPRAMIDE 5 MG TABLET PO SCH ×2 (05:33→17:25)
[2022-04-01] MEDS: GABAPENTIN 100 MG CAPSULE PO SCH ×2 (05:33→17:25)
[2022-04-01] MEDS: carvediloL 6.25 MG TABLET PO SCH ×2 (05:34→17:25)
[2022-04-01] MEDS: metOLazone 5 MG TABLET PO SCH ×2 (05:34→17:25)
[2022-04-01] MEDS: ATORVASTATIN 40 MG TABLET PO SCH (05:34)
[2022-04-01] MEDS: APIXABAN 2.5 MG TABLET PO SCH (05:34)
[2022-04-01] MEDS: ASPIRIN EC 81 MG TABLET PO SCH (05:34)
[2022-04-01] MEDS: LEVOTHYROXINE 112 MCG TABLET PO SCH (05:34)
[2022-04-01] MEDS: AMIODARONE 200 MG TABLET PO SCH ×3 (05:36→22:51)
[2022-04-01] MEDS: SEVELAMER CARBONATE 800 MG TABLET PO SCH ×3 (05:37→21:21)
[2022-04-01] MEDS: ISOSORBIDE DINITRATE 20 MG TABLET PO SCH ×4 (05:38→22:51)
[2022-04-01 06:31] LABS: Basophils % 0.2 % (0.0-0.8); Eosinophils # 0.1 10*3/uL (0.0-0.87); Eosinophils % 2.9 % (0.00-10.9); Hematocrit 22.6 VOL% (35.7-47.0); Hemoglobin 7.1 GM/DL (12.0-16.0); Immature Granulocytes Absolute 0.05 #; Lymphocytes # 0.7 10*3/uL (1.4-4.0); Lymphocytes % 14.6 % (21.3-54.2); Mean Corpuscular HGB Conc 31.4 GM/DL (32-36); Mean Corpuscular Volume 90.8 FL (87-102); Mean Platelet Volume 10.2 FL (9.6-12.0); Monocytes # 0.6 10*3/uL (0.11-0.8); Monocytes % 11.9 % (1.7-12.7); Neutrophils % 69.4 % (38.7-73.9); Platelet Count 204 T/CUMM (130-400); Red Blood Count 2.49 MC/CUMM (3.8-5.5); Red Cell Distribution Width 17.9 % (9.3-17.3); White Blood Count 4.9 T/CUMM (4-12)
[2022-04-01 07:15] LABS: Calcium 6.9 MG/DL (8.5-10.1); Osmolality,Calculated 272.4 MOS/KG (273-304); Potassium 5.7 MMOL/L (3.5-5.1)
[2022-04-01] MEDS: DOCUSATE SODIUM 100 MG CAPSULE PO SCH ×2 (08:43→21:20)
[2022-04-01] MEDS: PANTOPRAZOLE 40 MG TABLET PO SCH (08:43)
[2022-04-01] MEDS: VENLAFAXINE XR 75 MG CAPSULE PO SCH (08:43)
[2022-04-01] MEDS: INSULIN REGULAR 100 UNIT/ML SUBCUT SCH ×2 (08:50→16:39)
[2022-04-01] MEDS: guaiFENesin/DM ER 600-30 MG TABLET PO SCH ×2 (08:53→21:21)
[2022-04-01] MEDS ORDERED: SODIUM POLYSTYRENE SULFATE 15 GM/60 ML BOTTLE PO ONE (14:56)
[2022-04-01] MEDS ORDERED: ZINC OXIDE PASTE 113 GM TUBE TOP PRN (15:33)
[2022-04-01] MEDS: traZODone 50 MG TABLET PO SCH (17:25)
[2022-04-01] MEDS: buPROPion SR 150 MG TABLET PO SCH (21:21)
[2022-04-01] MEDS ORDERED: ALBUTEROL 2.5 MG/3 ML NEB RESP TX PRN (23:29)
[2022-04-02] MEDS ORDERED: ALPRAZolam 0.5 MG TABLET PO ONE (00:20)
[2022-04-02 00:37] LABS: Arterial Base Excess iSTAT 2 MMOL/L (-2.5-2.5); Arterial Bicarbonate iSTAT 26.8 MMOL/L (20-26); Arterial O2 Saturation iSTAT 94 % (95-100); Arterial PCO2 iSTAT 44 MM HG (35-48); Arterial PO2 iSTAT 74 MM HG (80-95); Arterial Total CO2 iSTAT 28 MMO/L (23-27); Arterial pH iSTAT 7.389 (7.35-7.45)
[2022-04-02 05:07] LABS: Calcium 8.7 MG/DL (8.5-10.1); Osmolality,Calculated 276.4 MOS/KG (273-304); Potassium 4.8 MMOL/L (3.5-5.1)
[2022-04-02 05:10] LABS: Basophils % 0.2 % (0.0-0.8); Eosinophils # 0.1 10*3/uL (0.0-0.87); Eosinophils % 2.6 % (0.00-10.9); Hematocrit 24.1 VOL% (35.7-47.0); Hemoglobin 7.5 GM/DL (12.0-16.0); Immature Granulocytes % 0.7 %; Immature Granulocytes Absolute 0.03 #; Lymphocytes # 0.7 10*3/uL (1.4-4.0); Lymphocytes % 16.1 % (21.3-54.2); Mean Corpuscular HGB Conc 31.1 GM/DL (32-36); Mean Corpuscular Volume 92.3 FL (87-102); Mean Platelet Volume 10.3 FL (9.6-12.0); Monocytes # 0.6 10*3/uL (0.11-0.8); Monocytes % 15.1 % (1.7-12.7); Neutrophils % 65.3 % (38.7-73.9); Platelet Count 202 T/CUMM (130-400); Red Blood Count 2.61 MC/CUMM (3.8-5.5); Red Cell Distribution Width 18.2 % (9.3-17.3); White Blood Count 4.2 T/CUMM (4-12)
[2022-04-02] MEDS: ALBUTEROL 2.5 MG/3 ML NEB RESP TX SCH ×5 (07:03→23:45)
[2022-04-02] MEDS: AMIODARONE 200 MG TABLET PO SCH ×2 (07:08→22:28)
[2022-04-02] MEDS: ATORVASTATIN 40 MG TABLET PO SCH (07:08)
[2022-04-02] MEDS: GABAPENTIN 100 MG CAPSULE PO SCH ×3 (07:08→16:16)
[2022-04-02] MEDS: METOCLOPRAMIDE 5 MG TABLET PO SCH ×3 (07:08→16:17)
[2022-04-02] MEDS: carvediloL 6.25 MG TABLET PO SCH ×3 (07:08→16:16)
[2022-04-02] MEDS: ISOSORBIDE DINITRATE 20 MG TABLET PO SCH ×4 (07:08→22:28)
[2022-04-02] MEDS: ASPIRIN EC 81 MG TABLET PO SCH (07:08)
[2022-04-02] MEDS: APIXABAN 2.5 MG TABLET PO SCH (07:08)
[2022-04-02] MEDS: metOLazone 5 MG TABLET PO SCH ×3 (07:09→16:17)
[2022-04-02] MEDS: SEVELAMER CARBONATE 800 MG TABLET PO SCH ×4 (07:09→22:28)
[2022-04-02] MEDS: LEVOTHYROXINE 112 MCG TABLET PO SCH (07:09)
[2022-04-02] MEDS: INSULIN REGULAR 100 UNIT/ML SUBCUT SCH ×2 (07:29→16:13)
[2022-04-02] MEDS: DEXTROSE 10% 250 ML BAG IV PRN ×2 (07:38→21:30)
[2022-04-02] MEDS: PANTOPRAZOLE 40 MG TABLET PO SCH (08:55)
[2022-04-02] MEDS: DOCUSATE SODIUM 100 MG CAPSULE PO SCH ×2 (08:55→22:28)
[2022-04-02] MEDS: VENLAFAXINE XR 75 MG CAPSULE PO SCH (08:55)
[2022-04-02] MEDS: guaiFENesin/DM ER 600-30 MG TABLET PO SCH ×2 (08:55→22:28)
[2022-04-02] MEDS: traZODone 50 MG TABLET PO SCH ×2 (14:38→16:16)
[2022-04-02] MEDS: NITROGLYCERIN SL 0.4 MG TABLET SL PRN ×2 (14:43→22:55)
[2022-04-02] MEDS: buPROPion SR 150 MG TABLET PO SCH (22:28)
[2022-04-03] MEDS: DEXTROSE 10% 250 ML BAG IV PRN ×2 (01:00→05:28)
[2022-04-03] MEDS: NITROGLYCERIN SL 0.4 MG TABLET SL PRN ×2 (01:28→11:27)
[2022-04-03 04:38] LABS: Basophils % 0.5 % (0.0-0.8); Eosinophils # 0.2 10*3/uL (0.0-0.87); Eosinophils % 3.7 % (0.00-10.9); Hematocrit 25.6 VOL% (35.7-47.0); Hemoglobin 7.7 GM/DL (12.0-16.0); Immature Granulocytes % 0.7 %; Immature Granulocytes Absolute 0.03 #; Lymphocytes # 0.5 10*3/uL (1.4-4.0); Lymphocytes % 11.2 % (21.3-54.2); Mean Corpuscular HGB Conc 30.1 GM/DL (32-36); Mean Corpuscular Volume 93.1 FL (87-102); Mean Platelet Volume 8.9 FL (9.6-12.0); Monocytes # 0.6 10*3/uL (0.11-0.8); Monocytes % 13.1 % (1.7-12.7); Neutrophils % 70.8 % (38.7-73.9); Platelet Count 214 T/CUMM (130-400); Red Blood Count 2.75 MC/CUMM (3.8-5.5); Red Cell Distribution Width 18.3 % (9.3-17.3); White Blood Count 4.4 T/CUMM (4-12)
[2022-04-03 05:00] LABS: Calcium 8.7 MG/DL (8.5-10.1); Osmolality,Calculated 274.1 MOS/KG (273-304); Potassium 4.1 MMOL/L (3.5-5.1)
[2022-04-03] MEDS: hydrALAZINE 20 MG/1 ML VIAL IV PRN ×2 (05:25→11:21)
[2022-04-03] MEDS: ASPIRIN EC 81 MG TABLET PO SCH (05:41)
[2022-04-03] MEDS: AMIODARONE 200 MG TABLET PO SCH ×3 (05:41→20:45)
[2022-04-03] MEDS: APIXABAN 2.5 MG TABLET PO SCH (05:42)
[2022-04-03] MEDS: carvediloL 6.25 MG TABLET PO SCH ×3 (05:42→16:59)
[2022-04-03] MEDS: METOCLOPRAMIDE 5 MG TABLET PO SCH ×2 (05:42→16:59)
[2022-04-03] MEDS: GABAPENTIN 100 MG CAPSULE PO SCH ×2 (05:42→16:59)
[2022-04-03] MEDS: ISOSORBIDE DINITRATE 20 MG TABLET PO SCH ×4 (05:42→20:45)
[2022-04-03] MEDS: ATORVASTATIN 40 MG TABLET PO SCH (05:42)
[2022-04-03] MEDS: SEVELAMER CARBONATE 800 MG TABLET PO SCH ×3 (05:43→20:45)
[2022-04-03] MEDS: metOLazone 5 MG TABLET PO SCH ×2 (05:43→16:59)
[2022-04-03] MEDS: LEVOTHYROXINE 112 MCG TABLET PO SCH (05:43)
[2022-04-03] MEDS: ALBUTEROL 2.5 MG/3 ML NEB RESP TX SCH ×3 (07:05→20:11)
[2022-04-03] MEDS: INSULIN REGULAR 100 UNIT/ML SUBCUT SCH ×2 (07:15→15:33)
[2022-04-03] MEDS: guaiFENesin/DM ER 600-30 MG TABLET PO SCH ×2 (08:25→20:45)
[2022-04-03] MEDS: VENLAFAXINE XR 75 MG CAPSULE PO SCH ×2 (08:25→11:20)
[2022-04-03] MEDS: DOCUSATE SODIUM 100 MG CAPSULE PO SCH ×2 (08:25→21:47)
[2022-04-03] MEDS: PANTOPRAZOLE 40 MG TABLET PO SCH (08:25)
[2022-04-03] MEDS: traZODone 50 MG TABLET PO SCH ×3 (11:19→17:32)
[2022-04-03] MEDS: buPROPion SR 150 MG TABLET PO SCH (20:45)
[2022-04-04] MEDS: ALBUTEROL 2.5 MG/3 ML NEB RESP TX SCH ×4 (02:23→19:42)
[2022-04-04] MEDS: AMIODARONE 200 MG TABLET PO SCH ×2 (05:00→20:47)
[2022-04-04] MEDS: ASPIRIN EC 81 MG TABLET PO SCH (05:00)
[2022-04-04] MEDS: ISOSORBIDE DINITRATE 20 MG TABLET PO SCH ×3 (05:00→20:48)
[2022-04-04] MEDS: carvediloL 6.25 MG TABLET PO SCH ×2 (05:00→17:21)
[2022-04-04] MEDS: APIXABAN 2.5 MG TABLET PO SCH (05:00)
[2022-04-04] MEDS: metOLazone 5 MG TABLET PO SCH ×2 (05:01→17:22)
[2022-04-04] MEDS: METOCLOPRAMIDE 5 MG TABLET PO SCH ×2 (05:01→17:22)
[2022-04-04] MEDS: LEVOTHYROXINE 112 MCG TABLET PO SCH (05:01)
[2022-04-04] MEDS: ATORVASTATIN 40 MG TABLET PO SCH (05:01)
[2022-04-04] MEDS: GABAPENTIN 100 MG CAPSULE PO SCH ×2 (05:01→17:22)
[2022-04-04] MEDS: SEVELAMER CARBONATE 800 MG TABLET PO SCH ×3 (05:01→20:48)
[2022-04-04 05:05] LABS: Basophils % 0.3 % (0.0-0.8); Eosinophils # 0.1 10*3/uL (0.0-0.87); Eosinophils % 3.1 % (0.00-10.9); Hematocrit 24.9 VOL% (35.7-47.0); Hemoglobin 7.6 GM/DL (12.0-16.0); Immature Granulocytes % 0.6 %; Immature Granulocytes Absolute 0.02 #; Lymphocytes # 0.5 10*3/uL (1.4-4.0); Lymphocytes % 15.9 % (21.3-54.2); Mean Corpuscular HGB Conc 30.5 GM/DL (32-36); Mean Corpuscular Volume 93.3 FL (87-102); Mean Platelet Volume 9.3 FL (9.6-12.0); Monocytes # 0.4 10*3/uL (0.11-0.8); Monocytes % 13.1 % (1.7-12.7); Platelet Count 192 T/CUMM (130-400); Red Blood Count 2.67 MC/CUMM (3.8-5.5); Red Cell Distribution Width 18.2 % (9.3-17.3); White Blood Count 3.3 T/CUMM (4-12)
[2022-04-04 05:24] LABS: Potassium 4.3 MMOL/L (3.5-5.1)
[2022-04-04] MEDS: DEXTROSE 10% 250 ML BAG IV PRN (05:30)
[2022-04-04] MEDS: INSULIN REGULAR 100 UNIT/ML SUBCUT SCH ×2 (07:32→15:38)
[2022-04-04] MEDS: VENLAFAXINE XR 75 MG CAPSULE PO SCH (09:02)
[2022-04-04] MEDS: PANTOPRAZOLE 40 MG TABLET PO SCH (09:02)
[2022-04-04] MEDS: DOCUSATE SODIUM 100 MG CAPSULE PO SCH ×2 (09:02→20:49)
[2022-04-04] MEDS: guaiFENesin/DM ER 600-30 MG TABLET PO SCH ×2 (09:02→20:52)
[2022-04-04] MEDS: hydrALAZINE 20 MG/1 ML VIAL IV PRN (13:04)
[2022-04-04] MEDS: ONDANSETRON 4 MG/2 ML VIAL IV PRN ×2 (14:24→18:19)
[2022-04-04] MEDS: traZODone 50 MG TABLET PO SCH (17:21)
[2022-04-04] MEDS: buPROPion SR 150 MG TABLET PO SCH (20:47)
[2022-04-04] MEDS: guaiFENesin 200 MG/10 ML UDCUP PO PRN (20:49)
[2022-04-05] MEDS: ALBUTEROL 2.5 MG/3 ML NEB RESP TX SCH ×4 (00:15→19:35)
[2022-04-05] MEDS: ONDANSETRON 4 MG/2 ML VIAL IV PRN (04:39)
[2022-04-05] MEDS: ISOSORBIDE DINITRATE 20 MG TABLET PO SCH ×3 (06:15→21:34)
[2022-04-05] MEDS: AMIODARONE 200 MG TABLET PO SCH ×2 (06:15→21:34)
[2022-04-05] MEDS: SEVELAMER CARBONATE 800 MG TABLET PO SCH ×3 (06:15→21:33)
[2022-04-05] MEDS: ASPIRIN EC 81 MG TABLET PO SCH (06:15)
[2022-04-05] MEDS: GABAPENTIN 100 MG CAPSULE PO SCH ×2 (06:16→16:48)
[2022-04-05] MEDS: ATORVASTATIN 40 MG TABLET PO SCH (06:16)
[2022-04-05] MEDS: APIXABAN 2.5 MG TABLET PO SCH (06:16)
[2022-04-05] MEDS: metOLazone 5 MG TABLET PO SCH ×2 (06:16→16:49)
[2022-04-05] MEDS: METOCLOPRAMIDE 5 MG TABLET PO SCH ×2 (06:16→16:48)
[2022-04-05] MEDS: carvediloL 6.25 MG TABLET PO SCH ×2 (06:17→16:49)
[2022-04-05] MEDS: LEVOTHYROXINE 112 MCG TABLET PO SCH (06:17)
[2022-04-05] MEDS: INSULIN REGULAR 100 UNIT/ML SUBCUT SCH ×2 (06:51→16:02)
[2022-04-05] MEDS: VENLAFAXINE XR 75 MG CAPSULE PO SCH (08:25)
[2022-04-05] MEDS: DOCUSATE SODIUM 100 MG CAPSULE PO SCH ×2 (08:26→21:34)
[2022-04-05] MEDS: PANTOPRAZOLE 40 MG TABLET PO SCH (08:26)
[2022-04-05] MEDS: guaiFENesin/DM ER 600-30 MG TABLET PO SCH ×2 (08:26→21:34)
[2022-04-05] MEDS ORDERED: DEXTROSE 50% 25 GM/50 ML VIAL IV PRN (11:21)
[2022-04-05] MEDS ORDERED: GLUCAGON 1 MG VIAL IM PRN (11:21)
[2022-04-05] MEDS ORDERED: ONDANSETRON ODT 4 MG TABLET PO PRN (14:07)
[2022-04-05] MEDS: traZODone 50 MG TABLET PO SCH (16:49)
[2022-04-05] MEDS: buPROPion SR 150 MG TABLET PO SCH (21:34)
[2022-04-06] MEDS: ALBUTEROL 2.5 MG/3 ML NEB RESP TX SCH ×4 (00:16→19:34)
[2022-04-06] MEDS: ASPIRIN EC 81 MG TABLET PO SCH (05:54)
[2022-04-06] MEDS: METOCLOPRAMIDE 5 MG TABLET PO SCH ×2 (05:55→16:30)
[2022-04-06] MEDS: AMIODARONE 200 MG TABLET PO SCH ×2 (05:56→20:57)
[2022-04-06] MEDS: ATORVASTATIN 40 MG TABLET PO SCH (05:57)
[2022-04-06] MEDS: carvediloL 6.25 MG TABLET PO SCH ×2 (05:57→16:30)
[2022-04-06] MEDS: GABAPENTIN 100 MG CAPSULE PO SCH ×2 (05:57→16:30)
[2022-04-06] MEDS: LEVOTHYROXINE 112 MCG TABLET PO SCH (05:58)
[2022-04-06] MEDS: ISOSORBIDE DINITRATE 20 MG TABLET PO SCH ×3 (05:58→20:57)
[2022-04-06] MEDS: metOLazone 5 MG TABLET PO SCH ×2 (05:58→16:30)
[2022-04-06] MEDS: APIXABAN 2.5 MG TABLET PO SCH (05:58)
[2022-04-06] MEDS: SEVELAMER CARBONATE 800 MG TABLET PO SCH ×3 (07:05→20:56)
[2022-04-06] MEDS: INSULIN REGULAR 100 UNIT/ML SUBCUT SCH (07:32)
[2022-04-06 08:09] LABS: Arterial Base Excess iSTAT 2 MMOL/L (-2.5-2.5); Arterial Bicarbonate iSTAT 28.2 MMOL/L (20-26); Arterial O2 Saturation iSTAT 98 % (95-100); Arterial PCO2 iSTAT 54 MM HG (35-48); Arterial PO2 iSTAT 119 MM HG (80-95); Arterial Total CO2 iSTAT 30 MMO/L (23-27); Arterial pH iSTAT 7.326 (7.35-7.45)
[2022-04-06] MEDS: DOCUSATE SODIUM 100 MG CAPSULE PO SCH ×2 (08:30→20:56)
[2022-04-06] MEDS: PANTOPRAZOLE 40 MG TABLET PO SCH (08:30)
[2022-04-06] MEDS: guaiFENesin/DM ER 600-30 MG TABLET PO SCH ×2 (08:30→20:56)
[2022-04-06] MEDS: VENLAFAXINE XR 75 MG CAPSULE PO SCH (08:30)
[2022-04-06 11:04] LABS: Albumin 2.5 G/DL (3.4-5.0); Bilirubin,Total 0.8 MG/DL (0.20-1.00); Calcium 8.7 MG/DL (8.5-10.1); Osmolality,Calculated 273.1 MOS/KG (273-304); Potassium 5.2 MMOL/L (3.5-5.1); Total Protein 7.1 G/DL (6.4-8.2)
[2022-04-06] MEDS: DEXTROSE 10% 250 ML BAG IV PRN (11:29)
[2022-04-06 12:13] LABS: Basophils % 0.3 % (0.0-0.8); Eosinophils # 0.1 10*3/uL (0.0-0.87); Eosinophils % 2.6 % (0.00-10.9); Hematocrit 22.6 VOL% (35.7-47.0); Hemoglobin 6.8 GM/DL (12.0-16.0); Immature Granulocytes % 0.9 %; Immature Granulocytes Absolute 0.03 #; Lymphocytes # 0.4 10*3/uL (1.4-4.0); Lymphocytes % 12.1 % (21.3-54.2); Mean Corpuscular HGB Conc 30.1 GM/DL (32-36); Mean Platelet Volume 9.4 FL (9.6-12.0); Monocytes # 0.3 10*3/uL (0.11-0.8); Monocytes % 8.9 % (1.7-12.7); Neutrophils % 75.2 % (38.7-73.9); Platelet Count 166 T/CUMM (130-400); Red Blood Count 2.43 MC/CUMM (3.8-5.5); White Blood Count 3.5 T/CUMM (4-12)
[2022-04-06] MEDS: traZODone 50 MG TABLET PO SCH (16:31)
[2022-04-06] MEDS: buPROPion SR 150 MG TABLET PO SCH (20:57)
[2022-04-07] MEDS: ALBUTEROL 2.5 MG/3 ML NEB RESP TX SCH ×4 (00:19→19:57)
[2022-04-07 05:04] LABS: Basophils % 0.5 % (0.0-0.8); Eosinophils # 0.1 10*3/uL (0.0-0.87); Eosinophils % 3.6 % (0.00-10.9); Hemoglobin 6.8 GM/DL (12.0-16.0); Immature Granulocytes % 0.3 %; Immature Granulocytes Absolute 0.01 #; Lymphocytes # 0.6 10*3/uL (1.4-4.0); Lymphocytes % 16.1 % (21.3-54.2); Mean Corpuscular HGB Conc 29.6 GM/DL (32-36); Mean Corpuscular Volume 94.7 FL (87-102); Mean Platelet Volume 9.5 FL (9.6-12.0); Monocytes # 0.5 10*3/uL (0.11-0.8); Monocytes % 11.5 % (1.7-12.7); Platelet Count 199 T/CUMM (130-400); Red Blood Count 2.43 MC/CUMM (3.8-5.5); Red Cell Distribution Width 17.7 % (9.3-17.3); White Blood Count 3.9 T/CUMM (4-12)
[2022-04-07] MEDS: ASPIRIN EC 81 MG TABLET PO SCH (05:28)
[2022-04-07] MEDS: ISOSORBIDE DINITRATE 20 MG TABLET PO SCH ×3 (05:28→20:53)
[2022-04-07] MEDS: carvediloL 6.25 MG TABLET PO SCH ×2 (05:28→17:38)
[2022-04-07] MEDS: LEVOTHYROXINE 112 MCG TABLET PO SCH (05:29)
[2022-04-07] MEDS: METOCLOPRAMIDE 5 MG TABLET PO SCH ×2 (05:29→17:38)
[2022-04-07] MEDS: GABAPENTIN 100 MG CAPSULE PO SCH ×2 (05:29→17:38)
[2022-04-07] MEDS: SEVELAMER CARBONATE 800 MG TABLET PO SCH ×3 (05:29→20:52)
[2022-04-07] MEDS: ATORVASTATIN 40 MG TABLET PO SCH (05:29)
[2022-04-07] MEDS: metOLazone 5 MG TABLET PO SCH ×2 (05:30→17:38)
[2022-04-07] MEDS: APIXABAN 2.5 MG TABLET PO SCH (05:30)
[2022-04-07 05:31] LABS: Calcium 8.9 MG/DL (8.5-10.1); Osmolality,Calculated 273.1 MOS/KG (273-304); Potassium 4.8 MMOL/L (3.5-5.1)
[2022-04-07] MEDS: AMIODARONE 200 MG TABLET PO SCH ×2 (05:46→20:53)
[2022-04-07] MEDS ORDERED: GLUCOSE GEL 15 GM TUBE PO PRN (07:33)
[2022-04-07] MEDS: PANTOPRAZOLE 40 MG TABLET PO SCH (13:38)
[2022-04-07] MEDS: DOCUSATE SODIUM 100 MG CAPSULE PO SCH ×2 (13:38→20:52)
[2022-04-07] MEDS: guaiFENesin/DM ER 600-30 MG TABLET PO SCH ×2 (13:38→20:52)
[2022-04-07] MEDS: VENLAFAXINE XR 75 MG CAPSULE PO SCH (13:38)
[2022-04-07] MEDS: ONDANSETRON 4 MG/2 ML VIAL IV PRN (13:39)
[2022-04-07] MEDS: hydrALAZINE 20 MG/1 ML VIAL IV PRN (13:39)
[2022-04-07] MEDS ORDERED: SODIUM CHLORIDE 0.9% 1,000 ML IV PRN (15:44)
[2022-04-07] MEDS: traZODone 50 MG TABLET PO SCH (17:39)
[2022-04-07] MEDS: buPROPion SR 150 MG TABLET PO SCH (20:52)
[2022-04-07] MEDS: NITROGLYCERIN SL 0.4 MG TABLET SL PRN (23:13)
[2022-04-08] MEDS: ALBUTEROL 2.5 MG/3 ML NEB RESP TX SCH ×4 (01:30→19:27)
[2022-04-08 05:52] LABS: Basophils % 0.1 % (0.0-0.8); Eosinophils # 0.2 10*3/uL (0.0-0.87); Eosinophils % 2.2 % (0.00-10.9); Hemoglobin 7.1 GM/DL (12.0-16.0); Immature Granulocytes % 0.6 %; Immature Granulocytes Absolute 0.04 #; Lymphocytes # 0.5 10*3/uL (1.4-4.0); Lymphocytes % 6.7 % (21.3-54.2); Mean Corpuscular HGB Conc 29.6 GM/DL (32-36); Mean Corpuscular Volume 94.1 FL (87-102); Mean Platelet Volume 10.4 FL (9.6-12.0); Monocytes # 0.6 10*3/uL (0.11-0.8); Neutrophils % 81.4 % (38.7-73.9); Platelet Count 224 T/CUMM (130-400); Red Blood Count 2.55 MC/CUMM (3.8-5.5); Red Cell Distribution Width 17.8 % (9.3-17.3); White Blood Count 6.7 T/CUMM (4-12)
[2022-04-08] MEDS: ASPIRIN EC 81 MG TABLET PO SCH (05:53)
[2022-04-08] MEDS: ISOSORBIDE DINITRATE 20 MG TABLET PO SCH ×3 (05:57→23:11)
[2022-04-08] MEDS: metOLazone 5 MG TABLET PO SCH ×2 (05:58→17:07)
[2022-04-08] MEDS: carvediloL 6.25 MG TABLET PO SCH ×2 (05:59→17:06)
[2022-04-08] MEDS: APIXABAN 2.5 MG TABLET PO SCH (06:00)
[2022-04-08] MEDS: METOCLOPRAMIDE 5 MG TABLET PO SCH ×2 (06:01→17:06)
[2022-04-08] MEDS: LEVOTHYROXINE 112 MCG TABLET PO SCH (06:01)
[2022-04-08] MEDS: GABAPENTIN 100 MG CAPSULE PO SCH ×2 (06:02→17:06)
[2022-04-08] MEDS: ATORVASTATIN 40 MG TABLET PO SCH (06:05)
[2022-04-08 06:06] LABS: Calcium 9.1 MG/DL (8.5-10.1); Osmolality,Calculated 268.2 MOS/KG (273-304); Potassium 4.8 MMOL/L (3.5-5.1)
[2022-04-08] MEDS: AMIODARONE 200 MG TABLET PO SCH ×2 (06:06→23:11)
[2022-04-08] MEDS: SEVELAMER CARBONATE 800 MG TABLET PO SCH ×3 (06:07→23:13)
[2022-04-08] MEDS: PANTOPRAZOLE 40 MG TABLET PO SCH (08:54)
[2022-04-08] MEDS: guaiFENesin/DM ER 600-30 MG TABLET PO SCH ×2 (08:54→23:13)
[2022-04-08] MEDS: VENLAFAXINE XR 75 MG CAPSULE PO SCH (08:55)
[2022-04-08] MEDS: DOCUSATE SODIUM 100 MG CAPSULE PO SCH ×2 (09:20→23:03)
[2022-04-08] MEDS: DEXTROSE 10% 250 ML BAG IV PRN (16:53)
[2022-04-08] MEDS: hydrALAZINE 20 MG/1 ML VIAL IV PRN (16:53)
[2022-04-08] MEDS: traZODone 50 MG TABLET PO SCH (17:06)
[2022-04-08] MEDS: buPROPion SR 150 MG TABLET PO SCH (23:13)
[2022-04-09] MEDS: DEXTROSE 10% 250 ML BAG IV PRN ×3 (00:05→15:34)
[2022-04-09] MEDS: ALBUTEROL 2.5 MG/3 ML NEB RESP TX SCH ×2 (00:19→08:00)
[2022-04-09] MEDS: hydrALAZINE 20 MG/1 ML VIAL IV PRN ×2 (00:46→16:14)
[2022-04-09 05:04] LABS: Basophils % 0.5 % (0.0-0.8); Eosinophils # 0.1 10*3/uL (0.0-0.87); Eosinophils % 3.1 % (0.00-10.9); Hematocrit 24.3 VOL% (35.7-47.0); Hemoglobin 7.1 GM/DL (12.0-16.0); Immature Granulocytes % 0.5 %; Immature Granulocytes Absolute 0.02 #; Lymphocytes # 0.5 10*3/uL (1.4-4.0); Lymphocytes % 13.8 % (21.3-54.2); Mean Corpuscular HGB Conc 29.2 GM/DL (32-36); Mean Corpuscular Volume 93.5 FL (87-102); Mean Platelet Volume 9.6 FL (9.6-12.0); Monocytes # 0.6 10*3/uL (0.11-0.8); Monocytes % 14.3 % (1.7-12.7); Neutrophils % 67.8 % (38.7-73.9); Platelet Count 211 T/CUMM (130-400); Red Cell Distribution Width 17.5 % (9.3-17.3); White Blood Count 3.9 T/CUMM (4-12)
[2022-04-09 05:20] LABS: Osmolality,Calculated 273.1 MOS/KG (273-304); Potassium 4.7 MMOL/L (3.5-5.1)
[2022-04-09] MEDS: ISOSORBIDE DINITRATE 20 MG TABLET PO SCH ×3 (06:07→21:24)
[2022-04-09] MEDS: ASPIRIN EC 81 MG TABLET PO SCH (06:07)
[2022-04-09] MEDS: ATORVASTATIN 40 MG TABLET PO SCH (06:07)
[2022-04-09] MEDS: APIXABAN 2.5 MG TABLET PO SCH (06:07)
[2022-04-09] MEDS: GABAPENTIN 100 MG CAPSULE PO SCH ×2 (06:07→17:31)
[2022-04-09] MEDS: AMIODARONE 200 MG TABLET PO SCH ×2 (06:07→21:24)
[2022-04-09] MEDS: METOCLOPRAMIDE 5 MG TABLET PO SCH ×2 (06:07→17:31)
[2022-04-09] MEDS: carvediloL 6.25 MG TABLET PO SCH ×2 (06:07→17:32)
[2022-04-09] MEDS: SEVELAMER CARBONATE 800 MG TABLET PO SCH ×3 (06:08→21:24)
[2022-04-09] MEDS: LEVOTHYROXINE 112 MCG TABLET PO SCH (06:08)
[2022-04-09] MEDS: metOLazone 5 MG TABLET PO SCH ×2 (06:08→17:31)
[2022-04-09] MEDS: PANTOPRAZOLE 40 MG TABLET PO SCH (09:17)
[2022-04-09] MEDS: VENLAFAXINE XR 75 MG CAPSULE PO SCH (09:17)
[2022-04-09] MEDS: guaiFENesin/DM ER 600-30 MG TABLET PO SCH ×2 (09:17→21:24)
[2022-04-09] MEDS: DOCUSATE SODIUM 100 MG CAPSULE PO SCH ×2 (09:17→21:24)
[2022-04-09] MEDS: ALBUTEROL/IPRATROPIUM 3 ML NEB RESP TX SCH ×2 (14:43→19:38)
[2022-04-09] MEDS: NITROGLYCERIN SL 0.4 MG TABLET SL PRN (15:15)
[2022-04-09] MEDS: traZODone 50 MG TABLET PO SCH (17:32)
[2022-04-09] MEDS: ACETYLCYSTEINE 20% 800 MG/4 ML VIAL RESP TX SCH (19:38)
[2022-04-09] MEDS: buPROPion SR 150 MG TABLET PO SCH (21:24)
[2022-04-10] MEDS: ALBUTEROL/IPRATROPIUM 3 ML NEB RESP TX SCH ×4 (00:45→19:10)
[2022-04-10] MEDS: ACETYLCYSTEINE 20% 800 MG/4 ML VIAL RESP TX SCH ×5 (00:45→19:10)
[2022-04-10 05:23] LABS: Basophils % 0.4 % (0.0-0.8); Eosinophils # 0.1 10*3/uL (0.0-0.87); Eosinophils % 2.4 % (0.00-10.9); Hematocrit 27.5 VOL% (35.7-47.0); Hemoglobin 8.3 GM/DL (12.0-16.0); Immature Granulocytes % 0.7 %; Immature Granulocytes Absolute 0.03 #; Lymphocytes # 0.4 10*3/uL (1.4-4.0); Lymphocytes % 9.5 % (21.3-54.2); Mean Corpuscular HGB Conc 30.2 GM/DL (32-36); Mean Corpuscular Volume 95.2 FL (87-102); Mean Platelet Volume 9.5 FL (9.6-12.0); Monocytes # 0.5 10*3/uL (0.11-0.8); Monocytes % 11.5 % (1.7-12.7); Neutrophils % 75.5 % (38.7-73.9); Platelet Count 214 T/CUMM (130-400); Red Blood Count 2.89 MC/CUMM (3.8-5.5); Red Cell Distribution Width 17.2 % (9.3-17.3); White Blood Count 4.5 T/CUMM (4-12)
[2022-04-10] MEDS: GABAPENTIN 100 MG CAPSULE PO SCH ×2 (05:24→16:06)
[2022-04-10] MEDS: APIXABAN 2.5 MG TABLET PO SCH (05:24)
[2022-04-10] MEDS: ASPIRIN EC 81 MG TABLET PO SCH (05:24)
[2022-04-10] MEDS: metOLazone 5 MG TABLET PO SCH ×2 (05:24→16:07)
[2022-04-10] MEDS: LEVOTHYROXINE 112 MCG TABLET PO SCH (05:24)
[2022-04-10] MEDS: ATORVASTATIN 40 MG TABLET PO SCH (05:24)
[2022-04-10] MEDS: carvediloL 6.25 MG TABLET PO SCH ×2 (05:24→16:06)
[2022-04-10] MEDS: ISOSORBIDE DINITRATE 20 MG TABLET PO SCH ×3 (05:25→20:45)
[2022-04-10] MEDS: AMIODARONE 200 MG TABLET PO SCH ×2 (05:25→20:46)
[2022-04-10] MEDS: METOCLOPRAMIDE 5 MG TABLET PO SCH ×2 (05:26→16:07)
[2022-04-10] MEDS: SEVELAMER CARBONATE 800 MG TABLET PO SCH ×3 (05:28→20:45)
[2022-04-10 05:45] LABS: Calcium 8.7 MG/DL (8.5-10.1); Osmolality,Calculated 269.2 MOS/KG (273-304); Phosphorous 3.2 MG/DL (2.5-4.9); Potassium 4.3 MMOL/L (3.5-5.1)
[2022-04-10] MEDS: DOCUSATE SODIUM 100 MG CAPSULE PO SCH ×2 (08:07→20:46)
[2022-04-10] MEDS: PANTOPRAZOLE 40 MG TABLET PO SCH (08:07)
[2022-04-10] MEDS: VENLAFAXINE XR 75 MG CAPSULE PO SCH (08:08)
[2022-04-10] MEDS: NITROGLYCERIN SL 0.4 MG TABLET SL PRN (08:08)
[2022-04-10] MEDS: guaiFENesin/DM ER 600-30 MG TABLET PO SCH ×2 (08:08→20:46)
[2022-04-10] MEDS: traZODone 50 MG TABLET PO SCH (16:06)
[2022-04-10] MEDS: buPROPion SR 150 MG TABLET PO SCH (20:45)
[2022-04-11] MEDS ORDERED: EPOETIN ALFA-EPBX 4,000 UNIT/ML VIAL IV SCH (00:01)
[2022-04-11] MEDS: NITROGLYCERIN SL 0.4 MG TABLET SL PRN ×5 (03:23→14:29)
[2022-04-11] MEDS: hydrALAZINE 20 MG/1 ML VIAL IV PRN (03:25)
[2022-04-11] MEDS ORDERED: MORPHINE 2 MG/1 ML SYRINGE IV ONE (04:00)
[2022-04-11] MEDS: ASPIRIN EC 81 MG TABLET PO SCH (05:08)
[2022-04-11] MEDS: AMIODARONE 200 MG TABLET PO SCH ×2 (05:09→23:37)
[2022-04-11] MEDS: METOCLOPRAMIDE 5 MG TABLET PO SCH ×2 (05:09→16:24)
[2022-04-11] MEDS: LEVOTHYROXINE 112 MCG TABLET PO SCH (05:09)
[2022-04-11] MEDS: GABAPENTIN 100 MG CAPSULE PO SCH ×2 (05:09→16:23)
[2022-04-11] MEDS: metOLazone 5 MG TABLET PO SCH ×2 (05:09→16:23)
[2022-04-11] MEDS: carvediloL 6.25 MG TABLET PO SCH ×2 (05:09→16:23)
[2022-04-11] MEDS: ATORVASTATIN 40 MG TABLET PO SCH (05:09)
[2022-04-11] MEDS: SEVELAMER CARBONATE 800 MG TABLET PO SCH ×3 (05:09→23:37)
[2022-04-11] MEDS: ISOSORBIDE DINITRATE 20 MG TABLET PO SCH ×3 (05:11→23:37)
[2022-04-11 05:55] LABS: Basophils % 0.2 % (0.0-0.8); Eosinophils # 0.1 10*3/uL (0.0-0.87); Eosinophils % 3.1 % (0.00-10.9); Hematocrit 29.6 VOL% (35.7-47.0); Immature Granulocytes % 0.7 %; Immature Granulocytes Absolute 0.03 #; Lymphocytes # 0.4 10*3/uL (1.4-4.0); Lymphocytes % 9.1 % (21.3-54.2); Mean Corpuscular HGB Conc 30.4 GM/DL (32-36); Mean Corpuscular Volume 94.6 FL (87-102); Mean Platelet Volume 9.4 FL (9.6-12.0); Monocytes # 0.5 10*3/uL (0.11-0.8); Monocytes % 11.3 % (1.7-12.7); Neutrophils % 75.6 % (38.7-73.9); Platelet Count 214 T/CUMM (130-400); Red Blood Count 3.13 MC/CUMM (3.8-5.5); Red Cell Distribution Width 17.3 % (9.3-17.3); White Blood Count 4.5 T/CUMM (4-12)
[2022-04-11 06:13] LABS: Calcium 9.3 MG/DL (8.5-10.1); Osmolality,Calculated 272.4 MOS/KG (273-304); Potassium 4.4 MMOL/L (3.5-5.1)
[2022-04-11] MEDS: ALBUTEROL/IPRATROPIUM 3 ML NEB RESP TX SCH ×4 (07:21→20:00)
[2022-04-11] MEDS: ACETYLCYSTEINE 20% 800 MG/4 ML VIAL RESP TX SCH ×4 (07:21→20:00)
[2022-04-11] MEDS: DOCUSATE SODIUM 100 MG CAPSULE PO SCH ×2 (08:41→23:37)
[2022-04-11] MEDS: VENLAFAXINE XR 75 MG CAPSULE PO SCH (08:41)
[2022-04-11] MEDS: PANTOPRAZOLE 40 MG TABLET PO SCH (08:41)
[2022-04-11] MEDS: guaiFENesin/DM ER 600-30 MG TABLET PO SCH ×2 (08:41→23:37)
[2022-04-11 09:51] LABS: Hepatitis B Core IgM Quant 0.17 Index; Hepatitis B Surface Ag Quant 0.28 Index; Hepatitis B Surface Ag Result Non-Reactive (NonReactive); Hepatitis C Virus Ab Quant > 11.00 Index; Hepatitis C Virus Ab Result Reactive (NonReactive)
[2022-04-11] MEDS: traZODone 50 MG TABLET PO SCH (16:23)
[2022-04-11] MEDS: buPROPion SR 150 MG TABLET PO SCH (23:37)
[2022-04-12] MEDS: ALBUTEROL/IPRATROPIUM 3 ML NEB RESP TX SCH ×4 (00:16→19:49)
[2022-04-12] MEDS: ACETYLCYSTEINE 20% 800 MG/4 ML VIAL RESP TX SCH ×4 (00:16→19:49)
[2022-04-12] MEDS ORDERED: MORPHINE 2 MG/1 ML SYRINGE IV ONE (03:17)
[2022-04-12] MEDS: SEVELAMER CARBONATE 800 MG TABLET PO SCH ×3 (05:25→21:45)
[2022-04-12] MEDS: ASPIRIN EC 81 MG TABLET PO SCH (05:25)
[2022-04-12] MEDS: ATORVASTATIN 40 MG TABLET PO SCH (05:26)
[2022-04-12] MEDS: carvediloL 6.25 MG TABLET PO SCH (05:26)
[2022-04-12] MEDS: GABAPENTIN 100 MG CAPSULE PO SCH ×2 (05:26→17:29)
[2022-04-12] MEDS: metOLazone 5 MG TABLET PO SCH ×2 (05:26→17:30)
[2022-04-12] MEDS: AMIODARONE 200 MG TABLET PO SCH ×2 (05:26→21:45)
[2022-04-12] MEDS: LEVOTHYROXINE 112 MCG TABLET PO SCH (05:26)
[2022-04-12] MEDS: ISOSORBIDE DINITRATE 20 MG TABLET PO SCH ×3 (05:26→21:46)
[2022-04-12] MEDS: METOCLOPRAMIDE 5 MG TABLET PO SCH ×2 (05:26→17:30)
[2022-04-12 06:12] LABS: Basophils % 0.4 % (0.0-0.8); Eosinophils # 0.1 10*3/uL (0.0-0.87); Eosinophils % 2.2 % (0.00-10.9); Hematocrit 31.1 VOL% (35.7-47.0); Hemoglobin 9.1 GM/DL (12.0-16.0); Immature Granulocytes % 0.6 %; Immature Granulocytes Absolute 0.03 #; Lymphocytes # 0.5 10*3/uL (1.4-4.0); Lymphocytes % 11.7 % (21.3-54.2); Mean Corpuscular HGB Conc 29.3 GM/DL (32-36); Mean Corpuscular Volume 98.1 FL (87-102); Mean Platelet Volume 9.9 FL (9.6-12.0); Monocytes # 0.6 10*3/uL (0.11-0.8); Monocytes % 13.2 % (1.7-12.7); Neutrophils % 71.9 % (38.7-73.9); Platelet Count 189 T/CUMM (130-400); Red Blood Count 3.17 MC/CUMM (3.8-5.5); Red Cell Distribution Width 17.2 % (9.3-17.3); White Blood Count 4.6 T/CUMM (4-12)
[2022-04-12 06:25] LABS: Calcium 9.4 MG/DL (8.5-10.1); Osmolality,Calculated 274.8 MOS/KG (273-304); Potassium 4.1 MMOL/L (3.5-5.1)
[2022-04-12] MEDS: DOCUSATE SODIUM 100 MG CAPSULE PO SCH ×2 (08:46→21:44)
[2022-04-12] MEDS: guaiFENesin 200 MG/10 ML UDCUP PO PRN (08:46)
[2022-04-12] MEDS: NITROGLYCERIN SL 0.4 MG TABLET SL PRN (08:46)
[2022-04-12] MEDS: VENLAFAXINE XR 75 MG CAPSULE PO SCH (08:46)
[2022-04-12] MEDS: PANTOPRAZOLE 40 MG TABLET PO SCH (08:47)
[2022-04-12] MEDS: guaiFENesin/DM ER 600-30 MG TABLET PO SCH ×2 (12:09→21:46)
[2022-04-12] MEDS ORDERED: carvediloL 12.5 MG TABLET PO SCH (17:00)
[2022-04-12] MEDS: traZODone 50 MG TABLET PO SCH (17:30)
[2022-04-12] MEDS: hydrALAZINE 20 MG/1 ML VIAL IV PRN (18:02)
[2022-04-12 21:29] VITALS: BP 144/57
[2022-04-12] MEDS: buPROPion SR 150 MG TABLET PO SCH (21:46)
== END 2022-04-13 02:45 | disposition expired | DRG 133 ==
LOC: EDBD → EDUNIT# → N.ED 21:09 → SUATTDRO 03-30 00:02 → N.EDINP 03-30 00:02 → N.3E 03-30 13:55
PROVIDERS: ADMIT Internal Medicine; ATTEND Internal Medicine